=== PATIENT | male | born 1945 | race Caucasian/White ===

== ENCOUNTER 2020-03-17 09:50 | Day surgery (SDC) | payer OTHER, MEDICARE ==
--- OUTSIDE RECORDS SUMMARY | 2020-03-17 09:53 | XMS REPORT | Clinical Summary ---
:1945 Author Organization [facility] Address [address] [place] [address] Care Team Providers Name Role Phone Matthew Skinner Unavailable Allergies Active Allergy Reactions Severity Noted Date Comments Oxycodone Nausea And Vomiting 09/02/2018 Medications Medication Sig Dispensed Refills Start Date End Date Status aspirin 81 MG EC Take 81 mg 0 Ac tive tablet by mouth daily. multivitamin per Take 1 0 Act fatuma tablet tablet by mouth daily. pantoprazole Take 40 mg 0 Active (PROTONIX) 40 MG by mouth tablet daily. acetaminophen Take 500 mg 0 Acti ve (TYLENOL) 500 MG by mouth as tablet needed for Pain. fluticasone Inhale 1 0 Active propion-salmeterol puff by (ADVAIR) 250-50 mouth via mcg/dose diskus inhaler 2 inhaler (two) times daily. atorvastatin Take 1 30 tablet 1 06/17/2018 d (LIPITOR) 40 MG tablet (40 0 tablet mg total) by mouth nightly. amLODIPine Take 1 90 tablet 0 09/29/2018 Disconti nued (NORVASC) 10 MG tablet (10 9 (St op Taking at tablet mg total) by Dischar ge) mouth daily. clopidogrel Take 1 90 tablet 0 09/29/2018 (PLAVIX) 75 mg tablet (75 0 tablet mg total) by mouth daily. metoprolol Take 1 90 tablet 0 09/29/2018 (TOPROL-XL) 25 MG tablet (25 0 24 hr tablet mg total) by mouth daily. mINOCYCLine Take 1 14 capsule 0 04/10/2019 d (MINOCIN,DYNACIN) capsule (100 9 100 MG capsule mg total) by mouth every 12 (twelve) hours for 7 days. Active Problems Problem Noted Date AAA (abdominal aortic aneurysm) 04/09/2019 Carotid stenosis 09/24/2018 Carotid stenosis, asymptomatic, bilateral 09/24/2018 CAD (coronary artery disease) 06/09/2018 S/P carotid endarterectomy 05/14/2018 Hypovolemic shock 05/14/2018 Acute blood loss anemia 05/14/2018 Respiratory insufficiency 05/14/2018 Carotid artery stenosis 05/13/2018 Encounters Date Type Specialty Care Team Description 04/09/2019 Surgery Jesica EVAR EXCLUSION SUSANNA Bolton MD - IP PROC ONLY* * 04/09/2019 - Hospital Encounter Cardiology Jesica Acute blo od loss 04/10/2019 MD Che anemia 04/09/2019 Orders Only General Internal Medicine 04/08/2019 Orders Only Lab Jesica Abdominal aorti c MD Che aneurysm withou t rupture (HCC) (Primary Dx) 04/08/2019 Orders Only Cardiology Che Mooney MD after 03/17/2019 Family History Medical History Relation Name Comments Cancer Father Relation Name Status Comments Father Social History Tobacco Use Types Packs/Day Years Used Date Former Smoker Cigarettes 1 50 Quit: 05/02/20 18 Smokeless Tobacco: Former User Chew, Snuff Alcohol Use Drinks/Week oz/Week Comments Yes 2 Cans of beer 2.0 occasional Alcohol Habits Answer Date Recorded How often do you have a drink containing alcohol? 2-4 times a month 05/08/2018 How many drinks containing alcohol do you have on a Not aske d typical day when you are drinking? How often do you have six or more drinks on one Not asked occasion? Sex Assigned at Date Recorded Not on file Last Filed Vital Signs Vital Sign Reading Time Taken Comments Blood Pressure 139/63 04/10/2019 7:31 AM [facility] Pulse 63 04/10/2019 7:31 AM [facility] Temperature 36.7 C (98.1 F) 04/10/2019 7:31 AM [facility] Respiratory Rate 18 04/10/2019 7:31 AM [facility] Oxygen Saturation 96% 04/10/2019 7:31 AM [facility] Inhaled Oxygen Concentration - - Weight 85.7 kg (189 lb) 04/10/2019 8:03 AM [facility] Height 189.2 cm (6' 2.5") 04/09/2019 5:30 AM [facility] Body Mass Index 23.94 04/09/2019 5:30 AM [facility] Plan of Treatment Health Maintenance Due Date Last Done Comments COLON CANCER SCREENING COLONOSCOPY 1945 MEDICARE ANNUAL WELLNESS (YEAR 2 or FIRST YEAR if no 03/04/2012 IPPE) INFLUENZA VACCINE (#1) 2020 PNEUMOCOCCAL 65+ YRS Completed 11/06/2017 Implants Implanted Type Area Clean Up Helper Banquet Device Shelf Model / Identifier Expiration Serial / Date Lot Floseal [facility] Full Strlprep 5ml [id number] - Sn/A Cement/[place] KING:BIOSCI 08/01/2019 [id number] / Implanted: Qty: 1 on 05/13/2018 at [facility] r/Adhesive N/A / [id number] Stent Excluder C3 [id number] [id number] - [id number] IMPLANTS N/A: WL GORE & 02/11/2022 [id number] / Implanted: Qty: 1 on 04/09/2019 by Che Diego MD at [facility] Aorta ASSC:MED PRDT [id number] / Grft Excluder 14.5x14mm [id number] - [id number] IMPLANTS Left: W L GORE & 03/30/2021 [id number] / Implanted: Qty: 1 on 04/09/2019 by Che Diego MD at [facility] Iliac ASSC:MED PRDT [id number] / Patch Pericard Bovine 8x14cm [id number] - Sn/A Tissue Left: [employer] 10/10/2022 [id number] / Implanted: Qty: 1 on 05/13/2018 by Madison Lopez MD at [facility] Graft/Substi Neck TECH:SURG INNOV N/A / tute [id number] Patch Periph Vascu-Grd 0.8x8cm [id number] - [id number] Tissue [employer] 02/18/2023 [id number] / Implanted: Qty: 1 on 09/24/2018 by Madison Lopez MD at [facility] Graft/Substi TECH:SURG INNOV / tute [id number] Procedures Procedure Name Priority Date/Time Associated Comments Diagnosis VASCULAR DIAGRAM 04/20/2019 5:30 -SCAN PM [facility] REPORT OF PROCEDURE - 04/14/2019 11:05 ENDOSCOPY SCAN AM [facility] CARDIAC CATH REPORT - 04/14/2019 11:05 SCAN AM [facility] VASCULAR DIAGRAM 04/14/2019 11:05 -SCAN AM [facility] RHYTHM STRIP - SCAN 04/14/2019 11:05 AM [facility] TRANSFUSION SERVICE 04/10/2019 5:52 REPORT - SCAN PM [facility] (CELLAVISION MANUAL Routine 04/10/2019 3:47 Resu lts for this DIFF) AM [facility] procedure are i n the results section. CBC W/PLT COUNT & Routine 04/10/2019 3:47 Result s for this AUTO DIFFERENTIAL AM [facility] procedure are in the results section. CBC W/PLT COUNT & Routine 04/10/2019 3:47 Result s for this AUTO DIFFERENTIAL AM [facility] procedure are in the results section. BASIC METABOLIC PANEL Routine 04/10/2019 3:47 Re sults for this (7) AM [facility] procedure are i n the results section. TRANSFUSION SERVICE 04/09/2019 6:05 REPORT - SCAN PM [facility] ECG 12-LEAD Routine 04/09/2019 12:45 Results for this PM [facility] procedure are i n the results section. ECG 12-LEAD Routine 04/09/2019 12:45 PM [facility] Procedure Note - Interface, External Ris In - 04/09/2019 11:48 AM [facility] Ventricular Rate 60 BPM Atrial Rate 60 BPM P-R Interval 168 ms QRS Duration 100 ms Q-T Interval 428 ms QTC Calculation(Bazett) 428 ms P [place] 69 degrees R [place] -59 degrees T [place] 33 degrees Sinus rhythm with marked sin us arrhythmia Left anterior fascicular blo ck Abnormal ECG When compared with ECG of 09:29, Premature atrial complexes a re no longer Present PREPARE LEUKO-REDUCED Routine 04/09/2019 10:45 AM Results for this RBC [facility] procedure are i n the results section. POCT-ACT Routine 04/09/2019 9:44 AM Results for this [facility] procedure are i n the results section. POCT-ACT Routine 04/09/2019 9:07 AM Results for this [facility] procedure are i n the results section. EVAR EXCLUSION MCR - 04/09/2019 6:48 AM Abdominal a ortic IP PROC ONLY [facility] aneurysm (AAA) without rupture (HCC) Case Notes (1)case POP6 (CELLAVISION MANUAL STAT 04/09/2019 6:09 AM R esults for this DIFF) [facility] procedure are i n the results section. CBC W/PLT COUNT & AUTO STAT 04/09/2019 6:09 AM Results for this DIFFERENTIAL [facility] procedure are i n the results section. BASIC METABOLIC PANEL STAT 04/09/2019 6:09 AM Results for this (7) [facility] procedure are i n the results section. CBC W/PLT COUNT & AUTO STAT 04/09/2019 6:09 AM Results for this DIFFERENTIAL [facility] procedure are i n the results section. TYPE AND SCREEN, Routine 04/08/2019 10:50 AM Abdominal aortic Results for this AUTOMATED [facility] aneurysm without procedure a re in rupture (HCC) the results section. PT/APTT Routine 04/08/2019 9:55 AM Abdominal aortic Resu lts for this [facility] aneurysm without procedure a re in rupture (HCC) the results section. (CELLAVISION MANUAL Routine 04/08/2019 9:54 AM Abdominal aort ic Results for this DIFF) [facility] aneurysm without procedure a re in rupture (HCC) the results section. CBC W/PLT COUNT & AUTO Routine 04/08/2019 9:54 AM Abdominal a ortic Results for this DIFFERENTIAL [facility] aneurysm without procedure a re in rupture (HCC) the results section. LIPID PANEL Routine 04/08/2019 9:54 AM Abdominal aortic Resu lts for this [facility] aneurysm without procedure a re in rupture (HCC) the results section. COMPREHENSIVE Routine 04/08/2019 9:54 AM Abdominal aortic Res ults for this METABOLIC PANEL [facility] aneurysm without procedur e are in rupture (HCC) the results section. CBC W/PLT COUNT & AUTO Routine 04/08/2019 9:54 AM Abdominal a ortic Results for this DIFFERENTIAL [facility] aneurysm without procedure a re in rupture (HCC) the results section. after 03/17/2019 Results VASCULAR DIAGRAM -SCAN (04/20/2019 5:30 PM [facility])Only the most recent of2 results within the time period is included. Narrative Performed At This result has an attachment that is no t available. EKG-SCANNED (04/14/2019 11:05 AM [facility]) Narrative Performed At This result has an attachment that is no t available. CARDIAC CATH REPORT - SCAN (04/14/2019 11:05 AM [facility]) Narrative Performed At This result has an attachment that is no t available. RHYTHM STRIP - SCAN (04/14/2019 11:05 AM [facility]) Narrative Performed At This result has an attachment that is no t available. TRANSFUSION SERVICE REPORT - SCAN (04/10/2019 5:52 PM [facility])Only the most recent of2 resultswithin the time period is included. Narrative Performed At This result has an attachment that is no t available. Manual Differential (04/10/2019 3:47 AM [facility])Only the most recent of3 results within the time period is included. Pathologist Sig nature % Neutros 76 % [facility] % Lymphs 6 % [facility] % Monos 14 % [facility] % Eos 4 % [facility] # Neutros 13.07 (H) 1.78 - 5.38 [facility] # Lymphs 1.03 (L) 1.32 - 3.57 [facility] # Monos 2.41 (H) 0.30 - 0.82 [facility] # Eos 0.69 (H) 0.04 - 0.54 [facility] Total Counted 100 [facility] RBC Morphology Normal [facility] WBC Morphology Normal [facility] Platelet Morphology Normal [facility] Artifact Present [facility] Platelet Conc Decreased [facility] Specimen Blood Narrative Performed At Received comment: [facility] User comments: Slide comments: Performing Organization Address City/State/Zipcode Phone Number [facility] [address] [place] [address] CENTER CBC with platelet count + automated diff (04/10/2019 3:47 AM F[facility]ER)Only the most recent of3 resultswithin the time period is included. Pathologist Sig nature WBC 17.2 (H) 3.5 - 10.5 K/L [facility] RBC 3.16 (L) 4.63 - 6.08 M/L [facility] Hemoglobin 10.2 (L) 13.7 - 17.5 GM/DL [facility] Hematocrit 32.7 (L) 40.1 - 51.0 % [facility] MCV 103.5 (H) 79.0 - 92.2 fL [facility] MCH 32.3 (H) 25.7 - 32.2 pg [facility] MCHC 31.2 (L) 32.3 - 36.5 GM/DL [facility] RDW 15.4 (H) 11.6 - 14.4 % [facility] Platelets 56 (L) 150 - 450 K/CU MM [facility] MPV 10.0 9.4 - 12.4 fL [facility] nRBC 0 0 - 0 /100 WBC [facility] Specimen Blood Performing Organization Address City/State/Zipcode Phone Number [facility] [address] [place] [address] [place] Basic Metabolic Panel (04/10/2019 3:47 AM [facility]ER)Only the most recent of2 results within the time period is included. Sodium 136 136 - 145 meq/L [facility] Potassium 4.7 3.5 - 5.1 meq/L [facility] Chloride 106 98 - 107 meq/L [facility] CO2 22 22 - 29 meq/L [facility] BUN 15 7 - 21 mg/dL [facility] Creatinine 1.11 0.57 - 1.25 [facility] mg/dL [facility] Glucose 95 70 - 105 mg/dL [facility] Calcium 8.6 8.4 - 10.2 [facility] mg/dL [facility] EGFR 65Comment: ESTIMATED mL/min/1.73 sq [facility] GFR IS NOT m [facility] ACCURATE CENTER CREATININE CLEARANCE IN PREDICTING GLOMERULAR FILTRATION RATE. ESTIMATED GFR IS NOT APPLICABLE FOR DIALYSIS PATIENTS. Specimen Blood Performing Organization Address City/[facility] Cent[facility]ode Phone Number [facility] [address] [place] [address] CENTER ECG 12 lead (04/09/2019 12:45 PM [facility]) Specimen Narrative Performed At Ventricular Rate 60 BPM GE MUSE Atrial Rate 60 BPM P-R Interval 168 ms QRS Duration 100 ms Q-T Interval 428 ms QTC Calculation(Bazett) 428 ms P [place] 69 degrees R [place] -59 degrees T [place] 33 degrees Sinus rhythm with marked sinus arrhythmi a Left anterior fascicular block Nonspecific ST and T wave abnormality Abnormal ECG When compared with ECG of 24-SEP-2018 09 :29, Premature atrial complexes are no longer Present Confirmed by MD Guillen Roberto ([id number]) on 04/09 2:36:08 PM Procedure Note Interface, External Ris In - 04/09/2019 2:36 PM [facility] Ventricular Rate 60 BPM Atrial Rate 60 BPM P-R Interval 168 ms QRS Duration 100 ms Q-T Interval 428 ms QTC Calculation(Bazett) 428 ms P [place] 69 degrees R [place] -59 degrees T [place] 33 degrees Sinus rhythm with marked sinus arrhythmi a Left anterior fascicular block Nonspecific ST and T wave abnormality Abnormal ECG When compared with ECG of 24-SEP-2018 09 :29, Premature atrial complexes are no longer Present Confirmed by MD Guillen Roberto ([id number]) on 04/09/2019 2:36:08 PM Performing Organization Address City/[facility]/Zipcode Phone Number [employer] MUSE Prepare Leuko-Red RBC (04/09/2019 10:45 AM F[facility]ER) Pathologist Sig nature CROSSMATCH COMPATIBLE SAFETRACE TX Unit ABO A Pos SAFETRACE TX UNIT NUMBER [id number] SAFETRACE TX Status RETURNED FROM ISSUE SAFETRACE TX Blood Bank Product RED BLOOD CELLS SAFETRACE TX PRODUCT CODE [id number] SAFETRACE TX CROSSMATCH COMPATIBLE SAFETRACE TX Unit ABO A Pos SAFETRACE TX UNIT NUMBER [id number] SAFETRACE TX Status RETURNED FROM ISSUE SAFETRACE TX Blood Bank Product RED BLOOD CELLS SAFETRACE TX PRODUCT CODE [id number] SAFETRACE TX Specimen Other Performing Organization Address City/[facility] Phone Number SAFETRACE TX POC ACTIVATED CLOTTING TIME (04/09/2019 9:44 AM F[facility]ING [facility]ER)Only the most recent of2 resultswithin the time period is included. Activated Clotting 208Comment: sec [facility] Reference Range: [facility] 74-137 seconds, CENTER Baseline/TESTED AT [address] [address] Specimen Blood Performing Organization Address [facility] Phone Number [address] [address] CENTER Type and screen, automated (For the [facility] Only) (04/08/2019 10:50 AM [facility]) Pathologist Sig nature ABO/RH AUTOMATED A POSITIVE [facility] Ab Scrn NEGATIVE [facility] Specimen Blood Performing Organization Address [facility] Phone Number [address] [address] PT/aPTT (04/08/2019 9:55 AM [facility]) Pathologist Sig nature Protime 13.2 11.9 - 14.2 seconds [facility] INR 1.0 <=5.9 [facility] PTT 35.7 22.5 - 36.0 seconds [facility] Specimen Blood Narrative Performed At Effective 10/29/2018: PT Reference Range [facility] Change New: 11.9-14.2 Previous: 11.7-14.7 RECOMMENDED COUMADIN/WARFARIN INR THERAPY RANGES STANDARD DOSE: 2.0-3.0 Includes: PROPHYLAXIS for venous thrombosis, systemic embolization; TREATMENT for venous thrombosis and/or pulmonary embolus. HIGH RISK: Target INR is 2.5-3.5 for patients wiht mechanical heart valves. Performing Organization Address [facility] Cent[facility]ode Phone Number [address] [address] [place] Lipid panel (04/08/2019 9:54 AM F[facility]) Pathologist Sig nature Triglycerides 140 mg/dL [facility] Cholesterol 166 mg/dL [facility] [place] HDL 43 mg/dL [facility] LDL Calculated 95 mg/dL [facility] [place] Specimen Blood Narrative Performed At Triglyceride Reference Range: [facility] Low Risk <150 Borderline 150-199 High Risk 200-499 Very High Risk >=500 Cholesterol Reference Range: Low Risk <200 Borderline 200-239 High Risk >240 HDL Cholesterol Reference Range: Low Risk >=60 High Risk <40 LDL Cholesterol Reference Range: Optimal <100 Near Optimal 100-129 Borderline 130-159 High 160-189 Very High >=190 Performing Organization Address City/[facility]/Zipcode Phone Number [address] [address] [place] Comprehensive metabolic panel (04/08/2019 9:54 AM F[facility]ING [facility]ER) Protein, Total 7.8 6.0 - 8.3 [facility] gm/dL [facility] Albumin 4.5 3.5 - 5.0 [facility] g/dL [facility] Alkaline 85 40 - 150 U/L [facility] Phosphatase [facility] Total Bilirubin 0.4 0.2 - 1.2 [facility] mg/dL [facility] Sodium 141 136 - 145 [facility] meq/L [facility] Potassium 4.9 3.5 - 5.1 [facility] meq/L [facility] Chloride 107 98 - 107 [facility] meq/L [facility] CO2 29 22 - 29 meq/L [facility] BUN 12 7 - 21 mg/dL [facility] Creatinine 1.12 0.57 - 1.25 [facility] mg/dL [facility] Glucose 104 70 - 105 [facility] mg/dL [facility] Calcium 9.6 8.4 - 10.2 [facility] mg/dL [facility] AST 24 5 - 34 U/L [facility] ALT 15 6 - 55 U/L [facility] EGFR 64Comment: mL/min/1.73 [facility] ESTIMATED GFR IS sq [facility] NOT [facility] CREATININE CLEARANCE IN PREDICTING GLOMERULAR FILTRATION RATE. ESTIMATED GFR IS NOT APPLICABLE FOR DIALYSIS PATIENTS. Specimen Blood Performing Organization Address City/State/Zipcode Phone Number [facility] [address] [place] [address] CENTER after 03/17/2019 Insurance Payer Benefit Plan / Subscriber ID Effective Dates Phone Addre ss Type Group MEDICARE MEDICARE A B [id number] 2011-Presen Medicare t MCR AARP/[place] [id number] 2017-Present Medigap SUPPLEMENT/[employer] (Home) [address] [place] [phone] Advance Directives For more information, please contact: [phone] Type Date Recorded Patient Acid Dipper Explanati on Power of Carpet Layer Helper 06/09/2018 12:00 AM Code Status Date Activated Date Inactivated Comments Full Code 04/09/2019 5:41 AM 04/10/2019 3:25 PM This code status was determined by: Patient Full Code 09/24/2018 1:57 PM 09/28/2018 5:01 PM This code status was determined by: Patient Full Code 09/24/2018 1:55 PM 09/24/2018 1:57 PM This code status was determined by: Patient Full Code 09/24/2018 7:46 AM 09/24/2018 1:55 PM This code status was determined by: Patient Full Code 06/09/2018 9:27 AM 09/24/2018 6:59 AM This code status was determined by: Patient
--- OUTSIDE RECORDS SUMMARY | 2020-03-17 10:01 | XMS REPORT | Continuity of Care Document ---
:1945 Author Organization [facility] t Address [address] [place] [address] Care Team Providers Name Role Phone MARGARET DIONI Primary Care Physician Unavailable SYSTEM, PROVIDER NOT IN Attending Clinician Unavailable Joss ZAMORA Attending Clinician Unavailable Ray Murphy RN Attending Clinician Unavailable Lisseth GONZALEZ Attending Clinician Dexter AQUINO, S Attending Clinician Unavailable LISSETH Attending Clinician Unavailable Pawel CALIX Attending Clinician VALENTE PRUITT Attending Clinician Unavailable Valente Pruitt MD Attending Clinician Shmuel AQUINO, G Attending Clinician Unavailable Adrien Escobar PharmD Attending Clinician Bayron Warner Attending Clinician Grace BENDING PRESS OPERATOR Attending Clinician Jayashree LAU, S Attending Clinician Unavailable EDILBERTO Attending Clinician Unavailable Edilberto GONZALEZ Attending Clinician Tayo AQUINO Attending Clinician Unavailable LINO Attending Clinician Unavailable Lino GONZALEZ Attending Clinician Phan AQUINO, R Attending Clinician Unavailable Aguilar Stern Attending Clinician Geeta AQUINO, T Attending Clinician Jorge A AQUINO, M Attending Clinician Unavailable Jasen NARVAEZ Attending Clinician Unavailable Emma PAVON, Jasen Attending Clinician Vargas PAVON, Joss Attending Clinician Romelia Burt MD Attending Clinician Ramona CALIX, A. Attending Clinician ALEXSANDRA NOGUEIRA Attending Clinician Unavailable Alexsandra Mccann Attending Clinician Benja AQUINO Attending Clinician Unavailable JOSE PENG Attending Clinician Unavailable Jose Peng MD Attending Clinician Maame AQUINO Attending Clinician Celsa Vallejo RN Attending Clinician Unavailable Jesica PAVON Attending Clinician JESICA Attending Clinician Unavailable GLORIA WANG Attending Clinician Unavailable MARGARET Attending Clinician Unavailable JESICA Admitting Clinician Unavailable GLORIA WANG Admitting Clinician Unavailable MARGARET Admitting Clinician Unavailable Payers Payer Name Policy Type Policy Number Effective Date Expiration Source Date MEDICARE PART A AND B [id number] 2011 00:00:00 AARP-SECONDARY ONLY [id number] 2019 00:00:00 MEDICAREMEDICARE A [id number] [address] baig [id number] 2011 00:00:00 [facility] MCR [id number] SUPPLEMENT/INDIVIDUAL 00:00:00 [id number] 2017-[facility] ap Problems Condition Condition Condition Status Onset Resolution Last Treating Co mments Source Name Details Category Date Date Treatment Clinician Date 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 00:00: n (clinical) (clinical) 00 Encounter Encounter Disease Active 2019- for for 7-27 Anderso antineopla antineopla 00:00: n stic stic 00 chemothera chemothera py py 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 00:00: n leukemia leukemia 00 not having not having achieved achieved remission remission 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 00:00: n 00 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 00 Immunosupp Immunosupp Disease Active M D ression ression 12-10 Anderso 00:00: n 00 Hypertensi Hypertensi Disease Active M D on on 12-10 Anderso 00:00: n 00 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 12-10 Haroldo o coronary coronary 00:00: n artery artery 00 bypass bypass graft graft without without angina angina pectoris pectoris Peripheral Peripheral Disease Active M D vascular vascular 12-10 Haroldo o disease disease 00:00: n 00 Increased Increased Disease Active MD uric acid uric acid 12-10 [facility] level level 00:00: n 00 Other Other Disease Active MD specified specified 12-10 [facility] counseling counseling 00:00: n 00 AAA AAA Disease Active 2018-[address] [facility] (abdominal (abdominal 1-07 [facility] - aortic aortic 00:00: Medical aneurysm) aneurysm) 00 Cent er Carotid Carotid Disease Active [facility] stenosis stenosis 4-[facility] [place] Carotid Carotid Disease Active [facility] stenosis, stenosis, 4-24 [facility] - asymptomat asymptomat 00:00: Me dical ic, ic, 00 Center bilateral bilateral CAD CAD Disease Active [facility] (coronary (coronary 1-07 [facility] - artery artery 00:00: Medical disease) disease) 00 Center S/P S/P Disease Active 2017-[address] [facility] carotid carotid 2-12 [facility] - endarterec endarterec 00:00: Me dical claudette claudette 00 Center Hypovolemi Hypovolemi Disease Active 2017-[address] c shock c shock 2-12 [facility] 00:[facility]: Medical [facility] [place] Acute Acute Disease Active 2017-[address] [facility] blood loss blood loss 2-12 [facility] - anemia anemia 00:00: Medical 00 Center Respirator Respirator Disease Active 2018-[address] y y 2-12 [facility] - insufficie insufficie 00:00: Me dical ncy ncy 00 Center Carotid Carotid Disease Active 2017-[address] [facility] artery artery 2-11 [facility] - stenosis stenosis 00:00: Medica l 00 Center Allergies, Adverse Reactions, Alerts Allergy Allergy Status Severity Reaction(s) Onset Inactive Treating Comm ents Source Name Type Date Date Clinician Oxycodon Propensi Active Nausea And 2018- [facility]omiting [facility]02 [facility] adverse 00:[facility]: Medical reaction 00 Center s Family History Family Member Diagnosis Comments Start Date Stop Date Source Natural father Cancer [facility] Natural father Lung cancer MD Zarco on Natural father Prostate cancer MD Roslyn soares Social History Social Habit Start Date Stop Date Quantity Comments Source History [facility] - Alcohol Std Drinks Medica [facility] History [facility] - Alcohol Binge Medical [address] ter Sex Assigned At MD Zarco on Exposure to Not sure MD Dao SARS-CoV-2 (event) Cigarettes smoked 2020-01-11 2020-01-11 MD Xavier rsmaikel current (pack per 00:00:00 00:00:00 day) - Reported Cigarette 2020-01-11 2020-01-11 MD Dao pack-years 00:00:00 00:00:00 Tobacco use and 2020-01-11 2020-01-11 Never used MD Zarco on exposure 00:00:00 00:00:00 Alcohol intake 2020-01-11 2020-01-11 Current drinker of MD Dao 00:00:00 00:00:00 alcohol (finding) Tobacco Comment 2019-12-10 2019-12-10 quit just prior to Betty Dao 00:00:00 00:00:00 left and rt. carodid surgery and open heart/ 2 bypass History SDOH 2018-05-08 2018-05-[address] [facility] - Alcohol Frequency 00:00:00 00:00:00 [facility] Alcohol Comment 2018-05-08 2018-05-[address] [facility] - 00:00:00 00:00:00 [facility] History of tobacco 1963-10-01 2018-05-02 Current smoker MD Dao use 00:00:00 00:00:00 Smoking Status Start Date Stop Date Source Former smoker 2020-01-11 00:00:00 2020-01-11 00:00:00 MD [place] anneliese Medications Ordered Filled Start Stop Current Ordering Indication Dosage Frequency Signature Comments Components Source Medication Medication Date Date Medication? Clinician (SIG) Name Name valACYclovi 2019-06 Yes Myelodyspla 500mg Take 1 MD denny (VALTREX) 0-06 [facility] tablet Haroldo o 500 mg 00:00: syndrome (500 mg) n tablet 00 (clinical) by mouth daily. amLODIPine 2019-06 Yes daily. (NORVASC) 0 Anderso 10 mg 16:02: n tablet 26 aspirin 81 2019-06 Yes daily. MD mg EC 0- Anderso tablet 16:02: n 26 metoprolol 2019-06 Yes 12.5mg 12.5 mg MD succinate 0-01 daily. Anderso (TOPROL XL) 16:02: n 25 mg 24 hr 26 tablet multivitami 2019-06 Yes 1{tbl} Take 1 MD n 0- tablet by Andersdejan (THERAGRAN) 16:02: mouth as n tablet 26 needed. pantoprazol 2019-06 Yes daily. MD bernal 0 Anderso (PROTONIX) 16:02: n 40 mg EC 26 tablet INV-(2019-06 2020- No Myelodyspla 100mg Take 1 MD 025) 003-11 [facility] 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 Take on days 1-7 in combinatio n with Cedazudrid ine. No food 2 hours before and 2 hours after dose. INV-(2019-06- No Myelodyspla 100mg Take 1 MD 025) 003-11 [facility] tablet Anderso cedazuridin 00:00: 04:59 syndrome (100 mg) n e 100 mg 00 :00 (clinical) by mouth tablet daily for 7 days. Take on days 1-7 in combinatio n with azaCITIDin e. No food 2 hours before and 2 hours after dose. erythromyci Yes 1{appli Administer MD apple (ROMYCIN) 9-22 cation} 1 Pietro so ophthalmic 00:00: applicatio n ointment 00 n to the right eye twice daily. acyclovir 2020-0 Yes 1{tbl} Take 1 MD (ZOVIRAX) 9-22 tablet by Pietro so 800 mg 00:00: mouth 5 n tablet 00 (five) times a day. INV-(0 2020- No Myelodyspla 100mg Take 1 MD 025) 02-03 stic 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 [facility] Cedazudrid ine. No food 2 hours before and 2 hours after dose. 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 Take 1 MD 025) 02-03 stic tablet Anderso cedazuridin 00:00: 04:59 syndrome (100 mg) n e 100 mg 00 :00 (clinical) by mouth tablet daily for 7 days. Take on days 1-7 in combinatio n with azaCITIDin e. No food 2 hours before and 2 hours after dose. acetaminoph Yes 500mg Take 500 M D en 8-31 mg by Anderso (TYLENOL) 12:57: mouth n 500 mg 27 every 6 tablet (six) hours as needed. senna-docus 0 Yes Constipatio 1{tbl} Take 1 MD ate (Senna 8-14 n, not tablet by An derso Plus) 8.6 00:00: otherwise mouth 2 n mg-50 mg 00 specified (two) tablet times a day as needed for constipati on. ondansetron Yes Myelodyspla 8mg Dissolve 1 MD (ZOFRAN-ODT 01-03 stic tablet (8 And erso ) 8 mg 00:00: syndrome mg) on the n disintegrat 00 (clinical) tongue ing tablet every 8 (eight) hours as needed for nausea (prior to chemothera py). 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 Take 1 MD 025) 01-03 [employer] tablet Anderso azaCITIDine 00:00: 00:00 syndrome (100 mg) n 100 mg 00 :00 (clinical) by mouth tablet as directed. Take once on Day -3 (01/05/20) and then starting on Day 2 (01/08/20) take in combinatio n with Cedazuridi ne daily until Day 7. No food 2 hours before and 2 hours after dose. INV-(2020-0 2019-0 2020- No Myelodyspla 100mg Take 1 MD 025) 01-03 stic tablet Anderso cedazuridin 00:00: 00:00 syndrome (100 mg) n e 100 mg 00 :00 (clinical) by mouth tablet as directed. Start taking on Day 2 (01/08/20) in combinatio n with oral azaCITIDin e daily until Day 7 and take one additional dose on Day 22 (01/28/20). No food 2 hours before and 2 hours after dose. allopurinol Yes Chronic 100mg Take 1 MD (Zyloprim) 7-13 myelomonocy tablet Anderso 100 mg 00:00: tic (100 mg) n tablet 00 leukemia by mouth daily. tadalafiL Yes TAKE 1 MD (CIALIS) 10 5-11 TABLET BY And erso mg tablet 00:00: MOUTH n 00 EVERY 72 HOURS NEEDED aspirin 81 2018-06 Yes 81mg QD Take [address] MG EC 1-08 by mouth [facility] - tablet 13:25: daily. Medical 28 Center multivitami 2018-06 Yes 1{tbl} QD Take [address] n per 1-08 tablet by [facility] - tablet 13:25: mouth Medical 28 daily. Center pantoprazol 2018-06 Yes 40mg QD Take [address] [facility] e 1-08 by mouth [facility] - (PROTONIX) 13:25: daily. Medic al 40 MG 28 Center tablet acetaminoph 2018-06 Yes 500mg Take [address] en 1-08 mg by [facility] - (TYLENOL) 13:25: mouth as Medi ilya 500 MG 28 needed for Center tablet Pain. fluticasone 2018-06 Yes 1{puff} Q.5D Inhale [address] propion-beatriz 1-08 puff by [facility] - meterol 13:25: mouth via Medic al (ADVAIR) 28 inhaler 2 Center 250-50 (two) mcg/dose times diskus daily. inhaler mINOCYCLine 2018-06 2019- No 100mg Take [address] (MINOCIN,DY - 11-15 capsule Luke s - NACIN) 100 00:00: 23:59 (100 mg Med ical MG capsule 00 :00 total) by Cent er mouth every 12 (twelve) hours for 7 days. clopidogrel 2019- No 75mg QD Take [address] [facility] (PLAVIX) 75 09-29 tablet (75 L ukes - mg tablet 00:00: 23:59 mg total) Me dical 00 :00 by mouth Center daily. metoprolol 2019- No 25mg QD Take [address] [facility] (TOPROL-XL) 09-29 tablet (25 L ukes - 25 MG 24 hr 00:00: 23:59 mg total) Medical tablet 00 :00 by mouth Center daily. amLODIPine No 10mg QD Take [address] [facility] (NORVASC) 09-29 tablet (10 Doris es - 10 MG 00:00: 00:00 mg total) Medica l tablet 00 :00 by mouth Center daily. atorvastati 2019- No 40mg QD Take [address] [facility] [facility] n (LIPITOR) 06-17 tablet (40 L ukes - 40 MG 00:00: 23:59 mg total) Medica l tablet 00 :00 by mouth Center nightly. rosuvastati Yes daily. n (CRESTOR) 06-10 Anderso 10 mg 00:00: n tablet 00 clopidogrel 2019- No daily. (PLAVIX) 75 06-10 Anderso mg tablet 00:00: 00:00 n 00 :00 Vital Signs Vital Name Observation Time Observation Value Comments Source WEIGHT 2020-03-03 09:09:24 84.2 kg WEIGHT 2020-03-03 09:09:24 84.2 kg WEIGHT 2020-02-04 10:35:22 86.4 kg WEIGHT 2020-02-04 10:35:22 86.4 kg WEIGHT 2020-01-11 11:06:00 87.2 kg WEIGHT 2020-01-11 11:06:00 87.2 kg WEIGHT 2020-01-11 09:07:00 87.2 kg WEIGHT 2020-01-11 09:07:00 87.2 kg WEIGHT 2019-12-24 13:38:43 86.6 kg WEIGHT 2019-12-24 13:38:43 86.6 kg Systolic blood 2020-03-03 18:26:00 129 mm[Hg] MD Alvares jeanine pressure Diastolic blood 2020-03-03 18:26:00 60 mm[Hg] MD Mcgowan nigelson pressure Heart rate 2020-03-03 18:26:00 86 /min MD Pietro coy Body temperature 2020-03-03 14:09:24 36.5 Idania Candice pickard Respiratory rate 2020-03-03 14:09:24 16 /min Candice pickard Body weight 2020-03-03 14:09:24 84.2 kg MD Pietro coy BMI 2020-03-03 14:09:24 24.84 kg/m2 Pietro coy Oxygen saturation in 2020-03-03 14:09:24 96 /min MD Dao Arterial blood by Pulse oximetry Body height 2019-12-10 15:08:03 184.1 cm MD Pietro coy Body weight 2019-04-10 08:03:00 85.73 kg [facility] BMI 2019-04-10 08:03:00 23.94 kg/m2 [facility] Systolic blood 2019-04-10 07:31:00 139 mm[Hg] [facility] Diastolic blood 2019-04-10 07:31:00 63 mm[Hg] [facility] Heart rate 2019-04-10 07:31:00 63 /min [facility] Body temperature 2019-04-10 07:31:00 36.72 Idania [facility] Respiratory rate 2019-04-10 07:31:00 18 /min [facility] Oxygen saturation in 2019-04-10 07:31:00 96 /min [facility] Arterial blood by Medical Ce nter Pulse oximetry Body height 2019-04-09 05:30:00 189.2 cm [facility] Procedures Procedure Date / Time Performing Clinician Source Performed HP CYTOGENETICS BLOOD 2020-03-03 18:23:00 Amarilys Montanez MD COLLECTION HP CG CHROMOSOME ANALYSIS 2020-03-03 18:23:00 Leonela Montanez MD FINAL REPORT HP FC SCATTER FINAL REPORT 2020-03-03 18:23:00 Agustina Montanez MD HEMATOPATHOLOGY BONE MARROW 2020-03-03 18:23:00 MD Feliberto Blackwell INTERPRETATION June HEMATOPATHOLOGY BONE MARROW 2020-03-03 18:23:00 MD Feliberto Blackwell DIFFERENTIAL June [facility] DIAGNOSTIC BONE MARROW 2020-03-03 15:30:00 Leonela Montanez MD ASPIRATIONS COMPREHENSIVE METABOLIC 2020-03-03 12:18:00 Amarilys Montanez MD PANEL COMPLETE BLOOD COUNT W/ 2020-03-03 12:18:00 Amarilys Montanez MD DIFFERENTIAL GAMMA GLUTAMYL TRANSFERASE 2020-03-03 12:18:00 Agustina Montanez MD LACTATE DEHYDROGENASE 2020-03-03 12:18:00 Amarilys Montanez MD MAGNESIUM LEVEL 2020-03-03 12:18:00 Amarilys Montanez MD Pietro son PHOSPHORUS LEVEL 2020-03-03 12:18:00 Amarilys Montanez MD Duc [facility]son URIC ACID 2020-03-03 12:18:00 Amarilys Montanez MD Pietro son URINALYSIS WITH MICROSCOPIC 2020-03-03 12:18:00 Tomas Montanez MD IF INDICATED TYPE AND SCREEN 2020-03-03 12:18:00 Amarilys Montanez MD Pietro son PERIPHERAL SMEAR FOR BONE 2020-03-03 12:18:00 Leonela Montanez MD MARROW GLUCOSE LEVEL 2020-03-03 12:18:00 Amarilys Montanez MD Pietro son BLOOD UREA NITROGEN 2020-03-03 12:18:00 Amarilys Montanez MD nderson ELECTROLYTE PANEL 2020-03-03 12:18:00 Amarilys Montanez MD And erson SERUM CREATININE 2020-03-03 12:18:00 Amarilys Montanez MD Duc [facility]son .GLOMERULAR FILTRATION RATE 2020-03-03 12:18:00 Tomas Montanez MD CALCIUM LEVEL TOTAL 2020-03-03 12:18:00 Amarilys Montanez MDrson ALBUMIN LEVEL 2020-03-03 12:18:00 Amarilys Montanez MD Pietro son ALKALINE PHOSPHATASE 2020-03-03 12:18:00 Amarilys Montanez MD ALANINE AMINOTRANSFERASE 2020-03-03 12:18:00 Amarilys Montanez MD ASPARTATE AMINOTRANSFERASE 2020-03-03 12:18:00 Agustina Montanez MD TOTAL PROTEIN 2020-03-03 12:18:00 Amarilys Montanez MD Pietro son FRACTIONATED BILIRUBIN 2020-03-03 12:18:00 Amarilys Montanez ABORH 2020-03-03 12:18:00 Amarilys Montanez MD Pietro son Results CBC 2020-03-03 12:18:00 Amarilys Montanez MD Pietro [facility] ANTIBODY SCREEN 2020-03-03 12:18:00 Amarilys Montanez MD Pietro [facility] MANUAL DIFFERENTIAL 2020-03-03 12:18:00 Amarilys Montanez MD nderson URINALYSIS MICROSCOPIC 2020-03-03 12:18:00 Amarilys Montanez TMP INTERPRETATION ANTIBODY 2020-03-03 12:18:00 Tomas Montanez MD SCREEN NEGATIVE CLOT EXPIRATION DATE 2020-03-03 12:18:00 Amarilys Montanez MD TYPE AND SCREEN 2020-02-04 15:16:00 Amarilys Montanez MD Pietro [facility] COMPLETE BLOOD COUNT W/ 2020-02-04 15:16:00 Amarilys Montanez MD DIFFERENTIAL TOTAL PROTEIN 2020-02-04 15:16:00 Amarilys Montanez MD Pietro [facility] ALBUMIN LEVEL 2020-02-04 15:16:00 Amarilys Montanez MD Pietro [facility] CALCIUM LEVEL TOTAL 2020-02-04 15:16:00 Amarilys Montanez MD nderson PHOSPHORUS LEVEL 2020-02-04 15:16:00 Amarilys Montanez MD [facility] GLUCOSE, RANDOM 2020-02-04 15:16:00 Amarilys Montanez MD Pietro [facility] BLOOD UREA NITROGEN 2020-02-04 15:16:00 Amarilys Montanez MD nderson SERUM CREATININE 2020-02-04 15:16:00 Amarilys Montanez MD [facility] URIC ACID 2020-02-04 15:16:00 Amarilys Montanez MD Pietrobanner FRACTIONATED BILIRUBIN 2020-02-04 15:16:00 Amarilys Montanez ALKALINE PHOSPHATASE 2020-02-04 15:16:00 Amarilys Montanez MD LACTATE DEHYDROGENASE 2020-02-04 15:16:00 Amarilys Montanez MD ALANINE AMINOTRANSFERASE 2020-02-04 15:16:00 Amarilys Montanez MD ELECTROLYTE PANEL 2020-02-04 15:16:00 Amarilys Montanez MD And erson MAGNESIUM LEVEL 2020-02-04 15:16:00 Amarilys Montanez MD Pietro son ASPARTATE AMINOTRANSFERASE 2020-02-04 15:16:00 Agustina Montanez MD GAMMA GLUTAMYL TRANSFERASE 2020-02-04 15:16:00 Agustina Montanez MD URINALYSIS WITH MICROSCOPIC 2020-02-04 15:16:00 Tomas Montanez MD IF INDICATED ABORH 2020-02-04 15:16:00 Amarilys Montanez MD Pietro [facility] ANTIBODY SCREEN 2020-02-04 15:16:00 Amarilys Montanez MD Pietro [facility] Results CBC 2020-02-04 15:16:00 Amarilys Montanez MD Pietrobanner MANUAL DIFFERENTIAL 2020-02-04 15:16:00 Amarilys Montanez MD nderson SERUM CREATININE 2020-02-04 15:16:00 Amarilys Montanez MD [facility] .GLOMERULAR FILTRATION RATE 2020-02-04 15:16:00 Tomas Montanez MD URINALYSIS MICROSCOPIC 2020-02-04 15:16:00 Amarilys Montanez CLOT EXPIRATION DATE 2020-02-04 15:16:00 Amarilys Montanez MD TMP INTERPRETATION ANTIBODY 2020-02-04 15:16:00 Tomas Montanez MD SCREEN NEGATIVE COMPLETE BLOOD COUNT W/ 2020-02-01 11:50:00 Amarilys Montanez MD DIFFERENTIAL TOTAL PROTEIN 2020-02-01 11:50:00 Amarilys Montanez MD Pietro [facility] ALBUMIN LEVEL 2020-02-01 11:50:00 Amarilys Montanez MD Pietro [facility] CALCIUM LEVEL TOTAL 2020-02-01 11:50:00 Amarilys Montanez MD nderson PHOSPHORUS LEVEL 2020-02-01 11:50:00 Amarilys Montanez MD [facility]son GLUCOSE, RANDOM 2020-02-01 11:50:00 Amarilys Montanez MD Pietro son BLOOD UREA NITROGEN 2020-02-01 11:50:00 Amarilys Montanez MD nderson SERUM CREATININE 2020-02-01 11:50:00 Amarilys Montanez MD [facility] URIC ACID 2020-02-01 11:50:00 Amarilys Montanez MD Pietrobanner FRACTIONATED BILIRUBIN 2020-02-01 11:50:00 Amarilys Montanez ALKALINE PHOSPHATASE 2020-02-01 11:50:00 Amarilys Montanez MD LACTATE DEHYDROGENASE 2020-02-01 11:50:00 Amarilys Montanez MD ALANINE AMINOTRANSFERASE 2020-02-01 11:50:00 Amarilys Montanez MD ELECTROLYTE PANEL 2020-02-01 11:50:00 Amarilys Montanez MD And erson MAGNESIUM LEVEL 2020-02-01 11:50:00 Amarilys Montanez MD Pietro son ABORH 2020-02-01 11:50:00 Amarilys Montanez MD [facility]anner ANTIBODY SCREEN 2020-02-01 11:50:00 Amarilys Montanez MD Pietro [facility] Results CBC 2020-02-01 11:50:00 Amarilys Montanez MD Piet[facility]anner MANUAL DIFFERENTIAL 2020-02-01 11:50:00 Amarilys Montanez MD nderson SERUM CREATININE 2020-02-01 11:50:00 Amarilys Montanez MD [facility] .GLOMERULAR FILTRATION RATE 2020-02-01 11:50:00 Tomas Montanez MD TMP INTERPRETATION ANTIBODY 2020-02-01 11:50:00 Tomas Montanez MD SCREEN NEGATIVE CLOT EXPIRATION DATE 2020-02-01 11:50:00 Amarilys Montanez MD TYPE AND SCREEN 2020-01-27 12:33:00 Amarilys Montanez MD Pietrobanner COMPLETE BLOOD COUNT W/ 2020-01-27 12:33:00 Amarilys Montanez MD DIFFERENTIAL TOTAL PROTEIN 2020-01-27 12:33:00 Amarilys Montanez MD Pietro son ALBUMIN LEVEL 2020-01-27 12:33:00 Amarilys Montanez MD Pietro son CALCIUM LEVEL TOTAL 2020-01-27 12:33:00 Amarilys Montanez MD nderson PHOSPHORUS LEVEL 2020-01-27 12:33:00 Amarilys Montanez MD [facility]son GLUCOSE, RANDOM 2020-01-27 12:33:00 Amarilys Montanez MD Pietro son BLOOD UREA NITROGEN 2020-01-27 12:33:00 Amarilys Montanez MD nderson SERUM CREATININE 2020-01-27 12:33:00 Amarilys Montanez MD [facility] URIC ACID 2020-01-27 12:33:00 Amarilys Montanez MD Pietro son FRACTIONATED BILIRUBIN 2020-01-27 12:33:00 Amarilys Montanez ALKALINE PHOSPHATASE 2020-01-27 12:33:00 Amarilys Montanez MD LACTATE DEHYDROGENASE 2020-01-27 12:33:00 Amarilys Montanez MD ALANINE AMINOTRANSFERASE 2020-01-27 12:33:00 Amarilys Montanez MD ELECTROLYTE PANEL 2020-01-27 12:33:00 Amarilys Montanez MD And erson MAGNESIUM LEVEL 2020-01-27 12:33:00 Amarilys Montanez MD Pietro son ABORH 2020-01-27 12:33:00 Amarilys Montanez MD Pietro son ANTIBODY SCREEN 2020-01-27 12:33:00 Amarilys Montanez MD Pietro son Results CBC 2020-01-27 12:33:00 Amarilys Montanez MD Pietro son MANUAL DIFFERENTIAL 2020-01-27 12:33:00 Amarilys Montanez MD nderson SERUM CREATININE 2020-01-27 12:33:00 Amarilys Montanez MD [facility] .GLOMERULAR FILTRATION RATE 2020-01-27 12:33:00 Tomas Montanez MD CLOT EXPIRATION DATE 2020-01-27 12:33:00 Amarilys Montanez MD TMP INTERPRETATION ANTIBODY 2020-01-27 12:33:00 Tomas Montanez MD SCREEN NEGATIVE TOTAL PROTEIN 2020-01-25 12:01:00 Amarilys Montanez MD Pietro son ALBUMIN LEVEL 2020-01-25 12:01:00 Amarilys Montanez MD Pietro son CALCIUM LEVEL TOTAL 2020-01-25 12:01:00 Amarilys Montanez MD nderson PHOSPHORUS LEVEL 2020-01-25 12:01:00 Amarilys Montanez MD Duc [facility]son GLUCOSE, RANDOM 2020-01-25 12:01:00 Amarilys Montanez MD Pietro [facility] BLOOD UREA NITROGEN 2020-01-25 12:01:00 Amarilys Montanez MD nderson SERUM CREATININE 2020-01-25 12:01:00 Amarilys Montanez MD Duc [facility]son URIC ACID 2020-01-25 12:01:00 Amarilys Montanez MD Pietrobanner FRACTIONATED BILIRUBIN 2020-01-25 12:01:00 Amarilys Montanez ALKALINE PHOSPHATASE 2020-01-25 12:01:00 Amarilys Montanez MD LACTATE DEHYDROGENASE 2020-01-25 12:01:00 Amarilsy Montanez MD ALANINE AMINOTRANSFERASE 2020-01-25 12:01:00 Amarilys Montanez MD ELECTROLYTE PANEL 2020-01-25 12:01:00 Amarilys Montanez MD And erson MAGNESIUM LEVEL 2020-01-25 12:01:00 Amarilys Montanez MD Piet[facility]anner ASPARTATE AMINOTRANSFERASE 2020-01-25 12:01:00 Agustina Montanez MD TYPE AND SCREEN 2020-01-25 12:01:00 Amarilys Montanez MD [facility]anner COMPLETE BLOOD COUNT W/ 2020-01-25 12:01:00 Amarilys Montanez MD DIFFERENTIAL SERUM CREATININE 2020-01-25 12:01:00 Amarilys Montanez MD Duc rson .GLOMERULAR FILTRATION RATE 2020-01-25 12:01:00 Tomas Montanez MD Results CBC 2020-01-25 12:01:00 Amarilys Montanez MD Piet[facility]anner MANUAL DIFFERENTIAL 2020-01-25 12:01:00 Amarilys Montanez MD nderson ABORH 2020-01-25 12:01:00 Amarilys Montanez MD [facility] ANTIBODY SCREEN 2020-01-25 12:01:00 Amarilys Montanez MD [facility] CLOT EXPIRATION DATE 2020-01-25 12:01: Amarilys Montanez MD TMP INTERPRETATION ANTIBODY 2020-01-25 12:01: Tomas Montanez MD SCREEN NEGATIVE COMPLETE BLOOD COUNT W/ 2020-01-21 12:29:00 Mervat Mercer MD nderson DIFFERENTIAL TOTAL PROTEIN 2020-01-21 12:29: Mervat Mercer MD ALBUMIN LEVEL 2020-01-21 12:29: Mervat Mercer MD CALCIUM LEVEL TOTAL 2020-01-21 12:29: Mervat Mercer MD [facility] PHOSPHORUS LEVEL 2020-01-21 12:29: Mervat Mercer MD GLUCOSE, RANDOM 2020-01-21 12:29: Mervat Mercer MD BLOOD UREA NITROGEN 2020-01-21 12:29: Mervat Mercer MD Pietrovirgil coy SERUM CREATININE 2020-01-21 12:29: Mervat Mercer MD URIC ACID 2020-01-21 12:29: Mervat Mercer MD FRACTIONATED BILIRUBIN 2020-01-21 12:29: Mervat Mercer MD derson ALKALINE PHOSPHATASE 2020-01-21 12:29: Mervat Mercer MD Duc [facility] LACTATE DEHYDROGENASE 2020-01-21 12:29: Mervat Mercer MD And erson ALANINE AMINOTRANSFERASE 2020-01-21 12:29: Mervat Mercer MD ELECTROLYTE PANEL 2020-01-21 12:29: Mervat Mercer MD And[place] n MAGNESIUM LEVEL 2020-01-21 12:29: Mervat Mercer MD ABORH 2020-01-21 12:29: Mervat Mercer MD ANTIBODY SCREEN 2020-01-21 12:29: Mervat Mercer MD Results CBC 2020-01-21 12:29: Mervat Mercer MD MANUAL DIFFERENTIAL 2020-01-21 12:29:00 Mervat Mercer MD Pietro coy SERUM CREATININE 2020-01-21 12:29: Mervat Mercer MD .GLOMERULAR FILTRATION RATE 2020-01-21 12:29: Mervat Mercer MD TMP INTERPRETATION ANTIBODY 2020-01-21 12:29:00 Mervat Mercer MD SCREEN NEGATIVE CLOT EXPIRATION DATE 2020-01-21 12:29:00 Mervat Mercer MD Duc [facility] TOTAL PROTEIN 2020-01-18 11:49:00 Amarilys Montanez MD Pietro son ALBUMIN LEVEL 2020-01-18 11:49:00 Amarilys Montanez MD [facility] son CALCIUM LEVEL TOTAL 2020-01-18 11:49:00 Amarilys Montanez MD nderson PHOSPHORUS LEVEL 2020-01-18 11:49:00 Amarilys Montanez MD Duc rson GLUCOSE, RANDOM 2020-01-18 11:49:00 Amarilys Montanez MD Piet[facility] son BLOOD UREA NITROGEN 2020-01-18 11:49:00 Amarilys Montanez MD nderson SERUM CREATININE 2020-01-18 11:49:00 Amarilys Montanez MD [facility] URIC ACID 2020-01-18 11:49:00 Amarilys Montanez MD [facility] FRACTIONATED BILIRUBIN 2020-01-18 11:49:00 Amarilys Montanez ALKALINE PHOSPHATASE 2020-01-18 11:49:00 Amarilys Montanez MD LACTATE DEHYDROGENASE 2020-01-18 11:49:00 Amarilys Montanez MD ALANINE AMINOTRANSFERASE 2020-01-18 11:49:00 Amarilys Montanez MD ELECTROLYTE PANEL 2020-01-18 11:49:00 Amarilys Montanez MD And erson MAGNESIUM LEVEL 2020-01-18 11:49:00 Amarilys Montanez MD [facility] ASPARTATE AMINOTRANSFERASE 2020-01-18 11:49:00 Agustina Montanez MD COMPLETE BLOOD COUNT W/ 2020-01-18 11:49:00 Amarilys Montanez MD DIFFERENTIAL SERUM CREATININE 2020-01-18 11:49:00 Amarilys Montanez MD [place] [facility] .GLOMERULAR FILTRATION RATE 2020-01-18 11:49:00 Tomas Montanez MD Results CBC 2020-01-18 11:49:00 Amarilys Montanez MD [facility] MANUAL DIFFERENTIAL 2020-01-18 11:49:00 Amarilys Montanez MD nderson ABORH 2020-01-18 11:49:00 Amarilys Montanez MD [facility] ANTIBODY SCREEN 2020-01-18 11:49:00 Amarilys Montanez MD [facility] TMP INTERPRETATION ANTIBODY 2020-01-18 11:49:00 Tomas Montanez MD SCREEN NEGATIVE CLOT EXPIRATION DATE 2020-01-18 11:49:00 Amarilys Montanez MD TYPE AND SCREEN 2020-01-14 12:41:00 Amarilys Montanez MD [facility] COMPLETE BLOOD COUNT W/ 2020-01-14 12:41:00 Amarilys Montanez MD DIFFERENTIAL TOTAL PROTEIN 2020-01-14 12:41:00 Amarilys Montanez MD [facility] ALBUMIN LEVEL 2020-01-14 12:41:00 Amarilys Montanez MD [facility] CALCIUM LEVEL TOTAL 2020-01-14 12:41:00 Amarilys Montanez MD nderson PHOSPHORUS LEVEL 2020-01-14 12:41:00 Amarilys Montanez MD Duc [facility] GLUCOSE, RANDOM 2020-01-14 12:41:00 Amarilys Montanez MD [facility] BLOOD UREA NITROGEN 2020-01-14 12:41:00 Amarilys Montanez MD nderson SERUM CREATININE 2020-01-14 12:41:00 Amarilys Montanez MD [place] [facility] URIC ACID 2020-01-14 12:41:00 Amarilys Montanez MD [facility] FRACTIONATED BILIRUBIN 2020-01-14 12:41:00 Amarilys Montanez ALKALINE PHOSPHATASE 2020-01-14 12:41:00 Amarilys Montanez MD LACTATE DEHYDROGENASE 2020-01-14 12:41:00 Amarilys Montanez MD ALANINE AMINOTRANSFERASE 2020-01-14 12:41:00 Amarilys Montanez MD ELECTROLYTE PANEL 2020-01-14 12:41:00 Amarilys Montanez MD And erson MAGNESIUM LEVEL 2020-01-14 12:41:00 Amarilys Montanez MD [facility] ABORH 2020-01-14 12:41:00 Amarilys Montanez MD [facility] ANTIBODY SCREEN 2020-01-14 12:41:00 Amarilys Montanez MD Pietro son Results CBC 2020-01-14 12:41:00 Amarilys Montanez MD [facility] son MANUAL DIFFERENTIAL 2020-01-14 12:41:00 Amarilys Montanez MD nderson SERUM CREATININE 2020-01-14 12:41:00 Amarilys Montanez MD [place] [facility] .GLOMERULAR FILTRATION RATE 2020-01-14 12:41:00 Tomas Montanez MD CLOT EXPIRATION DATE 2020-01-14 12:41:00 Amarilys Montanez MD TMP INTERPRETATION ANTIBODY 2020-01-14 12:41:00 Tomas Montanez MD SCREEN NEGATIVE TYPE AND SCREEN 2020-01-11 13:31:00 Amarilys Montanez MD Piet[facility] son COMPLETE BLOOD COUNT W/ 2020-01-11 13:31:00 Amarilys Montanez MD DIFFERENTIAL TOTAL PROTEIN 2020-01-11 13:31:00 Amarilys Montanez MD Pietro son ALBUMIN LEVEL 2020-01-11 13:31:00 Amarilys Montanez MD Piet[facility] son CALCIUM LEVEL TOTAL 2020-01-11 13:31:00 Amarilys Montanez MD nderson PHOSPHORUS LEVEL 2020-01-11 13:31:00 Amarilys Montaenz MD [facility] GLUCOSE, RANDOM 2020-01-11 13:31:00 Amarilys Montanez MD Piet[facility] son BLOOD UREA NITROGEN 2020-01-11 13:31:00 Amarilys Montanez MD nderson SERUM CREATININE 2020-01-11 13:31:00 Amarilys Montanez MD [place] [facility] URIC ACID 2020-01-11 13:31:00 Amarilys Montanez MD Piet[facility] son FRACTIONATED BILIRUBIN 2020-01-11 13:31:00 Amarilys Montanez ALKALINE PHOSPHATASE 2020-01-11 13:31:00 Amarilys Montanez MD LACTATE DEHYDROGENASE 2020-01-11 13:31:00 Amarilys Montanez MD ALANINE AMINOTRANSFERASE 2020-01-11 13:31:00 Amarilys Montanez MD ELECTROLYTE PANEL 2020-01-11 13:31:00 Amarilys Montanez MD And erson MAGNESIUM LEVEL 2020-01-11 13:31:00 Amarilys Montanez MD Pietro son ABORH 2020-01-11 13:31:00 Amarilys Montanez MD [facility] son ANTIBODY SCREEN 2020-01-11 13:31:00 Amarilys Montanez MD Piet[facility] son Results CBC 2020-01-11 13:31:00 Amarilys Montanez MD [facility] son MANUAL DIFFERENTIAL 2020-01-11 13:31:00 Amarilys Montanez MD nderson SERUM CREATININE 2020-01-11 13:31:00 Amarilys Montanez MD [place] [facility] .GLOMERULAR FILTRATION RATE 2020-01-11 13:31:00 Tomas Montanez MD CLOT EXPIRATION DATE 2020-01-11 13:31:00 Amarilys Montanez MD TMP INTERPRETATION ANTIBODY 2020-01-11 13:31:00 Tomas Montanez MD SCREEN NEGATIVE COMPLETE BLOOD COUNT W/ 2020-01-07 12:44:00 MD Feliberto Blackwell DIFFERENTIAL June GAMMA GLUTAMYL TRANSFERASE 2020-01-07 12:44:00 MD Feliberto Blackwell June COMPLETE BLOOD COUNT W/ 2020-01-07 12:44:00 Amarilys Montanez MD DIFFERENTIAL TOTAL PROTEIN 2020-01-07 12:44:00 Amarilys Montanez MD Pietro son ALBUMIN LEVEL 2020-01-07 12:44:00 Amarilys Montanez MD Piet[facility] son CALCIUM LEVEL TOTAL 2020-01-07 12:44:00 Amarilys Montanez MD nderson PHOSPHORUS LEVEL 2020-01-07 12:44:00 Amarilys Montanez MD Duc [facility] GLUCOSE, RANDOM 2020-01-07 12:44:00 Amarilys Montanez MD [facility] son BLOOD UREA NITROGEN 2020-01-07 12:44:00 Amarilys Montanez MD nderson SERUM CREATININE 2020-01-07 12:44:00 Amarilys Montanez MD [place] [facility] URIC ACID 2020-01-07 12:44:00 Amarilys Montanez MD Pietro son FRACTIONATED BILIRUBIN 2020-01-07 12:44:00 Amarilys Montanez ALKALINE PHOSPHATASE 2020-01-07 12:44:00 Amarilys Montanez MD LACTATE DEHYDROGENASE 2020-01-07 12:44:00 Amarilys Montanez MD ALANINE AMINOTRANSFERASE 2020-01-07 12:44:00 Amarilys Montanez MD ELECTROLYTE PANEL 2020-01-07 12:44:00 Amarilys Montanez MD And erson MAGNESIUM LEVEL 2020-01-07 12:44:00 Amarilys Montanez MD Piet[facility] son GLUCOSE LEVEL 2020-01-07 12:44:00 MD Feliberto Blackwell June BLOOD UREA NITROGEN 2020-01-07 12:44:00 Valente Pruitt MD [place] [facility] June ELECTROLYTE PANEL 2020-01-07 12:44:00 Valente Pruitt MD Harold[place] on June CALCIUM LEVEL TOTAL 2020-01-07 12:44:00 Valente Pruitt MD Duc [facility] June ALBUMIN LEVEL 2020-01-07 12:44:00 MD Feliberto Blackwell June ALKALINE PHOSPHATASE 2020-01-07 12:44:00 Valente Pruitt MD And erson June ALANINE AMINOTRANSFERASE 2020-01-07 12:44:00 MD Feliberto Blackwell June ASPARTATE AMINOTRANSFERASE 2020-01-07 12:44:00 MD Feliberto Blackwell June TOTAL PROTEIN 2020-01-07 12:44:00 MD Feliberto Blackwell June FRACTIONATED BILIRUBIN 2020-01-07 12:44:00 MD Candice Blackwell nderson June ABORH 2020-01-07 12:44:00 Amarilys Montanez MD Piet[facility] son ANTIBODY SCREEN 2020-01-07 12:44:00 Amarilys Montanez MD Piet[facility] son Results CBC 2020-01-07 12:44:00 Amarilys Montanez MD [facility] son MANUAL DIFFERENTIAL 2020-01-07 12:44:00 Amarilys Montanez MD nderson SERUM CREATININE 2020-01-07 12:44:00 Amarilys Montanez MD [place] [facility] .GLOMERULAR FILTRATION RATE 2020-01-07 12:44:00 Tomas Montanez MD CLOT EXPIRATION DATE 2020-01-07 12:44:00 Amarilys Montanez MD TMP INTERPRETATION ANTIBODY 2020-01-07 12:44:00 Tomas Montanez MD SCREEN NEGATIVE GENERAL LABORATORY ADD ON 2020-01-04 23:28:00 Leonela Montanez MD TEST TOTAL PROTEIN 2020-01-04 18:13:00 Amarilys Montanez MD [facility] ALBUMIN LEVEL 2020-01-04 18:13:00 Amarilys Montanez MD [facility] CALCIUM LEVEL TOTAL 2020-01-04 18:13:00 Amarilys Montanez MD nderson PHOSPHORUS LEVEL 2020-01-04 18:13:00 Amarilys Montanez MD [place] [facility] GLUCOSE, RANDOM 2020-01-04 18:13:00 Amarilys Montanez MD [facility] BLOOD UREA NITROGEN 2020-01-04 18:13:00 Amarilys Montanez MD nderson SERUM CREATININE 2020-01-04 18:13:00 Amarilys Montanez MD [place] [facility] URIC ACID 2020-01-04 18:13:00 Amarilys Montanez MD [facility] FRACTIONATED BILIRUBIN 2020-01-04 18:13:00 Amarilys Montanez ALKALINE PHOSPHATASE 2020-01-04 18:13:00 Amarilys Montanez MD LACTATE DEHYDROGENASE 2020-01-04 18:13:00 Amarilys Montanez MD ALANINE AMINOTRANSFERASE 2020-01-04 18:13:00 Amarilys Montanez MD ELECTROLYTE PANEL 2020-01-04 18:13:00 Amarilys Montanez MD And erson MAGNESIUM LEVEL 2020-01-04 18:13:00 Amarilys Montanez MD [facility] ASPARTATE AMINOTRANSFERASE 2020-01-04 18:13:00 Agustina Montanez MD TYPE AND SCREEN 2020-01-04 18:13:00 Amarilys Montanez MD [facility] COMPLETE BLOOD COUNT W/ 2020-01-04 18:13:00 Amarilys Montanez MD DIFFERENTIAL URINALYSIS WITH MICROSCOPIC 2020-01-04 18:13:00 Tomas Montanez MD IF INDICATED SERUM CREATININE 2020-01-04 18:13:00 Amarilys Montanez MD [place] [facility] .GLOMERULAR FILTRATION RATE 2020-01-04 18:13:00 Tomas Montanez MD Results CBC 2020-01-04 18:13:00 Amarilys Montanez MD Piet[facility] son MANUAL DIFFERENTIAL 2020-01-04 18:13:00 Amarilys Montanez MD nderson ABORH 2020-01-04 18:13:00 Amarilys Montanez MD [facility] ANTIBODY SCREEN 2020-01-04 18:13:00 Amarilys Montanez MD [facility] URINALYSIS MICROSCOPIC 2020-01-04 18:13:00 Amarilys Montanez CLOT EXPIRATION DATE 2020-01-04 18:13:00 Amarilys Montanez MD TMP INTERPRETATION ANTIBODY 2020-01-04 18:13:00 Tomas Montanez MD SCREEN NEGATIVE GAMMA GLUTAMYL TRANSFERASE 2020-01-04 18:13:00 Agustina Montanez MD ECHOCARDIOGRAM 2D COMPLETE 2019-12-29 12:50:31 Agustina Montanez MD URINALYSIS WITH MICROSCOPIC 2019-12-24 21:36:00 Tomas Montanez MD IF INDICATED URINALYSIS MICROSCOPIC 2019-12-24 21:36:00 Amrailys Montanez TOTAL PROTEIN 2019-12-24 17:43:00 Amarilys Montanez MD [facility] ALBUMIN LEVEL 2019-12-24 17:43:00 Amarilys Montanez MD [facility] CALCIUM LEVEL TOTAL 2019-12-24 17:43:00 Amarilys Montanez MD nderson PHOSPHORUS LEVEL 2019-12-24 17:43:00 Amarilys Montanez MD [place] [facility] GLUCOSE, RANDOM 2019-12-24 17:43:00 Amarilys Montanez MD [facility] BLOOD UREA NITROGEN 2019-12-24 17:43:00 Amarilys Montanez MD nderson SERUM CREATININE 2019-12-24 17:43:00 Amarilys Montanez MD [place] URIC ACID 2019-12-24 17:43:00 Amarilys Montanez MD [facility] FRACTIONATED BILIRUBIN 2019-12-24 17:43:00 Amarilys Montanez ALKALINE PHOSPHATASE 2019-12-24 17:43:00 Amarilys Montanez MD LACTATE DEHYDROGENASE 2019-12-24 17:43:00 Amarilys Montanez MD ALANINE AMINOTRANSFERASE 2019-12-24 17:43:00 Amarilys Montanez MD ELECTROLYTE PANEL 2019-12-24 17:43:00 Amarilys Montanez MD And erson MAGNESIUM LEVEL 2019-12-24 17:43:00 Amarilys Montanez MD [facility] ASPARTATE AMINOTRANSFERASE 2019-12-24 17:43:00 Agustina Montanez MD TYPE AND SCREEN 2019-12-24 17:43:00 Amarilys Montanez MD [facility] COMPLETE BLOOD COUNT W/ 2019-12-24 17:43:00 Amarilys Montanez MD DIFFERENTIAL SERUM CREATININE 2019-12-24 17:43:00 Amarilys Montanez MD [facility] .GLOMERULAR FILTRATION RATE 2019-12-24 17:43:00 Tomas Montanez MD Results CBC 2019-12-24 17:43:00 Amarilys Montanez MD [facility] MANUAL DIFFERENTIAL 2019-12-24 17:43:00 Amarilys Montanez MD nderson ABORH 2019-12-24 17:43:00 Amarilys Montanez MD [facility] ANTIBODY SCREEN 2019-12-24 17:43:00 Amarilys Montanez MD [facility] CLOT EXPIRATION DATE 2019-12-24 17:43:00 Amarilys Montanez MD TMP INTERPRETATION ANTIBODY 2019-12-24 17:43:00 Tomas Montanez MD SCREEN NEGATIVE HEMATOPATHOLOGY BONE MARROW 2019-12-16 02:49:00 MD Feliberto Blackwell DIFFERENTIAL June HP FC FLOW CYTOMETRY BLOOD 2019-12-14 20:22:00 Agustina Montanez MD COLLECTION HP MOLECULAR BLOOD 2019-12-14 20:22:00 Amarilys Montanez MD COLLECTION HP CYTOGENETICS BLOOD 2019-12-14 20:22:00 Amarilys Montanez MD COLLECTION HP CG CHROMOSOME ANALYSIS 2019-12-14 20:22:00 Leonela Montanez MD FINAL REPORT HP FLT3 ANALYSIS REPORT 2019-12-14 20:22:00 Agustina Montanez MD HP MD LEUKEMIA MUTATION 2019-12-14 20:22:00 Amarilys Montanez MD PANEL V1 HP FC MDS FINAL REPORT 2019-12-14 20:22:00 Amarilys Montanez HEMATOPATHOLOGY BONE MARROW 2019-12-14 20:22:00 MD Feliberto Blackwell INTERPRETATION June VA DIAGNOSTIC BONE MARROW 2019-12-14 19:00:00 Leonela Montanez MD BIOPSIES & ASPIRATIONS POTASSIUM VENOUS 2019-12-14 17:04:00 Edgar Nogueira MD [facility] [place] TYPE AND SCREEN 2019-12-14 14:46:00 Amarilys Montanez MD Pietro son COMPLETE BLOOD COUNT W/ 2019-12-14 14:46:00 Amarilys Montanez MD DIFFERENTIAL TOTAL PROTEIN 2019-12-14 14:46:00 Amarilys Montanez MD Pietro son ALBUMIN LEVEL 2019-12-14 14:46:00 Amarilys Montanez MD [facility] son CALCIUM LEVEL TOTAL 2019-12-14 14:46:00 Amarilys Montanez MD nderson PHOSPHORUS LEVEL 2019-12-14 14:46:00 Amarilys Montanez MD [place] [facility] GLUCOSE, RANDOM 2019-12-14 14:46:00 Amarilys Montanez MD [facility] son BLOOD UREA NITROGEN 2019-12-14 14:46:00 Amarilys Montanez MD nderson SERUM CREATININE 2019-12-14 14:46:00 Amarilys Montanez MD [place] [facility] URIC ACID 2019-12-14 14:46:00 Amarilys Montanez MD [facility] son FRACTIONATED BILIRUBIN 2019-12-14 14:46:00 Amarilys Montanez ALKALINE PHOSPHATASE 2019-12-14 14:46:00 Amarilys Montanez MD LACTATE DEHYDROGENASE 2019-12-14 14:46:00 Amarilys Montanez MD ALANINE AMINOTRANSFERASE 2019-12-14 14:46:00 Amarilys Montanez MD ELECTROLYTE PANEL 2019-12-14 14:46:00 Amarilys Montanez MD And erson MAGNESIUM LEVEL 2019-12-14 14:46:00 Aamrilys Montanez MD [facility] son PERIPHERAL SMEAR FOR BONE 2019-12-14 14:46:00 Leonela Montanez MD MARROW ABORH 2019-12-14 14:46:00 Amarilys Montanez MD [facility] son ANTIBODY SCREEN 2019-12-14 14:46:00 Amarilys Montanez MD Pietro son Results CBC 2019-12-14 14:46:00 Amarilys Montanez MD [facility] son MANUAL DIFFERENTIAL 2019-12-14 14:46:00 Amarilys Montanez MD nderson SERUM CREATININE 2019-12-14 14:46:00 Amarilys Montanez MD [place] [facility] .GLOMERULAR FILTRATION RATE 2019-12-14 14:46:00 Tomas Montanez MD CLOT EXPIRATION DATE 2019-12-14 14:46:00 Amarilys Montanez MD TMP INTERPRETATION ANTIBODY 2019-12-14 14:46:00 Tomas Montanez MD SCREEN NEGATIVE TOTAL PROTEIN 2019-12-10 16:26:00 Amarilys Montanez MD [facility] son ALBUMIN LEVEL 2019-12-10 16:26:00 Amarilys Montanez MD [facility] son CALCIUM LEVEL TOTAL 2019-12-10 16:26:00 Amarilys Montanez MD nderson PHOSPHORUS LEVEL 2019-12-10 16:26:00 Amarilys Montanez MD Duc [facility] GLUCOSE, RANDOM 2019-12-10 16:26:00 Amarilys Montanez MD [facility] son BLOOD UREA NITROGEN 2019-12-10 16:26:00 Amarilys Montanez MD nderson SERUM CREATININE 2019-12-10 16:26:00 Amarilys Montanez MD [place] [facility] URIC ACID 2019-12-10 16:26:00 Amarilys Montanez MD [facility] son FRACTIONATED BILIRUBIN 2019-12-10 16:26:00 Amarilys Montanez ALKALINE PHOSPHATASE 2019-12-10 16:26:00 Amarilys Montanez MD LACTATE DEHYDROGENASE 2019-12-10 16:26:00 Amarilys Montanez MD ALANINE AMINOTRANSFERASE 2019-12-10 16:26:00 Amarilys Montanez MD ELECTROLYTE PANEL 2019-12-10 16:26:00 Amarilys Montanez MD And erson MAGNESIUM LEVEL 2019-12-10 16:26:00 Amarilys Montanez MD [facility] son ASPARTATE AMINOTRANSFERASE 2019-12-10 16:26:00 Agustina Montanez MD THYROID STIMULATING HORMONE 2019-12-10 16:26:00 Tomas Montanez MD FIBRINOGEN ACTIVITY 2019-12-10 16:26:00 Amarilys Montanez MD nderson VITAMIN B12 LEVEL 2019-12-10 16:26:00 Amarilys Montanez MD And erson RETICULOCYTE COUNT 2019-12-10 16:26:00 Amarilys Montanez MD derson AUTOMATED FOLATE LEVEL 2019-12-10 16:26:00 Amarilys Montanez MD Piet[facility] son FERRITIN LVL 2019-12-10 16:26:00 Amarilys Montanez MD [facility] D DIMER 2019-12-10 16:26:00 Amarilys Montanez MD [facility] ERYTHROPOIETIN LEVEL 2019-12-10 16:26:00 Amarilys Montanez MD NT PRO BNP 2019-12-10 16:26:00 Amarilys Montanez MD [facility] TYPE AND SCREEN 2019-12-10 16:26:00 Amarilys Montanez MD [facility] HEPATITIS B CORE ANTIBODY 2019-12-10 16:26:00 Leonela Montanez MD HEPATITIS C VIRUS ANTIBODY 2019-12-10 16:26:00 Agustina Montanez MD HC HIV 1/2 AG AND AB 4TH 2019-12-10 16:26:00 Amarilys Montanez MD GEN RAPID PLASMA REAGIN (RPR) 2019-12-10 16:26:00 Leonela Montanez MD COMPLETE BLOOD COUNT W/ 2019-12-10 16:26:00 Amarilys Montanez MD DIFFERENTIAL PROTHROMBIN TIME 2019-12-10 16:26:00 Amarilys Montanez MD [facility] PARTIAL THROMBOPLASTIN TIME 2019-12-10 16:26:00 Tomas Montanez MD RESEARCH PROTOCOL 2019-12-10 16:26:00 Amarilys Montanez MD And paytonon [id number] SERUM CREATININE 2019-12-10 16:26:00 Amarilys Montanez MD [facility] .GLOMERULAR FILTRATION RATE 2019-12-10 16:26:00 Tomas Montanez MD ABORH 2019-12-10 16:26:00 Amarilys Montanez MD Pietro son ANTIBODY SCREEN 2019-12-10 16:26:00 Amarilys Montanez MD Piet[facility] son Results CBC 2019-12-10 16:26:00 Amarilys Montanez MD [facility] son MANUAL DIFFERENTIAL 2019-12-10 16:26:00 Amarilys Montanez MD nderson CLOT EXPIRATION DATE 2019-12-10 16:26:00 Amarilys Montanez MD TMP INTERPRETATION ANTIBODY 2019-12-10 16:26:00 Tomas Montanez MD SCREEN NEGATIVE TMP HIV 1/2 AG&AB PATH 2019-12-10 16:26:00 Amarilys Montanez INTERP TMP HTLV INTERP 2019-12-10 16:26:00 Amarilys Montanez MD Pietro son TMP HBCAB INTERP 2019-12-10 16:26:00 Amarilys Montanez MD Duc [place] TMP HBSAG INTERP 2019-12-10 16:26:00 Amarilys Montanez MD [place] [facility] TMP HCVAB INTERP 2019-12-10 16:26:00 Amarilys Montanez MD [place] [facility] TMP RPR PATH INTERP 2019-12-10 16:26:00 Amarilys Montanez MD nderson CONFIRM ABORH TYPE 2019-12-10 16:22:00 Amarilys Montanez MDson COVID19 AUTOMATED PCR 2019-12-08 12:04:00 Rochelle Vallejo MD [place] PATHOLOGY OUTSIDE 2019-11-06 00:00:00 [facility] INTERPRETATION HEMATOPATHOLOGY BONE MARROW 2019-11-06 00:00:00 Jeffrey Burt MD DIFFERENTIAL VASCULAR DIAGRAM -SCAN 2019-04-20 17:30:08 Provider, Default [facility] REPORT OF PROCEDURE - 2019-04-14 11:05:36 Provider, Default [facility] CARDIAC CATH REPORT - SCAN 2019-04-14 11:05:33 Provider, [facility] VASCULAR DIAGRAM -SCAN 2019-04-14 11:05:31 Provider, [facility] RHYTHM STRIP - SCAN 2019-04-14 11:05:26 Provider, [facility] TRANSFUSION SERVICE REPORT 2019-04-10 17:52:05 Provider, [facility] - - SCAN [facility] BASIC METABOLIC PANEL (7) 2019-04-10 03:47:00 Che Mooney [facility] CBC W/PLT COUNT & AUTO 2019-04-10 03:47:00 Che Mooney [facility] (CELLAVISION MANUAL DIFF) 2019-04-10 03:47:00 Jesica reanldofllona [facility] TRANSFUSION SERVICE REPORT 2019-04-09 18:05:53 Provider, [facility] ECG 12-LEAD 2019-04-09 12:45:32 Unknown, [facility] PREPARE LEUKO-REDUCED RBC 2019-04-09 10:45:00 Che Mooney [facility] POCT-ACT 2019-04-09 09:44:00 Che Mooney [facility] POCT-ACT 2019-04-09 09:07:00 Wedni renaldofllona [facility] EVAR EXCLUSION MCR - IP 2019-04-09 06:48:00 Che Mooney [facility] PROC ONLY [facility] BASIC METABOLIC PANEL (7) 2019-04-09 06:09:00 Che Mooney [facility] CBC W/PLT COUNT & AUTO 2019-04-09 06:09:00 Che Mooney [facility] (CELLAVISION MANUAL DIFF) 2019-04-09 06:09:00 Che Mooney [facility] TYPE AND SCREEN, AUTOMATED 2019-04-08 10:50:00 Che Mooney [facility] PT/APTT 2019-04-08 09:55:00 Che Mooney [facility] COMPREHENSIVE METABOLIC 2019-04-08 09:54:00 Che Mooney [facility] LIPID PANEL 2019-04-08 09:54:00 Che Mooney [facility] CBC W/PLT COUNT & AUTO 2019-04-08 09:54:00 Che Mooney [facility] (CELLAVISION MANUAL DIFF) 2019-04-08 09:54:00 Che Mooney [facility] Plan of Care Planned Activity Planned Date Details Comments Source Future Scheduled 2020-02-[address] [facility] - Test 00:00:00 (#1) [code = [facility] INFLUENZA VACCINE (#1)] Future Scheduled 2012-03-[address] [facility] - Test 00:00:00 WELLNESS (YEAR 2 or [facility] FIRST YEAR if no IPPE) [code = MEDICARE ANNUAL WELLNESS (YEAR 2 or FIRST YEAR if no IPPE)] Future Scheduled [address] [facility] - Test 00:00:00 malignant neoplasm Medical C enter of colon (procedure) [code = 191869528] Encounters Start End Encounter Admission Attending Care Care Encounter Source Date/Time Date/Time Type Type Clinicians Facility Department ID 2020-02-15 Outpatient SYSTEM, CARLOS GONZALEZ [id number] 11:42:17 PROVIDER Haroldo apple 2020-01-04 Outpatient CARLOS GONZALEZ [id number] 15:51:33 Chavez apple 2019-12-22 Outpatient MELBA ZAMORA, CARLOS GONZALEZ [id number] 11:07:13 RAFAEL apple 2019-11-26 Outpatient SYSTEM, CARLOS GONZALEZ [id number] 12:31:31 FABRIZIO apple 2020-03-03 2020-03-03 Outpatient MELBA MONTANEZ MDA MDA [id number] 10:30:00 23:59:00 AMARILYS apple 2020-03-03 2020-03-03 Outpatient MELBA MAY MDA, MDA [id number] 07:25:25 11:54:16 Haroldo PRUITT JUNE n 2020-03-03 2020-03-03 Outpatient LISSETH, MDA MDA [id number] 07:11:53 10:29:00 AMARILYS apple 2020-03-03 2020-03-03 Outpatient MAY MDA MDA [id number] MD 07:33:17 07:33:17 Haroldo PRUITT JUNE n 2020-02-15 2020-02-15 Outpatient MAY MDA MDA [id number] 00:00:00 00:00:00 Haroldo PRUITT JUNE n 2020-02-15 2020-02-15 Outpatient EL MAY MDA MDA [id number] MD 00:00:00 00:00:00 Haroldo PRUITT JUNE n 2020-02-11 2020-02-11 Outpatient MAY MDA MDA [id number] MD 00:00:00 00:00:00 Haroldo PRUITT JUNE n 2020-02-11 2020-02-11 [facility] [id number] 00:00:00 00:00:00 Haroldo PRUITT JUNE n 2020-02-04 2020-02-04 Outpatient MAY MDA MDA [id number] 07:30:00 23:59:00 Haroldo PRUITT JUNE n 2020-02-04 2020-02-04 [facility] MDA [id number] 13:01:22 13:01:22 Haroldo PRUITT JUNE n 2020-02-04 2020-02-04 [facility] MDA [id number] 09:47:29 11:23:48 Haroldo PRUITT JUNE n 2020-02-04 2020-02-04 Outpatient EL MAY MDA MDA [id number] 00:00:00 00:00:00 Haroldo PRUITT JUNE n 2020-02-01 2020-02-01 Outpatient LISSETH, MDA MDA [id number] 06:44:58 23:59:00 AMARILYS [place] n 2020-02-01 2020-02-01 Outpatient LISSETH, MDA MDA [id number] 06:44:46 06:44:46 AMARILYS [place] [facility] 2020-02-01 2020-02-01 Outpatient EL MAY MDA MDA [id number] MD 00:00:00 00:00:00 Haroldo PRUITT JUNE n 2020-02-01 2020-02-01 Outpatient EL MAY MDA MDA [id number] MD 00:00:00 00:00:00 Haroldo PRUITT JUNE n 2020-01-29 2020-01-29 Outpatient EL MAY MDA MDA [id number] MD 00:00:00 00:00:00 Haroldo PRUITT JUNE n 2020-01-28 2020-01-28 Outpatient EL MAY MDA MDA [id number] MD 00:00:00 00:00:00 Haroldo PRUITT JUNE n 2020-01-28 2020-01-28 Outpatient EL MAY MDA MDA [id number] MD 00:00:00 00:00:00 Haroldo PRUITT JUNE n 2020-01-28 2020-01-28 Outpatient EL MAY MDA MDA [id number] MD 00:00:00 00:00:00 Haroldo PRUITT JUNE n 2020-01-27 2020-01-27 Outpatient EL SALVATORA, MDA MDA [id number] MD 07:21:52 23:59:00 AMARILYS [place] [facility] [place] 2020-01-27 2020-01-27 Outpatient EL SALVATORA, MDA MDA [id number] 07:38:46 07:38:46 AMARILYS [place] [facility] 2020-01-27 2020-01-27 Outpatient EL MAY MDA MDA [id number] MD 07:21:31 07:21:31 Haroldo PRUITT JUNE n 2020-01-26 2020-01-26 Outpatient EL MAY MDA MDA [id number] MD 06:51:19 23:59:00 Haroldo PRUITT JUNE n 2020-01-25 2020-01-25 Outpatient EL SALVATORA, MDA MDA 1070 [id number] MD 06:39:14 23:59:00 AMARILYS [place] so n 2020-01-25 2020-01-25 Outpatient EL SALVATORA, MDA MDA [id number] 06:39:01 06:39:01 AMARILYS [place] so n 2020-01-25 2020-01-25 Outpatient EL MAY MDA MDA [id number] 00:00:00 00:00:00 Haroldo PRUITT JUNE n 2020-01-25 2020-01-25 Outpatient EL AMY MDA MDA [id number] MD 00:00:00 00:00:00 Haroldo PRUITT JUNE n 2020-01-21 2020-01-21 Outpatient EDILBERTO, MDA MDA [id number] MD 07:24:30 23:59:00 MERVAT wylie n 2020-01-21 2020-01-21 Outpatient EL EDILBERTO, MDA MDA [id number] MD 07:43:33 07:43:33 MERVAT wylie n 2020-01-21 2020-01-21 Outpatient EL MAY MDA MDA [id number] MD 07:24:47 07:24:47 Haroldo PRUITT JUNE n 2020-01-21 2020-01-21 Outpatient EL MAY MDA MDA [id number] 00:00:00 00:00:00 Haroldo PRUITT JUNE n 2020-01-21 2020-01-21 Outpatient EL MAY MDA MDA [id number] 00:00:00 00:00:00 Haroldo PRUITT JUNE n 2020-01-18 2020-01-18 [facility] 1070 [id number] 06:44:06 23:59:00 AMARILYS [place] so n 2020-01-18 2020-01-18 [facility] 1070 [id number] 06:43:55 06:43:55 AMARILYS [place] so n 2020-01-18 2020-01-18 Outpatient EL MAY MDA MDA [id number] 00:00:00 00:00:00 Haroldo PRUITT JUNE n 2020-01-18 2020-01-18 Outpatient EL MAY MDA MDA [id number] 00:00:00 00:00:00 Haroldo PRUITT JUNE n 2020-01-14 2020-01-14 Outpatient EL MAY MDA MDA [id number] 07:12:49 23:59:00 Haroldo PRUITT JUNE n 2020-01-14 2020-01-14 Outpatient EL MAY MDA MDA [id number] 08:48:08 08:48:08 Haroldo PRUITT 2020-01-14 2020-01-14 Outpatient EL MAY MDA MDA [id number] 07:42:35 07:42:35 Haroldo PRUITT JUNE n 2020-01-14 2020-01-14 Outpatient EL MAY MDA MDA [id number] 07:12:35 07:12:35 Haroldo PRUITT JUNE n 2020-01-13 2020-01-13 Outpatient EL MAY MDA MDA [id number] 07:05:08 23:59:00 Haroldo PRUITT 2020-01-13 2020-01-13 Outpatient EL MAY MDA MDA [id number] 07:32:19 07:32:19 Haroldo PRUITT n 2020-01-11 2020-01-11 Outpatient [facility], MDA MDA [id number] 10:02:52 13:20:01 GREG apple 2020-01-11 2020-01-11 Outpatient [facility], MDA MDA [id number] 08:57:34 09:48:53 AMARILYS apple 2020-01-11 2020-01-11 Outpatient [facility], MDA MDA 1069 [id number] 08:31:21 08:49:52 AMARILYS [place] so zechariah 2020-01-11 2020-01-11 [facility] [id number] 00:00:00 00:00:00 Haroldo PRUITT JUNE n 2020-01-11 2020-01-11 Outpatient EL MAY MDA MDA [id number] 00:00:00 00:00:00 Haroldo PRUITT JUNE n 2020-01-08 2020-01-08 Outpatient EL MAY MDA MDA [id number] 07:16:35 07:16:35 Haroldo PRUITT JUNE n 2020-01-07 2020-01-07 [facility] MDA [id number] 07:27:22 23:59:00 AMARILYS apple 2020-01-07 2020-01-07 [facility] [id number] 08:53:53 08:53:53 Haroldo PRUITT JUNE n 2020-01-07 2020-01-07 Outpatient [facility], MDA MDA [id number] 08:05:30 08:05:30 AMARILYS [place] so n 2020-01-07 2020-01-07 [facility] [id number] 07:26:26 07:26:26 Haroldo PRUITT JUNE n 2020-01-07 2020-01-07 [facility] MDA [id number] 07:15:00 07:26:00 Haroldo PRUITT JUNE n 2020-01-07 2020-01-07 [facility] [id number] 06:52:32 07:14:00 Haroldo PRUITT JUNE n 2020-01-05 2020-01-05 Outpatient [facility] MDA MDA [id number] 07:37:32 23:59:00 Haroldo PRUITT JUNE n 2020-01-05 2020-01-05 Outpatient [facility] MDA MDA [id number] 07:37:48 07:37:48 Haroldo PRUITT JUNE n 2020-01-05 2020-01-05 [facility] [id number] 07:01:56 07:36:00 Haroldo PRUITT JUNE n 2020-01-04 2020-01-04 Outpatient [facility], MDA MDA 1068 [id number] 12:55:40 23:59:00 AMARILYS [place] so n 2020-01-04 2020-01-04 [facility] MDA [id number] 13:20:42 13:20:42 Haroldo PRUITT JUNE n 2019-12-29 2019-12-29 Outpatient [facility], MDA MDA 1068 [id number] 06:48:03 23:59:00 AMARILYS [place] so n 2019-12-29 2019-12-29 [facility] [id number] 07:43:41 07:43:41 Haroldo PRUITT JUNE n 2019-12-29 2019-12-29 Outpatient EL SALVATORA, MDA MDA 1068 [id number] 00:00:00 00:00:00 AMARILYS Alvareser so n 2019-12-29 2019-12-29 Outpatient EL MAY MDA MDA [id number] 00:00:00 00:00:00 Haroldo PRUITT JUNE n 2019-12-24 2019-12-24 Outpatient EL SALVATORA, MDA MDA 1068 [id number] 16:25:48 23:59:00 AMARILYS Alvareser so n 2019-12-24 2019-12-24 Outpatient EL MAY MDA MDA [id number] 12:50:38 16:58:36 Haroldo PRUITT JUNE n 2019-12-24 2019-12-24 Outpatient EL SALVATORA, MDA MDA 1065 [id number] 12:27:52 16:24:00 AMARILYS Alvareser so n 2019-12-23 2019-12-23 Outpatient [facility] MDA MDA [id number] 07:26:00 23:59:00 Haroldo ANAND 2019-12-14 2019-12-14 Outpatient EL SALVATORA, MDA MDA [id number] 14:00:00 23:59:00 AMARILYS [place] so n 2019-12-14 2019-12-14 Outpatient EL JERO, MDA MDA [id number] MD 11:46:16 13:59:00 EDGAR hinojosao zechariah 2019-12-14 2019-12-14 Outpatient EL MAY MDA MDA [id number] 11:51:42 11:51:42 Haroldo PRUITT JUNE n 2019-12-14 2019-12-14 Outpatient EL DANISH, MDA MDA [id number] 10:03:00 11:45:00 Carolina apple 2019-12-14 2019-12-14 Outpatient EL SALVATORA, MDA MDA [id number] 09:25:53 10:02:00 AMARILYS Alvareser so n 2019-12-14 2019-12-14 Outpatient EL SALVATORA, MDA MDA 1065 [id number] 09:26:08 09:26:08 AMARILYS Alvareser so n 2019-12-10 2019-12-10 Outpatient EL SALVATORA, MDA MDA [id number] 11:12:14 23:59:00 AMARILYS apple 2019-12-10 2019-12-10 Outpatient MELBA MAY MDA MDA [id number] 09:31:49 15:36:51 Haroldo PRUITT 2019-12-10 2019-12-10 Outpatient MELBA MAY MDA MDA [id number] 09:31:21 09:31:21 Haroldo PRUITT 2019-12-10 2019-12-10 Outpatient MELBA GONZALEZ MDA [id number] 09:11:05 09:11:05 Haroldo apple 2019-12-10 2019-12-10 Outpatient MELBA MONTANEZ MDA MDA [id number] 00:00:00 00:00:00 AMARILYS apple 2019-12-08 2019-12-08 Outpatient MELBA MAY MDA MDA [id number] 06:55:55 06:55:55 Haroldo PRUITT 2019-12-08 2019-12-08 Outpatient MELBA MAY MDA MDA [id number] 00:00:00 00:00:00 Haroldo PRUITT n 2017-04-24 2017-04-24 [id number] . 18:23:00 18:23:00 [facility] Results Test Description Test Time Test Comments Results Result Comments Source Hematopathology Bone Marrow Differential 2020-03-04 15:44:00 Test Item Value Reference Range Interpretation Comme nts Method (test code = 9909) Smear Adequacy (test code = 9910) Satisfactory for evaluation Total cells counted (test code = 500 9867) BM Blast % (test code = 9868) 3.0 % 0-5 BM Progranulocyte % (test code = 2.0 % 2-8 9869) BM Myelocyte % (test code = 9870) 10.0 % 5-20 BM Metamyelocyte % (test code = 9871) 10.6 % 13-32 L BM Granulocyte % (test code = 9872) 35.0 % 7-30 H BM Eosinophil % (test code = 9873) 8.0 % 0-4 H BM Basophil % (test code = 9874) 0.4 % 0-1 BM Lymphocyte % (test code = 9875) 8.4 % 3-17 BM Plasma Cell % (test code = 9876) 1.6 % 0-2 BM Monocyte % (test code = 9877) 6.0 % 0-5 H BM Pronormoblast % (test code = 9879) 1.0 % 1-8 BM Normoblast % (test code = 9880) 14.0 % 7-32 BM M:E Ratio (test code = 9888) 5.0 3.0-4.0 H GUILLAUME (test code = GUILLAUME) DISCLAIMER Preliminary BM Diff may have been completed by a emergency medicine medical director and is subject to change. Any pathologist updates will be included on interpretation and appear in the final result. Please use caution in evaluating your patient based on preliminary results. Lab Interpretation (test code = Abnormal 31422-5) [place] [id number] 15:43:00 Test Item Value Reference Range Interpretation Comments Diagnosis (test code = 34) g8wzjXFsFZQesVZ5HCJ hLLCyr3fba2IioXPnhZ IaEDxznQRsuhFxfx30w PO3bV91IU7dSEMqNmT7 EZUvlfF4Fdq2GERpKFA qiNNjA072g3mar8xfda GafZC7jAmkDBIqFKbpH VxyaTFcbGluMVxwbGFp blxmczIwIEJvbmUgbWF nzs38JLVdh2E6UUQyi5 BngEzqLOOdY4Zwy0TeG IScx3ZzhOqsS8couTPn RFB1kY5xZTWjf6DfjeE 0ZSBzbWVhcnMsIGFuZC V3m2FwfDTxgeJtUJKep UywqklvbEWmNI6ggHAl OJ3znuq+OW4erjy+XH5 cflx+ZQ5teuKGGTFQGW MZYE7KYYYLBd5KXYYbP UhWWD2MY85EB3oVMRAc RPEZH3USCIOhNERjTRJ RZZWHPlRTSuTUC0ZLMb FURSBTTUVBUlMgKHNlZ GWlu28jAK78UU6jkEFk fQ== Comment (test code = 9835) u7dqvQMlGQBwyIN9YAZ tPEKho4giw8UahPCxmV FsJTaouQLvfzAjmx59l CJ3jJ96BZ5wRXLvStY6 FSBwnnX5Isk7UOJuTIS xbNQvR998o1lxt9uvha KrzVD1VXQmVZQ5TLsfy yBmdiJ1FBonzGCvLhA5 C41rtAFxEYzqmFNneln hqpSdMSYgS1JoYJJsRW BlciBjbGluaWNhbCBub 3RlcywgdGhlIHBhdGll zpKlsMSnKYZ9WpH1ldQ iENmlMSbxwQvmC19UQV wgYmVpbmcgdHJlYXRlZ MV2wASmIPA6ULZoeMyw kX9mOLPyJZDxTGNidfO yaWRpbmUuXHBhclxwYX VhkOyjXOEfCLgggV1mC YTiH6MwSCPeCHMxkpCc kFS2bR1dRZwmuKvaQV9 qvDdlJLI2MYU9tUD5OM Hvf6HxoBQnqYYpxsDxk 42tKL2gLIRfZw4gLVHw gGVdXPKgAJO8TWu4VQM ku30mMEQzcj4= Microscopic Description g4zvmNOkVUFfcVM6SOJ (test code = 9865) zIXGcd5clu5YqhOZrxK MwTQbbcYYnnrBhlv72a PY6jJ32EO8dXFLtKgD9 XZQbreA6Kgk6RGJwKOJ kkHRpR603d4mey4shye RefUY6NDZtEXFmE8AcY H3cRRFooLBaKNI5DSEs ZDIyOVxncmVlbjIyOVx kbXLgSuB1C32elGMeIC xsaTFccmkxXGxpbjFcc EjrdG3qYghhfwStOBBn QXoliVUlkOA3MjTLNGN ZZEsVArCVQCSWX30RAB x+E09CECQmqJSuOKRmE HIlEKwtoVVbdIG7ZYs+ XHBhciBSQkNzOiBcflx +HP4bdjt+XZ6izyk+XH 5cflx+JK3eXQXjtt0yp MMbEaeodm2mqS1nzKUt qYwwTVUvZW6mJFbti7h 0aCBtaWxkIGFuaXNvcG 6je3qpe4F0dH7dsZNcK HBhciBXQkNzOiBcflx+ EA5oepi+CN2jzmh+XH5 cflx+MGDgWGO1AOAwLX ejaWcbQHDaj6t5yKZsw P7xn7G2mD2zrECuDO2z HTIojdE9yHA9yO8tLOC sXSN1keFbeyBxk4Anoa 2rNKZnewIWqCB2VTbtn HM6IFx+QN1vwev+XH5c flx+ED0cVSmgn05gd0P 1mA9gOP9dQA4seTTnIF 7wdIZcQBKkE7JuNQIkJ 2JwYXQyIEJPTkUgTUFS Ys2FTNFFN6MjlRFlTUI aVUZsIAtdxNCphJA4TF x+TTOmwqYJtHWfrSL6D lx+MU6vtyq+WD7gnuw+ FZ9gthk+DO0hlrf+XH5 cflx+RP5ppxt+XH5cfl x+KJ5vLZAyzIWfaEBhP HBhciBDZWxsdWxhcml0 eTpcflx+JQ5sixe+XH5 cflx+TR0supe+XH5cfl x+IB0xowx+PR0yufJ1R TVwCO2pwna+LX2dxyHl flxwYXIgTWVnYWthcnl nA5u6QNG4VYo+XH5cfl x+JJ3pwkp+RH8aXWRjf XWxsAM2KBE5h8KxQNR0 zDLrVCghFLTgBG5veBq 7hyH5CUlyjzl+XH5cfl x+PA5sgzf+NE8pncq+X H5cflx+DZ8rfhx+XH5c flx+OE7bccVZe7UefCZ toqLyHhxwCC4ygVLaIW 2dfJTcVUMqR8QnQBUwI 2JwYXQyIEJPTkUgTUFS Sh3XGVMNYNHJTa5NN9E LOFGILaDDH8uzDRNdHy OtT8WvTPDnI0IbJEXvP W8uuNXfLMW3FCxslIb2 IFx+XA2ubyr+EK4wbze +OU0hoqg+LU2rbpy+XH 5cflx+ZH3xfjb+XH5cf lEjxoOSNZIcbKC9EM9g mHZuSEfjCB12pK4cdZS lczpcflx+ZD6bvno+XH 5cflx+AF1kzkh+XH5cf lx+IFNlcXVlbnRpYWwg lNV6tJEwyBjmebhqBHm pfNami5EjBs3nrOJcIH YmhBEzbu8twAUxotplf lx+NA2ltnj+HB6gnxp+ XZ1bgpm+PH1ukks+XH4 hN5NruJPmmYotyXFwZI J6jzW9oD5lLkGdhWFnu GFzdGljLlxwYXIgTWVn WQnrrnciS4a4VBX3VE2 cflx+RO4tbkp+XH5cfl x+RRYhH0RuBJCrZJ5jt OMfGVv9kIGxj6H0yOFh Olx+ED9afpg+OZ7ofuq +BL9meyv+QL1cpyh+XH 3nYl36ZFrfU6XkIIHrP C6cxWTvANTiOBTaVJZj ZJqbsoakZF9uypk+XH5 cflx+VW6wnxg+XH5cfl x+MU9mlkMNc4HepR6cx cUyk5TyMjkxTTKgQdyb b2WlDsBhnss+IP8avcs +YN9haen+RE0gqvi+XH 5cflx+SZ4yvvc+XH5cf lx+ZD9lklo+PV1rKw05 LIzqR2AuMQWaFZ2vxKS yfQ== Gross Description (test n3hegLUgEJOgk1omUMZ code = [id number]) jPdVsABXNh0veo252uX VwSRqoUhUbQgL9jEYqA BFjxZTvp0X0TZhpjOWn PoHEsdbhsTx2g7tvP8e vsx7zZM0oUtMiWFKfFQ QwXGZwcnEyIFRpbWVzI J6nbbTIt75qenc0x3fc TXhhwX1kZNVkTGPvpGT jt0T6GKpvmCFzIYKJf3 EpnMUeRK6nham2i4npT Wluu8goz6JrYkKzIEEi ZXQwXGZwcnEyIEFyaWF mKG8eqcHudoi1p2ekXQ PfEg5cJKEamvbdD2cvg cTnzKPrVcUlfJFnL356 oyaorwm5w9jiEJQtUq5 nhHpgC3fmbrTsdILqJc BycTIgVHJveSBNaWNyb fGyxST0xOmaYeUjXADr d29arjkuN3urxtAbdDV kEpHxtLDlF2svVo3yJ3 58XUOfQIbfj6dgp7CsN mNoYXJzZXQwXGZwcnEy NMGuG64kTRWJO903VIW kWEOmKKTdn9wtr8umA3 hhcnNldDBcZnBycTIgQ GXnIQr0iA6Ma2mzh4hb atDwkQA9VVQwLUTiU6C kSQ7zCKTvoGQvK9otTT DmBRnvqxQkdrG6ESLah DXxLIxsthFbZaExN0Kf II2bSBbkcGGwZkL9GZY fZNL4IJxgEMNuVJbzBm v9LPH8A7pdZBC2I1asq eGjjaPeLVSnhMC5Ptzu exMpClqrI2IyZX29AFl wbDZaWvt6WXSnHIg8CK omAHPuSCUuFqf9IXj2X 5opFMMkBUScY4TvJN4a HQVmTpv8CPDaDFfmwcX bBRZ6FLesMOQkCIB9BP TqbPWvGdq8MYEzYYT6L 5luvpUfkwW6O0ebrOSn EGMzT2drKYGyTZomL4U rEP7qZMfnNnk1XVW4GH rzwzWoMDu9EUtuYTTaE Ti5FOVtdEGhBgB0YSYa RGE0BDkaslCfgxZ2YTn xfPUcMHpmE8kxALLeYM jrK1RbGB3dHWpjZvo7Q TIwNztccmVkMjIzXGdy ZWVuMjIzXGJsdWUyMjM 7XHJlZDIzOVxncmVlbj YbQYawjUJiZwV2D1veS YQnNHTmA7KjJP2gQVDo Wei1XDR8JNfjpxRjTQb bijUscdUpFek2LCS7LH u0Auuzm0G5gNXlcFBrh HtcczEgaGVhZGluZyAx K113ARTdTYmrFIZfirn tVzv1j6ckSmPgQICvbO 5vKGR6oAjctsKkqGMoT IgnAdQ4E210QAO8PDwz YIRbwimnXWx7y2veXaB xOSYrdC7bSYI4hW4QHv biVFXvimeiSHt4LVhqK HXpyawfLjO6EAerIZPe sLb5GGatAVYlylG6Sii tYXJndDcyMFxtYXJnYj lzRJslTLUoPUS4QpNmI KBac1Xfvsw9KlYjJrYu ABKNRqbdyKRwCXM1CUN 0ZjFcZXBpYzkxMDFcYW 0xeNwiqOv5vWmkHFPmo hQ7qIUdMJurd9oqNCU6 j3hchmdeFTFeOUyyPz8 udHRibHtcZjAgQXJpYW y7wS75UCBbyE5lyYXkD Pi4HNNsceNowNlqcL0e ZnMyMCBCLiBJbGlhYyB DcmVzdCwgTGVmdCBQb3 N5XEMvp7PiVOCmt4Hnz BDbCCLvrRTbk9gpzvU2 YITtAsH6MVWpuLKiFDC dXEUctnMCpHHdqN6azp BpcyBlbnRpcmVseSBzd XInbNQ3FWKtbO0xPTOa bV3koa3wbNDlBSQxu8B vH1ZqoHNwtFRqoMKkG5 JccHJvdGVjdDAgXHBsY WluXGZzMjBccGFyfVxw UFS6Mm7= Disclaimer (test code = u1qqdPKlDIRcjVTyGeF 9844) gGXDgYCSlg5rdYMNefG FuZzEwMzNcZnRuYmpcd AShZWFcPxRhp3gif004 iUEdr0hkDFLqOrK9cJR iVRBprLKoD013AHSmAL xpp8imr4NlNYAukYBkc 1P3IHVHobwfrSi6vLkc X71jd6L6UaueV8fvIPU jAWGnG7DiTG9uBYBgEp y7AMI4FMN8ORQiPOSxX 2UiUC7sKPXnxCObOSp9 e5jgeHvlBWAcTML3j4v mAGylvmZiDU6qft2stQ o6n3ioypVxNCWjPQKhk YWWYSZiG8UinRhgIm3d iNl9uNquUanxDNC7Gsf 8FX5nwk00llf6sFqwDS NjgtozCyR8GUveOHEdp kqgEYn3DEteLMEmdYR7 DWOwjBCwQ4GiYOZtBX4 nlsv7QLU8CNigNQZnHs S9QJNjnERqRQStxDonZ Uzky594OFT2PsQhIT9w A7Twb4Q8cK8iiRHsVGC qyBBiNsEmZBQmfg3yjJ QpJVcij5UlVZR8yyM7f MIwqYWiJWLiFD46Whyu o1OwPafeYHP2SVXnrqH qs2Oee7fwIkBxzfEcG5 keI7UjLPOuDGYkHNZoD mEkjmLlt3Kfn1SgbOOe rFw8s0wuIIKjJPRtkTs sh2fqMHD5PCGfA9N3oQ Myy2mvXVafVWXbwLZ3w qY3TKJskCZzT8QztH9l OIEoWX8wqee4c8huUTV 3SMdeTMCnJoG0rsN3UX BcaGVhZGVyeTcyMFxmb 179RMI6PyBdQEMvc7Sy U0TfmAhvE45voIudZ48 eQOYerRvcxK9ibZhhqY 5cZjBcZnMyNFxxbFxwb YZxazmyWVdaxuP4PQxa kbalSUXpMAanT3neQaA bCPAdmMxeYZqgc9IeRE KfJOGhJrluzpG1YHKKl 53lKQZdq8LoTPTamR3q sIOyMSqnnsJadBQ2GEe hdmUgYmVlbiBkZXZlbG 2vPQAzDR9vAYApggVju s5ykmKpSOFzWNDjY2Az cmlzdGljcyBkZXRlcm1 eitCpXWF8DEGPGI0LZB ScWAUsp94oCKCgsPqtp X4zaZUvxdKkSQBrc8Ud tO2baADVXWPsO4fnQD7 xODtwl7AfqASwlMAojI T1XCPvs5AaVaYwoeWpo YIrmELhD0ChbGfkX7uo ANBjFWSwgoKzeSUvl8Q jFJJhxRQ0wUXkOE6LSd CFy39wZOZvERLVsnEwM ZCfsGeukQN0wzK3jS1h LiBJZiBhcHBsaWNhYmx cDWEvj231sb3epgT3TP JySPSikxens6KgNKWhX SUgqL12NEOfHLUmai3a dyzahHXwfyGcK0Sdchs 4eY3aDMQfVWwrZVNzCE ZzMjJcbGFuZzEwMzNca GljaFxmMVxkYmNoXGYx CBhmC8phRgWvFbGrDsp wYXJ9 MD DaoCytogenetics Specimen Collection -Bone [id number] 19:53:30 Test Item Value Reference Range Interpretation Comments Vinleydi Ruiz (test [id number] code = 91684) Cytogenetics Yes (Received) (test code = 8304) GUILLAUME (test code = GUILLAUME) Please schedule in the morning. Thank youPremedication type:->NoneAspiration laterality:->UnilateralP rocedure type:->AspirateProcedure type:->Clot MD King Interpretation Antibody Screen [id number] 16:54:16 Test Item Value Reference Range Interpretation Comments TMP Auto Neg At the present ABSC Interp time, patient (test code = plasma shows no ____TERE VASQUEZ 7535) evidence of RBC MARCI Denny alloantibodies. Joe ALICIA bre by: TERE ALICIA,Dictated Date/Time: 11:54 AM CDT Transcribed Ian e/Time: 03.03.2020 11:5 4 AM CDTElectronical ly Signed By: TERE PEPPER, on 03.03.2020 1 1:54 AM MD AndersonBone marrow [id number] 15:30:00Bhavik Armas NP 03/03/2020 1:32 PM Procedure: Bone marrow aspiration Date/Time: 03/03/2020 1:15 PMProvider Information:Performed by: Bhavik Armas NPAuthorized by: LISA Griffith Stummel Selector present: yesAssistant: Daiana DarlingMediilya applied research director used?: applied research director not needed Patient Diagnosis:Pre-procedure diagnosis: CMMLPost- procedure diagnosis: unchanged Indication:Indication: evaluation of disease status Anesthesia:Anesthesia: local infiltrationPatient anesthetized by: advanced practice providerLocal anesthetic: lidocaine 1% without epinephrineAnesthetic total (ml): 10 Sedation:Patient sedated?: patient not sedated Aspirate Site(s):Laterality: leftSite location: posterior iliac junaid tInstrument(s) used: Sathish needleInstruments placed by: advanced practice provider Dressing:Dressing: compression bandage Post-Procedure Patient Assessment:Patient tolerance: wellEstimated blood loss: minimalComplications/Observations: no complications Discharge/Disposition:Discharge instructions: verbalPatient discharged to: discharge to homeDisposition mode: ambulatory Sample Disposition:Testing performed: flow cytometry, cytogenetics and pathologyResearch samples(s): yesProtocol #: [id number] [place] Aspirate volume obtained (mL) - left: 19Visual assessment for specimen adequacy - left: particles Comments:The patient was positively identified by Name, MRN, and . Laboratory values were reviewed and platelet count was 36 K and adequate for the procedure. tolerated the procedure well. Applied pressure to the site until homeostasis achieved. Patient was instructed to keep the bandage on and dry for 24 hours after the procedure and verbalized clear understanding. No complications were observed immediately after the procedure.MD [id number] 14:24:02 Test Item Value Reference Range Interpretation Comments ABORh. (test code = 882-1) A POS MD DaoClkamala Expiration [id number] 14:23:59 Test Item Value Reference Range Interpretation Comments T & S Expiration (test code = 03/06/2020 5318) MD DaoAntibody [id number] 14:23:38 Test Item Value Reference Range Interpretation Comments ABSC. (test code = 890-4) Negative ABSC MD AndersonFractionated [id number] 13:10:10 Test Item Value Reference Range Interpretation Comments Bili Total (test 0.4 mg/dL <=1.2 Indocyanine Green code = 5096) (ICG) may cause falsely elevate d bilirubin resul ts. Total and direc t bilirubin must not be measured from s amples containing indo cyanine green. False el evation of total biliru bin can be seen in kenn ents with IgG concentrations above 28 g/L. Bili Direct <0.2 <=0.3 mg/dL Indocyanine Gre en (test code = (ICG) may cause 5094) falsely elevate d bilirubin resul ts. Total and direc t bilirubin must not be measured from s amples containing indo cyanine green. Bili Indirect See Note 0-0.9 Unable to calc ulate (test code = Indirect Biliru bin 5095) result due to s ome parameters are outside reportable rang e GUILLAUME (test code = Components: GUILLAUME) Albumin, Alkaline Phosphatase, ALT, AST, Total Bilirubin, Calcium, Chloride, CO2 (bicarbonate), Serum Creatinine, Glucose, Potassium, Total Protein, Sodium, Urea nitrogen (BUN). MD DaoUric [id number] 13:10:09 Test Item Value Reference Range Interpretation Comments Uric Acid (test code = 7955) 6.9 mg/dL 3.4-7 MD DaoTotal [id number] 13:10:08 Test Item Value Reference Range Interpretation Comments Total Protein (test 7.1 g/dL 6.4-8.3 code = 7649) GUILLAUME (test code = GUILLAUME) Components: Albumin, Alkaline Phosphatase, ALT, AST, Total Bilirubin, Calcium, Chloride, CO2 (bicarbonate), Serum Creatinine, Glucose, Potassium, Total Protein, Sodium, Urea nitrogen (BUN). MD DaoPhosphorus [id number] 13:10:07 Test Item Value Reference Range Interpretation Comments Phosphorus (test code = 6817) 3.8 mg/dL 2.5-4.5 MD [id number] 13:10:05 Test Item Value Reference Range Interpretation Comments GGT (test code = 5647) 13 U/L 8-61 MD DaoGlomerular Filtration [id number] 13:10:04 Test Item Value Reference Range Interpretation Comments eGFR-AA (test 76 >=60 mL/min/1.73 Normal eGF R: >= 60 code = 8062) sq. m mL/min/1.73 m2N ote: The eGFR is ilya culated using the CKD-E PI equation. The e GFR declines with a ge. eGFR <60 mL/min /1.73 m2 is considere d as "decreased". Th is equation should only be used for pat ients 18 and older. According to th e [employer]'s dney Disease Outcome Quality Initiat fatuma (KDOQI) classif ication and 2012 Kidney Disease Improvi ng Global Outcomes (KDIGO) Clinica l Practice Guidel ine, the stage of CK D should be categ orized based on estima bre GFR. Stage Desc ription GFR mL/mi n/1.73 m21 Normal or h igh GFR >=902 Mildly decreased GFR 60-893a M ildly to moderately decreased GFR 45-593b Moderat marybeth to severely decrea sed GFR 30-444 Ena rely decreased GFR 15-295 Kidney f ailure <15 eGFR-OWEN 66 >=60 mL/min/1.73 Normal eGFR : >= 60 (test code = sq. m mL/min/1.73 m2N ote: 8063) The eGFR is ilya culated using the CKD-E PI equation. The e GFR declines with a ge. eGFR <60 mL/min /1.73 m2 is considere d as "decreased". Th is equation should only be used for pat ients 18 and older. According to th e [employer]'s dn Disease Outcome Quality Initiat fatuma (KDOQI) classif ication and 2012 Kidney Disease Improvi ng Global Outcomes (KDIGO) Clinica l Practice Guidel ine, the stage of CK D should be categ orized based on estima bre GFR. Stage Desc ription GFR mL/mi n/1.73 m21 Normal or h igh GFR >=902 Mildly decreased GFR 60-893a M ildly to moderately decreased GFR 45-593b Moderat marybeth to severely decrea sed GFR 30-444 Ena rely decreased GFR 15-295 Kidney f ailure <15 GUILLAUME (test Components: code = GUILLAUME) Albumin, Alkaline Phosphatase, ALT, AST, Total Bilirubin, Calcium, Chloride, CO2 (bicarbonate), Serum Creatinine, Glucose, Potassium, Total Protein, Sodium, Urea nitrogen (BUN). MD DaoCalcium [id number] 13:10:03 Test Item Value Reference Range Interpretation Comments Calcium Lvl (test code 9.6 mg/dL 8.4-10.2 = 5258) GUILLAUME (test code = GUILLAUME) Components: Albumin, Alkaline Phosphatase, ALT, AST, Total Bilirubin, Calcium, Chloride, CO2 (bicarbonate), Serum Creatinine, Glucose, Potassium, Total Protein, Sodium, Urea nitrogen (BUN). MD DaoMagnesium [id number] 13:10:02 Test Item Value Reference Range Interpretation Comments Magnesium (test code = 6359) 2.3 mg/dL 1.6-2.6 MD [id number] 13:10:01 Test Item Value Reference Range Interpretation Comments ALT (test code = 11 U/L <=41 4705) GUILLAUME (test code = GUILLAUME) Components: Albumin, Alkaline Phosphatase, ALT, AST, Total Bilirubin, Calcium, Chloride, CO2 (bicarbonate), Serum Creatinine, Glucose, Potassium, Total Protein, Sodium, Urea nitrogen (BUN). MD [id number] 13:10:00 Test Item Value Reference Range Interpretation Comments LDH (test code = 172 U/L 135-225 Results gre ater than 1651 6111) U/L may not be reliable due to matrix effec t with extended diluti on as it exceeds the man ufacturer s recommended l imit. Caution should be exercised when interpreti ng such values and done in conjunction wit h clinical context. MD [id number] 13:09:58 Test Item Value Reference Range Interpretation Comments BUN (test code = 15 mg/dL 6-23 5055) GUILLAUME (test code = GUILLAUME) Components: Albumin, Alkaline Phosphatase, ALT, AST, Total Bilirubin, Calcium, Chloride, CO2 (bicarbonate), Serum Creatinine, Glucose, Potassium, Total Protein, Sodium, Urea nitrogen (BUN). MD DaoAlkaline [id number] 13:09:57 Test Item Value Reference Range Interpretation Comments Alk Phos (test code = 64 U/L 40-129 4768) GUILLAUME (test code = GUILLAUME) Components: Albumin, Alkaline Phosphatase, ALT, AST, Total Bilirubin, Calcium, Chloride, CO2 (bicarbonate), Serum Creatinine, Glucose, Potassium, Total Protein, Sodium, Urea nitrogen (BUN). MD DaoGlucose [id number] 13:09:56 Test Item Value Reference Range Interpretation Comments Glucose Level 98 mg/dL 70-99 Reference rang e is (test code = valid for fasti ng 5699) specimens only. Guidelines established by the [place] [employer] guidelines (Standards of Medical Care in Diabetes 2016. Diabetes Care 2 016; 39: S13-22) are that a fasting gluco se of greater than or equal to 126 mg /dL or a random glu cose greater than or equal to 200 mg /dL with symptoms, that are confirmed b y repeat testing on a different day, meet the criteria fo r diabetes mellit us. GUILLAUME (test code = Components: GUILLAUME) Albumin, Alkaline Phosphatase, ALT, AST, Total Bilirubin, Calcium, Chloride, CO2 (bicarbonate), Serum Creatinine, Glucose, Potassium, Total Protein, Sodium, Urea nitrogen (BUN). MD DaoAlbumin Byfwn1166-20-67 13:09:55 Test Item Value Reference Range Interpretation Comments Albumin Lvl (test code 4.4 3.5- 5.2 gm/dL = 4763) GUILLAUME (test code = GUILLAUME) Components: Albumin, Alkaline Phosphatase, ALT, AST, Total Bilirubin, Calcium, Chloride, CO2 (bicarbonate), Serum Creatinine, Glucose, Potassium, Total Protein, Sodium, Urea nitrogen (BUN). MD DaoAspartate Wvqephotxgoiunwf4416-03-14 13:09:54 Test Item Value Reference Range Interpretation Comments AST (test code = 20 U/L <=40 4731) GUILLAUME (test code = GUILLAUME) Components: Albumin, Alkaline Phosphatase, ALT, AST, Total Bilirubin, Calcium, Chloride, CO2 (bicarbonate), Serum Creatinine, Glucose, Potassium, Total Protein, Sodium, Urea nitrogen (BUN). MD DaoElectrolyte Byiet0266-58-63 13:09:53 Test Item Value Reference Range Interpretation Comments Sodium Lvl (test code = 135 136- 145 mEq/L L 7355) Potassium Lvl (test code = 3.9 3.5- 5.1 mEq/L 6854) Chloride (test code = 102 98- 107 mEq/L 5279) CO2 (test code = 5227) 23 22- 29 mEq/L Anion Gap (test code = 10 4- 14 mEq/L 9329) GUILLAUME (test code = GUILLAUME) Components: Albumin, Alkaline Phosphatase, ALT, AST, Total Bilirubin, Calcium, Chloride, CO2 (bicarbonate), Serum Creatinine, Glucose, Potassium, Total Protein, Sodium, Urea nitrogen (BUN). Lab Interpretation (test Abnormal code = 95767-5) MD Dao.Serum Qplblwwtjl1094-87-45 13:09:52 Test Item Value Reference Range Interpretation Comments Creatinine (test code = 1.11 mg/dL 0.67-1.17 5399) GUILLAUME (test code = GUILLAUME) Components: Albumin, Alkaline Phosphatase, ALT, AST, Total Bilirubin, Calcium, Chloride, CO2 (bicarbonate), Serum Creatinine, Glucose, Potassium, Total Protein, Sodium, Urea nitrogen (BUN). MD DaoUrinalysis with Oawwaswocxp4692-24-25 12:47:50 Test Item Value Reference Range Interpretation Comments UA WBC (test code = <1 0- 2 /HPF 7904) UA RBC (test code = 2 0- 2 /HPF 7891) UA Mucous (test NOT SEEN TRACE /HPF code = 7887) UA Bacteria (test NOT SEEN NOT SEEN /HPF code = 7870) UA Squam Epi (test NOT SEEN OCC /HPF code = 7896) GUILLAUME (test code = Some reporting parameters GUILLAUME) within the Urinalysis test have changed due to the implementation of new instrumentation in the [facility] [place] [facility], allowing greater sensitivity of measurement. Urinalysis results reported by the [facility] using existing instrumentation, as well as Urinalysis testing performed manually or by backup methodology at the [facility] [place] [facility] will remain relatively unchanged. New reporting parameters and units will now be reported for all campuses. MD DaoUrinalysis w/Microscopic if Mvrlywjbe8633-32-80 12:44:09 Test Item Value Reference Range Interpretation Comments UA Color (test code = 7877) Yellow Yellow UA Appear (test code = 7868) Clear Clear UA Glucose (test code = 7881) NEG NEG mg/dL UA Bili (test code = 7871) NEG NEG UA Ketones (test code = 7884) NEG NEG mg/dL UA Spec Grav (test code = 7894) 1.009 1.002-1.035 UA Blood (test code = 7872) Small NEG A UA pH (test code = 7909) 6.0 4.5-8.0 UA Protein (test code = 7890) NEG NEG mg/dL UA Urobilinogen (test code = 7903) NEG NEG UA Nitrite (test code = 7888) NEG NEG UA Leuk Est (test code = 7886) NEG NEG Lab Interpretation (test code = Abnormal 22852-2) MD DaoYvpagpqaGcxhywynreuk0578-15-82 12:43:19 Test Item Value Reference Range Interpretation Comments Neutrophil % (test code = 65.7 % 42-66 77237-4) Lymphocyte % (test code = 15.3 % 24-44 L 737-7) Monocyte % (test code = 13.2 % 2-7 H 744-3) Eosinophil % (test code = 5.1 % 1-4 H 713-8) Basophil % (test code = 0.2 % 0-1 707-0) IGRE % (test code = 0.5 % 0-0.4 H IGRE % c ount 79836-8) includes Metamyelocytes, Myelocytes, and Promyelocytes. Neutrophil Abs (test code 4.12 K/uL 1.7-7.3 = 753-4) Lymphocyte Abs (test code 0.96 K/uL 1-4.8 L = 732-8) Monocyte Abs (test code = 0.83 K/uL 0.08-0.7 H 743-5) Eosinophil Abs (test code 0.32 K/uL 0.04-0.4 = 712-0) Basophil Abs (test code = 0.01 K/uL 0-0.1 705-4) IG Abs (test code = 0.03 K/uL 0-0.04 51877-3) Lab Interpretation (test Abnormal code = 71791-3) MD Dao.FFP2453-85-10 12:43:14 Test Item Value Reference Range Interpretation Comments WBC (test code = 6.3 K/uL 4-11 6690-2) RBC (test code = 789-8) 3.14 4.50- 6.00 M/uL L Hgb (test code = 718-7) 10.5 14.0- 18.0 gm/dL L Hct (test code = 32.9 % 40-54 L 4544-3) MPV (test code = 787-2) 9.9 fL 4-10.4 H MCH (test code = 785-6) 33.4 pg 27-31 H MCHC (test code = 31.9 31.0- 36.0 gm/dL 786-4) RDW-SD (test code = 60.6 fL 35.1-46.3 H 60042-0) RDW-CV (test code = 15.6 % 12-15.5 H 788-0) Platelet count (test 36 K/uL 140-440 L code = 777-3) INRBC (test code = 0.0 % <=0.0 The INRBC (instrument 5974) NRBC) value ref lects the enumeration of nucleated red b lood cells contained in a 200uL sampleof whole blood analyzed by the instrument. Thi s value maydiffer from the NRBC value reported in a m anual differential,wh ich is based on a 100 cell differential. Lab Interpretation Abnormal (test code = 13846-3) MD DaoPeripheral Smear for Bone Aryizy1301-03-50 12:43:13 Test Item Value Reference Range Interpretation Comments Peripheral Smear (test code = 4273) PSMEAR MD DaoGlucose, Exrlob3224-38-34 16:12:20 Test Item Value Reference Range Interpretation Comments Glucose Random 104 mg/dL 70-199 Effective 2 12/16, (test code = the glucose 9360) reference inter vals have been updat ed based on [place] Diabetes Associ ation guidelines (Standards of Medical Care in Diabetes 2016. Diabetes Care 2 016; 39: S13-S22).Fa sting blood glucose:Normal: 70 99 mg/dLImpaire d fasting glucose (increased risk for diabetes or pre-diabetes): 100 125 mg/dLDiabet es mellitus: >/=1 26 mg/dL Random bl ood glucose:Normal: 70 199 mg/dLNote: Random glucose >100 mg/dL is associ ated with increased risk for diabetes GUILLAUME (test code = Please schedule GUILLAUME) every Saturday/ starting 6Schedule in Fast Track MD DaoGeneral [facility] Add-On Zxmj3556-83-11 00:17:18 Test Item Value Reference Range Interpretation Comments Ordered (test code = 6568) Test Added Test Needed (test code = 7604) GGT MD DaoPathology Outside Uzjgqtveakiwer8871-13-48 15:40:00 Test Item Value Reference Range Interpretation Comments Materials Received (test y5qdqIZdKTJllPVeMeYd code = 9973) WLMsIIWsz6uwDFQgkHRg ZzEwMzNcZnRuYmpcdWMx KSIpMkUpy1wnl373zFCx l3ibJDDfWsT3lZMkTZEp eNScU558IZWzGKdzs1il p6KbCGShrAIdi8F2AWYS xrvojKh7cIrpH68xq7O6 UsrdB5cbIDXbKYMaB6Cb SC3qGNTtHmt4TWS7LLK4 VHDrVJVyE7UxDO2jBNJl wQLbPMh8x1pblOntIDSq GMY9b7ucBDsnuyPwHR7h ub9syRd8n2dasrChAKIv UCRijHHGVHPnL0OiuTvu Xv3fpBd4kGxiVanjWTV8 Izt9BT9nqk12nrt2gDic JWGjrcswSwE5PQcdTXGj ligjUGo3SUelHDJriYxq MFxtYXJncjcyMFxtYXJn mAN2UWGdbACdO7HdXWNp QPdyRWYevpy0WuKnTr5s tDUasJzdOYapt2hqk6sv gIYeYdz3BRDyIqHsTyls KUzki4Kxk1lrGFGmur5s SKK0kIKijKrlk7K8dHCi YBUdnUNhsmPqBMVjao54 nRRwrLWzgDIprt1mrlMw eDPccHLiHLI0rUOqmmPq GIXbdVIcTQWsBB8icUVf ZDWquY2xdvlkYYZtPzIo ailnUSUtlQrdrbXvIt0x hPwgSZT0FVtfD5elsB6p EeZ8FTohW0vzkG2dAIs0 URxmlBC5JXSgoU6kZB0h eogrz2cwYrAbQV0gifzc g9zzXbHuHI6txaf3v2he JUK3PTzaXFOcViY3rpR6 NDBcaGVhZGVyeTcyMFxm x365DQJ0HiGyVYRkg3Ud G1OxtHacZ09xxWicZ11q IYIoqInokS3heEhyoP2l AxAiEiNzGMt8nm16GXc6 ddyjxCpzAPi5xuRkEWMq MOQ8NZZxbOUqVORnZ8a8 piCwOSFaBGD1RQSmgLLv TREjD5u9wnQsUTA8AMg7 cnBhZGRmdDNcdHJwYWRk YjBcdHJwYWRkZmIzXHRy bULnjMWisQEeyT3fnCjt JJSkdYUsaQ5nPZE3HOUi cmgzMjBcdHJoZHJcbHRy hc92JDThybOjcXBbdKfo nIRsGCF1SILwZSZuXNGk GLP1KSApQuVrgaJoJWby bGJyZHJiXGJyZHJzXGJy FSM9UPSkLlNjvgYeGRvu bGJyZHJsXGJyZHJzXGJy POZ4BOJoZbHxmwUbIMhj bGJyZHJyXGJyZHJzXGJy ZZT0NPBfOtRbynRyANus bHBhZHQxMFxjbHBhZGZ0 K0alcZFxEWRwCVmzcOBg XXXjL0tapMRnIFxuJJNb cGFkZmwzXGNscGFkYjBc D9tnBJIsEcZxF2QpqDe1 MDAwXGNsdmVydGFsdFxj qXMuVDE1ZFEzOVOiHKDb AFY7IGBvAnCdkfTjOGml bGJyZHJiXGJyZHJzXGJy XGN5HVDnGoVqoaEiVNqd bGJyZHJsXGJyZHJzXGJy TEZ8IKQyBaBlxsKyIVwz bGJyZHJyXGJyZHJzXGJy XVT7QIAoIsOeogYxOKbs bHBhZHQxMFxjbHBhZGZ0 H4dhgQRjMVAaACfvmMIb EGFrE0yqbNBwVDzhYDQk cGFkZmwzXGNscGFkYjBc R1cbKWEmJcFhP1ZmeJa0 NjAwXGNsdmVydGFsdFxj vIEnUOA0WXXdWSAmHZNj WKJ5BGUpYsOmnxUfQTsg bGJyZHJiXGJyZHJzXGJy ZSC2QATmWpYrqkYoCUkv bGJyZHJsXGJyZHJzXGJy HWB9BNQsPqErisVzYVyo bGJyZHJyXGJyZHJzXGJy MMD0JUHnMeKuhyGwVAbb bHBhZHQxMFxjbHBhZGZ0 U0hxjGNdIWStYWhxxGIz TIOpS7sksKPkAByyDFXe cGFkZmwzXGNscGFkYjBc Y2vpMRQzEcIyM7CnrQa6 LuCjGWCezaPvkR99Wzoj g9RhXWBoYEP4THksUVph bFxwbGFpblxmMVxmczIw CDfcuanhQPRmYDunC1bb ApZnRRLcmPngOImdb5Ef XGYxXGNmMlxmczIwXGIg MEXlDMTvsB6sHzbcT7Um gX5uYNlsFdywE8jeKSTx o3GmeL3vRDlrePVqrufi MVxmczIwXGxhbmcxMDMz UVmrT1zkPlUpOFBfcLkx FIngu7ZjJRLhCDZwNiwi fhDnLRc6meDaCNZvoBhi fCPkYUytzzRrnWeee5Yt nlDkfVeyFRLcFOn5ivRs hbmhcBs9dZQnxCmeIGHu cDlahA7aOlZvFnWvNNku bGFpblxmMVxmczIwXGxh isiwYZTnUVwzD5fmAhDd CYQebTmmSGzub4TdLITj QYSwVagxueOvFMAqU65m bGVjdGVkXHBsYWluXGYx XGZzMjBcbGFuZzEwMzNc aGljaFxmMVxkYmNoXGYx HGmfZ1etRgLwU4HtJMIs CeTdxVMnL5jlL2KlrLgo YXJkXGludGJsXHNzcGFy XMT0yWSllwSvjXIcgMBt HGWqYBapALZ1rDVmzkva oYAadatoKOiuovC9LXZt YWluXGYxXGZzMjBcbGFu ZzEwMzNcaGljaFxmMVxk MjExPCIeXCncB2moQnQh V3PfOHJyToEzDcRIRLSv aXZlZFxwbGFpblxmMVxm czIwXGxhbmcxMDMzXGhp Q0uhYlZtXEQpkJgrJNaf r2OlJPFbGWFcVymtawOz WHl8jaOyIBVhvUllbU96 Yrgilq03LKIpa7ihDEHc L3YupRKmDRNcrVJnCGej MDhcdHJwYWRkZmwzXHRy cGFkZHIxMDhcdHJwYWRk ZnIzXHRycGFkZHQwXHRy oOSbPHL5B6d4beLmMHLf DVa8vhHbFZBrHxSqsQVp ZYX2QRd1MrnxtrA9eKSo Q6p3FfvyjcIrZQpxzUJk cq59FERireUmvXOqyInm uHAdCLB9HKSyWINsGGAu KKY8RVQtErTysuLfMYsh bGJyZHJiXGJyZHJzXGJy PUP7QNJfQmEwtuUuSCcg bGJyZHJsXGJyZHJzXGJy JVG3MWGcCmUbamGgFWjz bGJyZHJyXGJyZHJzXGJy CTY9QTCcTuLgaxClKAhs bHBhZHQxMFxjbHBhZGZ0 N1yoxYPyTSZcKHyfbZKh UNShN3ppoEJtTHjlGIWg cGFkZmwzXGNscGFkYjBc M3agAOIfTzRoI7PvnSb5 MDAwXGNsdmVydGFsdFxj mLYgBSS6SMXoVYOqHDSc CJL5JFLeToAjetUjPCyr bGJyZHJiXGJyZHJzXGJy ARR1RSJgWiDqffLiSZsx bGJyZHJsXGJyZHJzXGJy CWG1RFLdSpWyebOzPUvj bGJyZHJyXGJyZHJzXGJy ABF0EWAhFxUbyaEtHChy bHBhZHQxMFxjbHBhZGZ0 Q9yhlVAvRYJxTElpmRDa BTUuU2efwKHnFWqfOGJv cGFkZmwzXGNscGFkYjBc J7nzPRSbHyObG9GffAm2 NjAwXGNsdmVydGFsdFxj mCSgAIF6QQBqBAZzWZQh TLO7KIIdDoYcnmWiMYyt bGJyZHJiXGJyZHJzXGJy FFW5IYJpYeUaclOiCAgu bGJyZHJsXGJyZHJzXGJy KZD6NKFrDbIqejNqVEzf bGJyZHJyXGJyZHJzXGJy CGW0JUOxBgZjjoVbDSoo bHBhZHQxMFxjbHBhZGZ0 Y3iksZRrLELeWUhseTHz OQTdM7zfgISkRSlwFDQi cGFkZmwzXGNscGFkYjBc D4pkYAYkLfVkN3HmoKp9 CcZpSVUfuwNcsC40Mphb b3ByVYNeDKP3PMmyWFdb bFxwbGFpblxmMFxmczI0 XHBsYWluXGYxXGZzMjBc bGFuZzEwMzNcaGljaFxm PArzWhCgWLCbRHszQ0vd NjLaV5PzSGIxEfMmEE7x QCSvGH8eESO4RXYvXbEt S6FfAWFAQJ2YB6EdCWZB S6BafFlstA0zKuNdPaRq ZGqjOB8qDPKrC7zxoGPt ZJWjQGFmK6hkAbEgaD6w aFxmMVxjZjJcZnMyMFxs dHJjaFxjZWxsXHBhcmRc kB09Uzbpw6CuAQAwUAU1 MFxzMFxxbFxwbGFpblxm POluajZ7PGIqOGweKZTw XGZzMjBcbGFuZzEwMzNc aGljaFxmMVxkYmNoXGYx OGyhU6lxRpZsK3SzICWt ArTnSu77JoKtXaIhyNrm uT3bJjRdWfSbQLwqJG2m XZUaH4wboYZmPDTrBHMp V7ivLaHejV6qzUxpBEdd ZjJcZnMyMFxsdHJjaFxj LFoeFIVlwjHdtQ47Jaxi w9VmWTFvPON6OVypIDbb bFxwbGFpblxmMFxmczI0 XHBsYWluXGYxXGZzMjBc bGFuZzEwMzNcaGljaFxm TVkxReXjPUFkGJumW4cw OyKuD1JaQSBxHbKvYl7n KZ7oOWIeZLMuXVqnFTLd XGZzMjBcbGFuZzEwMzNc aGljaFxmMVxkYmNoXGYx TAojF9dsNeUzX0QfSMJx ZkGlnVEyU6lwK2VghWsv voTmxXkgr4wfbYJaVTrf h5CcqlNopPayIBWuLISj XHBsYWluXGYwXGZzMjRc nXxojA4bGuRdAyWaSVlx JO8bYPCxB0orsBKnEOOj INQaZ6kwNgOteA8pnNzh MVxmczIwXHBhcn0= Diagnosis (test code = j8umpUJsYPEluEN0LHWv 34) BLPin0dlq5HsuKKcoYBk JKsimBMpfuOgmh77bRY5 tH29VB0gOSPqGgU5RHFw zaC9Uny0MJDdDSAptGYo N589i9iwv6bjexFruSG6 nSibBXTiURP0NgTnSMW6 YIN4HTx8eAQaQnPolPzj PArvVPV6RaUnKGm6oMWx BsYvwUy4SYVqWMN6GLj2 LKx6aVC1CUNtxRt1NmPm FKP7WvdpNXn2iVu3FPOe qHk2XaCbCAS8SNDgYTMj dJoqzP6wLoByGVqcYMAl Ut5gIQPtOVVpj3jfBZTc w0SvmXjzC1qrnSEsWJE9 jZ4xCGKyt0TjbtX0VEGr zRRpyiYrGL3rSDQiuDJk IGltcHJpbnQgKEFEMjAt ZqViNCCjWJF2GgXsEnEj RDp0JZZffdrfGLBzwFm7 MeXbbLphPzOrIWYPDv2J OGFuJOgQED9QQ68BM0lH TYNwYAHJJ0BRNITgQsVu WVSwPPZlJPYASVHMW4gf YXJccGFyZFxmMFxwYXJc cGFyfQ== Comment (test code = w9jmkCQfHLNabWV4WAIu 9835) DWFro3mvo2RcwVXzoIOv QBmydMSymuOjug62jJX8 iE79GQ4sOQYiCsL2OIBq iyW9Vqw2KKSpDCTlaZHy D525s8kyy3fxcsQzqNI9 fVxwYXJkXHBsYWluXGZz MjAgRnJvbSBvdXRzaWRl HRHkAN6pCZQdZD9tfN7c icJbQSO4zPTryQA3fRFv tRSxDDVwlBUia3ubyVAr nTOpb76eM5l7x6Nnit9q cGFyXGYwXHBhciBQZXJp pXhywhQfVIPho77jLPWo VZSgROTfz6ivIFuddSlb Z8d7b4FvlhR6aVNfTAro T2CwGVVjJYXirkMkeXte S5d6MKQfTF7iIL7fxa1o wLDwxy1yKAKgfobqKRLi Xk2jLHVsUYFor6rcU52z DGRfeH8bj2zcJT9zEMCw o0Qvv1BwfKhmcdDas9qo lvAkKTl4yFHtK5HoqHVt DNSxUWaaRTmfoLEddg79 IHdpdGggdHJpbGluZWFn XLOoFE6upM4wb7kly9ov BcBFNNmbn6UboV0lcDjk yzPjdqVmlRRem4NvoGX2 eLWiEWCkIQZ4ECUrQHLg oHCdiR6lCVMfZZTze5Nq dz9rYF3dsK6pp0CjoQ7e JRBmm5eqWP96CJWnbHLn oKIeyOdqgPwrZ6x2IOLy RhjwI5LsEU5hEP43xT3K MYOaDDsuI9wykPtszITt uQ1monCss9DoOY7vY5Kr KNY3u4U1gODiIVNoWBXz x00hUAHzLSFgpBBixUyd xRcpq9zsAtD3AMDcBOYh jZhnHTQZAGjzD4cbyHnd jQErC6NjzpGfc9R4jMCy BGT8mDbanAAqudIrmZWy HO7pfF3eaaQtJWCtwFvq R6M1JULxuKjzmHscrDYu RLWgxLF9JXBdMT5zEDVm jJXacr4eAMYuHAxkjv7u MKRblaQkzXInalDqfM88 rrLhpqZltKokpIRxH5Ex cFWvzp3pPZOpmA1dfEUb r41oCMRitNunwZsiteIw dDRwldBzpQ74umRuzcQa aVpsqMDyL5MfpIKuCGPn H0GeeR8oOwrmez2rhMCe IFxwYXJccGFyIEJvbmUg dSRrwr31EBUtCARfgvWm rV49HX34VWabhNLlG4Oq eDOxGOPlFPVraJI6kWTe bXnbeB3xbgLlo3NxGOwz uJwweTEpS3Giv3AlbnXz vKN1iVAkcFpwbm3zORT6 dYfzd5ivALSwmPnkXZZl VVZjOLtxrNp1UQt5NCHa X2TpWHJxSW8rWNEfAQpb hiaxC2r6WWUoFSCxFTMn MHK8NNIvPOQlalNpg66x OHSjusRvhRnmz3wkPmF5 TZIuERLbAYU9vdJekkKy VI22ZBUoOoP6o1QlxHIy DBlexh4nxDDsWUVquaHU WKJza9E2r2dfDTIjQMQu t0fuE3enkoXiq0V5VpGi d716YV05eI4zADceN4u9 l0okwmL9zRRpo7U7IKuu j2kuj1EdMIPovp6crDDe ZT1emEXrc9BdsW41fDRa ZgFBGNMRVFTaz9xiXIVb lhJtIz2pgt5xzCa1cZSy AI0gGZSuUQQUJM84BDB9 tVylF5XGGAygSMCTMG4V T8AkBJIcyZxtv2YmMzSk HgEua1arM8NlOMRra1C7 XPmzk4wrs4CyDR3aM5A2 pNGrRTOkn8WiiNEzOl5v URcMCdGlJkMkW1VpULJC TFIsIGFuZCBNUEwuIFxw YXJ9 Disclaimer (test code = n3layVAgJOBgfEThQwSz 9844) YDHzJYNox3ylLHNiiRPr ZzEwMzNcZnRuYmpcdWMx ZIUcXfLmd0leu068bGJv w8meZBDwAzJ6lKYlFGGj yNVrQ598ETBpPZbve9hv g5DcADGahSKha0A9RDIV anmfhDk7oLgtG15gc8K6 RaykV9loFQLrOGHmI9Bn OR7rSBIoZha4JJV2VBD6 HFHoDFZcW8NnBS7wUCXj vBWaKUk5b6cvzOjrZULb OAM3z3fnPHtozzIrCI4c xi8xbKm5b3iltcMjCXKo PWLqmJIRGGLlB5TkeLzl Og4hzRu8tFalEjywMXX1 Jpf5HN6yyf58swj6lJax LZGgcwegYlM1ISzqUHLn tenvQVf3JOixSAAtiDY9 HRJiuWOvA4FrIGRvHM6g kir0BGX9DJvzJMJwRtO0 NDBcaGVhZGVyeTcyMFxm z053OEX6OtUkCM3mO7Qo f4Z6rJ5tyLWlICPggWRx VvYjKWArxj4ffLUvLAgz g2ZcDWJ5ghW5kPRwtKVr FFWvMJ85Qidpo5LrBubq WLY9SVObbjFsi7Krr4tc QvDrxjFrY8bqQ3ZlKXEj CXGnLYCiCnZsqxZal1Ib c4BgtJQtwQp4o4pjIQPm ALLuuOduq0bkPPZ5SVRa A3U2pQWdr3ytIYqbBZYy bUI0meQ0TVSbvFCaC6Fi sO6wMYPlAT1lslj0s8kw GWS4PYvtHLYvKaJ3azV7 NDBcaGVhZGVyeTcyMFxm o110HJS1FpEfKDNtu5Xf L3OvfJszW40fkIadI03x RWZeeKxohL9jkDbiwE3s ZjBcZnMyNFxxbFxwbGFp duyoZZfbbuR0ATlhioqe TXOjUCqwZ9xmPoRxRWWj vNozRFjza2ZeYVKvHXUr LpdwfiB4FLBIt63dTVWw n5QaVQEjaU1utJDnFKtf beUhbHG0ARhlqkByTjKw kbPyPMWruZ7qKSLkGJ7a ZEVjxrWbkl8jvaJePODs FLQiZ6MhsgzbfWqrxcDz IWRyie8onrDhCEM9XNWF LT7NWWXdXHPyp94aREKk fAdacT2cwDTefdYbEMZx q9HbsD5efGXGIGNoA1yk EA1xQHqjk1OydZXdkRJr cRA8OWZvs0GtThBczsRx yUYpbYEoN9IahGvnV4zw UCDjKOGnjpMsmJSwu5Fw GFPryXA6vBEzMV2BAtET s33cFSDwWTDMkvGfUFJh oYtbaNN6lxV8vJ2gHxXR ZiBhcHBsaWNhYmxlLCBj h080cx5mjwZ6XLNoKXQj rnvyf6PdBLHwDMTniD37 XPUuVYMtyc6wbcxqpSMr ftJuD3Tfykl6qX5dXYFb YWluXGYxXGZzMjJcbGFu ZzEwMzNcaGljaFxmMVxk DpSfQYRzODwnF4vhHsQz ZnMyMlxwYXJ9 MD DaoFlow Cytometry Specimen Collection -Bone [id number] 18:41:43 Test Item Value Reference Range Interpretation Comments Flow Cytometry Yes (Received) (test code = 8319) Beaker Ap Link (test [id number] code = 74104) GUILLAUME (test code = GUILLAUME) Premedication type:->NoneAspiration laterality:->UnilateralB iopsy laterality:->UnilateralP rocedure type:->ClotProcedure type:->BiopsyProcedure type:->AspirateSelect the Bone Marrow Stains:->IronSelect the Bone Marrow Stains:->Reticulin/Trich brenton MD DaoMolecular Diagnostics Specimen Collection -Bone [id number] 15:07:54 Test Item Value Reference Range Interpretation Comments Molecular Diagnostics Yes (Received) (test code = 8400) Pathology (Qualitative) (test code = 8412) GUILLAUME (test code = GUILLAUME) Premedication type:->NoneAspiration laterality:->Unilateral Biopsy laterality:->Unilateral Procedure type:->ClotProcedure type:->BiopsyProcedure type:->AspirateSelect the Bone Marrow Stains:->IronSelect the Bone Marrow Stains:->Reticulin/Tric hrome MD DaoBone marrow aspiration w/ [id number] 19:00:00LISA Carpenter 12/15/2019 8:01 AM Procedure: Bone marrow aspiration/biopsy Date/Time: 020 3:18 PM Provider Information:Performed by: CORIE Carpenteruthorized by: LISA Griffith Stummel Selector present: yesAssistant: Aga Krishnan applied research director used?: applied research director not neededPatient Diagnosis:Pre-procedure diagnosis: CMMLPost-procedure diagnosis: unchanged Indication:Indication: evaluation of disease status Anesthesia:Anesthesia: local infiltrationPatient anesthetized by: advanced practice providerLocal anesthetic: lidocaine 1% without epinephrineAnesthetic total (ml): 10Sedation:Patient sedated?: patient not sedated Aspirate Site(s):Laterality: rightSite location: posterior iliac crestInstrument(s) used: Sathish needleInstruments placed by: advanced practice providerBiopsy Site(s):Laterality: rightSite location: posterior iliac crestInstrument(s) used: Efrain needleInstruments placed by: advanced practice provider Dressing:Dressing: compression bandage Post-Procedure Patient Assessment:Patient tolerance: wellEstimated blood loss: minimalComplications/Observations: no complications Discharge/Disposition:Discharge instructions: verbal and patient verbalized understandingPatient discharged to: discharge to home Sample Disposition:Testing performed: flow cytometry, molecular, cytogenetics and pathologyStains performed: iron, reticulum and trichomeResearch samples(s): yesProtocol #: KORNBLAUAspirate volume obtained (mL) - right: 20Visual assessment for specimen adequacy - right: particlesVisual assessment for specimen adequacy - right: 1.6Specimen integrity - right: fragmented Comments:Patient tolerated procedure well. Kayla Greene APRN supervised the procedure.MD DaoB[facility] Centerassium Venous 2019-12-14 17:09:30 Test Item Value Reference Range Interpretation Comments V K (test code = 84154-4) 5.1 3.4- 4.5 mEq/L H Lab Interpretation (test code = Abnormal 76360-7) MD King HIV 1/2 Ag&Ab Path [id number] 14:20:41 Test Item Value Reference Range Interpretation Comments HIV 1/2 Ag&Ab Negative for Interp (test HIV-1 antigen and code = 9394) HIV-1/HIV-2 ____MELLY antibodies. No Jono NEWBERRY d by: laboratory Ayesha JARVIS evidence of HIV Date/Time: 0 12.11.2019 infection. If 9:20 AM CDT acute HIV Transcribed Ian e/Time: infection is 12.11.2019 9:20 AM suspected, CDTElectronical ly Signed consider testing By: maikel TELLES for HIV-1 RNA. 12.11.2019 9: 20 AM C MD King RPR Path [id number] 14:20:40 Test Item Value Reference Interpretation Comments Range TMP RPR Path The Rapid Interpretation Plasma Reagin (test code = (RPR) assay is [place] RLY 608155) negative. If a Isabelle NEWBERRY ed by: syphilis BARB infection is NEWBERRY,Dictated suspected, Date/Time: 12.01 please perform 9:20 AM CDT a Treponemal Transcribed Ian e/Time: specific 12.11.2019 9:20 AM screening CDTElectronical ly assay. Signed By: TAVO NEWBERRY, on 12.01 9:20 AM Bayron King HCV Ab Path [id number] 14:20:39 Test Item Value Reference Range Interpretation Comments HCV Ab Path There is NO Interp (test serologic code = 8923) evidence of ____KIMBERLY Hepatitis C CONI,Dictated by: virus antibody. BARB BRADSHAW IN,Dictated Date/Time: 12.01 9:20 AM CDT Transcribed Ian e/Time: 12.11.2019 9:20 AM CDTElectronical ly Signed By: BARB GRESHAM, on 12.11.2019 9:20 AM Bayron King HBcAb Path [id number] 14:20:38 Test Item Value Reference Range Interpretation Comments HBcAb Path There is NO Interp (test serologic code = 8924) evidence of ____YAJAIRABERLY Hepatitis B CONI,Dictated by: virus core BARB NEWBERRY, Dictated antibody. Date/Time: 12.01 9:20 AM CDT Transcribed Ian e/Time: 12.11.2019 9:20 AM CDTElectronical ly Signed By: BARB GRESHAM, on 12.11.2019 9:20 AM Bayron King HBsAg Path [id number] 14:20:37 Test Item Value Reference Range Interpretation Comments HBsAg Path There is NO Interp (test serologic code = 8922) evidence of ____KIMBERLY detectable CONI,Dictated by: Hepatitis B virus BARB MORGAN,Dictated surface antigen. Date/Time: 12.11.2019 9:20 AM CDT Transcribed Ian e/Time: 12.11.2019 9:20 AM CDTElectronical ly Signed By: BARB GRESHAM, on 12.11.2019 9:20 AM Bayron King HTLV Path [id number] 14:20:36 Test Item Value Reference Range Interpretation Comments TMP HTLV I/II Patient plasma Interp (test shows no code = 7549) evidence of ____KIMBERLY HTLV-I/II CONI,Dictated by: antibodies. BARB NEWBERRY, Dictated Please retest in Date/Time: 12.11.2019 6 months if an 9:20 AM CDT exposure is Transcribed Ian e/Time: 12.11.2019 9:20 AM CDTElectronical ly Signed By: BARB GRESHAM, on 12.11.2019 9:20 AM Bayron Contrerasd Plasma Reagin (RPR) [Syphilis SCREENING]2019-12-11 04:57:30 Test Item Value Reference Range Interpretation Comments RPR Screening (test code = Non Reactive Non Reactive 496067) MD Aponte C Virus [id number] 04:17:10 Test Item Value Reference Range Interpretation Comments HCVAb. (test code Non Reactive Non Reactive Performed at: = 5762) [facility] [id number] [place] [address] MD Aponte B Surface [id number] 04:16:51 Test Item Value Reference Range Interpretation Comments HBsAg. (test code Non Reactive Non Reactive Performed at: = 5747) [facility] [address] [address] MD Aponte B Total Ig Core Ab (SCREENING) (anti-HBc total Ig; HBcAb total Ig)2019-12-11 04:16:48 Test Item Value Reference Range Interpretation Comments HBcAb. (test code Non Reactive Non Reactive Performed at: = 5742) [facility] [id number] [place], [place] [address] MD DaoHTLV I/II [id number] 04:16:23 Test Item Value Reference Range Interpretation Comments HTLV I/II Ab. Non Reactive Non Reactive Performed at:M Lex (test code = 5842) [facility] [address] [address] MD DaoHIV-1/2 Antigen and Antibodies, Fourth [id number] 00:13:43 Test Item Value Reference Range Interpretation Comments HIV 1/2 Ag & Ab, Non Reactive Non Reactive Performed a t: 4th Gen (test code [facility] = 9280) [address] [address] MD DaoResearch Protocol [id number] 21:05:02 Test Item Value Reference Range Interpretation Comments Research Prot (test code = 7189) [id number] MD DaoVitamin B12 [id number] 19:22:54 Test Item Value Reference Range Interpretation Comments Vitamin B12 Lvl (test code = 8017) 442 pg/mL 211-946 MD DaoTfztalllCrmybent1734-59-35 19:05:24 Test Item Value Reference Range Interpretation Comments Ferritin Lvl (test code = 5608) 219 ng/mL 30-400 MD DaoConfirm [id number] 18:37:44 Test Item Value Reference Range Interpretation Comments ABORh Confirm. (test code = 882-1) A POS MD [id number] 18:01:40 Test Item Value Reference Range Interpretation Comments Erythropo Lvl (test code = 5523) 20.2 2.6- 18.5 mIU/mL H Lab Interpretation (test code = Abnormal 73046-6) MD DaoNT-Pro BNP (In-House)2019-12-10 17:45:30 Test Item Value Reference Range Interpretation Comments NT ProBNP (test code = 9385) 394 pg/mL <=125 H Lab Interpretation (test code = Abnormal 95164-1) MD DaoPartial Thromboplastin [id number] 17:23:50 Test Item Value Reference Range Interpretation Comments PTT (test code = 6773) 31.8 24.2- 36.0 second(s) MD DaoProthrombin [id number] 17:23:49 Test Item Value Reference Range Interpretation Comments PT (test code = 6746) 13.5 12.0- 14.3 second(s) INR (test code = 5973) 1.06 0.90-1.10 MD DaoFtlpvunfQqwkuqsnwq2881-59-88 17:23:24 Test Item Value Reference Range Interpretation Comments Fibrinogen (test code = 5610) 290 mg/dL 214-503 MD Rodríguez [id number] 17:23:23 Test Item Value Reference Range Interpretation Comments D-Dimer (test code = 1.20 0.10- 0.50 H The cut off value for 5419) mcg/ml FEU exclusion of ve nous thromboembolism is <0.50 mcg/mL FEUs (fi brinogen equivalent unit s). Lab Interpretation Abnormal (test code = 57373-4) MD [id number] 17:20:49 Test Item Value Reference Range Interpretation Comments TSH (test code = 7578) 1.27 0.27- 4.20 mcunit/mL MD DaoFolate [id number] 17:19:59 Test Item Value Reference Range Interpretation Comments Folate Lvl (test 12.3 ng/mL 4.8-24.2 Hemolyzed s pecimens with code = 5625) Hemolysis Index >30.0 (30 mg/dL or vi sible hemolysis) may cause interference an d give falsely high re sults. MD DaoRetic [id number] 16:43:11 Test Item Value Reference Range Interpretation Comments Retic Cnt Auto (test code = 21387-5) 2.4 % 0.5-1.5 H RETHE (test code = 6973) 37.7 pg 23.2-37.5 H IRF (test code = 57421-8) 25.2 % 2.3-18 H Lab Interpretation (test code = Abnormal 57156-9) MD DaoCOVID-19 (SARS-CoV-2) PCR-Asymptomatic [id number] 18:10:47 Test Item Value Reference Range Interpretation Comments COVID19 (SARS Not Detected Not Detected This test is a CoV-2) Result qualitative (test code = reverse-transcr iptase 25870-0) polymerase artem n reaction (RT-PC R) developed for t [employer] syst em and intended for th e detection of SA RS CoV-2 RNA in human nasopharyngeal specimens from patients who meet COVID- 19 clinical and/or epidemiological criteria. This assay has been approv ed by the FDA for use only under Emergency Use Authorization ( EUA) in laboratories th at have been CLIA-certi fied to perform moderate-comple xity and high-complexity tests. The performance characteristics of this assay were veri fied by the Microbiolog y Laboratory at [facility]. Results must be interpreted wit hin the context of all relevant clinical and la boratory findings and sh ould not form the sole b asis for a diagnosis or treatment decision.[employer] Et[employer] Developer al controls are in cluded to assess for p ossible amplification inhibitors. If inhibition is d etected, testing is repe ated and if inhibition i s confirmed the s pecimen is resulted as "Invalid". "Inconclusive" results are due to part ial amplification o f SARS-CoV-2 targ ets. When this occur s, results are con firmed by repeat testi ng before issuing an "Inconclusive" result. When an "Invali d" or "Inconclusive" results occur, it is recommended to wait a minimum of 3 da ys before submitti ng a new specimen for te sting if clinically dave cated. 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 Source (test code = 89459) COVID19 SARS New Patient Indication (test code = 93088) [facility] + automated [id number] 10:19:00 Test Item Value Reference Range Interpretation Comments WBC (test code = 6690-2) 17.2 3.5- 10.5 K/L H RBC (test code = 789-8) 3.16 4.63- 6.08 M/L L MCHC (test code = 786-4) 31.2 32.3- 36.5 GM/DL L Hematocrit (test code = 4544-3) 32.7 % 40.1-51 L MCV (test code = 787-2) 103.5 fL 79-92.2 H MCH (test code = 785-6) 32.3 pg 25.7-32.2 H RDW (test code = 788-0) 15.4 % 11.6-14.4 H Platelets (test code = 777-3) 56 150- 450 K/CU MM L MPV (test code = 10055-2) 10.0 fL 9.4-12.4 nRBC (test code = 413) 0 0- 0 /100 WBC Lab Interpretation (test code = Abnormal 26342-5) [facility] [id number] 10:19:00 Test Item Value Reference Range Interpretation Comments % Neutros (test code = 76 % 2816) % Lymphs (test code = 6 % 2817) % Monos (test code = 14 % 2818) % Eos (test code = 2819) 4 % # Neutros (test code = 13.07 K/ul 1.78-5.38 H 2830) # Lymphs (test code = 1.03 K/ul 1.32-3.57 L 2831) # Monos (test code = 2.41 K/uL 0.3-0.82 H 2832) # Eos (test code = 2834) 0.69 K/uL 0.04-0.54 H Total Counted (test code 100 = 1351) RBC Morphology (test code Normal = 762) WBC Morphology (test code Normal = 487) Platelet Morphology (test Normal code = 486) Artifact (test code = Present 3432) Platelet Conc (test code Decreased = 3438) GUILLAUME (test code = GUILLAUME) Received comment: User comments: Slide comments: Lab Interpretation (test Abnormal code = 89540-5) [facility] & AUTO [id number] 10:19:00 Test Item Value Reference Range Interpretation Comments WHITE BLOOD CELL COUNT (BEAKER) 17.2 K/ L 3.5-10.5 H (test code = 775) RED BLOOD CELL COUNT (BEAKER) 3.16 M/ L 4.63-6.08 L (test code = 761) HEMOGLOBIN (BEAKER) (test code = 10.2 GM/DL 13.7-17.5 L 410) HEMATOCRIT (BEAKER) (test code = 32.7 % 40.1-51.0 L 411) MEAN CORPUSCULAR VOLUME (BEAKER) 103.5 fL 79.0-92.2 H (test code = 753) MEAN CORPUSCULAR HEMOGLOBIN 32.3 pg 25.7-32.2 H (BEAKER) (test code = 751) MEAN CORPUSCULAR HEMOGLOBIN CONC 31.2 GM/DL 32.3-36.5 L (BEAKER) (test code = 752) RED CELL DISTRIBUTION WIDTH 15.4 % 11.6-14.4 H (BEAKER) (test code = 412) PLATELET COUNT (BEAKER) (test code 56 K/CU MM 150-450 L = 756) MEAN PLATELET VOLUME (BEAKER) 10.0 fL 9.4-12.4 (test code = 754) NUCLEATED RED BLOOD CELLS (BEAKER) 0 /100 WBC 0-0 (test code = 413) (CELLAVISION MANUAL DIFF)2019-04-10 10:19:00 Test Item Value Reference Range Interpretation Comments NEUTROPHILS - REL 76 % (CELLAVISION)(BEAKER) (test code = 2816) LYMPHOCYTES - REL 6 % (CELLAVISION)(BEAKER) (test code = 2817) MONOCYTES - REL 14 % (CELLAVISION)(BEAKER) (test code = 2818) EOSINOPHILS - REL 4 % (CELLAVISION)(BEAKER) (test code = 2819) NEUTROPHILS - ABS 13.07 K/ul 1.78-5.38 H (CELLAVISION)(BEAKER) (test code = 2830) LYMPHOCYTES - ABS 1.03 K/ul 1.32-3.57 L (CELLAVISION)(BEAKER) (test code = 2831) MONOCYTES - ABS 2.41 K/uL 0.30-0.82 H (CELLAVISION)(BEAKER) (test code = 2832) EOSINOPHILS - ABS 0.69 K/uL 0.04-0.54 H (CELLAVISION)(BEAKER) (test code = 2834) TOTAL COUNTED (BEAKER) (test code 100 = 1351) RBC MORPHOLOGY (BEAKER) (test code Normal = 762) WBC MORPHOLOGY (BEAKER) (test code Normal = 487) PLT MORPHOLOGY (BEAKER) (test code Normal = 486) ARTIFACT (CELLAVISION)(BEAKER) Present (test code = 3432) PLATELET CONCENTRATION Decreased (CELLAVISION)(BEAKER) (test code = 3438) Received comment: User comments: Slide comments:Basic Metabolic [id number] 05:19:00 Test Item Value Reference Range Interpretation Comments Sodium (test code = 136 meq/L 503-491 1453-2) Potassium (test code 4.7 meq/L 3.5-5.1 = 2823-3) Chloride (test code = 106 meq/L 98-107 2075-0) CO2 (test code = 22 meq/L 22-29 2028-9) BUN (test code = 15 mg/dL 7-21 3094-0) Creatinine (test code 1.11 mg/dL 0.57-1.25 = 2160-0) Glucose (test code = 95 mg/dL 70-105 2345-7) Calcium (test code = 8.6 mg/dL 8.4-10.2 94096-5) EGFR (test code = 65 mL/min/1.73 [place] [address]-0) ACCURATE CREATININE ROBERTA MELLISA IN PREDICTING GLOMERULAR FILT RATION RATE. ESTIMATED GFR IS NOT APPLICAB LE FOR DIALYSIS PATIEN TS. [facility] Hospital[facility]I [facility]OLIC [id number] 05:19:00 Test Item Value Reference Range Interpretation Comments SODIUM (BEAKER) 136 meq/L 136-145 (test code = 381) POTASSIUM (BEAKER) 4.7 meq/L 3.5-5.1 (test code = 379) CHLORIDE (BEAKER) 106 meq/L 98-107 (test code = 382) CO2 (BEAKER) (test 22 meq/L 22-29 code = 355) BLOOD UREA NITROGEN 15 mg/dL 7-21 (BEAKER) (test code = 354) CREATININE (BEAKER) 1.11 mg/dL 0.57-1.25 (test code = 358) GLUCOSE RANDOM 95 mg/dL 70-105 (BEAKER) (test code = 652) CALCIUM (BEAKER) 8.6 mg/dL 8.4-10.2 (test code = 697) EGFR (BEAKER) (test 65 mL/min/1.73 ESTIMA BRE GFR IS code = 1092) sq m NOT ACCURATE CREATININE CLEARANCE IN PREDICTING GLOMERULAR FILTRATION RATE . ESTIMATED GFR I S NOT APPLICABLE FOR DIALYSIS PATIEN TS. ECG 12 [id number] 14:36:11Interface, External Ris In - 04/09/2019 2:36 PM CSTVentricular Rate 60 BPMAtrial Rate 60 BPMP-R Interval 168 msQRS Duration 100 msQ-T Interval 428 msQTC Calculation(Bazett) 428 msP Woodward 69 degreesR Woodward -59 degreesT [place] 33 degreesSinus rhythm with marked sinus arrhythmiaLeft anterior fascicular blockNonspecific ST and T wave abnormalityAbnormal ECGWhen compared with ECG of 24-SEP-2018 09:29,Premature atrial complexes are no longer PresentConfirmed by MD Guillen Roberto ([id number]) on 04/09/2019 2:36:08 [facility] [id number] 10:45:00 Test Item Value Reference Range Interpretation Comments CROSSMATCH (test code = COMPATIBLE 2264) Unit ABO (test code = A Pos 3624924) UNIT NUMBER (test code = [id number] 934-0) Status (test code = RETURNED FROM ISSUE [id number]) Blood Bank Product (test RED BLOOD CELLS code = 2263) PRODUCT CODE (test code = F9314X73 933-2) [facility] ACTIVATED CLOTTING [id number] 09:50:00 Test Item Value Reference Range Interpretation Comments Activated Clotting Time 208 sec Refe rence Range: 74-137 (test code = 441) seconds, B aseline/TESTED AT [place] [address] [address] [place] [address] [facility] HospitalPOCT-[id number] 09:50:00 Test Item Value Reference Range Interpretation Comments ACTIVATED CLOTTING TIME 208 sec Refe rence Range: (BEAKER) (test code = 74-137 seconds, 441) Baseline/TESTED AT [address] [address] [id number] 09:13:00 Test Item Value Reference Range Interpretation Comments ACTIVATED CLOTTING TIME 246 sec Refe rence Range: (BEAKER) (test code = 74-137 seconds, 441) Baseline/TESTED AT [place] [id number] 0 CBC W/PLT COUNT & AUTO [id number] 07:02:00 Test Item Value Reference Range Interpretation Comments WHITE BLOOD CELL COUNT (BEAKER) 12.9 K/ L 3.5-10.5 H (test code = 775) RED BLOOD CELL COUNT (BEAKER) 3.37 M/ L 4.63-6.08 L (test code = 761) HEMOGLOBIN (BEAKER) (test code = 11.0 GM/DL 13.7-17.5 L 410) HEMATOCRIT (BEAKER) (test code = 35.0 % 40.1-51.0 L 411) MEAN CORPUSCULAR VOLUME (BEAKER) 103.9 fL 79.0-92.2 H (test code = 753) MEAN CORPUSCULAR HEMOGLOBIN 32.6 pg 25.7-32.2 H (BEAKER) (test code = 751) MEAN CORPUSCULAR HEMOGLOBIN CONC 31.4 GM/DL 32.3-36.5 L (BEAKER) (test code = 752) RED CELL DISTRIBUTION WIDTH 15.4 % 11.6-14.4 H (BEAKER) (test code = 412) PLATELET COUNT (BEAKER) (test code 59 K/CU MM 150-450 L = 756) MEAN PLATELET VOLUME (BEAKER) 10.1 fL 9.4-12.4 (test code = 754) NUCLEATED RED BLOOD CELLS (BEAKER) 0 /100 WBC 0-0 (test code = 413) (CELLAVISION MANUAL DIFF)2019-04-09 07:02:00 Test Item Value Reference Range Interpretation Comments NEUTROPHILS - REL 64 % (CELLAVISION)(BEAKER) (test code = 2816) LYMPHOCYTES - REL 9 % (CELLAVISION)(BEAKER) (test code = 2817) MONOCYTES - REL 23 % (CELLAVISION)(BEAKER) (test code = 2818) EOSINOPHILS - REL 4 % (CELLAVISION)(BEAKER) (test code = 2819) NEUTROPHILS - ABS 8.26 K/ul 1.78-5.38 H (CELLAVISION)(BEAKER) (test code = 2830) LYMPHOCYTES - ABS 1.16 K/ul 1.32-3.57 L (CELLAVISION)(BEAKER) (test code = 2831) MONOCYTES - ABS 2.97 K/uL 0.30-0.82 H (CELLAVISION)(BEAKER) (test code = 2832) EOSINOPHILS - ABS 0.52 K/uL 0.04-0.54 (CELLAVISION)(BEAKER) (test code = 2834) TOTAL COUNTED (BEAKER) (test code = 100 1351) RBC MORPHOLOGY (BEAKER) (test code Normal = 762) PLT MORPHOLOGY (BEAKER) (test code Normal = 486) SMUDGE CELLS (BEAKER) (test code = Present 1371) PLATELET CONCENTRATION Decreased (CELLAVISION)(BEAKER) (test code = 3438) Received comment: User comments: Slide comments:BASIC METABOLIC [id number] 06:34:00 Test Item Value Reference Range Interpretation Comments SODIUM (BEAKER) 138 meq/L 136-145 (test code = 381) POTASSIUM (BEAKER) 4.5 meq/L 3.5-5.1 (test code = 379) CHLORIDE (BEAKER) 106 meq/L 98-107 (test code = 382) CO2 (BEAKER) (test 27 meq/L 22-29 code = 355) BLOOD UREA NITROGEN 12 mg/dL 7-21 (BEAKER) (test code = 354) CREATININE (BEAKER) 1.13 mg/dL 0.57-1.25 (test code = 358) GLUCOSE RANDOM 99 mg/dL 70-105 (BEAKER) (test code = 652) CALCIUM (BEAKER) 9.0 mg/dL 8.4-10.2 (test code = 697) EGFR (BEAKER) (test 64 mL/min/1.73 ESTIMA BRE GFR IS code = 1092) sq m NOT ACCURATE CREATININE CLEARANCE IN PREDICTING GLOMERULAR FILTRATION RATE . ESTIMATED GFR I S NOT APPLICABLE FOR DIALYSIS PATIEN TS. Type and screen, automated (For the [facility] Lab Only)2019-04-08 12:31:00 Test Item Value Reference Range Interpretation Comments ABO/RH AUTOMATED (BEAKER) (test A POSITIVE code = 2260) Ab Scrn (test code = 890-4) NEGATIVE [facility] W/PLT COUNT & AUTO [id number] 11:06:00 Test Item Value Reference Range Interpretation Comments WHITE BLOOD CELL COUNT (BEAKER) 14.1 K/ L 3.5-10.5 H (test code = 775) RED BLOOD CELL COUNT (BEAKER) 3.53 M/ L 4.63-6.08 L (test code = 761) HEMOGLOBIN (BEAKER) (test code = 11.6 GM/DL 13.7-17.5 L 410) HEMATOCRIT (BEAKER) (test code = 36.7 % 40.1-51.0 L 411) MEAN CORPUSCULAR VOLUME (BEAKER) 104.0 fL 79.0-92.2 H (test code = 753) MEAN CORPUSCULAR HEMOGLOBIN 32.9 pg 25.7-32.2 H (BEAKER) (test code = 751) MEAN CORPUSCULAR HEMOGLOBIN CONC 31.6 GM/DL 32.3-36.5 L (BEAKER) (test code = 752) RED CELL DISTRIBUTION WIDTH 15.3 % 11.6-14.4 H (BEAKER) (test code = 412) PLATELET COUNT (BEAKER) (test code 52 K/CU MM 150-450 L = 756) MEAN PLATELET VOLUME (BEAKER) 9.2 fL 9.4-12.4 L (test code = 754) NUCLEATED RED BLOOD CELLS (BEAKER) 0 /100 WBC 0-0 (test code = 413) (CELLAVISION MANUAL DIFF)2019-04-08 11:06:00 Test Item Value Reference Range Interpretation Comments NEUTROPHILS - REL 70 % (CELLAVISION)(BEAKER) (test code = 2816) LYMPHOCYTES - REL 9 % (CELLAVISION)(BEAKER) (test code = 2817) MONOCYTES - REL 14 % (CELLAVISION)(BEAKER) (test code = 2818) EOSINOPHILS - REL 5 % (CELLAVISION)(BEAKER) (test code = 2819) MYELOCYTES - REL 1 % 0-0 H (CELLAVISION)(BEAKER) (test code = 2822) NEUTROPHILS - ABS 9.87 K/ul 1.78-5.38 H (CELLAVISION)(BEAKER) (test code = 2830) LYMPHOCYTES - ABS 1.27 K/ul 1.32-3.57 L (CELLAVISION)(BEAKER) (test code = 2831) MONOCYTES - ABS 1.97 K/uL 0.30-0.82 H (CELLAVISION)(BEAKER) (test code = 2832) EOSINOPHILS - ABS 0.71 K/uL 0.04-0.54 H (CELLAVISION)(BEAKER) (test code = 2834) MYELOCYTES-ABS 0.14 K/uL 0.00-0.00 H (CELLAVISION)(BEAKER) (test code = 2837) TOTAL COUNTED (BEAKER) (test code = 100 1351) RBC MORPHOLOGY (BEAKER) (test code Normal = 762) WBC MORPHOLOGY (BEAKER) (test code Normal = 487) PLT MORPHOLOGY (BEAKER) (test code Normal = 486) ARTIFACT (CELLAVISION)(BEAKER) Present (test code = 3432) PLATELET CONCENTRATION Decreased (CELLAVISION)(BEAKER) (test code = 3438) Received comment: User comments: Slide comments:Comprehensive metabolic panel 2019-04-08 10:22:00 Test Item Value Reference Range Interpretation Comments Protein, Total (test 7.8 6.0- 8.3 gm/dL code = 2885-2) Albumin (test code = 4.5 g/dL 3.5-5 06177-0) Alkaline Phosphatase 85 U/L 40-150 (test code = 6768-6) Total Bilirubin (test 0.4 mg/dL 0.2-1.2 code = 1975-2) Sodium (test code = 141 meq/L 149-609 5302-2) Potassium (test code = 4.9 meq/L 3.5-5.1 2823-3) Chloride (test code = 107 meq/L 98-107 2075-0) CO2 (test code = 29 meq/L 22-29 8-9) BUN (test code = 12 mg/dL 7-21 3094-0) Creatinine (test code 1.12 mg/dL 0.57-1.25 = 2160-0) Glucose (test code = 104 mg/dL 70-105 2345-7) Calcium (test code = 9.6 mg/dL 8.4-10.2 67193-1) AST (test code = 24 U/L 5-34 1920-8) ALT (test code = 15 U/L 6-55 1742-6) EGFR (test code = 64 mL/min/1.73 [place] [address]-2) ACCURATE CREATININE ROBERTA MELLISA IN PREDICTING GLOMERULAR FILTRATION RATE . ESTIMATED GFR I S NOT APPLICABLE FOR DIALYSIS JONY ZAPATA [facility] [id number] 10:22:00 Test Item Value Reference Range Interpretation Comments Triglycerides (test 140 mg/dL code = 2571-8) Cholesterol (test code 166 mg/dL = 2093-3) HDL (test code = 43 mg/dL 2085-9) LDL Calculated (test 95 mg/dL code = 36387-7) GUILLAUME (test code = GUILLAUME) Triglyceride Reference Range: Low Risk <150 Borderline 150-199 High Risk 200-499 Very High Risk >=500 Cholesterol Reference Range: Low Risk <200 Borderline 200-239 High Risk >240 HDL Cholesterol Reference Range: Low Risk >=60 High Risk <40 LDL Cholesterol Reference Range: Optimal <100 Near Optimal 100-129 Borderline 130-159 High 160-189 Very High >=190 [facility] HospitalLIPID [id number] 10:22:00 Test Item Value Reference Range Interpretation Comments TRIGLYCERIDES (BEAKER) (test code = 140 mg/dL 540) CHOLESTEROL (BEAKER) (test code = 166 mg/dL 631) HDL CHOLESTEROL (BEAKER) (test code 43 mg/dL = 976) LDL CHOLESTEROL CALCULATED (BEAKER) 95 mg/dL (test code = 633) Triglyceride Reference Range: Low Risk <150 Borderline 150-199 High Risk 200-499 Very High Risk >=500Cholesterol Reference Range: Low Risk <200 Borderline 200-239 High Risk >240HDL Cholesterol Reference Range: Low Risk >=60 High Risk <40LDL Cholesterol Reference Range: Optimal <100 Near Optimal 100-129 Borderline 130-159 High 160-189 Very High >=190COMPREHENSIVE METABOLIC [id number] 10:22:00 Test Item Value Reference Range Interpretation Comments TOTAL PROTEIN 7.8 gm/dL 6.0-8.3 (BEAKER) (test code = 770) ALBUMIN (BEAKER) 4.5 g/dL 3.5-5.0 (test code = 1145) ALKALINE PHOSPHATASE 85 U/L 40-150 (BEAKER) (test code = 346) BILIRUBIN TOTAL 0.4 mg/dL 0.2-1.2 (BEAKER) (test code = 377) SODIUM (BEAKER) (test 141 meq/L 136-145 code = 381) POTASSIUM (BEAKER) 4.9 meq/L 3.5-5.1 (test code = 379) CHLORIDE (BEAKER) 107 meq/L 98-107 (test code = 382) CO2 (BEAKER) (test 29 meq/L 22-29 code = 355) BLOOD UREA NITROGEN 12 mg/dL 7-21 (BEAKER) (test code = 354) CREATININE (BEAKER) 1.12 mg/dL 0.57-1.25 (test code = 358) GLUCOSE RANDOM 104 mg/dL 70-105 (BEAKER) (test code = 652) CALCIUM (BEAKER) 9.6 mg/dL 8.4-10.2 (test code = 697) AST (SGOT) (BEAKER) 24 U/L 5-34 (test code = 353) ALT (SGPT) (BEAKER) 15 U/L 6-55 (test code = 347) EGFR (BEAKER) (test 64 mL/min/1.73 ESTIMA RBE GFR IS code = 1092) sq m NOT ACCURATE CREATININE CLEARANCE IN PREDICTING GLOMERULAR FILTRATION RATE . ESTIMATED GFR I S NOT APPLICABLE FOR DIALYSIS PATIEN TS. PT/[id number] 10:11:00 Test Item Value Reference Range Interpretation Comments Protime (test code = 13.2 11.9- 14.2 5902-2) seconds INR (test code = 1.0 <=5.9 6301-6) PTT (test code = 35.7 22.5- 36.0 24305-6) seconds GUILLAUME (test code = GUILLAUME) Effective 10/29/2018: PT Reference Range ChangeNew: 11.9-14.2 Previous: 11.7-14.7 RECOMMENDED COUMADIN/WARFARIN INR THERAPY RANGESSTANDARD DOSE: 2.0-3.0 Includes: PROPHYLAXIS for venous thrombosis, systemic embolization; TREATMENT for venous thrombosis and/or pulmonary embolus.HIGH RISK: Target INR is 2.5-3.5 for patients wiht mechanical heart valves. Lab Interpretation Normal (test code = 36633-1) [facility] HospitalPT/[id number] 10:11:00 Test Item Value Reference Range Interpretation Comments PROTIME (BEAKER) (test code = 13.2 seconds 11.9-14.2 759) INR (BEAKER) (test code = 370) 1.0 <=5.9 PARTIAL THROMBOPLASTIN TIME 35.7 seconds 22.5-36.0 (BEAKER) (test code = 760) Effective 10/29/2018: PT Reference Range ChangeNew: 11.9-14.2 Previous: 11.7- 14.7RECOMMENDED COUMADIN/WARFARIN INR THERAPY RANGESSTANDARD DOSE: 2.0-3.0 Includes: PROPHYLAXIS for venous thrombosis, systemic embolization; TREATMENT for venous thrombosis and/or pulmonary embolus.HIGH RISK: Target INR is2.5-3.5 for patients wiht mechanical heart valves.TISSUE [id number] 16:04:00Surgical Pathology Report Case: [id number] Authorizing Provider: Madison Wang MD Collected: 09/24/2018 1109 Ordering Location: [facility] Received: 09/24/2018 1335 PERIOPERATIVE SERVICES Pathologist: Alfonso Wong MD Specimen: Pl aque, RIGHT CAROTID PLAQUE ARTERY, RIGHT CAROTID, ENDARTERECTOMY:CALCIFIC ATHEROSCLEROTIC PLAQUE Signing Pathologist Direct Phone Line: [phone] signed by Alfonso Wong MD on 09/29/2018 at 4:04 [id number]; [id number] stenosis right side Right carotid plaque Specimen is received in a formalin-filled container labeled withthe patient's information and labeled "right carotid plaque" and consists of a tubular shaped segment of calcified tissue measuring 3.5 cm in length and 0.8 cm in diameter. Medical Aides Teacher sections are submitted in A1 for decalcification. CG/ew PerformedCBC W/PLT COUNT & AUTO DIFFERENTIAL 2018-09-28 11:01:00 Test Item Value Reference Range Interpretation Comments WHITE BLOOD CELL COUNT (BEAKER) 10.5 K/ L 3.5-10.5 (test code = 775) RED BLOOD CELL COUNT (BEAKER) 2.90 M/ L 4.63-6.08 L (test code = 761) HEMOGLOBIN (BEAKER) (test code = 9.3 GM/DL 13.7-17.5 L 410) HEMATOCRIT (BEAKER) (test code = 29.5 % 40.1-51.0 L 411) MEAN CORPUSCULAR VOLUME (BEAKER) 101.7 fL 79.0-92.2 H (test code = 753) MEAN CORPUSCULAR HEMOGLOBIN 32.1 pg 25.7-32.2 (BEAKER) (test code = 751) MEAN CORPUSCULAR HEMOGLOBIN CONC 31.5 GM/DL 32.3-36.5 L (BEAKER) (test code = 752) RED CELL DISTRIBUTION WIDTH 16.2 % 11.6-14.4 H (BEAKER) (test code = 412) PLATELET COUNT (BEAKER) (test code 76 K/CU MM 150-450 L = 756) MEAN PLATELET VOLUME (BEAKER) 9.5 fL 9.4-12.4 (test code = 754) NUCLEATED RED BLOOD CELLS (BEAKER) 0 /100 WBC 0-0 (test code = 413) (CELLAVISION MANUAL DIFF)2018-09-28 11:01:00 Test Item Value Reference Range Interpretation Comments NEUTROPHILS - REL 78 % (CELLAVISION)(BEAKER) (test code = 2816) LYMPHOCYTES - REL 5 % (CELLAVISION)(BEAKER) (test code = 2817) MONOCYTES - REL 12 % (CELLAVISION)(BEAKER) (test code = 2818) EOSINOPHILS - REL 3 % (CELLAVISION)(BEAKER) (test code = 2819) BANDS - REL (CELLAVISION)(BEAKER) 2 % 0-10 (test code = 2826) NEUTROPHILS - ABS 8.19 K/ul 1.78-5.38 H (CELLAVISION)(BEAKER) (test code = 2830) LYMPHOCYTES - ABS 0.53 K/ul 1.32-3.57 L (CELLAVISION)(BEAKER) (test code = 2831) MONOCYTES - ABS 1.26 K/uL 0.30-0.82 H (CELLAVISION)(BEAKER) (test code = 2832) EOSINOPHILS - ABS 0.32 K/uL 0.04-0.54 (CELLAVISION)(BEAKER) (test code = 2834) BANDS - ABS (CELLAVISION)(BEAKER) 0.21 K/uL 0.00-0.80 (test code = 2840) TOTAL COUNTED (BEAKER) (test code = 100 1351) PLT MORPHOLOGY (BEAKER) (test code Normal = 486) SMUDGE CELLS (BEAKER) (test code = Present 1371) POLYCHROMATOPHILLIC RBCS(BEAKER) 1+ few (test code = 478) ANISOCYTOSIS (BEAKER) (test code = 1+ few 961) MICROCYTES (BEAKER) (test code = 1+ few 965) ARTIFACT (CELLAVISION)(BEAKER) Present (test code = 3432) PLATELET CONCENTRATION Decreased (CELLAVISION)(BEAKER) (test code = 3438) Received comment: User comments: Slide comments:RAD, CHEST, 1 VIEW, NON DEPT 2018-09-28 09:56:00Reason for exam:->coughShould this be performed at the bedside?->YesFINAL REPORT Technique: Frontal images of the chest COMPARISON: 06/16/2018 FINDINGS: Trace left pleural effusion with adjacent airspace disease appears decreased. Lungs otherwise are grossly clear. Cardiac silhouette is prominent. Postsurgical changes in the mediastinum noted. Signed: Jerry Chahaleport Verified Date/Time: 09/28/2018 09:56:53 Reading Location: [address] Ortho Consult Reading Room [id number] 06:09:00 Test Item Value Reference Range Interpretation Comments MAGNESIUM (BEAKER) (test code = 1.7 mg/dL 1.6-2.6 627) BASIC METABOLIC [id number] 06:09:00 Test Item Value Reference Range Interpretation Comments SODIUM (BEAKER) 137 meq/L 136-145 (test code = 381) POTASSIUM (BEAKER) 4.1 meq/L 3.5-5.1 (test code = 379) CHLORIDE (BEAKER) 103 meq/L 98-107 (test code = 382) CO2 (BEAKER) (test 26 meq/L 22-29 code = 355) BLOOD UREA NITROGEN 11 mg/dL 7-21 (BEAKER) (test code = 354) CREATININE (BEAKER) 0.84 mg/dL 0.57-1.25 (test code = 358) GLUCOSE RANDOM 97 mg/dL 70-105 (BEAKER) (test code = 652) CALCIUM (BEAKER) 8.9 mg/dL 8.4-10.2 (test code = 697) EGFR (BEAKER) (test 90 mL/min/1.73 ESTIMA BRE GFR IS code = 1092) sq m NOT ACCURATE CREATININE CLEARANCE IN PREDICTING GLOMERULAR FILTRATION RATE . ESTIMATED GFR I S NOT APPLICABLE FOR DIALYSIS PATIEN TS. MR, BRAIN, WITHOUT [id number] 17:40:00FINAL REPORT MRI brain Comparison: CT dated September 25, 2018 Reason for exam: C erebral ischemiadysarthria post R CEA Discussion: Sagittal and coronal T1, axial FLAIR, T2, gradientecho T2 star, diffusion sequences and ADC map images of the brain are provided. There are no intracranial hematomas, mass effect, hydrocephalus, shift, or extra-axial collections. There is a concordant generalized brain parenchymal volume loss. Minimal white matter chronic microvascular ischemic change. There are no areas of abnormal diffusion restriction. Flow-voids are seen in the basilar and internal carotid arteries as well as in the large posterior dural sinuses. The pineal, sella, and cranioce rvical junction regions are within normal limits. The visualized orbital contents, skullbase and surrounding soft tissues are unremarkable. There is mild mucosal thickening the right maxillary sinus. Remaining visualized paranasal sinuses and the mastoid air cells are clear. Impressions:No acute intracranial process. Signed: Israel Thomaseport Verified Date/Time: 09/27/2018 17:40:08 Reading Location: [address] Neuro Reading Room BASI METABOLIC [id number] 05:35:00 Test Item Value Reference Range Interpretation Comments SODIUM (BEAKER) 138 meq/L 136-145 (test code = 381) POTASSIUM (BEAKER) 4.1 meq/L 3.5-5.1 (test code = 379) CHLORIDE (BEAKER) 104 meq/L 98-107 (test code = 382) CO2 (BEAKER) (test 27 meq/L 22-29 code = 355) BLOOD UREA NITROGEN 8 mg/dL 7-21 (BEAKER) (test code = 354) CREATININE (BEAKER) 0.92 mg/dL 0.57-1.25 (test code = 358) GLUCOSE RANDOM 108 mg/dL 70-105 H (BEAKER) (test code = 652) CALCIUM (BEAKER) 9.0 mg/dL 8.4-10.2 (test code = 697) EGFR (BEAKER) (test 81 mL/min/1.73 ESTIMA BRE GFR IS code = 1092) sq m NOT ACCURATE CREATININE CLEARANCE IN PREDICTING GLOMERULAR FILTRATION RATE . ESTIMATED GFR I S NOT APPLICABLE FOR DIALYSIS PATIEN TS. CBC (HEMOGRAM ONLY)2018-09-27 05:09:00 Test Item Value Reference Range Interpretation Comments WHITE BLOOD CELL COUNT (BEAKER) 10.7 K/ L 3.5-10.5 H (test code = 775) RED BLOOD CELL COUNT (BEAKER) 2.84 M/ L 4.63-6.08 L (test code = 761) HEMOGLOBIN (BEAKER) (test code = 9.0 GM/DL 13.7-17.5 L 410) HEMATOCRIT (BEAKER) (test code = 28.9 % 40.1-51.0 L 411) MEAN CORPUSCULAR VOLUME (BEAKER) 101.8 fL 79.0-92.2 H (test code = 753) MEAN CORPUSCULAR HEMOGLOBIN 31.7 pg 25.7-32.2 (BEAKER) (test code = 751) MEAN CORPUSCULAR HEMOGLOBIN CONC 31.1 GM/DL 32.3-36.5 L (BEAKER) (test code = 752) RED CELL DISTRIBUTION WIDTH 15.9 % 11.6-14.4 H (BEAKER) (test code = 412) PLATELET COUNT (BEAKER) (test code 68 K/CU MM 150-450 L = 756) MEAN PLATELET VOLUME (BEAKER) 9.5 fL 9.4-12.4 (test code = 754) NUCLEATED RED BLOOD CELLS (BEAKER) 0 /100 WBC 0-0 (test code = 413) [id number] 06:27:00 Test Item Value Reference Range Interpretation Comments MAGNESIUM (BEAKER) (test code = 1.9 mg/dL 1.6-2.6 627) BASIC METABOLIC [id number] 06:27:00 Test Item Value Reference Range Interpretation Comments SODIUM (BEAKER) 139 meq/L 136-145 (test code = 381) POTASSIUM (BEAKER) 4.4 meq/L 3.5-5.1 (test code = 379) CHLORIDE (BEAKER) 103 meq/L 98-107 (test code = 382) CO2 (BEAKER) (test 30 meq/L 22-29 H code = 355) BLOOD UREA NITROGEN 7 mg/dL 7-21 (BEAKER) (test code = 354) CREATININE (BEAKER) 0.84 mg/dL 0.57-1.25 (test code = 358) GLUCOSE RANDOM 109 mg/dL 70-105 H (BEAKER) (test code = 652) CALCIUM (BEAKER) 9.4 mg/dL 8.4-10.2 (test code = 697) EGFR (BEAKER) (test 90 mL/min/1.73 ESTIMA BRE GFR IS code = 1092) sq m NOT ACCURATE CREATININE CLEARANCE IN PREDICTING GLOMERULAR FILTRATION RATE . ESTIMATED GFR I S NOT APPLICABLE FOR DIALYSIS PATIEN TS. CBC (HEMOGRAM ONLY)2018-09-26 06:05:00 Test Item Value Reference Range Interpretation Comments WHITE BLOOD CELL COUNT (BEAKER) 13.3 K/ L 3.5-10.5 H (test code = 775) RED BLOOD CELL COUNT (BEAKER) 3.02 M/ L 4.63-6.08 L (test code = 761) HEMOGLOBIN (BEAKER) (test code = 9.8 GM/DL 13.7-17.5 L 410) HEMATOCRIT (BEAKER) (test code = 30.8 % 40.1-51.0 L 411) MEAN CORPUSCULAR VOLUME (BEAKER) 102.0 fL 79.0-92.2 H (test code = 753) MEAN CORPUSCULAR HEMOGLOBIN 32.5 pg 25.7-32.2 H (BEAKER) (test code = 751) MEAN CORPUSCULAR HEMOGLOBIN CONC 31.8 GM/DL 32.3-36.5 L (BEAKER) (test code = 752) RED CELL DISTRIBUTION WIDTH 16.1 % 11.6-14.4 H (BEAKER) (test code = 412) PLATELET COUNT (BEAKER) (test code 79 K/CU MM 150-450 L = 756) MEAN PLATELET VOLUME (BEAKER) 9.4 fL 9.4-12.4 (test code = 754) NUCLEATED RED BLOOD CELLS (BEAKER) 0 /100 WBC 0-0 (test code = 413) CT, BRAIN, WITHOUT [id number] 14:11:00FINAL REPORT CT, BRAIN, WITHOUT CONTRAST INDICATION: Focal neuro deficit, new, fixed or worsening, >6 hours TECHNIQUE: Noncontrast axial imaging was obtained from the vertex to the skull base. Axial images were reconstructed using a bone algorithm. DOSE REDUCTION: Dose modulation, iterative reconstruction, and/or weight-based adjustment of the mA/kV was utilized to reduce the radiation dose to as low as reasonably achievable. COMPARISON: None. FINDINGS: Cerebral parenchyma:Diffuse parenchymal volume loss. Appearance of the white matter suggests chronic microvascular disease.Midline structures: Normally positioned.Cerebellum and brainstem: Commensurate volume loss.Ventricles: Normal volume.Extra-axial spaces: Unremarkable. Calvarium and skull base: Intact.Paranasal sinuses and mastoid air cells: Visible chambers are clear.Orbital contents: Included portions unremarkable. Additional findings: None. IMPRESSION: Chronic involutional changes without acute intracranial abn ormality. If there is persistent clinical concern for intracranial pathology, MR examination is recommended for further characterization. Signed: JR Schafer Robert MDReport Verified Date/Time: 09/25/2018 14:11:51 Reading Location: [facility] Radiology Reading Room [id number] 04:50:00 Test Item Value Reference Range Interpretation Comments MAGNESIUM (BEAKER) (test code = 1.7 mg/dL 1.6-2.6 627) BASIC METABOLIC [id number] 04:50:00 Test Item Value Reference Range Interpretation Comments SODIUM (BEAKER) 137 meq/L 136-145 (test code = 381) POTASSIUM (BEAKER) 3.6 meq/L 3.5-5.1 (test code = 379) CHLORIDE (BEAKER) 106 meq/L 98-107 (test code = 382) CO2 (BEAKER) (test 24 meq/L 22-29 code = 355) BLOOD UREA NITROGEN 9 mg/dL 7-21 (BEAKER) (test code = 354) CREATININE (BEAKER) 0.83 mg/dL 0.57-1.25 (test code = 358) GLUCOSE RANDOM 111 mg/dL 70-105 H (BEAKER) (test code = 652) CALCIUM (BEAKER) 8.4 mg/dL 8.4-10.2 (test code = 697) EGFR (BEAKER) (test 91 mL/min/1.73 ESTIMA BRE GFR IS code = 1092) sq m NOT ACCURATE CREATININE CLEARANCE IN PREDICTING GLOMERULAR FILTRATION RATE . ESTIMATED GFR I S NOT APPLICABLE FOR DIALYSIS PATIEN TS. CBC (HEMOGRAM ONLY)2018-09-25 04:32:00 Test Item Value Reference Range Interpretation Comments WHITE BLOOD CELL COUNT (BEAKER) 10.2 K/ L 3.5-10.5 (test code = 775) RED BLOOD CELL COUNT (BEAKER) 2.75 M/ L 4.63-6.08 L (test code = 761) HEMOGLOBIN (BEAKER) (test code = 8.8 GM/DL 13.7-17.5 L 410) HEMATOCRIT (BEAKER) (test code = 28.1 % 40.1-51.0 L 411) MEAN CORPUSCULAR VOLUME (BEAKER) 102.2 fL 79.0-92.2 H (test code = 753) MEAN CORPUSCULAR HEMOGLOBIN 32.0 pg 25.7-32.2 (BEAKER) (test code = 751) MEAN CORPUSCULAR HEMOGLOBIN CONC 31.3 GM/DL 32.3-36.5 L (BEAKER) (test code = 752) RED CELL DISTRIBUTION WIDTH 16.3 % 11.6-14.4 H (BEAKER) (test code = 412) PLATELET COUNT (BEAKER) (test code 81 K/CU MM 150-450 L = 756) MEAN PLATELET VOLUME (BEAKER) 9.7 fL 9.4-12.4 (test code = 754) NUCLEATED RED BLOOD CELLS (BEAKER) 0 /100 WBC 0-0 (test code = 413) CBC (HEMOGRAM ONLY)2018-09-24 18:17:00 Test Item Value Reference Range Interpretation Comments WHITE BLOOD CELL COUNT (BEAKER) 15.4 K/ L 3.5-10.5 H (test code = 775) RED BLOOD CELL COUNT (BEAKER) 2.73 M/ L 4.63-6.08 L (test code = 761) HEMOGLOBIN (BEAKER) (test code = 8.7 GM/DL 13.7-17.5 L 410) HEMATOCRIT (BEAKER) (test code = 27.7 % 40.1-51.0 L 411) MEAN CORPUSCULAR VOLUME (BEAKER) 101.5 fL 79.0-92.2 H (test code = 753) MEAN CORPUSCULAR HEMOGLOBIN 31.9 pg 25.7-32.2 (BEAKER) (test code = 751) MEAN CORPUSCULAR HEMOGLOBIN CONC 31.4 GM/DL 32.3-36.5 L (BEAKER) (test code = 752) RED CELL DISTRIBUTION WIDTH 16.9 % 11.6-14.4 H (BEAKER) (test code = 412) PLATELET COUNT (BEAKER) (test code 89 K/CU MM 150-450 L = 756) MEAN PLATELET VOLUME (BEAKER) 9.3 fL 9.4-12.4 L (test code = 754) NUCLEATED RED BLOOD CELLS (BEAKER) 0 /100 WBC 0-0 (test code = 413) GLUCOSE-STAT [id number] 14:26:00 Test Item Value Reference Range Interpretation Comments GLUCOSE RANDOM (BEAKER) (test code 118 mg/dL 70-110 H = 652) HGB/HCT (H&H) - STAT [id number] 14:26:00 Test Item Value Reference Range Interpretation Comments HEMOGLOBIN (BEAKER) (test code = 9.7 g/dL 13.0-16.8 L 410) HEMATOCRIT (BEAKER) (test code = 29.0 % 40.0-50.0 L 411) CBC W/PLT COUNT & AUTO [id number] 11:47:00 Test Item Value Reference Range Interpretation Comments WHITE BLOOD CELL COUNT (BEAKER) 11.4 K/ L 3.5-10.5 H (test code = 775) RED BLOOD CELL COUNT (BEAKER) 3.50 M/ L 4.63-6.08 L (test code = 761) HEMOGLOBIN (BEAKER) (test code = 11.2 GM/DL 13.7-17.5 L 410) HEMATOCRIT (BEAKER) (test code = 35.7 % 40.1-51.0 L 411) MEAN CORPUSCULAR VOLUME (BEAKER) 102.0 fL 79.0-92.2 H (test code = 753) MEAN CORPUSCULAR HEMOGLOBIN 32.0 pg 25.7-32.2 (BEAKER) (test code = 751) MEAN CORPUSCULAR HEMOGLOBIN CONC 31.4 GM/DL 32.3-36.5 L (BEAKER) (test code = 752) RED CELL DISTRIBUTION WIDTH 16.6 % 11.6-14.4 H (BEAKER) (test code = 412) PLATELET COUNT (BEAKER) (test code 57 K/CU MM 150-450 L = 756) MEAN PLATELET VOLUME (BEAKER) 9.6 fL 9.4-12.4 (test code = 754) NUCLEATED RED BLOOD CELLS (BEAKER) 0 /100 WBC 0-0 (test code = 413) (CELLAVISION MANUAL DIFF)2018-09-24 11:47:00 Test Item Value Reference Range Interpretation Comments NEUTROPHILS - REL 65 % (CELLAVISION)(BEAKER) (test code = 2816) LYMPHOCYTES - REL 8 % (CELLAVISION)(BEAKER) (test code = 2817) MONOCYTES - REL 17 % (CELLAVISION)(BEAKER) (test code = 2818) EOSINOPHILS - REL 2 % (CELLAVISION)(BEAKER) (test code = 2819) BASOPHILS - REL 1 % (CELLAVISION)(BEAKER) (test code = 2820) BANDS - REL (CELLAVISION)(BEAKER) 7 % 0-10 (test code = 2826) NEUTROPHILS - ABS 7.41 K/ul 1.78-5.38 H (CELLAVISION)(BEAKER) (test code = 2830) LYMPHOCYTES - ABS 0.91 K/ul 1.32-3.57 L (CELLAVISION)(BEAKER) (test code = 2831) MONOCYTES - ABS 1.94 K/uL 0.30-0.82 H (CELLAVISION)(BEAKER) (test code = 2832) EOSINOPHILS - ABS 0.23 K/uL 0.04-0.54 (CELLAVISION)(BEAKER) (test code = 2834) BASOPHILS - ABS 0.11 K/uL 0.01-0.08 H (CELLAVISION)(BEAKER) (test code = 2835) BANDS - ABS (CELLAVISION)(BEAKER) 0.80 K/uL 0.00-0.80 (test code = 2840) TOTAL COUNTED (BEAKER) (test code = 100 1351) RBC MORPHOLOGY (BEAKER) (test code Normal = 762) WBC MORPHOLOGY (BEAKER) (test code Normal = 487) PLT MORPHOLOGY (BEAKER) (test code Normal = 486) ARTIFACT (CELLAVISION)(BEAKER) Present (test code = 3432) PLATELET CONCENTRATION Decreased (CELLAVISION)(BEAKER) (test code = 3438) Received comment: User comments: Slide comments:BLOOD GAS, [id number] 10:40:00 Test Item Value Reference Range Interpretation Comments PH ARTERIAL (BEAKER) (test code = 7.36 7.35-7.45 383) PCO2 ARTERIAL (BEAKER) (test code 43 mmHg 35-45 = 384) PO2 ARTERIAL (BEAKER) (test code 310 mmHg 80-90 H = 385) O2 SATURATION ARTERIAL (BEAKER) 99.7 % 96.0-97.0 H (test code = 386) HCO3 ARTERIAL (BEAKER) (test code 25 mmol/L 21-29 = 388) BASE EXCESS ARTERIAL (BEAKER) -1.6 mmol/L -2.0-3.0 (test code = 387) PATIENT TEMPERATURE (BEAKER) 33.8 C (test code = 1818) FIO2 (BEAKER) (test code = 1819) 100.0 % GLUCOSE-STAT [id number] 10:40:00 Test Item Value Reference Range Interpretation Comments GLUCOSE RANDOM (BEAKER) (test code 113 mg/dL 70-110 H = 652) HGB/HCT (H&H) - STAT [id number] 10:40:00 Test Item Value Reference Range Interpretation Comments HEMOGLOBIN (BEAKER) (test code = 10.5 g/dL 13.0-16.8 L 410) HEMATOCRIT (BEAKER) (test code = 31.0 % 40.0-50.0 L 411) SODIUM NA-STAT [id number] 10:39:00 Test Item Value Reference Range Interpretation Comments SODIUM (BEAKER) (test code = 381) 135 meq/L 135-148 POTASSIUM-STAT [id number] 10:39:00 Test Item Value Reference Range Interpretation Comments POTASSIUM (BEAKER) (test code = 3.8 meq/L 3.6-5.5 379) HEMOGLOBIN [id number] 10:36:00 Test Item Value Reference Range Interpretation Comments HEMOGLOBIN A1C (BEAKER) (test code = 5.3 % 4.3-6.1 368) [id number] 09:00:00 Test Item Value Reference Range Interpretation Comments MAGNESIUM (BEAKER) (test code = 2.1 mg/dL 1.6-2.6 627) COMPREHENSIVE METABOLIC [id number] 09:00:00 Test Item Value Reference Range Interpretation Comments TOTAL PROTEIN 7.6 gm/dL 6.0-8.3 (BEAKER) (test code = 770) ALBUMIN (BEAKER) 4.4 g/dL 3.5-5.0 (test code = 1145) ALKALINE PHOSPHATASE 106 U/L 40-150 (BEAKER) (test code = 346) BILIRUBIN TOTAL 0.7 mg/dL 0.2-1.2 (BEAKER) (test code = 377) SODIUM (BEAKER) (test 137 meq/L 136-145 code = 381) POTASSIUM (BEAKER) 3.9 meq/L 3.5-5.1 (test code = 379) CHLORIDE (BEAKER) 104 meq/L 98-107 (test code = 382) CO2 (BEAKER) (test 27 meq/L 22-29 code = 355) BLOOD UREA NITROGEN 14 mg/dL 7-21 (BEAKER) (test code = 354) CREATININE (BEAKER) 1.05 mg/dL 0.57-1.25 (test code = 358) GLUCOSE RANDOM 105 mg/dL 70-105 (BEAKER) (test code = 652) CALCIUM (BEAKER) 9.4 mg/dL 8.4-10.2 (test code = 697) AST (SGOT) (BEAKER) 18 U/L 5-34 (test code = 353) ALT (SGPT) (BEAKER) 10 U/L 6-55 (test code = 347) EGFR (BEAKER) (test 69 mL/min/1.73 ESTIMA BRE GFR IS code = 1092) sq m NOT ACCURATE CREATININE CLEARANCE IN PREDICTING GLOMERULAR FILTRATION RATE . ESTIMATED GFR I S NOT APPLICABLE FOR DIALYSIS PATIEN TS. LIPID [id number] 09:00:00 Test Item Value Reference Range Interpretation Comments TRIGLYCERIDES (BEAKER) (test code = 114 mg/dL 540) CHOLESTEROL (BEAKER) (test code = 122 mg/dL 631) HDL CHOLESTEROL (BEAKER) (test code 35 mg/dL = 976) LDL CHOLESTEROL CALCULATED (BEAKER) 64 mg/dL (test code = 633) Triglyceride Reference Range: Low Risk <150 Borderline 150-199 High Risk 200-499 Very High Risk >=500Cholesterol Reference Range: Low Risk <200 Borderline 200-239 High Risk >240HDL Cholesterol Reference Range: Low Risk >=60 High Risk <40LDL Cholesterol Reference Range: Optimal <100 Near Optimal 100-129 Borderline 130-159 High 160-189 Very High >=[id number] 08:56:00 Test Item Value Reference Range Interpretation Comments PARTIAL THROMBOPLASTIN TIME 36.8 seconds 22.5-36.0 H (BEAKER) (test code = 760) PROTHROMBIN [id number] 08:55:00 Test Item Value Reference Range Interpretation Comments PROTIME (BEAKER) (test code = 13.8 seconds 11.7-14.7 759) INR (BEAKER) (test code = 370) 1.1 <=5.9 RECOMMENDED COUMADIN/WARFARIN INR THERAPY RANGESSTANDARD DOSE: 2.0 - 3.0 Includes: PROPHYLAXIS forvenous thrombosis, systemic embolization; TREATMENT for venous thrombosis and/or pulmonary embolus.HIGH RISK: Target INR is 2.5-3.5 for patients with mechanical heart valves.[id number] 05:31:00 Test Item Value Reference Range Interpretation Comments PHOSPHORUS (BEAKER) (test code = 4.0 mg/dL 2.3-4.7 604) [id number] 05:31:00 Test Item Value Reference Range Interpretation Comments MAGNESIUM (BEAKER) (test code = 2.0 mg/dL 1.6-2.6 627) BASIC METABOLIC [id number] 05:31:00 Test Item Value Reference Range Interpretation Comments SODIUM (BEAKER) 136 meq/L 136-145 (test code = 381) POTASSIUM (BEAKER) 4.0 meq/L 3.5-5.1 (test code = 379) CHLORIDE (BEAKER) 103 meq/L 98-107 (test code = 382) CO2 (BEAKER) (test 24 meq/L 22-29 code = 355) BLOOD UREA NITROGEN 9 mg/dL 7-21 (BEAKER) (test code = 354) CREATININE (BEAKER) 0.82 mg/dL 0.57-1.25 (test code = 358) GLUCOSE RANDOM 111 mg/dL 70-105 H (BEAKER) (test code = 652) CALCIUM (BEAKER) 9.1 mg/dL 8.4-10.2 (test code = 697) EGFR (BEAKER) (test 92 mL/min/1.73 ESTIMA BRE GFR IS code = 1092) sq m NOT ACCURATE CREATININE CLEARANCE IN PREDICTING GLOMERULAR FILTRATION RATE . ESTIMATED GFR I S NOT APPLICABLE FOR DIALYSIS PATIEN TS. CBC W/PLT COUNT & AUTO [id number] 05:11:00 Test Item Value Reference Range Interpretation Comments WHITE BLOOD CELL COUNT (BEAKER) 8.7 K/ L 3.5-10.5 (test code = 775) RED BLOOD CELL COUNT (BEAKER) 3.04 M/ L 4.63-6.08 L (test code = 761) HEMOGLOBIN (BEAKER) (test code = 9.7 GM/DL 13.7-17.5 L 410) HEMATOCRIT (BEAKER) (test code = 29.9 % 40.1-51.0 L 411) MEAN CORPUSCULAR VOLUME (BEAKER) 98.4 fL 79.0-92.2 H (test code = 753) MEAN CORPUSCULAR HEMOGLOBIN 31.9 pg 25.7-32.2 (BEAKER) (test code = 751) MEAN CORPUSCULAR HEMOGLOBIN CONC 32.4 GM/DL 32.3-36.5 (BEAKER) (test code = 752) RED CELL DISTRIBUTION WIDTH 16.0 % 11.6-14.4 H (BEAKER) (test code = 412) PLATELET COUNT (BEAKER) (test 108 K/CU MM 150-450 L code = 756) MEAN PLATELET VOLUME (BEAKER) 9.4 fL 9.4-12.4 (test code = 754) NUCLEATED RED BLOOD CELLS 0 /100 WBC 0-0 (BEAKER) (test code = 413) NEUTROPHILS RELATIVE PERCENT 64 % (BEAKER) (test code = 429) LYMPHOCYTES RELATIVE PERCENT 7 % (BEAKER) (test code = 430) MONOCYTES RELATIVE PERCENT 16 % (BEAKER) (test code = 431) EOSINOPHILS RELATIVE PERCENT 11 % (BEAKER) (test code = 432) BASOPHILS RELATIVE PERCENT 0 % (BEAKER) (test code = 437) NEUTROPHILS ABSOLUTE COUNT 5.51 K/ L 1.78-5.38 H (BEAKER) (test code = 670) LYMPHOCYTES ABSOLUTE COUNT 0.63 K/ L 1.32-3.57 L (BEAKER) (test code = 414) MONOCYTES ABSOLUTE COUNT (BEAKER) 1.36 K/ L 0.30-0.82 H (test code = 415) EOSINOPHILS ABSOLUTE COUNT 0.96 K/ L 0.04-0.54 H (BEAKER) (test code = 416) BASOPHILS ABSOLUTE COUNT (BEAKER) 0.03 K/ L 0.01-0.08 (test code = 417) IMMATURE GRANULOCYTES-RELATIVE 2 % 0-1 H PERCENT (BEAKER) (test code = 2801) RAD, CHEST, 1 VIEW, NON [id number] 08:23:00Reason for exam:->pl effusionShould this be performed at the bedside?->YesFINAL REPORT AP view of the chest dated 06/16/2018 COMPARISON: 06/15/2018 CLINICAL INFORMATION: pl effusion Comment: Heart is in the upper limits of normal in size. Their is prior sternotomy. Pulmonary vasculature is unremarkable. Lungs are clear. There is blunting of both costophrenic sulci suggestive of pleural diaphragmatic changes or trace bilateral pleural effusion. Signed: Lyle Zepeda Verified Date/Time: 06/16/2018 08:23:01 Reading Location: [facility] Radiology Reading Room CBC (HEMOGRAM ONLY)2018-06-16 05:37:00 Test Item Value Reference Range Interpretation Comments WHITE BLOOD CELL COUNT (BEAKER) 8.9 K/ L 3.5-10.5 (test code = 775) RED BLOOD CELL COUNT (BEAKER) 3.02 M/ L 4.63-6.08 L (test code = 761) HEMOGLOBIN (BEAKER) (test code = 9.6 GM/DL 13.7-17.5 L 410) HEMATOCRIT (BEAKER) (test code = 29.3 % 40.1-51.0 L 411) MEAN CORPUSCULAR VOLUME (BEAKER) 97.0 fL 79.0-92.2 H (test code = 753) MEAN CORPUSCULAR HEMOGLOBIN 31.8 pg 25.7-32.2 (BEAKER) (test code = 751) MEAN CORPUSCULAR HEMOGLOBIN CONC 32.8 GM/DL 32.3-36.5 (BEAKER) (test code = 752) RED CELL DISTRIBUTION WIDTH 16.6 % 11.6-14.4 H (BEAKER) (test code = 412) PLATELET COUNT (BEAKER) (test 102 K/CU MM 150-450 L code = 756) MEAN PLATELET VOLUME (BEAKER) 9.2 fL 9.4-12.4 L (test code = 754) NUCLEATED RED BLOOD CELLS 0 /100 WBC 0-0 (BEAKER) (test code = 413) RAD, CHEST, 1 VIEW, NON [id number] 12:25:00Reason for exam:->pl effusionShould this be performed at the bedside?->YesFINAL REPORT Comparison: 06/13/2018 TECHNIQUE: Single view of the chest FINDINGS: Interval removal of chest tubes. There is a small left apical pneumothorax which is new/increasedfrom before. There is a questionable tiny right apical pneumothorax. No other significant change. Scattered subsegmental atelectasis in the lungs again noted. Cardiac silhouette is enlarged. Postsurgical changes in the mediastinum noted. A stent projects over the right paratracheal region. Signed: Jerry Chahal MDReport Verified Date/Time: 06/15/2018 12:25:59 Reading Location: [address] Transitional Reading Room [id number] 06:08:00 Test Item Value Reference Range Interpretation Comments MAGNESIUM (BEAKER) (test code = 2.0 mg/dL 1.6-2.6 627) CBC (HEMOGRAM ONLY)2018-06-15 05:31:00 Test Item Value Reference Range Interpretation Comments WHITE BLOOD CELL COUNT (BEAKER) 10.1 K/ L 3.5-10.5 (test code = 775) RED BLOOD CELL COUNT (BEAKER) 3.30 M/ L 4.63-6.08 L (test code = 761) HEMOGLOBIN (BEAKER) (test code = 10.5 GM/DL 13.7-17.5 L 410) HEMATOCRIT (BEAKER) (test code = 32.8 % 40.1-51.0 L 411) MEAN CORPUSCULAR VOLUME (BEAKER) 99.4 fL 79.0-92.2 H (test code = 753) MEAN CORPUSCULAR HEMOGLOBIN 31.8 pg 25.7-32.2 (BEAKER) (test code = 751) MEAN CORPUSCULAR HEMOGLOBIN CONC 32.0 GM/DL 32.3-36.5 L (BEAKER) (test code = 752) RED CELL DISTRIBUTION WIDTH 17.5 % 11.6-14.4 H (BEAKER) (test code = 412) PLATELET COUNT (BEAKER) (test 116 K/CU MM 150-450 L code = 756) MEAN PLATELET VOLUME (BEAKER) 9.8 fL 9.4-12.4 (test code = 754) NUCLEATED RED BLOOD CELLS 0 /100 WBC 0-0 (BEAKER) (test code = 413) CBC W/PLT COUNT & AUTO [id number] 11:45:00 Test Item Value Reference Range Interpretation Comments WHITE BLOOD CELL COUNT (BEAKER) 9.1 K/ L 3.5-10.5 (test code = 775) RED BLOOD CELL COUNT (BEAKER) 3.23 M/ L 4.63-6.08 L (test code = 761) HEMOGLOBIN (BEAKER) (test code = 10.2 GM/DL 13.7-17.5 L 410) HEMATOCRIT (BEAKER) (test code = 31.6 % 40.1-51.0 L 411) MEAN CORPUSCULAR VOLUME (BEAKER) 97.8 fL 79.0-92.2 H (test code = 753) MEAN CORPUSCULAR HEMOGLOBIN 31.6 pg 25.7-32.2 (BEAKER) (test code = 751) MEAN CORPUSCULAR HEMOGLOBIN CONC 32.3 GM/DL 32.3-36.5 (BEAKER) (test code = 752) RED CELL DISTRIBUTION WIDTH 17.2 % 11.6-14.4 H (BEAKER) (test code = 412) PLATELET COUNT (BEAKER) (test code 94 K/CU MM 150-450 L = 756) MEAN PLATELET VOLUME (BEAKER) 9.9 fL 9.4-12.4 (test code = 754) NUCLEATED RED BLOOD CELLS (BEAKER) 0 /100 WBC 0-0 (test code = 413) (CELLAVISION MANUAL DIFF)2018-06-14 11:45:00 Test Item Value Reference Range Interpretation Comments NEUTROPHILS - REL 66 % (CELLAVISION)(BEAKER) (test code = 2816) LYMPHOCYTES - REL 5 % (CELLAVISION)(BEAKER) (test code = 2817) MONOCYTES - REL 17 % (CELLAVISION)(BEAKER) (test code = 2818) EOSINOPHILS - REL 9 % (CELLAVISION)(BEAKER) (test code = 2819) BANDS - REL (CELLAVISION)(BEAKER) 2 % 0-10 (test code = 2826) NEUTROPHILS - ABS 6.01 K/ul 1.78-5.38 H (CELLAVISION)(BEAKER) (test code = 2830) LYMPHOCYTES - ABS 0.46 K/ul 1.32-3.57 L (CELLAVISION)(BEAKER) (test code = 2831) MONOCYTES - ABS 1.55 K/uL 0.30-0.82 H (CELLAVISION)(BEAKER) (test code = 2832) EOSINOPHILS - ABS 0.82 K/uL 0.04-0.54 H (CELLAVISION)(BEAKER) (test code = 2834) BANDS - ABS (CELLAVISION)(BEAKER) 0.18 K/uL 0.00-0.80 (test code = 2840) TOTAL COUNTED (BEAKER) (test code 100 = 1351) WBC MORPHOLOGY (BEAKER) (test Normal code = 487) PLT MORPHOLOGY (BEAKER) (test Normal code = 486) POLYCHROMATOPHILLIC RBCS(BEAKER) 2+ moderate (test code = 478) HYPOCHROMIA (BEAKER) (test code = 1+ few 963) ANISOCYTOSIS (BEAKER) (test code 2+ moderate = 961) MICROCYTES (BEAKER) (test code = 2+ moderate 965) MACROCYTES (BEAKER) (test code = 3+ many 964) POIKILOCYTES (BEAKER) (test code 1+ few = 966) TARGET CELLS (BEAKER) (test code 1+ few = 480) OVALOCYTES (BEAKER) (test code = 1+ few 477) ACANTHOCYTES (BEAKER) (test code 1+ few = 471) ARTIFACT (CELLAVISION)(BEAKER) Present (test code = 3432) PLATELET CONCENTRATION Decreased (CELLAVISION)(BEAKER) (test code = 3438) Received comment: User comments: Slide comments:[id number] 06:12:00 Test Item Value Reference Range Interpretation Comments MAGNESIUM (BEAKER) (test code = 1.9 mg/dL 1.6-2.6 627) BASIC METABOLIC [id number] 06:12:00 Test Item Value Reference Range Interpretation Comments SODIUM (BEAKER) 135 meq/L 136-145 L (test code = 381) POTASSIUM (BEAKER) 4.6 meq/L 3.5-5.1 (test code = 379) CHLORIDE (BEAKER) 102 meq/L 98-107 (test code = 382) CO2 (BEAKER) (test 26 meq/L 22-29 code = 355) BLOOD UREA NITROGEN 11 mg/dL 7-21 (BEAKER) (test code = 354) CREATININE (BEAKER) 0.88 mg/dL 0.57-1.25 (test code = 358) GLUCOSE RANDOM 113 mg/dL 70-105 H (BEAKER) (test code = 652) CALCIUM (BEAKER) 9.0 mg/dL 8.4-10.2 (test code = 697) EGFR (BEAKER) (test 85 mL/min/1.73 ESTIMA BRE GFR IS code = 1092) sq m NOT ACCURATE CREATININE CLEARANCE IN PREDICTING GLOMERULAR FILTRATION RATE . ESTIMATED GFR I S NOT APPLICABLE FOR DIALYSIS PATIEN TS. Specimen slightly ictericCBC W/PLT COUNT & AUTO [id number] 12:36:00 Test Item Value Reference Range Interpretation Comments WHITE BLOOD CELL COUNT (BEAKER) 7.7 K/ L 3.5-10.5 (test code = 775) RED BLOOD CELL COUNT (BEAKER) 2.06 M/ L 4.63-6.08 L (test code = 761) HEMOGLOBIN (BEAKER) (test code = 6.9 GM/DL 13.7-17.5 L 410) HEMATOCRIT (BEAKER) (test code = 21.9 % 40.1-51.0 L 411) MEAN CORPUSCULAR VOLUME (BEAKER) 106.3 fL 79.0-92.2 H (test code = 753) MEAN CORPUSCULAR HEMOGLOBIN 33.5 pg 25.7-32.2 H (BEAKER) (test code = 751) MEAN CORPUSCULAR HEMOGLOBIN CONC 31.5 GM/DL 32.3-36.5 L (BEAKER) (test code = 752) RED CELL DISTRIBUTION WIDTH 15.5 % 11.6-14.4 H (BEAKER) (test code = 412) PLATELET COUNT (BEAKER) (test code 80 K/CU MM 150-450 L = 756) MEAN PLATELET VOLUME (BEAKER) 10.2 fL 9.4-12.4 (test code = 754) NUCLEATED RED BLOOD CELLS (BEAKER) 0 /100 WBC 0-0 (test code = 413) (CELLAVISION MANUAL DIFF)2018-06-13 12:36:00 Test Item Value Reference Range Interpretation Comments NEUTROPHILS - REL 64 % (CELLAVISION)(BEAKER) (test code = 2816) LYMPHOCYTES - REL 13 % (CELLAVISION)(BEAKER) (test code = 2817) MONOCYTES - REL 15 % (CELLAVISION)(BEAKER) (test code = 2818) EOSINOPHILS - REL 6 % (CELLAVISION)(BEAKER) (test code = 2819) BANDS - REL (CELLAVISION)(BEAKER) 2 % 0-10 (test code = 2826) NEUTROPHILS - ABS 4.93 K/ul 1.78-5.38 (CELLAVISION)(BEAKER) (test code = 2830) LYMPHOCYTES - ABS 1.00 K/ul 1.32-3.57 L (CELLAVISION)(BEAKER) (test code = 2831) MONOCYTES - ABS 1.16 K/uL 0.30-0.82 H (CELLAVISION)(BEAKER) (test code = 2832) EOSINOPHILS - ABS 0.46 K/uL 0.04-0.54 (CELLAVISION)(BEAKER) (test code = 2834) BANDS - ABS (CELLAVISION)(BEAKER) 0.15 K/uL 0.00-0.80 (test code = 2840) TOTAL COUNTED (BEAKER) (test code = 100 1351) WBC MORPHOLOGY (BEAKER) (test code Normal = 487) PLT MORPHOLOGY (BEAKER) (test code Normal = 486) POLYCHROMATOPHILLIC RBCS(BEAKER) 1+ few (test code = 478) ANISOCYTOSIS (BEAKER) (test code = 1+ few 961) MICROCYTES (BEAKER) (test code = 1+ few 965) ARTIFACT (CELLAVISION)(BEAKER) Present (test code = 3432) PLATELET CONCENTRATION Decreased (CELLAVISION)(BEAKER) (test code = 3438) Received comment: User comments: Slide comments:[id number] 06:33:00 Test Item Value Reference Range Interpretation Comments MAGNESIUM (BEAKER) (test code = 1.8 mg/dL 1.6-2.6 627) BASIC METABOLIC [id number] 06:33:00 Test Item Value Reference Range Interpretation Comments SODIUM (BEAKER) 135 meq/L 136-145 L (test code = 381) POTASSIUM (BEAKER) 4.1 meq/L 3.5-5.1 (test code = 379) CHLORIDE (BEAKER) 103 meq/L 98-107 (test code = 382) CO2 (BEAKER) (test 24 meq/L 22-29 code = 355) BLOOD UREA NITROGEN 12 mg/dL 7-21 (BEAKER) (test code = 354) CREATININE (BEAKER) 0.83 mg/dL 0.57-1.25 (test code = 358) GLUCOSE RANDOM 114 mg/dL 70-105 H (BEAKER) (test code = 652) CALCIUM (BEAKER) 8.5 mg/dL 8.4-10.2 (test code = 697) EGFR (BEAKER) (test 91 mL/min/1.73 ESTIMA BRE GFR IS code = 1092) sq m NOT ACCURATE CREATININE CLEARANCE IN PREDICTING GLOMERULAR FILTRATION RATE . ESTIMATED GFR I S NOT APPLICABLE FOR DIALYSIS PATIEN TS. RAD, CHEST, 1 VIEW, NON [id number] 04:27:00Reason for exam:->post-opShould this be performed at the bedside?->YesFINAL REPORT RAD, CHEST, 1 VIEW, NON DEPT INDICATION: post-op COMPARISON: Prior day's exam FINDINGS: Portable frontal view of the chest. IMPRESSION: Support Lines: Bilateral chest tubes and sternotomy wires are unchanged. Lungs and pleura: Left retrocardiac bibasilar interstitial opacities are unchanged without mary edema or airspace consolidation Heart and mediastinum: Stable contours. Additional findings: None. Signed: Macy Vincent MDReport Verified Date/Time: 06/13/2018 04:27:13 Reading Location: [facility] C013V Neuro Reading Room CBC W/PLT COUNT & AUTO [id number] 14:42:00 Test Item Value Reference Range Interpretation Comments WHITE BLOOD CELL COUNT (BEAKER) 9.7 K/ L 3.5-10.5 (test code = 775) RED BLOOD CELL COUNT (BEAKER) 2.23 M/ L 4.63-6.08 L (test code = 761) HEMOGLOBIN (BEAKER) (test code = 7.3 GM/DL 13.7-17.5 L 410) HEMATOCRIT (BEAKER) (test code = 22.9 % 40.1-51.0 L 411) MEAN CORPUSCULAR VOLUME (BEAKER) 102.7 fL 79.0-92.2 H (test code = 753) MEAN CORPUSCULAR HEMOGLOBIN 32.7 pg 25.7-32.2 H (BEAKER) (test code = 751) MEAN CORPUSCULAR HEMOGLOBIN CONC 31.9 GM/DL 32.3-36.5 L (BEAKER) (test code = 752) RED CELL DISTRIBUTION WIDTH 15.3 % 11.6-14.4 H (BEAKER) (test code = 412) PLATELET COUNT (BEAKER) (test code 74 K/CU MM 150-450 L = 756) MEAN PLATELET VOLUME (BEAKER) 10.0 fL 9.4-12.4 (test code = 754) NUCLEATED RED BLOOD CELLS (BEAKER) 0 /100 WBC 0-0 (test code = 413) (CELLAVISION MANUAL DIFF)2018-06-12 14:42:00 Test Item Value Reference Range Interpretation Comments NEUTROPHILS - REL 55 % (CELLAVISION)(BEAKER) (test code = 2816) LYMPHOCYTES - REL 8 % (CELLAVISION)(BEAKER) (test code = 2817) MONOCYTES - REL 17 % (CELLAVISION)(BEAKER) (test code = 2818) EOSINOPHILS - REL 8 % (CELLAVISION)(BEAKER) (test code = 2819) BASOPHILS - REL 1 % (CELLAVISION)(BEAKER) (test code = 2820) BANDS - REL (CELLAVISION)(BEAKER) 11 % 0-10 H (test code = 2826) NEUTROPHILS - ABS 5.34 K/ul 1.78-5.38 (CELLAVISION)(BEAKER) (test code = 2830) LYMPHOCYTES - ABS 0.78 K/ul 1.32-3.57 L (CELLAVISION)(BEAKER) (test code = 2831) MONOCYTES - ABS 1.65 K/uL 0.30-0.82 H (CELLAVISION)(BEAKER) (test code = 2832) EOSINOPHILS - ABS 0.78 K/uL 0.04-0.54 H (CELLAVISION)(BEAKER) (test code = 2834) BASOPHILS - ABS 0.10 K/uL 0.01-0.08 H (CELLAVISION)(BEAKER) (test code = 2835) BANDS - ABS (CELLAVISION)(BEAKER) 1.07 K/uL 0.00-0.80 H (test code = 2840) TOTAL COUNTED (BEAKER) (test code = 100 1351) WBC MORPHOLOGY (BEAKER) (test code Normal = 487) PLT MORPHOLOGY (BEAKER) (test code Normal = 486) POLYCHROMATOPHILLIC RBCS(BEAKER) 1+ few (test code = 478) ANISOCYTOSIS (BEAKER) (test code = 1+ few 961) ARTIFACT (CELLAVISION)(BEAKER) Present (test code = 3432) PLATELET CONCENTRATION Decreased (CELLAVISION)(BEAKER) (test code = 3438) Received comment: User comments: Slide comments:RAD, CHEST, 1 VIEW, NON DEPT 2018-06-12 11:47:00Reason for exam:->post-opShould this be performed at the bedside?->YesFINAL REPORT TECHNIQUE: Frontal chest radiograph dated 06/12/2018. CLINICAL HISTORY: Post op COMPARISON STUDY: Chest radiograph dated 06/11/2018 IMPRESSION:Bilateral chest tubes and mediastinal drains are in place. There is a small amount of bibasilar atelectasis. No pleural effusion or pneumothorax. Cardiomediastinal silhouette is normal in size. No pulmonary edema. Stable widening of the right acromial clavicular joint compared to the left. Midline sternotomy wires are intact and well aligned. Degenerative changes are seen in the spine. Signed: Madna Crews MDReport Verified Date/Time: 06/12/2018 11:47:39 Reading Location: [facility] Radiology Reading Room BASIC METABOLIC [id number] 06:19:00 Test Item Value Reference Range Interpretation Comments SODIUM (BEAKER) 134 meq/L 136-145 L (test code = 381) POTASSIUM (BEAKER) 4.3 meq/L 3.5-5.1 (test code = 379) CHLORIDE (BEAKER) 102 meq/L 98-107 (test code = 382) CO2 (BEAKER) (test 25 meq/L 22-29 code = 355) BLOOD UREA NITROGEN 12 mg/dL 7-21 (BEAKER) (test code = 354) CREATININE (BEAKER) 0.83 mg/dL 0.57-1.25 (test code = 358) GLUCOSE RANDOM 111 mg/dL 70-105 H (BEAKER) (test code = 652) CALCIUM (BEAKER) 8.8 mg/dL 8.4-10.2 (test code = 697) EGFR (BEAKER) (test 91 mL/min/1.73 ESTIMA BRE GFR IS code = 1092) sq m NOT ACCURATE CREATININE CLEARANCE IN PREDICTING GLOMERULAR FILTRATION RATE . ESTIMATED GFR I S NOT APPLICABLE FOR DIALYSIS PATIEN TS. RAD, CHEST, 1 VIEW, NON [id number] 09:05:00Reason for exam:->pl effusionShould this be performed at the bedside?->YesFINAL REPORT CLINICAL HISTORY: pl effusion TECHNIQUE: 1 view of the chest. COM PARISON: 06/10/2018 IMPRESSION: The right central line has been removed. Three chest tubes remain. There is no evidence of pneumothorax. There is bibasilar atelectasis. There is a trace right effusion. The cardiomediastinal silhouette is magnified by technique with sternotomy wires. Signed: Agatha Galvin MDReport Verified Date/Time: 06/11/2018 09:05:55 Reading Location: [facility] Radiology Reading Room [id number] 05:42:00 Test Item Value Reference Range Interpretation Comments MAGNESIUM (BEAKER) (test code = 1.9 mg/dL 1.6-2.6 627) BASIC METABOLIC [id number] 05:42:00 Test Item Value Reference Range Interpretation Comments SODIUM (BEAKER) 138 meq/L 136-145 (test code = 381) POTASSIUM (BEAKER) 4.7 meq/L 3.5-5.1 (test code = 379) CHLORIDE (BEAKER) 106 meq/L 98-107 (test code = 382) CO2 (BEAKER) (test 25 meq/L 22-29 code = 355) BLOOD UREA NITROGEN 12 mg/dL 7-21 (BEAKER) (test code = 354) CREATININE (BEAKER) 0.91 mg/dL 0.57-1.25 (test code = 358) GLUCOSE RANDOM 123 mg/dL 70-105 H (BEAKER) (test code = 652) CALCIUM (BEAKER) 9.0 mg/dL 8.4-10.2 (test code = 697) EGFR (BEAKER) (test 82 mL/min/1.73 ESTIMA BRE GFR IS code = 1092) sq m NOT ACCURATE CREATININE CLEARANCE IN PREDICTING GLOMERULAR FILTRATION RATE . ESTIMATED GFR I S NOT APPLICABLE FOR DIALYSIS PATIEN TS. CBC (HEMOGRAM ONLY)2018-06-11 05:19:00 Test Item Value Reference Range Interpretation Comments WHITE BLOOD CELL COUNT (BEAKER) 10.8 K/ L 3.5-10.5 H (test code = 775) RED BLOOD CELL COUNT (BEAKER) 2.33 M/ L 4.63-6.08 L (test code = 761) HEMOGLOBIN (BEAKER) (test code = 7.7 GM/DL 13.7-17.5 L 410) HEMATOCRIT (BEAKER) (test code = 24.0 % 40.1-51.0 L 411) MEAN CORPUSCULAR VOLUME (BEAKER) 103.0 fL 79.0-92.2 H (test code = 753) MEAN CORPUSCULAR HEMOGLOBIN 33.0 pg 25.7-32.2 H (BEAKER) (test code = 751) MEAN CORPUSCULAR HEMOGLOBIN CONC 32.1 GM/DL 32.3-36.5 L (BEAKER) (test code = 752) RED CELL DISTRIBUTION WIDTH 16.4 % 11.6-14.4 H (BEAKER) (test code = 412) PLATELET COUNT (BEAKER) (test code 77 K/CU MM 150-450 L = 756) MEAN PLATELET VOLUME (BEAKER) 9.9 fL 9.4-12.4 (test code = 754) NUCLEATED RED BLOOD CELLS (AKER) 0 /100 WBC 0-0 (test code = 413) POCT-GLUCOSE [id number] 19:48:00 Test Item Value Reference Range Interpretation Comments POC-GLUCOSE METER 157 mg/dL 70-110 H TESTED AT [place] [address] ([facility]) (test code = [address] [place] [address]) [id number] POCT-GLUCOSE [id number] 19:48:00 Test Item Value Reference Range Interpretation Comments POC-GLUCOSE METER 128 mg/dL 70-110 H TESTED AT [place] [address] ([facility]) (test code = [place] [place] [address]) [id number] HEMOGLOBIN AND [id number] 13:43:00 Test Item Value Reference Range Interpretation Comments HEMOGLOBIN (BEAKER) (test code = 7.8 GM/DL 13.7-17.5 L 410) HEMATOCRIT (BEAKER) (test code = 23.1 % 40.1-51.0 L 411) LACTIC ACID, ARTERIAL, WHOLE [id number] 09:11:00 Test Item Value Reference Range Interpretation Comments LACTATE BLOOD ARTERIAL (2) 1.4 mmol/L 0.5-2.2 ([facility]) (test code = 2874) OXYGEN SATURATION, [id number] 08:31:00 Test Item Value Reference Range Interpretation Comments O2 SATURATION (MEASURED) (AKER) 70.9 % (test code = 1455) RAD, CHEST, 1 VIEW, NON [id number] 05:56:00while patient is intubated or has chest tubes.Reason for exam:->Status post CV SurgeryShould thisbe performed at the bedside?->YesFINAL REPORT RAD, CHEST, 1 VIEW, NON DEPT INDICATION: Status post CV Surgery COMPARISON: Prior day's exam FINDINGS: Portable frontal view of the chest. IMPRESSION: Support Lines: Interval extubation. Otherwise unchanged support apparatus. Lungs and pleura: Unchanged airspace and pleural opacities. No pneumothorax.Heart and mediastinum: Stable contours. Stable surgical changes.Additional findings: None. Signed: Jeanie Coronaepyvette Verified Date/Time: 06/10/2018 05:56:50 Reading Location: [address] Transitional Reading Room [id number] 04:23:00 Test Item Value Reference Range Interpretation Comments PHOSPHORUS (BEAKER) (test code = 3.6 mg/dL 2.3-4.7 604) [id number] 04:23:00 Test Item Value Reference Range Interpretation Comments MAGNESIUM (BEAKER) (test code = 2.3 mg/dL 1.6-2.6 627) BASIC METABOLIC [id number] 04:23:00 Test Item Value Reference Range Interpretation Comments SODIUM (BEAKER) 140 meq/L 136-145 (test code = 381) POTASSIUM (BEAKER) 4.4 meq/L 3.5-5.1 (test code = 379) CHLORIDE (BEAKER) 111 meq/L 98-107 H (test code = 382) CO2 (BEAKER) (test 21 meq/L 22-29 L code = 355) BLOOD UREA NITROGEN 16 mg/dL 7-21 (BEAKER) (test code = 354) CREATININE (BEAKER) 0.93 mg/dL 0.57-1.25 (test code = 358) GLUCOSE RANDOM 135 mg/dL 70-105 H (BEAKER) (test code = 652) CALCIUM (BEAKER) 8.0 mg/dL 8.4-10.2 L (test code = 697) EGFR (BEAKER) (test 80 mL/min/1.73 ESTIMA BRE GFR IS code = 1092) sq m NOT ACCURATE CREATININE CLEARANCE IN PREDICTING GLOMERULAR FILTRATION RATE . ESTIMATED GFR I S NOT APPLICABLE FOR DIALYSIS PATIEN TS. LACTIC ACID, ARTERIAL, WHOLE [id number] 04:15:00 Test Item Value Reference Range Interpretation Comments LACTATE BLOOD ARTERIAL (2) 2.3 mmol/L 0.5-2.2 H (BEAKER) (test code = 2874) CBC (HEMOGRAM ONLY)2018-06-10 04:02:00 Test Item Value Reference Range Interpretation Comments WHITE BLOOD CELL COUNT (BEAKER) 12.0 K/ L 3.5-10.5 H (test code = 775) RED BLOOD CELL COUNT (BEAKER) 2.19 M/ L 4.63-6.08 L (test code = 761) HEMOGLOBIN (BEAKER) (test code = 7.2 GM/DL 13.7-17.5 L 410) HEMATOCRIT (BEAKER) (test code = 22.5 % 40.1-51.0 L 411) MEAN CORPUSCULAR VOLUME (BEAKER) 102.7 fL 79.0-92.2 H (test code = 753) MEAN CORPUSCULAR HEMOGLOBIN 32.9 pg 25.7-32.2 H (BEAKER) (test code = 751) MEAN CORPUSCULAR HEMOGLOBIN CONC 32.0 GM/DL 32.3-36.5 L (BEAKER) (test code = 752) RED CELL DISTRIBUTION WIDTH 17.0 % 11.6-14.4 H (BEAKER) (test code = 412) PLATELET COUNT (BEAKER) (test code 96 K/CU MM 150-450 L = 756) MEAN PLATELET VOLUME (BEAKER) 9.3 fL 9.4-12.4 L (test code = 754) NUCLEATED RED BLOOD CELLS (BEAKER) 0 /100 WBC 0-0 (test code = 413) BLOOD GAS, [id number] 22:21:00 Test Item Value Reference Range Interpretation Comments PH ARTERIAL (BEAKER) (test code = 7.41 7.35-7.45 383) PCO2 ARTERIAL (BEAKER) (test code 37 mmHg 35-45 = 384) PO2 ARTERIAL (BEAKER) (test code 131 mmHg 80-90 H = 385) O2 SATURATION ARTERIAL (BEAKER) 98.7 % 96.0-97.0 H (test code = 386) HCO3 ARTERIAL (BEAKER) (test code 23 mmol/L 21-29 = 388) BASE EXCESS ARTERIAL (BEAKER) -1.7 mmol/L -2.0-3.0 (test code = 387) PATIENT TEMPERATURE (BEAKER) 36.9 C (test code = 1818) FIO2 (BEAKER) (test code = 1819) 36.0 % LACTIC ACID, ARTERIAL, WHOLE [id number] 21:36:00 Test Item Value Reference Range Interpretation Comments LACTATE BLOOD ARTERIAL (2) 1.6 mmol/L 0.5-2.2 (BEAKER) (test code = 2874) [id number] 21:36:00 Test Item Value Reference Range Interpretation Comments MAGNESIUM (BEAKER) (test code = 2.3 mg/dL 1.6-2.6 627) BLOOD GAS, [id number] 21:15:00 Test Item Value Reference Range Interpretation Comments PH ARTERIAL (BEAKER) (test code = 7.43 7.35-7.45 383) PCO2 ARTERIAL (BEAKER) (test code 35 mmHg 35-45 = 384) PO2 ARTERIAL (BEAKER) (test code 115 mmHg 80-90 H = 385) O2 SATURATION ARTERIAL (BEAKER) 98.3 % 96.0-97.0 H (test code = 386) HCO3 ARTERIAL (BEAKER) (test code 22 mmol/L -29 = 388) BASE EXCESS ARTERIAL (BEAKER) -1.7 mmol/L -2.0-3.0 (test code = 387) PATIENT TEMPERATURE (BEAKER) 36.9 C (test code = 1818) FIO2 (BEAKER) (test code = 1819) 60.0 % GLUCOSE-STAT [id number] 21:15:00 Test Item Value Reference Range Interpretation Comments GLUCOSE RANDOM (BEAKER) (test code 149 mg/dL 70-110 H = 652) HGB/HCT (H&H) - STAT [id number] 21:15:00 Test Item Value Reference Range Interpretation Comments HEMOGLOBIN (BEAKER) (test code = 9.0 g/dL 13.0-16.8 L 410) HEMATOCRIT (BEAKER) (test code = 26.0 % 40.0-50.0 L 411) THROMBOELASTOGRAPH (TEG)2018-06-09 18:51:00 Test Item Value Reference Range Interpretation Comments TEG ACTIVATED CLOTTING TIME 4.7 minutes 4.0-7.0 (BEAKER) (test code = 1407) TEG FIBRINOGEN ACTIVITY (BEAKER) 72.0 degrees 61.0-73.0 (test code = 1408) TEG PLT. AGGREGATION (BEAKER) 56.3 MM 55.0-65.0 (test code = 1409) TEG FIBRINOLYSIS (BEAKER) (test 0.0 % 0.0-5.0 code = 1410) TGH ACTIVATED CLOTTING TIME 4.6 minutes 4.0-7.0 (BEAKER) (test code = 1411) TGH FIBRINOGEN ACTIVITY (BEAKER) 72.6 degrees 61.0-73.0 (test code = 1412) TGH PLT. AGGREGATION (BEAKER) 53.0 MM 55.0-65.0 L (test code = 1413) TGH FIBRINOLYSIS (BEAKER) (test 0.0 % 0.0-5.0 code = 1414) CALCIUM, [id number] 18:48:00 Test Item Value Reference Range Interpretation Comments CALCIUM IONIZED (BEAKER) (test 1.16 mmol/L 1.12-1.27 code = 698) PH, BLOOD (BEAKER) (test code = 7.38 1810) BLOOD GAS, [id number] 18:48:00 Test Item Value Reference Range Interpretation Comments PH ARTERIAL (BEAKER) (test code = 7.38 7.35-7.45 383) PCO2 ARTERIAL (BEAKER) (test code 39 mmHg 35-45 = 384) PO2 ARTERIAL (BEAKER) (test code 372 mmHg 80-90 H = 385) O2 SATURATION ARTERIAL (BEAKER) 99.8 % 96.0-97.0 H (test code = 386) HCO3 ARTERIAL (BEAKER) (test code 23 mmol/L 21-29 = 388) BASE EXCESS ARTERIAL (BEAKER) -2.4 mmol/L -2.0-3.0 L (test code = 387) PATIENT TEMPERATURE (BEAKER) 36.4 C (test code = 1818) FIO2 (BEAKER) (test code = 1819) 100.0 % GLUCOSE-STAT [id number] 18:48:00 Test Item Value Reference Range Interpretation Comments GLUCOSE RANDOM (BEAKER) (test code 146 mg/dL 70-110 H = 652) HGB/HCT (H&H) - STAT [id number] 18:48:00 Test Item Value Reference Range Interpretation Comments HEMOGLOBIN (BEAKER) (test code = 9.2 g/dL 13.0-16.8 L 410) HEMATOCRIT (BEAKER) (test code = 27.0 % 40.0-50.0 L 411) SODIUM NA-STAT [id number] 18:47:00 Test Item Value Reference Range Interpretation Comments SODIUM (BEAKER) (test code = 381) 137 meq/L 135-148 POTASSIUM-STAT [id number] 18:47:00 Test Item Value Reference Range Interpretation Comments POTASSIUM (BEAKER) (test code = 4.1 meq/L 3.6-5.5 379) RAD, CHEST, 1 VIEW, NON [id number] 18:00:00Reason for exam:->sp cardiac surgery intubatedShould this be performed at the bedside?->YesFINAL REPORT Chest, 1 view. History: Status post cardiac surgery. Comparison:05/20/2018. Impression: Endotracheal tube tip identified terminating approximately 5.5 cm above thecarina. There are postsurgical changes from interval median sternotomy. Bilateral chest tubes and suspected mediastinal drain identified in place. Right IJ central venous catheter identified in stable position. The trachea is midline. There are mildly increased linear opacities noted within the right lower lung zone suggestive of atelectasis. There is no evidence for large focal consolidation, pneumothorax, or significant pleural effusion. The cardiomediastinal silhouette is stable in appearance. Stable vascular stent identified superimposed over the right sternoclavicular region. No acute osseous abnormalities identified. Signed: Alvaro Rose MDReport Verified Date/Time: 06/09/2018 18:00:13 Reading Location: [facility] B1 C013W Consult Reading Room [id number] 17:50:00 Test Item Value Reference Range Interpretation Comments POTASSIUM (BEAKER) (test code = 4.2 meq/L 3.5-5.1 379) [id number] 17:50:00 Test Item Value Reference Range Interpretation Comments MAGNESIUM (BEAKER) (test code = 2.1 mg/dL 1.6-2.6 627) [id number] 17:50:00 Test Item Value Reference Range Interpretation Comments GLUCOSE RANDOM (BEAKER) (test code 127 mg/dL 70-105 H = 652) BASIC METABOLIC [id number] 17:50:00 Test Item Value Reference Range Interpretation Comments SODIUM (BEAKER) 140 meq/L 136-145 (test code = 381) POTASSIUM (BEAKER) 4.2 meq/L 3.5-5.1 (test code = 379) CHLORIDE (BEAKER) 112 meq/L 98-107 H (test code = 382) CO2 (BEAKER) (test 22 meq/L 22-29 code = 355) BLOOD UREA NITROGEN 16 mg/dL 7-21 (BEAKER) (test code = 354) CREATININE (BEAKER) 0.83 mg/dL 0.57-1.25 (test code = 358) GLUCOSE RANDOM 127 mg/dL 70-105 H (BEAKER) (test code = 652) CALCIUM (BEAKER) 9.1 mg/dL 8.4-10.2 (test code = 697) EGFR (BEAKER) (test 91 mL/min/1.73 ESTIMA BRE GFR IS code = 1092) sq m NOT ACCURATE CREATININE CLEARANCE IN PREDICTING GLOMERULAR FILTRATION RATE . ESTIMATED GFR I S NOT APPLICABLE FOR DIALYSIS PATIEN TS. LACTIC ACID, ARTERIAL, WHOLE [id number] 17:47:00 Test Item Value Reference Range Interpretation Comments LACTATE BLOOD 1.3 mmol/L 0.5-2.2 Specimen sligh tly ARTERIAL (2) (BEAKER) hemoly zed (test code = 2874) [id number] 17:43:00 Test Item Value Reference Range Interpretation Comments PARTIAL THROMBOPLASTIN TIME 29.2 seconds 22.5-36.0 (BEAKER) (test code = 760) [id number] 17:43:00 Test Item Value Reference Range Interpretation Comments FIBRINOGEN LEVEL (BEAKER) (test 264 mg/dl 225-434 code = 658) PROTHROMBIN [id number] 17:42:00 Test Item Value Reference Range Interpretation Comments PROTIME (BEAKER) (test code = 15.4 seconds 11.7-14.7 H 759) INR (BEAKER) (test code = 370) 1.2 <=5.9 RECOMMENDED COUMADIN/WARFARIN INR THERAPY RANGESSTANDARD DOSE: 2.0 - 3.0 Includes: PROPHYLAXIS forvenous thrombosis, systemic embolization; TREATMENT for venous thrombosis and/or pulmonary embolus.HIGH RISK: Target INR is 2.5-3.5 for patients with mechanical heart valves.CBC (HEMOGRAM ONLY)2018-06-09 17:31:00 Test Item Value Reference Range Interpretation Comments WHITE BLOOD CELL COUNT (BEAKER) 16.1 K/ L 3.5-10.5 H (test code = 775) RED BLOOD CELL COUNT (BEAKER) 2.74 M/ L 4.63-6.08 L (test code = 761) HEMOGLOBIN (BEAKER) (test code = 9.2 GM/DL 13.7-17.5 L 410) HEMATOCRIT (BEAKER) (test code = 27.5 % 40.1-51.0 L 411) MEAN CORPUSCULAR VOLUME (BEAKER) 100.4 fL 79.0-92.2 H (test code = 753) MEAN CORPUSCULAR HEMOGLOBIN 33.6 pg 25.7-32.2 H (BEAKER) (test code = 751) MEAN CORPUSCULAR HEMOGLOBIN CONC 33.5 GM/DL 32.3-36.5 (BEAKER) (test code = 752) RED CELL DISTRIBUTION WIDTH 15.6 % 11.6-14.4 H (BEAKER) (test code = 412) PLATELET COUNT (BEAKER) (test 142 K/CU MM 150-450 L code = 756) MEAN PLATELET VOLUME (BEAKER) 9.6 fL 9.4-12.4 (test code = 754) NUCLEATED RED BLOOD CELLS 0 /100 WBC 0-0 (BEAKER) (test code = 413) OXYGEN SATURATION, [id number] 17:28:00 Test Item Value Reference Range Interpretation Comments O2 SATURATION (MEASURED) (BEAKER) 80.0 % (test code = 1455) CALCIUM, [id number] 17:27:00 Test Item Value Reference Range Interpretation Comments CALCIUM IONIZED (BEAKER) (test 1.21 mmol/L 1.12-1.27 code = 698) PH, BLOOD (BEAKER) (test code = 7.37 1810) BLOOD GAS, [id number] 17:27:00 Test Item Value Reference Range Interpretation Comments PH ARTERIAL (BEAKER) (test code = 7.37 7.35-7.45 383) PCO2 ARTERIAL (BEAKER) (test code 44 mmHg 35-45 = 384) PO2 ARTERIAL (BEAKER) (test code 224 mmHg 80-90 H = 385) O2 SATURATION ARTERIAL (BEAKER) 99.5 % 96.0-97.0 H (test code = 386) HCO3 ARTERIAL (BEAKER) (test code 25 mmol/L 21-29 = 388) BASE EXCESS ARTERIAL (BEAKER) -0.8 mmol/L -2.0-3.0 (test code = 387) PATIENT TEMPERATURE (BEAKER) 36.1 C (test code = 1818) FIO2 (BEAKER) (test code = 1819) 60.0 % GLUCOSE-STAT [id number] 17:27:00 Test Item Value Reference Range Interpretation Comments GLUCOSE RANDOM (BEAKER) (test code 126 mg/dL 70-110 H = 652) HGB/HCT (H&H) - STAT [id number] 17:27:00 Test Item Value Reference Range Interpretation Comments HEMOGLOBIN (BEAKER) (test code = 9.9 g/dL 13.0-16.8 L 410) HEMATOCRIT (BEAKER) (test code = 29.0 % 40.0-50.0 L 411) SODIUM NA-STAT [id number] 17:26:00 Test Item Value Reference Range Interpretation Comments SODIUM (BEAKER) (test code = 381) 138 meq/L 135-148 POTASSIUM-STAT [id number] 17:26:00 Test Item Value Reference Range Interpretation Comments POTASSIUM (BEAKER) (test code = 4.1 meq/L 3.6-5.5 379) [id number] 16:10:00 Test Item Value Reference Range Interpretation Comments ACTIVATED CLOTTING TIME [address] [facility] 67[address] (BEAKER) (test code = [place] [address]) [id number] 16:10:00 Test Item Value Reference Range Interpretation Comments ACTIVATED CLOTTING TIME 720 sec TEST ED AT [place] [address] [facility] (test code = [place] [address]) [id number] 16:10:00 Test Item Value Reference Range Interpretation Comments ACTIVATED CLOTTING TIME 824 sec TEST ED AT [place] [address] ([facility]) (test code = [place] [address]) [id number] 16:10:00 Test Item Value Reference Range Interpretation Comments ACTIVATED CLOTTING TIME 918 sec TEST ED AT [place] [address] ([facility]) (test code = [place] [address]) [id number] SODIUM NA-STAT [id number] 15:34:00 Test Item Value Reference Range Interpretation Comments SODIUM (BEAKER) (test code = 381) 137 meq/L 135-148 POTASSIUM-STAT [id number] 15:34:00 Test Item Value Reference Range Interpretation Comments POTASSIUM (BEAKER) (test code = 4.4 meq/L 3.6-5.5 379) CALCIUM, [id number] 15:34:00 Test Item Value Reference Range Interpretation Comments CALCIUM IONIZED (BEAKER) (test 1.32 mmol/L 1.12-1.27 H code = 698) PH, BLOOD (BEAKER) (test code = 7.36 1810) BLOOD GAS, [id number] 15:34:00 Test Item Value Reference Range Interpretation Comments PH ARTERIAL (BEAKER) (test code = 7.36 7.35-7.45 383) PCO2 ARTERIAL (BEAKER) (test code 45 mmHg 35-45 = 384) PO2 ARTERIAL (BEAKER) (test code 391 mmHg 80-90 H = 385) O2 SATURATION ARTERIAL (BEAKER) 99.8 % 96.0-97.0 H (test code = 386) HCO3 ARTERIAL (BEAKER) (test code 25 mmol/L 21-29 = 388) BASE EXCESS ARTERIAL (BEAKER) -0.8 mmol/L -2.0-3.0 (test code = 387) PATIENT TEMPERATURE (BEAKER) 35.8 C (test code = 1818) FIO2 (BEAKER) (test code = 1819) 100.0 % GLUCOSE-STAT [id number] 15:34:00 Test Item Value Reference Range Interpretation Comments GLUCOSE RANDOM (BEAKER) (test code 118 mg/dL 70-110 H = 652) HGB/HCT (H&H) - STAT [id number] 15:34:00 Test Item Value Reference Range Interpretation Comments HEMOGLOBIN (BEAKER) (test code = 9.5 g/dL 13.0-16.8 L 410) HEMATOCRIT (BEAKER) (test code = 28.0 % 40.0-50.0 L 411) [id number] 14:28:00 Test Item Value Reference Range Interpretation Comments PARTIAL THROMBOPLASTIN TIME 28.3 seconds 22.5-36.0 (BEAKER) (test code = 760) [id number] 14:28:00 Test Item Value Reference Range Interpretation Comments FIBRINOGEN LEVEL (BEAKER) (test 187 mg/dl 225-434 L code = 658) PROTHROMBIN [id number] 14:27:00 Test Item Value Reference Range Interpretation Comments PROTIME (BEAKER) (test code = 17.5 seconds 11.7-14.7 H 759) INR (BEAKER) (test code = 370) 1.4 <=5.9 RECOMMENDED COUMADIN/WARFARIN INR THERAPY RANGESSTANDARD DOSE: 2.0 - 3.0 Includes: PROPHYLAXIS forvenous thrombosis, systemic embolization; TREATMENT for venous thrombosis and/or pulmonary embolus.HIGH RISK: Target INR is 2.5-3.5 for patients with mechanical heart valves.PLATELET [id number] 14:17:00 Test Item Value Reference Range Interpretation Comments PLATELET COUNT (BEAKER) (test 127 K/CU MM 150-450 L code = 756) BLOOD GAS, [id number] 14:13:00 Test Item Value Reference Range Interpretation Comments PH ARTERIAL (BEAKER) (test code = 7.34 7.35-7.45 L 383) PCO2 ARTERIAL (BEAKER) (test code 48 mmHg 35-45 H = 384) PO2 ARTERIAL (BEAKER) (test code 154 mmHg 80-90 H = 385) O2 SATURATION ARTERIAL (BEAKER) 98.9 % 96.0-97.0 H (test code = 386) HCO3 ARTERIAL (BEAKER) (test code 26 mmol/L 21-29 = 388) BASE EXCESS ARTERIAL (BEAKER) -0.7 mmol/L -2.0-3.0 (test code = 387) PATIENT TEMPERATURE (BEAKER) 35.8 C (test code = 1818) FIO2 (BEAKER) (test code = 1819) 100.0 % SODIUM NA-STAT [id number] 14:13:00 Test Item Value Reference Range Interpretation Comments SODIUM (BEAKER) (test code = 381) 132 meq/L 135-148 L GLUCOSE-STAT [id number] 14:13:00 Test Item Value Reference Range Interpretation Comments GLUCOSE RANDOM (BEAKER) (test code 170 mg/dL 70-110 H = 652) HGB/HCT (H&H) - STAT [id number] 14:13:00 Test Item Value Reference Range Interpretation Comments HEMOGLOBIN (BEAKER) (test code = 8.5 g/dL 13.0-16.8 L 410) HEMATOCRIT (BEAKER) (test code = 25.0 % 40.0-50.0 L 411) CALCIUM, [id number] 14:12:00 Test Item Value Reference Range Interpretation Comments CALCIUM IONIZED (BEAKER) (test 1.17 mmol/L 1.12-1.27 code = 698) PH, BLOOD (BEAKER) (test code = 7.32 1810) POTASSIUM-STAT [id number] 14:11:00 Test Item Value Reference Range Interpretation Comments POTASSIUM (BEAKER) (test code = 5.1 meq/L 3.6-5.5 379) POTASSIUM-STAT [id number] 13:31:00 Test Item Value Reference Range Interpretation Comments POTASSIUM (BEAKER) (test code = 6.8 meq/L 3.6-5.5 HH 379) BLOOD GAS, [id number] 13:29:00 Test Item Value Reference Range Interpretation Comments PH ARTERIAL (BEAKER) (test code = 7.38 7.35-7.45 383) PCO2 ARTERIAL (BEAKER) (test code 45 mmHg 35-45 = 384) PO2 ARTERIAL (BEAKER) (test code = 211 mmHg 80-90 H 385) O2 SATURATION ARTERIAL (BEAKER) 99.4 % 96.0-97.0 H (test code = 386) HCO3 ARTERIAL (BEAKER) (test code 27 mmol/L 21-29 = 388) BASE EXCESS ARTERIAL (BEAKER) 0.8 mmol/L -2.0-3.0 (test code = 387) PATIENT TEMPERATURE (BEAKER) (test 35.5 C code = 1818) FIO2 (BEAKER) (test code = 1819) 80.0 % SODIUM NA-STAT [id number] 13:29:00 Test Item Value Reference Range Interpretation Comments SODIUM (BEAKER) (test code = 381) 130 meq/L 135-148 L GLUCOSE-STAT [id number] 13:29:00 Test Item Value Reference Range Interpretation Comments GLUCOSE RANDOM (BEAKER) (test code 213 mg/dL 70-110 H = 652) HGB/HCT (H&H) - STAT [id number] 13:29:00 Test Item Value Reference Range Interpretation Comments HEMOGLOBIN (BEAKER) (test code = 7.8 g/dL 13.0-16.8 L 410) HEMATOCRIT (BEAKER) (test code = 23.0 % 40.0-50.0 L 411) BLOOD GAS, [id number] 13:07:00 Test Item Value Reference Range Interpretation Comments PH VENOUS (BEAKER) (test code = 7.48 7.32-7.42 H 701) PCO2 VENOUS (BEAKER) (test code = 35 mmHg 41-51 L 755) PO2 VENOUS (BEAKER) (test code = 27 mmHg 25-40 702) O2 SATURATION VENOUS (BEAKER) 83.3 % 40.0-70.0 H (test code = 703) HCO3 VENOUS (BEAKER) (test code = 28 mmol/L 21-29 705) BASE EXCESS VENOUS (BEAKER) (test 2.1 mmol/L -2.0-3.0 code = 704) PATIENT TEMPERATURE (BEAKER) (test 28.3 C code = 1818) FIO2 (BEAKER) (test code = 1819) 80.0 % BLOOD GAS, [id number] 13:06:00 Test Item Value Reference Range Interpretation Comments PH ARTERIAL (BEAKER) (test code = 7.53 7.35-7.45 H 383) PCO2 ARTERIAL (BEAKER) (test code 29 mmHg 35-45 L = 384) PO2 ARTERIAL (BEAKER) (test code = 386 mmHg 80-90 H 385) O2 SATURATION ARTERIAL (BEAKER) 99.8 % 96.0-97.0 H (test code = 386) HCO3 ARTERIAL (BEAKER) (test code 26 mmol/L 21-29 = 388) BASE EXCESS ARTERIAL (BEAKER) 1.0 mmol/L -2.0-3.0 (test code = 387) PATIENT TEMPERATURE (BEAKER) (test 28.3 C code = 1818) FIO2 (BEAKER) (test code = 1819) 80.0 % SODIUM NA-STAT [id number] 13:06:00 Test Item Value Reference Range Interpretation Comments SODIUM (BEAKER) (test code = 381) 131 meq/L 135-148 L GLUCOSE-STAT [id number] 13:06:00 Test Item Value Reference Range Interpretation Comments GLUCOSE RANDOM (BEAKER) (test code 121 mg/dL 70-110 H = 652) HGB/HCT (H&H) - STAT [id number] 13:06:00 Test Item Value Reference Range Interpretation Comments HEMOGLOBIN (BEAKER) (test code = 7.9 g/dL 13.0-16.8 L 410) HEMATOCRIT (BEAKER) (test code = 23.0 % 40.0-50.0 L 411) POTASSIUM-STAT [id number] 13:05:00 Test Item Value Reference Range Interpretation Comments POTASSIUM (BEAKER) (test code = 4.2 meq/L 3.6-5.5 379) BLOOD GAS, [id number] 11:02:00 Test Item Value Reference Range Interpretation Comments PH ARTERIAL (BEAKER) (test code = 7.45 7.35-7.45 383) PCO2 ARTERIAL (BEAKER) (test code 34 mmHg 35-45 L = 384) PO2 ARTERIAL (BEAKER) (test code 496 mmHg 80-90 H = 385) O2 SATURATION ARTERIAL (BEAKER) 99.9 % 96.0-97.0 H (test code = 386) HCO3 ARTERIAL (BEAKER) (test code 24 mmol/L 21-29 = 388) BASE EXCESS ARTERIAL (BEAKER) -0.3 mmol/L -2.0-3.0 (test code = 387) PATIENT TEMPERATURE (BEAKER) 35.3 C (test code = 1818) FIO2 (BEAKER) (test code = 1819) 90.0 % HGB/HCT (H&H) - STAT [id number] 11:02:00 Test Item Value Reference Range Interpretation Comments HEMOGLOBIN (BEAKER) (test code = 10.7 g/dL 13.0-16.8 L 410) HEMATOCRIT (BEAKER) (test code = 31.0 % 40.0-50.0 L 411) GLUCOSE-STAT [id number] 11:01:00 Test Item Value Reference Range Interpretation Comments GLUCOSE RANDOM (BEAKER) (test code 104 mg/dL 70-110 = 652) SODIUM NA-STAT [id number] 11:01:00 Test Item Value Reference Range Interpretation Comments SODIUM (BEAKER) (test code = 381) 137 meq/L 135-148 POTASSIUM-STAT [id number] 11:01:00 Test Item Value Reference Range Interpretation Comments POTASSIUM (BEAKER) (test code = 3.6 meq/L 3.6-5.5 379) POCT-GLUCOSE [id number] 08:43:00 Test Item Value Reference Range Interpretation Comments POC-GLUCOSE METER 99 mg/dL 70-[address] [facility] 67 (BEAKER) (test code = GRAYRONALD Denny [facility] [address] 1538) HEMOGLOBIN [id number] 13:25:00 Test Item Value Reference Range Interpretation Comments HEMOGLOBIN A1C (BEAKER) (test code = 5.5 % 4.3-6.1 368) [id number] 12:54:00 Test Item Value Reference Range Interpretation Comments MAGNESIUM (BEAKER) (test code = 2.0 mg/dL 1.6-2.6 627) COMPREHENSIVE METABOLIC [id number] 12:54:00 Test Item Value Reference Range Interpretation Comments TOTAL PROTEIN 7.3 gm/dL 6.0-8.3 (BEAKER) (test code = 770) ALBUMIN (BEAKER) 4.3 g/dL 3.5-5.0 (test code = 1145) ALKALINE PHOSPHATASE 85 U/L 40-150 (BEAKER) (test code = 346) BILIRUBIN TOTAL 0.6 mg/dL 0.2-1.2 (BEAKER) (test code = 377) SODIUM (BEAKER) (test 137 meq/L 136-145 code = 381) POTASSIUM (BEAKER) 4.3 meq/L 3.5-5.1 (test code = 379) CHLORIDE (BEAKER) 105 meq/L 98-107 (test code = 382) CO2 (BEAKER) (test 25 meq/L 22-29 code = 355) BLOOD UREA NITROGEN 15 mg/dL 7-21 (BEAKER) (test code = 354) CREATININE (BEAKER) 1.10 mg/dL 0.57-1.25 (test code = 358) GLUCOSE RANDOM 113 mg/dL 70-105 H (BEAKER) (test code = 652) CALCIUM (BEAKER) 9.2 mg/dL 8.4-10.2 (test code = 697) AST (SGOT) (BEAKER) 17 U/L 5-34 (test code = 353) ALT (SGPT) (BEAKER) 17 U/L 6-55 (test code = 347) EGFR (BEAKER) (test 66 mL/min/1.73 ESTIMA BRE GFR IS code = 1092) sq m NOT ACCURATE CREATININE CLEARANCE IN PREDICTING GLOMERULAR FILTRATION RATE . ESTIMATED GFR I S NOT APPLICABLE FOR DIALYSIS PATIEN TS. LIPID [id number] 12:54:00 Test Item Value Reference Range Interpretation Comments TRIGLYCERIDES (BEAKER) (test code = 138 mg/dL 540) CHOLESTEROL (BEAKER) (test code = 167 mg/dL 631) HDL CHOLESTEROL (BEAKER) (test code 36 mg/dL = 976) LDL CHOLESTEROL CALCULATED (BEAKER) 103 mg/dL (test code = 633) Triglyceride Reference Range: Low Risk <150 Borderline 150-199 High Risk 200-499 Very High Risk >=500Cholesterol Reference Range: Low Risk <200 Borderline 200-239 High Risk >240HDL Cholesterol Reference Range: Low Risk >=60 High Risk <40LDL Cholesterol Reference Range: Optimal <100 Near Optimal 100-129 Borderline 130-159 High 160-189 Very High >=[id number] 12:48:00 Test Item Value Reference Range Interpretation Comments PARTIAL THROMBOPLASTIN TIME 34.6 seconds 22.5-36.0 (BEAKER) (test code = 760) PROTHROMBIN [id number] 12:47:00 Test Item Value Reference Range Interpretation Comments PROTIME (BEAKER) (test code = 13.5 seconds 11.7-14.7 759) INR (BEAKER) (test code = 370) 1.0 <=5.9 RECOMMENDED COUMADIN/WARFARIN INR THERAPY RANGESSTANDARD DOSE: 2.0 - 3.0 Includes: PROPHYLAXIS forvenous thrombosis, systemic embolization; TREATMENT for venous thrombosis and/or pulmonary embolus.HIGH RISK: Target INR is 2.5-3.5 for patients with mechanical heart valves.CBC W/PLT COUNT & AUTO DIFFERENTIAL 2018-05-29 12:39:00 Test Item Value Reference Range Interpretation Comments WHITE BLOOD CELL COUNT (BEAKER) 7.1 K/ L 3.5-10.5 (test code = 775) RED BLOOD CELL COUNT (BEAKER) 3.15 M/ L 4.63-6.08 L (test code = 761) HEMOGLOBIN (BEAKER) (test code = 10.6 GM/DL 13.7-17.5 L 410) HEMATOCRIT (BEAKER) (test code = 32.7 % 40.1-51.0 L 411) MEAN CORPUSCULAR VOLUME (BEAKER) 103.8 fL 79.0-92.2 H (test code = 753) MEAN CORPUSCULAR HEMOGLOBIN 33.7 pg 25.7-32.2 H (BEAKER) (test code = 751) MEAN CORPUSCULAR HEMOGLOBIN CONC 32.4 GM/DL 32.3-36.5 (BEAKER) (test code = 752) RED CELL DISTRIBUTION WIDTH 14.8 % 11.6-14.4 H (BEAKER) (test code = 412) PLATELET COUNT (BEAKER) (test code 58 K/CU MM 150-450 L = 756) MEAN PLATELET VOLUME (BEAKER) 9.3 fL 9.4-12.4 L (test code = 754) NUCLEATED RED BLOOD CELLS (BEAKER) 0 /100 WBC 0-0 (test code = 413) NEUTROPHILS RELATIVE PERCENT 67 % (BEAKER) (test code = 429) LYMPHOCYTES RELATIVE PERCENT 12 % (BEAKER) (test code = 430) MONOCYTES RELATIVE PERCENT 14 % (BEAKER) (test code = 431) EOSINOPHILS RELATIVE PERCENT 5 % (BEAKER) (test code = 432) BASOPHILS RELATIVE PERCENT 0 % (BEAKER) (test code = 437) NEUTROPHILS ABSOLUTE COUNT 4.77 K/ L 1.78-5.38 (BEAKER) (test code = 670) LYMPHOCYTES ABSOLUTE COUNT 0.85 K/ L 1.32-3.57 L (BEAKER) (test code = 414) MONOCYTES ABSOLUTE COUNT (BEAKER) 0.97 K/ L 0.30-0.82 H (test code = 415) EOSINOPHILS ABSOLUTE COUNT 0.37 K/ L 0.04-0.54 (BEAKER) (test code = 416) BASOPHILS ABSOLUTE COUNT (BEAKER) 0.03 K/ L 0.01-0.08 (test code = 417) IMMATURE GRANULOCYTES-RELATIVE 1 % 0-1 PERCENT (BEAKER) (test code = 2801) CBC W/PLT COUNT & AUTO [id number] 07:06:00 Test Item Value Reference Range Interpretation Comments WHITE BLOOD CELL COUNT (BEAKER) 8.0 K/ L 3.5-10.5 (test code = 775) RED BLOOD CELL COUNT (BEAKER) 2.65 M/ L 4.63-6.08 L (test code = 761) HEMOGLOBIN (BEAKER) (test code = 9.0 GM/DL 13.7-17.5 L 410) HEMATOCRIT (BEAKER) (test code = 28.0 % 40.1-51.0 L 411) MEAN CORPUSCULAR VOLUME (BEAKER) 105.7 fL 79.0-92.2 H (test code = 753) MEAN CORPUSCULAR HEMOGLOBIN 34.0 pg 25.7-32.2 H (BEAKER) (test code = 751) MEAN CORPUSCULAR HEMOGLOBIN CONC 32.1 GM/DL 32.3-36.5 L (BEAKER) (test code = 752) RED CELL DISTRIBUTION WIDTH 15.1 % 11.6-14.4 H (BEAKER) (test code = 412) PLATELET COUNT (BEAKER) (test code 83 K/CU MM 150-450 L = 756) MEAN PLATELET VOLUME (BEAKER) 10.0 fL 9.4-12.4 (test code = 754) NUCLEATED RED BLOOD CELLS (BEAKER) 0 /100 WBC 0-0 (test code = 413) (CELLAVISION MANUAL DIFF)[id number] 07:06:00 Test Item Value Reference Range Interpretation Comments NEUTROPHILS - REL 62 % (CELLAVISION)(BEAKER) (test code = 2816) LYMPHOCYTES - REL 14 % (CELLAVISION)(BEAKER) (test code = 2817) MONOCYTES - REL 15 % (CELLAVISION)(BEAKER) (test code = 2818) EOSINOPHILS - REL 2 % (CELLAVISION)(BEAKER) (test code = 2819) BASOPHILS - REL 1 % (CELLAVISION)(BEAKER) (test code = 2820) BANDS - REL (CELLAVISION)(BEAKER) 3 % 0-10 (test code = 2826) ATYPICAL LYMPHOCYTES - REL 3 % 0-0 H (CELLAVISION)(BEAKER) (test code = 2829) NEUTROPHILS - ABS 4.96 K/ul 1.78-5.38 (CELLAVISION)(BEAKER) (test code = 2830) LYMPHOCYTES - ABS 1.12 K/ul 1.32-3.57 L (CELLAVISION)(BEAKER) (test code = 2831) MONOCYTES - ABS 1.20 K/uL 0.30-0.82 H (CELLAVISION)(BEAKER) (test code = 2832) EOSINOPHILS - ABS 0.16 K/uL 0.04-0.54 (CELLAVISION)(BEAKER) (test code = 2834) BASOPHILS - ABS 0.08 K/uL 0.01-0.08 (CELLAVISION)(BEAKER) (test code = 2835) BANDS - ABS (CELLAVISION)(BEAKER) 0.24 K/uL 0.00-0.80 (test code = 2840) ATYPICAL LYMPHOCYTES - ABS 0.24 K/uL 0.00-0.00 H (CELLAVISION)(BEAKER) (test code = 8468) TOTAL COUNTED (BEAKER) (test code = 100 1351) WBC MORPHOLOGY (BEAKER) (test code Normal = 487) PLT MORPHOLOGY (BEAKER) (test code Normal = 486) POLYCHROMATOPHILLIC RBCS(BEAKER) 1+ few (test code = 478) ARTIFACT (CELLAVISION)(BEAKER) Present (test code = 3432) PLATELET CONCENTRATION Decreased (CELLAVISION)(BEAKER) (test code = 3438) Received comment: User comments: Slide comments:[id number] 06:09:00 Test Item Value Reference Range Interpretation Comments MAGNESIUM (BEAKER) (test code = 2.2 mg/dL 1.6-2.6 627) BASIC METABOLIC [id number] 06:09:00 Test Item Value Reference Range Interpretation Comments SODIUM (BEAKER) 141 meq/L 136-145 (test code = 381) POTASSIUM (BEAKER) 4.0 meq/L 3.5-5.1 (test code = 379) CHLORIDE (BEAKER) 110 meq/L 98-107 H (test code = 382) CO2 (BEAKER) (test 26 meq/L 22-29 code = 355) BLOOD UREA NITROGEN 13 mg/dL 7-21 (BEAKER) (test code = 354) CREATININE (BEAKER) 0.98 mg/dL 0.57-1.25 (test code = 358) GLUCOSE RANDOM 96 mg/dL 70-105 (BEAKER) (test code = 652) CALCIUM (BEAKER) 9.0 mg/dL 8.4-10.2 (test code = 697) EGFR (BEAKER) (test 75 mL/min/1.73 ESTIMA BRE GFR IS code = 1092) sq m NOT ACCURATE CREATININE CLEARANCE IN PREDICTING GLOMERULAR FILTRATION RATE . ESTIMATED GFR I S NOT APPLICABLE FOR DIALYSIS PATIEN TS. POCT-GLUCOSE [id number] 10:41:00 Test Item Value Reference Range Interpretation Comments POC-GLUCOSE METER 135 mg/dL 70-[address] [facility] 67[address] (BEAKER) (test code = [place] 1538) [id number] RAD, CHEST, 1 VIEW, NON [id number] 05:01:00Reason for exam:->excessive coughingFINAL REPORT RAD, CHEST, 1 VIEW, NON DEPT INDICATION: excessive coughing COMPARISON: Prior day's exam FINDINGS: Portable frontal view of the chest. IMPRESSION: Support Lines: Stable. Lungs and pleura: The lungs are clear. No pleural effusion. No pneumothorax.Heart and mediastinum: Stable contours. Additional findings: None. Signed: Jeanie Corona Verified Date/Time: 05/14/2018 05:01:57 Reading Location: [address] Transitional Reading Room CALCIUM, [id number] 04:16:00 Test Item Value Reference Range Interpretation Comments CALCIUM IONIZED (BEAKER) (test 1.11 mmol/L 1.12-1.27 L code = 698) PH, BLOOD (BEAKER) (test code = 7.40 1810) [id number] 04:16:00 Test Item Value Reference Range Interpretation Comments MAGNESIUM (BEAKER) (test code = 2.2 mg/dL 1.6-2.6 627) BASIC METABOLIC [id number] 04:16:00 Test Item Value Reference Range Interpretation Comments SODIUM (BEAKER) 139 meq/L 136-145 (test code = 381) POTASSIUM (BEAKER) 3.8 meq/L 3.5-5.1 (test code = 379) CHLORIDE (BEAKER) 112 meq/L 98-107 H (test code = 382) CO2 (BEAKER) (test 18 meq/L 22-29 L code = 355) BLOOD UREA NITROGEN 12 mg/dL 7-21 (BEAKER) (test code = 354) CREATININE (BEAKER) 0.83 mg/dL 0.57-1.25 (test code = 358) GLUCOSE RANDOM 115 mg/dL 70-105 H (BEAKER) (test code = 652) CALCIUM (BEAKER) 8.3 mg/dL 8.4-10.2 L (test code = 697) EGFR (BEAKER) (test 91 mL/min/1.73 ESTIMA BRE GFR IS code = 1092) sq m NOT ACCURATE CREATININE CLEARANCE IN PREDICTING GLOMERULAR FILTRATION RATE . ESTIMATED GFR I S NOT APPLICABLE FOR DIALYSIS PATIEN TS. BLOOD GAS, [id number] 04:15:00 Test Item Value Reference Range Interpretation Comments PH ARTERIAL (BEAKER) (test code = 7.41 7.35-7.45 383) PCO2 ARTERIAL (BEAKER) (test code 35 mmHg 35-45 = 384) PO2 ARTERIAL (BEAKER) (test code 89 mmHg 80-90 = 385) O2 SATURATION ARTERIAL (BEAKER) 97.1 % 96.0-97.0 H (test code = 386) HCO3 ARTERIAL (BEAKER) (test code 21 mmol/L 21-29 = 388) BASE EXCESS ARTERIAL (BEAKER) -3.0 mmol/L -2.0-3.0 L (test code = 387) PATIENT TEMPERATURE (BEAKER) 36.6 C (test code = 1818) FIO2 (BEAKER) (test code = 1819) 21.0 % CBC W/PLT COUNT & AUTO [id number] 03:49:00 Test Item Value Reference Range Interpretation Comments WHITE BLOOD CELL COUNT (BEAKER) 10.8 K/ L 3.5-10.5 H (test code = 775) RED BLOOD CELL COUNT (BEAKER) 2.66 M/ L 4.63-6.08 L (test code = 761) HEMOGLOBIN (BEAKER) (test code = 9.3 GM/DL 13.7-17.5 L 410) HEMATOCRIT (BEAKER) (test code = 27.4 % 40.1-51.0 L 411) MEAN CORPUSCULAR VOLUME (BEAKER) 103.0 fL 79.0-92.2 H (test code = 753) MEAN CORPUSCULAR HEMOGLOBIN 35.0 pg 25.7-32.2 H (BEAKER) (test code = 751) MEAN CORPUSCULAR HEMOGLOBIN CONC 33.9 GM/DL 32.3-36.5 (BEAKER) (test code = 752) RED CELL DISTRIBUTION WIDTH 14.8 % 11.6-14.4 H (BEAKER) (test code = 412) PLATELET COUNT (BEAKER) (test code 94 K/CU MM 150-450 L = 756) MEAN PLATELET VOLUME (BEAKER) 8.9 fL 9.4-12.4 L (test code = 754) NUCLEATED RED BLOOD CELLS (BEAKER) 0 /100 WBC 0-0 (test code = 413) NEUTROPHILS RELATIVE PERCENT 77 % (BEAKER) (test code = 429) LYMPHOCYTES RELATIVE PERCENT 7 % (BEAKER) (test code = 430) MONOCYTES RELATIVE PERCENT 15 % (BEAKER) (test code = 431) EOSINOPHILS RELATIVE PERCENT 0 % (BEAKER) (test code = 432) BASOPHILS RELATIVE PERCENT 0 % (BEAKER) (test code = 437) NEUTROPHILS ABSOLUTE COUNT 8.31 K/ L 1.78-5.38 H (BEAKER) (test code = 670) LYMPHOCYTES ABSOLUTE COUNT 0.78 K/ L 1.32-3.57 L (BEAKER) (test code = 414) MONOCYTES ABSOLUTE COUNT (BEAKER) 1.60 K/ L 0.30-0.82 H (test code = 415) EOSINOPHILS ABSOLUTE COUNT 0.03 K/ L 0.04-0.54 L (BEAKER) (test code = 416) BASOPHILS ABSOLUTE COUNT (BEAKER) 0.01 K/ L 0.01-0.08 (test code = 417) IMMATURE GRANULOCYTES-RELATIVE 1 % 0-1 PERCENT (BEAKER) (test code = 2801) SODIUM NA-STAT [id number] 23:50:00 Test Item Value Reference Range Interpretation Comments SODIUM (BEAKER) (test code = 381) 140 meq/L 135-148 POTASSIUM-STAT [id number] 23:50:00 Test Item Value Reference Range Interpretation Comments POTASSIUM (BEAKER) (test code = 3.8 meq/L 3.6-5.5 379) BLOOD GAS, [id number] 23:50:00 Test Item Value Reference Range Interpretation Comments PH ARTERIAL (BEAKER) (test code = 7.40 7.35-7.45 383) PCO2 ARTERIAL (BEAKER) (test code 35 mmHg 35-45 = 384) PO2 ARTERIAL (BEAKER) (test code 101 mmHg 80-90 H = 385) O2 SATURATION ARTERIAL (BEAKER) 97.7 % 96.0-97.0 H (test code = 386) HCO3 ARTERIAL (BEAKER) (test code 21 mmol/L 21-29 = 388) BASE EXCESS ARTERIAL (BEAKER) -3.1 mmol/L -2.0-3.0 L (test code = 387) PATIENT TEMPERATURE (BEAKER) 37.0 C (test code = 1818) FIO2 (BEAKER) (test code = 1819) 21.0 % GLUCOSE-STAT [id number] 23:50:00 Test Item Value Reference Range Interpretation Comments GLUCOSE RANDOM (BEAKER) (test code 120 mg/dL 70-110 H = 652) HGB/HCT (H&H) - STAT [id number] 23:50:00 Test Item Value Reference Range Interpretation Comments HEMOGLOBIN (BEAKER) (test code = 10.2 g/dL 13.0-16.8 L 410) HEMATOCRIT (BEAKER) (test code = 30.0 % 40.0-50.0 L 411) RAD, CHEST, 1 VIEW, NON [id number] 22:51:00Reason for exam:->central line placementFINAL REPORT Chest, 1 view. History: Central line placement. Comparison: None available. Impression: Right IJ central venous catheter with tip overlying the SVC. Prominent pulmonary vascular markings consistent with pulmonary vascular congestion and interstitial pulmonary edema. Cardiomediastinal silhouette is at the upper limits of normal. No pleural effusion or pneumothorax. No lobar consolidation. The soft tissues and osseous structures are intact. Signed: Jeanie Corona MDReport Verified Date/Time: 05/13/2018 22:51:08 Reading Location: [address] Transitional Reading Room [id number] 19:40:00 Test Item Value Reference Range Interpretation Comments PHOSPHORUS (BEAKER) (test code = 3.0 mg/dL 2.3-4.7 604) [id number] 19:40:00 Test Item Value Reference Range Interpretation Comments MAGNESIUM (BEAKER) (test code = 1.6 mg/dL 1.6-2.6 627) BASIC METABOLIC [id number] 19:40:00 Test Item Value Reference Range Interpretation Comments SODIUM (BEAKER) 139 meq/L 136-145 (test code = 381) POTASSIUM (BEAKER) 3.8 meq/L 3.5-5.1 (test code = 379) CHLORIDE (BEAKER) 112 meq/L 98-107 H (test code = 382) CO2 (BEAKER) (test 21 meq/L 22-29 L code = 355) BLOOD UREA NITROGEN 14 mg/dL 7-21 (BEAKER) (test code = 354) CREATININE (BEAKER) 0.83 mg/dL 0.57-1.25 (test code = 358) GLUCOSE RANDOM 134 mg/dL 70-105 H (BEAKER) (test code = 652) CALCIUM (BEAKER) 8.0 mg/dL 8.4-10.2 L (test code = 697) EGFR (BEAKER) (test 91 mL/min/1.73 ESTIMA BRE GFR IS code = 1092) sq m NOT ACCURATE CREATININE CLEARANCE IN PREDICTING GLOMERULAR FILTRATION RATE . ESTIMATED GFR I S NOT APPLICABLE FOR DIALYSIS PATIEN TS. HEPATIC FUNCTION [id number] 19:40:00 Test Item Value Reference Range Interpretation Comments TOTAL PROTEIN (BEAKER) (test code = 5.7 gm/dL 6.0-8.3 L 770) ALBUMIN (BEAKER) (test code = 1145) 3.6 g/dL 3.5-5.0 BILIRUBIN TOTAL (BEAKER) (test code 1.0 mg/dL 0.2-1.2 = 377) BILIRUBIN DIRECT (BEAKER) (test 0.4 mg/dL 0.1-0.5 code = 706) ALKALINE PHOSPHATASE (BEAKER) (test 57 U/L 40-150 code = 346) AST (SGOT) (BEAKER) (test code = 13 U/L 5-34 353) ALT (SGPT) (BEAKER) (test code = 12 U/L 6-55 347) LACTIC ACID, ARTERIAL, WHOLE [id number] 19:36:00 Test Item Value Reference Range Interpretation Comments LACTATE BLOOD ARTERIAL (2) 1.2 mmol/L 0.5-2.2 (BEAKER) (test code = 2874) PROTHROMBIN [id number] 19:25:00 Test Item Value Reference Range Interpretation Comments PROTIME (BEAKER) (test code = 15.1 seconds 11.7-14.7 H 759) INR (BEAKER) (test code = 370) 1.2 <=5.9 RECOMMENDED COUMADIN/WARFARIN INR THERAPY RANGESSTANDARD DOSE: 2.0 - 3.0 Includes: PROPHYLAXIS forvenous thrombosis, systemic embolization; TREATMENT for venous thrombosis and/or pulmonary embolus.HIGH RISK: Target INR is 2.5-3.5 for patients with mechanical heart valves.[id number] 19:25:00 Test Item Value Reference Range Interpretation Comments PROTIME (BEAKER) (test code = 15.1 seconds 11.7-14.7 H 759) INR (BEAKER) (test code = 370) 1.2 <=5.9 PARTIAL THROMBOPLASTIN TIME 33.8 seconds 22.5-36.0 (BEAKER) (test code = 760) RECOMMENDED COUMADIN/WARFARIN INR THERAPY RANGESSTANDARD DOSE: 2.0 - 3.0 Includes: PROPHYLAXIS forvenous thrombosis, systemic embolization; TREATMENT for venous thrombosis and/or pulmonary embolus.HIGH RISK: Target INR is 2.5-3.5 for patients with mechanical heart valves.CBC W/PLT COUNT & AUTO DIFFERENTIAL 2018-05-13 19:15:00 Test Item Value Reference Range Interpretation Comments WHITE BLOOD CELL COUNT (BEAKER) 17.6 K/ L 3.5-10.5 H (test code = 775) RED BLOOD CELL COUNT (BEAKER) 2.69 M/ L 4.63-6.08 L (test code = 761) HEMOGLOBIN (BEAKER) (test code = 9.1 GM/DL 13.7-17.5 L 410) HEMATOCRIT (BEAKER) (test code = 27.9 % 40.1-51.0 L 411) MEAN CORPUSCULAR VOLUME (BEAKER) 103.7 fL 79.0-92.2 H (test code = 753) MEAN CORPUSCULAR HEMOGLOBIN 33.8 pg 25.7-32.2 H (BEAKER) (test code = 751) MEAN CORPUSCULAR HEMOGLOBIN CONC 32.6 GM/DL 32.3-36.5 (BEAKER) (test code = 752) RED CELL DISTRIBUTION WIDTH 15.1 % 11.6-14.4 H (BEAKER) (test code = 412) PLATELET COUNT (BEAKER) (test 112 K/CU MM 150-450 L code = 756) MEAN PLATELET VOLUME (BEAKER) 9.4 fL 9.4-12.4 (test code = 754) NUCLEATED RED BLOOD CELLS 0 /100 WBC 0-0 (BEAKER) (test code = 413) NEUTROPHILS RELATIVE PERCENT 89 % (BEAKER) (test code = 429) LYMPHOCYTES RELATIVE PERCENT 3 % (BEAKER) (test code = 430) MONOCYTES RELATIVE PERCENT 5 % (BEAKER) (test code = 431) EOSINOPHILS RELATIVE PERCENT 1 % (BEAKER) (test code = 432) BASOPHILS RELATIVE PERCENT 0 % (BEAKER) (test code = 437) NEUTROPHILS ABSOLUTE COUNT 15.73 K/ L 1.78-5.38 H (BEAKER) (test code = 670) LYMPHOCYTES ABSOLUTE COUNT 0.60 K/ L 1.32-3.57 L (BEAKER) (test code = 414) MONOCYTES ABSOLUTE COUNT (BEAKER) 0.96 K/ L 0.30-0.82 H (test code = 415) EOSINOPHILS ABSOLUTE COUNT 0.14 K/ L 0.04-0.54 (BEAKER) (test code = 416) BASOPHILS ABSOLUTE COUNT (BEAKER) 0.03 K/ L 0.01-0.08 (test code = 417) IMMATURE GRANULOCYTES-RELATIVE 1 % 0-1 PERCENT (BEAKER) (test code = 2801) BLOOD GAS, [id number] 19:12:00 Test Item Value Reference Range Interpretation Comments PH ARTERIAL (BEAKER) (test code = 7.40 7.35-7.45 383) PCO2 ARTERIAL (BEAKER) (test code 34 mmHg 35-45 L = 384) PO2 ARTERIAL (BEAKER) (test code 96 mmHg 80-90 H = 385) O2 SATURATION ARTERIAL (BEAKER) 97.3 % 96.0-97.0 H (test code = 386) HCO3 ARTERIAL (BEAKER) (test code 20 mmol/L 21-29 L = 388) BASE EXCESS ARTERIAL (BEAKER) -3.8 mmol/L -2.0-3.0 L (test code = 387) PATIENT TEMPERATURE (BEAKER) 37.3 C (test code = 1818) FIO2 (BEAKER) (test code = 1819) 33.0 % CALCIUM, [id number] 19:12:00 Test Item Value Reference Range Interpretation Comments CALCIUM IONIZED (BEAKER) (test 1.04 mmol/L 1.12-1.27 L code = 698) PH, BLOOD (BEAKER) (test code = 7.40 1810) GLUCOSE-STAT [id number] 19:12:00 Test Item Value Reference Range Interpretation Comments GLUCOSE RANDOM (BEAKER) (test code 135 mg/dL 70-110 H = 652) HGB/HCT (H&H) - STAT [id number] 19:12:00 Test Item Value Reference Range Interpretation Comments HEMOGLOBIN (BEAKER) (test code = 10.7 g/dL 13.0-16.8 L 410) HEMATOCRIT (BEAKER) (test code = 31.0 % 40.0-50.0 L 411) SODIUM NA-STAT [id number] 19:11:00 Test Item Value Reference Range Interpretation Comments SODIUM (BEAKER) (test code = 381) 137 meq/L 135-148 POTASSIUM-STAT [id number] 19:11:00 Test Item Value Reference Range Interpretation Comments POTASSIUM (BEAKER) (test code = 3.7 meq/L 3.6-5.5 379) [id number] 18:24:00 Test Item Value Reference Range Interpretation Comments ACTIVATED CLOTTING TIME 246 sec TEST ED AT [place] [address] [facility] (test code = [place] [address]) [id number] 18:24:00 Test Item Value Reference Range Interpretation Comments ACTIVATED CLOTTING TIME 175 sec TEST ED AT [place] [address] ([facility]) (test code = [place] [address]) [id number] BASIC METABOLIC [id number] 16:10:00 Test Item Value Reference Range Interpretation Comments SODIUM (BEAKER) 141 meq/L 136-145 (test code = 381) POTASSIUM (BEAKER) 4.1 meq/L 3.5-5.1 (test code = 379) CHLORIDE (BEAKER) 106 meq/L 98-107 (test code = 382) CO2 (BEAKER) (test 26 meq/L 22-29 code = 355) BLOOD UREA NITROGEN 13 mg/dL 7-21 (BEAKER) (test code = 354) CREATININE (BEAKER) 1.03 mg/dL 0.57-1.25 (test code = 358) GLUCOSE RANDOM 90 mg/dL 70-105 (BEAKER) (test code = 652) CALCIUM (BEAKER) 9.9 mg/dL 8.4-10.2 (test code = 697) EGFR (BEAKER) (test 71 mL/min/1.73 ESTIMA BRE GFR IS code = 1092) sq m NOT ACCURATE CREATININE CLEARANCE IN PREDICTING GLOMERULAR FILTRATION RATE . ESTIMATED GFR I S NOT APPLICABLE FOR DIALYSIS PATIEN TS. [id number] 16:04:00 Test Item Value Reference Range Interpretation Comments PARTIAL THROMBOPLASTIN TIME 34.2 seconds 22.5-36.0 (BEAKER) (test code = 760) PROTHROMBIN [id number] 16:03:00 Test Item Value Reference Range Interpretation Comments PROTIME (BEAKER) (test code = 13.2 seconds 11.7-14.7 759) INR (BEAKER) (test code = 370) 1.0 <=5.9 RECOMMENDED COUMADIN/WARFARIN INR THERAPY RANGESSTANDARD DOSE: 2.0 - 3.0 Includes: PROPHYLAXIS forvenous thrombosis, systemic embolization; TREATMENT for venous thrombosis and/or pulmonary embolus.HIGH RISK: Target INR is 2.5-3.5 for patients with mechanical heart valves.CBC W/PLT COUNT & AUTO DIFFERENTIAL 2018-05-08 15:54:00 Test Item Value Reference Range Interpretation Comments WHITE BLOOD CELL COUNT (BEAKER) 6.4 K/ L 3.5-10.5 (test code = 775) RED BLOOD CELL COUNT (BEAKER) 3.69 M/ L 4.63-6.08 L (test code = 761) HEMOGLOBIN (BEAKER) (test code = 12.3 GM/DL 13.7-17.5 L 410) HEMATOCRIT (BEAKER) (test code = 38.3 % 40.1-51.0 L 411) MEAN CORPUSCULAR VOLUME (BEAKER) 103.8 fL 79.0-92.2 H (test code = 753) MEAN CORPUSCULAR HEMOGLOBIN 33.3 pg 25.7-32.2 H (BEAKER) (test code = 751) MEAN CORPUSCULAR HEMOGLOBIN CONC 32.1 GM/DL 32.3-36.5 L (BEAKER) (test code = 752) RED CELL DISTRIBUTION WIDTH 14.8 % 11.6-14.4 H (BEAKER) (test code = 412) PLATELET COUNT (BEAKER) (test code 56 K/CU MM 150-450 L = 756) MEAN PLATELET VOLUME (BEAKER) 9.1 fL 9.4-12.4 L (test code = 754) NUCLEATED RED BLOOD CELLS (BEAKER) 0 /100 WBC 0-0 (test code = 413) NEUTROPHILS RELATIVE PERCENT 64 % (BEAKER) (test code = 429) LYMPHOCYTES RELATIVE PERCENT 14 % (BEAKER) (test code = 430) MONOCYTES RELATIVE PERCENT 15 % (BEAKER) (test code = 431) EOSINOPHILS RELATIVE PERCENT 5 % (BEAKER) (test code = 432) BASOPHILS RELATIVE PERCENT 0 % (BEAKER) (test code = 437) NEUTROPHILS ABSOLUTE COUNT 4.09 K/ L 1.78-5.38 (BEAKER) (test code = 670) LYMPHOCYTES ABSOLUTE COUNT 0.91 K/ L 1.32-3.57 L (BEAKER) (test code = 414) MONOCYTES ABSOLUTE COUNT (BEAKER) 0.96 K/ L 0.30-0.82 H (test code = 415) EOSINOPHILS ABSOLUTE COUNT 0.32 K/ L 0.04-0.54 (BEAKER) (test code = 416) BASOPHILS ABSOLUTE COUNT (BEAKER) 0.02 K/ L 0.01-0.08 (test code = 417) IMMATURE GRANULOCYTES-RELATIVE 1 % 0-1 PERCENT (BEAKER) (test code = 2801) XR Chest 1 View [id number] 07:45:24Patient: ALIA WHALEY Jr Date/Time05/02/2018 07:40 CSTReason for ExamChest painReportHISTORY: Chest painLocation code: W51PFAL: CHEST X- RAY, ONE VIEWCOMPARISON: NoneCOMMENT: Frontal view of the chest is provided. Lungs are hyperinflated suggesting some COPD. No focal infiltrate, consolidation, mass lesion, or effusion is seen. Cardiac silhouette is within normal limits. No acute bony abnormalities.IMPRESSION: COPD. No acute infiltrate. Final Dictated by: Dionne Horn LDictated DT/TM: 05/02/2018 7:44 amSigned by: Dionne Horn LSigned (Electronic Signature): 05/02/2018 7:45 amLipid [id number] 19:23:00 Test Item Value Reference Range Interpretation Comments Cholesterol (test 148 mg/dL 0-200 N code = CHOL) Triglycerides (test 123 mg/dL 9-200 N code = TRIG) HDL (test code = 41 mg/dL 40-60 N HDL) Chol/HDL (test code 3.6 Ratio 0.0-5.0 N = CHOLPHDL) LDL, Calculated 82 mg/dL 0-130 N (NOTE)RISK O F HEART (test code = LDLC) DISEASEPu blished by [place] Heart AssociationAnal yte Optim al Boderline Increased RiskC HOL <200 200-239 >240TRI G <150 150-199 >200HDL Male: >60 <40HDL Female: >60 <50 LDL < 100 130-15 9 >160 LDL NEAR OPTIMAL IS 100- 129 VLDL (test code = 25 mg/dL 5-40 N VLDL) LDL/HDL (test code = 2 LDLPHDL)
[2020-03-17] MEDS ORDERED: NA CHLORIDE 0.9% 250 ML ONE (10:17)
[2020-03-17 13:11] LABS: MPV 8.1 fL (7.6-11.3)
[2020-03-17 14:05] LABS: Platelet Estimate DECR
[2020-03-17 15:20] VITALS: BMI 24.0
[2020-03-17 15:49] VITALS: BP 145/58; TEMP 97.2; O2SAT 100
== END 2020-03-17 13:06 | disposition home or self-care (01) ==
LOC: DS 09:50
PROVIDERS: ATTEND Internal Medicine Medical Oncology
DX: D69.6 Thrombocytopenia, unspecified (principal)
CPT/HCPCS: 36415; 86900; 85049; 86901; 36430; P9035; J7050; 96365

== ENCOUNTER 2020-03-29 07:18 | Day surgery (SDC) | payer OTHER, MEDICARE ==
[2020-03-28 07:49] LABS: Absolute Lymphocytes (CBC) 0.5 K/uL (0.7-4.9); Basophils % 0.3 % (0-1.3); Hematocrit 26.4 % (39.6-49.0); Lymphocytes % 47.3 % (15.3-44.8); MPV 8.3 fL (7.6-11.3); RBC Red Blood Cell Count 2.63 M/uL (4.33-5.43)
[2020-03-28 08:08] LABS: Bilirubin Total 0.4 mg/dL (0.2-1.0); Protein, Total 7.2 g/dL (6.4-8.2)
[2020-03-28 09:17] LABS: Blood Morphology Comment NOTED (NOT SEEN); Platelet Estimate DECR; White Blood Cell Scan OK (OK)
--- OUTSIDE RECORDS SUMMARY | 2020-03-29 07:20 | XMS REPORT | Clinical Summary ---
:1945 Author Organization [facility] Address [address] [place] [address] Care Team Providers Name Role Phone Matthew [...] Orders Only Cardiology Che Mooney MD after 03/29/2019 Family History Medical History Relation Name Comments [...] Comments Blood Pressure 139/63 04/10/2019 7:31 AM TRAINING AND DEVELOPMENT OFFICER Pulse 63 04/10/2019 7:31 AM TRAINING AND DEVELOPMENT OFFICER Temperature 36.7 C (98.1 F) 04/10/2019 7:31 AM TRAINING AND DEVELOPMENT OFFICER Respiratory Rate 18 04/10/2019 7:31 AM TRAINING AND DEVELOPMENT OFFICER Oxygen Saturation 96% 04/10/2019 7:31 AM TRAINING AND DEVELOPMENT OFFICER Inhaled Oxygen Concentration - - Weight 85.7 kg (189 lb) 04/10/2019 8:03 AM TRAINING AND DEVELOPMENT OFFICER Height 189.2 cm (6' 2.5") 04/09/2019 5:30 AM TRAINING AND DEVELOPMENT OFFICER Body Mass Index 23.94 04/09/2019 5:30 AM TRAINING AND DEVELOPMENT OFFICER Plan of Treatment Health Maintenance Due Date Last Done Comments COLON CANCER SCREENING COLONOSCOPY 1945 MEDICARE ANNUAL WELLNESS (YEAR 2 or FIRST YEAR if no 03/04/2012 IPPE) INFLUENZA VACCINE (#1) 2020 PNEUMOCOCCAL 65+ YRS Completed 11/06/2017 Implants Implanted Type Area Carpenter Railcar Device Shelf Model / Identifier Expiration Serial / Date Lot Floseal [facility] Full Strlprep 5ml [id number] - Sn/A Cement/[place] KING:BIOSCI 08/01/2019 [id number] / Implanted: Qty: 1 on 05/13/2018 at [facility] r/Adhesive N/A / [id number] Stent Excluder C3 23x14.5mmx16 [id number] - [id number] IMPLANTS N/A: WL GORE & 02/11/2022 [id number] / Implanted: Qty: 1 on 04/09/2019 by Che Diego MD at [facility] Aorta ASSC:MED PRDT [id number] / Grft Excluder 14.5x14mm [id number] - [id number] IMPLANTS Left: W L GORE & 03/30/2021 [id number] / Implanted: Qty: 1 on 04/09/2019 by Che Diego MD at [facility] Iliac ASSC:MED PRDT [id number] / Patch Pericard Bovine 8x14cm [id number] - Sn/A Tissue Left: [employer] 10/10/2022 [id number] / Implanted: Qty: 1 on 05/13/2018 by Madison Lopez MD at [facility] Graft/Substi Neck TECH:SURG INNOV N/A / tute [id number] Patch Periph Vascu-Grd 0.8x8cm [id number] - [id number] Tissue [employer] 02/18/2023 [id number] / Implanted: Qty: 1 on 09/24/2018 by Madison Lopez MD at [facility] Graft/Substi TECH:SURG INNOV / tute [id number] Procedures Procedure Name Priority Date/Time Associated Comments Diagnosis VASCULAR DIAGRAM 04/20/2019 5:30 -SCAN PM TRAINING AND DEVELOPMENT OFFICER REPORT OF PROCEDURE - 04/14/2019 11:05 ENDOSCOPY SCAN AM TRAINING AND DEVELOPMENT OFFICER CARDIAC CATH REPORT - 04/14/2019 11:05 SCAN AM TRAINING AND DEVELOPMENT OFFICER VASCULAR DIAGRAM 04/14/2019 11:05 -SCAN AM TRAINING AND DEVELOPMENT OFFICER RHYTHM STRIP - SCAN 04/14/2019 11:05 AM TRAINING AND DEVELOPMENT OFFICER TRANSFUSION SERVICE 04/10/2019 5:52 REPORT - SCAN PM TRAINING AND DEVELOPMENT OFFICER (CELLAVISION MANUAL Routine 04/10/2019 3:47 Resu lts for this DIFF) AM TRAINING AND DEVELOPMENT OFFICER procedure are i n the results section. CBC W/PLT COUNT & Routine 04/10/2019 3:47 Result s for this AUTO DIFFERENTIAL AM TRAINING AND DEVELOPMENT OFFICER procedure are in the results section. CBC W/PLT COUNT & Routine 04/10/2019 3:47 Result s for this AUTO DIFFERENTIAL AM TRAINING AND DEVELOPMENT OFFICER procedure are in the results section. BASIC METABOLIC PANEL Routine 04/10/2019 3:47 Re sults for this (7) AM TRAINING AND DEVELOPMENT OFFICER procedure are i n the results section. TRANSFUSION SERVICE 04/09/2019 6:05 REPORT - SCAN PM TRAINING AND DEVELOPMENT OFFICER ECG 12-LEAD Routine 04/09/2019 12:45 Results for this PM TRAINING AND DEVELOPMENT OFFICER procedure are i n the results section. ECG 12-LEAD Routine 04/09/2019 12:45 PM TRAINING AND DEVELOPMENT OFFICER Procedure Note - Interface, External Ris In - 04/09/2019 11:48 AM TRAINING AND DEVELOPMENT OFFICER Ventricular Rate 60 BPM Atrial Rate 60 BPM P-R Interval 168 ms QRS Duration 100 ms Q-T Interval 428 ms QTC Calculation(Bazett) 428 ms P [place] 69 degrees R [place] -59 degrees T [place] 33 degrees Sinus rhythm with marked sin us arrhythmia Left anterior fascicular blo ck Abnormal ECG When compared with ECG of 09:29, Premature atrial complexes a re no longer Present PREPARE LEUKO-REDUCED Routine 04/09/2019 10:45 AM Results for this RBC TRAINING AND DEVELOPMENT OFFICER procedure are i n the results section. POCT-ACT Routine 04/09/2019 9:44 AM Results for this TRAINING AND DEVELOPMENT OFFICER procedure are i n the results section. POCT-ACT Routine 04/09/2019 9:07 AM Results for this TRAINING AND DEVELOPMENT OFFICER procedure are i n the results section. 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 CBC W/PLT COUNT & AUTO STAT 04/09/2019 6:09 AM Results for this DIFFERENTIAL TRAINING AND DEVELOPMENT OFFICER procedure are i n the results section. BASIC METABOLIC PANEL STAT 04/09/2019 6:09 AM Results for this (7) TRAINING AND DEVELOPMENT OFFICER procedure are i n the results section. CBC W/PLT COUNT & AUTO STAT 04/09/2019 6:09 AM Results for this DIFFERENTIAL TRAINING AND DEVELOPMENT OFFICER procedure are i n the results section. TYPE AND SCREEN, Routine 04/08/2019 10:50 AM Abdominal aortic Results for this AUTOMATED TRAINING AND DEVELOPMENT OFFICER aneurysm without procedure a re in rupture (HCC) the results section. PT/APTT Routine 04/08/2019 9:55 AM Abdominal aortic Resu lts for this TRAINING AND DEVELOPMENT OFFICER aneurysm without procedure a re in rupture (HCC) the results section. (CELLAVISION MANUAL Routine 04/08/2019 9:54 AM Abdominal aort ic Results for this DIFF) TRAINING AND DEVELOPMENT OFFICER aneurysm without procedure a re in rupture (HCC) the results section. CBC W/PLT COUNT & AUTO Routine 04/08/2019 9:54 AM Abdominal a ortic Results for this DIFFERENTIAL TRAINING AND DEVELOPMENT OFFICER aneurysm without procedure a re in rupture (HCC) the results section. LIPID PANEL Routine 04/08/2019 9:54 AM Abdominal aortic Resu lts for this TRAINING AND DEVELOPMENT OFFICER aneurysm without procedure a re in rupture (HCC) the results section. COMPREHENSIVE Routine 04/08/2019 9:54 AM Abdominal aortic Res ults for this METABOLIC PANEL TRAINING AND DEVELOPMENT OFFICER aneurysm without procedur e are in rupture (HCC) the results section. CBC W/PLT COUNT & AUTO Routine 04/08/2019 9:54 AM Abdominal a ortic Results for this DIFFERENTIAL TRAINING AND DEVELOPMENT OFFICER aneurysm without procedure a re in rupture (HCC) the results section. after 03/29/2019 Results VASCULAR DIAGRAM -SCAN (04/20/2019 5:30 PM TRAINING AND DEVELOPMENT OFFICER)Only the most recent of2 results within the time period is included. Narrative Performed At This result has an attachment that is no t available. EKG-SCANNED (04/14/2019 11:05 AM TRAINING AND DEVELOPMENT OFFICER) Narrative Performed At This result has an attachment that is no t available. CARDIAC CATH REPORT - SCAN (04/14/2019 11:05 AM TRAINING AND DEVELOPMENT OFFICER) Narrative Performed At This result has an attachment that is no t available. RHYTHM STRIP - SCAN (04/14/2019 11:05 AM TRAINING AND DEVELOPMENT OFFICER) Narrative Performed At This result has an attachment that is no t available. TRANSFUSION SERVICE REPORT - SCAN (04/10/2019 5:52 PM TRAINING AND DEVELOPMENT OFFICER)Only the most recent of2 resultswithin the time period is included. Narrative Performed At This result has an attachment that is no t available. Manual Differential (04/10/2019 3:47 AM TRAINING AND DEVELOPMENT OFFICER)Only the most recent of3 results within the time period is included. Pathologist Sig nature % Neutros 76 % [facility] % Lymphs 6 % [facility] % Monos 14 % [facility] % Eos 4 % [facility] # Neutros 13.07 (H) 1.78 - 5.38 [facility] # Lymphs 1.03 (L) 1.32 - 3.57 [facility] # Monos 2.41 (H) 0.30 - 0.82 [facility] # Eos 0.69 (H) 0.04 - 0.54 [facility] Total Counted 100 [facility] RBC Morphology Normal [facility] WBC Morphology Normal [facility] Platelet Morphology Normal [facility] Artifact Present [facility] Platelet Conc Decreased [facility] Specimen Blood Narrative Performed At Received comment: [facility] User comments: Slide comments: Performing Organization Address City/State/Zipcode Phone Number [facility] [address] [place] [address] CENTER CBC with platelet count + automated diff (04/10/2019 3:47 AM TRAINING AND DEVELOPMENT OFFICER)Only the most recent of3 resultswithin the time period is included. Pathologist Sig nature WBC 17.2 (H) 3.5 - 10.5 K/L [facility] RBC 3.16 (L) 4.63 - 6.08 M/L [facility] Hemoglobin 10.2 (L) 13.7 - 17.5 GM/DL [facility] Hematocrit 32.7 (L) 40.1 - 51.0 % [facility] MCV 103.5 (H) 79.0 - 92.2 fL [facility] MCH 32.3 (H) 25.7 - 32.2 pg [facility] MCHC 31.2 (L) 32.3 - 36.5 GM/DL [facility] RDW 15.4 (H) 11.6 - 14.4 % [facility] Platelets 56 (L) 150 - 450 K/CU MM [facility] MPV 10.0 9.4 - 12.4 fL [facility] nRBC 0 0 - 0 /100 WBC [facility] Specimen Blood Performing Organization Address City/State/Zipcode Phone Number [facility] [address] [place] [address] [place] Basic Metabolic Panel (04/10/2019 3:47 AM TRAINING AND DEVELOPMENT OFFICER)Only the most recent of2 results within the time period is included. Sodium 136 136 - 145 meq/L [facility] Potassium 4.7 3.5 - 5.1 meq/L [facility] Chloride 106 98 - 107 meq/L [facility] CO2 22 22 - 29 meq/L [facility] BUN 15 7 - 21 mg/dL [facility] Creatinine 1.11 0.57 - 1.25 [facility] mg/dL [facility] Glucose 95 70 - 105 mg/dL [facility] Calcium 8.6 8.4 - 10.2 [facility] mg/dL [facility] EGFR 65Comment: ESTIMATED mL/min/1.73 sq [facility] GFR IS NOT m [facility] ACCURATE CENTER CREATININE CLEARANCE IN PREDICTING GLOMERULAR FILTRATION RATE. ESTIMATED GFR IS NOT APPLICABLE FOR DIALYSIS PATIENTS. Specimen Blood Performing Organization Address City/[facility] Cent[facility] Phone Number [facility] [address] [place] [address] CENTER ECG 12 lead (04/09/2019 12:45 PM TRAINING AND DEVELOPMENT OFFICER) Specimen Narrative Performed At Ventricular Rate 60 BPM GE MUSE Atrial Rate 60 BPM P-R Interval 168 ms QRS Duration 100 ms Q-T Interval 428 ms QTC Calculation(Bazett) 428 ms P [place] 69 degrees R [place] -59 degrees T [place] 33 degrees Sinus rhythm with marked sinus arrhythmi a Left anterior fascicular block Nonspecific ST and T wave abnormality Abnormal ECG When compared with ECG of 24-SEP-2018 09 :29, Premature atrial complexes are no longer Present Confirmed by MD Guillen Roberto ([id number]) on 04/09 2:36:08 PM Procedure Note Interface, External Ris In - 04/09/2019 2:36 PM TRAINING AND DEVELOPMENT OFFICER Ventricular Rate 60 BPM Atrial Rate 60 BPM P-R Interval 168 ms QRS Duration 100 ms Q-T Interval 428 ms QTC Calculation(Bazett) 428 ms P [place] 69 degrees R [place] -59 degrees T [place] 33 degrees Sinus rhythm with marked sinus arrhythmi a Left anterior fascicular block Nonspecific ST and T wave abnormality Abnormal ECG When compared with ECG of 24-SEP-2018 09 :29, Premature atrial complexes are no longer Present Confirmed by MD Guillen Roberto ([id number]) on 04/09/2019 2:36:08 PM Performing Organization Address City/[facility]/Zipcode Phone Number [employer] MUSE Prepare Leuko-Red RBC (04/09/2019 10:45 AM TRAINING AND DEVELOPMENT OFFICER) Pathologist Sig nature CROSSMATCH COMPATIBLE SAFETRACE TX Unit ABO A Pos SAFETRACE TX UNIT NUMBER [id number] SAFETRACE TX Status RETURNED FROM ISSUE SAFETRACE TX Blood Bank Product RED BLOOD CELLS SAFETRACE TX PRODUCT CODE [id number] SAFETRACE TX CROSSMATCH COMPATIBLE SAFETRACE TX Unit ABO A Pos SAFETRACE TX UNIT NUMBER [id number] SAFETRACE TX Status RETURNED FROM ISSUE SAFETRACE TX Blood Bank Product RED BLOOD CELLS SAFETRACE TX PRODUCT CODE [id number] SAFETRACE TX Specimen Other Performing Organization Address City/[facility] Phone Number SAFETRACE TX POC ACTIVATED CLOTTING TIME (04/09/2019 9:44 AM TRAINING AND DEVELOPMENT OFFICER)Only the most recent of2 resultswithin the time period is included. Activated Clotting 208Comment: sec [facility] Reference Range: [facility] 74-137 seconds, CENTER Baseline/TESTED AT [address] [address] Specimen Blood Performing Organization Address [facility] Phone Number [address] [address] CENTER Type and screen, automated (For the [facility] Lab Only) (04/08/2019 10:50 AM TRAINING AND DEVELOPMENT OFFICER) Pathologist Sig nature ABO/RH AUTOMATED A POSITIVE [facility] Ab Scrn NEGATIVE [facility] Specimen Blood Performing Organization Address [facility] Phone Number [address] [address] PT/aPTT (04/08/2019 9:55 AM TRAINING AND DEVELOPMENT OFFICER) Pathologist Sig nature Protime 13.2 11.9 - 14.2 seconds [facility] INR 1.0 <=5.9 [facility] PTT 35.7 22.5 - 36.0 seconds [facility] Specimen Blood Narrative Performed At Effective 10/29/2018: PT Reference Range [facility] Change New: 11.9-14.2 Previous: 11.7-14.7 RECOMMENDED COUMADIN/WARFARIN INR THERAPY RANGES STANDARD DOSE: 2.0-3.0 Includes: PROPHYLAXIS for venous thrombosis, systemic embolization; TREATMENT for venous thrombosis and/or pulmonary embolus. HIGH RISK: Target INR is 2.5-3.5 for patients wiht mechanical heart valves. Performing Organization Address [facility] Cent[facility] Phone Number [address] [address] [place] Lipid panel (04/08/2019 9:54 AM TRAINING AND DEVELOPMENT OFFICER) Pathologist Sig nature Triglycerides 140 mg/dL [facility] Cholesterol 166 mg/dL [facility] ICAL [place] HDL 43 mg/dL [facility] LDL Calculated 95 mg/dL [facility] [place] Specimen Blood Narrative Performed At Triglyceride Reference Range: [facility] Low Risk <150 Borderline 150-199 High Risk 200-499 Very High Risk >=500 Cholesterol Reference Range: Low Risk <200 Borderline 200-239 High Risk >240 HDL Cholesterol Reference Range: Low Risk >=60 High Risk <40 LDL Cholesterol Reference Range: Optimal <100 Near Optimal 100-129 Borderline 130-159 High 160-189 Very High >=190 Performing Organization Address City/[facility]/Zipcode Phone Number [address] [address] [place] Comprehensive metabolic panel (04/08/2019 9:54 AM TRAINING AND DEVELOPMENT OFFICER) Protein, Total 7.8 6.0 - 8.3 [facility] gm/dL [facility] Albumin 4.5 3.5 - 5.0 [facility] g/dL [facility] Alkaline 85 40 - 150 U/L [facility] Phosphatase [facility] Total Bilirubin 0.4 0.2 - 1.2 [facility] mg/dL [facility] Sodium 141 136 - 145 [facility] meq/L [facility] Potassium 4.9 3.5 - 5.1 [facility] meq/L [facility] Chloride 107 98 - 107 [facility] meq/L [facility] CO2 29 22 - 29 meq/L [facility] BUN 12 7 - 21 mg/dL [facility] Creatinine 1.12 0.57 - 1.25 [facility] mg/dL [facility] Glucose 104 70 - 105 [facility] mg/dL [facility] Calcium 9.6 8.4 - 10.2 [facility] mg/dL [facility] AST 24 5 - 34 U/L [facility] ALT 15 6 - 55 U/L [facility] EGFR 64Comment: mL/min/1.73 [facility] ESTIMATED GFR IS sq [facility] NOT ACCURATE MEDICAL CENTER CREATININE CLEARANCE IN PREDICTING GLOMERULAR FILTRATION RATE. ESTIMATED GFR IS NOT APPLICABLE FOR DIALYSIS PATIENTS. 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
--- OUTSIDE RECORDS SUMMARY | 2020-03-29 07:29 | XMS REPORT | Continuity of Care Document ---
:1945 Author Organization [facility] t Address [address] [place] [address] Care Team Providers Name Role Phone MARGARET DIONI Primary Care Physician Unavailable SYSTEM, PROVIDER NOT IN Attending Clinician Unavailable Joss ZAMORA Attending Clinician Unavailable Lisseth GONZALEZ Attending Clinician Ray Murphy RN Attending Clinician Unavailable Dexter AQUINO, S Attending Clinician Unavailable LISSETH Attending Clinician Unavailable Pawel CALIX Attending Clinician VALENTE PRUITT Attending Clinician Unavailable Valente Pruitt MD Attending Clinician Shmuel AQUINO G Attending Clinician Unavailable Adrien Escobar PharmD Attending Clinician Bayron Warner Attending Clinician Grace CASING GRADER Attending Clinician Jayashree LAU, S Attending Clinician [...] Source Date MEDICARE PART A AND B [id number] 2011 00:00:00 AARP-SECONDARY ONLY [id number] 2019 00:00:00 MEDICAREMEDICARE A [id number] [address] baig [id number] 2011 00:00:00 [facility] MCR [id number] [address] SUPPLEMENT/INDIVIDUAL 00:00:00 [id number] ap Problems Condition Condition Condition [...] stenosis 4-24 [facility] 00 [facility] Carotid Carotid Disease Active [facility], [...] shock 2-12 [facility] 00 [facility] Acute Acute Disease Active 2017-[address] [facility] [...] Date Stop Date Quantity Comments Source History [facility] Std Drinks [facility] History [facility] - Alcohol Binge Medical [...] [facility] Alcohol Comment 2018-05-08 2018-05-[address] [facility] N[facility] kes - 00:00:00 00:00:00 [facility] History of tobacco 1963-10-01 2018-05-02 Current smoker MD Dao use 00:00:00 00:00:00 Smoking Status Start Date Stop Date Source Former smoker 2020-01-11 00:00:00 2020-01-11 00:00:00 MD [facility] anneliese Medications Ordered Filled Start Stop Current Ordering Indication Dosage Frequency Signature Comments Components Source Medication Medication Date Date Medication? Clinician (SIG) Name Name allopurinol 2019-06 Yes Myelodyspla 300mg Take 1 MD (ZYLOPRIM) 0-23 [facility] tablet Anderso 300 mg 00:00: syndrome (300 mg) n tablet 00 (clinical) by mouth daily. valACYclovi 2019-06 Yes Myelodyspla 500mg Take 1 MD lona (VALTREX) 0-06 [facility] tablet Haroldo o 500 mg 00:00: syndrome [...] 2019-06 Yes 1{tbl} Take 1 MD n 0-01 tablet by Anderso (THERAGRAN) 16:02: mouth as n tablet 26 needed. pantoprazol 2019-06 Yes daily. MD bernal 0- Anderso (PROTONIX) 16:02: n 40 mg EC 26 tablet INV-(2019-06 2020- No Myelodyspla 100mg Take 1 MD 025) 003-11 [facility] 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 Take on days 1-7 in combinatio n with Cedazudrid ine. No food 2 hours before and 2 hours after dose. INV-(2019-06- No Myelodyspla 100mg Take 1 MD 025) 003-11 [facility] tablet Anderso cedazuridin 00:00: 04:59 syndrome (100 mg) n e 100 mg 00 :00 (clinical) by mouth tablet daily for 7 days. Take on days 1-7 in combinatio n with azaCITIDin e. No food 2 hours before and 2 hours after dose. erythromyci 2020-0 Yes 1{appli Administer MD n (ROMYCIN) 9-22 cation} 1 Pietro so ophthalmic 00:00: applicatio n ointment 00 n to the right eye twice daily. acyclovir 2019- Yes 1{tbl} Take 1 MD (ZOVIRAX) 9-22 tablet by Pietro so 800 mg 00:00: mouth 5 n tablet 00 (five) times a day. 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 Take 1 MD 025) 02-03 [facility] 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 Take on days 1-7 in combinatio n with Cedazudrid ine. No food 2 hours before and 2 hours after dose. INV-(2019- No Myelodyspla 100mg Take 1 MD 025) [...] 6 tablet (six) hours as needed. senna-docus Yes Constipatio 1{tbl} Take 1 MD ate [...] 1 MD 025) 01-03 [facility] tablet Anderso azaCITIDine 00:00: 00:00 syndrome (100 mg) n 100 mg 00 :00 (clinical) by mouth tablet as directed. Take once on Day -3 (01/05/20) and then starting on Day 2 (01/08/20) take in combinatio n with Cedazuridi ne daily until Day 7. No food 2 hours before and 2 hours after dose. INV-(2020-0 2020-0 2020- No Myelodyspla 100mg Take 1 MD 025) 01-03 [facility] tablet Anderso cedazuridin 00:00: 00:00 syndrome (100 mg) n e 100 mg 00 :00 (clinical) by mouth tablet as directed. Start taking on Day 2 (01/08/20) in combinatio n with oral azaCITIDin e daily until Day 7 and take one additional dose on Day 22 (01/28/20). No food 2 hours before and 2 hours after dose. 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 tadalafiL 2019-0 Yes TAKE 1 MD (CIALIS) 10 5-11 [...] (two) mcg/dose times diskus daily. inhaler mINOCYCLine 2018-06- No 100mg Take [address] (MINOCIN,DY 06-10 capsule Luke [facility] - NACIN) 100 00:00: [...] 00 :00 by mouth Center nightly. rosuvastati 2018- Yes daily. MD apple (CRESTOR) 06-10 Anderso 10 mg 00:00: n [...] kg Systolic blood 2020-03-03 18:26:00 129 mm[Hg] pressure Diastolic blood 2020-03-03 18:26:00 60 mm[Hg] MD Roslyn manningson pressure Heart rate 2020-03-03 18:26:00 86 /min MD Pietro coy Body temperature 2020-03-03 14:09:24 36.5 Idania MD Candice mamicaelaon Respiratory rate 2020-03-03 14:09:24 16 /min MD Candice hernándezon Body weight 2020-03-03 14:09:24 84.2 kg MD [place] anneliese BMI 2020-03-03 14:09:24 24.84 kg/m2 MD Pietro coy Oxygen saturation in 2020-03-03 14:09:24 96 /min MD Dao Arterial blood by Pulse oximetry Body height 2019-12-10 15:08:03 184.1 cm MD [place] anneliese Body weight 2019-04-10 08:03:00 85.73 kg [facility] BMI 2019-04-10 08:03:00 23.94 kg/m2 [facility] Systolic blood 2019-04-10 07:31:00 139 mm[Hg] [facility] Diastolic blood 2019-04-10 07:31:00 63 mm[Hg] [facility] Heart rate 2019-04-10 07:31:00 63 /min [facility] Body temperature 2019-04-10 07:31:00 36.72 Idania [facility] Respiratory rate 2019-04-10 07:31:00 18 /min [facility] Oxygen saturation in 2019-04-10 07:31:00 96 /min [facility] Arterial blood by Medical Ce nter Pulse oximetry Body height 2019-04-09 05:30:00 189.2 cm [facility] Procedures Procedure Date / Time Performing Clinician Source Performed HP CYTOGENETICS BLOOD 2020-03-03 18:23:00 Amarilys Montanez MD COLLECTION HP CG CHROMOSOME ANALYSIS 2020-03-03 18:23:00 Leonela Montanez MD FINAL REPORT HP FC SCATTER FINAL REPORT 2020-03-03 18:23:00 Agustina Montanez MD HEMATOPATHOLOGY BONE MARROW 2020-03-03 18:23:00 MD Feliberto Blackwell INTERPRETATION June HEMATOPATHOLOGY BONE MARROW 2020-03-03 18:23:00 MD Feliberto Blackwell DIFFERENTIAL June MA DIAGNOSTIC BONE MARROW 2020-03-03 15:30:00 Leonela Montanez [...] CALCIUM LEVEL TOTAL 2020-03-03 12:18:00 Amarilys Montanez MD nderson ALBUMIN LEVEL 2020-03-03 12:18:00 Amarilys Montanez MD [facility] ALKALINE PHOSPHATASE 2020-03-03 12:18:00 Amarilys Montanez MD ALANINE AMINOTRANSFERASE 2020-03-03 12:18:00 Amarilys Montanez MD ASPARTATE AMINOTRANSFERASE 2020-03-03 12:18:00 Agustina Montanez MD TOTAL PROTEIN 2020-03-03 12:18:00 Amarilys Montanez MD [facility] FRACTIONATED BILIRUBIN 2020-03-03 12:18:00 Amarilys Montanez ABORH 2020-03-03 12:18:00 Amarilys Montanez MD [facility] Results CBC 2020-03-03 12:18:00 Amarilys Montanez MD [facility] ANTIBODY SCREEN 2020-03-03 12:18:00 Amarilys Montanez MD [facility] MANUAL DIFFERENTIAL 2020-03-03 12:18:00 Amarilys Montanez MD nderson URINALYSIS MICROSCOPIC 2020-03-03 12:18:00 Amarilys Montanez TMP INTERPRETATION ANTIBODY 2020-03-03 12:18:00 Tomas Montanez MD SCREEN NEGATIVE CLOT EXPIRATION DATE 2020-03-03 12:18:00 Amarilys Montanez MD TYPE AND SCREEN 2020-02-04 15:16:00 Amarilys Montanez MD [facility] COMPLETE BLOOD COUNT W/ 2020-02-04 15:16:00 Amarilys Montanez MD DIFFERENTIAL TOTAL PROTEIN 2020-02-04 15:16:00 Amarilys Montanez MD [facility] ALBUMIN LEVEL 2020-02-04 15:16:00 Amarilys Montanez MD [facility] CALCIUM LEVEL TOTAL 2020-02-04 15:16:00 Amarilys Montanez MD nderson PHOSPHORUS LEVEL 2020-02-04 15:16:00 Amarilys Montanez MD [facility] GLUCOSE, RANDOM 2020-02-04 15:16:00 Amarilys Montanez MD [facility] BLOOD UREA NITROGEN 2020-02-04 15:16:00 Amarilys Montanez MD nderson SERUM CREATININE 2020-02-04 15:16:00 Amarilys Montanez MD [facility] URIC ACID 2020-02-04 15:16:00 Amarilys Montanez MD Pietro son FRACTIONATED BILIRUBIN 2020-02-04 15:16:00 Amarilys Montanez ALKALINE PHOSPHATASE 2020-02-04 15:16:00 Amarilys Montanez MD LACTATE DEHYDROGENASE 2020-02-04 15:16:00 Amarilys Montanez MD ALANINE AMINOTRANSFERASE 2020-02-04 15:16:00 Amarilys Montanez MD ELECTROLYTE PANEL 2020-02-04 15:16:00 Amarilys Montanez MD And erson MAGNESIUM LEVEL 2020-02-04 15:16:00 Amarilys Montanez MD [facility] ASPARTATE AMINOTRANSFERASE 2020-02-04 15:16:00 Agustina Montanez MD GAMMA GLUTAMYL TRANSFERASE 2020-02-04 15:16:00 Agustina Montanez MD URINALYSIS WITH MICROSCOPIC 2020-02-04 15:16:00 Tomas Montanez MD IF INDICATED ABORH 2020-02-04 15:16:00 Amarilys Montanez MD [facility] ANTIBODY SCREEN 2020-02-04 15:16:00 Amarilys Montanez MD [facility] Results CBC 2020-02-04 15:16:00 Amarilys Montanez MD [facility] MANUAL DIFFERENTIAL 2020-02-04 15:16:00 Amarilys Montanez MD [...] PROTEIN 2020-02-01 11:50:00 Amarilys Montanez MD [facility] ALBUMIN LEVEL 2020-02-01 11:50:00 Amarilys Montanez MD [facility] CALCIUM LEVEL TOTAL 2020-02-01 11:50:00 Amarilys Montanez MD nderson PHOSPHORUS LEVEL 2020-02-01 11:50:00 Amarilys Montanez MD [facility] GLUCOSE, RANDOM 2020-02-01 11:50:00 Amarilys Montanez MD [facility] BLOOD UREA NITROGEN 2020-02-01 11:50:00 Amarilys Montanez MD nderson SERUM CREATININE 2020-02-01 11:50:00 Amarilys Montanez MD [facility] URIC ACID 2020-02-01 11:50:00 Amarilys Montanez MD [facility] FRACTIONATED BILIRUBIN 2020-02-01 11:50:00 Amarilys Montanez ALKALINE PHOSPHATASE 2020-02-01 11:50:00 Amarilys Montanez MD LACTATE DEHYDROGENASE 2020-02-01 11:50:00 Amarilys Montanez MD ALANINE AMINOTRANSFERASE 2020-02-01 11:50:00 Amarilys Montanez MD ELECTROLYTE PANEL 2020-02-01 11:50:00 Amarilys Montanez MD And erson MAGNESIUM LEVEL 2020-02-01 11:50:00 Amarilys Montanez MD [facility] ABORH 2020-02-01 11:50:00 Amarilys Montanez MD [facility] ANTIBODY SCREEN 2020-02-01 11:50:00 Amarilys Montanez MD [facility] Results CBC 2020-02-01 11:50:00 Amarilys Montanez MD [facility] MANUAL DIFFERENTIAL 2020-02-01 11:50:00 Amarilys Montanez MD nderson SERUM CREATININE 2020-02-01 11:50:00 Amarilys Montanez MD [facility] .GLOMERULAR FILTRATION RATE 2020-02-01 11:50:00 Tomas Montanez MD TMP INTERPRETATION ANTIBODY 2020-02-01 11:50:00 Tomas Montanez MD SCREEN NEGATIVE CLOT EXPIRATION DATE 2020-02-01 11:50:00 Amarilys Montanez MD TYPE AND SCREEN 2020-01-27 12:33:00 Amarilys Montanez MD [facility] COMPLETE BLOOD COUNT W/ 2020-01-27 12:33:00 Amarilys Motnanez MD DIFFERENTIAL TOTAL PROTEIN 2020-01-27 12:33:00 Amarilys Montanez MD [facility] ALBUMIN LEVEL 2020-01-27 12:33:00 Amarilys Montanez MD [facility] CALCIUM LEVEL TOTAL 2020-01-27 12:33:00 Amarilys Montanez MD nderson PHOSPHORUS LEVEL 2020-01-27 12:33:00 Amarilys Montanez MD [facility] GLUCOSE, RANDOM 2020-01-27 12:33:00 Amarilys Montanez MD [facility] BLOOD UREA NITROGEN 2020-01-27 12:33:00 Amarilys Montanez MD nderson SERUM CREATININE 2020-01-27 12:33:00 Amarilys Montanez MD [facility] URIC ACID 2020-01-27 12:33:00 Amarilys Montanez MD [facility] FRACTIONATED BILIRUBIN 2020-01-27 12:33:00 Amarilys Montanez ALKALINE PHOSPHATASE 2020-01-27 12:33:00 Amarilys Montanez MD LACTATE DEHYDROGENASE 2020-01-27 12:33:00 Amarilys Montanez MD ALANINE AMINOTRANSFERASE 2020-01-27 12:33:00 Amarilys Montanez MD ELECTROLYTE PANEL 2020-01-27 12:33:00 Amarilys Montanez MD And erson MAGNESIUM LEVEL 2020-01-27 12:33:00 Amarilys Montanez MD [facility] ABORH 2020-01-27 12:33:00 Amarilys Montanez MD [facility] ANTIBODY SCREEN 2020-01-27 12:33:00 Amarilys Montanez MD [facility] Results CBC 2020-01-27 12:33:00 Amarilys Montanez MD [facility] MANUAL DIFFERENTIAL 2020-01-27 12:33:00 Amarilys Montanez MD nderson SERUM CREATININE 2020-01-27 12:33:00 Amarilys Montanez MD [facility] .GLOMERULAR FILTRATION RATE 2020-01-27 12:33:00 Tomas Montanez MD CLOT EXPIRATION DATE 2020-01-27 12:33:00 Amarilys Montanez MD TMP INTERPRETATION ANTIBODY 2020-01-27 12:33:00 Tomas Montanez MD SCREEN NEGATIVE TOTAL PROTEIN 2020-01-25 12:01:00 Amarilys Montanez MD [facility] ALBUMIN LEVEL 2020-01-25 12:01:00 Amarilys Montanez MD [facility] CALCIUM LEVEL TOTAL 2020-01-25 12:01:00 Amarilys Montanez MD nderson PHOSPHORUS LEVEL 2020-01-25 12:01:00 Amarilys Montanez MD [facility] GLUCOSE, RANDOM 2020-01-25 12:01:00 Amarilys Montanez MD [facility] BLOOD UREA NITROGEN 2020-01-25 12:01:00 Amarilys Montanez MD nderson SERUM CREATININE 2020-01-25 12:01:00 Amarilys Montanez MD [facility] URIC ACID 2020-01-25 12:01:00 Amarilys Montanez MD [facility] FRACTIONATED BILIRUBIN 2020-01-25 12:01:00 Amarilys Montanez ALKALINE PHOSPHATASE 2020-01-25 12:01:00 Amarilys Montanez MD LACTATE DEHYDROGENASE 2020-01-25 12:01:00 Amarilys Montanez MD ALANINE AMINOTRANSFERASE 2020-01-25 12:01:00 Amarilys Montanez MD ELECTROLYTE PANEL 2020-01-25 12:01:00 Amarilys Montanez MD And erson MAGNESIUM LEVEL 2020-01-25 12:01:00 Amarilys Montanez MD [facility] ASPARTATE AMINOTRANSFERASE 2020-01-25 12:01:00 Agustina Montanez MD TYPE AND SCREEN 2020-01-25 12:01:00 Amarilys Montanez MD [facility] COMPLETE BLOOD COUNT W/ 2020-01-25 12:01:00 Amarilys Montanez MD DIFFERENTIAL SERUM CREATININE 2020-01-25 12:01:00 Amarilys Montanez MD [facility] .GLOMERULAR FILTRATION RATE 2020-01-25 12:01:00 Tomas Montanez MD Results CBC 2020-01-25 12:01:00 Amarilys Montanez MD [facility] MANUAL DIFFERENTIAL 2020-01-25 12:01:00 Amarilys Montanez MD nderson ABORH 2020-01-25 12:01:00 Amarilys Montanez MD [facility] ANTIBODY SCREEN 2020-01-25 12:01:00 Amarilys Montanez MD [facility] son CLOT EXPIRATION DATE 2020-01-25 12:01:00 Amarilys Montanez MD TMP INTERPRETATION ANTIBODY 2020-01-25 12:01:00 Tomas Montanez MD SCREEN NEGATIVE COMPLETE BLOOD COUNT W/ 2020-01-21 12:29:00 Mervat Casanova MD nderson DIFFERENTIAL TOTAL PROTEIN 2020-01-21 12:29: Mervat Casanova MD ALBUMIN LEVEL 2020-01-21 12:29: Mervat Casanova MD CALCIUM LEVEL TOTAL 2020-01-21 12:29: Mervat Casanova MD Pietro son PHOSPHORUS LEVEL 2020-01-21 12:29:00 Mervat Casanova MD GLUCOSE, RANDOM 2020-01-21 12:29: Mervat Casanova MD BLOOD UREA NITROGEN 2020-01-21 12:29: Mervat Casanova MD Pietro son SERUM CREATININE 2020-01-21 12:29: Mervat Casanova MD URIC ACID 2020-01-21 12:29:00 Mervat Casanova MD FRACTIONATED BILIRUBIN 2020-01-21 12:29: Mervat Casanova MD derson ALKALINE PHOSPHATASE 2020-01-21 12:29: Mervat Casanova MD [facility] LACTATE DEHYDROGENASE 2020-01-21 12:29: Mervat Casanova MD And erson ALANINE AMINOTRANSFERASE 2020-01-21 12:29:00 Mervat Casanova MD ELECTROLYTE PANEL 2020-01-21 12:29:00 Mervat Casanova MD Andpaytono n MAGNESIUM LEVEL 2020-01-21 12:29: Mervat Casanova MD ABORH 2020-01-21 12:29:00 Mervat Casanova MD ANTIBODY SCREEN 2020-01-21 12:29:00 Mervat Casanova MD Results CBC 2020-01-21 12:29:00 Mervat Casanova MD MANUAL DIFFERENTIAL 2020-01-21 12:29: Mervat Casanova MD Pietro son SERUM CREATININE 2020-01-21 12:29:00 Mervat Casanova MD .GLOMERULAR FILTRATION RATE 2020-01-21 12:29:00 Mervat Casanova MD TMP INTERPRETATION ANTIBODY 2020-01-21 12:29:00 Mervat Casanova MD SCREEN NEGATIVE CLOT EXPIRATION DATE 2020-01-21 12:29:00 Mervat Casanova MD [facility] TOTAL PROTEIN 2020-01-18 11:49:00 Amarilys Montanez MD [facility]ro son ALBUMIN LEVEL 2020-01-18 11:49:00 Amarilys Montanez MD [facility] son CALCIUM LEVEL TOTAL 2020-01-18 11:49:00 Amarilys Montanez MD nderson PHOSPHORUS LEVEL 2020-01-18 11:49:00 Amarilys Montanez MD [facility] GLUCOSE, RANDOM 2020-01-18 11:49:00 Amarilys Montanez MD [facility] BLOOD UREA NITROGEN 2020-01-18 11:49:00 Amarilys Montanez MD nderson SERUM CREATININE 2020-01-18 11:49:00 Amarilys Montanez MD [facility] URIC ACID 2020-01-18 11:49:00 Amarilys Montanez MD [facility] FRACTIONATED BILIRUBIN 2020-01-18 11:49:00 Amarilys Montanez ALKALINE PHOSPHATASE 2020-01-18 11:49:00 Amarilys Montanez MD LACTATE DEHYDROGENASE 2020-01-18 11:49:00 Amarilys Montanez MD ALANINE AMINOTRANSFERASE 2020-01-18 11:49:00 Amarilys Montanez MD ELECTROLYTE PANEL 2020-01-18 11:49:00 Amarilys Montanez MD And erson MAGNESIUM LEVEL 2020-01-18 11:49:00 Amarilys Montanez MD [facility] ASPARTATE AMINOTRANSFERASE 2020-01-18 11:49:00 Agustina Montanez MD COMPLETE BLOOD COUNT W/ 2020-01-18 11:49:00 Amarilys Montanez MD DIFFERENTIAL SERUM CREATININE 2020-01-18 11:49:00 Amarilys Montanez MD [facility] .GLOMERULAR FILTRATION RATE 2020-01-18 11:49:00 Tomas Montanez MD Results CBC 2020-01-18 11:49:00 Amarilys Montanez MD [facility] MANUAL DIFFERENTIAL 2020-01-18 11:49:00 Amarilys Montanez MD nderson ABORH 2020-01-18 11:49:00 Amarilys Montanez MD [facility] ANTIBODY SCREEN 2020-01-18 11:49:00 Amarilys Montanez MD [facility] TMP INTERPRETATION ANTIBODY 2020-01-18 11:49:00 Tomas Montanez MD SCREEN NEGATIVE CLOT EXPIRATION DATE 2020-01-18 11:49:00 Amarilys Montanez MD TYPE AND SCREEN 2020-01-14 12:41:00 Amarilys Montanez MD [facility] COMPLETE BLOOD COUNT W/ 2020-01-14 12:41:00 Amarilys Montanez MD DIFFERENTIAL TOTAL PROTEIN 2020-01-14 12:41:00 Amarilys Montanez MD [facility] ALBUMIN LEVEL 2020-01-14 12:41:00 Amarilys Montanez MD [facility] CALCIUM LEVEL TOTAL 2020-01-14 12:41:00 Amarilys Montanez MD nderson PHOSPHORUS LEVEL 2020-01-14 12:41:00 Amarilys Montanez MD [facility] GLUCOSE, RANDOM 2020-01-14 12:41:00 Amairlys Montanez MD [facility] BLOOD UREA NITROGEN 2020-01-14 12:41:00 Amarilys Montanez MD nderson SERUM CREATININE 2020-01-14 12:41:00 Amarilys Montanez MD [facility] URIC ACID 2020-01-14 12:41:00 Amarilys Montanez MD [facility] FRACTIONATED BILIRUBIN 2020-01-14 12:41:00 Amarilys Montanez ALKALINE PHOSPHATASE 2020-01-14 12:41:00 Amarilys Montanez MD LACTATE DEHYDROGENASE 2020-01-14 12:41:00 Amarilys Montanez MD ALANINE AMINOTRANSFERASE 2020-01-14 12:41:00 Amarilys Montanez MD ELECTROLYTE PANEL 2020-01-14 12:41:00 Amarilys Montanez MD And erson MAGNESIUM LEVEL 2020-01-14 12:41:00 Amarilys Montanez MD [facility] son ABORH 2020-01-14 12:41:00 Amarilys Montanez MD [facility] ANTIBODY SCREEN 2020-01-14 12:41:00 Amarilys Montanez MD [...] MD nderson PHOSPHORUS LEVEL 2020-01-11 13:31:00 Amarilys Montanez MD [facility] GLUCOSE, RANDOM 2020-01-11 13:31:00 [...] BLOOD COUNT W/ 2020-01-07 12:44:00 MD Feliberto Balckwell DIFFERENTIAL June GAMMA GLUTAMYL TRANSFERASE 2020-01-07 12:44:00 MD Feliberto Blackwell June COMPLETE BLOOD COUNT W/ 2020-01-07 12:44:00 Amarilys Montanez MD DIFFERENTIAL TOTAL PROTEIN 2020-01-07 12:44:00 Amarilys Montanez MD [facility] ALBUMIN LEVEL 2020-01-07 12:44:00 Amarilys Montanez MD [facility] CALCIUM LEVEL TOTAL 2020-01-07 12:44:00 Amarilys Montanez MD nderson PHOSPHORUS LEVEL 2020-01-07 12:44:00 Amarilys Montanez MD [facility] GLUCOSE, RANDOM 2020-01-07 12:44:00 Amarilys Montanez MD [facility] BLOOD UREA NITROGEN 2020-01-07 12:44:00 Amarilys Montanez [...] TOTAL PROTEIN 2020-01-04 18:13:00 Amarilys Montanez MD [facility] ALBUMIN LEVEL 2020-01-04 18:13:00 Amarilys Montanez MD [facility] CALCIUM LEVEL TOTAL 2020-01-04 18:13:00 Amarilys Montanez MD nderson PHOSPHORUS LEVEL 2020-01-04 18:13:00 Amarilys Montanez MD [facility] GLUCOSE, RANDOM 2020-01-04 18:13:00 Amarilys Montanez MD [facility] BLOOD UREA NITROGEN 2020-01-04 18:13:00 Amarilys Montanez MD nderson SERUM CREATININE 2020-01-04 18:13:00 Amarilys Montanez MD [facility] URIC ACID 2020-01-04 18:13:00 Amarilys Montanez MD [facility] FRACTIONATED BILIRUBIN 2020-01-04 18:13:00 Amarilys Montanez ALKALINE PHOSPHATASE 2020-01-04 18:13:00 Amarilys Montanez MD LACTATE DEHYDROGENASE 2020-01-04 18:13:00 Amarilys Montanez MD ALANINE AMINOTRANSFERASE 2020-01-04 18:13:00 Amarilys Montanez MD ELECTROLYTE PANEL 2020-01-04 18:13:00 Amarilys Montanez MD And erson MAGNESIUM LEVEL 2020-01-04 18:13:00 Amarilys Montanez MD [facility] ASPARTATE AMINOTRANSFERASE 2020-01-04 18:13:00 Agustina Montanez MD TYPE AND SCREEN 2020-01-04 18:13:00 Amarilys Montanez MD [facility] COMPLETE BLOOD COUNT W/ 2020-01-04 18:13:00 Amarilys Montanez MD DIFFERENTIAL URINALYSIS WITH MICROSCOPIC 2020-01-04 18:13:00 Tomas Montanez MD IF INDICATED SERUM CREATININE 2020-01-04 18:13:00 Amarilys Montanez MD [facility] .GLOMERULAR FILTRATION RATE 2020-01-04 18:13:00 Tomas Montanez MD Results CBC 2020-01-04 18:13:00 Amarilys Montanez MD [facility] MANUAL DIFFERENTIAL 2020-01-04 18:13:00 Amarilys Montanez MD nderson ABORH 2020-01-04 18:13:00 Amarilys Montanez MD [facility] ANTIBODY SCREEN 2020-01-04 18:13:00 Amarilys Montanez MD [facility] URINALYSIS MICROSCOPIC 2020-01-04 18:13:00 Amarilys Montanez CLOT EXPIRATION DATE 2020-01-04 18:13:00 Amarilys Montanez MD TMP INTERPRETATION ANTIBODY 2020-01-04 18:13:00 Tomas Montanez MD SCREEN NEGATIVE GAMMA GLUTAMYL TRANSFERASE 2020-01-04 18:13:00 Agustina Montanez MD ECHOCARDIOGRAM 2D COMPLETE 2019-12-29 12:50:31 Agustina Montanez MD URINALYSIS WITH MICROSCOPIC 2019-12-24 21:36:00 Tomas Montanez MD IF INDICATED URINALYSIS MICROSCOPIC 2019-12-24 21:36:00 Amarilys Montanez TOTAL PROTEIN 2019-12-24 17:43:00 Amarilys Montanez MD [facility] ALBUMIN LEVEL 2019-12-24 17:43:00 Amarilys Montanez MD [facility] CALCIUM LEVEL TOTAL 2019-12-24 17:43:00 Amarilys Montanez MD nderson PHOSPHORUS LEVEL 2019-12-24 17:43:00 Amarilys Montanez MD [facility] GLUCOSE, RANDOM 2019-12-24 17:43:00 Amarilys Montanez MD [facility] BLOOD UREA NITROGEN 2019-12-24 17:43:00 Amarilys Montanez MD nderson SERUM CREATININE 2019-12-24 17:43:00 Amarilys Montanez MD [facility] URIC ACID 2019-12-24 17:43:00 Amarilys Montanez MD [facility] FRACTIONATED BILIRUBIN 2019-12-24 17:43:00 Amarilys Montanez ALKALINE PHOSPHATASE 2019-12-24 17:43:00 Amarilys Montanez MD LACTATE DEHYDROGENASE 2019-12-24 17:43:00 Amarilys Montanez MD ALANINE AMINOTRANSFERASE 2019-12-24 17:43:00 Amarilys Montanez MD ELECTROLYTE PANEL 2019-12-24 17:43:00 Amarilys Montanez MD And erson MAGNESIUM LEVEL 2019-12-24 17:43:00 Amarilys Montanez MD [facility] ASPARTATE AMINOTRANSFERASE 2019-12-24 17:43:00 Agustina Montanez MD TYPE AND SCREEN 2019-12-24 17:43:00 Amarilys Montanez MD [facility] COMPLETE BLOOD COUNT W/ 2019-12-24 17:43:00 Amarilys Montanez MD DIFFERENTIAL SERUM CREATININE 2019-12-24 17:43:00 Amarilys Montanez MD Duc rson .GLOMERULAR FILTRATION RATE 2019-12-24 17:43:00 Tomas Montanez MD Results CBC 2019-12-24 17:43:00 Amarilys Montanez MD [facility] MANUAL DIFFERENTIAL 2019-12-24 17:43:00 Amarilys Montanez MD A nderson ABORH 2019-12-24 17:43:00 Amarilys Montanez MD [facility] ANTIBODY SCREEN 2019-12-24 17:43:00 Amarilys Montanez MD [facility] CLOT EXPIRATION DATE 2019-12-24 17:43:00 Amarilys Montanez MD TMP INTERPRETATION ANTIBODY 2019-12-24 17:43:00 Tomas Montanez MD SCREEN NEGATIVE HEMATOPATHOLOGY BONE MARROW 2019-12-16 02:49:00 MD Feliberto Blackwell DIFFERENTIAL June HP FC FLOW CYTOMETRY BLOOD 2019-12-14 20:22:00 Agustina Montanez MD COLLECTION HP MOLECULAR BLOOD 2019-12-14 20:22:00 Amarilys Montanez MD An derson COLLECTION HP CYTOGENETICS BLOOD 2019-12-14 20:22:00 Amarilys Montanez MD COLLECTION HP CG CHROMOSOME ANALYSIS 2019-12-14 20:22:00 Leonela Montanez MD FINAL REPORT HP FLT3 ANALYSIS REPORT 2019-12-14 20:22:00 Agustina Montanez MD HP LEUKEMIA MUTATION 2019-12-14 20:22:00 Amarilys Montanez MD PANEL V1 HP FC MDS FINAL REPORT 2019-12-14 20:22:00 Amarilys Montanez HEMATOPATHOLOGY BONE MARROW 2019-12-14 20:22:00 MD Feliberto Blackwell INTERPRETATION June MA DIAGNOSTIC BONE MARROW 2019-12-14 19:00:00 Leonela Montanez MD BIOPSIES & ASPIRATIONS POTASSIUM VENOUS 2019-12-14 17:04:00 Edgar Nogueira MD [facility] [place] TYPE AND SCREEN 2019-12-14 14:46:00 Amarilys Montanez MD Piet[facility] son COMPLETE BLOOD COUNT W/ 2019-12-14 14:46:00 Amarilys Montanez MD DIFFERENTIAL TOTAL PROTEIN 2019-12-14 14:46:00 Amarilsy Montanez MD [facility] son ALBUMIN LEVEL 2019-12-14 [...] MD And erson MAGNESIUM LEVEL 2019-12-14 14:46:00 Amarilys Montanez MD [facility] PERIPHERAL SMEAR FOR BONE 2019-12-14 14:46:00 Leonela Montanez MD MARROW ABORH 2019-12-14 14:46:00 Amrailys Montanez MD [facility] ANTIBODY SCREEN 2019-12-14 14:46:00 Amarilys Montanez MD [...] PROTEIN 2019-12-10 16:26:00 Amarilys Montanez MD [facility] ALBUMIN LEVEL 2019-12-10 16:26:00 Amarilys Montanez MD [facility] CALCIUM LEVEL TOTAL 2019-12-10 16:26:00 Amarilys Montanez MD nderson PHOSPHORUS LEVEL 2019-12-10 16:26:00 Amarilys Montanez MD Duc rson GLUCOSE, RANDOM 2019-12-10 16:26:00 Amarilys Montanez MD [facility] BLOOD UREA NITROGEN 2019-12-10 16:26:00 Amarilys Montanez MD nderson SERUM CREATININE 2019-12-10 16:26:00 Amarilys Montanez MD Duc rson URIC ACID 2019-12-10 16:26:00 Amarilys Montanez MD [facility] FRACTIONATED BILIRUBIN 2019-12-10 16:26:00 Amarilys Montanez ALKALINE PHOSPHATASE 2019-12-10 16:26:00 Amarilys Montanez MD LACTATE DEHYDROGENASE 2019-12-10 16:26:00 Amarilys Montanez MD ALANINE AMINOTRANSFERASE 2019-12-10 16:26:00 Amarilys Montanez MD ELECTROLYTE PANEL 2019-12-10 16:26:00 Amarilys Montanez MD And erson MAGNESIUM LEVEL 2019-12-10 16:26:00 Amarilys Montanez MD [facility] ASPARTATE AMINOTRANSFERASE 2019-12-10 16:26:00 Agustina Montanez MD THYROID STIMULATING HORMONE 2019-12-10 16:26:00 Tomas Montanez MD FIBRINOGEN ACTIVITY 2019-12-10 16:26:00 Amarilys Montanez MD nderson VITAMIN B12 LEVEL 2019-12-10 16:26:00 Amarilys Montanez MD And erson RETICULOCYTE COUNT 2019-12-10 16:26:00 Amarilys Montanez MD derson AUTOMATED FOLATE LEVEL 2019-12-10 16:26:00 Amarilys Montanez MD [facility] FERRITIN LVL 2019-12-10 16:26:00 Amarilys Montanez MD [facility] D DIMER 2019-12-10 16:26:00 Amarilys Montanez MD [facility] ERYTHROPOIETIN LEVEL 2019-12-10 16:26:00 Amarilys Montanez MD NT PRO BNP 2019-12-10 16:26:00 Amarilys Montanez MD [facility] TYPE AND SCREEN 2019-12-10 16:26:00 Amarilys Montanez MD [facility] HEPATITIS B CORE ANTIBODY 2019-12-10 16:26:00 Leonela [...] PROTOCOL 2019-12-10 16:26:00 Amarilys Montanez MD And erson [id number] SERUM CREATININE 2019-12-10 16:26:00 Amarilys Montanez MD [...] CONFIRM ABORH TYPE 2019-12-10 16:22:00 Amarilys Montanez MD HC COVID19 AUTOMATED PCR 2019-12-08 12:04:00 Rochelle Vallejo MD Celsa PATHOLOGY OUTSIDE 2019-11-06 00:00:00 Jeffrey Burt MD Anderso n INTERPRETATION HEMATOPATHOLOGY BONE MARROW 2019-11-06 00:00:00 Jeffrey Burt MD DIFFERENTIAL VASCULAR DIAGRAM -SCAN 2019-04-20 17:30:08 Provider, [facility] REPORT OF PROCEDURE - 2019-04-14 11:05:36 Provider, [facility] ENDOSCOPY SCAN Scanning [facility] CARDIAC CATH REPORT - SCAN 2019-04-14 11:05:33 Provider, [facility] VASCULAR DIAGRAM -SCAN 2019-04-14 11:05:31 Provider, [facility] RHYTHM STRIP - SCAN 2019-04-14 11:05:26 Provider, [facility] TRANSFUSION SERVICE REPORT 2019-04-10 17:52:05 Provider, [facility] - - SCAN Scanning [facility] BASIC METABOLIC PANEL (7) 2019-04-10 03:47:00 Che Mooney [facility] CBC W/PLT COUNT & AUTO 2019-04-10 03:47:00 Che Mooney [facility] (CELLAVISION MANUAL DIFF) 2019-04-10 03:47:00 Patrick Mooneydclona [facility] TRANSFUSION SERVICE REPORT 2019-04-09 18:05:53 Provider, [facility] - - SCAN [facility] ECG 12-LEAD 2019-04-09 12:45:32 Unknown, [facility] PREPARE LEUKO-REDUCED RBC 2019-04-09 10:45:00 Che Mooney [facility] POCT-ACT 2019-04-09 09:44:00 Che Mooney [facility] POCT-ACT 2019-04-09 09:07:00 Che Mooney [facility] EVAR EXCLUSION MCR - IP 2019-04-09 06:48:00 Che Mooney [facility] - PROC ONLY [facility] BASIC METABOLIC PANEL (7) 2019-04-09 06:09:00 Che Mooney [facility] CBC W/PLT COUNT & AUTO 2019-04-09 06:09:00 Che Mooney [facility] (CELLAVISION MANUAL DIFF) 2019-04-09 06:09:00 Che Mooney [facility] TYPE AND SCREEN, AUTOMATED 2019-04-08 10:50:00 Che Mooney [facility] PT/APTT 2019-04-08 09:55:00 Che Mooney [facility] COMPREHENSIVE METABOLIC 2019-04-08 09:54:00 Che Mooney [facility] LIPID PANEL 2019-04-08 09:54:00 Che Mooney [facility] CBC W/PLT COUNT & AUTO 2019-04-08 09:54:00 Che Mooney [facility] (CELLAVISION MANUAL DIFF) 2019-04-08 09:54:00 Jesica leola [facility] Plan of Care Planned Activity Planned Date Details Comments Source Future Scheduled 2020-02-[address] [facility] - Test 00:00:00 (#1) [code = [facility] INFLUENZA VACCINE (#1)] Future Scheduled 2012-03-[address] [facility] - Test 00:00:00 WELLNESS (YEAR [facility] or [facility] FIRST YEAR if no IPPE) [code = MEDICARE ANNUAL WELLNESS (YEAR 2 or FIRST YEAR if no IPPE)] Future Scheduled [address] [facility] - Test 00:00:00 malignant neoplasm Medical C enter of colon (procedure) [code = 804549609] Encounters Start End Encounter Admission Attending Care Care Encounter Source Date/Time Date/Time Type Type Clinicians Facility Department ID 2020-02-15 Outpatient SYSTEMCARLOS MDA [id number] 11:42:17 PROVIDER [facility] apple 2020-01-04 Outpatient CARLOS GONZALEZ [id number] 15:51:33 Chavez apple 2019-12-22 Outpatient MELBA ZAMORA MDA MDA [id number] 11:07:13 RAFAEL apple 2019-11-26 Outpatient SYSTEMCARLOS MDA [id number] 12:31:31 PROVIDER Haroldo o zechariah 2020-03-03 2020-03-03 Outpatient MELBA MONTANEZ MDA MDA [id number] 10:30:00 23:59:00 AMARILYS apple 2020-03-03 2020-03-03 Outpatient EL MAY MDA MDA [id number] 07:25:25 11:54:16 Haroldo PRUITT JUNE n 2020-03-03 2020-03-03 Outpatient MELBA MONTANEZ, MDA MDA [id number] 07:11:53 10:29:00 AMARILYS apple 2020-03-03 2020-03-03 Outpatient EL MAY MDA MDA [id number] 07:33:17 07:33:17 Haroldo PRUITT JUNE n 2020-02-15 2020-02-15 Outpatient EL MAY MDA MDA [id number] 00:00:00 00:00:00 Haroldo PRUITT JUNE n 2020-02-15 2020-02-15 Outpatient EL MAY MDA MDA [id number] 00:00:00 00:00:00 Haroldo PRUITT JUNE n 2020-02-11 2020-02-11 Outpatient EL MAY MDA MDA [id number] 00:00:00 00:00:00 Haroldo PRUITT JUNE n 2020-02-11 2020-02-11 Outpatient EL MAY MDA MDA [id number] 00:00:00 00:00:00 Haroldo PRUITT JUNE n 2020-02-04 2020-02-04 Outpatient EL MAY MDA MDA [id number] 07:30:00 23:59:00 Haroldo PRUITT JUNE n 2020-02-04 2020-02-04 Outpatient EL MAY MDA MDA [id number] 13:01:22 13:01:22 Haroldo PRUITT JUNE n 2020-02-04 2020-02-04 Outpatient EL MAY MDA MDA [id number] 09:47:29 11:23:48 Haroldo PRUITT JUNE n 2020-02-04 2020-02-04 Outpatient EL MAY MDA MDA [id number] 00:00:00 00:00:00 Haroldo PRUITT JUNE n 2020-02-01 2020-02-01 Outpatient NORAHA, MDA MDA [id number] 06:44:58 23:59:00 AMARILYS [place] so n 2020-02-01 2020-02-01 Outpatient EL SALVATORA, MDA MDA [id number] 06:44:46 06:44:46 AMARILYS [place] so n 2020-02-01 2020-02-01 Outpatient EL MAY MDA MDA [id number] 00:00:00 00:00:00 Haroldo PRUITT JUNE n 2020-02-01 2020-02-01 Outpatient EL MAY MDA MDA [id number] 00:00:00 00:00:00 Haroldo PRUITT JUNE n 2020-01-29 2020-01-29 Outpatient EL MAY MDA MDA [id number] 00:00:00 00:00:00 Haroldo PRUITT JUNE n 2020-01-28 2020-01-28 Outpatient EL MAY MDA MDA [id number] 00:00:00 00:00:00 Haroldo PRUITT JUNE n 2020-01-28 2020-01-28 Outpatient EL MAY MDA MDA [id number] 00:00:00 00:00:00 Haroldo PRUITT JUNE n 2020-01-28 2020-01-28 Outpatient EL MAY MDA MDA [id number] 00:00:00 00:00:00 Haroldo PRUITT JUNE n 2020-01-27 2020-01-27 Outpatient EL SALVATORA, MDA MDA [id number] 07:21:52 23:59:00 AMARILYS [place] so n 2020-01-27 2020-01-27 Outpatient EL SALVATORA, MDA MDA [id number] 07:38:46 07:38:46 AMARILYS [place] so n 2020-01-27 2020-01-27 Outpatient EL MAY MDA MDA [id number] 07:21:31 07:21:31 Haroldo PRUITT JUNE n 2020-01-26 2020-01-26 Outpatient EL MAY MDA MDA [id number] 06:51:19 23:59:00 Haroldo PRUITT JUNE n 2020-01-25 2020-01-25 Outpatient EL SALVATORA, MDA MDA [id number] 06:39:14 23:59:00 AMARILYS [place] so n 2020-01-25 2020-01-25 Outpatient EL SALVATORA, MDA MDA [id number] MD 06:39:01 06:39:01 AMARILYS [place] so n 2020-01-25 2020-01-25 Outpatient EL MAY MDA MDA [id number] MD 00:00:00 00:00:00 Haroldo PRUITT JUNE n 2020-01-25 2020-01-25 Outpatient EL MAY MDA MDA [id number] MD 00:00:00 00:00:00 Haroldo PRUITT JUNE n 2020-01-21 2020-01-21 Outpatient EDILBERTO, MDA MDA [id number] MD 07:24:30 23:59:00 MERVAT wylie n 2020-01-21 2020-01-21 Outpatient MELBA CASANOVA, MDA MDA [id number] MD 07:43:33 07:43:33 MERVAT apple 2020-01-21 2020-01-21 Outpatient EL MAY MDA MDA [id number] MD 07:24:47 07:24:47 Haroldo PRUITT JUNE n 2020-01-21 2020-01-21 Outpatient EL MAY MDA MDA [id number] 00:00:00 00:00:00 Haroldo PRUITT JUNE n 2020-01-21 2020-01-21 Outpatient EL MAY MDA MDA [id number] 00:00:00 00:00:00 Haroldo PRUITT JUNE n 2020-01-18 2020-01-18 Outpatient EL SALVATORA, MDA MDA [id number] 06:44:06 23:59:00 AMARILYS [place] so n 2020-01-18 2020-01-18 Outpatient EL SALVATORA, MDA MDA [id number] MD 06:43:55 06:43:55 AMARILYS [place] so n 2020-01-18 2020-01-18 Outpatient EL MAY MDA MDA [id number] MD 00:00:00 00:00:00 Haroldo PRUITT JUNE n 2020-01-18 2020-01-18 Outpatient EL MAY MDA MDA [id number] 00:00:00 00:00:00 Haroldo PRUITT JUNE n 2020-01-14 2020-01-14 [facility] [id number] 07:12:49 23:59:00 Haroldo PRUITT JUNE n 2020-01-14 2020-01-14 [facility] MDA MDA [id number] 08:48:08 08:48:08 Haroldo PRUITT JUNE n 2020-01-14 2020-01-14 [facility] [id number] 07:42:35 07:42:35 Haroldo PRUITT JUNE n 2020-01-14 2020-01-14 [facility] MDA [id number] 07:12:35 07:12:35 Haroldo PRUITT JUNE n 2020-01-13 2020-01-13 Outpatient [facility] MDA MDA [id number] 07:05:08 23:59:00 Haroldo PRUITT JUNE n 2020-01-13 2020-01-13 Outpatient [facility] MDA MDA [id number] 07:32:19 07:32:19 Haroldo PRUITT JUNE n 2020-01-11 2020-01-11 Outpatient [facility], MDA MDA [id number] 10:02:52 13:20:01 GREG apple 2020-01-11 2020-01-11 Outpatient [facility], MDA MDA [id number] 08:57:34 09:48:53 AMARILYS apple 2020-01-11 2020-01-11 Outpatient [facility], MDA MDA [id number] 08:31:21 08:49:52 AMARILYS apple 2020-01-11 2020-01-11 Outpatient [facility] MDA MDA [id number] 00:00:00 00:00:00 Haroldo PRUITT JUNE n 2020-01-11 2020-01-11 [facility] [id number] 00:00:00 00:00:00 Haroldo PRUITT JUNE n 2020-01-08 2020-01-08 Outpatient [facility] MDA MDA [id number] 07:16:35 07:16:35 Haroldo PRUITTID n 2020-01-07 2020-01-07 Outpatient [facility], MDA MDA [id number] 07:27:22 23:59:00 AMARILYS [place] so n 2020-01-07 2020-01-07 Outpatient [facility] MDA MDA [id number] 08:53:53 08:53:53 Haroldo PRUITT JUNE n 2020-01-07 2020-01-07 Outpatient [facility], MDA MDA [id number] 08:05:30 08:05:30 AMARILYS [place] so n 2020-01-07 2020-01-07 Outpatient [facility] MDA MDA [id number] 07:26:26 07:26:26 Haroldo PRUITT JUNE n 2020-01-07 2020-01-07 Outpatient [facility] MDA MDA [id number] 07:15:00 07:26:00 Haroldo PRUITT JUNE n 2020-01-07 2020-01-07 Outpatient [facility] MDA MDA [id number] 06:52:32 07:14:00 Haroldo PRUITT JUNE n 2020-01-05 2020-01-05 Outpatient [facility] MDA MDA [id number] 07:37:32 23:59:00 Haroldo PRUITT JUNE n 2020-01-05 2020-01-05 Outpatient [facility] MDA MDA [id number] 07:37:48 07:37:48 Haroldo PRUITT JUNE n 2020-01-05 2020-01-05 Outpatient [facility] MDA MDA [id number] 07:01:56 07:36:00 Haroldo PRUITT JUNE n 2020-01-04 2020-01-04 Outpatient [facility], MDA MDA [id number] 12:55:40 23:59:00 AMARILYS [place] so n 2020-01-04 2020-01-04 Outpatient [facility] MDA MDA [id number] 13:20:42 13:20:42 Haroldo PRUITT JUNE n 2019-12-29 2019-12-29 Outpatient [facility], MDA MDA [id number] 06:48:03 23:59:00 AMARILYS [place] so n 2019-12-29 2019-12-29 Outpatient EL MAY MDA MDA [id number] 07:43:41 07:43:41 Haroldo PRUITT JUNE n 2019-12-29 2019-12-29 Outpatient EL SALVATORA, MDA MDA [id number] 00:00:00 00:00:00 AMARILYS Alvareser so n 2019-12-29 2019-12-29 Outpatient EL MAY MDA MDA [id number] 00:00:00 00:00:00 Haroldo PRUITT JUNE n 2019-12-24 2019-12-24 Outpatient EL SALVATORA, MDA MDA [id number] 16:25:48 23:59:00 AMARILYS Alvareser so n 2019-12-24 2019-12-24 Outpatient EL MAY MDA MDA [id number] 12:50:38 16:58:36 Haroldo PRUITT JUNE n 2019-12-24 2019-12-24 Outpatient EL SALVATORA, MDA MDA [id number] 12:27:52 16:24:00 AMARILYS Alvareser so n 2019-12-23 2019-12-23 Outpatient [facility] MDA MDA [id number] 07:26:00 23:59:00 Haroldo ANAND 2019-12-14 2019-12-14 Outpatient EL SALVATORA, MDA MDA [id number] 14:00:00 23:59:00 AMARILYS Alvareser so n 2019-12-14 2019-12-14 Outpatient EL JERO, MDA MDA [id number] 11:46:16 13:59:00 EDGAR apple 2019-12-14 2019-12-14 Outpatient EL MAY MDA MDA [id number] 11:51:42 11:51:42 Haroldo PRUITT JUNE n 2019-12-14 2019-12-14 Outpatient EL DANISH, MDA MDA [id number] 10:03:00 11:45:00 Carolina apple 2019-12-14 2019-12-14 Outpatient EL SALVATORA, MDA MDA [id number] 09:25:53 10:02:00 AMARILYS [place] so n 2019-12-14 2019-12-14 Outpatient MELBA MONTANEZ MDA MDA [id number] 09:26:08 09:26:08 AMARILYS apple 2019-12-10 2019-12-10 Outpatient MELBA MONTANEZ MDA MDA [id number] 11:12:14 23:59:00 AMARILYS apple 2019-12-10 2019-12-10 Outpatient MELBA MAY MDA MDA [id number] 09:31:49 15:36:51 Haroldo PRUITT JUNE n 2019-12-10 2019-12-10 Outpatient MELBA MAY MDA MDA [id number] 09:31:21 09:31:21 Haroldo PRUITT 2019-12-10 2019-12-10 Outpatient CARLOS MDA [id number] 09:11:05 09:11:05 Haroldo apple 2019-12-10 2019-12-10 Outpatient MELBA MONTANEZ MDA MDA [id number] 00:00:00 00:00:00 AMARILYS apple 2019-12-08 2019-12-08 Outpatient MELBA MAY MDA MDA [id number] 06:55:55 06:55:55 Haroldo PRUITT 2019-12-08 2019-12-08 Outpatient MELBA MAY MDA MDA [id number] 00:00:00 00:00:00 Haroldo PRUITT JUNE n 2017-04-24 2017-04-24 [facility] [id number] . 18:23:00 18:23:00 [facility] Results Test Description Test Time Test Comments [...] Diff may have been completed by a medical insurance biller and is subject to change. Any pathologist updates will be included on interpretation and appear in the final result. Please use caution in evaluating your patient based on preliminary results. Lab Interpretation (test code = Abnormal 52049-8) [facility] [id number] 15:43:00 Test Item Value Reference Range Interpretation Comments Diagnosis (test code = 34) j9xrrBXbNHFucHB9AUV iAETek3ubr3HaqDTgrQ WmYFgjiUZqznPjym08e MB6yP82UM4gGJXhAaU1 KNLiauO6Iyn3DSRiKSL cbVLoG007i2oup8mdvb SwkTD2qTbpOMFgRSunE VxyaTFcbGluMVxwbGFp blxmczIwIEJvbmUgbWF ydq11LXMoh2A0EWCmj0 FahDsgPLXfI0Xrr0SaZ RYtm9XfuThcB2rzuAUo OLT1qB5hTNGsk6VsdvA 0ZSBzbWVhcnMsIGFuZC M4y3PpwALinvSlHVGxo UyqddqoxCFfFU8ghQLw UU4zbne+AL8ldbm+XH5 cflx+PZ5njmRZUNZWOZ HSMS8HLDTWPw1GPGHgF HnLZD8EU96VG7oWDTMz HLSUD7IROIMcKXKoQCF AINOQNyHLDxKOX6NTKk FURSBTTUVBUlMgKHNlZ EHhg48xSU02QX1aaLJu fQ== Comment (test code = 9835) c7ffnIByHHEafFQ7BMW oXIOwc7frz1BoxJGtoW NaWPyccKTjpuOzey86u BV1cU90EG8jCOIcPjV7 GVVjngH4Zei5DFAnRCT jqFBaS258u6ton5cftj XbjSC7XCTtBAZ5OCtgg qBjroH7VAntlZFeMdH4 N02nrYKeMSaueNWpfxj hoyOjQDBbO1CyFMJnWW BlciBjbGluaWNhbCBub 3RlcywgdGhlIHBhdGll ixNjfKIrGCJ5JjA7qiW zZBqxOCkysHlyC90WLH wgYmVpbmcgdHJlYXRlZ MO9sCEtNHZ0QVIqsYsr bT1nROPlGFMqFCYayvN yaWRpbmUuXHBhclxwYX XsqKmmHGFmBXforF5aG HSbM8HaZXRcRNVofbVi lEZ7qL2iMRklmJshPG4 kdYzmDHW1WLJ2mFJ9JR Dlf8YuaBOcdCUbjfPvc 72pDA7uWWGuLt9lOYGd vLLmOBFrLOV7WWo7SOM ih73sTCObgu5= Microscopic Description u1kxoOSsMPCapRG8GCM (test code = 9865) hYRIgw7cdc7HcoSDkhW AuUEeybLPtrcEmgw93v RN1sC69YQ6hEQIhRvA9 NPDsbqS6Grn2YNBzTOP oaZHiC355g9xvj5pidk MrgJX9HEWqYKUhO6TsC P0pGAHthFJmHBE9VUBm ZDIyOVxncmVlbjIyOVx hpWXdZnO4S88ljIIaBG xsaTFccmkxXGxpbjFcc HebiP8zYusyihOtUKYi PNmsfGAujSP2QnREXRT SLEvOCiZYVISEX86BRK x+Y91GNYPjuULtVSTsU JDcFJfnaFDhdWP2KKt+ XHBhciBSQkNzOiBcflx +JH2vuzv+IU1ojwc+XH 5cflx+HG9sIIBuyi3lb PBlMfjwrc9laU3xdRHb sMltXXLsQQ1sZScdf0h 0aCBtaWxkIGFuaXNvcG 9tn9zgv7W2yK4gsEAgH HBhciBXQkNzOiBcflx+ FG0ufac+YY7txnl+XH5 cflx+NNKdFSF2HSNhAT fgdUezKJEnv7j5oPFgl I2lv0K2fP8wxIUwNW1y XTGescI1qYY4mZ3iIDI yHDU5ceGjyuOwt8Aajq 1jKBUxpxZCpOB1BAfjc HM6IFx+TR3mdoi+XH5c flx+XU4gETeau15ca4Z 0hM0kCL1yFJ7wiKUwPQ 1xnVSnZISpR0IwHVEsG 2JwYXQyIEJPTkUgTUFS Cp4IGQHUR6EzbNJjJKT jCDWkBTqkrRErbAW8YT x+NPXclnLYtUFrgLT3Y lx+IA1sfxl+XP2bifl+ GJ3qdvd+TQ5aakx+XH5 cflx+XU3xchr+XH5cfl x+OB4cTMNmvHIimWWuD HBhciBDZWxsdWxhcml0 eTpcflx+BT3ryqb+XH5 cflx+CQ5ocby+XH5cfl x+JB7knwi+FO7tcrQ0G AMiGH0dcza+IO9tsiIm flxwYXIgTWVnYWthcnl aY8h9EBO0GYe+XH5cfl x+SM1spuo+MP8uKHRnp WAzlWR9OHI4x8VcZMO0 mEDhQPliWLWqQR6fqDm 1ndO1JVvtnyv+XH5cfl x+GR9jiss+JI6mdof+X H5cflx+ZM9cgjt+XH5c flx+CR2qxzUXy6UukUM fhcDgUfynUU3lpHRvAU 9kgSVfEZIuA5XzECNaZ 2JwYXQyIEJPTkUgTUFS Yi0QNSDPXBENHv8XD0B XEVDXDyDBU7ncADLlLk OaX4UsKOHwH7WuYZReY Y6itIPuPSM3PWczkNm0 IFx+XC2dpzn+WF3uink +ZT6xrjr+WO9frmv+XH 5cflx+CG7dlql+XH5cf hViuhQJYCUcaAQ7EH6x xMHaRZcgXZ88wB3otEZ lczpcflx+OL4jsns+XH 5cflx+YR9qqzu+XH5cf lx+IFNlcXVlbnRpYWwg pLP7yOJaoYedybxaHYn flUxkk8NoRk7poEPnQZ YvqCIilv6ddBZivpuoh lx+TN9bdby+KE7fqhs+ AL9ntsk+FA2wqaq+XH4 uM6CyqIPdiJeesFBfOC U1inW4hS6zBrCzyIHvo GFzdGljLlxwYXIgTWVn IQmymqmxR8h9ICV9DU6 cflx+JG1gdxp+XH5cfl x+AJNqK1QnIKMjFF6fk SVaGQt6bBZaj1E6dMLa Olx+ZR3brdk+ED2wvoj +JH2jcid+HN5lupd+XH 5jJw11ZPghW4NoECQyO P9isNMcDACzHGPfXBNv CTvynljrHP9gzkw+XH5 cflx+PE9kkqu+XH5cfl x+EJ3vqdVVa7ZweD6ac eRnt1WcPtfjIOWxDxdd b1OsZoYjher+OO6ahkf +VG8djqv+ZQ1aktl+XH 5cflx+GT2pafu+XH5cf lx+UM9mibi+FY1iJx98 IEfjA9CbWZXyXA6szBS yfQ== Gross Description (test f3hfbNCtUZWlg8zlXIS code = [id number]) tFgZsCMLIi8jmg217gZ VmHYhvQpIvVcR5uYRmQ ACuuSSct8T2LLcwlUAo BvEHbuctuWf1b4cbL7d uqs2eYV4gMkGaDVBwED QwXGZwcnEyIFRpbWVzI B9swzRHr56dqdm6r0dc USkgmC6dLJLjXLByaTY re5V6RWunoYNfRYPJg5 XidSXnJZ4pgle8t7ujO Ijdm2hds6VtPlUoUXSv ZXQwXGZwcnEyIEFyaWF cIB2dgrXlwrh5b1mtTZ WbRb1oHHCjfhgxN7tez jKkbFBpRqNliCMnO058 dknjzgo5r0qqSJRsPm5 fvNxoB9umrdUqiLOgFz BycTIgVHJveSBNaWNyb gXajJH1lHjpJaQhXYSb n82hqlbbC1uzzpTpgPF hJsMzrKIzW3xoHj6dJ5 47QGSlVPvda8aki8XoM mNoYXJzZXQwXGZwcnEy JOTnQ92vGJKDK898OIU nSBZoLMHhc5mze4rwA3 hhcnNldDBcZnBycTIgQ FXvKAx2eA6Tc2icl9hs jtDajDI3WWHyGMPlW7D xZE9gPDAajEHiS4ujHI TcQUdlcdIitrL3RPWxr SEbBIpnmyAsKjTnX0Dj CB8hHYoowBAhUzT8WIF oVIV8JUulQWHdMYgsMk h6YRF2K9tbLFS2N4ffs yEadlMoDHAxeVO5Piex piAoEyvpW3LwDF02NXx ioQMgYuh1NJPaQIw1BY lgLSLkJQJjWkc2XMc0D 5eoKBDcWMBkN4DdPV6c TICoMld4SKUeRXhsmrX uKTC4SWkxTAJoUZB2XH MoiLBuLvq0OOUxWWH9T 2vxpgIicaK0Q1zyiNVi BBLeU0klOOFuTVlfH5N kPY7aDDwoFdf4XHC5YS hbugFwTLq8RCozLWMeR Ib1QVNmaQDyCbX1XGKj PPJ0TKgznaRumkX0RXw osMSdYOekN3eaUOAyGA enE8IcMR3dUMkgRyp3U TIwNztccmVkMjIzXGdy ZWVuMjIzXGJsdWUyMjM 7XHJlZDIzOVxncmVlbj IdAUbmiFUvJxT5N1mgP ZPpFEDjX3LqQX8nPBNu Wyq7MAE9YThhkxOkIEy eybXiucFtMlo5NXM2JT i2Ysrfg4U2rDGtqSDcf HtcczEgaGVhZGluZyAx M580MUIfLRlcYPKfoco uUlg6e2mgBiWqXCSxxI 5pPNE5qQmehzAreQHlK UwmEdB0M639ULW7NKnr LYGeacedWAf9e3heHoL yGIQjyX7oDEZ8fP5FDu rySSHyjhqaNBg7SQtqK ECmcibxEiB0HFcvDMRq bFj7LKdgGDXdnlO5Lxt tYXJndDcyMFxtYXJnYj djBUskCCEkAZP4KvPzT WYxv1Osydr8PcAaAsMp MKXATdutuLGvWYI6MAR 0ZjFcZXBpYzkxMDFcYW 5rkMlciEz5fGncSUQtb qH4cPTbYUswi8fyFQV6 m1ydmiflCMHkHMeoPa1 udHRibHtcZjAgQXJpYW e9dI35GSPscS5csWLcF Lr4VZVsgjWsfBwasL6x ZnMyMCBCLiBJbGlhYyB DcmVzdCwgTGVmdCBQb3 K9WEGsl1RwUNMyo4Uwi XRgELLcsHPht6xotcB7 GJNaSdW6OFDdwNJpOXJ fHTHmlcYAzNXbiK1dan BpcyBlbnRpcmVseSBzd QZdmPY2QBTzgQ6lYUJg dC5uce2cbSTcTIKcd2K dE9FwoXNhsURsaWNfK7 JccHJvdGVjdDAgXHBsY WluXGZzMjBccGFyfVxw XPX6Oj1= Disclaimer (test code = o3afzTNkDTJqvPRaXiB 9844) uTHVaDEPcr5bbQFSasV FuZzEwMzNcZnRuYmpcd CToQGPmWiHis2vbk515 qOAde2oaNZIcDeT6dGX kVGWswXWmN064AQUdHW qpk9pfz1IoYZSyqBWgy 4S4FRKTigbkoFo1hWfv P77do2X6RjfeV4hpVSS wMXLaH1XlSS8aGTIrCk v1GVW3DCG4GHVuXAWiX 7OuCT9zZIRudXXmZFt0 w6cxxEdhFFXdNVC9h7u oPDnejfTjIV4idx0cnZ k3v6mwloJcCXRiVLHvo ZGKPZQjI9QypVemTh2k wKt0dExaEpmsSGM7Gnr 8PQ6qic85dtb9eOyzWB GqmdzoNvI2HXgxDCKgj sgaAHv0LWfgIQEoyFL7 EOMasUPcW2JxQUNyEK6 aajf4AZO6YPsrOQDbIk H0JRLmzJSyGTGnuTndU Ruga887CNJ6BoLuQE2t O4Zlj4U2mC7vnEGpCAB iaKJhYcMrJBKirx3lwJ UqWDhtb4DqXZS3ftN6n DYuaTDlZQZkBB43Ervy t5JuNtabXHW4OBYbcoR hc8Jat5grQgOurbWjM4 icW3PeTCKwCTXqBUOuH yKrywOje6Vok2LebALv lIi5g4dwAAXkOUSlzVj rc1nxPTI9ZCFxU3X6nD Gde5iaEBcvIHVpmSP8z rQ3SPPrvQLrH6DjnC7k RDRlTA2ftoy0i1ppDDI 9YOjpHZEqJqU2plY3WL BcaGVhZGVyeTcyMFxmb 992SVV9YjSbVBMej2Di E8XruWxdY66wcFqhR66 jWOScjGosiK8ztJrpzZ 5cZjBcZnMyNFxxbFxwb IQjyixiOCjmcvW7RMvs hinxRUFjGQwvI0uqGyV iOMWgyMuzDDxlr1ZgVD BlTPDkJtbsytZ1FSEOv 12lLPEnu1VlNQZfsZ7q pBYtTRhxdqZhyAY2TSy hdmUgYmVlbiBkZXZlbG 9bNLEcWR8hBFRjzmPss r9usgUtDWRfNXGfG4Du cmlzdGljcyBkZXRlcm1 boqPtPCT3YRXEGQ4LCW CtWNQhi31aJWGcfFqva W3ilJHhkqBtREZeu2Op dX5fhMSQTKVtD5trUU6 yFJgor2MonCFgoANspS U2LFAjd1BlJvIsgjOwf UOqpKUzB9DcgLibA7uw XTSfJSOtgdJpqPXmp3A pODBubGD3sWPwYK5NKn WIq62jLYViWXAKicKgV CRrgWfkfQS6bcV4mY0k LiBJZiBhcHBsaWNhYmx mCIBnp027sn4dbbT9KZ FoSTLtvszsg6ZkFDQaR YHpoW75QPQqKSFyeu7q hezovYJwkrByQ7Qalfz 3uT7eMODcHFfgMRGoHK ZzMjJcbGFuZzEwMzNca GljaFxmMVxkYmNoXGYx VQosN6gvVlHrShEwTee wYXJ9 MD [facility] Specimen Collection -Bone [id number] 19:53:30 Test Item Value Reference Range Interpretation Comments Ken Ap Link (test [id number] code = 17031) Cytogenetics Yes (Received) (test code = 8304) GUILLAUME (test code = GUILLAUME) Please schedule in the morning. Thank youPremedication type:->NoneAspiration laterality:->UnilateralP rocedure type:->AspirateProcedure type:->Clot MD [facility] Interpretation Antibody Screen Zkgftrbc5514-02-49 16:54:16 Test Item Value Reference Range Interpretation Comments TMP Auto Neg At the present ABSC Interp time, patient (test code = plasma shows no ____TERE VASQUEZ 7535) evidence of RBC MARCI Denny alloantibodies. Joe ALICIA by: Ayesha HERNANDEZ Date/Time: 11:54 AM CDT Transcribed Ian e/Time: 03.03.2020 11:5 4 AM CDTElectronical ly Signed By: TERE PEPPER, on 03.03.2020 1 1:54 AM MD [place] marrow pgkfsjtbxs3872-07-37 15:30:00Bhavik Armas NP 03/03/2020 1:32 PM Procedure: Bone marrow aspiration Date/Time: 03/03/2020 1:15 PMProvider Information:Performed by: Bhavik Armas NPAuthorized by: LISA Griffith [employer] Dispatcher present: yesAssistant: Daiana DarlingMedical riveting machine operator tape control used?: riveting machine operator tape control not needed Patient Diagnosis:Pre-procedure diagnosis: CMMLPost- procedure diagnosis: unchanged Indication:Indication: evaluation of disease status Anesthesia:Anesthesia: local infiltrationPatient anesthetized by: advanced practice providerLocal anesthetic: lidocaine 1% without epinephrineAnesthetic total (ml): 10 Sedation:Patient sedated?: patient not sedated Aspirate Site(s):Laterality: leftSite location: posterior iliac junaid tInstrument(s) used: BraveNewTalent needleInstruments placed by: advanced practice provider Dressing:Dressing: compression bandage Post-Procedure Patient Assessment:Patient tolerance: wellEstimated blood loss: minimalComplications/Observations: no complications Discharge/Disposition:Discharge instructions: verbalPatient discharged to: discharge to homeDisposition mode: ambulatory Sample Disposition:Testing performed: flow cytometry, cytogenetics and pathologyResearch samples(s): yesProtocol #: [id number] [facility] Aspirate volume obtained (mL) - left: 19Visual [...] complications were observed immediately after the procedure.MD DaoThckugcvIGGVl7240-89-58 14:24:02 Test Item Value Reference Range Interpretation Comments ABORh. (test code = 882-1) A POS MD DaoClkamala Expiration [id number] 14:23:59 Test Item Value Reference Range Interpretation Comments T & S Expiration (test code = 03/06/2020 5318) MD DaoAntibody Quomrn8595-70-32 14:23:38 Test Item Value Reference Range Interpretation Comments ABSC. (test code = 890-4) Negative ABSC MD DaoFractionated Yzvsuouga8770-80-95 13:10:10 Test Item Value Reference Range Interpretation [...] Protein, Sodium, Urea nitrogen (BUN). MD DaoUric Oiau3435-17-30 13:10:09 Test Item Value Reference Range Interpretation Comments Uric Acid (test code = 7955) 6.9 mg/dL 3.4-7 MD DaoTotal Rvdugbz2169-80-39 13:10:08 Test Item Value Reference Range Interpretation Comments Total Protein (test 7.1 g/dL 6.4-8.3 code = 7649) GUILLAUME (test code = GUILLAUME) Components: Albumin, Alkaline Phosphatase, ALT, AST, Total Bilirubin, Calcium, Chloride, CO2 (bicarbonate), Serum Creatinine, Glucose, Potassium, Total Protein, Sodium, Urea nitrogen (BUN). MD DaoPhosphorus Agkwr3391-03-45 13:10:07 Test Item Value Reference Range Interpretation Comments Phosphorus (test code = 6817) 3.8 mg/dL 2.5-4.5 MD DaoOnrdmqaiATJ0032-17-24 13:10:05 Test Item Value Reference Range Interpretation Comments GGT (test code = 5647) 13 U/L 8-61 MD DaoGlomerular Filtration Bnrt2046-42-67 13:10:04 Test Item Value Reference Range Interpretation [...] Protein, Sodium, Urea nitrogen (BUN). MD DaoCalcium Mokob6710-88-26 13:10:03 Test Item Value Reference Range Interpretation Comments Calcium Lvl (test code 9.6 mg/dL 8.4-10.2 = 5258) GUILLAUME (test code = GUILLAUME) Components: Albumin, Alkaline Phosphatase, ALT, AST, Total Bilirubin, Calcium, Chloride, CO2 (bicarbonate), Serum Creatinine, Glucose, Potassium, Total Protein, Sodium, Urea nitrogen (BUN). MD DaoMagnesium Ayddx1300-79-52 13:10:02 Test Item Value Reference Range Interpretation Comments Magnesium (test code = 6359) 2.3 mg/dL 1.6-2.6 MD DaoSvwuvwemJAH3217-93-91 13:10:01 Test Item Value Reference Range Interpretation Comments ALT (test code = 11 U/L <=41 4705) GUILLAUME (test code = GUILLAUME) Components: Albumin, Alkaline Phosphatase, ALT, AST, Total Bilirubin, Calcium, Chloride, CO2 (bicarbonate), Serum Creatinine, Glucose, Potassium, Total Protein, Sodium, Urea nitrogen (BUN). MD DaoFulsdrwtSVJ0862-81-84 13:10:00 Test Item Value Reference Range Interpretation Comments LDH (test code = 172 U/L 135-225 Results gre ater than 1651 6111) U/L may not be reliable due to matrix effec t with extended diluti on as it exceeds the man ufacturer s recommended l imit. Caution should be exercised when interpreti ng such values and done in conjunction wit h clinical context. MD DaoIcqxthkuWTZ7229-41-43 13:09:58 Test Item Value Reference Range Interpretation Comments BUN (test code = 15 mg/dL 6-23 5055) GUILLAUME (test code = GUILLAUME) Components: Albumin, Alkaline Phosphatase, ALT, AST, Total Bilirubin, Calcium, Chloride, CO2 (bicarbonate), Serum Creatinine, Glucose, Potassium, Total Protein, Sodium, Urea nitrogen (BUN). MD DaoAlkaline Dxivkuhxmdt6469-23-49 13:09:57 Test Item Value Reference Range Interpretation Comments Alk Phos (test code = 64 U/L 40-129 4768) GUILLAUME (test code = GUILLAUME) Components: Albumin, Alkaline Phosphatase, ALT, AST, Total Bilirubin, Calcium, Chloride, CO2 (bicarbonate), Serum Creatinine, Glucose, Potassium, Total Protein, Sodium, Urea nitrogen (BUN). MD DaoGlucose [id number] 13:09:56 Test Item Value Reference Range Interpretation Comments Glucose Level 98 mg/dL 70-99 Reference rang e is (test code = valid for fasti ng 5699) specimens only. Guidelines established by the [place] [employer] guidelines (Standards of Medical [...] day, meet the criteria fo r diabetes mellashanti us. GUILLAUME (test code = Components: GUILLAUME) Albumin, Alkaline Phosphatase, ALT, AST, Total Bilirubin, Calcium, Chloride, CO2 (bicarbonate), Serum Creatinine, Glucose, Potassium, Total Protein, Sodium, Urea nitrogen (BUN). MD DaoAlbumin [id number] 13:09:55 Test Item Value Reference Range Interpretation Comments Albumin Lvl (test code 4.4 3.5- 5.2 gm/dL = 4763) GUILLAUME (test code = GUILLAUME) Components: Albumin, Alkaline Phosphatase, ALT, AST, Total Bilirubin, Calcium, Chloride, CO2 (bicarbonate), Serum Creatinine, Glucose, Potassium, Total Protein, Sodium, Urea nitrogen (BUN). MD DaoAspartate Aneuuorxdttlysng8197-36-29 13:09:54 Test Item Value Reference Range Interpretation Comments AST (test code = 20 U/L <=40 4731) GUILLAUME (test code = GUILLAUME) Components: Albumin, Alkaline Phosphatase, ALT, AST, Total Bilirubin, Calcium, Chloride, CO2 (bicarbonate), Serum Creatinine, Glucose, Potassium, Total Protein, Sodium, Urea nitrogen (BUN). MD DaoElectrolyte [id number] 13:09:53 Test Item Value Reference Range Interpretation Comments Sodium Lvl (test code = 135 136- 145 mEq/L L 7355) Potassium Lvl (test code = 3.9 3.5- 5.1 mEq/L 6854) Chloride (test code = 102 98- 107 mEq/L 5279) CO2 (test code = 5227) 23 22- 29 mEq/L Anion Gap (test code = 10 4- 14 mEq/L 9325) GUILLAUME (test code = GUILLAUME) Components: Albumin, Alkaline Phosphatase, ALT, AST, Total Bilirubin, Calcium, Chloride, CO2 (bicarbonate), Serum Creatinine, Glucose, Potassium, Total Protein, Sodium, Urea nitrogen (BUN). Lab Interpretation (test Abnormal code = 16030-8) MD Dao.Serum Rdbbguoaqt7695-68-36 13:09:52 Test Item Value Reference Range Interpretation Comments Creatinine (test code = 1.11 mg/dL 0.67-1.17 5399) GUILLAUME (test code = GUILLAUME) Components: Albumin, Alkaline Phosphatase, ALT, AST, Total Bilirubin, Calcium, Chloride, CO2 (bicarbonate), Serum Creatinine, Glucose, Potassium, Total Protein, Sodium, Urea nitrogen (BUN). MD DaoUrinalysis with Dztuzxfgqrv4100-79-83 12:47:50 Test Item Value Reference Range Interpretation [...] implementation of new instrumentation in the [facility], allowing greater sensitivity of measurement. Urinalysis results reported by the [facility] using existing instrumentation, as well as Urinalysis testing performed manually or by backup methodology at the [facility] will remain relatively unchanged. New reporting parameters and units will now be reported for all campuses. MD DaoUrinalysis w/Microscopic if [id number] 12:44:09 Test Item Value Reference Range Interpretation [...] NEG Lab Interpretation (test code = Abnormal 34099-2) MD DaoXsdyzmldYbcoagwopufq3641-74-02 12:43:19 Test Item Value Reference Range Interpretation Comments Neutrophil % (test code = 65.7 % 42-66 15559-4) Lymphocyte % (test code = 15.3 % 24-44 L 737-7) Monocyte % (test code = 13.2 % 2-7 H 744-3) Eosinophil % (test code = 5.1 % 1-4 H 713-8) Basophil % (test code = 0.2 % 0-1 707-0) IGRE % (test code = 0.5 % 0-0.4 H IGRE % c ount 78119-0) includes Metamyelocytes, Myelocytes, and Promyelocytes. Neutrophil Abs (test code 4.12 K/uL 1.7-7.3 = 753-4) Lymphocyte Abs (test code 0.96 K/uL 1-4.8 L = 732-8) Monocyte Abs (test code = 0.83 K/uL 0.08-0.7 H 743-5) Eosinophil Abs (test code 0.32 K/uL 0.04-0.4 = 712-0) Basophil Abs (test code = 0.01 K/uL 0-0.1 705-4) IG Abs (test code = 0.03 K/uL 0-0.04 58592-5) Lab Interpretation (test Abnormal code = 50660-9) MD Dao.SFN0977-78-74 12:43:14 Test Item Value Reference Range Interpretation [...] (test code = 60.6 fL 35.1-46.3 H 00913-0) RDW-CV (test code = 15.6 % 12-15.5 [...] differential. Lab Interpretation Abnormal (test code = 91052-9) MD DaoPeripheral Smear for Bone Iwcvcz3205-43-83 12:43:13 Test Item Value Reference Range Interpretation Comments Peripheral Smear (test code = 4273) PSMEAR MD DaoGlucose, Jdfpee5758-04-31 16:12:20 Test Item Value Reference Range Interpretation Comments Glucose Random 104 mg/dL 70-199 Effective 12/02 12/16, (test code = the glucose 9360) [...] = Please schedule GUILLAUME) every Saturday/ starting /6Schedule in Fast Track MD DaoGeneral Laboratory Add-On [id number] 00:17:18 Test Item Value Reference Range Interpretation Comments Ordered (test code = 6568) Test Added Test Needed (test code = 7604) GGT MD DaoPathology Outside Hkfmlorrkiragg0498-13-05 15:40:00 Test Item Value Reference Range Interpretation Comments Materials Received (test d4yedEGyZNImlCDxWkIi code = 9973) DCLeZWCgn3raASBioTDm ZzEwMzNcZnRuYmpcdWMx CPBdNzLgp7hlz175jNVp b6kpJVTpYwU6iHVqROKg sRChY077DYMuLKejn8wc e5UcBVJtxRSqq0V0QIIT cgbrfIk4zPkeP55zv7I9 XfelO4exJQAqGJKrW2Fe FJ1fLVBqSlz2MWR8ROP4 RQVbMFLgD7FwGN9vUKCq xQNgRGc7g0hpmUniSNUy VIW8u4lnVHjhljKhUF6v yk8rgHv6u4dbhaPcSEFr DACkjVCOGBIzV7MwrVyv Ll6feTb2xDnxCusfWSV0 Vil6NF1dgi55rjb2yKsz VDSahyjyArE5JFkcBLAf jftjKOw0TUtjURJrxAog MFxtYXJncjcyMFxtYXJn rRX4JBMcsQSkS0BqKJMm BGqgHJOqgba5MiGeDm7y xBOlcOrnFGsfb7ojw1al xIJeWps8TZIjZmAeGdsv DRnvr1Kxv0rxCLZinq4s TSI5tOMdiMjrr2F1iTOo EGYnfLWtvaEjPPSnuo00 pGDskTDscWPbeq5saiVj cUPzpYSfDRM3bPBvxjPg XQHypIPeYBSqQX0odUBc OYIklG2ttwfrAHCaUkNb pzzrNOBlnKgpccIiLw9k nYzjMPV7SCtcX3tuqP8b MyS4QGgkJ0tboE4zYZz8 HCcysOA6GLKfnC5gIA6f cdizb7eaRgMuLH6fueup h7btVqBaPU1xjgo2t3sf YKS6HMhjLIHzLdQ2srL7 NDBcaGVhZGVyeTcyMFxm q874KLT9ZvPfBUUui2Ay D2DzrSvwY64fjXbaT18q NFWjwVkynY4qcTtxbS5y KaAjYiFsPDi9uu47TSr1 mjuteGvzERn7ndByTPTi HPA1CPLfrFZzMWEsH4y4 rbTvCRTxAOS7EZFdhEYj FXEjH9w7nwYlVWR9BCx2 cnBhZGRmdDNcdHJwYWRk YjBcdHJwYWRkZmIzXHRy lTWohDNlcEUgxN7rpIdg NIAzyWJoeD6yXRN2PRAy cmgzMjBcdHJoZHJcbHRy zj86OMAwcnGphYAoaCao rNGhPGH6TBQbFIMrNPIn RRZ2MYJnJmLcmyMuGPqd bGJyZHJiXGJyZHJzXGJy TCW4JSZwAtLcxkNrSMan bGJyZHJsXGJyZHJzXGJy QYW2RNWdHjMfgwKlTQff bGJyZHJyXGJyZHJzXGJy RXF0EQTbOkPumkVnZOqn bHBhZHQxMFxjbHBhZGZ0 Q4biwYQgVRMoJYnarLBd QAMvF8qwpHGpZHvvCZLi cGFkZmwzXGNscGFkYjBc K4joRAPvYjMqO4VlhLe2 MDAwXGNsdmVydGFsdFxj vIHpTZX2GNFyBIBlGJYn XIC0JESuCqViiuNcFByh bGJyZHJiXGJyZHJzXGJy GGT2PTCyGaPvtqBlYXwv bGJyZHJsXGJyZHJzXGJy JEW9XNNuEvRqmeJaAQlg bGJyZHJyXGJyZHJzXGJy EFW4DFWhPlDswnDvSFjx bHBhZHQxMFxjbHBhZGZ0 Z3xqzXZnMBAmXIdexOLh LJAeK9ditXMoAEycPRUl cGFkZmwzXGNscGFkYjBc A8iqZQWhVsWnL0VkiQm3 NjAwXGNsdmVydGFsdFxj eGWiNVM2LZNhFCLkSQAa NAR2OJHzOeInidTgYZmr bGJyZHJiXGJyZHJzXGJy NBE9JQTbWnXpprNcWOoh bGJyZHJsXGJyZHJzXGJy DIJ3IYIqQiZkcrVlJMnc bGJyZHJyXGJyZHJzXGJy MTM3UWEhBsIddsIsDGix bHBhZHQxMFxjbHBhZGZ0 U9jzoCPbAPLiCYwshCYk WCKrJ9lrwLKtWJnnSALg cGFkZmwzXGNscGFkYjBc X7ljMUQwWmXdS1EjwFx5 YsUkPEPdouOuxL09Ypws d6RmCDSuVPD7PHuyTTid bFxwbGFpblxmMVxmczIw AMcywmccVFCvZAvaK3rz FqVtJHBriSusWXlus7Un XGYxXGNmMlxmczIwXGIg PHDbVLLfdE9lAokmI9Kr dP1rZTvuSyhiA0vvZUHm x4UjpA9lWBomjMCvjink MVxmczIwXGxhbmcxMDMz TJdzV5ptCdXcSGPxwZdq HUpsb4FuODSaSDErSjus znIfQUz0sgRzTAJvcHor oWAoTHzvjiKtcKiqx2Cv haAujKpnRIAuUUt8yiQn xxrqnAq3sKVfiTsnGOZc fZsbuF5zYvTwChQsIAwy bGFpblxmMVxmczIwXGxh ctsuHZZbLRsnF1quAwUc RQBmoWeuECnhv1IdNLBb DRGiSvoxtiRvMJGxA46b bGVjdGVkXHBsYWluXGYx XGZzMjBcbGFuZzEwMzNc aGljaFxmMVxkYmNoXGYx NMtrF3viJuUqW2NhQAZi RlMvgPAuB8qsT3DekYlt YXJkXGludGJsXHNzcGFy OUA6jVIownSzhTPvzOAp DWEnOSadEQI2pRFleego aEXurlsfRWiwpsD9IJWa YWluXGYxXGZzMjBcbGFu ZzEwMzNcaGljaFxmMVxk QjDiMTKsRGkiY5dvCxCo E8RgVQDqHvDkRqSKRVFn aXZlZFxwbGFpblxmMVxm czIwXGxhbmcxMDMzXGhp X9pbRaQxJGRmwQarEVhs i0WeOQGqRKQhAtgnwzOd DKp4fiZtAIUqnSereP06 Nbudzx16LXIkr0qtDLGx C2HcgQIbIJRomKLwQSjg MDhcdHJwYWRkZmwzXHRy cGFkZHIxMDhcdHJwYWRk ZnIzXHRycGFkZHQwXHRy uHCgBEQ1F0d3duBmKDNh UEb2atOfMBVlQoMbcCNg RRS2ALb4HqyycnG1jRRm T9o2TidhllEsSOphuAVb xu48DUJtxbGfqMZpkKph kPJcEXK5RIXaLEGiIAIi KVG7UJDsFjFaymEfLGfu bGJyZHJiXGJyZHJzXGJy TEV0DKAwXuXsvhDiUBvw bGJyZHJsXGJyZHJzXGJy BIU0PENqEuUgryZzNBbf bGJyZHJyXGJyZHJzXGJy ILB1CMSuWoHsbgWfXYqy bHBhZHQxMFxjbHBhZGZ0 K8ilfRFgWDMtPTlpjWPu KHJfV1lgsWUzKWizSDXm cGFkZmwzXGNscGFkYjBc I8jmMFVpZdPgX1KvfQn6 MDAwXGNsdmVydGFsdFxj tPJhDBU9PHRjIAUgMYYr BHR0FGEuYzCsfdPdRGke bGJyZHJiXGJyZHJzXGJy NAH2DJBiSoGhyvPgUMfz bGJyZHJsXGJyZHJzXGJy SRT9ZNYiMfYchyFdYGmv bGJyZHJyXGJyZHJzXGJy ANA5UZHwQjCzaoSyFJry bHBhZHQxMFxjbHBhZGZ0 E8pqlDImSTXnUAqwbRRz OCGqZ7zhtWGhXQrdSYNy cGFkZmwzXGNscGFkYjBc S4jlTANvDaCnQ5ZxeBg2 NjAwXGNsdmVydGFsdFxj hGLlLIC5UYMxTCQxLWXg QXX6OYFaIlGnkuAxACor bGJyZHJiXGJyZHJzXGJy KJU0EODeIvZsatEyBCkw bGJyZHJsXGJyZHJzXGJy XEJ6SZAiXxYvyuIjCJxj bGJyZHJyXGJyZHJzXGJy KSG1TMHnPeEwrbGnCXqn bHBhZHQxMFxjbHBhZGZ0 U8svhHFqBCMmHJcnhGBn LQFmV9qyiVKbLTmsUMVx cGFkZmwzXGNscGFkYjBc W9jvDPLfUdCyD1VjxSu4 MmUgGIIhbqRmdY84Cofy q0WgAELjGOB6MXdyOVev bFxwbGFpblxmMFxmczI0 XHBsYWluXGYxXGZzMjBc bGFuZzEwMzNcaGljaFxm DBeyBaAnCVUlJRepZ7fp VpMzA0EdBKWjJfPxOI8w QCBjNO0wYMM2BOExTbKy Z5KuWFYAYI2EO1AhEVWJ N4IvlAcbjC8sGlOnYmRk HQdvIY2xCOHzU5lzeXTp JQYiHOPdM8llYsRkwU7t aFxmMVxjZjJcZnMyMFxs dHJjaFxjZWxsXHBhcmRc bS31Oymyd0AsVNJuWLH7 MFxzMFxxbFxwbGFpblxm VBnysqN6LPGyKHclMOJk XGZzMjBcbGFuZzEwMzNc aGljaFxmMVxkYmNoXGYx MFcaG3uqHkUaS2GwBARh XdGpIa48KzUeHdYxeLsn xB1aDtUmZcNyBEskIV0h EOGiF4slxBJrKBPhSVHc X4hlZoKuxJ6egZuwGLqf ZjJcZnMyMFxsdHJjaFxj GYiqTFKtyzHoaY11Ebaa v3JvTZPmSGN9YEreYRuu bFxwbGFpblxmMFxmczI0 XHBsYWluXGYxXGZzMjBc bGFuZzEwMzNcaGljaFxm PVwrApEyYCJyJNapL6ml LtNuR2PcHNBvEsZwKq3h DF8oZIKgTSVyWKkjYWNe XGZzMjBcbGFuZzEwMzNc aGljaFxmMVxkYmNoXGYx WFmzQ9rpJdWkN2OeQTYl VgFerEXvL8pnT6ToqOfv ilXoyDciq5sihFKeNUel l1EefdIelVcaRPMoZEHs XHBsYWluXGYwXGZzMjRc fXhcgT9zLkZrYxDvBBmt LB4bEGMeR4tukIHuATUb SNKkV5vuHhWbzB3pjNco MVxmczIwXHBhcn0= Diagnosis (test code = l6npwZEeEFFwyHW3KQOc 34) FNOzj0nzs0KguARwaGZt ABhclNHiejLubz16tYY2 qP96YU6lELSrAvG6QLZj gkJ5Cfk9SUFdACSlaYKt C467i7rey3isbyFnnAG3 yBjcTFThXMT7NcHjXKJ7 RAW3SAo3vKNiLmAkhXzn XVubGRA9MtNdOKp6cGQf LmZpqUn2EWUmMCL9QLv9 LWf3oGP1XEPnmWo9ZdVl GCH9BtuqLQm7oBu8PVAp sUk0QgJpVBL6UAHrPICe uNfdyY4xZpKmSLdxFVRt Hv0vWATnPANyu6uzQNHa n9WlbHezY6pgxMQeRGU3 jY1rGMDhz0LwhxX6EKEm lFPsdhNhWV8bXDQynBUw IGltcHJpbnQgKEFEMjAt EbRcTJXfMQH1GdUrOcSy NZt1FCEmnazmMDTasAc0 OhMjbDxpZnDmYTQJAz7S ASBwMNnOPQ4QJ19MZ4rJ DQXnJUYLV7UGJBSvLyGf MUXvDYTmRBXOLXVXF8hx YXJccGFyZFxmMFxwYXJc cGFyfQ== Comment (test code = x8dcgEYsZLXamOL5ZZXa 9835) IMBku3cns6KgmZQxaIWc WGgabFFtcrDobb78qOY1 tT95JQ0pBISfRaA5PKFj uhD5Utq6FPXoKTGhkUTn V406t2cpd0teumFogEF5 fVxwYXJkXHBsYWluXGZz MjAgRnJvbSBvdXRzaWRl RHQxAK9cIUNeYR5diT2m qkRjMWA3tWKteDJ1jQTu dHUpGAKfcSKpu2ezhKUb vAIwo69iE9b4l8Tzjy9h cGFyXGYwXHBhciBQZXJp zMcultZtOIWyq35xDMRn ZWQoFUTkr2pfTDydkEhw Q6i3g9PwhjG0gJLoMGfc S8NaVDFaJHJprtTzdKxp L9z2KSVpLO1tAW7gmj8p zLPmxh1vMOSmwljsYHKd Jp9lNLGpZVQbp4vxO03t UHQtjX0uz9kwQS1pGYBz w7Crz1BorBluqxVpw8tk kkXbAPr3kSNpT2SbbYMf MXWvIAvxWAkcoJWquu13 IHdpdGggdHJpbGluZWFn UPRsFK9wcF3ix8bqg6mf DiZDVHhjz9DpmK4qtExy cqXttlUghVMvg3ZylQM3 pRRuXONwUTC8IVFlKYIj cPXycS9kAUJhQKGyx9Ue yt6tWQ7paT2yb1AxlB7a ZZOyl6gbPC97UUGwaBFa gNMzsDmmeZlxC3v1OOVo CvjmP1OpVD2dBS04oV5O XOFtVHvhK8enhYdubVFf iE1zltPex8JiWB7xH1Tw OTK3o6Z6yVQjRUWfZBCl x29eSTUoQVChzUZjnPmp cTmjz4heJlL6OEPsUQPs uTczFMIWODdcG9cfpSyr jORfL0YlmyMmd9C2fZTk EYL0wJxszGEybhWriLWx LW4lgQ9xrjXwAOVubQrw C7G5KFBbwTalwNzvzPPp VRKvfVQ8LONkCK7kSZSa jUFtil4tCJXnXXsqpd2p DAHgmtPavXPousRpkO31 alZovyDmbVwpmCPeJ0Sp fFTcir6dHYVliD3hwNVb z70dTEGscWktkFdcqpDs yKNywfUwuE28nnMhrdSb qCdypIDuH2GajZTvIULm T5IaiJ7vAehdsk3ipUIn IFxwYXJccGFyIEJvbmUg cAZcpf70CRFgGBIeekZg hL04ET29DObipQZxY6Jy bWFaRISfZMWhbYH1bCOw oXbwuM4ezbLxd5RcKFfi lUvzuHTfV3Tsu5VduxDv sVC1vMCljYewrr4zXRO6 yZvpc7olLFHfaUzyDDRy SHCqVQbqnSr5RZk4TMUl T2SrQAHsOQ3mXNTnLKee qndwD0i6JRGfQIPwXNZx HTC3BHGcNHTfrzEgp76p OBHejvNdyNgdi8enVpS7 VNJsGNJhAJU5bePhweTj YC97IOVnIaW5e8YioVBi TDbuig4tdFBoKDBpirEK XFXgo0I0p6fsDOTgVOKk s0fqD8woxvUsm4S9AkXd e523CL35nI0mQBlmM5k3 v4kacqB7vHXla7Y0KYll u2gtc9DiHORbrs0ysQKk MS9fuSEbl3QrrG41kDCm MhENRGTWCOAwh1orNZYl faDdDf9olz4neNx9oJLf FM9qSBKvPKGILE40VNO1 pResU2YLDFzmGHVWQV2Q B2WyFWAskFnrf9HvBrPt KjEdo3mkE0ArLOFww0Q4 MOcws4ghp9ViFK6nE5C1 lMRrBTVcs2GriYLeJz6c LNiAFiSjAcBgD7OkWIID TFIsIGFuZCBNUEwuIFxw YXJ9 Disclaimer (test code = k6buiEKaVRSboGYvKvZy 9844) SWBmRRCfs8llJATkgLRe ZzEwMzNcZnRuYmpcdWMx KBXrJeLib5uus588xYTh w6arUWJeVzE0zVLsVDYe pJRkH454HCYlSMyxk3ib e3ZjSPZgjMWlt0K4LAJT dpuxmTi6dJezT00dh5L9 LgrxK7fiPUZaDPPrC6Ka DY4bNXBvHja1PSP2LUW6 AHZgWOErO4DvFY6eRGEj nYAyCNf6k8uvsAmiFRMn ZMM9n1uaSBjozsYyHL3j xf0jeDw7w9xzoaPhHTVc VEMijVHVSJNsS4ZvkOau Ni4dbVi8cLpvWeopUHG8 Uve5YR3fft20boz1nXhq LWBrodamGbY3WTidPNIr ebzkPRl0MKhpYULkvRB4 XIVxgKIgL6QkZDCvFP2x wna7XCD2LYbjUEWbRsY7 NDBcaGVhZGVyeTcyMFxm p245UAG4TuSoHT3hU3Vv s5J6cP6tpGVfOUJdzOGh JzJtWCSkwi3uuCOoDEcd t4UvRZT2gbK2yLRjyBIt UMMqUO57Cvpxi7QuWpxk YWC7HQUgyaOyi3Lgy5ei YqAvlhIkR0iyH7IpRXFr RTOrYYFkGjTjluJlt3Od g5UqrBWkxPx0d2ayRXUq KCXunYgsn6miMYS1MNUo U0T6oUDrj9yhNVupEVSk dAO0pbW2GXYdrNLiE6Vo pB4uDCCfZO3vrdb9c6gf DGQ8KDlhLAYhZcY9igE3 NDBcaGVhZGVyeTcyMFxm e776XNF0RtGiMVBqe3Rh G3FjuUzrD33oeUpwD43v IQJkbKwwnB6jwFlmgE9y ZjBcZnMyNFxxbFxwbGFp sfplLCigbtF6SCvjryjr MXYlAKzjH5aiLaRyBSSg gSvzHUnhh9MvYMReXCBh PpierqA2JBCWj62hZOUl g7XrHTGjyH5wbKYgGFrg bsEbyJR5PYehrmYjXiYg zxVoBEKcgT8sQGDhQP5c UTHuxwChvh2xtdWhHWRv WHNpX7DyrcrwqOghwaLa BMMxts1lgnQdYDI5NDHZ LG1FHKHpRGIcd29oPJJz gJvxpN7zgZYzxnYuLDGp o7BdpT9ctWCXJPGbP9xu FN3hRPhbz7LyoCEozPIh aTF2TDEgc7WgUnDaneUl hKKmfHIgJ6TncGglS3uk IXBjMTMlhcBzkFUiz0Og FVRloGP0iYRjOV5KEaES x58hYXSeQSZIngJmBDDr mFgmmZN1toB8bS7yQtEZ ZiBhcHBsaWNhYmxlLCBj y166wz2mtlT8KQSoLBAt rdudg3GeFPSgBBDmoZ96 IEBeDFYzbn6cakgohHGz ijXsV7Cvmtq8eI8eXORo YWluXGYxXGZzMjJcbGFu ZzEwMzNcaGljaFxmMVxk XcKiRKAzRLyqL1jsMhGd ZnMyMlxwYXJ9 [facility] Spec[facility] Collection -Bone [id number] 18:41:43 Test Item Value Reference Range Interpretation Comments Flow Cytometry Yes (Received) (test code = 8319) Beaker Ap Link (test [id number] code = 90434) GUILLAUME (test code = GUILLAUME) Premedication type:->NoneAspiration laterality:->UnilateralB iopsy laterality:->UnilateralP rocedure type:->ClotProcedure type:->BiopsyProcedure type:->AspirateSelect the Bone Marrow Stains:->IronSelect the Bone Marrow Stains:->Reticulin/Trich brenton MD DaoCtlecular Diagnostics Specimen Collection -Bone [id number] 15:07:54 Test Item Value Reference Range Interpretation Comments Molecular Diagnostics Yes (Received) (test code = 8400) Pathology (Qualitative) (test code = 8412) GUILLAUME (test code = GUILLAUME) Premedication type:->NoneAspiration laterality:->Unilateral Biopsy laterality:->Unilateral Procedure type:->ClotProcedure type:->BiopsyProcedure type:->AspirateSelect the Bone Marrow Stains:->IronSelect the Bone Marrow Stains:->Reticulin/Tric hrome MD DaoBone marrow aspiration w/ [id number] 19:00:00LISA Carpenter 12/15/2019 8:01 AM Procedure: Bone marrow aspiration/biopsy Date/Time: 020 3:18 PM Provider Information:Performed by: CORIE Carpenteruthorized by: LISA Griffith [employer] Dispatcher present: yesAssistant: Aga Krishnan riveting machine operator tape control used?: riveting machine operator tape control not neededPatient Diagnosis:Pre-procedure diagnosis: CMMLPost-procedure diagnosis: unchanged [...] well. Kayla Greene APRN supervised the procedure.MD Andradeassium Venous 2019-12-14 17:09:30 Test Item Value Reference Range Interpretation Comments V K (test code = 20403-4) 5.1 3.4- 4.5 mEq/L H Lab Interpretation (test code = Abnormal 25354-1) MD King HIV 1/2 Ag&Ab Path [id number] 14:20:41 Test Item Value Reference Range Interpretation Comments HIV 1/2 Ag&Ab Negative for Interp (test HIV-1 antigen and code = 9394) HIV-1/HIV-2 ____BARB antibodies. No Monisha NEWBERRYate d by: laboratory Ayesha JARVIS evidence of HIV Date/Time: 0 12.11.2019 infection. If 9:20 AM CDT acute HIV Transcribed Ian e/Time: infection is 12.11.2019 9:20 AM suspected, CDTElectronical ly Signed consider testing By: maikel TELLES for HIV-1 RNA. 12.11.2019 9: 20 AM C MD King RPR Path [id number] 14:20:40 Test Item Value Reference Interpretation Comments Range TMP RPR Path The Rapid Interpretation Plasma Reagin (test code = (RPR) assay is [place] RLY 201946) negative. If a Monisha NEWBERRYat ed by: syphilis BARB infection is CONIDictated suspected, Date/Time: 12.01 please perform 9:20 AM CDT a Treponemal Transcribed Ian e/Time: specific 12.11.2019 9:20 AM screening CDTElectronical ly assay. Signed By: TAVO NEWBERRY on 12.01 9:20 AM Bayron King HCV Ab Path [id number] 14:20:39 Test Item Value Reference Range Interpretation Comments HCV Ab Path There is NO Interp (test serologic code = 8923) evidence of ____KIMBERLY Hepatitis C CONI,Dictated by: virus antibody. BARB LIEBERMAN,Dictated Date/Time: 12.01 9:20 AM CDT Transcribed Ian e/Time: 12.11.2019 9:20 AM CDTElectronical ly Signed By: BARB GRESHAM, on 12.11.2019 9:20 AM Bayron King HBcAb Path [id number] 14:20:38 Test Item Value Reference Range Interpretation Comments HBcAb Path There is NO Interp (test serologic code = 8924) evidence of ____KIMBERLY Hepatitis B CONI,Dictated by: virus core BARB NEWBERRY Dictated antibody. Date/Time: 12.01 9:20 AM CDT Transcribed Ian e/Time: 12.11.2019 9:20 AM CDTElectronical ly Signed By: BARB GRESHAM, on 12.11.2019 9:20 AM Bayron King HBsAg Path [id number] 14:20:37 Test Item Value Reference Range Interpretation Comments HBsAg Path There is NO Interp (test serologic code = 8922) evidence of ____BARB detectable CONI,Dictated by: Hepatitis B virus BARB MORGAN,Ayesha surface antigen. Date/Time: 12.11.2019 9:20 AM CDT Transcribed Ian e/Time: 12.11.2019 9:20 AM CDTElectronical ly Signed By: BARB GRESHAM, on 12.11.2019 9:20 AM C MD NorrisP HTLV Path [id number] 14:20:36 Test Item Value Reference Range Interpretation Comments TMP HTLV I/II Patient plasma Interp (test shows no code = 7549) evidence of ____BARB HTLV-I/II CONI,Dictated by: antibodies. BARB NEWBERRY, Dictated Please retest in Date/Time: 12.11.2019 6 months if an 9:20 AM CDT exposure is Transcribed Ian e/Time: suspected. 12.11.2019 9:20 AM CDTElectronical ly Signed By: BARB GRESHAM, on 12.11.2019 9:20 AM Bayron Humphrey Plasma Reagin (RPR) [Syphilis SCREENING]2019-12-11 04:57:30 Test Item Value Reference Range Interpretation Comments RPR Screening (test code = Non Reactive Non Reactive 282040) MD Aponte C Virus [id number] 04:17:10 Test Item Value Reference Range Interpretation Comments HCVAb. (test code Non Reactive Non Reactive Performed at: = 5762) [facility] [address] [address] MD Aponte B Surface [id number] 04:16:51 Test Item Value Reference Range Interpretation Comments HBsAg. (test code Non Reactive Non Reactive Performed at: = 5747) [facility] [address] [address] MD AndersonHepatitis B Total Ig Core Ab (SCREENING) (anti-HBc total Ig; HBcAb total Ig)2019-12-11 04:16:48 Test Item Value Reference Range Interpretation Comments HBcAb. (test code Non Reactive Non Reactive Performed at: = 5742) [facility] [address] [address] MD DaoHTLV I/II [id number] 04:16:23 Test Item Value Reference Range Interpretation Comments HTLV I/II Ab. Non Reactive Non Reactive Performed at:Betty Burnett (test code = 5842) [facility] [place] [address] MD DaoHIV-1/2 Antigen and Antibodies, Fourth Eyltlmgwtj3933-13-24 00:13:43 Test Item Value Reference Range Interpretation Comments HIV 1/2 Ag & Ab, Non Reactive Non Reactive Performed a t: 4th Gen (test code [facility] = 9280) [address] [address] MD DaoResearch Protocol [id number] 21:05:02 Test Item Value Reference Range Interpretation Comments Research Prot (test code = 7189) 193149 MD DaoVitamin B12 [id number] 19:22:54 Test Item Value Reference Range Interpretation Comments Vitamin B12 Lvl (test code = 8017) 442 pg/mL 211-946 MD [id number] 19:05:24 Test Item Value Reference Range Interpretation Comments Ferritin Lvl (test code = 5608) 219 ng/mL 30-400 MD DaoConfirm [id number] 18:37:44 Test Item Value Reference Range Interpretation Comments ABORh Confirm. (test code = 882-1) A POS MD [id number] 18:01:40 Test Item Value Reference Range Interpretation Comments Erythropo Lvl (test code = 5523) 20.2 2.6- 18.5 mIU/mL H Lab Interpretation (test code = Abnormal 80456-3) MD DaoNT-Pro BNP (In-House)2019-12-10 17:45:30 Test Item Value Reference Range Interpretation Comments NT ProBNP (test code = 9385) 394 pg/mL <=125 H Lab Interpretation (test code = Abnormal 16847-5) MD DaoPartial Thromboplastin [id number] 17:23:50 Test Item Value Reference Range Interpretation Comments PTT (test code = 6773) 31.8 24.2- 36.0 second(s) MD DaoProthrombin [id number] 17:23:49 Test Item Value Reference Range Interpretation Comments PT (test code = 6746) 13.5 12.0- 14.3 second(s) INR (test code = 5973) 1.06 0.90-1.10 MD DaoZzvntdcnYqehdehccy1505-72-42 17:23:24 Test Item Value Reference Range Interpretation Comments Fibrinogen (test code = 5610) 290 mg/dL 214-503 MD DaoD [id number] 17:23:23 Test Item Value Reference Range Interpretation Comments D-Dimer (test code = 1.20 0.10- 0.50 H The cut off value for 5419) mcg/ml FEU exclusion of ve nous thromboembolism is <0.50 mcg/mL FEUs (fi brinogen equivalent unit s). Lab Interpretation Abnormal (test code = 76202-9) MD [id number] 17:20:49 Test Item Value Reference Range Interpretation Comments TSH (test code = 7578) 1.27 0.27- 4.20 mcunit/mL MD DaoFolate [id number] 17:19:59 Test Item Value Reference Range Interpretation Comments Folate Lvl (test 12.3 ng/mL 4.8-24.2 Hemolyzed s pecimens with code = 5625) Hemolysis Index >30.0 (30 mg/dL or vi sible hemolysis) may cause interference an d give falsely high re sults. MD DaoRetic [id number] 16:43:11 Test Item Value Reference Range Interpretation Comments Retic Cnt Auto (test code = 09484-5) 2.4 % 0.5-1.5 H RETHE (test code = 6973) 37.7 pg 23.2-37.5 H IRF (test code = 02218-3) 25.2 % 2.3-18 H Lab Interpretation (test code = Abnormal 89991-1) MD DaoCOVID-19 (SARS-CoV-2) PCR-Asymptomatic [id number] 18:10:47 Test Item Value Reference Range Interpretation Comments COVID19 (SARS Not Detected Not Detected This test is a CoV-2) Result qualitative (test code = reverse-transcr iptase 90940-5) polymerase artem n reaction (RT-PC R) developed for t he Lasha STEVO 6800 syst em and intended [...] fied by the Microbiolog y Laboratory at [facility]. Results must be interpreted wit hin the context of all relevant clinical and la boratory findings and sh ould not form the sole b asis for a diagnosis or treatment decision.[employer] al controls are in cluded to assess [...] sting if clinically dave cated. COVID19 SARS CASING GRADER Swab Source (test code = 19324) COVID19 SARS New Patient Indication (test code = 40556) [facility] with [facility] count + automated [id number] 10:19:00 Test Item Value Reference Range Interpretation [...] K/CU MM L MPV (test code = 95435-0) 10.0 fL 9.4-12.4 nRBC (test code = 413) 0 0- 0 /100 WBC Lab Interpretation (test code = Abnormal 80500-8) [facility] Xtxwstjrqhyy9917-28-24 10:19:00 Test Item Value Reference Range Interpretation [...] comments: Lab Interpretation (test Abnormal code = 31559-0) [facility]T [facility] & AUTO [id number] 10:19:00 Test Item Value Reference Range Interpretation [...] Received comment: User comments: Slide comments:Basic Metabolic [id number] 05:19:00 Test Item Value Reference Range Interpretation Comments Sodium (test code = 136 meq/L 331-363 1509-2) Potassium (test code 4.7 meq/L 3.5-5.1 = 2823-3) Chloride (test code = 106 meq/L 98-107 2075-0) CO2 (test code = 22 meq/L 22-29 8-9) BUN (test code = 15 mg/dL 7-21 3094-0) Creatinine (test code 1.11 mg/dL 0.57-1.25 = 2160-0) Glucose (test code = 95 mg/dL 70-105 2345-7) Calcium (test code = 8.6 mg/dL 8.4-10.2 37384-4) EGFR (test code = 65 mL/min/1.73 [place] [address]-8) ACCURATE CREATININE ROBERTA MELLISA IN PREDICTING GLOMERULAR FILT RATION RATE. ESTIMATED GFR IS NOT APPLICAB LE FOR DIALYSIS JONY TS. [facility] [id number] 05:19:00 Test Item Value Reference Range Interpretation [...] APPLICABLE FOR DIALYSIS PATIEN TS. ECG 12 [id number] 14:36:11Interface, External Ris In - 04/09/2019 2:36 PM CSTVentricular Rate 60 BPMAtrial Rate 60 BPMP-R Interval 168 msQRS Duration 100 msQ-T Interval 428 msQTC Calculation(Bazett) 428 msP [place] 69 degreesR [place] -59 degreesT [place] 33 degreesSinus rhythm with marked sinus arrhythmiaLeft anterior fascicular blockNonspecific ST and T wave abnormalityAbnormal ECGWhen compared with ECG of 24-SEP-2018 09:29,Premature atrial complexes are no longer PresentConfirmed by MD Guillen Roberto ([id number]) on 04/09/2019 2:36:08 [facility] [id number] 10:45:00 Test Item Value Reference Range Interpretation Comments CROSSMATCH (test code = COMPATIBLE 2264) Unit ABO (test code = A Pos 2640909) UNIT NUMBER (test code = [id number] 934-0) Status (test code = RETURNED FROM ISSUE 5787054) Blood Bank Product (test RED BLOOD CELLS code = 2263) PRODUCT CODE (test code = E0193L77 933-2) [facility] ACTIVATED CLOTTING [id number] 09:50:00 Test Item Value Reference Range Interpretation Comments Activated Clotting Time 208 sec Refe rence Range: 74-137 (test code = 441) seconds, B aseline/TESTED AT [place] [address] [address] [facility] 7[address] 0 [facility]PO[facility]-[id number] 09:50:00 Test Item Value Reference Range Interpretation Comments ACTIVATED CLOTTING TIME 208 sec Refe rence Range: (BEAKER) (test code = 74-137 seconds, 441) Baseline/TESTED AT [address] [address] [id number] 09:13:00 Test Item Value Reference Range Interpretation Comments ACTIVATED CLOTTING TIME 246 sec Refe rence Range: (BEAKER) (test code = 74-137 seconds, 441) Baseline/TESTED AT [address] [address] 0 CBC W/PLT COUNT & AUTO [id number] 07:02:00 Test Item Value Reference Range Interpretation [...] Received comment: User comments: Slide comments:BASIC METABOLIC [id number] 06:34:00 Test Item Value Reference Range Interpretation [...] TS. Type and screen, automated (For the [facility] Lab Only)2019-04-08 12:31:00 Test Item Value Reference Range Interpretation Comments ABO/RH AUTOMATED (BEAKER) (test A POSITIVE code = 2260) Ab Scrn (test code = 890-4) NEGATIVE [facility] W/PLT COUNT & AUTO [id number] 11:06:00 Test Item Value Reference Range Interpretation [...] Albumin (test code = 4.5 g/dL 3.5-5 61028-1) Alkaline Phosphatase 85 U/L 40-150 (test code = 6768-6) Total Bilirubin (test 0.4 mg/dL 0.2-1.2 code = 1975-2) Sodium (test code = 141 meq/L 720-673 9563-2) Potassium (test code = 4.9 meq/L 3.5-5.1 2823-3) Chloride (test code = 107 meq/L 98-107 2075-0) CO2 (test code = 29 meq/L 22-29 8-9) BUN (test code = 12 mg/dL 7-21 3094-0) Creatinine (test code 1.12 mg/dL 0.57-1.25 = 2160-0) Glucose (test code = 104 mg/dL 70-105 2345-7) Calcium (test code = 9.6 mg/dL 8.4-10.2 99494-9) AST (test code = 24 U/L 5-34 1920-8) ALT (test code = 15 U/L 6-55 1742-6) EGFR (test code = 64 mL/min/1.73 [place] [address]-0) ACCURATE CREATININE ROBERTA MELLISA IN PREDICTING GLOMERULAR FILTRATION RATE . ESTIMATED GFR I S NOT APPLICABLE FOR DIALYSIS PATIEN TS. [facility] HospitalLipid [id number] 10:22:00 Test Item Value Reference Range Interpretation Comments Triglycerides (test 140 mg/dL code = 2571-8) Cholesterol (test code 166 mg/dL = 2093-3) HDL (test code = 43 mg/dL 2085-9) LDL Calculated (test 95 mg/dL code = 55446-3) GUILLAUME (test code = GUILLAUME) Triglyceride Reference Range: Low Risk <150 Borderline 150-199 High Risk 200-499 Very High Risk >=500 Cholesterol Reference Range: Low Risk <200 Borderline 200-239 High Risk >240 HDL Cholesterol Reference Range: Low Risk >=60 High Risk <40 LDL Cholesterol Reference Range: Optimal <100 Near Optimal 100-129 Borderline 130-159 High 160-189 Very High >=190 [facility] HospitalLIPID [id number] 10:22:00 Test Item Value Reference Range Interpretation [...] 130-159 High 160-189 Very High >=190COMPREHENSIVE METABOLIC [id number] 10:22:00 Test Item Value Reference Range Interpretation [...] 347) EGFR (BEAKER) (test 64 mL/min/1.73 ESTIMA BRE GFR IS code = 1092) sq m NOT ACCURATE CREATININE CLEARANCE IN PREDICTING GLOMERULAR FILTRATION RATE . ESTIMATED GFR I S NOT APPLICABLE FOR DIALYSIS PATIEN TS. PT/[id number] 10:11:00 Test Item Value Reference Range Interpretation Comments Protime (test code = 13.2 11.9- 14.2 5902-2) seconds INR (test code = 1.0 <=5.9 6301-6) PTT (test code = 35.7 22.5- 36.0 12101-8) seconds GUILLAUME (test code = GUILLAUME) Effective 10/29/2018: PT Reference Range ChangeNew: 11.9-14.2 Previous: 11.7-14.7 RECOMMENDED COUMADIN/WARFARIN INR THERAPY RANGESSTANDARD DOSE: 2.0-3.0 Includes: PROPHYLAXIS for venous thrombosis, systemic embolization; TREATMENT for venous thrombosis and/or pulmonary embolus.HIGH RISK: Target INR is 2.5-3.5 for patients wiht mechanical heart valves. Lab Interpretation Normal (test code = 89084-8) [facility] HospitalPT/[id number] 10:11:00 Test Item Value Reference Range Interpretation [...] is2.5-3.5 for patients wiht mechanical heart valves.TISSUE [id number] 16:04:00Surgical Pathology Report Case: [id number] Authorizing Provider: Madison Wang MD Collected: 09/24/2018 1109 Ordering Location: [facility] Received: 09/24/2018 1335 PERIOPERATIVE SERVICES Pathologist: Alfonso Wong MD Specimen: Pl aque, RIGHT CAROTID PLAQUE ARTERY, RIGHT CAROTID, ENDARTERECTOMY:CALCIFIC ATHEROSCLEROTIC PLAQUE Signing Pathologist Direct Phone Line: [phone] signed by Alfonso Wong MD on 09/29/2018 at 4:04 [id number]; [id number] stenosis right side Right carotid plaque Specimen is received in a formalin-filled container labeled withthe patient's information and labeled "right carotid plaque" and consists of a tubular shaped segment of calcified tissue measuring 3.5 cm in length and 0.8 cm in diameter. Manager Skilled sections are submitted in A1 for decalcification. [...] changes in the mediastinum noted. Signed: Jerry Chahal MDReport Verified Date/Time: 09/28/2018 09:56:53 Reading Location: [address] Ortho Consult Reading Room [id number] 06:09:00 Test Item Value Reference Range Interpretation Comments MAGNESIUM (BEAKER) (test code = 1.7 mg/dL 1.6-2.6 627) BASIC METABOLIC [id number] 06:09:00 Test Item Value Reference Range Interpretation [...] FOR DIALYSIS PATIEN TS. MR, BRAIN, WITHOUT [id number] 17:40:00FINAL REPORT MRI brain Comparison: CT dated [...] clear. Impressions:No acute intracranial process. Signed: Israel Thomasort Verified Date/Time: 09/27/2018 17:40:08 Reading Location: [address] Neuro Reading Room [facility] METABOLIC [id number] 05:35:00 Test Item Value Reference Range Interpretation [...] /100 WBC 0-0 (test code = 413) [id number] 06:27:00 Test Item Value Reference Range Interpretation Comments MAGNESIUM (BEAKER) (test code = 1.9 mg/dL 1.6-2.6 627) BASIC METABOLIC [id number] 06:27:00 Test Item Value Reference Range Interpretation [...] (test code = 413) CT, BRAIN, WITHOUT [id number] 14:11:00FINAL REPORT CT, BRAIN, WITHOUT CONTRAST INDICATION: [...] Date/Time: 09/25/2018 14:11:51 Reading Location: [facility] Radiology Reading Room [id number] 04:50:00 Test Item Value Reference Range Interpretation Comments MAGNESIUM (BEAKER) (test code = 1.7 mg/dL 1.6-2.6 627) BASIC METABOLIC [id number] 04:50:00 Test Item Value Reference Range Interpretation [...] WBC 0-0 (test code = 413) GLUCOSE-STAT [id number] 14:26:00 Test Item Value Reference Range Interpretation Comments GLUCOSE RANDOM (BEAKER) (test code 118 mg/dL 70-110 H = 652) HGB/HCT (H&H) - STAT [id number] 14:26:00 Test Item Value Reference Range Interpretation Comments HEMOGLOBIN (BEAKER) (test code = 9.7 g/dL 13.0-16.8 L 410) HEMATOCRIT (BEAKER) (test code = 29.0 % 40.0-50.0 L 411) CBC W/PLT COUNT & AUTO [id number] 11:47:00 Test Item Value Reference Range Interpretation [...] Received comment: User comments: Slide comments:BLOOD GAS, [id number] 10:40:00 Test Item Value Reference Range Interpretation [...] (test code = 1819) 100.0 % GLUCOSE-STAT [id number] 10:40:00 Test Item Value Reference Range Interpretation Comments GLUCOSE RANDOM (BEAKER) (test code 113 mg/dL 70-110 H = 652) HGB/HCT (H&H) - STAT [id number] 10:40:00 Test Item Value Reference Range Interpretation Comments HEMOGLOBIN (BEAKER) (test code = 10.5 g/dL 13.0-16.8 L 410) HEMATOCRIT (BEAKER) (test code = 31.0 % 40.0-50.0 L 411) SODIUM NA-STAT [id number] 10:39:00 Test Item Value Reference Range Interpretation Comments SODIUM (BEAKER) (test code = 381) 135 meq/L 135-148 POTASSIUM-STAT [id number] 10:39:00 Test Item Value Reference Range Interpretation Comments POTASSIUM (BEAKER) (test code = 3.8 meq/L 3.6-5.5 379) HEMOGLOBIN [id number] 10:36:00 Test Item Value Reference Range Interpretation Comments HEMOGLOBIN A1C (BEAKER) (test code = 5.3 % 4.3-6.1 368) [id number] 09:00:00 Test Item Value Reference Range Interpretation Comments MAGNESIUM (BEAKER) (test code = 2.1 mg/dL 1.6-2.6 627) COMPREHENSIVE METABOLIC [id number] 09:00:00 Test Item Value Reference Range Interpretation [...] NOT APPLICABLE FOR DIALYSIS PATIEN TS. LIPID [id number] 09:00:00 Test Item Value Reference Range Interpretation [...] 100-129 Borderline 130-159 High 160-189 Very High >=[id number] 08:56:00 Test Item Value Reference Range Interpretation Comments PARTIAL THROMBOPLASTIN TIME 36.8 seconds 22.5-36.0 H (BEAKER) (test code = 760) PROTHROMBIN TIME/[id number] 08:55:00 Test Item Value Reference Range Interpretation Comments PROTIME (BEAKER) (test code = 13.8 seconds 11.7-14.7 759) INR (BEAKER) (test code = 370) 1.1 <=5.9 RECOMMENDED COUMADIN/WARFARIN INR THERAPY RANGESSTANDARD DOSE: 2.0 - 3.0 Includes: PROPHYLAXIS forvenous thrombosis, systemic embolization; TREATMENT for venous thrombosis and/or pulmonary embolus.HIGH RISK: Target INR is 2.5-3.5 for patients with mechanical heart valves.[id number] 05:31:00 Test Item Value Reference Range Interpretation Comments PHOSPHORUS (BEAKER) (test code = 4.0 mg/dL 2.3-4.7 604) [id number] 05:31:00 Test Item Value Reference Range Interpretation Comments MAGNESIUM (BEAKER) (test code = 2.0 mg/dL 1.6-2.6 627) BASIC METABOLIC [id number] 05:31:00 Test Item Value Reference Range Interpretation [...] PATIEN TS. CBC W/PLT COUNT & AUTO [id number] 05:11:00 Test Item Value Reference Range Interpretation [...] = 2801) RAD, CHEST, 1 VIEW, NON [id number] 08:23:00Reason for exam:->pl effusionShould this be performed [...] trace bilateral pleural effusion. Signed: Lyle Zepeda [facility] Verified Date/Time: 06/16/2018 08:23:01 Reading Location: [facility] Radiology Reading Room CBC (HEMOGRAM ONLY)2018-06-16 05:37:00 [...] = 413) RAD, CHEST, 1 VIEW, NON [id number] 12:25:00Reason for exam:->pl effusionShould this be performed [...] MDReport Verified Date/Time: 06/15/2018 12:25:59 Reading Location: [address] Transitional Reading Room [id number] 06:08:00 Test Item Value Reference Range Interpretation [...] = 413) CBC W/PLT COUNT & AUTO [id number] 11:45:00 Test Item Value Reference Range Interpretation [...] = 3438) Received comment: User comments: Slide comments:[id number] 06:12:00 Test Item Value Reference Range Interpretation Comments MAGNESIUM (BEAKER) (test code = 1.9 mg/dL 1.6-2.6 627) BASIC METABOLIC [id number] 06:12:00 Test Item Value Reference Range Interpretation [...] Specimen slightly ictericCBC W/PLT COUNT & AUTO [id number] 12:36:00 Test Item Value Reference Range Interpretation [...] = 3438) Received comment: User comments: Slide comments:[id number] 06:33:00 Test Item Value Reference Range Interpretation Comments MAGNESIUM (BEAKER) (test code = 1.8 mg/dL 1.6-2.6 627) BASIC METABOLIC [id number] 06:33:00 Test Item Value Reference Range Interpretation [...] PATIEN TS. RAD, CHEST, 1 VIEW, NON [id number] 04:27:00Reason for exam:->post-opShould this be performed at [...] MDReport Verified Date/Time: 06/13/2018 04:27:13 Reading Location: [address] Neuro Reading Room CBC W/PLT COUNT & AUTO [id number] 14:42:00 Test Item Value Reference Range Interpretation [...] changes are seen in the spine. Signed: Madan Crews MDReport Verified Date/Time: 06/12/2018 11:47:39 Reading Location: [facility] Radiology Reading Room BASIC METABOLIC [id number] 06:19:00 Test Item Value Reference Range Interpretation [...] PATIEN TS. RAD, CHEST, 1 VIEW, NON [id number] 09:05:00Reason for exam:->pl effusionShould this be performed at the bedside?->YesFINAL REPORT CLINICAL HISTORY: pl effusion TECHNIQUE: 1 view of the chest. [facility]: 06/10/2018 IMPRESSION: The right central line has been removed. Three chest tubes remain. There is no evidence of pneumothorax. There is bibasilar atelectasis. There is a trace right effusion. The cardiomediastinal silhouette is magnified by technique with sternotomy wires. Signed: Agatha Galvin MDReport Verified Date/Time: 06/11/2018 09:05:55 Reading Location: [facility] Radiology Reading Room [id number] 05:42:00 Test Item Value Reference Range Interpretation Comments MAGNESIUM (BEAKER) (test code = 1.9 mg/dL 1.6-2.6 627) BASIC METABOLIC [id number] 05:42:00 Test Item Value Reference Range Interpretation [...] WBC 0-0 (test code = 413) POCT-GLUCOSE [id number] 19:48:00 Test Item Value Reference Range Interpretation Comments POC-GLUCOSE METER 157 mg/dL 70-110 H TESTED AT [place] [address] ([facility]) (test code = [facility] 1538) [address] POCT-GLUCOSE [id number] 19:48:00 Test Item Value Reference Range Interpretation Comments POC-GLUCOSE METER 128 mg/dL 70-110 H TESTED AT [place] [address] ([facility]) (test code = [facility] 1538) [address] HEMOGLOBIN AND [id number] 13:43:00 Test Item Value Reference Range Interpretation Comments HEMOGLOBIN (BEAKER) (test code = 7.8 GM/DL 13.7-17.5 L 410) HEMATOCRIT (BEAKER) (test code = 23.1 % 40.1-51.0 L 411) LACTIC ACID, ARTERIAL, WHOLE [id number] 09:11:00 Test Item Value Reference Range Interpretation Comments LACTATE BLOOD ARTERIAL (2) 1.4 mmol/L 0.5-2.2 (BEAKER) (test code = 2874) OXYGEN SATURATION, [id number] 08:31:00 Test Item Value Reference Range Interpretation Comments O2 SATURATION (MEASURED) (BEAKER) 70.9 % (test code = 1455) RAD, CHEST, 1 VIEW, NON [id number] 05:56:00while patient is intubated or has chest [...] Stable surgical changes.Additional findings: None. Signed: Jeanie Corona Verified Date/Time: 06/10/2018 05:56:50 Reading Location: [address] Transitional Reading Room [id number] 04:23:00 Test Item Value Reference Range Interpretation Comments PHOSPHORUS (BEAKER) (test code = 3.6 mg/dL 2.3-4.7 604) [id number] 04:23:00 Test Item Value Reference Range Interpretation Comments MAGNESIUM (BEAKER) (test code = 2.3 mg/dL 1.6-2.6 627) BASIC METABOLIC [id number] 04:23:00 Test Item Value Reference Range Interpretation [...] DIALYSIS PATIEN TS. LACTIC ACID, ARTERIAL, WHOLE [id number] 04:15:00 Test Item Value Reference Range Interpretation [...] 0-0 (test code = 413) BLOOD GAS, [id number] 22:21:00 Test Item Value Reference Range Interpretation [...] 1819) 36.0 % LACTIC ACID, ARTERIAL, WHOLE [id number] 21:36:00 Test Item Value Reference Range Interpretation Comments LACTATE BLOOD ARTERIAL (2) 1.6 mmol/L 0.5-2.2 (BEAKER) (test code = 2874) [id number] 21:36:00 Test Item Value Reference Range Interpretation Comments MAGNESIUM (BEAKER) (test code = 2.3 mg/dL 1.6-2.6 627) BLOOD GAS, [id number] 21:15:00 Test Item Value Reference Range Interpretation Comments PH ARTERIAL (BEAKER) (test code = 7.43 7.35-7.45 383) PCO2 ARTERIAL (BEAKER) (test code 35 mmHg 35-45 = 384) PO2 ARTERIAL (BEAKER) (test code 115 mmHg 80-90 H = 385) O2 SATURATION ARTERIAL (BEAKER) 98.3 % 96.0-97.0 H (test code = 386) HCO3 ARTERIAL (BEAKER) (test code 22 mmol/L 21-29 = 388) BASE EXCESS ARTERIAL (BEAKER) -1.7 mmol/L -2.0-3.0 (test code = 387) PATIENT TEMPERATURE (BEAKER) 36.9 C (test code = 1818) FIO2 (BEAKER) (test code = 1819) 60.0 % GLUCOSE-STAT [id number] 21:15:00 Test Item Value Reference Range Interpretation Comments GLUCOSE RANDOM (BEAKER) (test code 149 mg/dL 70-110 H = 652) HGB/HCT (H&H) - STAT [id number] 21:15:00 Test Item Value Reference Range Interpretation [...] 0.0 % 0.0-5.0 code = 1414) CALCIUM, [id number] 18:48:00 Test Item Value Reference Range Interpretation Comments CALCIUM IONIZED (BEAKER) (test 1.16 mmol/L 1.12-1.27 code = 698) PH, BLOOD (BEAKER) (test code = 7.38 1810) BLOOD GAS, [id number] 18:48:00 Test Item Value Reference Range Interpretation [...] (test code = 1819) 100.0 % GLUCOSE-STAT [id number] 18:48:00 Test Item Value Reference Range Interpretation Comments GLUCOSE RANDOM (BEAKER) (test code 146 mg/dL 70-110 H = 652) HGB/HCT (H&H) - STAT [id number] 18:48:00 Test Item Value Reference Range Interpretation Comments HEMOGLOBIN (BEAKER) (test code = 9.2 g/dL 13.0-16.8 L 410) HEMATOCRIT (BEAKER) (test code = 27.0 % 40.0-50.0 L 411) SODIUM NA-STAT [id number] 18:47:00 Test Item Value Reference Range Interpretation Comments SODIUM (BEAKER) (test code = 381) 137 meq/L 135-148 POTASSIUM-STAT [id number] 18:47:00 Test Item Value Reference Range Interpretation Comments POTASSIUM (BEAKER) (test code = 4.1 meq/L 3.6-5.5 379) RAD, CHEST, 1 VIEW, NON [id number] 18:00:00Reason for exam:->sp cardiac surgery intubatedShould this [...] MDReport Verified Date/Time: 06/09/2018 18:00:13 Reading Location: [address] Consult Reading Room [id number] 17:50:00 Test Item Value Reference Range Interpretation Comments POTASSIUM (BEAKER) (test code = 4.2 meq/L 3.5-5.1 379) [id number] 17:50:00 Test Item Value Reference Range Interpretation Comments MAGNESIUM (BEAKER) (test code = 2.1 mg/dL 1.6-2.6 627) [id number] 17:50:00 Test Item Value Reference Range Interpretation Comments GLUCOSE RANDOM (BEAKER) (test code 127 mg/dL 70-105 H = 652) BASIC METABOLIC [id number] 17:50:00 Test Item Value Reference Range Interpretation [...] DIALYSIS PATIEN TS. LACTIC ACID, ARTERIAL, WHOLE [id number] 17:47:00 Test Item Value Reference Range Interpretation Comments LACTATE BLOOD 1.3 mmol/L 0.5-2.2 Specimen sligh tly ARTERIAL (2) (BEAKER) hemoly zed (test code = 2874) [id number] 17:43:00 Test Item Value Reference Range Interpretation Comments PARTIAL THROMBOPLASTIN TIME 29.2 seconds 22.5-36.0 (BEAKER) (test code = 760) [id number] 17:43:00 Test Item Value Reference Range Interpretation Comments FIBRINOGEN LEVEL (BEAKER) (test 264 mg/dl 225-434 code = 658) PROTHROMBIN [id number] 17:42:00 Test Item Value Reference Range Interpretation [...] (BEAKER) (test code = 413) OXYGEN SATURATION, [id number] 17:28:00 Test Item Value Reference Range Interpretation Comments O2 SATURATION (MEASURED) (BEAKER) 80.0 % (test code = 1455) CALCIUM, [id number] 17:27:00 Test Item Value Reference Range Interpretation Comments CALCIUM IONIZED (BEAKER) (test 1.21 mmol/L 1.12-1.27 code = 698) PH, BLOOD (BEAKER) (test code = 7.37 1810) BLOOD GAS, [id number] 17:27:00 Test Item Value Reference Range Interpretation [...] (test code = 1819) 60.0 % GLUCOSE-STAT [id number] 17:27:00 Test Item Value Reference Range Interpretation Comments GLUCOSE RANDOM (BEAKER) (test code 126 mg/dL 70-110 H = 652) HGB/HCT (H&H) - STAT [id number] 17:27:00 Test Item Value Reference Range Interpretation Comments HEMOGLOBIN (BEAKER) (test code = 9.9 g/dL 13.0-16.8 L 410) HEMATOCRIT (BEAKER) (test code = 29.0 % 40.0-50.0 L 411) SODIUM NA-STAT [id number] 17:26:00 Test Item Value Reference Range Interpretation Comments SODIUM (BEAKER) (test code = 381) 138 meq/L 135-148 POTASSIUM-STAT [id number] 17:26:00 Test Item Value Reference Range Interpretation Comments POTASSIUM (BEAKER) (test code = 4.1 meq/L 3.6-5.5 379) [id number] 16:10:00 Test Item Value Reference Range Interpretation Comments ACTIVATED CLOTTING TIME 109 sec TEST ED AT [place] [address] ([facility]) (test code = [address] [place] [address]) [address] [id number] 16:10:00 Test Item Value Reference Range Interpretation Comments ACTIVATED CLOTTING TIME 720 sec TEST ED AT [place] [address] ([facility]) (test code = [place] [place] [address]) [address] [id number] 16:10:00 Test Item Value Reference Range Interpretation Comments ACTIVATED CLOTTING TIME 824 sec TEST ED AT [place] [address] ([facility]) (test code = [place] [address]) [address] [id number] 16:10:00 Test Item Value Reference Range Interpretation Comments ACTIVATED CLOTTING TIME 918 sec TEST ED AT [place] [address] ([facility]) (test code = [place] [place] [address]) [address] SODIUM NA-STAT [id number] 15:34:00 Test Item Value Reference Range Interpretation Comments SODIUM (BEAKER) (test code = 381) 137 meq/L 135-148 POTASSIUM-STAT [id number] 15:34:00 Test Item Value Reference Range Interpretation Comments POTASSIUM (BEAKER) (test code = 4.4 meq/L 3.6-5.5 379) CALCIUM, [id number] 15:34:00 Test Item Value Reference Range Interpretation Comments CALCIUM IONIZED (BEAKER) (test 1.32 mmol/L 1.12-1.27 H code = 698) PH, BLOOD (BEAKER) (test code = 7.36 1810) BLOOD GAS, [id number] 15:34:00 Test Item Value Reference Range Interpretation [...] (test code = 1819) 100.0 % GLUCOSE-STAT [id number] 15:34:00 Test Item Value Reference Range Interpretation Comments GLUCOSE RANDOM (BEAKER) (test code 118 mg/dL 70-110 H = 652) HGB/HCT (H&H) - STAT [id number] 15:34:00 Test Item Value Reference Range Interpretation Comments HEMOGLOBIN (BEAKER) (test code = 9.5 g/dL 13.0-16.8 L 410) HEMATOCRIT (BEAKER) (test code = 28.0 % 40.0-50.0 L 411) [id number] 14:28:00 Test Item Value Reference Range Interpretation Comments PARTIAL THROMBOPLASTIN TIME 28.3 seconds 22.5-36.0 (BEAKER) (test code = 760) [id number] 14:28:00 Test Item Value Reference Range Interpretation Comments FIBRINOGEN LEVEL (BEAKER) (test 187 mg/dl 225-434 L code = 658) PROTHROMBIN [id number] 14:27:00 Test Item Value Reference Range Interpretation Comments PROTIME (BEAKER) (test code = 17.5 seconds 11.7-14.7 H 759) INR (BEAKER) (test code = 370) 1.4 <=5.9 RECOMMENDED COUMADIN/WARFARIN INR THERAPY RANGESSTANDARD DOSE: 2.0 - 3.0 Includes: PROPHYLAXIS forvenous thrombosis, systemic embolization; TREATMENT for venous thrombosis and/or pulmonary embolus.HIGH RISK: Target INR is 2.5-3.5 for patients with mechanical heart valves.PLATELET [id number] 14:17:00 Test Item Value Reference Range Interpretation Comments PLATELET COUNT (BEAKER) (test 127 K/CU MM 150-450 L code = 756) BLOOD GAS, [id number] 14:13:00 Test Item Value Reference Range Interpretation [...] code = 1819) 100.0 % SODIUM NA-STAT [id number] 14:13:00 Test Item Value Reference Range Interpretation Comments SODIUM (BEAKER) (test code = 381) 132 meq/L 135-148 L GLUCOSE-STAT [id number] 14:13:00 Test Item Value Reference Range Interpretation Comments GLUCOSE RANDOM (BEAKER) (test code 170 mg/dL 70-110 H = 652) HGB/HCT (H&H) - STAT [id number] 14:13:00 Test Item Value Reference Range Interpretation Comments HEMOGLOBIN (BEAKER) (test code = 8.5 g/dL 13.0-16.8 L 410) HEMATOCRIT (BEAKER) (test code = 25.0 % 40.0-50.0 L 411) CALCIUM, [id number] 14:12:00 Test Item Value Reference Range Interpretation Comments CALCIUM IONIZED (BEAKER) (test 1.17 mmol/L 1.12-1.27 code = 698) PH, BLOOD (BEAKER) (test code = 7.32 1810) POTASSIUM-STAT [id number] 14:11:00 Test Item Value Reference Range Interpretation Comments POTASSIUM (BEAKER) (test code = 5.1 meq/L 3.6-5.5 379) POTASSIUM-STAT [id number] 13:31:00 Test Item Value Reference Range Interpretation Comments POTASSIUM (BEAKER) (test code = 6.8 meq/L 3.6-5.5 HH 379) BLOOD GAS, [id number] 13:29:00 Test Item Value Reference Range Interpretation [...] code = 1819) 80.0 % SODIUM NA-STAT [id number] 13:29:00 Test Item Value Reference Range Interpretation Comments SODIUM (BEAKER) (test code = 381) 130 meq/L 135-148 L GLUCOSE-STAT [id number] 13:29:00 Test Item Value Reference Range Interpretation Comments GLUCOSE RANDOM (BEAKER) (test code 213 mg/dL 70-110 H = 652) HGB/HCT (H&H) - STAT [id number] 13:29:00 Test Item Value Reference Range Interpretation Comments HEMOGLOBIN (BEAKER) (test code = 7.8 g/dL 13.0-16.8 L 410) HEMATOCRIT (BEAKER) (test code = 23.0 % 40.0-50.0 L 411) BLOOD GAS, [id number] 13:07:00 Test Item Value Reference Range Interpretation [...] code = 1819) 80.0 % BLOOD GAS, [id number] 13:06:00 Test Item Value Reference Range Interpretation [...] code = 1819) 80.0 % SODIUM NA-STAT [id number] 13:06:00 Test Item Value Reference Range Interpretation Comments SODIUM (BEAKER) (test code = 381) 131 meq/L 135-148 L GLUCOSE-STAT [id number] 13:06:00 Test Item Value Reference Range Interpretation Comments GLUCOSE RANDOM (BEAKER) (test code 121 mg/dL 70-110 H = 652) HGB/HCT (H&H) - STAT [id number] 13:06:00 Test Item Value Reference Range Interpretation Comments HEMOGLOBIN (BEAKER) (test code = 7.9 g/dL 13.0-16.8 L 410) HEMATOCRIT (BEAKER) (test code = 23.0 % 40.0-50.0 L 411) POTASSIUM-STAT [id number] 13:05:00 Test Item Value Reference Range Interpretation Comments POTASSIUM (BEAKER) (test code = 4.2 meq/L 3.6-5.5 379) BLOOD GAS, [id number] 11:02:00 Test Item Value Reference Range Interpretation [...] 1819) 90.0 % HGB/HCT (H&H) - STAT [id number] 11:02:00 Test Item Value Reference Range Interpretation Comments HEMOGLOBIN (BEAKER) (test code = 10.7 g/dL 13.0-16.8 L 410) HEMATOCRIT (BEAKER) (test code = 31.0 % 40.0-50.0 L 411) GLUCOSE-STAT [id number] 11:01:00 Test Item Value Reference Range Interpretation Comments GLUCOSE RANDOM (BEAKER) (test code 104 mg/dL 70-110 = 652) SODIUM NA-STAT [id number] 11:01:00 Test Item Value Reference Range Interpretation Comments SODIUM (BEAKER) (test code = 381) 137 meq/L 135-148 POTASSIUM-STAT [id number] 11:01:00 Test Item Value Reference Range Interpretation Comments POTASSIUM (BEAKER) (test code = 3.6 meq/L 3.6-5.5 379) POCT-GLUCOSE [id number] 08:43:00 Test Item Value Reference Range Interpretation Comments POC-GLUCOSE METER 99 mg/dL 70-110 TESTED AT [facility] [address] (BEAKER) (test code = [place] [address] 1538) HEMOGLOBIN [id number] 13:25:00 Test Item Value Reference Range Interpretation Comments HEMOGLOBIN A1C (BEAKER) (test code = 5.5 % 4.3-6.1 368) [id number] 12:54:00 Test Item Value Reference Range Interpretation Comments MAGNESIUM (BEAKER) (test code = 2.0 mg/dL 1.6-2.6 627) COMPREHENSIVE METABOLIC [id number] 12:54:00 Test Item Value Reference Range Interpretation [...] NOT APPLICABLE FOR DIALYSIS PATIEN TS. LIPID [id number] 12:54:00 Test Item Value Reference Range Interpretation [...] 100-129 Borderline 130-159 High 160-189 Very High >=[id number] 12:48:00 Test Item Value Reference Range Interpretation Comments PARTIAL THROMBOPLASTIN TIME 34.6 seconds 22.5-36.0 (BEAKER) (test code = 760) PROTHROMBIN [id number] 12:47:00 Test Item Value Reference Range Interpretation [...] = 2801) CBC W/PLT COUNT & AUTO [id number] 07:06:00 Test Item Value Reference Range Interpretation [...] K/uL 0.00-0.00 H (CELLAVISION)(BEAKER) (test code = 0018) TOTAL COUNTED (BEAKER) (test code = 100 1351) WBC MORPHOLOGY (BEAKER) (test code Normal = 487) PLT MORPHOLOGY (BEAKER) (test code Normal = 486) POLYCHROMATOPHILLIC RBCS(BEAKER) 1+ few (test code = 478) ARTIFACT (CELLAVISION)(BEAKER) Present (test code = 5342) PLATELET CONCENTRATION Decreased (CELLAVISION)(BEAKER) (test code = 3228) Received comment: User comments: Slide comments:[id number] 06:09:00 Test Item Value Reference Range Interpretation Comments MAGNESIUM (BEAKER) (test code = 2.2 mg/dL 1.6-2.6 627) BASIC METABOLIC [id number] 06:09:00 Test Item Value Reference Range Interpretation [...] NOT APPLICABLE FOR DIALYSIS PATIEN TS. POCT-GLUCOSE [id number] 10:41:00 Test Item Value Reference Range Interpretation Comments POC-GLUCOSE METER 135 mg/dL 70-110 H TESTED AT [facility] [address] (BEAKER) (test code = [place] [address]) [address] RAD, CHEST, 1 VIEW, NON [id number] 05:01:00Reason for exam:->excessive coughingFINAL REPORT RAD, CHEST, 1 VIEW, NON DEPT INDICATION: excessive coughing COMPARISON: Prior day's exam FINDINGS: Portable frontal view of the chest. IMPRESSION: Support Lines: Stable. Lungs and pleura: The lungs are clear. No pleural effusion. No pneumothorax.Heart and mediastinum: Stable contours. Additional findings: None. Signed: Jeanie Corona Verified Date/Time: 05/14/2018 05:01:57 Reading Location: [address] Transitional Reading Room CALCIUM, [id number] 04:16:00 Test Item Value Reference Range Interpretation Comments CALCIUM IONIZED (BEAKER) (test 1.11 mmol/L 1.12-1.27 L code = 698) PH, BLOOD (BEAKER) (test code = 7.40 1810) [id number] 04:16:00 Test Item Value Reference Range Interpretation Comments MAGNESIUM (BEAKER) (test code = 2.2 mg/dL 1.6-2.6 627) BASIC METABOLIC [id number] 04:16:00 Test Item Value Reference Range Interpretation [...] APPLICABLE FOR DIALYSIS PATIEN TS. BLOOD GAS, [id number] 04:15:00 Test Item Value Reference Range Interpretation [...] 21.0 % CBC W/PLT COUNT & AUTO [id number] 03:49:00 Test Item Value Reference Range Interpretation [...] (BEAKER) (test code = 2801) SODIUM NA-STAT [id number] 23:50:00 Test Item Value Reference Range Interpretation Comments SODIUM (BEAKER) (test code = 381) 140 meq/L 135-148 POTASSIUM-STAT [id number] 23:50:00 Test Item Value Reference Range Interpretation Comments POTASSIUM (BEAKER) (test code = 3.8 meq/L 3.6-5.5 379) BLOOD GAS, [id number] 23:50:00 Test Item Value Reference Range Interpretation [...] (test code = 1819) 21.0 % GLUCOSE-STAT [id number] 23:50:00 Test Item Value Reference Range Interpretation Comments GLUCOSE RANDOM (BEAKER) (test code 120 mg/dL 70-110 H = 652) HGB/HCT (H&H) - STAT [id number] 23:50:00 Test Item Value Reference Range Interpretation Comments HEMOGLOBIN (BEAKER) (test code = 10.2 g/dL 13.0-16.8 L 410) HEMATOCRIT (BEAKER) (test code = 30.0 % 40.0-50.0 L 411) RAD, CHEST, 1 VIEW, NON [id number] 22:51:00Reason for exam:->central line placementFINAL REPORT Chest, [...] and osseous structures are intact. Signed: Jeanie Coronaeport Verified Date/Time: 05/13/2018 22:51:08 Reading Location: [address] Transitional Reading Room [id number] 19:40:00 Test Item Value Reference Range Interpretation Comments PHOSPHORUS (BEAKER) (test code = 3.0 mg/dL 2.3-4.7 604) [id number] 19:40:00 Test Item Value Reference Range Interpretation Comments MAGNESIUM (BEAKER) (test code = 1.6 mg/dL 1.6-2.6 627) BASIC METABOLIC [id number] 19:40:00 Test Item Value Reference Range Interpretation [...] APPLICABLE FOR DIALYSIS PATIEN TS. HEPATIC FUNCTION [id number] 19:40:00 Test Item Value Reference Range Interpretation [...] U/L 6-55 347) LACTIC ACID, ARTERIAL, WHOLE [id number] 19:36:00 Test Item Value Reference Range Interpretation Comments LACTATE BLOOD ARTERIAL (2) 1.2 mmol/L 0.5-2.2 (BEAKER) (test code = 2874) PROTHROMBIN [id number] 19:25:00 Test Item Value Reference Range Interpretation Comments PROTIME (BEAKER) (test code = 15.1 seconds 11.7-14.7 H 759) INR (BEAKER) (test code = 370) 1.2 <=5.9 RECOMMENDED COUMADIN/WARFARIN INR THERAPY RANGESSTANDARD DOSE: 2.0 - 3.0 Includes: PROPHYLAXIS forvenous thrombosis, systemic embolization; TREATMENT for venous thrombosis and/or pulmonary embolus.HIGH RISK: Target INR is 2.5-3.5 for patients with mechanical heart valves.[id number] 19:25:00 Test Item Value Reference Range Interpretation [...] (BEAKER) (test code = 2801) BLOOD GAS, [id number] 19:12:00 Test Item Value Reference Range Interpretation [...] (test code = 1819) 33.0 % CALCIUM, [id number] 19:12:00 Test Item Value Reference Range Interpretation Comments CALCIUM IONIZED (BEAKER) (test 1.04 mmol/L 1.12-1.27 L code = 698) PH, BLOOD (BEAKER) (test code = 7.40 1810) GLUCOSE-STAT [id number] 19:12:00 Test Item Value Reference Range Interpretation Comments GLUCOSE RANDOM (BEAKER) (test code 135 mg/dL 70-110 H = 652) HGB/HCT (H&H) - STAT [id number] 19:12:00 Test Item Value Reference Range Interpretation Comments HEMOGLOBIN (BEAKER) (test code = 10.7 g/dL 13.0-16.8 L 410) HEMATOCRIT (BEAKER) (test code = 31.0 % 40.0-50.0 L 411) SODIUM NA-STAT [id number] 19:11:00 Test Item Value Reference Range Interpretation Comments SODIUM (BEAKER) (test code = 381) 137 meq/L 135-148 POTASSIUM-STAT [id number] 19:11:00 Test Item Value Reference Range Interpretation Comments POTASSIUM (BEAKER) (test code = 3.7 meq/L 3.6-5.5 379) [id number] 18:24:00 Test Item Value Reference Range Interpretation Comments ACTIVATED CLOTTING TIME 246 sec TEST ED AT [place] [address] (BEAKER) (test code = [facility] [place] [address]) [address] [id number] 18:24:00 Test Item Value Reference Range Interpretation Comments ACTIVATED CLOTTING TIME 175 sec TEST ED AT [place] [address] (BEAKER) (test code = [facility] [place] [address]) [address] BASIC METABOLIC [id number] 16:10:00 Test Item Value Reference Range Interpretation [...] S NOT APPLICABLE FOR DIALYSIS PATIEN TS. [id number] 16:04:00 Test Item Value Reference Range Interpretation Comments PARTIAL THROMBOPLASTIN TIME 34.2 seconds 22.5-36.0 (BEAKER) (test code = 760) PROTHROMBIN [id number] 16:03:00 Test Item Value Reference Range Interpretation [...] code = 2801) XR Chest 1 View [id number] 07:45:24Patient: ALIA WHALEY Jr Date/Time05/02/2018 07:40 CSTReason for ExamChest painReportHISTORY: Chest painLocation code: B40HUBF: CHEST X- RAY, ONE VIEWCOMPARISON: NoneCOMMENT: Frontal view of the chest is provided. Lungs are hyperinflated suggesting some COPD. No focal infiltrate, consolidation, mass lesion, or effusion is seen. Cardiac silhouette is within normal limits. No acute bony abnormalities.IMPRESSION: COPD. No acute infiltrate. Final Dictated by: Dionne Horn LDictated DT/TM: 05/02/2018 7:44 amSigned by: Dionne Horn LSigned (Electronic Signature): 05/02/2018 7:45 amLipid [id number] 19:23:00 Test Item Value Reference Range Interpretation Comments Cholesterol (test 148 mg/dL 0-200 N code = CHOL) Triglycerides (test 123 mg/dL 9-200 N code = TRIG) HDL (test code = 41 mg/dL 40-60 N HDL) Chol/HDL (test code 3.6 Ratio 0.0-5.0 N = CHOLPHDL) LDL, Calculated 82 mg/dL 0-130 N (NOTE)RISK O F HEART (test code = LDLC) DISEASEPu blished by [place] Heart AssociationAnal yte Optim al Boderline Increased RiskC HOL <200 200-239 >240TRI G <150 150-199 >200HDL Male: >60 <40HDL Female: >60 <50 LDL < 100 130-15 9 >160 LDL NEAR OPTIMAL IS 100- 129 VLDL (test code = 25 mg/dL 5-40 N VLDL) LDL/HDL (test code = 2 LDLPHDL)
[2020-03-29] MEDS ORDERED: NA CHLORIDE 0.9% 250 ML ONE (08:55)
[2020-03-29 09:04] VITALS: BMI 3401.6
[2020-03-29 11:48] VITALS: BP 101/62; TEMP 97.3; O2SAT 95
[2020-03-29 12:05] LABS: Platelet Estimate DECR
== END 2020-03-29 10:47 | disposition home or self-care (01) ==
LOC: DS 07:18
PROVIDERS: ATTEND Internal Medicine Medical Oncology
DX: D69.6 Thrombocytopenia, unspecified (principal); D46.9 Myelodysplastic syndrome, unspecified; C93.10 Chronic myelomonocytic leukemia not having achieved remission
CPT/HCPCS: 85025; 36415 ×2; 86900; 86850; 85049; 86901; 80053; 36430; P9035; J7050

== ENCOUNTER 2020-04-15 07:20 | Emergency (ER) | payer OTHER, MEDICARE ==
--- OUTSIDE RECORDS SUMMARY | 2020-04-15 07:23 | XMS REPORT | Clinical Summary ---
:1945 Author Organization [facility] Address [address] [place] [address] Care Team Providers Name Role Phone Matthew Skinner Unavailable Allergies Active Allergy Reactions Severity Noted Date Comments Oxycodone Nausea And Vomiting 09/02/2018 Medications Medication Sig Dispensed Refills Start Date End Date Status aspirin 81 MG EC Take 81 mg by 0 Active tablet mouth daily. multivitamin per Take 1 tablet 0 Active tablet by mouth daily. pantoprazole Take 40 mg by 0 Act fatuma (PROTONIX) 40 MG mouth daily. tablet acetaminophen Take 500 mg by 0 A ctive (TYLENOL) 500 MG mouth as needed tablet for Pain. fluticasone Inhale 1 puff 0 Acti ve propion-salmeterol by mouth via (ADVAIR) 250-50 inhaler 2 (two) mcg/dose diskus times daily. inhaler atorvastatin Take 1 tablet 30 tablet 1 06/17/2018 06/17/2019 E xpired (LIPITOR) 40 MG (40 mg total) tablet by mouth nightly. clopidogrel (PLAVIX) Take 1 tablet 90 tablet 0 09/29/201809/02 75 mg tablet (75 mg total) by mouth daily. metoprolol Take 1 tablet 90 tablet 0 09/29/2018 09/29/2019 Exp ired (TOPROL-XL) 25 MG 24 (25 mg total) hr tablet by mouth daily. mINOCYCLine Take 1 capsule 14 capsule 0 04/10/2019 04/17/2019 (MINOCIN,DYNACIN) 100 (100 mg total) MG capsule by mouth every 12 (twelve) hours for 7 days. Active Problems Problem Noted Date AAA (abdominal aortic aneurysm) 04/09/2019 Carotid stenosis 09/24/2018 Carotid stenosis, asymptomatic, bilateral 09/24/2018 CAD (coronary artery disease) 06/09/2018 S/P carotid endarterectomy 05/14/2018 Hypovolemic shock 05/14/2018 Acute blood loss anemia 05/14/2018 Respiratory insufficiency 05/14/2018 Carotid artery stenosis 05/13/2018 Family History Medical History Relation Name Comments [...] Not on file Last Filed Vital Signs Not on file Plan of Treatment Health Maintenance Due Date Last Done Comments COLON CANCER SCREENING COLONOSCOPY 1945 MEDICARE ANNUAL WELLNESS (YEAR 2 or FIRST YEAR if no 03/04/2012 IPPE) INFLUENZA VACCINE (#1) 2020 PNEUMOCOCCAL 65+ YRS Completed 11/06/2017 Implants Implanted Type Area Social Services Technician Device Shelf Model / Identifier Expiration Serial / Date Lot Thuy Padillain Full Strlprep 5ml [id number] - Sn/A Cement/[place] KING:BIOSCI 08/01/2019 [id number] / Implanted: Qty: 1 on 05/13/2018 at [facility] r/Adhesive N/A / [id number] Stent Excluder C3 23x14.5mmx16 [id number] - [id number] IMPLANTS N/A: BILL QUINONES & 02/11/2022 [id number] / Implanted: Qty: 1 on 04/09/2019 by Che Diego MD at [facility] Aorta ASSC:MED PRDT [id number] / Grft Excluder 14.5x14mm [id number] - [id number] IMPLANTS Left: Jaime QUINONES & 03/30/2021 [id number] / Implanted: Qty: 1 on 04/09/2019 by Che Diego MD at [facility] Iliac ASSC:MED PRDT [id number] / Patch Pericard Bovine 8x14cm [id number] - Sn/A Tissue Left: [employer] 10/10/2022 [id number] / Implanted: Qty: 1 on 05/13/2018 by Madison Lopez MD at [facility] Graft/Substi Neck TECH:SURG INNOV N/A / tute [id number] Patch Periph Vascu-Grd 0.8x8cm [id number] - [id number] Tissue [employer] 02/18/2023 [id number] / Implanted: Qty: 1 on 09/24/2018 by Madison Lopez MD at [facility] Graft/Substi TECH:SURG INNOV / tute [id number] Procedures Procedure Name Priority Date/Time Associated Diagnosis Comme nts VASCULAR DIAGRAM -SCAN 04/20/2019 5:30 PM POLLUTION CONTROL TECHNICIAN after 04/15/2019 Results VASCULAR DIAGRAM -SCAN (04/20/2019 5:30 PM POLLUTION CONTROL TECHNICIAN) Narrative Performed At This result has an attachment that is no t available. after 04/15/2019 Insurance Payer Benefit Plan / Subscriber ID Effective Dates Phone Addre ss Type Group MEDICARE MEDICARE A B [id number] 2011-Presen Medicare t MCR AARP/[place] [id number] 2017-Present Medigap SUPPLEMENT/[facility] [address] ([address] [place] [address] Advance Directives For more information, please contact: [phone] Type Date Recorded Patient Business Reporter Explanati on Power of Block Sorter 06/09/2018 12:00 AM Code Status Date Activated [...]
--- OUTSIDE RECORDS SUMMARY | 2020-04-15 07:31 | XMS REPORT | Continuity of Care Document ---
:1945 Author Organization [facility] t Address [address] [place] [address] Care Team Providers Name Role Phone MARGARET DIONI Primary Care Physician Unavailable SYSTEM, PROVIDER NOT IN Attending Clinician Unavailable Joss ZAMORA Attending Clinician Unavailable VALENTE PRUITT Attending Clinician Unavailable Valente Pruitt MD Attending Clinician EDILBERTO Attending Clinician Unavailable Edilberto GONZALEZ Attending Clinician Ray Murphy RN Attending Clinician Unavailable Marcelo AQUINO Attending Clinician Unavailable Alexandria AQUINO, Les Attending Clinician Unavailable LISSETH Attending Clinician Unavailable Lisseth GONZALEZ Attending Clinician Dexter AQUINO, S Attending Clinician Unavailable Pawel CALIX Attending Clinician Shmuel AQUINO, G Attending Clinician Unavailable Adrien Escobar PharmD Attending Clinician Bayron Warenr Attending Clinician Grace ELECTRICAL MACHINE BUILDER Attending Clinician Jayashree LAU, S Attending Clinician Unavailable Tayo AQUINO Attending Clinician Unavailable LINO Attending Clinician Unavailable Lino GONZALEZ Attending Clinician Phan AQUINO, R Attending Clinician Unavailable Aguilar Stern Attending Clinician Geeta RN, T Attending Clinician Jules RN, M Attending Clinician Unavailable EMMA, Jasen Attending Clinician Unavailable Emma PAVON, Jasen Attending Clinician Vargas PAVON, Joss Attending Clinician Romelia Burt MD Attending Clinician Ramona CALIX, A. Attending Clinician ALEXSANDRA NOGUEIRA Attending Clinician Unavailable Alexsandra Mccann Attending Clinician Benja AQUINO Attending Clinician Unavailable JOSE PENG Attending Clinician Unavailable Jose ePng MD Attending Clinician Maame AQUINO Attending Clinician Genevieve AQUINO, Celsa Attending Clinician Unavailable DARLENE Attending Clinician Unavailable GLORIA WANG Attending Clinician Unavailable MARGARET Attending Clinician Unavailable DARLENE Admitting Clinician Unavailable GLORIA WANG Admitting Clinician Unavailable MARGARET Admitting Clinician Unavailable Payers Payer Name Policy Type Policy Number Effective Date Expiration Date [facility] PART A [id number] 2011 AND B 00:00:00 [employer]-SECON[employer] [id number] 2019 ONLY 00:00:00 Problems Condition Condition Condition Status Onset Resolution Last Treating Co mments Source Name Details Category Date Date Treatment Clinician Date 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:00: 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 00:00: n (clinical) (clinical) 00 Encounter Encounter Disease Active for for 7-27 Anderso antineopla antineopla 00:00: n stic stic 00 chemothera chemothera py py 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 00 not having not having achieved achieved remission remission 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 00:00: n 00 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 00 Immunosupp Immunosupp Disease Active 0 M D ression ression 12-10 Anderso 00:00: n 00 Hypertensi Hypertensi Disease Active 0 M D on on 12-10 Anderso 00:00: n 00 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 12-10 Harold[facility] o coronary coronary 00:00: n artery artery 00 bypass bypass graft graft without without angina angina pectoris pectoris Peripheral Peripheral Disease Active 0 M D vascular vascular 12-10 Harold[facility] o disease disease 00:00: n 00 Increased Increased Disease Active MD uric acid uric acid 12-10 [facility] level level 00:00: n 00 Other Other Disease Active MD specified specified 12-10 [facility] counseling counseling 00:00: n 00 AAA AAA Disease Active 2018-[address] [facility] (abdominal (abdominal -07 [facility] - aortic aortic 00:00: Medical aneurysm) aneurysm) 00 Cent er Carotid Carotid Disease Active [facility] stenosis [facility] Carotid Carotid Disease Active [facility] stenosis, [...] shock 2-12 [facility] Acute Acute Disease Active 2017-[address] [facility] blood loss blood loss 2-12 [facility] - anemia anemia 00:00: Medical 00 Center Respirator Respirator Disease Active 2017-[address] y y 2-12 [facility] - insufficie insufficie 00:00: Me dical ncy ncy 00 Center Carotid Carotid Disease Active 2017-[address] [facility] [address] artery artery 2-11 [facility] stenosis stenosis 00:[facility]: Medica l 00 Center Allergies, Adverse Reactions, Alerts Allergy Allergy Status Severity Reaction(s) Onset Inactive Treating Comm ents Source Name Type Date Date Clinician Oxycodon Propensi Active Nausea And [facility] ty to Vomiting [...] Date Stop Date Quantity Comments Source History SDOH [facility] Std Drinks [facility] Center History SDSC [facility] - Alcohol Binge Medical S[facility] ter Sex Assigned At M MD Zarco on Exposure to Not sure MD Dao SARS-CoV-2 (event) Cigarettes smoked 2020-01-11 2020-01-11 MD Duc valdez current (pack per 00:00:00 00:00:00 day) - Reported Cigarette 2020-01-11 2020-01-11 MD Dao pack-years 00:00:00 00:00:00 Tobacco use and 2020-01-11 2020-01-11 Never used MD Zarco on exposure 00:00:00 00:00:00 Alcohol intake 2020-01-11 2020-01-11 Current drinker of MD Dao 00:00:00 00:00:00 alcohol (finding) Tobacco Comment 2019-12-10 2019-12-10 quit just prior to Betty aDo 00:00:00 00:00:00 left [address] rt. carodid surgery and open heart/ 2 bypass History SDOH 2018-05-08 2018-05-[address] [facility] - Alcohol Frequency 00:00:00 00:00:00 Medical Center Alcohol Comment 2018-05-08 2018-05-[address] [facility] [address] [facility] - 00:00:00 00:00:00 Medical Center History of tobacco 1963-10-01 2018-05-02 Current smoker MD Dao use 00:00:00 00:00:00 Smoking Status Start Date Stop Date Source Former smoker 2020-01-11 00:00:00 2020-01-11 00:00:00 MD [place] son Medications Ordered Filled Start Stop Current Ordering Indication Dosage Frequency Signature Comments Components Source Medication Medication Date Date Medication? Clinician (SIG) Name Name amLODIPine 2019-06 Yes daily. (NORVASC) 12 Anderso 10 mg 19:11: n tablet 46 aspirin 81 2019-06 Yes daily. MD mg EC 12 Anderso tablet 19:11: n 46 metoprolol 2019-06 Yes 12.5mg 12.5 mg MD succinate 12 daily. Anderso (TOPROL XL) 19:11: n 25 mg 24 hr 46 tablet multivitami 2019-06 Yes 1{tbl} Take 1 MD n -12 tablet by Anderso (THERAGRAN) 19:11: mouth as n tablet 46 needed. pantoprazol 2019-06 Yes daily. MD e 12 Anderso (PROTONIX) 19:11: n 40 mg EC 46 tablet acetaminoph 2019-06 Yes 500mg Take 500 M D en 0-29 mg by Anderso (TYLENOL) 16:24: mouth n 500 mg 50 every 6 tablet (six) hours as needed. cefPODoxime 2019-06- Yes Immunosuppr 200mg Take 1 MD (VANTIN) 06-30 ession tablet Haroldo o 200 mg 00:00: 05:59 (200 mg) n tablet 00 :00 by mouth twice daily for 90 days. voriconazol 2019-06 Yes Immunosuppr 200mg Take 1 MD e (VFEND) 06-30 ession tablet Pietro so 200 mg 00:00: 05:59 (200 mg) n tablet 00 :00 by mouth twice daily for 90 days. allopurinol 2019-06 Yes Myelodyspla 300mg Take 1 MD (ZYLOPRIM) 0-23 stic tablet Anderso 300 mg 00:00: syndrome (300 mg) n tablet 00 (clinical) by mouth daily. olopatadine 2019-06 Yes INSTILL 1 M D (PATANOL) 0-13 DROP INTO Pietro so 0.1% 00:00: EACH EYE n ophthalmic 00 TWICE solution DAILY NEEDED FOR ITCHING valACYclovi 2019-06 Yes Myelodyspla 500mg Take 1 MD r (VALTREX) 0-06 stic tablet Haroldo o 500 mg 00:00: syndrome (500 mg) n tablet 00 (clinical) by mouth daily. INV-(2020-0 2019-06 2020- No Myelodyspla 100mg Take 1 MD 025) 0- 10-09 stic 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 Take on days 1-7 in combinatio n with Cedazudrid ine. No food 2 hours before and 2 hours after dose. INV-(2019- 2020- No Myelodyspla 100mg Take 1 MD 025) 003-11 stic tablet Anderso cedazuridin 00:00: 04:59 syndrome (100 mg) n e 100 mg 00 :00 (clinical) by mouth tablet daily for 7 days. Take on days 1-7 in combinatio n with azaCITIDin e. No food 2 hours before and 2 hours after dose. erythromyci 2019- Yes 1{appli Administer MD n (ROMYCIN) 9-22 cation} 1 Pietro so ophthalmic 00:00: applicatio n ointment 00 n to the right eye twice daily. acyclovir Yes 1{tbl} Take 1 MD (ZOVIRAX) 9-22 tablet by Pietro so 800 mg 00:00: mouth 5 n tablet 00 (five) times a day. 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 Take 1 MD 025) 02-03 [facility] 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 Take on days 1-7 in combinatio n with Cedazudrid ine. No food 2 hours before and 2 hours after dose. 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 Take 1 MD 025) 02-03 [facility] tablet Anderso cedazuridin 00:00: 04:59 syndrome (100 mg) n e 100 mg 00 :00 (clinical) by mouth tablet daily for 7 days. Take on days 1-7 in combinatio n with azaCITIDin e. No food 2 hours before and 2 hours after dose. senna-docus 2019- Yes Constipatio 1{tbl} Take 1 MD ate (Senna 8-14 n, not tablet by An derso Plus) 8.6 00:00: otherwise mouth 2 n mg-50 mg 00 specified (two) tablet times a day as needed for constipati on. ondansetron 2019-0 Yes Myelodyspla 8mg Dissolve 1 MD (ZOFRAN-ODT 01-03 stic tablet (8 And erso ) 8 mg 00:00: syndrome mg) on the n disintegrat 00 (clinical) tongue ing tablet every 8 (eight) hours as needed for nausea (prior to chemothera py). INV-(0 2020-0 2020- No Myelodyspla 100mg Take 1 [...] hours before and 2 hours after dose. INV-(0 2020- No Myelodyspla 100mg Take 1 [...] before and 2 hours after dose. allopurinol 2019- Yes Chronic 100mg Take 1 MD (Zyloprim) 7-13 myelomonocy tablet Anderso 100 mg 00:00: tic (100 mg) n tablet 00 leukemia by mouth daily. tadalafiL Yes TAKE 1 MD (CIALIS) 10 5-11 TABLET BY And erso mg tablet 00:00: MOUTH n 00 EVERY 72 HOURS NEEDED aspirin 81 2018-06 Yes 81mg QD Take [address] MG EC 06-10 [facility] 13:[facility] multivitami 2018-06 Yes 1{tbl} QD Take [address] [facility] per 06-10 tablet by [facility] 13:25: mouth [...] QD Take [address] [facility] (PLAVIX) 75 09-29-28 tablet (75 L ukes - mg tablet 00:00: 23:59 mg total) Me dical 00 :00 by mouth Center daily. metoprolol 2019- No 25mg QD Take [address] [facility] (TOPROL-XL) 09-29-28 tablet (25 L ukes - 25 MG 24 hr 00:00: 23:59 mg total) Medical tablet 00 :00 by mouth Center daily. atorvastati 2019- No 40mg QD Take [address] [facility] n (LIPITOR) 06-1715 tablet (40 L ukes - 40 MG 00:00: 23:59 mg total) Medica l tablet 00 :00 by mouth Center nightly. rosuvastati 2018- Yes daily. MD apple (CRESTOR) 06-10 Anderso 10 mg 00:00: n tablet 00 clopidogrel 2019- No daily. (PLAVIX) 75 06-10 Anderso mg tablet 00:00: 00:00 n 00 :00 Vital Signs Vital Name Observation Time Observation Value Comments Source WEIGHT 2020-04-14 13:06:12 85.7 kg WEIGHT 2020-04-14 13:06:12 85.7 kg WEIGHT 2020-03-03 09:09:24 84.2 kg WEIGHT 2020-03-03 09:09:24 84.2 kg WEIGHT 2020-02-04 10:35:22 86.4 kg WEIGHT 2020-02-04 10:35:22 86.4 kg WEIGHT 2020-01-11 11:06:00 87.2 kg WEIGHT 2020-01-11 11:06:00 87.2 kg WEIGHT 2020-01-11 09:07:00 87.2 kg WEIGHT 2020-01-11 09:07:00 87.2 kg WEIGHT 2019-12-24 13:38:43 86.6 kg WEIGHT 2019-12-24 13:38:43 86.6 kg Systolic blood pressure 2020-04-14 19:06:12 148 mm[Hg] MD Dao Diastolic blood pressure 2020-04-14 19:06:12 62 mm[Hg] MD Dao Heart rate 2020-04-14 19:06:12 79 /min MD Pietro coy Body temperature 2020-04-14 19:06:12 36.5 Idania MD Candice pickard Respiratory rate 2020-04-14 19:06:12 18 /min MD Candice pickard Body weight 2020-04-14 19:06:12 85.7 kg MD Pietro coy BMI 2020-04-14 19:06:12 25.29 kg/m2 MD Pietro coy Oxygen saturation in 2020-04-14 19:06:12 100 /min MD Dao Arterial blood by Pulse oximetry Body height 2019-12-10 15:08:03 184.1 cm MD Pietro coy Procedures Procedure Date / Time Performing Clinician Source Performed PREPARE RBC 2020-04-14 19:34:00 Amarilys Montanez MD TOTAL PROTEIN 2020-04-14 18:13:00 Mervat Mercer MD ALBUMIN LEVEL 2020-04-14 18:13:00 Mervat Mercer MD CALCIUM LEVEL TOTAL 2020-04-14 18:13:00 Mervat Mercer MD PHOSPHORUS LEVEL 2020-04-14 18:13:00 Mervat Mercer MD GLUCOSE, RANDOM 2020-04-14 18:13:00 Mervat Mercer MD BLOOD UREA NITROGEN 2020-04-14 18:13:00 Mervat Mercer MD SERUM CREATININE 2020-04-14 18:13:00 Mervat Mercer MD URIC ACID 2020-04-14 18:13:00 Mervat Mercer MD FRACTIONATED BILIRUBIN 2020-04-14 18:13:00 Mervat Mercer MDson ALKALINE PHOSPHATASE 2020-04-14 18:13:00 Mervat Mercer MD rson LACTATE DEHYDROGENASE 2020-04-14 18:13:00 Mervat Mercer MD And erson ALANINE AMINOTRANSFERASE 2020-04-14 18:13:00 Mervat Mercer MD ELECTROLYTE PANEL 2020-04-14 18:13:00 Mervat Mercer MD n MAGNESIUM LEVEL 2020-04-14 18:13:00 Mervat Mercer MD ASPARTATE AMINOTRANSFERASE 2020-04-14 18:13:00 Mervat Mercer COMPLETE BLOOD COUNT W/ 2020-04-14 18:13:00 Mervat Mercer MD nderson DIFFERENTIAL GAMMA GLUTAMYL TRANSFERASE 2020-04-14 18:13:00 Mervat Mercer URINALYSIS WITH MICROSCOPIC 2020-04-14 18:13:00 Mervat Mercer MD IF INDICATED SERUM CREATININE 2020-04-14 18:13:00 Mervat Mercer MD .GLOMERULAR FILTRATION RATE 2020-04-14 18:13:00 Mervat Mercer MD ABORH 2020-04-14 18:13:00 Mervat Mercer MD Results CBC 2020-04-14 18:13:00 Mervat Mercer MD MANUAL DIFFERENTIAL 2020-04-14 18:13:00 Mervat Mercer MD Pietro son ANTIBODY SCREEN 2020-04-14 18:13:00 Mervat Mercer MD URINALYSIS MICROSCOPIC 2020-04-14 18:13:00 Mervat Mercer MD TMP INTERPRETATION ANTIBODY 2020-04-14 18:13:00 Mervat Mercer MD SCREEN NEGATIVE CLOT EXPIRATION DATE 2020-04-14 18:13:00 Mervat Mercer MD Duc rson TMP CROSSMATCH 2020-04-14 18:13:00 Mervat Mercer MD INTERPRETATION TYPE AND SCREEN 2020-03-31 12:24:00 Amarilys Montanez MD Pietro son COMPLETE BLOOD COUNT W/ 2020-03-31 12:24:00 Amarilys Montanez MD DIFFERENTIAL TOTAL PROTEIN 2020-03-31 12:24:00 Amarilys Montanez MD [facility] son ALBUMIN LEVEL 2020-03-31 12:24:00 Amarilys Montanez MD [facility] son CALCIUM LEVEL TOTAL 2020-03-31 12:24:00 Amarilys Montanez MD nderson PHOSPHORUS LEVEL 2020-03-31 12:24:00 Amarilys Montanez MD Duc [facility]son GLUCOSE, RANDOM 2020-03-31 12:24:00 Amarilys Montanez MD [facility] son BLOOD UREA NITROGEN 2020-03-31 12:24:00 Amarilys Montanez MD nderson SERUM CREATININE 2020-03-31 12:24:00 Amarilys Montanez MD Duc [facility]son URIC ACID 2020-03-31 12:24:00 Amarilys Montanez MD Pietro son FRACTIONATED BILIRUBIN 2020-03-31 12:24:00 Amarilys Montanez ALKALINE PHOSPHATASE 2020-03-31 12:24:00 Amarilys Montanez MD LACTATE DEHYDROGENASE 2020-03-31 12:24:00 Amarilys Montanez MD ALANINE AMINOTRANSFERASE 2020-03-31 12:24:00 Amarilys Montanez MD ELECTROLYTE PANEL 2020-03-31 12:24:00 Amarilys Montanez MD And erson MAGNESIUM LEVEL 2020-03-31 12:24:00 Amarilys Montanez MD [facility] ASPARTATE AMINOTRANSFERASE 2020-03-31 12:24:00 Agustina Montanez MD URINALYSIS MICROSCOPIC 2020-03-31 12:24:00 Amarilys Montanez GAMMA GLUTAMYL TRANSFERASE 2020-03-31 12:24:00 Agustina Montanez MD ABORH 2020-03-31 12:24:00 Amarilys Montanez MD Pietro anneliese ANTIBODY SCREEN 2020-03-31 12:24:00 Amarilys Montanez MD Piet[facility] son Results CBC 2020-03-31 12:24:00 Amarilys Montanez MD Pietro anneliese MANUAL DIFFERENTIAL 2020-03-31 12:24:00 Amarilys Montanez MD nderson SERUM CREATININE 2020-03-31 12:24:00 Amarilys Montanez MD Duc rson .GLOMERULAR FILTRATION RATE 2020-03-31 12:24:00 Tomas Montanez MD URINALYSIS WITH MICROSCOPIC 2020-03-31 12:24:00 Tomas Montanez MD IF INDICATED TMP INTERPRETATION ANTIBODY 2020-03-31 12:24:00 Tomas Montanez MD SCREEN NEGATIVE CLOT EXPIRATION DATE 2020-03-31 12:24:00 Amarilys Montanez MD HP CYTOGENETICS BLOOD 2020-03-03 18:23:00 Amarilys Montanez MD COLLECTION HP CG CHROMOSOME ANALYSIS 2020-03-03 18:23:00 Leonela Montanez MD FINAL REPORT HP FC SCATTER FINAL REPORT 2020-03-03 18:23:00 Agustina Montanez MD HEMATOPATHOLOGY BONE MARROW 2020-03-03 18:23:00 MD Feliberto Blackwell INTERPRETATION June HEMATOPATHOLOGY BONE MARROW 2020-03-03 18:23:00 MD Feliberto Blackwell DIFFERENTIAL June IN DIAGNOSTIC BONE MARROW 2020-03-03 15:30:00 Leonela Montanez [...] URIC ACID 2020-03-03 12:18:00 Amarilys Montanez MD Pietrovirgil coy URINALYSIS WITH MICROSCOPIC 2020-03-03 12:18:00 Tomas Montanez MD IF INDICATED TYPE AND SCREEN 2020-03-03 12:18:00 Amarilys Montanez MD Pietrovirgil coy PERIPHERAL SMEAR FOR BONE 2020-03-03 12:18:00 Leonela [...] LEVEL 2020-03-03 12:18:00 Amarilys Montanez MD Pietro [facility] ALKALINE PHOSPHATASE 2020-03-03 12:18:00 Amarilys Montanez MD ALANINE AMINOTRANSFERASE 2020-03-03 12:18:00 Amarilys Montanez MD ASPARTATE AMINOTRANSFERASE 2020-03-03 12:18:00 Agustina Montanez MD TOTAL PROTEIN 2020-03-03 12:18:00 Amarilys Montanez MD Piet[facility] FRACTIONATED BILIRUBIN 2020-03-03 12:18:00 Amarilys Montanez ABORH 2020-03-03 12:18:00 Amarilys Montanez MD [facility] Results CBC 2020-03-03 12:18:00 Amarilys Montanez MD [facility] ANTIBODY SCREEN 2020-03-03 12:18:00 Amarilys Montanez MD [facility] MANUAL DIFFERENTIAL 2020-03-03 12:18:00 Amarilys Montanez MD nderson URINALYSIS MICROSCOPIC 2020-03-03 12:18:00 Amarilys Montanez TMP INTERPRETATION ANTIBODY 2020-03-03 12:18:00 Tomas Montanez MD SCREEN NEGATIVE CLOT EXPIRATION DATE 2020-03-03 12:18:00 Amarilys Montanez MD TYPE AND SCREEN 2020-02-04 15:16:00 Amarilys Montanez MD [facility] COMPLETE BLOOD COUNT W/ 2020-02-04 15:16:00 Amarilys Montanez MD DIFFERENTIAL TOTAL PROTEIN 2020-02-04 15:16:00 Amarilys Montanez MD [facility] ALBUMIN LEVEL 2020-02-04 15:16:00 Amarilys Montanez MD Pietro anneliese CALCIUM LEVEL TOTAL 2020-02-04 15:16:00 Amarilys Montanez MD nderson PHOSPHORUS LEVEL 2020-02-04 15:16:00 Amarilys Montanez MD Duc rson GLUCOSE, RANDOM 2020-02-04 15:16:00 Amarilys Montanez MD Pietro son BLOOD UREA NITROGEN 2020-02-04 15:16:00 Amarilys Montanez MD nderson SERUM CREATININE 2020-02-04 15:16:00 Amarilys Montanez MD Duc rson URIC ACID 2020-02-04 15:16:00 Amarilys Montanez MD [facility] FRACTIONATED BILIRUBIN 2020-02-04 15:16:00 Amarilys Montanez ALKALINE PHOSPHATASE 2020-02-04 15:16:00 Amarilys Montanez MD LACTATE DEHYDROGENASE 2020-02-04 15:16:00 Amarilys Montanez MD ALANINE AMINOTRANSFERASE 2020-02-04 15:16:00 Amarilys Montanez MD ELECTROLYTE PANEL 2020-02-04 15:16:00 Amarilys Montanez MD And erson MAGNESIUM LEVEL 2020-02-04 15:16:00 Am[facility]ilys [facility]z [facility] ASPARTATE AMINOTRANSFERASE 2020-02-04 15:16:00 Agustina Montanez MD GAMMA GLUTAMYL TRANSFERASE 2020-02-04 15:16:00 Agustina Montanez MD URINALYSIS WITH MICROSCOPIC 2020-02-04 15:16:00 Tomas Montanez MD IF INDICATED ABORH 2020-02-04 15:16:00 Amarilys Montanez MD [facility] ANTIBODY SCREEN 2020-02-04 15:16:00 Amarilys Montanez MD [facility] Results CBC 2020-02-04 15:16:00 Amarilys Montanez MD [facility] MANUAL DIFFERENTIAL 2020-02-04 15:16:00 Amarilys Montanez MD [...] PROTEIN 2020-02-01 11:50:00 Amarilys Montanez MD [facility] ALBUMIN LEVEL 2020-02-01 11:50:00 Amarilys Montanez MD [facility] CALCIUM LEVEL TOTAL 2020-02-01 11:50:00 Amarilys Montanez MD nderson PHOSPHORUS LEVEL 2020-02-01 11:50:00 Amarilys Montanez MD Duc rson GLUCOSE, RANDOM 2020-02-01 11:50:00 Amarilys Montanez MD [facility] BLOOD UREA NITROGEN 2020-02-01 11:50:00 Amarilys Montanez MD nderson SERUM CREATININE 2020-02-01 11:50:00 Amarilys Montanez MD Duc rson URIC ACID 2020-02-01 11:50:00 Amarilys Montanez MD [facility] FRACTIONATED BILIRUBIN 2020-02-01 11:50:00 Amarilys Montanez ALKALINE PHOSPHATASE 2020-02-01 11:50:00 Amarilys Montanez MD LACTATE DEHYDROGENASE 2020-02-01 11:50:00 Amarilys Montanez MD ALANINE AMINOTRANSFERASE 2020-02-01 11:50:00 Amarilys Montanez MD ELECTROLYTE PANEL 2020-02-01 11:50:00 Amarilys Montanez MD And erson MAGNESIUM LEVEL 2020-02-01 11:50:00 Amarilys Montanez MD Pietro son ABORH 2020-02-01 11:50:00 Amarilys Montanez MD [facility] ANTIBODY SCREEN 2020-02-01 11:50:00 Amarilys Montanez MD [facility] Results CBC 2020-02-01 11:50:00 Amarilys Montanez MD [facility] MANUAL DIFFERENTIAL 2020-02-01 11:50:00 Amarilys Montanez MD nderson SERUM CREATININE 2020-02-01 11:50:00 Amarilys Montanez MD [facility]son .GLOMERULAR FILTRATION RATE 2020-02-01 11:50:00 Tomas Montanez MD TMP INTERPRETATION ANTIBODY 2020-02-01 11:50:00 Tomas Montanez MD SCREEN NEGATIVE CLOT EXPIRATION DATE 2020-02-01 11:50:00 Amarilys Montanez MD TYPE AND SCREEN 2020-01-27 12:33:00 Amarilys Montanez MD [facility] COMPLETE BLOOD COUNT W/ 2020-01-27 12:33:00 Amarilys Montanez MD DIFFERENTIAL TOTAL PROTEIN 2020-01-27 12:33:00 Amarilys Montanez MD [facility] ALBUMIN LEVEL 2020-01-27 12:33:00 Amarilys Montanez MD [facility] CALCIUM LEVEL TOTAL 2020-01-27 12:33:00 Amarilys Montanez MD nderson PHOSPHORUS LEVEL 2020-01-27 12:33:00 Amarilys Montanez MD Duc rson GLUCOSE, RANDOM 2020-01-27 12:33:00 Amarilys Montanez MD [facility] BLOOD UREA NITROGEN 2020-01-27 12:33:00 Amarilys Montanez MD nderson SERUM CREATININE 2020-01-27 12:33:00 Amarilys Montanez MD Duc rson URIC ACID 2020-01-27 12:33:00 Amarilys Montanez MD [facility] FRACTIONATED BILIRUBIN 2020-01-27 12:33:00 Amarilys Montanez ALKALINE PHOSPHATASE 2020-01-27 12:33:00 Amarilys Montanez MD LACTATE DEHYDROGENASE 2020-01-27 12:33:00 Amarilys Montanez MD ALANINE AMINOTRANSFERASE 2020-01-27 12:33:00 Amarilys Montanez MD ELECTROLYTE PANEL 2020-01-27 12:33:00 Amarilys Montanez MD And erson MAGNESIUM LEVEL 2020-01-27 12:33:00 Amarilys Montanez MD [facility] ABORH 2020-01-27 12:33:00 Amarilys Montanez MD [facility] ANTIBODY SCREEN 2020-01-27 12:33:00 Amarilys Montanez MD [...] RANDOM 2020-01-25 12:01:00 Amarilys Montanez MD Pietro son BLOOD UREA NITROGEN 2020-01-25 12:01:00 Amarilys Montanez MD nderson SERUM CREATININE 2020-01-25 12:01:00 Amarilys Montanez MD Duc rson URIC ACID 2020-01-25 12:01:00 Amarilys Montanez MD Piet[facility] son FRACTIONATED BILIRUBIN 2020-01-25 12:01:00 Amarilys Montanez ALKALINE PHOSPHATASE 2020-01-25 12:01:00 Amarilys Montanez MD LACTATE DEHYDROGENASE 2020-01-25 12:01:00 Amarilys Montanez MD ALANINE AMINOTRANSFERASE 2020-01-25 12:01:00 Amarilys Montanez MD ELECTROLYTE PANEL 2020-01-25 12:01:00 Amarilys Montanez MD And erson MAGNESIUM LEVEL 2020-01-25 12:01:00 Amarilys Montanez MD Pietro son ASPARTATE AMINOTRANSFERASE 2020-01-25 12:01:00 Agustina Montanez MD TYPE AND SCREEN 2020-01-25 12:01: Amarilys Montanez MD Pietro anneliese COMPLETE BLOOD COUNT W/ 2020-01-25 12:01: Amarilys Montanez MD DIFFERENTIAL SERUM CREATININE 2020-01-25 12:01:00 Amarilys Montanez MD Duc rson .GLOMERULAR FILTRATION RATE 2020-01-25 12:01:00 Tomas Montanez MD Results CBC 2020-01-25 12:01:00 Amarilys Montanez MD Pietro anneliese MANUAL DIFFERENTIAL 2020-01-25 12:01:00 Amarilys Montanez MD nderson ABORH 2020-01-25 12:01:00 Amarilys Montanez MD Pietro anneliese ANTIBODY SCREEN 2020-01-25 12:01:00 Amarilys Montanez MD Pietrovirgil coy CLOT EXPIRATION DATE 2020-01-25 12:01:00 Amarilys Montanez MD TMP INTERPRETATION ANTIBODY 2020-01-25 12:01:00 Tomas Montanez MD SCREEN NEGATIVE COMPLETE BLOOD COUNT W/ 2020-01-21 12:29:00 Mervat Mercer MD nderson DIFFERENTIAL TOTAL PROTEIN 2020-01-21 12:29: Mervat Mercer MD ALBUMIN LEVEL 2020-01-21 12:29:00 Mervat Mercer MD CALCIUM LEVEL TOTAL 2020-01-21 12:29: [facility]cer [facility] PHOSPHORUS LEVEL 2020-01-21 12::00 Mervat Mercer MD GLUCOSE, RANDOM 2020-01-21 12:: Mervat Mercer MD BLOOD UREA NITROGEN 2020-01-21 12:29:00 [facility]ervat Mercer MD [facility] SERUM CREATININE 2020-01-21 12:29:00 Mervat Mercer MD URIC ACID 2020-01-21 12:: Mervat Mercer MD FRACTIONATED BILIRUBIN 2020-01-21 12:: Mervat Mercer MD derson ALKALINE PHOSPHATASE 2020-01-21 12:: Mervat Mercer MD Duc rson LACTATE DEHYDROGENASE 2020-01-21 12:29: Mervat Mercer MD And erson ALANINE AMINOTRANSFERASE 2020-01-21 12:29:00 Mervat Mercer MD ELECTROLYTE PANEL 2020-01-21 12:29:00 Mervat Mercer MD Anderso n MAGNESIUM LEVEL 2020-01-21 12:29:00 Mervat Mercer MD ABORH 2020-01-21 12:29:00 Mervat Mercer MD ANTIBODY SCREEN 2020-01-21 12:29:00 Mervat Mercer MD Results CBC 2020-01-21 12:29:00 Mervat Mercer MD MANUAL DIFFERENTIAL 2020-01-21 12:29:00 Mervat Mercer MD Pietro son SERUM CREATININE 2020-01-21 12:29:00 Mervat Mercer MD .GLOMERULAR FILTRATION RATE 2020-01-21 12:29:00 Mervat Mercer MD TMP INTERPRETATION ANTIBODY 2020-01-21 [...] Montanez MD nderson SERUM CREATININE 2020-01-18 11:49:00 Amarliys Montanez MD Duc rson URIC ACID 2020-01-18 11:49:00 Amarilys Montanez MD Pietro son FRACTIONATED BILIRUBIN 2020-01-18 11:49:00 Amarilys Montanez ALKALINE PHOSPHATASE 2020-01-18 11:49:00 Amarilys Montanez MD LACTATE DEHYDROGENASE 2020-01-18 11:49:00 Amarilys Montanez MD ALANINE AMINOTRANSFERASE 2020-01-18 11:49:00 Amarilys Montanez MD ELECTROLYTE PANEL 2020-01-18 11:49:00 Amarilys Montanez MD And erson MAGNESIUM LEVEL 2020-01-18 11:49:00 Amarilys Montanez MD Pietro son ASPARTATE AMINOTRANSFERASE 2020-01-18 11:49:00 Agustina Montanez MD COMPLETE BLOOD COUNT W/ 2020-01-18 11:49:00 Amarilys Montanez MD DIFFERENTIAL SERUM CREATININE 2020-01-18 11:49:00 Amarilys Montanez MD Duc rson .GLOMERULAR FILTRATION RATE 2020-01-18 11:49:00 Tomas Montanez MD Results CBC 2020-01-18 11:49:00 Amarilys Montanez MD [facility] MANUAL DIFFERENTIAL 2020-01-18 11:49:00 Amarilys Montanez MD nderson ABORH 2020-01-18 11:49:00 Amarilys Montanez MD [facility] ANTIBODY SCREEN 2020-01-18 11:49:00 Am[facility]ilys [facility] TMP INTERPRETATION ANTIBODY 2020-01-18 11:49:00 Tomas Montanez MD SCREEN NEGATIVE CLOT EXPIRATION DATE 2020-01-18 11:49:00 Amarilys Montanez MD TYPE AND SCREEN 2020-01-14 12:41:00 Amarilys Montanez MD [facility] COMPLETE BLOOD COUNT W/ 2020-01-14 12:41:00 Amarilys Montanez MD DIFFERENTIAL TOTAL PROTEIN 2020-01-14 12:41:00 Amarilys Montanez MD [facility] ALBUMIN LEVEL 2020-01-14 12:41:00 Amarilys Montanez MD [facility] CALCIUM LEVEL TOTAL 2020-01-14 12:41:00 Amarilys Montanez MD nderson PHOSPHORUS LEVEL 2020-01-14 12:41:00 Amarilys Montanez MD Duc rson GLUCOSE, RANDOM 2020-01-14 12:41:00 Amarilys Montanez MD [facility] BLOOD UREA NITROGEN 2020-01-14 12:41:00 Amarilys Montanez MD nderson SERUM CREATININE 2020-01-14 12:41:00 Amarilys Montanez MD Duc rson URIC ACID 2020-01-14 12:41:00 Amarilys Montanez MD Pietro son FRACTIONATED BILIRUBIN 2020-01-14 12:41:00 Amarilys Montanez ALKALINE PHOSPHATASE 2020-01-14 12:41:00 Amarilys Montanez MD LACTATE DEHYDROGENASE 2020-01-14 12:41:00 Amarilys Montanez MD ALANINE AMINOTRANSFERASE 2020-01-14 12:41:00 Amarilys Montanez MD ELECTROLYTE PANEL 2020-01-14 12:41:00 Amarilys Montanez MD And erson MAGNESIUM LEVEL 2020-01-14 12:41:00 Am[facility]ilys [facility] ABORH 2020-01-14 12:41:00 Amarilys Montanez MD [facility] ANTIBODY SCREEN 2020-01-14 12:41:00 Amarilys Montanez MD [facility] Results CBC 2020-01-14 12:41:00 Amarilys Montanez MD [facility] MANUAL DIFFERENTIAL 2020-01-14 12:41:00 Amarilys Montanez MD nderson SERUM CREATININE 2020-01-14 12:41:00 Amarilys Montanez MD Duc rson .GLOMERULAR FILTRATION RATE 2020-01-14 12:41:00 Tomas Montanez MD CLOT EXPIRATION DATE 2020-01-14 12:41:00 Amarilys Montanez MD TMP INTERPRETATION ANTIBODY 2020-01-14 12:41:00 Tomas Montanez MD SCREEN NEGATIVE TYPE AND SCREEN 2020-01-11 13:31:00 Amarilys [facility]z [facility] COMPLETE BLOOD COUNT W/ 2020-01-11 13:31:00 Amarilys Montanez MD DIFFERENTIAL TOTAL PROTEIN 2020-01-11 13:31:00 Amarilys Montanez MD [facility] ALBUMIN LEVEL 2020-01-11 13:31:00 Amarilys Montanez MD [facility] CALCIUM LEVEL TOTAL 2020-01-11 13:31:00 Amarilys Montanez MD nderson PHOSPHORUS LEVEL 2020-01-11 13:31:00 Amarilys Montanez MD Duc rson GLUCOSE, RANDOM 2020-01-11 13:31:00 Amarilys Montanez MD [facility] BLOOD UREA NITROGEN 2020-01-11 13:31:00 Amarilys Montanez [...] son ABORH 2020-01-11 13:31:00 Amarilys Montanez MD [facility] ANTIBODY SCREEN 2020-01-11 13:31:00 Amarilys Montanez MD Pietro son Results CBC 2020-01-11 13:31:00 Amarilys Montanez MD [facility] MANUAL DIFFERENTIAL 2020-01-11 13:31:00 Amarilys Montanez MD [...] PROTEIN 2020-01-07 12:44:00 Amarilys Montanez MD [facility] ALBUMIN LEVEL 2020-01-07 12:44:00 Amarilys Montanez MD Pietro son CALCIUM LEVEL TOTAL 2020-01-07 12:44:00 Amarilys Montanez MD nderson PHOSPHORUS LEVEL 2020-01-07 12:44:00 Amarilys Montanez MD Duc rson GLUCOSE, RANDOM 2020-01-07 12:44:00 Amarilys Montanez MD [facility] BLOOD UREA NITROGEN 2020-01-07 12:44:00 Amarilys Montanez MD nderson SERUM CREATININE 2020-01-07 12:44:00 Amarilys Montanez MD Duc rson URIC ACID 2020-01-07 12:44:00 Amarilys Montanez MD [facility] FRACTIONATED BILIRUBIN 2020-01-07 12:44:00 Amarilys Montanez ALKALINE PHOSPHATASE 2020-01-07 12:44:00 Amarilys Montanez MD LACTATE DEHYDROGENASE 2020-01-07 12:44:00 Amarilys Montanez MD ALANINE AMINOTRANSFERASE 2020-01-07 12:44:00 Amarilys Montanez MD ELECTROLYTE PANEL 2020-01-07 12:44:00 Amarilys Montanez MD And erson MAGNESIUM LEVEL 2020-01-07 12:44:00 Amarilys Montanez MD [facility] GLUCOSE LEVEL 2020-01-07 12:44:00 MD Feliberto Blackwell [...] TOTAL PROTEIN 2020-01-04 18:13:00 Amarilys Montanez MD Pietro son ALBUMIN LEVEL 2020-01-04 18:13:00 Amarilys Montanez MD Pietro son CALCIUM LEVEL TOTAL 2020-01-04 18:13:00 Amarilys Montanez MD nderson PHOSPHORUS LEVEL 2020-01-04 18:13:00 Amarilys Montanez MD Duc rson GLUCOSE, RANDOM 2020-01-04 18:13:00 Amarilys Montanez MD Pietro son BLOOD UREA NITROGEN 2020-01-04 18:13:00 Amarilys Montanez MD nderson SERUM CREATININE 2020-01-04 18:13:00 Amarilys Montanez MD Duc rson URIC ACID 2020-01-04 18:13:00 Amarilys Montanez MD Pietro son FRACTIONATED BILIRUBIN 2020-01-04 18:13:00 Amarilys Montanez ALKALINE PHOSPHATASE 2020-01-04 18:13:00 Amarilys Montanez MD LACTATE DEHYDROGENASE 2020-01-04 18:13:00 Amarilys Montanez MD ALANINE AMINOTRANSFERASE 2020-01-04 18:13:00 Amarilys Montanez MD ELECTROLYTE PANEL 2020-01-04 18:13:00 Amarilys Montanez MD And erson MAGNESIUM LEVEL 2020-01-04 18:13:00 Amarilys Montanez MD Pietro son ASPARTATE AMINOTRANSFERASE 2020-01-04 18:13:00 Agustina Montanez MD TYPE AND SCREEN 2020-01-04 18:13:00 Amarilys Montanez MD Pietro son COMPLETE BLOOD COUNT W/ 2020-01-04 18:13:00 Amarilys Montanez MD DIFFERENTIAL URINALYSIS WITH MICROSCOPIC 2020-01-04 18:13:00 Tomas Montanez MD IF INDICATED SERUM CREATININE 2020-01-04 18:13:00 Amarilys Montanez MD Duc rson .GLOMERULAR FILTRATION RATE 2020-01-04 18:13:00 Tomas Montanez MD Results CBC 2020-01-04 18:13:00 Amarilys Montanez MD Pietro son MANUAL DIFFERENTIAL 2020-01-04 18:13:00 Amarilys Montanez MD A nderson ABORH 2020-01-04 18:13:00 Amarilys Montanez MD Pietro son ANTIBODY SCREEN 2020-01-04 18:13:00 Amarilys Montanez MD Pietro son URINALYSIS MICROSCOPIC 2020-01-04 18:13:00 Amarilys Montanez CLOT EXPIRATION DATE 2020-01-04 18:13:00 Amarilys Montanez MD TMP INTERPRETATION ANTIBODY 2020-01-04 18:13:00 Tomas Montanez MD SCREEN NEGATIVE GAMMA GLUTAMYL TRANSFERASE 2020-01-04 18:13:00 Agustina Montanez MD ECHOCARDIOGRAM 2D COMPLETE 2019-12-29 12:50:31 Agustina Montanez MD URINALYSIS WITH MICROSCOPIC 2019-12-24 21:36:00 Tomas Montanez MD IF INDICATED URINALYSIS MICROSCOPIC 2019-12-24 21:36:00 Amarilys Montanez TOTAL PROTEIN 2019-12-24 17:43:00 Amarilys Montanze MD Pietro son ALBUMIN LEVEL 2019-12-24 17:43:00 Amarilys Montanez MD Pietro son CALCIUM LEVEL TOTAL 2019-12-24 17:43:00 Amarilys Montanez MD nderson PHOSPHORUS LEVEL 2019-12-24 17:43:00 Amarilys Montanez MD Duc rson GLUCOSE, RANDOM 2019-12-24 17:43:00 Amarilys Montanez MD Pietro son BLOOD UREA NITROGEN 2019-12-24 17:43:00 Amarilys Montanez MD nderson SERUM CREATININE 2019-12-24 17:43:00 Amarilys Montanez MD Duc rson URIC ACID 2019-12-24 17:43:00 Amarilys Montanez MD Pietro son FRACTIONATED BILIRUBIN 2019-12-24 17:43:00 Amarilys Montanez ALKALINE PHOSPHATASE 2019-12-24 17:43:00 Amarilys Montanez MD LACTATE DEHYDROGENASE 2019-12-24 17:43:00 Amarilys Montanez MD ALANINE AMINOTRANSFERASE 2019-12-24 17:43:00 Amarilys Montanez MD ELECTROLYTE PANEL 2019-12-24 17:43:00 Amarilys Montanez MD And erson MAGNESIUM LEVEL 2019-12-24 17:43:00 Amarilys Montanez MD Pietro son ASPARTATE AMINOTRANSFERASE 2019-12-24 17:43:00 Agustina Montanez MD TYPE AND SCREEN 2019-12-24 17:43:00 Amarilys Montanez MD Pietro son COMPLETE BLOOD COUNT W/ 2019-12-24 17:43:00 Amarilys Montanez MD DIFFERENTIAL SERUM CREATININE 2019-12-24 17:43:00 Amarilys Montanez MD Duc rson .GLOMERULAR FILTRATION RATE 2019-12-24 17:43:00 Tomas Montanez MD Results CBC 2019-12-24 17:43:00 Amarilys Montanez MD Pietro son MANUAL DIFFERENTIAL 2019-12-24 17:43:00 Amarilys Montanez MD nderson ABORH 2019-12-24 17:43:00 Amarilys Montanez MD Pietro son ANTIBODY SCREEN 2019-12-24 17:43:00 Amarilys Montanez MD Pietro son CLOT EXPIRATION DATE 2019-12-24 17:43:00 Amarilys Montanez MD TMP INTERPRETATION ANTIBODY 2019-12-24 17:43:00 Tomas Montanez MD SCREEN NEGATIVE HEMATOPATHOLOGY BONE MARROW 2019-12-16 02:49:00 MD Feliberto Blackwell DIFFERENTIAL June HP FC FLOW CYTOMETRY BLOOD 2019-12-14 20:22:00 Agustina Montanez MD COLLECTION HP MOLECULAR BLOOD 2019-12-14 20:22:00 Amarilys Montanez MD derson COLLECTION HP CYTOGENETICS BLOOD 2019-12-14 20:22:00 Amarilys Montanez MD COLLECTION HP CG CHROMOSOME ANALYSIS 2019-12-14 20:22:00 Leonela Montanez MD FINAL REPORT HP FLT3 ANALYSIS REPORT 2019-12-14 20:22:00 Agustina Montanez MD HP LEUKEMIA MUTATION 2019-12-14 20:22:00 Amarilys Montanez MD PANEL V1 HP FC MDS FINAL REPORT 2019-12-14 20:22:00 Amarilys Montanez HEMATOPATHOLOGY BONE MARROW 2019-12-14 20:22:00 MD Feliberto Blackwell INTERPRETATION June IN DIAGNOSTIC BONE MARROW 2019-12-14 19:00:00 Leonela Montanez [...] URIC ACID 2019-12-14 14:46:00 Amarilys [facility] FRACTIONATED BILIRUBIN 2019-12-14 14:46:00 Amarilys Montanez ALKALINE PHOSPHATASE 2019-12-14 14:46:00 Amarilys Montanez MD LACTATE DEHYDROGENASE 2019-12-14 14:46:00 Amarilys Montanez MD ALANINE AMINOTRANSFERASE 2019-12-14 14:46:00 Amarilys Montanez MD ELECTROLYTE PANEL 2019-12-14 14:46:00 Amarilys Montanez MD And erson MAGNESIUM LEVEL 2019-12-14 14:46:00 Amarilys [facility]z MD [facility] PERIPHERAL SMEAR FOR BONE 2019-12-14 14:46:00 Leonela Montanez MD MARROW ABORH 2019-12-14 14:46:00 Amarilys Montanez MD [facility] ANTIBODY SCREEN 2019-12-14 14:46:00 Amarilys Montanez MD [facility] Results CBC 2019-12-14 14:46:00 Amarilys Montanez MD [facility] MANUAL DIFFERENTIAL 2019-12-14 14:46:00 Amarilys Montanez MD nderson SERUM CREATININE 2019-12-14 14:46:00 Amarilsy Montanez MD Duc rson .GLOMERULAR FILTRATION RATE 2019-12-14 14:46:00 Tomas Montanez MD CLOT EXPIRATION DATE 2019-12-14 14:46:00 Amarilys Montanez MD TMP INTERPRETATION ANTIBODY 2019-12-14 14:46:00 Tomas Montanez MD SCREEN NEGATIVE TOTAL PROTEIN 2019-12-10 16:26:00 Amarilys Montanez MD [facility] ALBUMIN LEVEL 2019-12-10 16:26:00 Amarilys Montanez MD [facility] CALCIUM LEVEL TOTAL 2019-12-10 16:26:00 Amarilys [...] FERRITIN LVL 2019-12-10 16:26:00 Amarilys Montanez MD Pietro son D DIMER 2019-12-10 16:26:00 Amarilys Montanez MD Pietro son ERYTHROPOIETIN LEVEL 2019-12-10 16:26:00 Amarilys Montanez MD NT PRO BNP 2019-12-10 16:26:00 Amarilys Montanez MD [facility] TYPE AND SCREEN 2019-12-10 16:26:00 Amarilys Montanez MD [facility] HEPATITIS B CORE ANTIBODY 2019-12-10 16:26:00 Leonela [...] 2019-12-10 16:26:00 Amarilys Montanez MD And erson [id number] SERUM CREATININE 2019-12-10 16:26:00 Amarilys Montanez MD [...] RPR PATH INTERP 2019-12-10 16:26:00 Amarilys Montanez MDrson CONFIRM ABORH TYPE 2019-12-10 16:22:00 Amarilys Montanez MD derson HC COVID19 AUTOMATED PCR 2019-12-08 12:04:00 Rochelle Vallejo MD [facility] PATHOLOGY OUTSIDE 2019-11-06 00:00:00 Jeffrey Burt MD INTERPRETATION HEMATOPATHOLOGY BONE MARROW 2019-11-06 00:00:00 Jeffrey Burt MD DIFFERENTIAL VASCULAR DIAGRAM -SCAN 2019-04-20 17:30:08 Provider, Yari [facility] - Scanning [facility] Plan of Care Planned Activity Planned Date Details Comments Source Future Scheduled 2020-02-[address] [facility] - Test 00:00:00 (#1) [code = [facility] INFLUENZA VACCINE (#1)] Future Scheduled 2012-03-[address] [facility] Test 00:00:00 WELLNESS (YEAR [facility] or [facility] Center FIRST YEAR if no IPPE) [code = MEDICARE ANNUAL WELLNESS (YEAR 2 or FIRST YEAR if no IPPE)] Future Scheduled [address] [facility] 00:00:00 malignant neoplasm Medical C enter of colon (procedure) [code = 089991920] Encounters Start End Encounter Admission Attending Care Care Encounter Source Date/Time Date/Time Type Type Clinicians Facility Department ID 2020-02-15 Outpatient SYSTEM, CARLOS GONZALEZ [id number] 11:42:17 FABRIZIO apple 2020-01-04 Outpatient CARLOS GONZALEZ [id number] 15:51:33 Chavez apple 2019-12-22 Outpatient MELBA ZAMORA MDA MDA [id number] 11:07:13 RAFAEL apple 2019-11-26 Outpatient SYSTEM, CARLOS GONZALEZ [id number] 12:31:31 PROVIDER Haroldo apple 2020-04-14 2020-04-14 Outpatient EL VALENTE GONZALEZ MDA [id number] 11:50:34 13:50:14 Haroldo PRUITT 2020-04-14 2020-04-14 Outpatient MELBA BOLAÑOSESECARLOS MDA [id number] 11:49:38 11:49:38 MERVAT apple 2020-03-31 2020-03-31 Outpatient MELBA MONTANEZ MDA MDA [id number] 07:14:23 23:59:00 AMARILYS whalen n 2020-03-31 2020-03-31 Outpatient EL MAY MDA MDA [id number] 07:36:38 07:36:38 Haroldo PRUITT JUNE n 2020-03-03 2020-03-03 Outpatient MELBA MONTANEZ, MDA MDA [id number] 10:30:00 23:59:00 AMARILYS [place] so zechariah 2020-03-03 2020-03-03 Outpatient EL MAY MDA MDA [id number] 07:25:25 11:54:16 Haroldo PRUITT JUNE n 2020-03-03 2020-03-03 Outpatient MELBA MONTANEZ, MDA MDA [id number] 07:11:53 10:29:00 AMARILYS aplpe 2020-03-03 2020-03-03 Outpatient EL MAY MDA MDA [id number] 07:33:17 07:33:17 Haroldo PRUITT JUNE n 2020-02-15 2020-02-15 Outpatient EL MAY MDA MDA [id number] 00:00:00 00:00:00 Haroldo PRUITT JUNE n 2020-02-15 2020-02-15 Outpatient EL MAY MDA MDA [id number] 00:00:00 00:00:00 Haroldo PRUITT JUNE n 2020-02-11 2020-02-11 Outpatient EL MAY MDA MDA [id number] 00:00:00 00:00:00 Haroldo PRUITT JUNE n 2020-02-11 2020-02-11 Outpatient EL MAY MDA MDA [id number] 00:00:00 00:00:00 Haroldo PRUITT JUNE n 2020-02-04 2020-02-04 Outpatient EL MAY MDA MDA [id number] 07:30:00 23:59:00 Haroldo PRUITT JUNE n 2020-02-04 2020-02-04 Outpatient EL MAY MDA MDA [id number] 13:01:22 13:01:22 Haroldo PRUITT JUNE n 2020-02-04 2020-02-04 Outpatient EL MAY MDA MDA [id number] MD 09:47:29 11:23:48 Haroldo PRUITT JUNE n 2020-02-04 2020-02-04 Outpatient EL MAY MDA MDA [id number] 00:00:00 00:00:00 Haroldo PRUITT JUNE n 2020-02-01 2020-02-01 Outpatient EL SALVATORA, MDA MDA [id number] MD 06:44:58 23:59:00 AMARILYS [place] so n 2020-02-01 2020-02-01 Outpatient EL SALVATORA, MDA MDA [id number] MD 06:44:46 06:44:46 AMARILYS [place] so n 2020-02-01 2020-02-01 Outpatient EL MAY MDA MDA [id number] 00:00:00 00:00:00 Haroldo PRUITT 2020-02-01 2020-02-01 Outpatient EL MAY MDA MDA [id number] 00:00:00 00:00:00 Haroldo PRUITT 2020-01-29 2020-01-29 Outpatient EL MAY MDA MDA [id number] 00:00:00 00:00:00 Haroldo PRUITT JUNE n 2020-01-28 2020-01-28 Outpatient EL MAY MDA MDA [id number] 00:00:00 00:00:00 Haroldo PRUITT JUNE n 2020-01-28 2020-01-28 Outpatient EL MAY MDA MDA [id number] 00:00:00 00:00:00 Haroldo PRUITT JUNE n 2020-01-28 2020-01-28 Outpatient EL MAY MDA MDA [id number] 00:00:00 00:00:00 Haroldo PRUITT JUNE n 2020-01-27 2020-01-27 Outpatient EL SALVATORA, MDA MDA [id number] MD 07:21:52 23:59:00 AMARILYS [place] so n 2020-01-27 2020-01-27 Outpatient EL SALVATORA, MDA MDA [id number] 07:38:46 07:38:46 AMARILYS [place] so n 2020-01-27 2020-01-27 Outpatient EL MAY MDA MDA [id number] 07:21:31 07:21:31 Haroldo PRUITT JUNE n 2020-01-26 2020-01-26 Outpatient EL MAY MDA MDA [id number] 06:51:19 23:59:00 Haroldo PRUITT JUNE n 2020-01-25 2020-01-25 [facility] MDA [id number] 06:39:14 23:59:00 AMARILYS [place] so n 2020-01-25 2020-01-25 Outpatient [facility], MDA MDA [id number] 06:39:01 06:39:01 AMARILYS [place] so n 2020-01-25 2020-01-25 Outpatient EL MAY MDA MDA [id number] 00:00:00 00:00:00 Haroldo PRUITT JUNE n 2020-01-25 2020-01-25 [facility] [id number] 00:00:00 00:00:00 Haroldo PRUITT JUNE n 2020-01-21 2020-01-21 [facility] [id number] MD 07:24:30 23:59:00 MERVAT wylie n 2020-01-21 2020-01-21 [facility] MDA [id number] MD 07:43:33 07:43:33 MERVAT apple 2020-01-21 2020-01-21 [facility] [id number] MD 07:24:47 07:24:47 Haroldo PRUITT JUNE n 2020-01-21 2020-01-21 [facility] [id number] 00:00:00 00:00:00 Haroldo PRUITT JUNE n 2020-01-21 2020-01-21 Outpatient EL MAY MDA MDA [id number] 00:00:00 00:00:00 Haroldo PRUITT JUNE n 2020-01-18 2020-01-18 Outpatient [facility], MDA MDA [id number] 06:44:06 23:59:00 AMARILYS [place] so n 2020-01-18 2020-01-18 Outpatient [facility], MDA MDA [id number] 06:43:55 06:43:55 AMARILYS [place] so n 2020-01-18 2020-01-18 Outpatient EL MAY MDA MDA [id number] 00:00:00 00:00:00 Haroldo PRUITT JUNE n 2020-01-18 2020-01-18 Outpatient EL MAY MDA MDA [id number] 00:00:00 00:00:00 Haroldo PRUITT JUNE n 2020-01-14 2020-01-14 Outpatient EL MAY MDA MDA [id number] 07:12:49 23:59:00 Haroldo PRUITT JUNE n 2020-01-14 2020-01-14 Outpatient EL MAY MDA MDA [id number] 08:48:08 08:48:08 Haroldo PRUITT JUNE n 2020-01-14 2020-01-14 Outpatient EL MAY MDA MDA [id number] 07:42:35 07:42:35 Haroldo PRUITT JUNE n 2020-01-14 2020-01-14 Outpatient EL MAY MDA MDA [id number] 07:12:35 07:12:35 Haroldo PRUITT JUNE n 2020-01-13 2020-01-13 Outpatient EL MAY MDA MDA [id number] 07:05:08 23:59:00 Haroldo PRUITT JUNE n 2020-01-13 2020-01-13 [facility] MDA [id number] 07:32:19 07:32:19 Haroldo PRUITT JUNE n 2020-01-11 2020-01-11 Outpatient [facility], MDA MDA [id number] 10:02:52 13:20:01 GREG wylie n 2020-01-11 2020-01-11 Outpatient [facility], MDA MDA [id number] 08:57:34 09:48:53 AMARILYS apple 2020-01-11 2020-01-11 [facility] [id number] 08:31:21 08:49:52 AMARILYS apple 2020-01-11 2020-01-11 Outpatient EL MAY MDA MDA [id number] 00:00:00 00:00:00 Haroldo PRUITT JUNE n 2020-01-11 2020-01-11 Out[place] [facility] [place] MDA [id number] 00:00:00 00:00:00 Haroldo PRUITT JUNE n 2020-01-08 2020-01-08 Out[place] [facility] [place] MDA MDA [id number] 07:16:35 07:16:35 Haroldo PRUITT JUNE n 2020-01-07 2020-01-07 Outpatient [facility], MDA MDA [id number] 07:27:22 23:59:00 AMARILYS [place] so zechariah 2020-01-07 2020-01-07 [place] [facility] [place] MDA [id number] 08:53:53 08:53:53 Haroldo PRUITT JUNE n 2020-01-07 2020-01-07 Outpatient [facility], MDA MDA [id number] 08:05:30 08:05:30 AMARILYS [place] so n 2020-01-07 2020-01-07 Outpatient [facility] [place] MDA MDA [id number] 07:26:26 07:26:26 Haroldo RPUITT JUNE n 2020-01-07 2020-01-07 Outpatient [facility] [place] MDA MDA [id number] 07:15:00 07:26:00 Haroldo PRUITT JUNE n 2020-01-07 2020-01-07 Outpatient [facility] [place] MDA MDA [id number] 06:52:32 07:14:00 Haroldo PRUITT JUNE n 2020-01-05 2020-01-05 Outpatient [facility] [place] MDA MDA [id number] 07:37:32 23:59:00 Haroldo PRUITT JUNE n 2020-01-05 2020-01-05 [facility] [id number] 07:37:48 07:37:48 Haroldo PRUITT JUNE n 2020-01-05 2020-01-05 [facility] [id number] 07:01:56 07:36:00 Haroldo PRUITT JUNE n 2020-01-04 2020-01-04 Outpatient [facility], MDA MDA [id number] 12:55:40 23:59:00 AMARILYS [place] so zechariah 2020-01-04 2020-01-04 Outpatient EL MAY MDA MDA [id number] 13:20:42 13:20:42 Haroldo PRUITT JUNE n 2019-12-29 2019-12-29 Outpatient EL [facility], MDA MDA [id number] 06:48:03 23:59:00 AMARILYS Alvareser so n 2019-12-29 2019-12-29 Outpatient EL MAY MDA MDA [id number] 07:43:41 07:43:41 Haroldo PRUITT JUNE n 2019-12-29 2019-12-29 Outpatient EL [facility], MDA MDA [id number] 00:00:00 00:00:00 AMARILYS [place] so n 2019-12-29 2019-12-29 Outpatient EL MAY MDA MDA [id number] 00:00:00 00:00:00 Haroldo PRUITT JUNE n 2019-12-24 2019-12-24 Outpatient EL [facility], MDA MDA [id number] 16:25:48 23:59:00 AMARILYS Alvareser so n 2019-12-24 2019-12-24 Outpatient EL MAY MDA MDA [id number] 12:50:38 16:58:36 Haroldo PRUITT JUNE n 2019-12-24 2019-12-24 Outpatient EL [facility], MDA MDA [id number] 12:27:52 16:24:00 AMARILYS Alvareser so n 2019-12-23 2019-12-23 Outpatient [facility] MDA MDA [id number] 07:26:00 23:59:00 Haroldo ANAND SERINA n 2019-12-14 2019-12-14 Outpatient EL [facility], MDA MDA [id number] 14:00:00 23:59:00 AMARILYS [place] so n 2019-12-14 2019-12-14 Outpatient [facility], MDA MDA [id number] MD 11:46:16 13:59:00 EDGAR mayen n 2019-12-14 2019-12-14 Outpatient EL MAY MDA MDA [id number] 11:51:42 11:51:42 Haroldo PRUITT JUNE n 2019-12-14 2019-12-14 Outpatient MELBA PENG, MDA MDA [id number] 10:03:00 11:45:00 [place] apple 2019-12-14 2019-12-14 Outpatient MELBA MONTANEZ, MDA MDA [id number] 09:25:53 10:02:00 AMARILYS apple 2019-12-14 2019-12-14 Outpatient MELBA MONTANEZ MDA MDA [id number] 09:26:08 09:26:08 AMARILYS apple 2019-12-10 2019-12-10 Outpatient MELBA MONTANEZ, MDA MDA [id number] 11:12:14 23:59:00 AMARILYS apple 2019-12-10 2019-12-10 Outpatient MAY MDA MDA [id number] MD 09:31:49 15:36:51 Haroldo PRUITT 2019-12-10 2019-12-10 Outpatient MAY MDA MDA [id number] 09:31:21 09:31:21 Haroldo PRUITT 2019-12-10 2019-12-10 Outpatient MDA MDA [id number] 09:11:05 09:11:05 Haroldo apple 2019-12-10 2019-12-10 Outpatient MELBA MONTANEZ, MDA MDA [id number] 00:00:00 00:00:00 AMARILYS apple 2019-12-08 2019-12-08 Outpatient VALENTE MDA MDA [id number] 06:55:55 06:55:55 Haroldo PRUITT 2019-12-08 2019-12-08 Outpatient MAY MDA MDA [id number] 00:00:00 00:00:00 Haroldo PRUITT 2017-04-24 2017-04-24 [id number] . 18:23:00 18:23:00 [facility] Results Test Description Test Time Test Comments Results Result Comments Source TMP Interpretation Antibody Screen Negative 2020-04-15 02:02 :55 Test Item Value Reference Range Interpretation Comme nts TMP Auto At the present MADINA Neg ABSC time, patient NAVDEEP PEPPER MD - [id number] by: MADINA PEPPER MD - [place] no [id number] d Date/Time: 04.14.2020 20:02 PM [employer] (test evidence of RBC Transcribed Date/Time: 04.14.2020 20:02 PM code = alloantibodies. CSTElectroni galileo Signed By: MD Frank SNELL [id number] on [id number]) 04.14.2020 20:0 2 PM MD DaoTMP Interpretation [id number] 02:02:54 Test Item Value Reference Range Interpretation Comments TMP XM Interp RBC units (test code = crossmatched for 7566) transfusion appear NAHUM PEPPER MD acceptable. - [id number] by: MD Frank SNELL [id number] Date/Time: 04.03 20:02 PM [employer] Transcribed Ian e/Time: 04.14.2020 20:0 2 PM CSTElectronical ly Signed By: MD Frank PELAYO [id number] on 04.14.2020 20:0 2 PM MD DaoEvleyhbrAuyyxehpisqi1302-04-99 22:34:31 Test Item Value Reference Range Interpretation Comments Total Cells (test code 114 = 7642) Neutrophil % (test code 47.0 % 42-66 The Neutrophil count = 6491) includes Bands. Lymphocyte % (test code 32.0 % 24-44 = 6194) Monocyte % (test code = 17.0 % 2-7 H 6422) Eosinophil % (test code 3.0 % 1-4 = 5520) Metamyelocyte % (test 1.0 % <=0.0 H The Me tamyelocyte code = 6399) count includes Myelocytes. NRBC (test code = 6472) 1.0 <=0.0 H Neutrophil Abs (test 0.85 K/uL 1.7-7.3 L code = 6492) Lymphocyte Abs (test 0.58 K/uL 1-4.8 L code = 6195) Monocyte Abs (test code 0.31 K/uL 0.08-0.7 = 6423) Eosinophil Abs (test 0.05 K/uL 0.04-0.4 code = 5521) RBC Morph (test code = Present Normal A 6942) PLT Morph (test code = Normal Normal 17039-6) Anisocytosis (test code Present Not Present A = 4811) Poik (test code = 6840) Present Not Present A Tear Drop (test code = Present Not Present A 7602) Macrocyte (test code = Present Not Present A 6358) Lab Interpretation Abnormal (test code = 67704-6) MD Dao.COJ7723-85-04 22:34:28 Test Item Value Reference Range Interpretation Comments WBC (test code = 1.8 K/uL 4-11 L 6690-2) RBC (test code = 789-8) 2.10 4.50- 6.00 M/uL L Hgb (test code = 718-7) 7.2 14.0- 18.0 gm/dL L Hct (test code = 21.8 % 40-54 L 4544-3) MPV (test code = 787-2) 11.2 fL 4-10.4 H MCH (test code = 785-6) 34.3 pg 27-31 H MCHC (test code = 33.0 31.0- 36.0 gm/dL 786-4) RDW-SD (test code = 64.6 fL 35.1-46.3 H 40406-8) RDW-CV (test code = 17.8 % 12-15.5 H 788-0) Platelet count (test 27 K/uL 140-440 L code = 777-3) INRBC [...] differential. Lab Interpretation Abnormal (test code = 51249-5) MD DaoPrepare RBC:atc main, 1 Myjev4293-80-41 20:57:15 Test Item Value Reference Range Interpretation Comments PRBC Product 1 Red Blood Cells Ready (test code Available - Order = 82980-0) Form 03 when re caitlyn for product iss ue. GUILLAUME (test code = Does the Patient GUILLAUME) have a Current Signed Informed Consent for Blood Component Transfusion?->Yes MD DaoOorsuvgaSZRSs5369-78-51 20:35:01 Test Item Value Reference Range Interpretation Comments ABORh. (test code = 882-1) A POS MD DaoClot Expiration Npzr3323-29-04 20:34:30 Test Item Value Reference Range Interpretation Comments T & S Expiration (test code = 04/17/2020 5318) MD DaoAntibody Qdbtlq4845-86-78 20:32:05 Test Item Value Reference Range Interpretation Comments ABSC. (test code = 890-4) Negative ABSC MD DaoUrinalysis with Txutasdoplk2920-05-04 19:57:33 Test Item Value Reference Range Interpretation Comments UA WBC (test code = 1 0- 2 /HPF 7904) UA RBC (test code = 1 0- 2 /HPF 7891) UA Mucous (test NOT SEEN TRACE /HPF code = 7887) UA Bacteria (test NOT SEEN NOT SEEN /HPF code = 7870) UA Squam Epi (test NOT SEEN OCC /HPF code = 7896) GUILLAUME (test code = Some reporting parameters GUILLAUME) within the Urinalysis test have changed due to the implementation of new instrumentation in the [facility], allowing greater sensitivity of measurement. Urinalysis results reported by the [facility] using existing instrumentation, as well as Urinalysis testing performed manually or by backup methodology at the [facility] will remain relatively unchanged. New reporting parameters and units will now be reported for all campuses. MD DaoUrinalysis w/Microscopic if Lbiltcexm9804-78-19 19:55:14 Test Item Value Reference Range Interpretation Comments UA Color (test code = 7877) Yellow Yellow UA Appear (test code = 7868) Clear Clear UA Glucose (test code = 7881) NEG NEG mg/dL UA Bili (test code = 7871) NEG NEG UA Ketones (test code = 7884) NEG NEG mg/dL UA Spec Grav (test code = 7894) 1.012 1.002-1.035 UA Blood (test code = 7872) Small NEG A UA pH (test code = 7909) 6.0 4.5-8.0 UA Protein (test code = 7890) NEG NEG mg/dL UA Urobilinogen (test code = 7903) NEG NEG UA Nitrite (test code = 7888) NEG NEG UA Leuk Est (test code = 7886) NEG NEG Lab Interpretation (test code = Abnormal 43614-3) MD DaoFractionated Xkobimidc7305-54-08 19:02:32 Test Item Value Reference Range Interpretation Comments Bili Total (test 0.3 mg/dL <=1.2 Indocyanine Green (ICG) code = 5096) may cause false ly elevated biliru bin results. Total and direct bilirubin must not be measured from s amples containing indo cyanine green. False el evation of total bilirubin can be seen in patient s with IgG concentrations above 28 g/L. Bili Direct (test <0.2 <=0.3 mg/dL Indocyanin e Green (ICG) code = 5094) may cause false ly elevated biliru bin results. Total and direct bilirubin must not be measured from s amples containing indo cyanine green. Bili Indirect (test See Note 0-0.9 Unable t o calculate code = 5095) Indirect Biliru bin result due to some par ameters are outside rep ortable range MD DaoGlomerular Filtration Hufv6999-32-52 19:02:30 Test Item Value Reference Range Interpretation Comments eGFR-AA (test 74 >=60 mL/min/1.73 sq. Normal eGFR: >= 60 code = 8062) m mL/min/1.73 m2N ote: The eGFR is calcula bre using the CKD-EPI equ ation. The eGFR declines w ith age. eGFR <60 mL/min /1.73 m2 is considered as " decreased". This equation s hould only be used for pat ients 18 and older. Acco rding to the National Ki dney Foundation's Ki dney Disease Outcome Quality Initiative (KDO QI) classification and 2012 Kidney Disease Improving Global Outcomes (KDIGO) Clinical Practi ce Guideline, the stage of CKD should be c ategorized based on estima bre GFR. Stage Descripti on GFR mL/min/1.73 m21 Normal or high GFR >=902 Mildly de creased GFR 60-893a Mildly to moder ately decreased GFR 45-593b Moderately to s everely decreased GFR 30-444 Severely decrea sed GFR 15-295 Kidney failure <15 eGFR-OWEN (test 64 >=60 mL/min/1.73 sq. Cony l eGFR: >= 60 code = 8063) m mL/min/1.73 m2N ote: The eGFR is calcula bre using the CKD-EPI equ ation. The eGFR declines w ith age. eGFR <60 mL/min /1.73 m2 is considered as " decreased". This equation s hould only be used for pat ients 18 and older. Acco rding to the National dney Foundation's dney Disease Outcome Quality Initiative (KDO QI) classification and 2012 Kidney Disease Improving Global Outcomes (KDIGO) Clinical Practi ce Guideline, the stage of CKD should be c ategorized based on estima bre GFR. Stage Descripti on GFR mL/min/1.73 m21 Normal or high GFR >=902 Mildly de creased GFR 60-893a Mildly to moder ately decreased GFR 45-593b Moderately to s everely decreased GFR 30-444 Severely decrea sed GFR 15-295 Kidney failure <15 MD DaoWsvzyjbdCSU3855-55-46 19:02:29 Test Item Value Reference Range Interpretation Comments LDH (test code = 171 U/L 135-225 Results gre ater than 1651 6111) U/L may not be reliable due to matrix effec t with extended diluti on as it exceeds the man ufacturer s recommended l imit. Caution should be exercised when interpreti ng such values and done in conjunction wit h clinical context. MD DaoAlkaline Rklhwztskzg5355-81-02 19:02:28 Test Item Value Reference Range Interpretation Comments Alk Phos (test code = 4768) 86 U/L 40-129 MD DaoAlbumin Alzzx1886-23-12 19:02:27 Test Item Value Reference Range Interpretation Comments Albumin Lvl (test code = 4763) 4.1 3.5- 5.2 gm/dL MD DaoAspartate Wdmqfxvecjvlstli4120-79-80 19:02:25 Test Item Value Reference Range Interpretation Comments AST (test code = 4731) 19 U/L <=40 MD DaoGlucose, Rivcmq3413-84-31 19:02:24 Test Item Value Reference Range Interpretation Comments Glucose Random (test 121 mg/dL 70-199 Effecti ve 12/28/15, the code = 9360) glucose referen ce intervals have been updated based o n [place] [employer] chuck delines (Standards of M edical Care in Diabete s 2016. Diabetes Care 2 016; 39: S13-S22).Fastin g blood glucose:Normal: 70 99 mg/dLImpaire d fasting glucose (increa sed risk for diabetes or pre-diabetes): 100 125 mg/dLDiabet es mellitus: >/=1 26 mg/dL Random blood glucose:Normal: 70 199 mg/dLNote: Random glucose >100 mg /dL is associated with increased risk for diabetes MD DaoElectrolyte Omesu1449-13-34 19:02:23 Test Item Value Reference Range Interpretation Comments Sodium Lvl (test code = 7355) 137 136- 145 mEq/L Potassium Lvl (test code = 6854) 4.4 3.5- 5.1 mEq/L Chloride (test code = 5279) 104 98- 107 mEq/L CO2 (test code = 5227) 24 22- 29 mEq/L Anion Gap (test code = 9325) 9 4- 14 mEq/L MD DaoUric Olbu8293-29-42 19:02:22 Test Item Value Reference Range Interpretation Comments Uric Acid (test code = 7955) 4.8 mg/dL 3.4-7 MD Dao.Serum Fftlynyfpm8854-85-86 19:02:21 Test Item Value Reference Range Interpretation Comments Creatinine (test code = 5399) 1.13 mg/dL 0.67-1.17 MD DaoTotal Uxqtfvm8974-92-62 19:02:20 Test Item Value Reference Range Interpretation Comments Total Protein (test code = 7649) 6.6 g/dL 6.4-8.3 MD DaoPhosphorus Zmmau1512-12-76 19:02:19 Test Item Value Reference Range Interpretation Comments Phosphorus (test code = 6817) 3.4 mg/dL 2.5-4.5 MD DaoSckotxsbNAX1847-02-61 19:02:18 Test Item Value Reference Range Interpretation Comments GGT (test code = 5647) 22 U/L 8-61 MD DaoCalcium Wlrlz6521-46-93 19:02:16 Test Item Value Reference Range Interpretation Comments Calcium Lvl (test code = 5258) 8.9 mg/dL 8.4-10.2 [place] Ajndaihwzcdwnpsq5047-07-98 19:02:15 Test Item Value Reference Range Interpretation Comments ALT (test code = 4705) 9 U/L <=41 [facility] Gtojl0926[facility]16[facility]72 19:02:14 Test Item Value Reference Range Interpretation Comments Magnesium (test code = 6359) 1.9 mg/dL 1.6-2.6 [facility]vWMM0497-37-66 19:02:13 Test Item Value Reference Range Interpretation Comments BUN (test code = 5055) 13 mg/dL 6-23 [facility] Syqvyzsgkgkk1922-57-57 15:44:00 Test Item Value Reference Range Interpretation Comments Method (test code = Smear 9909) Adequacy (test code = Satisfactory for 9910) evaluation Total cells counted 500 (test code = 9867) BM Blast % (test code = 3.0 % 0-5 9868) BM Progranulocyte % 2.0 % 2-8 (test code = 9869) BM Myelocyte % (test 10.0 % 5-20 code = 9870) BM Metamyelocyte % 10.6 % 13-32 L (test code = 9871) BM Granulocyte % (test 35.0 % 7-30 H code = 9872) BM Eosinophil % (test 8.0 % 0-4 H code = 9873) BM Basophil % (test 0.4 % 0-1 code = 9874) BM Lymphocyte % (test 8.4 % 3-17 code = 9875) BM Plasma Cell % (test 1.6 % 0-2 code = 9876) BM Monocyte % (test 6.0 % 0-5 H code = 9877) BM Pronormoblast % 1.0 % 1-8 (test code = 9879) BM Normoblast % (test 14.0 % 7-32 code = 9880) BM M:E Ratio (test code 5.0 3.0-4.0 H = 9888) GUILLAUME (test code = GUILLAUME) DISCLAIMER Preliminary BM Diff may have been completed by a medical concierge and is subject to change. Any pathologist updates will be included on interpretation and appear in the final result. Please use caution in evaluating your patient based on preliminary results. Lab Interpretation Abnormal (test code = 79727-0) MD DaoHematopathology Bone Marrow Mzfbhhnfhhldzc7615-13-55 15:43:00 Test Item Value Reference Range Interpretation Comments Diagnosis (test code = 34) u2dmzMIyCOMxcDP8PGT hYUEtm6vvg9HulILvvU YuZGwniEJtxgElno14s FQ6vH55MM1hSAHtMmA5 OWUoibF1Iii7UXMhRXG qbTNrO296t0jkn5tzuw DsyOM9hAzaOGRnMZpaD VxyaTFcbGluMVxwbGFp blxmczIwIEJvbmUgbWF wfj39TLAvj2J0KQQls4 SthVyjHIJuD6Wcv6JcV HTdx9ZjcIngX5walBVo AQL2cE0wNMMaf2ZagwR 0ZSBzbWVhcnMsIGFuZC B3c3UiyGWdopSsJJQuc EhokxorvYGbBO4yrMSu CB6iuxv+TK4dtbf+XH5 cflx+QS9ntnKCFRGJQZ XBCE0VLICNRv0GOMNpR PcKHI6DS03LH7zJVXEm MLFRZ9BJQJRdKYElZIE KVJNFGoCTItCVM6GXFu FURSBTTUVBUlMgKHNlZ FHyx46dTL42AQ8wyTVx fQ== Comment (test code = 9835) v5swsRKwYBYyiFC0SDT dZJJnq4eli2AudOUkyC VsAYqmmURabfSxlr26e NH9iC75ID1pEFVcJdE1 CBBkpsM3Tsi9EFClGYQ wiAEtX753m0fyq0bznr VfrYF0YBHeZID3ZQpvn jAnvjQ7QOnysFOvGmS2 Z80unRQhVYnbfNZnjdu qyeFaDVBxP4AlYVLhIW BlciBjbGluaWNhbCBub 3RlcywgdGhlIHBhdGll vxKngDIoAWQ9SgV5iyR eCTlkOGcczQeaR66QJE wgYmVpbmcgdHJlYXRlZ HG6hDZgOVI8UEGqpIcm iR5hLZLnRTZvVKMdjpQ yaWRpbmUuXHBhclxwYX UzhFkrZEKyMQiagX0pZ FOlU5OlIUNdNJLgucWh kYA1jU5dWHmdiLxxXT1 gcVppYHG9LKK1sRZ1ZE Uij7DqnGHnwPEnblDzu 49jZA7zIWErCp1wNPTz dFXjJHOfFQJ2XQs7TXY wt44qNYTrgk6= Microscopic Description r5chiLIhCGLipDQ3APT (test code = 9865) sAVFod7eru3ZkqTDeiG WvTHiedJGydmGcng36i VI0cU31VL9rYOCzLiQ6 VPRpiyX0Feq6EIZkMVN pySOmR138d4uhz7thbq UubCL5HTZaLIVqG7AiQ F2wTIJgrQUlYYS8DYBq ZDIyOVxncmVlbjIyOVx yaPYxJpS1D99hsGZoRK xsaTFccmkxXGxpbjFcc GtjkQ7mDxibfhZfCYOt UQbwvNFyiJQ7IbMLTUG TCCxCRxAZYWXOV90TUS x+A53MCVEmsQXpFBStE GXzUBxxfYMmyWN6XMr+ XHBhciBSQkNzOiBcflx +KR4itmv+IY7wizf+XH 5cflx+LB0fSMMiyk4mm KFwCixlid7luH7pfRHn uDhmLOEfQF2tSGpso3o 0aCBtaWxkIGFuaXNvcG 0my7rjl8B4hN9ztDHhL HBhciBXQkNzOiBcflx+ OR5mumu+UE1esii+XH5 cflx+MGGhBHV0PEPhFO gxjDphPZBer8r3mXWqa N3bl0B4vR0eqDHhDL5o PYKotjR5iDZ0iE9vLZK oKVL5mzVwnkVdk8Ikoc 8jAGBfzaAShRN2QCpod HM6IFx+DJ8btsy+XH5c flx+CZ7kJPheu76cf3B 5vJ6mVR0yLD7alKKbOB 4neBHdNGOfY2CgCOBrE 2JwYXQyIEJPTkUgTUFS Zh4WRDOFJ1SunJOyHHM qUGLvIQydhUYuuZI2CI x+TFYmvpKNuOItjGZ7D lx+GX5adhq+JX5vicr+ VP7tihf+YP5ntck+XH5 cflx+CO2lfvk+XH5cfl x+NW3fYZZglJGspODyM HBhciBDZWxsdWxhcml0 eTpcflx+WJ4qexo+XH5 cflx+YZ4fuey+XH5cfl x+EO4qxbe+WI7gryM0A OKsVT2syoa+AW7pqgYp flxwYXIgTWVnYWthcnl eP5s9RNM4XLs+XH5cfl x+QG0haru+RP6kDDRrb YRvqRE4SGH2m9OaJOM4 sBErRXjzYXUlEP9exEi 1ocU4SGwewfy+XH5cfl x+JS3izrq+DT5clbq+X H5cflx+KW3oolu+XH5c flx+EV8mtoUCp3IuwOO zsjKfBvwhZI4odKQtZD 0jxXWmZKIxZ1LaIRIhA 2JwYXQyIEJPTkUgTUFS Fb3KRYXLICAOAz4BN1F JKEYKTgGTY6cpPWBoVa XrM0OyBXDgU6FqCZGrQ D4uvNFrKLP0PHopzNi9 IFx+LN6bbkb+LN3jajf +JF9uhua+BU2krww+XH 5cflx+FU3sqyt+XH5cf cDdnbJKACGreVZ4HU7c bVIzDIeaOL19zQ5ilCY lczpcflx+JP5qivl+XH 5cflx+KR6bnmw+XH5cf lx+IFNlcXVlbnRpYWwg uSI3gHHxqGvzdjyzVIt gwOkbm1WoJx5vhWDtJI ZnkKHdgb3ctGIwastap lx+VR0jteu+IF8czyg+ MG9qbzt+OO5pzyr+XH4 qY1NrvXDstJohuFVoCO L3pbT0eC6xDvNusFIin GFzdGljLlxwYXIgTWVn MYjmfzatK7c8MDV0YK5 cflx+PK0qlxm+XH5cfl x+CBTeF8LiGSIrKI0ln QDhRZd2oUDaf6C5xVMj Olx+JM6sgnq+YQ0oxke +BC1lpzd+MK7tobk+XH 5tKz60QDvyG6FdWMRnR U9fvFXpPWItEAUbVCOv FAkleuoxRS1mxyg+XH5 cflx+UL4bzwj+XH5cfl x+KE6umfJKm7ZmlZ9iy cEmj2KwUxefCWTuPjwf o4BiQmWtafg+ME5fcov +FG1uvos+ZI0wjyb+XH 5cflx+OC8xqgf+XH5cf lx+NL7lnhl+QP9aHf90 YRvpC3DvVRVvMS7iqOH yfQ== Gross Description (test x1laiEEhPSSkw7eyUAL code = [id number]) pAuSvCXPVl6idm404gA CyDUglOzXrIxZ3yWKiN TEvxJZhk0W1JAfrqCFm EuNCpozufQs2i9bvN0o cor5hVD7qGkUaHGFqPB QwXGZwcnEyIFRpbWVzI Q5pgsRPm59lrhd9g8xa WSgpeJ0rCZQcQBZtkMN ll6G9ZRrtlXMuBZJAt1 XokXMmMY1vqvj9v9jjP Nofd2qoo0KtEnFzIOXh ZXQwXGZwcnEyIEFyaWF rTN5jcoSyzmj8i6nfVK FkPu7hXZUyglucX3wta dNlaVRrXaQpuCXoE048 iuubzxj0t3byVYKkGt7 egPhoV4kqzyUxhOCpBs BycTIgVHJveSBNaWNyb pUvcUI5fUlxKhLzEBGq s19wrbwfT5nzguDtgJX sYcRooSUiK3pyBw9hE8 27EQEeSWkzo7ofq4VpL mNoYXJzZXQwXGZwcnEy BMPfJ46tATSRC549QPM vPXLdQXSgy6byu7jgF9 hhcnNldDBcZnBycTIgQ FIeMYr7iI8Sh9mqw7yz trByfIS5OYHpJJEvH3N xBM2wVBMhzWHtJ4prRE TvAMvexxZamtT9WTSqo QQqIXdzrdClVlXuA8Ar UJ5mPKbrvWZwUoA2CUQ yBBA6PSkoFLWnZTfhSm e3RAU6S8klTZN8L4wtr wEpohOtKRXpaLL5Thwz inVpTxpbU0NnDN85UNy bqBHmCxn0OIIsOTh4GQ olFRIkJWCoRoi1IWt4W 0lwTJWiQUPzH3FeCE8x RCLkMcn7JJRuYDilvtM rQYZ6FEnwBRWcMPW0QM JsfPYpZim9HEUlTYW7S 3jupoJypgP9C9yibMRq EZToC9udOMKfQPgfV6K bCH0uGWcjKek7TJK9MC jolbBiAEn9CBoiVRVnN Lc3EPCvbQXiCnY1WJDh RJM3JBdnrnBcbfD1LGf zjVCcWLhkX1naMGMxZO dsO1YxGP7fPJgoWht8U TIwNztccmVkMjIzXGdy ZWVuMjIzXGJsdWUyMjM 7XHJlZDIzOVxncmVlbj WxZFjhcLXoJmA3O8keR ECwUUKuL5PbTN9rWDUt Iuj4ZZG6KFywsqSzWMh eolCpydMdIfn8RKE6OA j5Ofgwo4T8tWRtmSGxr HtcczEgaGVhZGluZyAx Q688AQVwHQfmZKNhstp kSmg8g8plBaGuICMeaF 0vMMA7yIjmriRvuTJsD XtcHfH7O937OSY5KToa OCHpsrpiBBc6v2zaHtT sAWVszG6tLSY2hS7YSk ukTTWbrvhzWIj7FShqE OPokllxNmH7GHoqKZSy zDz3YBhcLSMkxoZ5Qpp tYXJndDcyMFxtYXJnYj psLNfzPFJsRFG6EfOaP SAol1Sjjqy8XxJyLxAe MKJTLudvoNLxVRU7MDA 0ZjFcZXBpYzkxMDFcYW 8dhEjflHu6qKbmCUAfu jU4sRDtYMfmv1jbUQI6 h5rxgdvaVTPrPCdsZh9 udHRibHtcZjAgQXJpYW b5vL75ORNrqK6xgAWvO Vk3QGAbtgHzqYhenD8s ZnMyMCBCLiBJbGlhYyB DcmVzdCwgTGVmdCBQb3 W1BMSfk7PqZHGft7Fdn KVpIBSljMIay3ssdhB2 LLVuNkF8GPHmbFCiUZA pQCOehxYQgYNciO2kqd BpcyBlbnRpcmVseSBzd VDzdHD0PJRmzD2yOGAr yF7wdj7ljGRbMADio6V aX0EnbUUgfPImsTCiB1 JccHJvdGVjdDAgXHBsY WluXGZzMjBccGFyfVxw KJP1Ke8= Disclaimer (test code = l3baqCLeIJSmbEIlGcZ 9844) tDGSuKSSrp3tuKYHdiX FuZzEwMzNcZnRuYmpcd WYeQHIfNtMeo5xvc818 zHIwk3xoKZWhYpH2pTW aFRXqyZKyG190UXPmQN pph3lgb0SlAIQtwRVtn 0X0SMCRpdvzfCr6gApo V96ch7J8VghgO1ykRAL vSFEeC1PgIQ5sMNXcKs q3OWU1YKV6JFYvLTQhT 8ZwDY6aEQNdjZZmVTf8 i4flqDssSNGpHZQ0c4h bSXammhMqVO8vaq4uiE v8h9idfzKlDNIpNZAwd BNKMYNzA0OqqLcdRb0x rMd6uSoyGkcpRNW1Evh 4ZL2sxd72dtj1xVrqIX WwgmnwLwQ2DHelMFCmu nafWRq8VOruUXEjjDX7 TNXpbCYfY1CbAUZwOZ2 fiel4PPM9DRurWYYmGh H7NLUdcTVaOTSflRivD Mybq805KYS1RfGrAN9i P5Bvp6H2xV0qlFQvIQB wiOFgFnLzTJUpot8flF JrAJkuq4QiPTP3wsP4u WRspWMlLQQnFG96Yxev y2LzLwmkLTF6ONBkjmY di6Ylx0fbNhTkypTbM0 egI7RqPEAtDCKeIMStA gWfcwQmw6Ojb7HhaCHs uRr2p4owYXQyRWFrkEl bk2ggMTJ6XKDkD8L6rK Pon4tgBWlvQJGuwHY7s bL0QODxcBXfQ0XtqR4s YVToNJ8qqfa1k3koXSD 5KWkaPWFhDpV7pwV0II BcaGVhZGVyeTcyMFxmb 346TUZ0RmPaGIKli9Yg K5CjdXozB80tfAdqF88 mVHVafHrbcP2jxQzjdE 5cZjBcZnMyNFxxbFxwb LCylgrdLQocnlN6ZVne hynfSDIzXUwaV7yvIbY oLDEnbOjxMLvpb0TuVA EtKKTwTaqsqcO7QDQVj 88lLCThp4KlTCDkgC0p nJZhKZpedxUrzJW5FPt hdmUgYmVlbiBkZXZlbG 7xMWQcRW8hYZXoxpFzn i7yqnIfGRBjOQMoG0Ux cmlzdGljcyBkZXRlcm1 dsaPjAKF7PATKGX7QAM PvHBMvo88sOPXjyWzum H0ejQUjyaJpKHGyw9Hs jG3kzUTDKYLgQ1goJN1 yWNwuh0NacJOxlQJkeV N6HKRaa3AoNiKcinWlt DOmuJEdM6JkkYtlX1cu XTLkWGLtkvWimATnv8V kLMFjxCV2vOBfJK6NAs DMz82aIAYiBPHFtnRkH ICgmNsitPB5ljN0kZ4b LiBJZiBhcHBsaWNhYmx jKAWox166at1mjrO7ZE GtCLYbgfccx4McLRPjP ZRuuI83KFSvNRUsjg2q faribPGbtiIyB5Xzrak 3wG4fEUQyRAblDARxAM ZzMjJcbGFuZzEwMzNca GljaFxmMVxkYmNoXGYx JHlrD1oiZhKgDjTpGgc wYXJ9 MD DaoCytogenetics Specimen Collection -Bone Gizkbb4499-76-80 19:53:30 Test Item Value Reference Range Interpretation Comments Ken Ruiz (test [id number] code = 71894) Cytogenetics Yes (Received) (test code = 8304) GUILLAUME (test code = GUILLAUME) Please schedule in the morning. Thank youPremedication type:->NoneAspiration laterality:->UnilateralP rocedure type:->AspirateProcedure type:->Clot MD DaoBondolores marrow [id number] 15:30:00Bhavik Armas NP 03/03/2020 1:32 PM Procedure: Bone marrow aspiration Date/Time: 03/03/2020 1:15 PMProvider Information:Performed by: Bhavik Armas NPAuthorized by: LISA Griffith Administrative Personal Assistant present: yesAssistant: Daiana DarlingMediilya superintendent institution used?: superintendent institution not needed Patient Diagnosis:Pre-procedure diagnosis: CMMLPost- procedure diagnosis: unchanged Indication:Indication: evaluation of disease status Anesthesia:Anesthesia: local infiltrationPatient anesthetized by: advanced practice providerLocal anesthetic: lidocaine 1% without epinephrineAnesthetic total (ml): 10 Sedation:Patient sedated?: patient not sedated Aspirate Site(s):Laterality: leftSite location: posterior iliac junaid tInstrument(s) used: [place] needleInstruments placed by: advanced practice provider Dressing:Dressing: compression bandage Post-Procedure Patient Assessment:Patient tolerance: wellEstimated blood loss: minimalComplications/Observations: no complications Discharge/Disposition:Discharge instructions: verbalPatient discharged to: discharge to homeDisposition mode: ambulatory Sample Disposition:Testing performed: flow cytometry, cytogenetics and pathologyResearch samples(s): yesProtocol #: [id number] [facility] Aspir[facility] volume obtained (mL) - [...] complications were observed immediately after the procedure.MD DaoGlucose [id number] 13:09:56 Test Item Value Reference Range Interpretation Comments Glucose Level 98 mg/dL 70-99 Reference rang e is (test code = valid for fasti ng 5699) specimens only. Guidelines established by the [place] [employer] guidelines (Standards of Medical [...] Total Protein, Sodium, Urea nitrogen (BUN). MD DaoPeripheral Smear for Bone [id number] 12:43:13 Test Item Value Reference Range Interpretation Comments Peripheral Smear (test code = 4273) PSMEAR MD [facility]aoGeneral [facility] Add-On [id number] 00:17:18 Test Item Value Reference Range Interpretation Comments Ordered (test code = 6568) Test Added Test Needed (test code = 7604) GGT MD DaoPathology Outside [id number] 15:40:00 Test Item Value Reference Range Interpretation Comments Materials Received (test v6vjhZWyHTFzkJUfZfFl code = 9973) GQKwJTIdv1rbHFBtfELl ZzEwMzNcZnRuYmpcdWMx TZLaPjAbf8ock631iWWh o7nyVWBfBdM3qRBmUMBt cXKpA941BWHfZPuci5md a3CjIIAeuSQae8Q7WPHP fvcmmXj3gAiuR51gg8Z4 YuhqQ4iwAPPfPSHnA7Nn HO4vVKBsPuq3EHG3CRK8 BUTrFOOrH9UeOY3oWLJv gHLeRWf4w4zinMryIMFc KVL3s6dxSOfwsoPtXH8t nw2tiCt3w5uxuwGgNWKk JLPbfPJDFZQdA2LudKkn Sa6roGv0vRuvBostRXS9 Aqf7WB8eqd64fed4qJtd JYRjyfipAlN6SAcvHMBl xzhzRYg2PMdaNGSgdCga MFxtYXJncjcyMFxtYXJn gYQ2SXZfyFYkG5BbDVJv IFntHHPovvk4GsAvFa3e jLDeaRshIKobo0bjc5az mOBzJit1SFXhEgVtOluq TNstd6Fwz7tbJGThvm4k FRR9uAReaRuyf9W4sPUz AJWxrUQjuaMrGYPqgr89 vGTzuCFljRPgod5amjYu yIUqzDCnWUU7sYHgdfSp LARtgQXnFWOgLQ2hpDKd MNSkhJ8odlmyBEHcAcAo tcuiKXHvwOritpPuAl1u fNfgXTM3BYjgG2hfmG2r VlB7ERhzB8wxnR9bYSw5 RNuaxPY7KCAeiE1vHQ2w yicct7yeVlPsEH2hgcch u8ssFlSsIL9nqlc3f0br BFT2HLynVGLuPzK4icF8 NDBcaGVhZGVyeTcyMFxm v773YDA5TeHaNPIrz2Vn Z4KqrFtxR08qhDhkY97y CABinDednI9mdVnooF6w LaNpAzJiXRv9da22PNc1 oumczKwtKBt5soUlFIJj VIV5UCJfdULpSUCdO2o6 cuAjEQRgWFQ5XIPdqPBj TATwQ2s1weAdLBU2RGy0 cnBhZGRmdDNcdHJwYWRk YjBcdHJwYWRkZmIzXHRy wHOwaGLhdVYkoG3muGzo VHBujTSblS0jMKC3EGKt cmgzMjBcdHJoZHJcbHRy gb68QGJbhrQogHMwuKqr jYUiVRQ3PYBfLQEmQVLo RTU6DJZkGhEzpwChHBgz bGJyZHJiXGJyZHJzXGJy JIX9ZQXeNjMbnmOkHDhm bGJyZHJsXGJyZHJzXGJy XCG0WAInQtLugbYsBYsa bGJyZHJyXGJyZHJzXGJy IIR4UPPvCcVxojRrBMzn bHBhZHQxMFxjbHBhZGZ0 K8uutKIfWHWbIZxgbTEr EXWhK2fkwMDgSLfeWDFo cGFkZmwzXGNscGFkYjBc C2xtXOFlIxCdL4SzoSh5 MDAwXGNsdmVydGFsdFxj sDNdJLJ1KSYqOMAaVCZe TIU6SNBrKwSfzhGgWJhc bGJyZHJiXGJyZHJzXGJy GDV8POVuHtLxmpVuXOfl bGJyZHJsXGJyZHJzXGJy DPX9HRPuXdRfivHrLAhe bGJyZHJyXGJyZHJzXGJy VMQ2TPHaKqEilwGpEBpi bHBhZHQxMFxjbHBhZGZ0 C3svkMXtXTQrPBayxJRf IGQyI4axmEQiODueLROu cGFkZmwzXGNscGFkYjBc P2ftANQeGoIzX5ElvOd5 NjAwXGNsdmVydGFsdFxj sULqIMT5QCJzLEZeYCIe NRP6ZIEgCkSoyiNoUHdo bGJyZHJiXGJyZHJzXGJy SIB8MZSrBhYmcvHaDZwv bGJyZHJsXGJyZHJzXGJy OZP4GWQbQlTbjcIkZDvf bGJyZHJyXGJyZHJzXGJy DVT7NIXnDcEmltEtQOex bHBhZHQxMFxjbHBhZGZ0 F4ddjQCjPIQiINqgsKIs WDQxW1jdlWUsKLvpQRIk cGFkZmwzXGNscGFkYjBc R8zmXPQiNeJqI3ItxYa7 YsTdNMKvnaDmpV08Fppd m3BnTYEtFYR0XMosHExe bFxwbGFpblxmMVxmczIw KQbnmkixLFSlVKurL2fa ZmJvCFOhwDjzXLjch7Ex XGYxXGNmMlxmczIwXGIg JIKhJBOllU0vSyncP5Kv rU4fTSbgWjmiQ3tvORQw a1FgjN3oFNxdcNOonsrw MVxmczIwXGxhbmcxMDMz NZddH8jpYiHmOCKrqBkl ADzvr1IpNOOpERHwOene qnHdNDk9ksIsOZKqrDnm bJJuEOszcdNotYkok4Mf biPtlGguXXNkLKp2qvEw mowcyKh8wBBbsSpsIXGg vKphrI3oBsKoSySvESiz bGFpblxmMVxmczIwXGxh umxfECEyMNfqK3rbEyMv VPAzjChjWTqps6CeLILt QCYgJfrbtsKmRZUuE10u bGVjdGVkXHBsYWluXGYx XGZzMjBcbGFuZzEwMzNc aGljaFxmMVxkYmNoXGYx LDtcD5hiWbLvT6ShAFFu AzYwnEYkJ3oxT5AgkSwg YXJkXGludGJsXHNzcGFy MDG3dENgebGafISczJJs MIXxWZreTNI8hKUvcvlx dCXzntdaTTaubvG3LQHw YWluXGYxXGZzMjBcbGFu ZzEwMzNcaGljaFxmMVxk ZxTnKXJeRDvqW0nlQyVp A8RdXOHtHiGpTaJYMUKe aXZlZFxwbGFpblxmMVxm czIwXGxhbmcxMDMzXGhp J8kzYvBqEYXlxIpoQTeq j5IxHDUoHXUmHlginmPb JWp7vjUoITDzzNwhjQ43 Tkqpyv34IYWvw7swPRTf A7MmoMGeSDCuqEFhRVnu MDhcdHJwYWRkZmwzXHRy cGFkZHIxMDhcdHJwYWRk ZnIzXHRycGFkZHQwXHRy aHCeMKI8R4q6dmGhFCFr XIe3liRpJTFdAcEnnSRu SRQ2JXc3ZoiwuaD2iAOq U4i8IcbtmyGsQRajzAKy bs92VWRogpKtlELocDyi bJDkMKZ2DMXrJCIhVMLe OXF6QNBeWzTqzuJyIFdg bGJyZHJiXGJyZHJzXGJy NKA5RGFfCcGmkyKrKPdx bGJyZHJsXGJyZHJzXGJy UQW3OJVeUoEpsyMxSSlx bGJyZHJyXGJyZHJzXGJy HDO6SDPxAjKjmbLrYGbr bHBhZHQxMFxjbHBhZGZ0 D6eopXTfXXXgJPuyqHHk TIFoE5ralEGdHOlsODPz cGFkZmwzXGNscGFkYjBc E7niHJVtYrRmB0VerLv5 MDAwXGNsdmVydGFsdFxj hYMfHUV4YGXgWJXxYWKl JGT2KOQrOaVaofKlOVrs bGJyZHJiXGJyZHJzXGJy MAZ3SEPpPfPdnqKkFSdi bGJyZHJsXGJyZHJzXGJy NBR5ILMhVeZjenInSTgb bGJyZHJyXGJyZHJzXGJy XKQ6PEScFaLyqsLxYKxz bHBhZHQxMFxjbHBhZGZ0 O4evkMMsSIVjFHjvgMUo LVZvT0iknKWqROskLELv cGFkZmwzXGNscGFkYjBc H3ykNNSvVlSgP9RbnHz0 NjAwXGNsdmVydGFsdFxj bLSzTJQ8KGXoQKKuRLDq DXO2KGVyAkFkofAiYRtd bGJyZHJiXGJyZHJzXGJy FQD9ORWaEqNoflPhOVwr bGJyZHJsXGJyZHJzXGJy WRX9PQEwFkPmzxHkGHzt bGJyZHJyXGJyZHJzXGJy HAW3KZRpYfIfqbQsDTbg bHBhZHQxMFxjbHBhZGZ0 V8scxBNnHCMyYOtgqPNb XYYvI5yplIQtVYepVLXi cGFkZmwzXGNscGFkYjBc Y1mrYSAvGcEqB9RcgNi1 MaSjTNSyrrLqeO64Rqmp i8IkLKKkXCS9ZIziTBbk bFxwbGFpblxmMFxmczI0 XHBsYWluXGYxXGZzMjBc bGFuZzEwMzNcaGljaFxm HQeeAiHdMPHjGYehJ0wg YoYaW5UgDPWzTaPdVK6a DEKyRC3aFDI9FLEiJeBp G4WiLYNYGK4ON7DtIIAJ Z6SdtNptvI4sZeAcJbGc BVorXQ8mQVScN5cxyOUi IPFgVXEnE1dvAnLpbK5o aFxmMVxjZjJcZnMyMFxs dHJjaFxjZWxsXHBhcmRc bK42Cqopp4PrMLZoMOX1 MFxzMFxxbFxwbGFpblxm WFseihQ8DNYiJPgcLFOn XGZzMjBcbGFuZzEwMzNc aGljaFxmMVxkYmNoXGYx QRqvB7dxWrIeS6AjLNPb EpSpXh87NvGyXlXcqZby oL7gPpPcFjJrMVbeMS0y ERSfD7hzoFYsRBSpJWLp L2cmBpGngN3rySmgCMir ZjJcZnMyMFxsdHJjaFxj UBsdFMSwcvRqtT84Fdzm l2SpOZPuISE6HMcnHRzn bFxwbGFpblxmMFxmczI0 XHBsYWluXGYxXGZzMjBc bGFuZzEwMzNcaGljaFxm AKbbNzVyTISnPKouA2kg FsHbW3DxRXXpOsUiUl5w CH8dYSWmMFMaUImyROAh XGZzMjBcbGFuZzEwMzNc aGljaFxmMVxkYmNoXGYx TPcyM6duSiJvO4TvEORl JhXqeLOrH3gxO4GguZjj bjAqnZehv5pqdRPnBJda b8ZkvsPpwYeoCYHsDGBa XHBsYWluXGYwXGZzMjRc jAzsbS8xZoRkZbNpHAzb OB2wFWKhU5mtdXZwBGHv NSQrG8vzBmLneL7shUha MVxmczIwXHBhcn0= Diagnosis (test code = y1cziHQfVKHdvCY0HHVu 34) QICgo6nav9XmsKQmgEGo HCisiLFoawJzef18xEB9 uY67PG3rXHDrUkK6BFXl phC5Ttl9XQTrGZWmyXMm V899t6lsw3ccenAqpWE4 wCtwCNTiUDJ2XxSjWYG8 JKT7RTl8lVZmAeJnhNdu SMzaWXS3UlLbRCz8tTGl MtHgoYu3OEKxJYX3VDn5 IQp1uCU5XPPcqKb3QtIh TLQ0YqtnDMo1iNi5VCMq vAe8HqWlCZM8PFHrBNIn rLvvkH3xQmYgTXucYUOr Iv8aZBQvRQGlx9psVLBb w5UywLxnM2kigSDtAAO1 zA3wPPGhj7AnrvX3IVPh oGTfxuWpWK7zZUZbcWCh IGltcHJpbnQgKEFEMjAt AmQtKAZrRFA4QoJrEiAo MOh1TLNatkcbIFVhxTi2 BjFxoTxmEqUxWBICVk5O HKWjCCfRIJ8MT75TX0dC JQHjWFUTG5ZFFMYlXiKd KHIaWAFbFECZWBKWQ1ow YXJccGFyZFxmMFxwYXJc cGFyfQ== Comment (test code = m5tddXIhUPKjuQU1QIPx 9835) OVSjt5uch5QewIYdgAFk GSgofFOdixEqhu91gVV7 mM83HH8fNROmGsK6WZYd yjE6Bgx7LPVqQUCvoVSq T074j0tiu0sjmnAisQS0 fVxwYXJkXHBsYWluXGZz MjAgRnJvbSBvdXRzaWRl ENNyAD6wHDUeBF9sbN6p rfExRPM0iYEtyFV8lPRu iAElLLFibIUlu0rkoHHq yJHmw99zY0t6t7Lfvp3g cGFyXGYwXHBhciBQZXJp hTyctxBwYSCjb30nXQDy JPLnDEEle3irJUamdWtx P1o2a8WqinM6qHHyIGas L7IjGJZwMLDxfxXckVso V3q6VPMnXN9hAR6bmy4e uMGefd5gSGVjypzzCATc Ok3aXPLyBNBaz9gxV69g FIXquG0vr0gzRI0uMQXk z7Wgh7ZisUuqpsTjr9nh laOgZYg2dRDqM9XwhWVi WEJrJItxKQnqtVUjsa48 IHdpdGggdHJpbGluZWFn WJYeKF5jcJ4ux2ylq6iq WlOKDWehb3QxmR6zqGzz odBvdbIkqCBmh8SihZF1 wODzWGKtGOC8MEAeTURq kTCiuU5xFFUgKMEra6Uk ev1oET2efV6vv0XwxR6s OWYwk1luEW84UGPykHKe dKKisNlpiQumJ9b4BLQx PudqJ0UsSY6nDG14fG6D LKFxGUsaD4qasZzixJYf hS5lsdYxq0GsWC6sJ9Br OYM1n8O5hSFxQBTbFAZl x84kLQOpWWFayQSksCku tPzhb1fyXfI0XSUfANHy rUxyMFREAHpkB3gdtCeg oBJeO4LxqtZaq6S0sGUa XBR4oQmmoGLaajQomRPq HN5paZ8cufVuDVOxiBdy K8O5CYHaoMbedNvkjCMn SXRzgNC5YPJtMP3cNHKx rLTpyn6cFETrCRnxml2q NYOzrcKiwYPcfjElwD13 roXsqdIpgNdknLXpT4Yw gTBlrb4yUGPvoF5pvYCm p79oSPSyxWmqfMlmocHm oRCkvsFbjR03tdFdyaCg oUaokNJeH4DqeLBxEZOr T9TzxK2cZmpjpt1zlPNq IFxwYXJccGFyIEJvbmUg wHPafz34VNSsXWMmsdEz cI78IE58HNycdBKzT3Yz xBWjSSPfSVTolCE6dURd fZcbgI8sugLgg6GxYFzu yTmhkFXdD4Cnr7XumwNs cJB4iYVuqMyetq7zFLT4 pUvyh2quGYGcsVndYCZm ZZSlGGtgzSp3FBc0UIVs B3ArJKPaFI8aFNHgMCbm skrkX0m1TOQmWQCdIGVi BLS1WKXuKGKiggAwd87u UYNgzkLtnZxht1iqMsT6 YXGhUSKjOVA2tsMiruNc FM74QNVgDqG4i7PucQQx PGbhip6zxWAlBSGzkzJY EQUpm6Q2c7nxMUJsDKHe g3gkB2hdslBoc5R1MsSv m892ZY35aF5hKQioN3r4 w4zoahH0aTNrt6I0GKxb z6deb3LhYBKwrc6auWMo ZT2kmDEwy7IffO56eGFw TmCVRUQHCEEpu0ulNFUp yzWxKv9qed0jaTb1sSIf BO3qRYSlMVSWMD39VBR2 dQiqI1QETOpyJZMUOM4J T3GcOWDxqEttm8BjIvJm DlObx9ewI1RlBUAfh0A1 JTvix9kvf5XyAY7bE5S6 sDCbPTGgy4OrwRLpPy9a TMjNDuPrKvWrA9KaCODC TFIsIGFuZCBNUEwuIFxw YXJ9 Disclaimer (test code = u0crkLQyFLJueSJxMdYk 9844) HKBqWNMlf2ymJOGfnFTc ZzEwMzNcZnRuYmpcdWMx BZGoOyDex2nvo222qESk x7pkEIWoNiK8dMXbAGAh zMRtC794MYFaSUoxw4lz l4BjHGFoqPHfg0H5KQTF yzwkcPe6fOquW80um8N5 ToczV0qwMYFiCJWmV7Yt OQ3oKPCvJgc7KBJ7UHV8 EKYoXBUvI5TfGW6gEVQk gEMwZCh7n8yhbBdsVEVv MGD7i1dqLDnjtyOlVC7c xk8tiQq5v6gzxlDiJXDi BUVzoTIOOQPnK7EodLnh Ki3jjJd0cBywYjqeJKG4 Tug7FV1bmc55ntw7zBie DELbjztnFlI9PLscUUZg ugvgZOi8XUynEXDwsQW8 VPYqpNYnT4ZlKRCkPA0r yey6THZ3HPupNNVbQvU5 NDBcaGVhZGVyeTcyMFxm z507PKR2ZmLyKL3mZ2Bx b7D7nT7skOIaWBYqcODi SpItSMZaas9yjWVzTDrf k2NoCJT8jjB6gVAxeTLt MCCrJA72Jhocn3CeBfdi OXR0QTZleaHpz1Smy1qi NcCkxkZzE2vvH0NiXYZw NVFyBAIdZgVqebGry4Fx z7GibNIptXx2z8kiWSRj RELccDmse1cfXRY9JPIi E4O0aTDhs3esIVpdJJFx aAZ8ubT9THMngGDrX7Ls qT1vWYEkXR3tvrb9g1aq RMI3EHlfMGKlHkE9ntG5 NDBcaGVhZGVyeTcyMFxm b114PHC2XgCeEFHcs4Ff Q8ZpmTbkQ82spErvR09t MZHhzPoxfX6vrYowyT2r ZjBcZnMyNFxxbFxwbGFp xdhhVCrmssN9TWucdrhh LOOzNMyiC1wvBfYwQTPj pKcrSCfoc9XqHJLyRSCr IlygtmX6JRSJx99kMQQg h2BqHDFvvW8jaQDaUNvh laJfqWF5VOjscuYlTxAo otXcJIUumN1bOVBqVD9f ANAmguWgah1ynvKwAUZo EYXhE3JuqwdovBdxgaLr FUUskj0abvErFJV9OTUM KL9EXAJmCHGxi25sUDOe zInazK6pfXYlchSzELSw x8IudC9guKSJKTHrC4ls XS4gJCmfq9RbzPHfiNIl gEE3LCSxu7GoAmVmbiBv aBYkhDZlB6ZqbIehV2dk GLGkLWVshcAkhLLtm1Nt YETqmQA7zJJuPY4DWzSV x91eOATiIGVHztBvZOVt eHvnfVO2gpG2uO4nRqJX ZiBhcHBsaWNhYmxlLCBj c941sh2uhbN4FGRvVZGx yxdnw1QiAIXiRNKvjV74 DKBqCOXsnr3yotpawHUv xdDnR3Sgsaa3oY8iZJOi YWluXGYxXGZzMjJcbGFu ZzEwMzNcaGljaFxmMVxk ApUdMRDqWUpyU0ifRaVf ZnMyMlxwYXJ9 MD DaoFlow Cytometry Specimen Collection -Bone [id number] 18:41:43 Test Item Value Reference Range Interpretation Comments Flow Cytometry Yes (Received) (test code = 8319) Ken Ruiz (test [id number] code = 26973) GUILLAUME (test code = GUILLAUME) Premedication type:->NoneAspiration laterality:->UnilateralB iopsy laterality:->UnilateralP rocedure type:->ClotProcedure type:->BiopsyProcedure type:->AspirateSelect the Bone Marrow Stains:->IronSelect the Bone Marrow Stains:->Reticulin/Trich brenton MD DaoMolecular Diagnostics Specimen Collection -Bone [id number] 15:07:54 Test Item Value Reference Range Interpretation Comments Molecular Diagnostics Yes (Received) (test code = 8400) Pathology (Qualitative) (test code = 8412) GUILLAUME (test code = GUILLAUME) Premedication type:->NoneAspiration laterality:->Unilateral Biopsy laterality:->Unilateral Procedure type:->ClotProcedure type:->BiopsyProcedure type:->AspirateSelect the Bone Marrow Stains:->IronSelect the Bone Marrow Stains:->Reticulin/Tric hrome MD DaoBondolores marrow aspiration w/ [id number] 19:00:00LISA Carpenter 12/15/2019 8:01 AM Procedure: Bone marrow aspiration/biopsy Date/Time: 020 3:18 PM Provider Information:Performed by: CORIE Carpenteruthorized by: LISA Griffith Administrative Personal Assistant present: yesAssistant: Aga Krishnan superintendent institution used?: superintendent institution not neededPatient Diagnosis:Pre-procedure diagnosis: CMMLPost-procedure diagnosis: unchanged [...] Interpretation Comments V K (test code = 22857-5) 5.1 3.4- 4.5 mEq/L H Lab Interpretation (test code = Abnormal 49802-1) MD King HIV 1/2 Ag&Ab Path [id number] 14:20:41 Test Item Value Reference Range Interpretation Comments HIV 1/2 Ag&Ab Negative for Interp (test HIV-1 antigen and code = 9394) HIV-1/HIV-2 ____MELLY antibodies. No Monisha NEWBERRYate d by: laboratory BARB NEWBERRY Dictated evidence of HIV Date/Time: 0 12.11.2019 infection. If 9:20 AM CDT acute HIV Transcribed Ian e/Time: infection is 12.11.2019 9:20 AM suspected, CDTElectronical ly Signed consider testing By: maikel TELLES for HIV-1 RNA. 12.11.2019 9: 20 AM Bayron King RPR Path [id number] 14:20:40 Test Item Value Reference Interpretation Comments Range TMP RPR Path The Rapid Interpretation Plasma Reagin (test code = (RPR) assay is [place] RLY 133674) negative. If Isabelle Crook ed by: syphilis BARB infection is Ayesha NEWBERRY suspected, Date/Time: 12.01 please perform 9:20 AM CDT a Treponemal Transcribed Ian e/Time: specific 12.11.2019 9:20 AM screening CDTElectronical ly assay. Signed By: maikel SMART 12.01 9:20 AM Bayron King HCV Ab Path [id number] 14:20:39 Test Item Value Reference Range Interpretation Comments HCV Ab Path There is NO Interp (test serologic code = 8923) evidence of ____BARB Hepatitis C CONI,Dictated by: virus antibody. BARB BRADSHAW IN,Dictated Date/Time: 12.01 9:20 AM CDT Transcribed Ian e/Time: 12.11.2019 9:20 AM CDTElectronical ly Signed By: BARB GRESHAM, on 12.11.2019 9:20 AM Bayron King HBcAb Path [id number] 14:20:38 Test Item Value Reference Range Interpretation Comments HBcAb Path There is NO Interp (test serologic code = 8924) evidence of ____BARB Hepatitis B CONI,Dictated by: virus core BARB NEWBERRY, Dictated antibody. Date/Time: 12.01 9:20 AM CDT Transcribed Ian e/Time: 12.11.2019 9:20 AM CDTElectronical ly Signed By: BARB GRESHAM, on 12.11.2019 9:20 AM Bayron King HBsAg Path [id number] 14:20:37 Test Item Value Reference Range Interpretation Comments HBsAg Path There is NO Interp (test serologic code = 8922) evidence of ____BARB detectable CONI,Dictated by: Hepatitis B virus BARB MORGAN,Dictated surface antigen. Date/Time: 12.11.2019 9:20 AM CDT Transcribed Ian e/Time: 12.11.2019 9:20 AM CDTElectronical ly Signed By: BARB GRESHAM, on 12.11.2019 9:20 AM aByron King HTLV Path [id number] 14:20:36 Test Item Value Reference Range Interpretation Comments TMP HTLV I/II Patient plasma Interp (test shows no code = 7549) evidence of ____BARB HTLV-I/II CONI,Dictated by: antibodies. BARB NEWBERRY, Dictated Please retest in Date/Time: 12.11.2019 6 months if an 9:20 AM CDT exposure is Transcribed Ian e/Time: suspected12.11.2019 9:20 AM CDTElectronical ly Signed By: BARB GRESHAM, on 12.11.2019 9:20 AM Bayron Hupmhrey Plasma Reagin (RPR) [Syphilis SCREENING]2019-12-11 04:57:30 Test Item Value Reference Range Interpretation Comments RPR Screening (test code = Non Reactive Non Reactive 370497) MD Aponte C Virus [id number] 04:17:10 Test Item Value Reference Range Interpretation Comments HCVAb. (test code Non Reactive Non Reactive Performed at: = 5762) [facility] [address] [address] MD Aponte B Surface [id number] 04:16:51 Test Item Value Reference Range Interpretation Comments HBsAg. (test code Non Reactive Non Reactive Performed at: = 5747) [facility] [address] [address] MD Fay Saldana Total Ig Core Ab (SCREENING) (anti-HBc total Ig; HBcAb total Ig)2019-12-11 04:16:48 Test Item Value Reference Range Interpretation Comments HBcAb. (test code Non Reactive Non Reactive Performed at: = 5742) [facility] [address] [address] MD DaoHTLV I/II [id number] 04:16:23 Test Item Value Reference Range Interpretation Comments HTLV I/II Ab. Non Reactive Non Reactive Performed at:M D (test code = 5842) [facility] [address] [address] MD DaoHIV-1/2 Antigen and Antibodies, Fourth [id number] 00:13:43 Test Item Value Reference Range Interpretation Comments HIV 1/2 Ag & Ab, Non Reactive Non Reactive Performed a t: 4th Gen (test code [facility] = 9280) [address] [address] MD DaoResearch Protocol [id number] 21:05:02 Test Item Value Reference Range Interpretation Comments Research Prot (test code = 7189) 063476 MD DaoVitamin B12 [id number] 19:22:54 Test Item Value Reference Range Interpretation Comments Vitamin B12 Lvl (test code = 8017) 442 pg/mL 211-946 MD DaoWcuyyteuKdupugqb7198-48-19 19:05:24 Test Item Value Reference Range Interpretation Comments Ferritin Lvl (test code = 5608) 219 ng/mL 30-400 MD DaoConfirm [id number] 18:37:44 Test Item Value Reference Range Interpretation Comments ABORh Confirm. (test code = 882-1) A POS MD [id number] 18:01:40 Test Item Value Reference Range Interpretation Comments Erythropo Lvl (test code = 5523) 20.2 2.6- 18.5 mIU/mL H Lab Interpretation (test code = Abnormal 28848-0) MD DaoNT-Pro BNP (In-House)2019-12-10 17:45:30 Test Item Value Reference Range Interpretation Comments NT ProBNP (test code = 9385) 394 pg/mL <=125 H Lab Interpretation (test code = Abnormal 82102-6) MD DaoPartial Thromboplastin [id number] 17:23:50 Test Item Value Reference Range Interpretation Comments PTT (test code = 6773) 31.8 24.2- 36.0 second(s) MD DaoProthrombin [id number] 17:23:49 Test Item Value Reference Range Interpretation Comments PT (test code = 6746) 13.5 12.0- 14.3 second(s) INR (test code = 5973) 1.06 0.90-1.10 MD DaoHutaldtgOmaidbkynw4737-58-55 17:23:24 Test Item Value Reference Range Interpretation Comments Fibrinogen (test code = 5610) 290 mg/dL 214-503 MD DaoD [id number] 17:23:23 Test Item Value Reference Range Interpretation Comments D-Dimer (test code = 1.20 0.10- 0.50 H The cut off value for 5419) mcg/ml FEU exclusion of ve nous thromboembolism is <0.50 mcg/mL FEUs (fi brinogen equivalent unit s). Lab Interpretation Abnormal (test code = 60667-0) MD [id number] 17:20:49 Test Item Value Reference Range Interpretation Comments TSH (test code = 7578) 1.27 0.27- 4.20 mcunit/mL MD DaoFolate [id number] 17:19:59 Test Item Value Reference Range Interpretation Comments Folate Lvl (test 12.3 ng/mL 4.8-24.2 Hemolyzed s pecimens with code = 5625) Hemolysis Index >30.0 (30 mg/dL or vi sible hemolysis) may cause interference an d give falsely high re sults. MD DaoRetic [id number] 16:43:11 Test Item Value Reference Range Interpretation Comments Retic Cnt Auto (test code = 15659-7) 2.4 % 0.5-1.5 H RETHE (test code = 6973) 37.7 pg 23.2-37.5 H IRF (test code = 43179-9) 25.2 % 2.3-18 H Lab Interpretation (test code = Abnormal 73396-0) MD DaoCOVID-19 (SARS-CoV-2) PCR-Asymptomatic [id number] 18:10:47 Test Item Value Reference Range Interpretation Comments COVID19 (SARS Not Detected Not Detected This test is a CoV-2) Result qualitative (test code = reverse-transcr iptase 52488-6) polymerase artem n reaction (RT-PC R) developed [...] fied by the Microbiolog y Laboratory at [facility]. Results must be interpreted wit hin the context of all relevant clinical and la boratory findings and sh ould not form the sole b asis for a diagnosis or treatment decision.Vacuum Technician al controls are in cluded to assess [...] sting if clinically dave cated. 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 [id number] 09:50:00 Test Item Value Reference Range Interpretation Comments ACTIVATED CLOTTING TIME 208 sec Refe rence Range: (BEAKER) (test code = 74-137 seconds, 441) Baseline/TESTED AT [place] [id number] [facility] [address] WBGC-[id number] 09:13:00 Test Item Value Reference Range Interpretation Comments ACTIVATED CLOTTING TIME 246 sec Refe rence Range: (BEAKER) (test code = 74-137 seconds, 441) Baseline/TESTED AT [address] [address] CBC W/PLT COUNT & AUTO [id number] 07:02:00 Test Item Value Reference Range Interpretation [...] Received comment: User comments: Slide comments:BASIC METABOLIC [id number] 06:34:00 Test Item Value Reference Range Interpretation [...] PATIEN TS. CBC W/PLT COUNT & AUTO [id number] 11:06:00 Test Item Value Reference Range Interpretation [...] = 3438) Received comment: User comments: Slide comments:LIPID [id number] 10:22:00 Test Item Value Reference Range Interpretation [...] 130-159 High 160-189 Very High >=190COMPREHENSIVE METABOLIC [id number] 10:22:00 Test Item Value Reference Range Interpretation [...] S NOT APPLICABLE FOR DIALYSIS PATIEN TS. PT/[id number] 10:11:00 Test Item Value Reference Range Interpretation [...] is2.5-3.5 for patients wiht mechanical heart valves.TISSUE [id number] 16:04:00Surgical Pathology Report Case: [id number] Authorizing Provider: Madison Wang MD Collected: 09/24/2018 1109 Ordering Location: [facility] Received: 09/24/2018 1335 PERIOPERATIVE SERVICES Pathologist: Alfonso Wong MD Specimen: Pl aque, RIGHT CAROTID PLAQUE ARTERY, RIGHT CAROTID, ENDARTERECTOMY:CALCIFIC ATHEROSCLEROTIC PLAQUE Signing Pathologist Direct Phone Line: [phone] signed by Alfonso Wong MD on 09/29/2018 at 4:04 [id number]; [id number] stenosis right side Right carotid plaque Specimen is received in a formalin-filled container labeled withthe patient's information and labeled "right carotid plaque" and consists of a tubular shaped segment of calcified tissue measuring 3.5 cm in length and 0.8 cm in diameter. Respiratory Physician sections are submitted in A1 for decalcification. [...] MDReport Verified Date/Time: 09/28/2018 09:56:53 Reading Location: [address] Ortho Consult Reading Room [id number] 06:09:00 Test Item Value Reference Range Interpretation Comments MAGNESIUM (BEAKER) (test code = 1.7 mg/dL 1.6-2.6 627) BASIC METABOLIC [id number] 06:09:00 Test Item Value Reference Range Interpretation [...] FOR DIALYSIS PATIEN TS. MR, BRAIN, WITHOUT [id number] 17:40:00FINAL REPORT MRI brain Comparison: CT dated [...] [place] Verified Date/Time: 09/27/2018 17:40:08 Reading Location: [address] Neuro Reading Room [facility] METABOLIC [id number] 05:35:00 Test Item Value Reference Range Interpretation [...] /100 WBC 0-0 (test code = 413) [id number] 06:27:00 Test Item Value Reference Range Interpretation Comments MAGNESIUM (BEAKER) (test code = 1.9 mg/dL 1.6-2.6 627) BASIC METABOLIC [id number] 06:27:00 Test Item Value Reference Range Interpretation [...] (test code = 413) CT, BRAIN, WITHOUT [id number] 14:11:00FINAL REPORT CT, BRAIN, WITHOUT CONTRAST INDICATION: [...] is recommended for further characterization. Signed: JR Gilmar, Breanna WHITINGeport Verified Date/Time: 09/25/2018 14:11:51 Reading Location: [facility] Radiology Reading Room [id number] 04:50:00 Test Item Value Reference Range Interpretation Comments MAGNESIUM (BEAKER) (test code = 1.7 mg/dL 1.6-2.6 627) BASIC METABOLIC [id number] 04:50:00 Test Item Value Reference Range Interpretation [...] WBC 0-0 (test code = 413) GLUCOSE-STAT [id number] 14:26:00 Test Item Value Reference Range Interpretation Comments GLUCOSE RANDOM (BEAKER) (test code 118 mg/dL 70-110 H = 652) HGB/HCT (H&H) - STAT [id number] 14:26:00 Test Item Value Reference Range Interpretation Comments HEMOGLOBIN (BEAKER) (test code = 9.7 g/dL 13.0-16.8 L 410) HEMATOCRIT (BEAKER) (test code = 29.0 % 40.0-50.0 L 411) CBC W/PLT COUNT & AUTO [id number] 11:47:00 Test Item Value Reference Range Interpretation [...] Received comment: User comments: Slide comments:BLOOD GAS, [id number] 10:40:00 Test Item Value Reference Range Interpretation [...] (test code = 1819) 100.0 % GLUCOSE-STAT [id number] 10:40:00 Test Item Value Reference Range Interpretation Comments GLUCOSE RANDOM (BEAKER) (test code 113 mg/dL 70-110 H = 652) HGB/HCT (H&H) - STAT [id number] 10:40:00 Test Item Value Reference Range Interpretation Comments HEMOGLOBIN (BEAKER) (test code = 10.5 g/dL 13.0-16.8 L 410) HEMATOCRIT (BEAKER) (test code = 31.0 % 40.0-50.0 L 411) SODIUM NA-STAT [id number] 10:39:00 Test Item Value Reference Range Interpretation Comments SODIUM (BEAKER) (test code = 381) 135 meq/L 135-148 POTASSIUM-STAT [id number] 10:39:00 Test Item Value Reference Range Interpretation Comments POTASSIUM (BEAKER) (test code = 3.8 meq/L 3.6-5.5 379) HEMOGLOBIN [id number] 10:36:00 Test Item Value Reference Range Interpretation Comments HEMOGLOBIN A1C (BEAKER) (test code = 5.3 % 4.3-6.1 368) [id number] 09:00:00 Test Item Value Reference Range Interpretation Comments MAGNESIUM (BEAKER) (test code = 2.1 mg/dL 1.6-2.6 627) COMPREHENSIVE METABOLIC [id number] 09:00:00 Test Item Value Reference Range Interpretation [...] NOT APPLICABLE FOR DIALYSIS PATIEN TS. LIPID [id number] 09:00:00 Test Item Value Reference Range Interpretation [...] 100-129 Borderline 130-159 High 160-189 Very High >=[id number] 08:56:00 Test Item Value Reference Range Interpretation Comments PARTIAL THROMBOPLASTIN TIME 36.8 seconds 22.5-36.0 H (BEAKER) (test code = 760) PROTHROMBIN [id number] 08:55:00 Test Item Value Reference Range Interpretation Comments PROTIME (BEAKER) (test code = 13.8 seconds 11.7-14.7 759) INR (BEAKER) (test code = 370) 1.1 <=5.9 RECOMMENDED COUMADIN/WARFARIN INR THERAPY RANGESSTANDARD DOSE: 2.0 - 3.0 Includes: PROPHYLAXIS forvenous thrombosis, systemic embolization; TREATMENT for venous thrombosis and/or pulmonary embolus.HIGH RISK: Target INR is 2.5-3.5 for patients with mechanical heart valves.[id number] 05:31:00 Test Item Value Reference Range Interpretation Comments PHOSPHORUS (BEAKER) (test code = 4.0 mg/dL 2.3-4.7 604) [id number] 05:31:00 Test Item Value Reference Range Interpretation Comments MAGNESIUM (BEAKER) (test code = 2.0 mg/dL 1.6-2.6 627) BASIC METABOLIC [id number] 05:31:00 Test Item Value Reference Range Interpretation [...] PATIEN TS. CBC W/PLT COUNT & AUTO [id number] 05:11:00 Test Item Value Reference Range Interpretation [...] = 2801) RAD, CHEST, 1 VIEW, NON [id number] 08:23:00Reason for exam:->pl effusionShould this be performed [...] Zepeda Verified Date/Time: 06/16/2018 08:23:01 Reading Location: [facility] Radiology Reading Room [facility] [address] (HEMOGRAM ONLY)2018-06-16 05:37:00 Test Item Value Reference [...] = 413) RAD, CHEST, 1 VIEW, NON [id number] 12:25:00Reason for exam:->pl effusionShould this be performed [...] MDReport Verified Date/Time: 06/15/2018 12:25:59 Reading Location: [address] Transitional Reading Room [id number] 06:08:00 Test Item Value Reference Range Interpretation [...] = 413) CBC W/PLT COUNT & AUTO [id number] 11:45:00 Test Item Value Reference Range Interpretation [...] PLATELET CONCENTRATION Decreased (CELLAVISION)(BEAKER) (test code = 3437) Received comment: User comments: Slide comments:[id number] 06:12:00 Test Item Value Reference Range Interpretation Comments MAGNESIUM (BEAKER) (test code = 1.9 mg/dL 1.6-2.6 627) BASIC METABOLIC [id number] 06:12:00 Test Item Value Reference Range Interpretation [...] Specimen slightly ictericCBC W/PLT COUNT & AUTO [id number] 12:36:00 Test Item Value Reference Range Interpretation [...] = 3438) Received comment: User comments: Slide comments:[id number] 06:33:00 Test Item Value Reference Range Interpretation Comments MAGNESIUM (BEAKER) (test code = 1.8 mg/dL 1.6-2.6 627) BASIC METABOLIC [id number] 06:33:00 Test Item Value Reference Range Interpretation [...] PATIEN TS. RAD, CHEST, 1 VIEW, NON [id number] 04:27:00Reason for exam:->post-opShould this be performed at [...] MDReport Verified Date/Time: 06/13/2018 04:27:13 Reading Location: [facility] C013V Neuro Reading Room CBC W/PLT COUNT & AUTO [id number] 14:42:00 Test Item Value Reference Range Interpretation [...] MDReport Verified Date/Time: 06/12/2018 11:47:39 Reading Location: [facility] Radiology Reading Room BASIC METABOLIC [id number] 06:19:00 Test Item Value Reference Range Interpretation [...] PATIEN TS. RAD, CHEST, 1 VIEW, NON [id number] 09:05:00Reason for exam:->pl effusionShould this be performed at the bedside?->YesFINAL REPORT CLINICAL HISTORY: pl effusion TECHNIQUE: 1 view of the chest. [facility]: 06/10/2018 IMPRESSION: The right central line has been removed. Three chest tubes remain. There is no evidence of pneumothorax. There is bibasilar atelectasis. There is a trace right effusion. The cardiomediastinal silhouette is magnified by technique with sternotomy wires. Signed: Agatha Galvin MDReport Verified Date/Time: 06/11/2018 09:05:55 Reading Location: [facility] Reading Room [id number] 05:42:00 Test Item Value Reference Range Interpretation Comments MAGNESIUM (BEAKER) (test code = 1.9 mg/dL 1.6-2.6 627) BASIC METABOLIC [id number] 05:42:00 Test Item Value Reference Range Interpretation [...] CORPUSCULAR HEMOGLOBIN CONC 32.1 GM/DL 32.3-36.5 L ([facility]) (test code = 752) RED CELL DISTRIBUTION WIDTH 16.4 % 11.6-14.4 H ([facility]) (test code = 412) PLATELET COUNT ([facility]) (test code 77 K/CU MM 150-450 L = 756) MEAN PLATELET VOLUME ([facility]) 9.9 fL 9.4-12.4 (test code = 754) NUCLEATED RED BLOOD CELLS ([facility]) 0 /100 WBC 0-0 (test code = 413) POCT-GLUCOSE [id number] 19:48:00 Test Item Value Reference Range Interpretation Comments POC-GLUCOSE METER 157 mg/dL 70-110 H TESTED AT [place] [address] ([facility]) (test code = [facility] 1538) [address] POCT-GLUCOSE [id number] 19:48:00 Test Item Value Reference Range Interpretation Comments POC-GLUCOSE METER 128 mg/dL 70-110 H TESTED AT [place] [address] ([facility]) (test code = [facility] 1538) [address] HEMOGLOBIN AND [id number] 13:43:00 Test Item Value Reference Range Interpretation Comments HEMOGLOBIN ([facility]) (test code = 7.8 GM/DL 13.7-17.5 L 410) HEMATOCRIT ([facility]) (test code = 23.1 % 40.1-51.0 L 411) LACTIC ACID, ARTERIAL, WHOLE [id number] 09:11:00 Test Item Value Reference Range Interpretation Comments LACTATE BLOOD ARTERIAL (2) 1.4 mmol/L 0.5-2.2 ([facility]) (test code = 2874) OXYGEN SATURATION, [id number] 08:31:00 Test Item Value Reference Range Interpretation Comments O2 SATURATION (MEASURED) ([facility]) 70.9 % (test code = 1455) RAD, CHEST, 1 VIEW, NON [id number] 05:56:00while patient is intubated or has chest [...] Stable surgical changes.Additional findings: None. Signed: Jeanie Croona MDReport Verified Date/Time: 06/10/2018 05:56:50 Reading Location: [address] Transitional Reading Room [id number] 04:23:00 Test Item Value Reference Range Interpretation Comments PHOSPHORUS (BEAKER) (test code = 3.6 mg/dL 2.3-4.7 604) [id number] 04:23:00 Test Item Value Reference Range Interpretation Comments MAGNESIUM (BEAKER) (test code = 2.3 mg/dL 1.6-2.6 627) BASIC METABOLIC [id number] 04:23:00 Test Item Value Reference Range Interpretation [...] DIALYSIS PATIEN TS. LACTIC ACID, ARTERIAL, WHOLE [id number] 04:15:00 Test Item Value Reference Range Interpretation [...] 0-0 (test code = 413) BLOOD GAS, [id number] 22:21:00 Test Item Value Reference Range Interpretation [...] 1819) 36.0 % LACTIC ACID, ARTERIAL, WHOLE [id number] 21:36:00 Test Item Value Reference Range Interpretation Comments LACTATE BLOOD ARTERIAL (2) 1.6 mmol/L 0.5-2.2 (BEAKER) (test code = 2874) [id number] 21:36:00 Test Item Value Reference Range Interpretation Comments MAGNESIUM (BEAKER) (test code = 2.3 mg/dL 1.6-2.6 627) BLOOD GAS, [id number] 21:15:00 Test Item Value Reference Range Interpretation [...] (test code = 1819) 60.0 % GLUCOSE-STAT [id number] 21:15:00 Test Item Value Reference Range Interpretation Comments GLUCOSE RANDOM (BEAKER) (test code 149 mg/dL 70-110 H = 652) HGB/HCT (H&H) - STAT [id number] 21:15:00 Test Item Value Reference Range Interpretation [...] 0.0 % 0.0-5.0 code = 1414) CALCIUM, [id number] 18:48:00 Test Item Value Reference Range Interpretation Comments CALCIUM IONIZED (BEAKER) (test 1.16 mmol/L 1.12-1.27 code = 698) PH, BLOOD (BEAKER) (test code = 7.38 1810) BLOOD GAS, [id number] 18:48:00 Test Item Value Reference Range Interpretation [...] (test code = 1819) 100.0 % GLUCOSE-STAT [id number] 18:48:00 Test Item Value Reference Range Interpretation Comments GLUCOSE RANDOM (BEAKER) (test code 146 mg/dL 70-110 H = 652) HGB/HCT (H&H) - STAT [id number] 18:48:00 Test Item Value Reference Range Interpretation Comments HEMOGLOBIN (BEAKER) (test code = 9.2 g/dL 13.0-16.8 L 410) HEMATOCRIT (BEAKER) (test code = 27.0 % 40.0-50.0 L 411) SODIUM NA-STAT [id number] 18:47:00 Test Item Value Reference Range Interpretation Comments SODIUM (BEAKER) (test code = 381) 137 meq/L 135-148 POTASSIUM-STAT [id number] 18:47:00 Test Item Value Reference Range Interpretation Comments POTASSIUM (BEAKER) (test code = 4.1 meq/L 3.6-5.5 379) RAD, CHEST, 1 VIEW, NON [id number] 18:00:00Reason for exam:->sp cardiac surgery intubatedShould this [...] MDReport Verified Date/Time: 06/09/2018 18:00:13 Reading Location: [facility] [id number] Consult Reading Room [id number] 17:50:00 Test Item Value Reference Range Interpretation Comments POTASSIUM (BEAKER) (test code = 4.2 meq/L 3.5-5.1 379) [id number] 17:50:00 Test Item Value Reference Range Interpretation Comments MAGNESIUM (BEAKER) (test code = 2.1 mg/dL 1.6-2.6 627) [id number] 17:50:00 Test Item Value Reference Range Interpretation Comments GLUCOSE RANDOM (BEAKER) (test code 127 mg/dL 70-105 H = 652) BASIC METABOLIC [id number] 17:50:00 Test Item Value Reference Range Interpretation [...] DIALYSIS PATIEN TS. LACTIC ACID, ARTERIAL, WHOLE [id number] 17:47:00 Test Item Value Reference Range Interpretation Comments LACTATE BLOOD 1.3 mmol/L 0.5-2.2 Specimen sligh tly ARTERIAL (2) (BEAKER) hemoly zed (test code = 2874) [id number] 17:43:00 Test Item Value Reference Range Interpretation Comments PARTIAL THROMBOPLASTIN TIME 29.2 seconds 22.5-36.0 (BEAKER) (test code = 760) [id number] 17:43:00 Test Item Value Reference Range Interpretation Comments FIBRINOGEN LEVEL (BEAKER) (test 264 mg/dl 225-434 code = 658) PROTHROMBIN [id number] 17:42:00 Test Item Value Reference Range Interpretation [...] (BEAKER) (test code = 413) OXYGEN SATURATION, [id number] 17:28:00 Test Item Value Reference Range Interpretation Comments O2 SATURATION (MEASURED) (BEAKER) 80.0 % (test code = 1455) CALCIUM, [id number] 17:27:00 Test Item Value Reference Range Interpretation Comments CALCIUM IONIZED (BEAKER) (test 1.21 mmol/L 1.12-1.27 code = 698) PH, BLOOD (BEAKER) (test code = 7.37 1810) BLOOD GAS, [id number] 17:27:00 Test Item Value Reference Range Interpretation [...] (test code = 1819) 60.0 % GLUCOSE-STAT [id number] 17:27:00 Test Item Value Reference Range Interpretation Comments GLUCOSE RANDOM (BEAKER) (test code 126 mg/dL 70-110 H = 652) HGB/HCT (H&H) - STAT [id number] 17:27:00 Test Item Value Reference Range Interpretation Comments HEMOGLOBIN (BEAKER) (test code = 9.9 g/dL 13.0-16.8 L 410) HEMATOCRIT (BEAKER) (test code = 29.0 % 40.0-50.0 L 411) SODIUM NA-STAT [id number] 17:26:00 Test Item Value Reference Range Interpretation Comments SODIUM (BEAKER) (test code = 381) 138 meq/L 135-148 POTASSIUM-STAT [id number] 17:26:00 Test Item Value Reference Range Interpretation Comments POTASSIUM (BEAKER) (test code = 4.1 meq/L 3.6-5.5 379) [id number] 16:10:00 Test Item Value Reference Range Interpretation Comments ACTIVATED CLOTTING TIME 109 sec TEST ED AT [place] [address] ([facility]) (test code = [facility] [place] [address]) [address] [id number] 16:10:00 Test Item Value Reference Range Interpretation Comments ACTIVATED CLOTTING TIME 720 sec TEST ED AT [place] [address] ([facility]) (test code = [facility]) [id number] 16:10:00 Test Item Value Reference Range Interpretation Comments ACTIVATED CLOTTING TIME 824 sec TEST ED AT [place] [address] ([facility]) (test code = [facility] [place] 441) [address] [id number] 16:10:00 Test Item Value Reference Range Interpretation Comments ACTIVATED CLOTTING TIME 918 sec TEST ED AT [facility] 6720 (BEAKER) (test code = [facility] [place] 441) [address] SODIUM NA-STAT [id number] 15:34:00 Test Item Value Reference Range Interpretation Comments SODIUM (BEAKER) (test code = 381) 137 meq/L 135-148 POTASSIUM-STAT [id number] 15:34:00 Test Item Value Reference Range Interpretation Comments POTASSIUM (BEAKER) (test code = 4.4 meq/L 3.6-5.5 379) CALCIUM, [id number] 15:34:00 Test Item Value Reference Range Interpretation Comments CALCIUM IONIZED (BEAKER) (test 1.32 mmol/L 1.12-1.27 H code = 698) PH, BLOOD (BEAKER) (test code = 7.36 1810) BLOOD GAS, [id number] 15:34:00 Test Item Value Reference Range Interpretation [...] (test code = 1819) 100.0 % GLUCOSE-STAT [id number] 15:34:00 Test Item Value Reference Range Interpretation Comments GLUCOSE RANDOM (BEAKER) (test code 118 mg/dL 70-110 H = 652) HGB/HCT (H&H) - STAT [id number] 15:34:00 Test Item Value Reference Range Interpretation Comments HEMOGLOBIN (BEAKER) (test code = 9.5 g/dL 13.0-16.8 L 410) HEMATOCRIT (BEAKER) (test code = 28.0 % 40.0-50.0 L 411) [id number] 14:28:00 Test Item Value Reference Range Interpretation Comments PARTIAL THROMBOPLASTIN TIME 28.3 seconds 22.5-36.0 (BEAKER) (test code = 760) [id number] 14:28:00 Test Item Value Reference Range Interpretation Comments FIBRINOGEN LEVEL (BEAKER) (test 187 mg/dl 225-434 L code = 658) PROTHROMBIN [id number] 14:27:00 Test Item Value Reference Range Interpretation Comments PROTIME (BEAKER) (test code = 17.5 seconds 11.7-14.7 H 759) INR (BEAKER) (test code = 370) 1.4 <=5.9 RECOMMENDED COUMADIN/WARFARIN INR THERAPY RANGESSTANDARD DOSE: 2.0 - 3.0 Includes: PROPHYLAXIS forvenous thrombosis, systemic embolization; TREATMENT for venous thrombosis and/or pulmonary embolus.HIGH RISK: Target INR is 2.5-3.5 for patients with mechanical heart valves.PLATELET [id number] 14:17:00 Test Item Value Reference Range Interpretation Comments PLATELET COUNT (BEAKER) (test 127 K/CU MM 150-450 L code = 756) BLOOD GAS, [id number] 14:13:00 Test Item Value Reference Range Interpretation [...] code = 1819) 100.0 % SODIUM NA-STAT [id number] 14:13:00 Test Item Value Reference Range Interpretation Comments SODIUM (BEAKER) (test code = 381) 132 meq/L 135-148 L GLUCOSE-STAT [id number] 14:13:00 Test Item Value Reference Range Interpretation Comments GLUCOSE RANDOM (BEAKER) (test code 170 mg/dL 70-110 H = 652) HGB/HCT (H&H) - STAT [id number] 14:13:00 Test Item Value Reference Range Interpretation Comments HEMOGLOBIN (BEAKER) (test code = 8.5 g/dL 13.0-16.8 L 410) HEMATOCRIT (BEAKER) (test code = 25.0 % 40.0-50.0 L 411) CALCIUM, [id number] 14:12:00 Test Item Value Reference Range Interpretation Comments CALCIUM IONIZED (BEAKER) (test 1.17 mmol/L 1.12-1.27 code = 698) PH, BLOOD (BEAKER) (test code = 7.32 1810) POTASSIUM-STAT [id number] 14:11:00 Test Item Value Reference Range Interpretation Comments POTASSIUM (BEAKER) (test code = 5.1 meq/L 3.6-5.5 379) POTASSIUM-STAT [id number] 13:31:00 Test Item Value Reference Range Interpretation Comments POTASSIUM (BEAKER) (test code = 6.8 meq/L 3.6-5.5 HH 379) BLOOD GAS, [id number] 13:29:00 Test Item Value Reference Range Interpretation [...] code = 1819) 80.0 % SODIUM NA-STAT [id number] 13:29:00 Test Item Value Reference Range Interpretation Comments SODIUM (BEAKER) (test code = 381) 130 meq/L 135-148 L GLUCOSE-STAT [id number] 13:29:00 Test Item Value Reference Range Interpretation Comments GLUCOSE RANDOM (BEAKER) (test code 213 mg/dL 70-110 H = 652) HGB/HCT (H&H) - STAT [id number] 13:29:00 Test Item Value Reference Range Interpretation Comments HEMOGLOBIN (BEAKER) (test code = 7.8 g/dL 13.0-16.8 L 410) HEMATOCRIT (BEAKER) (test code = 23.0 % 40.0-50.0 L 411) BLOOD GAS, [id number] 13:07:00 Test Item Value Reference Range Interpretation [...] code = 1819) 80.0 % BLOOD GAS, [id number] 13:06:00 Test Item Value Reference Range Interpretation [...] code = 1819) 80.0 % SODIUM NA-STAT [id number] 13:06:00 Test Item Value Reference Range Interpretation Comments SODIUM (BEAKER) (test code = 381) 131 meq/L 135-148 L GLUCOSE-STAT [id number] 13:06:00 Test Item Value Reference Range Interpretation Comments GLUCOSE RANDOM (BEAKER) (test code 121 mg/dL 70-110 H = 652) HGB/HCT (H&H) - STAT [id number] 13:06:00 Test Item Value Reference Range Interpretation Comments HEMOGLOBIN (BEAKER) (test code = 7.9 g/dL 13.0-16.8 L 410) HEMATOCRIT (BEAKER) (test code = 23.0 % 40.0-50.0 L 411) POTASSIUM-STAT [id number] 13:05:00 Test Item Value Reference Range Interpretation Comments POTASSIUM (BEAKER) (test code = 4.2 meq/L 3.6-5.5 379) BLOOD GAS, [id number] 11:02:00 Test Item Value Reference Range Interpretation [...] 1819) 90.0 % HGB/HCT (H&H) - STAT [id number] 11:02:00 Test Item Value Reference Range Interpretation Comments HEMOGLOBIN (BEAKER) (test code = 10.7 g/dL 13.0-16.8 L 410) HEMATOCRIT (BEAKER) (test code = 31.0 % 40.0-50.0 L 411) GLUCOSE-STAT [id number] 11:01:00 Test Item Value Reference Range Interpretation Comments GLUCOSE RANDOM (BEAKER) (test code 104 mg/dL 70-110 = 652) SODIUM NA-STAT [id number] 11:01:00 Test Item Value Reference Range Interpretation Comments SODIUM (BEAKER) (test code = 381) 137 meq/L 135-148 POTASSIUM-STAT [id number] 11:01:00 Test Item Value Reference Range Interpretation Comments POTASSIUM (BEAKER) (test code = 3.6 meq/L 3.6-5.5 379) POCT-GLUCOSE [id number] 08:43:00 Test Item Value Reference Range Interpretation Comments POC-GLUCOSE METER 99 mg/dL 70-110 TESTED AT [facility] 6720 (BEAKER) (test code = [place] [address] 1538) HEMOGLOBIN [id number] 13:25:00 Test Item Value Reference Range Interpretation Comments HEMOGLOBIN A1C (BEAKER) (test code = 5.5 % 4.3-6.1 368) [id number] 12:54:00 Test Item Value Reference Range Interpretation Comments MAGNESIUM (BEAKER) (test code = 2.0 mg/dL 1.6-2.6 627) COMPREHENSIVE METABOLIC [id number] 12:54:00 Test Item Value Reference Range Interpretation [...] NOT APPLICABLE FOR DIALYSIS PATIEN TS. LIPID [id number] 12:54:00 Test Item Value Reference Range Interpretation [...] 100-129 Borderline 130-159 High 160-189 Very High [id number] 12:48:00 Test Item Value Reference Range Interpretation Comments PARTIAL THROMBOPLASTIN TIME 34.6 seconds 22.5-36.0 (BEAKER) (test code = 760) PROTHROMBIN TIME/[id number] 12:47:00 Test Item Value Reference Range Interpretation [...] = 2801) CBC W/PLT COUNT & AUTO [id number] 07:06:00 Test Item Value Reference Range Interpretation [...] K/uL 0.00-0.00 H (CELLAVISION)(BEAKER) (test code = 2858) TOTAL COUNTED (BEAKER) (test code = 100 1351) WBC MORPHOLOGY (BEAKER) (test code Normal = 487) PLT MORPHOLOGY (BEAKER) (test code Normal = 486) POLYCHROMATOPHILLIC RBCS(BEAKER) 1+ few (test code = 478) ARTIFACT (CELLAVISION)(BEAKER) Present (test code = 3432) PLATELET CONCENTRATION Decreased (CELLAVISION)(BEAKER) (test code = 3438) Received comment: User comments: Slide comments:[id number] 06:09:00 Test Item Value Reference Range Interpretation Comments MAGNESIUM (BEAKER) (test code = 2.2 mg/dL 1.6-2.6 627) BASIC METABOLIC [id number] 06:09:00 Test Item Value Reference Range Interpretation [...] 697) EGFR (BEAKER) (test 75 mL/min/1.73 ESTIMA RBE GFR IS code = 1092) sq m NOT ACCURATE CREATININE CLEARANCE IN PREDICTING GLOMERULAR FILTRATION RATE . ESTIMATED GFR I S NOT APPLICABLE FOR DIALYSIS PATIEN TS. POCT-GLUCOSE [id number] 10:41:00 Test Item Value Reference Range Interpretation Comments POC-GLUCOSE METER 135 mg/dL 70-110 H TESTED AT [facility] 6720 ([facility]) (test code = [facility] [place] 1538) [address] RAD, CHEST, 1 VIEW, NON [id number] 05:01:00Reason for exam:->excessive coughingFINAL REPORT RAD, CHEST, 1 VIEW, NON DEPT INDICATION: excessive coughing COMPARISON: Prior day's exam FINDINGS: Portable frontal view of the chest. IMPRESSION: Support Lines: Stable. Lungs and pleura: The lungs are clear. No pleural effusion. No pneumothorax.Heart and mediastinum: Stable contours. Additional findings: None. Signed: Jeanie Corona Verified Date/Time: 05/14/2018 05:01:57 Reading Location: [address] Transitional Reading Room CALCIUM, [id number] 04:16:00 Test Item Value Reference Range Interpretation Comments CALCIUM IONIZED (BEAKER) (test 1.11 mmol/L 1.12-1.27 L code = 698) PH, BLOOD (BEAKER) (test code = 7.40 1810) [id number] 04:16:00 Test Item Value Reference Range Interpretation Comments MAGNESIUM (BEAKER) (test code = 2.2 mg/dL 1.6-2.6 627) BASIC METABOLIC [id number] 04:16:00 Test Item Value Reference Range Interpretation [...] APPLICABLE FOR DIALYSIS PATIEN TS. BLOOD GAS, [id number] 04:15:00 Test Item Value Reference Range Interpretation [...] 21.0 % CBC W/PLT COUNT & AUTO [id number] 03:49:00 Test Item Value Reference Range Interpretation [...] (BEAKER) (test code = 2801) SODIUM NA-STAT [id number] 23:50:00 Test Item Value Reference Range Interpretation Comments SODIUM (BEAKER) (test code = 381) 140 meq/L 135-148 POTASSIUM-STAT [id number] 23:50:00 Test Item Value Reference Range Interpretation Comments POTASSIUM (BEAKER) (test code = 3.8 meq/L 3.6-5.5 379) BLOOD GAS, [id number] 23:50:00 Test Item Value Reference Range Interpretation [...] (test code = 1819) 21.0 % GLUCOSE-STAT [id number] 23:50:00 Test Item Value Reference Range Interpretation Comments GLUCOSE RANDOM (BEAKER) (test code 120 mg/dL 70-110 H = 652) HGB/HCT (H&H) - STAT [id number] 23:50:00 Test Item Value Reference Range Interpretation Comments HEMOGLOBIN (BEAKER) (test code = 10.2 g/dL 13.0-16.8 L 410) HEMATOCRIT (BEAKER) (test code = 30.0 % 40.0-50.0 L 411) RAD, CHEST, 1 VIEW, NON [id number] 22:51:00Reason for exam:->central line placementFINAL REPORT Chest, [...] Coronaeport Verified Date/Time: 05/13/2018 22:51:08 Reading Location: [address] Transitional Reading Room [id number] 19:40:00 Test Item Value Reference Range Interpretation Comments PHOSPHORUS (BEAKER) (test code = 3.0 mg/dL 2.3-4.7 604) [id number] 19:40:00 Test Item Value Reference Range Interpretation Comments MAGNESIUM (BEAKER) (test code = 1.6 mg/dL 1.6-2.6 627) BASIC METABOLIC [id number] 19:40:00 Test Item Value Reference Range Interpretation [...] APPLICABLE FOR DIALYSIS PATIEN TS. HEPATIC FUNCTION [id number] 19:40:00 Test Item Value Reference Range Interpretation [...] U/L 6-55 347) LACTIC ACID, ARTERIAL, WHOLE [id number] 19:36:00 Test Item Value Reference Range Interpretation Comments LACTATE BLOOD ARTERIAL (2) 1.2 mmol/L 0.5-2.2 (BEAKER) (test code = 2874) PROTHROMBIN [id number] 19:25:00 Test Item Value Reference Range Interpretation Comments PROTIME (BEAKER) (test code = 15.1 seconds 11.7-14.7 H 759) INR (BEAKER) (test code = 370) 1.2 <=5.9 RECOMMENDED COUMADIN/WARFARIN INR THERAPY RANGESSTANDARD DOSE: 2.0 - 3.0 Includes: PROPHYLAXIS forvenous thrombosis, systemic embolization; TREATMENT for venous thrombosis and/or pulmonary embolus.HIGH RISK: Target INR is 2.5-3.5 for patients with mechanical heart valves.PT/[id number] 19:25:00 Test Item Value Reference Range Interpretation [...] (BEAKER) (test code = 2801) BLOOD GAS, [id number] 19:12:00 Test Item Value Reference Range Interpretation [...] (test code = 1819) 33.0 % CALCIUM, [id number] 19:12:00 Test Item Value Reference Range Interpretation Comments CALCIUM IONIZED (BEAKER) (test 1.04 mmol/L 1.12-1.27 L code = 698) PH, BLOOD (BEAKER) (test code = 7.40 1810) GLUCOSE-STAT [id number] 19:12:00 Test Item Value Reference Range Interpretation Comments GLUCOSE RANDOM (BEAKER) (test code 135 mg/dL 70-110 H = 652) HGB/HCT (H&H) - STAT [id number] 19:12:00 Test Item Value Reference Range Interpretation Comments HEMOGLOBIN (BEAKER) (test code = 10.7 g/dL 13.0-16.8 L 410) HEMATOCRIT (BEAKER) (test code = 31.0 % 40.0-50.0 L 411) SODIUM NA-STAT [id number] 19:11:00 Test Item Value Reference Range Interpretation Comments SODIUM (BEAKER) (test code = 381) 137 meq/L 135-148 POTASSIUM-STAT [id number] 19:11:00 Test Item Value Reference Range Interpretation Comments POTASSIUM (BEAKER) (test code = 3.7 meq/L 3.6-5.5 379) [id number] 18:24:00 Test Item Value Reference Range Interpretation Comments ACTIVATED CLOTTING TIME 246 sec TEST ED AT [facility] 67[address] (BEAKER) (test code = [facility] [place] [address]) [address] [id number] 18:24:00 Test Item Value Reference Range Interpretation Comments ACTIVATED CLOTTING TIME 175 sec TEST ED AT [facility] 6720 (BEAKER) (test code = [facility] [place] 441) [address] BASIC METABOLIC [id number] 16:10:00 Test Item Value Reference Range Interpretation [...] S NOT APPLICABLE FOR DIALYSIS PATIEN TS. [id number] 16:04:00 Test Item Value Reference Range Interpretation Comments PARTIAL THROMBOPLASTIN TIME 34.2 seconds 22.5-36.0 (BEAKER) (test code = 760) PROTHROMBIN TIME/[id number] 16:03:00 Test Item Value Reference Range Interpretation [...] code = 2801) XR Chest 1 View [id number] 07:45:24Patient: JUDD Jr, ALIA Date/Time05/02/2018 07:40 CSTReason for ExamChest painReportHISTORY: Chest painLocation code: E37FLNL: CHEST X- RAY, ONE VIEWCOMPARISON: NoneCOMMENT: Frontal view of the chest is provided. Lungs are hyperinflated suggesting some COPD. No focal infiltrate, consolidation, mass lesion, or effusion is seen. Cardiac silhouette is within normal limits. No acute bony abnormalities.IMPRESSION: COPD. No acute infiltrate. Final Dictated by: Dionne Horn LDictated DT/TM: 05/02/2018 7:44 amSigned by: Dionne Horn LSigned (Electronic Signature): 05/02/2018 7:45 amLipid [id number] 19:23:00 Test Item Value Reference Range Interpretation Comments Cholesterol (test 148 mg/dL 0-200 N code = CHOL) Triglycerides (test 123 mg/dL 9-200 N code = TRIG) HDL (test code = 41 mg/dL 40-60 N HDL) Chol/HDL (test code 3.6 Ratio 0.0-5.0 N = CHOLPHDL) LDL, Calculated 82 mg/dL 0-130 N (NOTE)RISK O F HEART (test code = LDLC) DISEASEPu blished by [place] Heart AssociationAnal yte Optim al Boderline Increased RiskC HOL <200 200-239 >240TRI G <150 150-199 >200HDL Male: >60 <40HDL Female: >60 <50 LDL < 100 130-15 9 >160 LDL NEAR OPTIMAL IS 100- 129 VLDL (test code = 25 mg/dL 5-40 N VLDL) LDL/HDL (test code = 2 LDLPHDL)
--- NOTE | 2020-04-15 10:13 | ER ---
Nurse's Notes [facility] Name: Jt Ma Jr Age: 75 yrs Sex: Male : 1945 Arrival Date: 04/15/2020 Time: 07:22 Bed External Waiting Private MD: Diagnosis: Presentation: 04/15 07:33 Chief complaint: Patient states: had labs drawn with MD Dao yesterday and was told iw he needed a blood transfusion. Triage Assessment: 07:45 General: Appears in no apparent distress. comfortable, Behavior is calm, cooperative, bp appropriate for age. Pain: Denies pain. EENT: No deficits noted. Neuro: Level of Consciousness is awake, alert, obeys commands, Oriented to Appropriate for age. Cardiovascular: Rhythm is sinus rhythm. Respiratory: No deficits noted. GI: No signs and/or symptoms were reported involving the gastrointestinal system. : No signs and/or symptoms were reported regarding the genitourinary system. Derm: Skin is pale, Skin temperature is cool. Musculoskeletal: No deficits noted. Historical: - Allergies: 07:44 No Known Allergies; iw Screenin:45 Abuse screen: Denies threats or abuse. Denies injuries from another. Nutritional bp screening: No deficits noted. Tuberculosis screening: No symptoms or risk factors identified. Fall Risk None identified. Assessment: 07:45 General: Appears in no apparent distress. comfortable, Behavior is calm, cooperative, bp appropriate for age, SEE TRIAGE NOTE. 07:45 Reassessment: pt was to be seen as SDS patient for blood transfusion per Dr. Zavala.iw Vital Signs: 07:38 BP 113 / 55; Pulse 70; Resp 16 S; Temp 98.5; Pulse Ox 98% on R/A; iw ED Course: 07:22 Patient arrived in ED. ag5 07:45 Patient has correct armband on for positive identification. Bed in low position. Call bp light in reach. Side rails up X2. 07:46 Dexter Carlos, KENIA is Primary Nurse. bp 07:50 Inserted saline lock: 18 gauge in right upper arm, using aseptic technique. Blood bp collected. 08:13 Erickson Dao MD is Attending Physician. meagan Administered Medications: No medications were administered Outcome: 08:00 Eloped from patient exam room. iw 10:14 Patient left the ED. iw Signatures: Erickson Dao MD MD cha Williams, Irene, RN RN Dexter Sal RN RN Farideh Patton ag5
[2020-04-15 10:20] VITALS: BP 113/55; TEMP 98.5; O2SAT 98
== END 2020-04-15 10:14 | disposition left against medical advice (07) ==
LOC: ER 07:20
DX: Z02.89 Encounter for other administrative examinations (principal); Z53.21 Procedure and treatment not carried out due to patient leaving prior to being seen by health care provider
CPT/HCPCS: 99284

== ENCOUNTER 2020-04-15 08:30 | Day surgery (SDC) | payer OTHER, MEDICARE ==
--- OUTSIDE RECORDS SUMMARY | 2020-04-15 08:01 | XMS REPORT | Clinical Summary ---
:1945 Author Organization [facility] Address [address] [place] [address] Care Team Providers Name Role Phone Matthew [...] YRS Completed 11/06/2017 Implants Implanted Type Area Esters And Emulsifiers Supervisor Device Shelf Model / Identifier Expiration Serial / Date Lot Thuy Padillaid Full Strlprep 5ml [id number] - Sn/A Cement/[place] KING:BIOSCI 08/01/2019 [id number] / Implanted: Qty: 1 on 05/13/2018 at [facility] r/Adhesive N/A / [id number] Stent Excluder C3 23x14.5mmx16 [id number] - [id number] IMPLANTS N/A: BILL QUINONES & 02/11/2022 [id number] / Implanted: Qty: 1 on 04/09/2019 by Che Diego MD at [facility] Aorta ASSC:MED PRDT [id number] / Grft Excluder 14.5x14mm [id number] - [id number] IMPLANTS Left: Jaime QUINONES & 03/30/2021 [id number] / Implanted: Qty: 1 on 04/09/2019 by Che Diego MD at [facility] Iliac ASSC:MED PRDT [id number] / Patch Pericard Bovine 8x14cm Pc-[id number] - Sn/A Tissue Left: [employer] 10/10/2022 [id number] / Implanted: Qty: 1 on 05/13/2018 by Madison Lopez MD at [facility] Graft/Substi Neck TECH:SURG INNOV N/A / tute [id number] Patch Periph Vascu-Grd 0.8x8cm Vg-0108n - [id number] Tissue [employer] 02/18/2023 [id number] / Implanted: Qty: 1 on 09/24/2018 by Madison Lpoez MD at [facility] Graft/Substi TECH:SURG INNOV / tute [id number] Procedures Procedure Name Priority Date/Time Associated Diagnosis Comme nts VASCULAR DIAGRAM -SCAN 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 after 04/15/2019 Insurance Payer Benefit Plan / Subscriber ID Effective Dates Phone Addre ss Type Group MEDICARE MEDICARE A B [id number] 2011-Presen Medicare t MCR A[employer] [id number] 2017-Present Med[employer]ap SUPPLEMENT/[facility] Guarantor Name Account Type Relation to Date of Phone Billing Patient Address Jt Ma Jr. 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
--- OUTSIDE RECORDS SUMMARY | 2020-04-15 08:10 | XMS REPORT | Continuity of Care Document ---
:1945 Author Organization [facility] t Address [address] [place] [address] Care Team Providers Name Role Phone MARGARET [...] Attending Clinician Unavailable Lisseth GONZALEZ Attending Clinician Dxeter AQUINO, S Attending Clinician Unavailable Pawel CALIX Attending Clinician Shmuel AQUINO, G Attending Clinician Unavailable Adrien Escobar PharmD Attending Clinician Bayron Warner Attending Clinician Grace ALLERGY NURSE Attending Clinician Jayashree LAU, S Attending Clinician [...] Policy Number Effective Date Expiration Date S [facility] PART A [id number] 2011 AND B 00:00:00 [employer]-SECONDARY [id number] 2019 ONLY 00:00:00 Problems Condition Condition Condition [...] [facility] History SDSD [facility] - [facility] Binge [facility] [...] Take 1 MD (VANTIN) 06-30 ession tablet Harodlo o 200 mg 00:00: 05:59 (200 mg) [...] 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 Take on days 1-7 in combinatio n with Cedazudrid ine. No food 2 hours before and 2 hours after dose. 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 Take 1 MD 025) 02-03 [facility] tablet Anderso cedazuridin 00:00: 04:59 syndrome [...] LEVEL 2020-03-31 12:24:00 Amarilys Montanez MD [facility] ASPARTATE AMINOTRANSFERASE 2020-03-31 12:24:00 Agustina [...] 2020-03-03 18:23:00 MD Feliberto Blackwell DIFFERENTIAL June ID DIAGNOSTIC BONE MARROW 2020-03-03 15:30:00 Leonela Montanez [...] LEVEL 2020-03-03 12:18:00 Amarilys Montanez MD [facility] ALKALINE PHOSPHATASE 2020-03-03 12:18:00 Amarilys Montanez MD ALANINE AMINOTRANSFERASE 2020-03-03 12:18:00 Amarilys Montanez MD ASPARTATE AMINOTRANSFERASE 2020-03-03 12:18:00 Agustina Montanez MD TOTAL PROTEIN 2020-03-03 12:18:00 Amarilys Montanez MD [facility] FRACTIONATED BILIRUBIN 2020-03-03 12:18:00 Amarilys Montanez ABORH 2020-03-03 12:18:00 Amarilys Montanez MD [facility] Results CBC 2020-03-03 12:18:00 Amarilys Montanez MD [facility] ANTIBODY SCREEN 2020-03-03 12:18:00 Amarilys Montanez MD [facility] MANUAL DIFFERENTIAL 2020-03-03 12:18:00 Amarilys Montanez MD nderson URINALYSIS MICROSCOPIC 2020-03-03 12:18:00 Amarilys Montanez TMP INTERPRETATION ANTIBODY 2020-03-03 12:18:00 Tomas Montanez MD SCREEN NEGATIVE CLOT EXPIRATION DATE 2020-03-03 12:18:00 Amarilys Montanez MD TYPE AND SCREEN 2020-02-04 15:16:00 Amarilys Montanez MD [facility] COMPLETE BLOOD COUNT W/ 2020-02-04 15:16:00 Amarilys Montanez MD DIFFERENTIAL TOTAL PROTEIN 2020-02-04 15:16:00 Amarilys Montanez MD [facility] ALBUMIN LEVEL 2020-02-04 15:16:00 Amarilys [...] ACID 2020-02-04 15:16:00 Amarilys Montanez MD [facility] FRACTIONATED BILIRUBIN 2020-02-04 15:16:00 Amarilys Montanez ALKALINE PHOSPHATASE 2020-02-04 15:16:00 Amarilys Montanez MD LACTATE DEHYDROGENASE 2020-02-04 15:16:00 Amarilys Montanez MD ALANINE AMINOTRANSFERASE 2020-02-04 15:16:00 Amarilys Montanez MD ELECTROLYTE PANEL 2020-02-04 15:16:00 Amarilys Montanez MD And erson MAGNESIUM LEVEL 2020-02-04 15:16:00 [facility] ASPARTATE AMINOTRANSFERASE 2020-02-04 15:16:00 Agustina Montanez MD GAMMA GLUTAMYL TRANSFERASE 2020-02-04 15:16:00 Agustina Montanez MD URINALYSIS WITH MICROSCOPIC 2020-02-04 15:16:00 Tomas Montanez MD IF INDICATED ABORH 2020-02-04 15:16:00 [facility]ys [facility] ANTIBODY SCREEN 2020-02-04 15:16:00 Am[facility]ilys [facility] Results CBC 2020-02-04 15:16:00 Am[facility]ilys [facility] MANUAL DIFFERENTIAL 2020-02-04 15:16:00 Amarilys [...] PROTEIN 2020-02-01 11:50:00 Amarilys Montanez MD [facility] ALBUMIN LEVEL 2020-02-01 11:50:00 Amarilys Montanez MD [facility] CALCIUM LEVEL TOTAL 2020-02-01 11:50:00 Amarilys Montanez MD nderson PHOSPHORUS LEVEL 2020-02-01 11:50:00 Amarilys Montanez MD Duc rson GLUCOSE, RANDOM 2020-02-01 11:50:00 Amarilys Montanez MD [facility] BLOOD UREA NITROGEN 2020-02-01 11:50:00 Amarilys Montanez MD nderson SERUM CREATININE 2020-02-01 11:50:00 Amarilys Montanez MD Duc rson URIC ACID 2020-02-01 11:50:00 Amarilys [facility] FRACTIONATED BILIRUBIN 2020-02-01 11:50:00 Amarilys Montanez ALKALINE PHOSPHATASE 2020-02-01 11:50:00 Amarilys Montanez MD LACTATE DEHYDROGENASE 2020-02-01 11:50:00 Amarilys Montanez MD ALANINE AMINOTRANSFERASE 2020-02-01 11:50:00 Amarilys Montanez MD ELECTROLYTE PANEL 2020-02-01 11:50:00 Amarilys Montanez MD And erson MAGNESIUM LEVEL 2020-02-01 11:50:00 Amarilys Montanez MD [facility] ABORH 2020-02-01 11:50:00 Am[facility]ilys [facility] ANTIBODY SCREEN 2020-02-01 11:50:00 Amarilys [facility]z [facility] Results CBC 2020-02-01 11:50:00 Amarilys [facility]z [facility] MANUAL DIFFERENTIAL 2020-02-01 11:50:00 Amarilys Montanez MD nderson SERUM CREATININE 2020-02-01 11:50:00 Amarilys Montanez MD [facility] .GLOMERULAR FILTRATION RATE 2020-02-01 11:50:00 Tomas Montanez MD TMP INTERPRETATION ANTIBODY 2020-02-01 11:50:00 Tomas Montanez MD SCREEN NEGATIVE CLOT EXPIRATION DATE 2020-02-01 11:50:00 Amarilys Montanez MD TYPE AND SCREEN 2020-01-27 12:33:00 Amarilys Montanez MD [facility] COMPLETE BLOOD COUNT W/ 2020-01-27 12:33:00 Amarilys Montanez MD DIFFERENTIAL TOTAL PROTEIN 2020-01-27 12:33:00 Amarilys Montanez MD [facility] ALBUMIN LEVEL 2020-01-27 12:33:00 Amarilys [facility] CALCIUM LEVEL TOTAL 2020-01-27 12:33:00 Amarilys Montanez MD nderson PHOSPHORUS LEVEL 2020-01-27 12:33:00 Amarilys Montanez MD Duc [facility] GLUCOSE, RANDOM 2020-01-27 12:33:00 Amarilys Montanez MD [facility] BLOOD UREA NITROGEN 2020-01-27 12:33:00 Amarilys Montanez MD nderson SERUM CREATININE 2020-01-27 12:33:00 Amarilys Montanez MD Duc [facility] URIC ACID 2020-01-27 12:33:00 Amarilys [facility] FRACTIONATED BILIRUBIN 2020-01-27 12:33:00 Amarilys Montanez ALKALINE PHOSPHATASE 2020-01-27 12:33:00 Amarilys Montanez MD LACTATE DEHYDROGENASE 2020-01-27 12:33:00 Amarilys Montanez MD ALANINE AMINOTRANSFERASE 2020-01-27 12:33:00 Amarilys Montanez MD ELECTROLYTE PANEL 2020-01-27 12:33:00 Amarilys Montanez MD And erson MAGNESIUM LEVEL 2020-01-27 12:33:00 Amarilys Montanez MD [facility] ABORH 2020-01-27 12:33:00 Amarilys [facility] ANTIBODY SCREEN 2020-01-27 12:33:00 Amarilys Montanez MD [facility] Results CBC 2020-01-27 12:33:00 Amarilys Montanez MD [facility] MANUAL DIFFERENTIAL 2020-01-27 12:33:00 Amarilys Montanez MD nderson SERUM CREATININE 2020-01-27 12:33:00 Amarilys Montanez MD [facility] .GLOMERULAR FILTRATION RATE 2020-01-27 12:33:00 Tomas Montanez MD CLOT EXPIRATION DATE 2020-01-27 12:33:00 Amairlys Montanez MD TMP INTERPRETATION ANTIBODY 2020-01-27 12:33:00 [...] LEVEL TOTAL 2020-01-21 12:29: Mervat Mercer [facility] PHOSPHORUS LEVEL 2020-01-21 12::00 Mervat Mercer MD GLUCOSE, RANDOM 2020-01-21 12:: Mervat Mercer MD BLOOD UREA NITROGEN 2020-01-21 12:29:00 Mervat [facility]cer [facility] SERUM CREATININE 2020-01-21 12:29:00 Mervat [...] URIC ACID 2020-01-18 11:49:00 Amarilys Montanez MD [facility] FRACTIONATED BILIRUBIN 2020-01-18 11:49:00 Amarilys Montanez [...] CBC 2020-01-18 11:49:00 Amarilys Montanez MD [facility] MANUAL DIFFERENTIAL 2020-01-18 11:49:00 Amarilys Montanez MD nderson ABORH 2020-01-18 11:49:00 Amarilys Montanez MD [facility] ANTIBODY SCREEN 2020-01-18 11:49:00 Amarilys [facility]z [facility] TMP INTERPRETATION ANTIBODY 2020-01-18 11:49:00 Tomas Montanez MD SCREEN NEGATIVE CLOT EXPIRATION DATE 2020-01-18 11:49:00 Amarilys Montanez MD TYPE AND SCREEN 2020-01-14 12:41:00 Amarilys Montanez MD [facility] COMPLETE BLOOD COUNT W/ 2020-01-14 12:41:00 Amarilys Montanez MD DIFFERENTIAL TOTAL PROTEIN 2020-01-14 12:41:00 Amarilys Montanez MD [facility] ALBUMIN LEVEL 2020-01-14 12:41:00 Amarilys Montanez MD [facility] CALCIUM LEVEL TOTAL 2020-01-14 12:41:00 Amarilys Montanez MD nderson PHOSPHORUS LEVEL 2020-01-14 12:41:00 Amarilys Montanez MD [facility] GLUCOSE, RANDOM 2020-01-14 12:41:00 Amarilys Montanez MD [facility] BLOOD UREA NITROGEN 2020-01-14 12:41:00 [...] MAGNESIUM LEVEL 2020-01-14 12:41:00 Amarilys [facility]z [facility] ABORH 2020-01-14 12:41:00 Amarilys [facility]anez [facility] ANTIBODY SCREEN 2020-01-14 12:41:00 Amarilys Montanez MD [facility] Results CBC 2020-01-14 12:41:00 Amarilys Montanez [facility] MANUAL DIFFERENTIAL 2020-01-14 12:41:00 Amarilys Montanez MD nderson SERUM CREATININE 2020-01-14 12:41:00 Amarilys Montanez MD [facility] .GLOMERULAR FILTRATION RATE 2020-01-14 12:41:00 Tomas Montanez MD CLOT EXPIRATION DATE 2020-01-14 12:41:00 Amarilys Montanez MD TMP INTERPRETATION ANTIBODY 2020-01-14 12:41:00 Tomas Montanez MD SCREEN NEGATIVE TYPE AND SCREEN 2020-01-11 13:31:00 Amarilys [facility] COMPLETE BLOOD COUNT W/ 2020-01-11 13:31:00 Amarilys Montanez MD DIFFERENTIAL TOTAL PROTEIN 2020-01-11 13:31:00 Amarilys [facility]z [facility] ALBUMIN LEVEL 2020-01-11 13:31:00 Amarilys [facility]anez MD [facility] CALCIUM LEVEL TOTAL 2020-01-11 13:31:00 Amarilys Montnaez MD nderson PHOSPHORUS LEVEL 2020-01-11 13:31:00 Amarilys Montanez MD [facility] GLUCOSE, RANDOM 2020-01-11 13:31:00 Amarilys [facility]z [facility] BLOOD UREA NITROGEN 2020-01-11 13:31:00 [...] son ABORH 2020-01-11 13:31:00 Amarilys [facility]z [facility] ANTIBODY SCREEN 2020-01-11 13:31:00 Amarilys Montanez MD [facility] Results CBC 2020-01-11 13:31:00 Amarilys [facility]anez MD [facility] MANUAL DIFFERENTIAL 2020-01-11 13:31:00 Amarilys [...] PROTEIN 2020-01-07 12:44:00 Amarilys Montanez MD [facility] ALBUMIN LEVEL 2020-01-07 12:44:00 Amarilys Montanez MD [facility] CALCIUM LEVEL TOTAL 2020-01-07 12:44:00 Amarilys Montanez MD nderson PHOSPHORUS LEVEL 2020-01-07 12:44:00 Amarilys Montanez MD [facility] GLUCOSE, RANDOM 2020-01-07 12:44:00 Amarilys Montanez MD [facility] BLOOD UREA NITROGEN 2020-01-07 12:44:00 Amarilys Montanez MD nderson SERUM CREATININE 2020-01-07 12:44:00 Amarilys Montanez MD [facility] URIC ACID 2020-01-07 12:44:00 Amarilys [facility]z [facility] FRACTIONATED BILIRUBIN 2020-01-07 12:44:00 Amarilys Montanez ALKALINE PHOSPHATASE 2020-01-07 12:44:00 Amarilys Montnaez MD LACTATE DEHYDROGENASE 2020-01-07 12:44:00 Amarilys Montanez MD ALANINE AMINOTRANSFERASE 2020-01-07 12:44:00 Amarilys Motnanez MD ELECTROLYTE PANEL 2020-01-07 12:44:00 Amarilys Montanez MD And erson MAGNESIUM LEVEL 2020-01-07 12:44:00 Amarilys Montanez MD [facility] GLUCOSE LEVEL 2020-01-07 12:44:00 MD [...] MD [facility] ANTIBODY SCREEN 2020-01-07 12:44:00 Amarilsy Montanez MD [facility] Results CBC 2020-01-07 [...] PROTEIN 2019-12-24 17:43:00 Amarilys Montanez MD [facility] ALBUMIN LEVEL 2019-12-24 17:43:00 [...] 2019-12-14 20:22:00 MD Feliberto Blackwell INTERPRETATION June ID DIAGNOSTIC BONE MARROW 2019-12-14 19:00:00 Leonela Montanez [...] URIC ACID 2019-12-14 14:46:00 Amarilys [facility] FRACTIONATED BILIRUBIN 2019-12-14 14:46:00 Amarilys Montanez ALKALINE PHOSPHATASE 2019-12-14 14:46:00 Amarilys Montanez MD LACTATE DEHYDROGENASE 2019-12-14 14:46:00 Amarilys Montanez MD ALANINE AMINOTRANSFERASE 2019-12-14 14:46:00 Amarilys Montanez MD ELECTROLYTE PANEL 2019-12-14 14:46:00 Amarilys Montanez MD And erson MAGNESIUM LEVEL 2019-12-14 14:46:00 Am[facility]ilys [facility] PERIPHERAL SMEAR FOR BONE 2019-12-14 14:46:00 Leonela Montanez MD MARROW ABORH 2019-12-14 14:46:00 Amarilys [facility]z [facility] ANTIBODY SCREEN 2019-12-14 14:46:00 Amarilys [facility]anez MD [facility] Results CBC 2019-12-14 14:46:00 Amarilys [facility]z [facility] MANUAL DIFFERENTIAL 2019-12-14 14:46:00 Amarilys Montanez MD nderson SERUM CREATININE 2019-12-14 14:46:00 Amarilys Montanez MD [facility] .GLOMERULAR FILTRATION RATE 2019-12-14 14:46:00 Tomas Montanez MD CLOT EXPIRATION DATE 2019-12-14 14:46:00 Amarilys Montanez MD TMP INTERPRETATION ANTIBODY 2019-12-14 14:46:00 Tomas Montanez MD SCREEN NEGATIVE TOTAL PROTEIN 2019-12-10 16:26:00 Amarilys Montanez MD [facility] ALBUMIN LEVEL 2019-12-10 16:26:00 Amarilys [facility]z [facility] CALCIUM LEVEL TOTAL 2019-12-10 16:26:00 [...] PRO BNP 2019-12-10 16:26:00 Amarilys [facility] TYPE AND SCREEN 2019-12-10 16:26:00 Amarilys Montanez MD [facility] HEPATITIS B CORE ANTIBODY 2019-12-10 [...] 2019-12-10 16:26:00 Amarilys Montanez MD And erson [id number] SERUM CREATININE 2019-12-10 16:26:00 Amarilys Montanez MD [...] Provider, Yari [facility] Plan of Care Planned Activity Planned Date Details Comments Source Future Scheduled 2020-02-[address] [facility] - Test 00:00:00 (#1) [code = [facility] INFLUENZA VACCINE (#1)] Future Scheduled 2012-03-[address] [facility] 00:[facility]:00 WELLNESS (YEAR [facility] or [facility] Center FIRST YEAR if no IPPE) [code = MEDICARE ANNUAL WELLNESS (YEAR 2 or FIRST YEAR if no IPPE)] Future Scheduled [address] [facility] 00:00:00 malignant neoplasm Medical C enter of colon (procedure) [code = 163779326] Encounters Start End Encounter Admission Attending Care Care Encounter Source Date/Time Date/Time Type Type Clinicians Facility Department ID 2020-02-15 Outpatient SYSTEM, CARLOS GONZALEZ [id number] 11:42:17 FABRIZIO apple 2020-01-04 Outpatient CARLOS GONZALEZ [id number] 15:51:33 Chavez apple 2019-12-22 Outpatient MELBA ZAMORA MDA MDA [id number] 11:07:13 RAFALE apple 2019-11-26 Outpatient SYSTEM, CARLOS GONZALEZ [id number] 12:31:31 PROVIDER Haroldo apple 2020-04-14 2020-04-14 Outpatient EL VALENTE GONZALEZ MDA [id number] 11:50:34 13:50:14 Haroldo PRUITT 2020-04-14 2020-04-14 Outpatient MELBA BOLAÑOSESECARLOS MDA [id number] 11:49:38 11:49:38 MERVAT apple 2020-03-31 2020-03-31 Outpatient MELBA MONTANEZ MDA MDA [id number] 07:14:23 23:59:00 AMARILYS whalen n 2020-03-31 2020-03-31 Outpatient EL MAY MDA MDA [id number] 07:36:38 07:36:38 Haroldo PRUITT JUNE n 2020-03-03 2020-03-03 Outpatient MELBA MONTANEZ, MDA MDA [id number] 10:30:00 23:59:00 AMARILYS [place] so zechariah 2020-03-03 2020-03-03 Outpatient EL MAY MDA MDA [id number] 07:25:25 11:54:16 Haroldo PRUITT JUNE n 2020-03-03 2020-03-03 Outpatient MELBA MONTANEZ, MDA MDA [id number] 07:11:53 10:29:00 AMARILYS apple 2020-03-03 2020-03-03 Outpatient EL MAY MDA MDA [id number] 07:33:17 07:33:17 Haroldo PRUITT JUNE n 2020-02-15 2020-02-15 Outpatient EL MAY MDA MDA [id number] 00:00:00 00:00:00 Haroldo PRUITT JUNE n 2020-02-15 2020-02-15 Outpatient EL MAY MDA MDA [id number] 00:00:00 00:00:00 Haroldo PURITT JUNE n 2020-02-11 2020-02-11 Outpatient EL MAY MDA MDA [id number] 00:00:00 00:00:00 Haroldo PRUITT JUNE n 2020-02-11 2020-02-11 Outpatient EL MAY MDA MDA [id number] 00:00:00 00:00:00 Haroldo PRUITT JUNE n 2020-02-04 2020-02-04 Outpatient EL MAY MDA MDA [id number] 07:30:00 23:59:00 Haroldo PRUITT JUNE n 2020-02-04 2020-02-04 Outpatient EL MAY MDA MDA [id number] 13:01:22 13:01:22 Haroldo PRUITT JUNE n 2020-02-04 2020-02-04 Outpatient EL MAY MDA MDA [id number] MD 09:47:29 11:23:48 Haroldo PRUITT JUNE n 2020-02-04 2020-02-04 Outpatient EL MAY MDA MDA [id number] 00:00:00 00:00:00 Haroldo PRUITT JUNE n 2020-02-01 2020-02-01 Outpatient EL SALVATORA, MDA MDA [id number] MD 06:44:58 23:59:00 AMARILYS [place] so n 2020-02-01 2020-02-01 Outpatient EL SALVATORA, MDA MDA [id number] MD 06:44:46 06:44:46 AMARILYS [place] so n 2020-02-01 2020-02-01 Outpatient EL MAY MDA MDA [id number] 00:00:00 00:00:00 Haroldo PRUITT 2020-02-01 2020-02-01 Outpatient EL MAY MDA MDA [id number] 00:00:00 00:00:00 Haroldo PRUITT 2020-01-29 2020-01-29 Outpatient EL MAY MDA MDA [id number] 00:00:00 00:00:00 Haroldo PRUITT JUNE n 2020-01-28 2020-01-28 Outpatient EL MAY MDA MDA [id number] 00:00:00 00:00:00 Haroldo PRUITT JUNE n 2020-01-28 2020-01-28 Outpatient EL MAY MDA MDA [id number] 00:00:00 00:00:00 Haroldo PRUITT JUNE n 2020-01-28 2020-01-28 Outpatient EL MAY MDA MDA [id number] 00:00:00 00:00:00 Haroldo PRUITT JUNE n 2020-01-27 2020-01-27 Outpatient EL SALVATORA, MDA MDA [id number] MD 07:21:52 23:59:00 AMARILYS [place] so n 2020-01-27 2020-01-27 Outpatient EL SALVATORA, MDA MDA [id number] 07:38:46 07:38:46 AMARILYS [place] so n 2020-01-27 2020-01-27 Outpatient EL MAY MDA MDA [id number] 07:21:31 07:21:31 Haroldo PRUITT JUNE n 2020-01-26 2020-01-26 Outpatient EL MAY MDA MDA [id number] 06:51:19 23:59:00 Haroldo PRUITT JUNE n 2020-01-25 2020-01-25 [facility] MDA [id number] 06:39:14 23:59:00 AMARILYS [place] so n 2020-01-25 2020-01-25 [facility] MDA [id number] 06:39:01 06:39:01 AMARILYS [place] so n 2020-01-25 2020-01-25 Outpatient EL MAY MDA MDA [id number] 00:00:00 00:00:00 Haroldo PRUITT JUNE n 2020-01-25 2020-01-25 [facility] [id number] 00:00:00 00:00:00 Haroldo PRUITT JUNE n 2020-01-21 2020-01-21 [facility] [id number] MD 07:24:30 23:59:00 MERVAT wylie n 2020-01-21 2020-01-21 [facility] MDA [id number] MD 07:43:33 07:43:33 MERVAT apple 2020-01-21 2020-01-21 [facility] [id number] MD 07:24:47 07:24:47 Haroldo PRUITT JUNE n 2020-01-21 2020-01-21 [facility] [id number] 00:00:00 00:00:00 Haroldo PRUITT JUNE n 2020-01-21 2020-01-21 Outpatient EL MAY MDA MDA [id number] 00:00:00 00:00:00 Haroldo PRUITT JUNE n 2020-01-18 2020-01-18 [facility] MDA [id number] 06:44:06 23:59:00 AMARILYS [place] so n 2020-01-18 2020-01-18 [facility] MDA [id number] 06:43:55 06:43:55 AMARILYS [place] so n 2020-01-18 2020-01-18 Outpatient EL MAY MDA MDA [id number] 00:00:00 00:00:00 Haroldo PRUITT JUNE n 2020-01-18 2020-01-18 Outpatient EL MAY MDA MDA [id number] 00:00:00 00:00:00 Haroldo PRUITT JUNE n 2020-01-14 2020-01-14 Outpatient EL MAY MDA MDA [id number] 07:12:49 23:59:00 Haroldo PRUITT JUNE n 2020-01-14 2020-01-14 Outpatient EL MAY MDA MDA [id number] 08:48:08 08:48:08 Haroldo PRUITT JUNE n 2020-01-14 2020-01-14 Outpatient EL MAY MDA MDA [id number] 07:42:35 07:42:35 Haroldo PRUITT JUNE n 2020-01-14 2020-01-14 Outpatient EL MAY MDA MDA [id number] 07:12:35 07:12:35 Haroldo PRUITT JUNE n 2020-01-13 2020-01-13 Outpatient EL MAY MDA MDA [id number] 07:05:08 23:59:00 Haroldo PRUITT JUNE n 2020-01-13 2020-01-13 [facility] [id number] 07:32:19 07:32:19 Haroldo PRUITT JUNE n 2020-01-11 2020-01-11 Outpatient [facility], MDA MDA [id number] 10:02:52 13:20:01 GREG wylie n 2020-01-11 2020-01-11 [facility] MDA [id number] 08:57:34 09:48:53 AMARILYS apple 2020-01-11 2020-01-11 [facility] [id number] 08:31:21 08:49:52 AMARILYS apple 2020-01-11 2020-01-11 Outpatient EL MAY MDA MDA [id number] 00:00:00 00:00:00 Haroldo PRUITT JUNE n 2020-01-11 2020-01-11 Outpatient [facility] MDA MDA [id number] 00:00:00 00:00:00 Haroldo PRUITT JUNE n 2020-01-08 2020-01-08 Outpatient [facility] MDA MDA [id number] 07:16:35 07:16:35 Hraoldo PRUITT JUNE n 2020-01-07 2020-01-07 Outpatient [facility], MDA MDA [id number] 07:27:22 23:59:00 AMARILYS [place] zechariah 2020-01-07 2020-01-07 Outpatient [facility] MDA MDA [id number] 08:53:53 08:53:53 Haroldo PRUITT JUNE n 2020-01-07 2020-01-07 Outpatient [facility], MDA MDA [id number] 08:05:30 08:05:30 AMARILYS [place] so n 2020-01-07 2020-01-07 Outpatient [facility] MDA MDA [id number] 07:26:26 07:26:26 Haroldo PRUITT JUNE n 2020-01-07 2020-01-07 Outpatient [facility] MDA MDA [id number] 07:15:00 07:26:00 Haroldo PRUITT JUNE n 2020-01-07 2020-01-07 Outpatient [facility] MDA MDA [id number] 06:52:32 07:14:00 Haroldo PRUITT JUNE n 2020-01-05 2020-01-05 Outpatient [facility] MDA MDA [id number] 07:37:32 23:59:00 Haroldo PRUITT JUNE n 2020-01-05 2020-01-05 [facility] [id number] 07:37:48 07:37:48 Haroldo PRUITT JUNE n 2020-01-05 2020-01-05 [facility] [id number] 07:01:56 07:36:00 Haroldo PRUITT JUNE n 2020-01-04 2020-01-04 Outpatient [facility], MDA MDA [id number] 12:55:40 23:59:00 AMARILYS [place] so zechariah 2020-01-04 2020-01-04 Outpatient EL MAY MDA MDA [id number] 13:20:42 13:20:42 Haroldo PRUITT JUNE n 2019-12-29 2019-12-29 Outpatient [facility], MDA MDA [id number] 06:48:03 23:59:00 AMARILYS Alvareser so n 2019-12-29 2019-12-29 Outpatient EL MAY MDA MDA [id number] 07:43:41 07:43:41 Haroldo PRUITT JUNE n 2019-12-29 2019-12-29 Outpatient [facility], MDA MDA [id number] 00:00:00 00:00:00 AMARILYS [place] so n 2019-12-29 2019-12-29 Outpatient EL MAY MDA MDA [id number] 00:00:00 00:00:00 Haroldo PRUITT JUNE n 2019-12-24 2019-12-24 Outpatient [facility], MDA MDA [id number] 16:25:48 23:59:00 AMARILYS Alvareser so n 2019-12-24 2019-12-24 Outpatient EL MAY MDA MDA [id number] 12:50:38 16:58:36 Haroldo PRUITT JUNE n 2019-12-24 2019-12-24 Outpatient [facility], MDA MDA [id number] 12:27:52 16:24:00 AMARILYS Alvareser so n 2019-12-23 2019-12-23 Outpatient [facility] MDA MDA [id number] 07:26:00 23:59:00 Haroldo ANAND SERINA n 2019-12-14 2019-12-14 Outpatient [facility], MDA MDA [id number] 14:00:00 23:59:00 AMARILYS [place] so n 2019-12-14 2019-12-14 Outpatient EL [facility], MDA MDA [id number] MD 11:46:16 13:59:00 EDGAR mayen n 2019-12-14 2019-12-14 Outpatient EL MAY MDA MDA [id number] 11:51:42 11:51:42 Haroldo PRUITT JUNE n 2019-12-14 2019-12-14 Outpatient MELBA PENG, MDA MDA [id number] 10:03:00 11:45:00 Carolina apple 2019-12-14 2019-12-14 Outpatient MELBA MONTANEZ, MDA MDA [id number] 09:25:53 10:02:00 AMARILYS apple 2019-12-14 2019-12-14 Outpatient MELBA MONTANEZ MDA MDA [id number] 09:26:08 09:26:08 AMARILYS apple 2019-12-10 2019-12-10 Outpatient MELBA MONTANEZ, MDA MDA [id number] 11:12:14 23:59:00 AMARILYS apple 2019-12-10 2019-12-10 Outpatient MAY MDA MDA [id number] MD 09:31:49 15:36:51 Haroldo PRUITT 2019-12-10 2019-12-10 Outpatient MAY MDA MDA [id number] 09:31:21 09:31:21 Haroldo PRUITT 2019-12-10 2019-12-10 Outpatient MDA MDA [id number] 09:11:05 09:11:05 Haroldo apple 2019-12-10 2019-12-10 Outpatient MELBA MONTANEZ, MDA MDA [id number] 00:00:00 00:00:00 AMARILYS apple 2019-12-08 2019-12-08 Outpatient VALENTE MDA MDA [id number] 06:55:55 06:55:55 Haroldo PRUITT 2019-12-08 2019-12-08 Outpatient MAY MDA MDA [id number] 00:00:00 00:00:00 Haroldo PRUITT 2017-04-24 2017-04-24 [facility] [id number] 292 . 18:23:00 18:23:00 [facility] Results Test Description Test Time Test Comments Results Result Comments Source TMP Interpretation Antibody Screen Negative 2020-04-15 02:02 :55 Test Item Value Reference Range Interpretation Comme nts TMP Auto At the present MADINA Neg ABSC time, patient NAVDEEP PEPPER MD - [id number] by: MADINA PEPPER MD - [place] [id number] d Date/Time: 04.14.2020 20:02 PM BARGAIN TABLE CLERK (test evidence of RBC Transcribed Date/Time: 04.14.2020 20:02 PM code = alloantibodies. CSTElectroni galileo Signed By: MD Frank SNELL [id number] on 7535) 04.14.2020 20:0 2 PM MD DaoTMP Interpretation Ehdpgjidho5888-70-36 02:02:54 Test Item Value Reference Range Interpretation Comments TMP XM Interp RBC units (test code = crossmatched for 7566) transfusion appear NAHUM PEPPER MD acceptable. - [id number] by: MD Frank SNELL [id number] Date/Time: 04.03 20:02 PM BARGAIN TABLE CLERK Transcribed Ian e/Time: 04.14.2020 20:0 2 PM CSTElectronical ly Signed By: MD Frank PELAYO [id number] on 04.14.2020 20:0 2 PM MD aDoQwxhtkmuImxlcrrfjadp0409-89-14 22:34:31 Test Item Value Reference Range Interpretation [...] PLT Morph (test code = Normal Normal 69383-6) Anisocytosis (test code Present Not Present A = 4811) Poik (test code = 6840) Present Not Present A Tear Drop (test code = Present Not Present A 7602) Macrocyte (test code = Present Not Present A 6358) Lab Interpretation Abnormal (test code = 81674-0) MD Dao.LTH2978-59-94 22:34:28 Test Item Value Reference Range Interpretation [...] (test code = 64.6 fL 35.1-46.3 H 77436-3) RDW-CV (test code = 17.8 % 12-15.5 [...] differential. Lab Interpretation Abnormal (test code = 95509-7) MD DaoPrepare RBC:atc main, 1 Npaqi3120-87-34 20:57:15 Test Item Value Reference Range Interpretation Comments PRBC Product 1 Red Blood Cells Ready (test code Available - Order = 69662-8) Form 03 when re caitlyn for product iss ue. GUILLAUME (test code = Does the Patient GUILLAUME) have a Current Signed Informed Consent for Blood Component Transfusion?->Yes MD DaoOyfkjgcjRTZLa6085-06-96 20:35:01 Test Item Value Reference Range Interpretation Comments ABORh. (test code = 882-1) A POS MD DaoClot Expiration Pvsu7401-68-33 20:34:30 Test Item Value Reference Range Interpretation Comments T & S Expiration (test code = 04/17/2020 5318) MD DaoAntibody Mtxcin2416-28-44 20:32:05 Test Item Value Reference Range Interpretation Comments ABSC. (test code = 890-4) Negative ABSC MD DaoUrinalysis with Hzepxyaimnw5192-28-84 19:57:33 Test Item Value Reference Range Interpretation [...] implementation of new instrumentation in the [facility] [place], allowing greater sensitivity of measurement. Urinalysis results reported by the [facility] using existing instrumentation, as well as Urinalysis testing performed manually or by backup methodology at the [facility] [place] will remain relatively unchanged. New reporting parameters and units will now be reported for all campuses. MD DaoUrinalysis w/Microscopic if Jkrvekqht1364-51-07 19:55:14 Test Item Value Reference Range Interpretation [...] NEG Lab Interpretation (test code = Abnormal 39435-3) MD DaoFractionated Bxkrggksv2461-21-79 19:02:32 Test Item Value Reference Range Interpretation [...] outside rep ortable range MD DaoGlomerular Filtration Edac0966-95-96 19:02:30 Test Item Value Reference Range Interpretation [...] sed GFR 15-295 Kidney failure <15 MD DaoSfivtkauOSD7560-17-97 19:02:29 Test Item Value Reference Range Interpretation [...] conjunction wit h clinical context. MD DaoAlkaline Qcuynhcoimq3902-69-94 19:02:28 Test Item Value Reference Range Interpretation Comments Alk Phos (test code = 4768) 86 U/L 40-129 MD DaoAlbumin Fhufs1854-43-32 19:02:27 Test Item Value Reference Range Interpretation Comments Albumin Lvl (test code = 4763) 4.1 3.5- 5.2 gm/dL MD DaoAspartate Guitxqlezyiyujxr2669-63-85 19:02:25 Test Item Value Reference Range Interpretation Comments AST (test code = 4731) 19 U/L <=40 MD DaoGlucose, Wyjfax0674-09-98 19:02:24 Test Item Value Reference Range Interpretation Comments Glucose Random (test 121 mg/dL 70-199 Effecti ve 12/28/15, the code = 9360) glucose referen ce intervals have been updated based o n [place] [employer] [place] (Standards of [...] with increased risk for diabetes MD DaoElectrolyte Lujxc6905-72-83 19:02:23 Test Item Value Reference Range Interpretation Comments Sodium Lvl (test code = 7355) 137 136- 145 mEq/L Potassium Lvl (test code = 6854) 4.4 3.5- 5.1 mEq/L Chloride (test code = 5279) 104 98- 107 mEq/L CO2 (test code = 5227) 24 22- 29 mEq/L Anion Gap (test code = 9325) 9 4- 14 mEq/L MD DaoUric Twth1772-64-52 19:02:22 Test Item Value Reference Range Interpretation Comments Uric Acid (test code = 7955) 4.8 mg/dL 3.4-7 MD Dao.Serum Rqyidxhsps4796-88-06 19:02:21 Test Item Value Reference Range Interpretation Comments Creatinine (test code = 5399) 1.13 mg/dL 0.67-1.17 MD DaoTotal Rioudko1653-44-71 19:02:20 Test Item Value Reference Range Interpretation Comments Total Protein (test code = 7649) 6.6 g/dL 6.4-8.3 MD DaoPhosphorus Bewkp3893-10-78 19:02:19 Test Item Value Reference Range Interpretation Comments Phosphorus (test code = 6817) 3.4 mg/dL 2.5-4.5 MD DaoTqncsqrsPGE1077-58-80 19:02:18 Test Item Value Reference Range Interpretation Comments GGT (test code = 5647) 22 U/L 8-61 MD DaoCalcium Zzkmh9888-41-31 19:02:16 Test Item Value Reference Range Interpretation Comments Calcium Lvl (test code = 5258) 8.9 mg/dL 8.4-10.2 WarrenAlanine Yqubkatyqwxrpmex5403-67-46 19:02:15 Test Item Value Reference Range Interpretation Comments ALT (test code = 4705) 9 U/L <=41 [facility] Jlhck5378-68-00 19:02:14 Test Item Value Reference Range Interpretation Comments Magnesium (test code = 6359) 1.9 mg/dL 1.6-2.6 [facility] CenterViwpusqsLNX9169-52-51 19:02:13 Test Item Value Reference Range Interpretation Comments BUN (test code = 5055) 13 mg/dL 6-23 [facility] CenterHematopathology Bone Marrow Cvyfhgaeenqa5442-90-48 15:44:00 Test Item Value Reference Range Interpretation [...] may have been completed by a medical data entry clerk and is subject to change. Any pathologist updates will be included on interpretation and appear in the final result. Please use caution in evaluating your patient based on preliminary results. Lab Interpretation Abnormal (test code = 27773-7) MD DaoHematopathology Bone Marrow Yritvawhcfgmbn7559-41-56 15:43:00 Test Item Value Reference Range Interpretation Comments Diagnosis (test code = 34) q0gxxXFkYWPbdRE4JQA oRKEur3iyg8LysILxlS SwIVzqkBYwzuVyag18o HF7vS80VV9zCGUjOwK8 HEKwcpH0Fmb5QDMqFPX bmBSbS545o6dky8vpaj CauJC2bPfnEJSoMMndO VxyaTFcbGluMVxwbGFp blxmczIwIEJvbmUgbWF rev87XXKaw1H3ONNlb7 VfuMujYTZhV6Xwp4EhB OYsi3SddErcU5ajqOCv JTC6vA5rDUXqh9IyhaE 0ZSBzbWVhcnMsIGFuZC X4d2MalQVftbIlKCTgs NnuouqssXVeFD6mqXRp SE1pwzf+HB4duza+XH5 cflx+SO0ecpWFITIAZD BYDG6OPXSWEp6PWJClP WtMWV9NM88GE3pDSJJm FRFRM8FTWFQxWHKkFII TJMZFElNYToVOK1TCGb FURSBTTUVBUlMgKHNlZ QWeo03gSP03TY3anEJn fQ== Comment (test code = 9835) j7wgfFInNUMttIR5WJZ vOMOup6aik7UfbKUbeS EnWVlxoKTbccCxbn05v BL0rV47KY6kECKnZsL3 DHEoozJ0Vdg5PSFuISW hnQKyU519z2dfv7cenc AnwPD7PLGuKKE0BXupd wHbmhN1EFbexKDaSkC2 W69wjEBrBUoudUDhybb nucLuVGDmV9XoHSHyHX BlciBjbGluaWNhbCBub 3RlcywgdGhlIHBhdGll xhSypKExIJN7EnC3ybL hNHvzAJdfcGoqP01DLI wgYmVpbmcgdHJlYXRlZ OJ2xRAnHPI0OVFfsBwf hG6fBRFgMYWkYOSjvvZ yaWRpbmUuXHBhclxwYX WxzAlfYQFiKNgrlA1oQ ZDuN5TdCYVrOEUqjaCs aXJ4qN4aICwszRylNP3 ooLqsRYN8KJD2wZC9II Iyu1TasKZldSGsroFyk 00gAK8nPRBdQu6uLZLu rNNzUVIlDQL3RDz5MPF ej96aRGNjyt9= Microscopic Description j8dbhSNeWZDleFV0BKV (test code = 9865) hDFGxm1jzh9HpmNSeiD TwOXeiiIVahgRjic21u ND1xE93JW5kHFZuMeI9 RDOgxlO8Kti0YULhQLF epIRpN106r8mrh5inwp KkjWD2NNFbOKJjO2TyE V0lPMKmrMDzHHT7CGIk ZDIyOVxncmVlbjIyOVx qiKDcGmB0Y36gmYSdKU xsaTFccmkxXGxpbjFcc SqgyZ5tDyjvciYtUHRd FGcfjZGasWK2HwJMHVK UAJjGHxTYXYZDV94IEZ x+Y55IIPZxuAItNNAfK GFkDDggvGOnaXJ8QNr+ XHBhciBSQkNzOiBcflx +WX2mvtu+LJ5shfd+XH 5cflx+ME6sYMHeji2mu LTeUltzrr4uzB3fhHHr kBtmDNChQO3iFZrzp9c 0aCBtaWxkIGFuaXNvcG 4pa1zad3P6iM7cqOMbI HBhciBXQkNzOiBcflx+ ZZ7ndnd+IR1yfid+XH5 cflx+ULVcPUC1FJNhRI mvwVkcGPJhf7f5kSVgi U8wr9P0fW5yrXNxSG4z SFMlxxD4wOC9gZ3aZVP nZWG4nfFpplNrp0Ejjd 6lKTWmegVLqIL4KBhcc HM6IFx+IG8vvjy+XH5c flx+IW6kFLgpr50bg2J 4eI0vXJ0jPP0qtLRmGX 3hzKHaVUSpD5TyBIEpF 2JwYXQyIEJPTkUgTUFS Vj4PHWGYT0VotKGnGFW vFXPjPJntwQVcjHE8ZD x+UVGtozSDuUHlxHQ8G lx+DP8bgvs+HN6rfvj+ CQ4hneh+NX8vxaq+XH5 cflx+JM5gnrz+XH5cfl x+ZF2lSZLoaDMvrCTtR HBhciBDZWxsdWxhcml0 eTpcflx+HX8lgdb+XH5 cflx+ZT0eptv+XH5cfl x+QX5enxv+GK9jlkW4N TWjXW6qibh+BW4fpaAu flxwYXIgTWVnYWthcnl dC1b1UBP2VEo+XH5cfl x+VA0amee+DB7pTJPij HJaxCR9VFC8x5BlAQK4 nBYsXVmgFPVyQJ8fvCt 0ufW4OQyuirr+XH5cfl x+AL3bnrf+LP5rxwp+X H5cflx+DS8wkcq+XH5c flx+LC4pcsWTe8PgwSQ vuuAfHzgrPM1luKJlVC 7bzXNyNGRwA1CdNXNkV 2JwYXQyIEJPTkUgTUFS Dd1JMEHIUQFAZb3UJ4M LWKKVTaAVB8ugLAJdTy QxI0IyVBBhX2ThCQBsZ V7viGSuTSL5LQqvgDm5 IFx+PJ5lfbs+WO7fuwk +HH0cdbt+PD3jdfg+XH 5cflx+VH5rdte+XH5cf wThbyPSMVXsvMX2FS9v aXYhVXeaMG97sK9kaEO lczpcflx+RB3fqwh+XH 5cflx+SI6vrrk+XH5cf lx+IFNlcXVlbnRpYWwg kCL1wPJzuNkbxcbwWVa sdJtcx2WbOx0ymDBiAU EjvPLmtb0mgORybmjyx lx+XS3karf+EQ3ksce+ IQ9uomt+XA5kxbg+XH4 rQ2MebEDkeBebdOWbDK A8qeD7eW3aAbGotMNqh GFzdGljLlxwYXIgTWVn AAojdxbvK8i8TXU5CW2 cflx+CN5gywz+XH5cfl x+WQPsL4PwUMRxRP1bw KHkLGt2jAMof7O4wQVf Olx+SG5azoz+RY8mkmz +JX4jfuf+CJ1hcfo+XH 6jPh15FDusJ8PdUQSaL E7ymXWtXUMgRNAiQAQz LZbnomdcKY9oeic+XH5 cflx+DP4bvhy+XH5cfl x+BL1qksRUx5VlbZ8ok oJco8JrGzpoZWPaXdyd b5KhDgFoqfr+ND5vdyc +LV6kygo+UR8oseg+XH 5cflx+XB2qnwo+XH5cf lx+CJ1khbe+MC3eJi65 NRjfK4CdMOKqDU4ziRM yfQ== Gross Description (test m2cryMZsMBWlj6dzRFF code = [id number]) tEkUjJMVEc3hsu463bK HfLZzuOvIcWnH6iTOaV UUzxIQhs0M5JVimoWZe NwACwzmbzMm8r3itD7i ojz2tQB1yQnRlLUNvUP QwXGZwcnEyIFRpbWVzI F2icuKGh94xzmq9f2yk MJuemF8rNBDjUYBekSD kw9E2VQvtuWXaYNPEl7 CfdFJcVY0qswz5l2wjS Kmil4viu0XoZoXmMBAn ZXQwXGZwcnEyIEFyaWF fKX2qngUwuso2k7xsGJ AnXx4oOMWieortG7wlp uRotIArIbXxcPZhP855 jtetasl5l7gjJSLcIt2 olXexE0ilhiCbvLLsJd BycTIgVHJveSBNaWNyb jUzyUY4wZwyQfWrJZZv s46havafU2zwcySblSV aJrCfzMMhP6ntMd1xK6 64EDQaOCylp6krf2CcG mNoYXJzZXQwXGZwcnEy TFLrM54zEGOZD663ZGW kPOEzIQYmc8jkg0tuR8 hhcnNldDBcZnBycTIgQ FMcEVr9sE8Xn8hzv6ay gqOgpTQ2FFYhRXZyJ2L sKF6hZNWhnIWaD1buJH RhOIovryQhswI3MWToa HRrMJaicfAuZuDrI3Fj JL2tSWmpoNCpIkN1LTT mLCQ4OKxrPSCxLIpcBt p1OYG3C9cwKSZ2D7dwv xIamdBnPVVjxUG7Rpzj mlOtIqjlS8VyMY77CGe qfBSgEms1VAPlUWn3OP anYCUmIEUeBcp8FEi2P 4vuZMVwPFPeO1QwMH1w HUAwWbp8YUHlUYsusxF oQDY7OQkqRCEuPMX4AZ DgfFQvMub4NSPhJPI5G 3httqSrmoK9K5taeYWg PQWmD2fdRKSdVZphR5D dFR3gMTpoTyq5IVL2ZD zawfFqMDd3NCxlTGPvW Ft4FTKevYFcLuC6GOXk LYA4GFwcvmQdotL2YTc umYIpRWtiI3dlYGKjJC kcM4SrFO9rJOugKsb6C TIwNztccmVkMjIzXGdy ZWVuMjIzXGJsdWUyMjM 7XHJlZDIzOVxncmVlbj NlKKmncQAhLgQ0P9vbR BBeYSUvC6VxMQ0xKLXl Vpq2SGC9PIyqkcBqFWe dgmPwixSrPwq5HBX7BI a4Aggxt3G6rVQlnSIkz HtcczEgaGVhZGluZyAx Q193MXXzXRbeLXBiblk wWld3w3lsCfIbRPKxoC 0hLPA0jMcfycHkoPFsO SvjPbP7Y712FDE0HIyb MWHbjzowTUh7v7xxVcE gNKUubY8hYIU5bL0KUd hxQUVgfbujDGc9REibT ZZsofaqOvF7CPvqHIXb ySb5MDcgNPSsofZ2Our tYXJndDcyMFxtYXJnYj teMRxnDGBcNIJ7RoTxA XBsr8Lkcao3WcXqAsPs CGGYFgiltETrMXT3QDL 0ZjFcZXBpYzkxMDFcYW 8uoBwdzSw5qMyoONCqh wS3vSBjFVzqx1zjUWZ1 y7lhfihuOPKiMWuxPg9 udHRibHtcZjAgQXJpYW y9yG24WRDbnK3wqVAbH Pv3UBSyumRumZgxkV2e ZnMyMCBCLiBJbGlhYyB DcmVzdCwgTGVmdCBQb3 T1RMTcq0UcWHOeh8Qaz PQaYUWvaJRxo0gzprU3 BQNbByN0JYYvlXGcYDU tCVTrruXOvMGofK8vjw BpcyBlbnRpcmVseSBzd YZyvLI4TGRycY0xDJWt rY9arw3ptFCrOCZrm9U gW4FtkVTxjXZynEAdP2 JccHJvdGVjdDAgXHBsY WluXGZzMjBccGFyfVxw CFQ1Ws0= Disclaimer (test code = z9aynDCiKJOpfEHrUnD 9844) fVIMtKLDjs3qwDPCrdP FuZzEwMzNcZnRuYmpcd CXmAQZrHnTfl1izj310 mZTie5lnDTIxIrQ6eSA zKLMwuSPhV672GYVlCW mxj5trq8PhFQOyeWEru 0J7LXHHnpcqxPb2wIpf V30vg8S1ZppyX3txBCZ cIDUpN8EoRO4zDZZcIs n4RTP0KHE3CKRsIZKlG 3JxZQ6eLGXsuDItZFt7 v9ghzLmyVIBpRFM8w7f iUEyenzXrQC2pft5hwF n0l1qvxrNqPVGvRNFmi TEZLBJsB9MarKxzZc0z dGb7wAmoVbikGXR0Eda 1XH3etd91edu3dHehTT RdicmvIgC8UWjhKRHke lacIUx3MRmaMRMbrZO3 XNMdhDKbZ6IqBAJtNH7 vvrz9QCT9NDtkXTUjTp S6GSIvvMEyQYFiwMfiK Qdyu286VUE6OzGiFR3o A0Hzk0M5kA1nbCIhIMT viYMdUkMfKZGvkq5zwD GoFVuzz3CvJNH8xeX8r AUijGIaJBSyQB40Bbwo g8LeFjkrBTY3FDQqdbF rk9Yhm2ovGgPyqwUnO4 etL9OvWPIkJGIhHZQoM kCuqoEte7Lmo6QjiKGu xCb4m6leUXJtQCWugUf xz8evRXW6YVRkV7D8mN Qwb9dkGBlcURBuaXX0d nL9BOOtdURkC4RdgL4u FMByFB2shzw5u9ehRBW 5JBocTRCyLbU9djQ5KX BcaGVhZGVyeTcyMFxmb 522JIN3YuFnKDSfr6Up J9UkiJdkG03bcYtuV29 gXNUprAqbeQ9asCvgeF 5cZjBcZnMyNFxxbFxwb GSuawhkRKeyqxT6DArh ixgvAHHgGUaoW2bdRcV tLZYbhAioYVmxd1DcRJ YbRZUbKliqsrE9EPNNm 68bUCAir7CvEALroE5m zWSlWOkdvlBfqYM1JWg hdmUgYmVlbiBkZXZlbG 9hXANmOL4jHIOxrgOet m4lbxVvDIZdUXIfF3Mi cmlzdGljcyBkZXRlcm1 xivBnTBA2LOXUZD7WST FhRLLgn82rPIKhyFvuw J1lqSQvmvOjFWLqb6Zd kP7nsDVKJCLrI1jtPQ2 sWJdiw5ZtzDOqlBBfuD B7QMAiv3YnXqGpcrEha VHwoDXqF2NgvNhcC8qc EGGfCOCiwcAgxCWdv3Z eUYKxbEZ2rUBmIS0XUr TOx12aOONxORIFzrSuH QHtcMywsVW7sgL4yQ9a LiBJZiBhcHBsaWNhYmx wLCMqj310xm9cikE8ZH EaCDXdpxxgc6HzXOZkT DHuiR54ANXfXIQhxa2i vpjhxHKhulFdD3Ytsgt 2nJ8sCDKgXEirQDSdKB ZzMjJcbGFuZzEwMzNca GljaFxmMVxkYmNoXGYx MDbtW3xyXsSbQqDsXlb wYXJ9 MD DaoCytogenetics Specimen Collection -Bone Abpmgj8696-09-51 19:53:30 Test Item Value Reference Range Interpretation Comments Ken Ruiz (test [id number] code = 37972) Cytogenetics Yes (Received) (test code = 8304) GUILLAUME (test code = GUILLAUME) Please schedule in the morning. Thank youPremedication type:->NoneAspiration laterality:->UnilateralP rocedure type:->AspirateProcedure type:->Clot MD DaoBondolores marrow jkyesoumiz2262-70-69 15:30:00hBavik Armas NP 03/03/2020 1:32 PM Procedure: Bone marrow aspiration Date/Time: 03/03/2020 1:15 PMProvider Information:Performed by: Bhavik Armas NPAuthorized by: LISA Griffith Tufting Machine Fixer present: yesAssistant: Daiana DarlingMediilya tube bender used?: tube bender not needed Patient Diagnosis:Pre-procedure diagnosis: CMMLPost- procedure diagnosis: unchanged Indication:Indication: evaluation of disease status Anesthesia:Anesthesia: local infiltrationPatient anesthetized by: advanced practice providerLocal anesthetic: lidocaine 1% without epinephrineAnesthetic total (ml): 10 Sedation:Patient sedated?: patient not sedated Aspirate Site(s):Laterality: leftSite location: posterior iliac junaid tInstrument(s) used: [place] needleInstruments placed by: advanced practice provider Dressing:Dressing: compression bandage Post-Procedure Patient Assessment:Patient tolerance: wellEstimated blood loss: minimalComplications/Observations: no complications Discharge/Disposition:Discharge instructions: verbalPatient discharged to: discharge to homeDisposition mode: ambulatory Sample Disposition:Testing performed: flow cytometry, cytogenetics and pathologyResearch samples(s): yesProtocol #: Yik30-901 [facility] Aspirate volume obtained (mL) - left: 19Visual [...] were observed immediately after the procedure.MD DaoGlucose Tvfhe8660-54-49 13:09:56 Test Item Value Reference Range Interpretation Comments Glucose Level 98 mg/dL 70-99 Reference rang e is (test code = valid for fasti ng 5699) specimens only. Guidelines established by the [employer] [employer] guidelines (Standards of Medical [...] nitrogen (BUN). MD DaoPeripheral Smear for Bone Aofqrs9869-40-79 12:43:13 Test Item Value Reference Range Interpretation Comments Peripheral Smear (test code = 4273) PSMEAR MD DaoGeneral Laboratory Add-On Tozk2764-27-84 00:17:18 Test Item Value Reference Range Interpretation Comments Ordered (test code = 6568) Test Added Test Needed (test code = 7604) GGT MD DaoPathology Outside Zkniirhtsjcswj0168-58-79 15:40:00 Test Item Value Reference Range Interpretation Comments Materials Received (test l4nuoZHxIPEkoWCjQyGy code = 9973) RBCzFXZzt5yyNFThnMOr ZzEwMzNcZnRuYmpcdWMx PKDaAmBqe6pao907wCSp w3eoQKWmIaL9bHQbBNMf vLJaH753ZJByLIltt6cb h6LbTZNouOIvc3X7WQZG ctoelMu6xHleV68ko5C5 FxgmH0wgETWqNFYsN5Xt GP6xUYBpQhp3MCZ2PXZ3 ZKDoLTKkM8YwVZ9bUFZe qEYlFCh1n4tjtKjbPFYo EZS9c5etMHpiofIySX3c hi6wiGw0l8bobrLkUBNe RDPogGVMMKZaC2HwoQpe Lo3fdBy1nIyeFqttNEE9 Ucp4AS9fnc88jhp4hXht KXPjiiadPiP8HLrkOJGc focqYBf2HNjqTFIafQrv MFxtYXJncjcyMFxtYXJn iSL3UMKkhVZbL7IdQNLp HZqmTOOfcns3BtRrYb1j qQKyfVzeXSbbt7wkl5fd vZAnVqh1NRNmEvBaOhzs XWmlh2Llh6klIQHrpj8k QAP8qIUcmKfor8T3cEVb CBJvaSCptiAiELUxhk63 aUZvzKVnmPKyun6vskCq hEKwnSMeHGQ4oOTjfzMn HKKayEJjSUZuLJ8uvLLg QEUahT7beigxELDhKjNe sllfFZCyxLcjvgToOp3j rQaoYPL0RMnkZ4msdL9l CsX5LZtsN4tigO9iMUy2 TNefmMW2PKPmmQ8uIT7d hdjdw6hlRjUtFK5mnffz o6ihLtHqQF0kvos3w7jr GYP7WOsuLHYpMuU8yaG9 NDBcaGVhZGVyeTcyMFxm u047WMU2UhYeAHQlb5Fl B2VwdEtmV00szWkeH70k GTKuqFsbeD9pgFqsvW7u RlOnYrRpGSw5wy05LPv0 xuqtdGgmQZm1avGlWSKy ATP4DQZzqDLmSKCsZ0r3 ipCgDJMwKJN3PAPmaPQf FAYyU8a0rtHaEZN9LFo4 cnBhZGRmdDNcdHJwYWRk YjBcdHJwYWRkZmIzXHRy pFOopLFeuCNjeO1naAej OEEtsLBxlZ8qPTN1ZBJl cmgzMjBcdHJoZHJcbHRy ls48AMLxfyQodGCtzClf oXScMCL4MEYtVTIvOXVl TAI9GNEbVwXwxyVzIXfl bGJyZHJiXGJyZHJzXGJy QUK6OZQeGuYztsSyLJtk bGJyZHJsXGJyZHJzXGJy QHC6YQQnCfKbakBoPCeu bGJyZHJyXGJyZHJzXGJy PGC2SYFcJeLhivVcHKex bHBhZHQxMFxjbHBhZGZ0 I7mwkSFgTPAkDUmwkYTw NDAeM5maeKXxKEwtYHCt cGFkZmwzXGNscGFkYjBc X6ucAUVsAiKnW1WbvWf6 MDAwXGNsdmVydGFsdFxj uVRmFNW0LVIoJVQbAIZn RGH3XPQjJdUxdfEkBIug bGJyZHJiXGJyZHJzXGJy PSD6JAXaEcPwuwLhDNfi bGJyZHJsXGJyZHJzXGJy LBY6FNMhUoYyfyPpLJky bGJyZHJyXGJyZHJzXGJy PYP9YZAlQeQcyuVdPYzk bHBhZHQxMFxjbHBhZGZ0 N4gwfYHrLRHwVLsbvUKm PHUkD4ohnJTuDOmlTFOo cGFkZmwzXGNscGFkYjBc T2ysQLZbHrWyP5LbrYt9 NjAwXGNsdmVydGFsdFxj wHIlHMF4UDBrFAAoXLEc GKA4EELdSjMcgpNtWGtl bGJyZHJiXGJyZHJzXGJy EAM7JOLaBnSgnlHlCCfu bGJyZHJsXGJyZHJzXGJy PSJ8RQXbYlQabqPhOKpo bGJyZHJyXGJyZHJzXGJy HXN3JSPbRcZeozIjDQkg bHBhZHQxMFxjbHBhZGZ0 S8agoLHcKLKxPLoweAPv ZLQgA2heaRCjEBzyHQOu cGFkZmwzXGNscGFkYjBc B4ezMAMpLgFvA2WbnXa2 VnAnMYJtlpFeqF84Jpvb e3XfOTKrKLN7ULzaKAul bFxwbGFpblxmMVxmczIw JEcqszfvNCMdEYihO8tq MgPxCZCvhZuoIAmwl6Co XGYxXGNmMlxmczIwXGIg GEKbNTBsgT8oSkkuQ4Bk gI1zBRzeKgjqT3daRZIn w3FvgY8qTZaxeWSozftk MVxmczIwXGxhbmcxMDMz ZNezJ1gmGuQyIDOfyUtk CIoxa6IpIFBbSWDrCxtq ypHzMJp9vtXuORMmrEjx sCAuTTbakxLhfHwil6Ri mnLtpStaYOOmYWc9fwEc qojeaHa0zYSpdCmlSVVh nYohcK9yKbErMsCkUHfq bGFpblxmMVxmczIwXGxh efcrCCAcBYugF5fzFsUd TFDviGpmIUeim6RxZPKl NWNcQlkyhgFrTAWnG68o bGVjdGVkXHBsYWluXGYx XGZzMjBcbGFuZzEwMzNc aGljaFxmMVxkYmNoXGYx EIatY9gbQpVpZ8RaCMZu VqLmmTEvP9xsJ8KnlUvc YXJkXGludGJsXHNzcGFy QUF6tBBtitXqpQXhaAMs FYMdNZkvBUM9dXHnlmgu zJBaemceJTydkvP5OYXj YWluXGYxXGZzMjBcbGFu ZzEwMzNcaGljaFxmMVxk MmCoMIOdSXlfG4vpKvSz L8IaDIJfCwEfWyIRJAGa aXZlZFxwbGFpblxmMVxm czIwXGxhbmcxMDMzXGhp N9wzXrGkCAXfjZxtNDbv h4JtMHNkCFKcTlsdfxNq IMf6qfLpIBXtdZmzlS24 Pgyyeb27AKKpa7arUYZf H9VchPUtNFObwMBfZZdu MDhcdHJwYWRkZmwzXHRy cGFkZHIxMDhcdHJwYWRk ZnIzXHRycGFkZHQwXHRy cHCpVIO5W8k8hpNqYAOj ZWl1qeWcLLCoJlJvnQHn FCK8GBn4RrjkvxA6cIBd X1a2GtuyqfBxTYjniFGo qg35ATWwvaKstOHanCvv vVUmNVT8VXTxKCDcFQXm MTN9YIZeQwFgclWjRYgq bGJyZHJiXGJyZHJzXGJy ODC4PMMuQpXcdbOiFEbi bGJyZHJsXGJyZHJzXGJy PTV3VPCnIxKpyyPgFOuo bGJyZHJyXGJyZHJzXGJy QQG5CAItYlBwfzTnBDda bHBhZHQxMFxjbHBhZGZ0 K1jlhNHnYHDeFHeijHCs HOYqG7yufSRjGMquVRUi cGFkZmwzXGNscGFkYjBc I2erQIPjTkCrE9XroUn2 MDAwXGNsdmVydGFsdFxj iMZiMAP9ORYgRHCfOTKg XJO4VGKbMuLmbcRmKLot bGJyZHJiXGJyZHJzXGJy FYG5IDFjRzDqbcIxOXqe bGJyZHJsXGJyZHJzXGJy OQH8NUNrYoOtowBmXEmx bGJyZHJyXGJyZHJzXGJy TFH4XPFjHgKpluZuRXol bHBhZHQxMFxjbHBhZGZ0 Z5fzxIFaDQVuDQnwoNPj TXSvN6nzrIXsJBtzMXHa cGFkZmwzXGNscGFkYjBc I7gfGTHjQeIrQ5MtuVl5 NjAwXGNsdmVydGFsdFxj hLJzJVO6UZNgCUCfUXJv ORT5NBOaVqMkbwUlMNbn bGJyZHJiXGJyZHJzXGJy TPZ5UBKbAjJviiWuGCyg bGJyZHJsXGJyZHJzXGJy AMZ6WLOkZfNqweCfGZld bGJyZHJyXGJyZHJzXGJy WHA5YJYbEeFszoJnPUth bHBhZHQxMFxjbHBhZGZ0 S2lyjYUwEJWcRBlmzEAk XFEnJ5oosXYrLTbuRLKc cGFkZmwzXGNscGFkYjBc W4vgMYCpLjQhB4LzwUi9 FcHrAWQasvHenL24Peay p7VfRYLgQBS5MDwuXKza bFxwbGFpblxmMFxmczI0 XHBsYWluXGYxXGZzMjBc bGFuZzEwMzNcaGljaFxm VNroPgLdWEDhTGqzJ2zp MdUhI4JzVCFtOvNuKE0p ESVuZE8jYKW4LZCpSnUl Z9EcPAGPNZ5SY4ZsVNIS H1IxqRgbwP0vVsBiQgFk ZVbqGI5vBFUfJ2oezADi FHWoTHYkK2lkVdFndZ8t aFxmMVxjZjJcZnMyMFxs dHJjaFxjZWxsXHBhcmRc sQ83Lvxat6QkWKIbJLS2 MFxzMFxxbFxwbGFpblxm QLdjpjD0GFIsEOnpSYXq XGZzMjBcbGFuZzEwMzNc aGljaFxmMVxkYmNoXGYx VTkbZ2psFhXcB4ZmJIZt UdCsEi76OjAgIzCfcJsx sP8bPfKqHdGhMOrsHQ3q FMSeL2znwDKwAXLoOEOa T0mcIuEvxY5xmOcqPUqp ZjJcZnMyMFxsdHJjaFxj GGawHCHashQzyP89Zysl v1IrXRFiVXZ7VAyhYIts bFxwbGFpblxmMFxmczI0 XHBsYWluXGYxXGZzMjBc bGFuZzEwMzNcaGljaFxm SOcnGrRcJFEyFPguQ1oy JjPyX2FjPNHbIkZfGm2t MX3eGAHdRKGzUQtaITNp XGZzMjBcbGFuZzEwMzNc aGljaFxmMVxkYmNoXGYx LCvwC6ekPgTyZ7BqASOn IbSpmBQcG8kcD2OxyCtk tiKnlKjpg6cwhMDhBHct s8YrhlNlyKriJCRkVMSe XHBsYWluXGYwXGZzMjRc bTljxR0iIhNdFpCvUVgv XC5uTZQlJ3ajgWAwXXPr UGPkW1vwZmYxwS8hbDle MVxmczIwXHBhcn0= Diagnosis (test code = b7trxTAlWNSphYO9YOWt 34) ERFdj1wra5VrsIQpdDJe UYestPFlgeBtfv85hMO6 mV75IW7sHJJfAqT5FPOo voF2Zpv1SKSsMVGvpZYh V035v0wcq1aggaBicAM0 wWgpGKXwOZF7YlYzMSB9 QJU9GIn3nOIiCbThkNyq NIypIQD3MaVyNSc1vRQt EmJsaRq3HGOyWWE4OVp2 PEb4vNH9YHJsjFl6OoBo CVN7JynhPQs3fWk9ZESc qUh4AoZjYYW7ZRToBVJw fBhbaV8oVwRdOAeyWKLh Zx4nHCXoYQMsh0ruEGLb n4DexTtaK8pbxZQgCFM6 xT2dOGDoz0UxctI9VHJr rAXocfPkWJ9sOAJegHBg IGltcHJpbnQgKEFEMjAt PrLcUBWuFUT7CcXoRkOa TQv3HTTuoragKWVfuJe6 TkJfbDjrWiJiULLLAz3Z JDWbKVpQYL0CX24XQ3nC GLSkCCBDM7JIWPNpCiKz KADwNHSqMCJDLQDYM9cp YXJccGFyZFxmMFxwYXJc cGFyfQ== Comment (test code = u8madBOlJXFjeIX3KLPw 9835) RHIxr8mvk9VlhNTgvNSv FHbusPEppdEiwl76iJW7 kT39SY0qUBRkKeO0INBu jeA4Cbw3YOMfJZUegUBb X873i1bwx0olxlSmaGV8 fVxwYXJkXHBsYWluXGZz MjAgRnJvbSBvdXRzaWRl UUZiUP4lZXQnCK8qjN8t bqKpADL5jKGazBL2iZSr oXTiDWXatRYtx2obyKIz cECmc08gA4j1g7Ubsa6m cGFyXGYwXHBhciBQZXJp kIhfihQuCSDze10oVOZb KTZtUBPhc1uzUUtdyQfc B5p6t3GdreE3lSDxOGgi S5KfCIMjICZmeaZboIgs B8l9DWRrOY8yIJ4djj6l aWSxqw1gBHKnlubtTXRr Iu2bNVVyRPWyx9rfR48n FNHbuJ8xw8ssEK9lJLKv a9Nzb9YrdVcvpsMgz2ei taHvIQu3fAUwO5EbxTHl HUPbUSknBBtblYFxwy94 IHdpdGggdHJpbGluZWFn QEMxYL5wlN0mk2adh6it HgUVIEnfh5ZauY0pvZco myWyvmQzoDYji3RpmSY0 lVLmXJHfMON7PGGfMQQk fYHecS2bNPIkQPOmy9Qh ui0dVH1ebZ0xr7ZazA1m MJDii3ahAZ86HLZkrMDh oOAjmHdxdTwbH5q1APRz AzdvS2NtKY5dTZ23lR1V HATwIQvtM2yfwFkerBOx vO6vplTpx8AhDE3zC0Cg FSK4k1V7sYHoDJPrCDHo w10dLAEbNZMgeDWacEso rChak4auVoD3SYRfCGCd gWpbXMKXJPdyC0zyxHak sZRlS3FmxrXwf6D1jSSl UXM1hLiydGUedeUnuHMz DV4gnZ7zgyFpAQLcyWgh L7P9YDTiwUjfsDnccJVj UFFnlMS8NFOoGG3tZNKd lWRxjd5nUHCvMMroru0b YJWdmqQiiRBfrfXqcA70 xdItzuAlkFetfFOlC3Ao qIEedz6yRBYriO9dyZEq o32nAJGlaDjvsKbensHk uIRouoPcnK32xgNlqzOi gNalkIVwY1JoqIBbYUGh V9YupN7rCwlhxh5ooQYc IFxwYXJccGFyIEJvbmUg aBSbgk45QGOwUJXtujNt xY95MR58FEcwnQUjP4Ge tFPqTUZmVHLarFX2rNBm aCohvY2rilNpk3VeNXqi dZyvlKAjP4Hpo4SaoqEn eRG1cBBvsCxxvx8mULR4 xKyvp2jhJCGccOtyCRPx DWPgEGlflOi8XVr0HLHu L2KjOKEnPK7xILThJZlu rhlgF5t9SVIjJIEqRKCa KSP0ABVcIIEwkhZbj43e IDFygtBufFbql9qvErN5 DZFbPYFyXPK1znVnrdMx VO08GUOsMnS0o3LagHNh CMzvni0udSPpCRIlikOZ EMFxz7D9u8teWAWjVJXl o7jjT9dwxbBau9P0OkXp b060MD14oB5mXYqgF7h7 o8bpgeS1tDKni3D1RWer t7lze3XgABWyen1ofPXw FO0vyELze9XrwQ43wEEh KdCQTXGLCMNfv9zvXRZg grMoAe9hly6yyYr6eJUl MT9oXPQvATDTRV67YSY5 vGbfP4CNADflTONGUD8R H7HeXGVzeAvau1HuViGk DrDwb4ijM7ZvIPCwm6Z7 GCeva3khj5AyTJ0oS6R0 nLVyVICge4IleJDyIj1t GGyEOrFfTmKzH7ZjKJQH TFIsIGFuZCBNUEwuIFxw YXJ9 Disclaimer (test code = i4sgnPLuRQIxfEJuSuUm 9844) LFKkELXtw4riRGUkpBPd ZzEwMzNcZnRuYmpcdWMx FGJbGsVdu3hce878nOHg o3ueAFLbBaV3rHKvIZUb xWJmA431CHJtGHlyi7hr t1SgWBZykSLdg9D0KYYN zlrnhAw9vBinC81uq1P0 TuyeX4uuMTYyQBYzC5Eu KV0qDHQdKwc6MZJ6QVW5 KEPlUVGvH4PsLR1aBAKz kMMvUMn8t1slbRytBLJe PYZ8c4dgSYtijlJcOH9v gk0edSx5e0snsfCeUVBm OUKxgGWQLSJsE3KdxEbl Sa4kiRe4eIzmHbtgFKR5 Xjc0EK7xbd95zpn2zNoj NAIkkowaIvO8BPupAUQz zidbZQt0JWvnCUDhxFO7 YPRlaCPiS9LcJXAkBS3s wmu1ABS6GXbhJZWfBoL1 NDBcaGVhZGVyeTcyMFxm s081VKQ1HiStZA4yZ6Ws r3R5wO4lmPWdAOThiBHz VsWpYUMtyh9abYEpYWhm c7LmYTN1wfC2yRQipGRu SMBiEX38Ohiix0ShQxuf XZZ9ASCijxSqj1Fuz0tl MpHgzsYaR7ibS9GcJSMn DJVrNJWqCfWpooBiw7Gx n0QykBVflKu7n6ztAMTk RHPrkCjfc1fxNZQ1GAKf H1H0aWMge9ibHPgoZTEx yYH3qhL0UUWreSWpG8Qy xM0hOQXgAD8jleq5n8xw FHP0LGwyPDBhWhH4spI2 NDBcaGVhZGVyeTcyMFxm b707CLZ4MfGxJBZzc8Nl T0FlrBfkN61kfNzbQ73o OFYysAvjpP5tfKgkzU6q ZjBcZnMyNFxxbFxwbGFp qhtbKGfabaZ7FJswfrro OWYdQYtlC3dqFtJvXEUs wNpbJUato9LnHOGaRMLg GujcyzA8MHDEo21oIPYo j3XyNKPxiX6ncSSuNBpi eeNmiIH9PAdkscInYcZj loGqHIQruB1pSSKrJB4v VJYcaxXzib8gbuSfNMVg KSSnB3KjzsqicQohzhHa FUWwdx2wypBaXPZ3RANE WJ8ZKMCuOQZog88tYYAw iTtbxR5ezMCwkqFxVRMj r7DvjT0gfRGCMQTyN1sf BG6mAZefe9MspWVajRCq gJC5AFLzz6JlGmTavnMe vBNucYAfL1XubKghB7xh XRCrESVzuiQfbVTjr2Gd JEOdcBI8wEUwCL3KXkBK e19gHJHkRVXFrqEqDQUy iLyuqKH7wiM7xE3aBaVC ZiBhcHBsaWNhYmxlLCBj q904gl0uqdJ4XYIiXGRz rkwgo6OgHGJbIPLapR43 GCWePLYclg7jcmfmjUHi xbTjQ5Aublk7uH0bQJBe YWluXGYxXGZzMjJcbGFu ZzEwMzNcaGljaFxmMVxk NgAkTGKfJQnlV4pmRrKw ZnMyMlxwYXJ9 MD DaoFlow Cytometry Specimen Collection -Bone [id number] 18:41:43 Test Item Value Reference Range Interpretation Comments Flow Cytometry Yes (Received) (test code = 8319) Ken Ruiz (test [id number] code = 10324) GUILLAUME (test code = GUILLAUME) Premedication type:->NoneAspiration laterality:->UnilateralB iopsy laterality:->UnilateralP rocedure type:->ClotProcedure type:->BiopsyProcedure type:->AspirateSelect the Bone Marrow Stains:->IronSelect the Bone Marrow Stains:->Reticulin/Trich brenton MD DaoMolecular Diagnostics Specimen Collection -Bone [id number] 15:07:54 Test Item Value Reference Range Interpretation Comments Molecular Diagnostics Yes (Received) (test code = 8400) Pathology (Qualitative) (test code = 8412) GUILLAUME (test code = GUILLAUME) Premedication type:->NoneAspiration laterality:->Unilateral Biopsy laterality:->Unilateral Procedure type:->ClotProcedure type:->BiopsyProcedure type:->AspirateSelect the Bone Marrow Stains:->IronSelect the Bone Marrow Stains:->Reticulin/Tric hrome MD DaoBondolores marrow aspiration w/ [id number] 19:00:00LISA Carpenter 12/15/2019 8:01 AM Procedure: Bone marrow aspiration/biopsy Date/Time: 020 3:18 PM Provider Information:Performed by: CORIE Carpenteruthorized by: LISA Griffith Tufting Machine Fixer present: yesAssistant: Aga Krishnan tube bender used?: tube bender not neededPatient Diagnosis:Pre-procedure diagnosis: CMMLPost-procedure diagnosis: unchanged [...] Interpretation Comments V K (test code = 13499-3) 5.1 3.4- 4.5 mEq/L H Lab Interpretation (test code = Abnormal 25519-9) MD King HIV 1/2 Ag&Ab Path [id number] 14:20:41 Test Item Value Reference Range Interpretation [...] 9: 20 AM Bayron King RPR Path [id number] 14:20:40 Test Item Value Reference Interpretation Comments Range TMP RPR Path The Rapid Interpretation Plasma Reagin (test code = (RPR) assay is [place] RLY 842762) negative. If Isabelle Crook ed by: syphilis BARB infection is Ayesha NEWBERRY suspected, Date/Time: 12.01 please perform 9:20 AM CDT a Treponemal Transcribed Ian e/Time: specific 12.11.2019 9:20 AM screening CDTElectronical ly assay. Signed By: maikel SMART 12.01 9:20 AM Bayron King HCV Ab Path [id number] 14:20:39 Test Item Value Reference Range Interpretation Comments HCV Ab Path There is NO Interp (test serologic code = 8923) evidence of ____BARB Hepatitis C CONI,Dictated by: virus antibody. BARB BRADSHAW IN,Dictated Date/Time: 12.01 9:20 AM CDT Transcribed Ian e/Time: 12.11.2019 9:20 AM CDTElectronical ly Signed By: BARB GRESHAM, on 12.11.2019 9:20 AM Bayron King HBcAb Path [id number] 14:20:38 Test Item Value Reference Range Interpretation Comments HBcAb Path There is NO Interp (test serologic code = 8924) evidence of ____BARB Hepatitis B CONI,Dictated by: virus core BARB NEWBERRY, Dictated antibody. Date/Time: 12.01 9:20 AM CDT Transcribed Ian e/Time: 12.11.2019 9:20 AM CDTElectronical ly Signed By: BARB GRESHAM, on 12.11.2019 9:20 AM Bayron King HBsAg Path [id number] 14:20:37 Test Item Value Reference Range Interpretation Comments HBsAg Path There is NO Interp (test serologic code = 8922) evidence of ____BARB detectable CONI,Dictated by: Hepatitis B virus BARB MORGAN,Dictated surface antigen. Date/Time: 12.11.2019 9:20 AM CDT Transcribed Ian e/Time: 12.11.2019 9:20 AM CDTElectronical ly Signed By: BARB GRESHAM, on 12.11.2019 9:20 AM Bayron King HTLV Path [id number] 14:20:36 Test Item Value Reference Range Interpretation [...] (test code = Non Reactive Non Reactive 456828) MD Aponte C Virus [id number] 04:17:10 Test Item Value Reference Range Interpretation Comments HCVAb. (test code Non Reactive Non Reactive Performed at: = 5762) [facility] [address] [address] MD Aponte B Surface [id number] 04:16:51 Test Item Value Reference Range Interpretation Comments HBsAg. (test code Non Reactive Non Reactive Performed at: = 5747) [facility] [address] [address] MD Fay Saldana Total Ig Core Ab (SCREENING) (anti-HBc total Ig; HBcAb total Ig)2019-12-11 04:16:48 Test Item Value Reference Range Interpretation Comments HBcAb. (test code Non Reactive Non Reactive Performed at: = 5742) [facility] [address] [address] MD DaoHTLV I/II [id number] 04:16:23 Test Item Value Reference Range Interpretation Comments HTLV I/II Ab. Non Reactive Non Reactive Performed at:M D (test code = 5842) [facility] [address] [address] MD DaoHIV-1/2 Antigen and Antibodies, Fourth [id number] 00:13:43 Test Item Value Reference Range Interpretation Comments HIV 1/2 Ag & Ab, Non Reactive Non Reactive Performed a t: 4th Gen (test code [facility] = 9280) [address] [address] MD DaoResearch Protocol [id number] 21:05:02 Test Item Value Reference Range Interpretation Comments Research Prot (test code = 7189) 709588 MD DaoVitamin B12 [id number] 19:22:54 Test Item Value Reference Range Interpretation Comments Vitamin B12 Lvl (test code = 8017) 442 pg/mL 211-946 MD DaoTfclxwysXlsynveo1307-34-80 19:05:24 Test Item Value Reference Range Interpretation Comments Ferritin Lvl (test code = 5608) 219 ng/mL 30-400 MD DaoConfirm [id number] 18:37:44 Test Item Value Reference Range Interpretation Comments ABORh Confirm. (test code = 882-1) A POS MD [id number] 18:01:40 Test Item Value Reference Range Interpretation Comments Erythropo Lvl (test code = 5523) 20.2 2.6- 18.5 mIU/mL H Lab Interpretation (test code = Abnormal 95820-6) MD DaoNT-Pro BNP (In-House)2019-12-10 17:45:30 Test Item Value Reference Range Interpretation Comments NT ProBNP (test code = 9385) 394 pg/mL <=125 H Lab Interpretation (test code = Abnormal 14416-5) MD DaoPartial Thromboplastin [id number] 17:23:50 Test Item Value Reference Range Interpretation Comments PTT (test code = 6773) 31.8 24.2- 36.0 second(s) MD DaoProthrombin [id number] 17:23:49 Test Item Value Reference Range Interpretation Comments PT (test code = 6746) 13.5 12.0- 14.3 second(s) INR (test code = 5973) 1.06 0.90-1.10 MD DaoNgqebxpoRaqdckyfly3614-76-03 17:23:24 Test Item Value Reference Range Interpretation Comments Fibrinogen (test code = 5610) 290 mg/dL 214-503 MD DaoD [id number] 17:23:23 Test Item Value Reference Range Interpretation Comments D-Dimer (test code = 1.20 0.10- 0.50 H The cut off value for 5419) mcg/ml FEU exclusion of ve nous thromboembolism is <0.50 mcg/mL FEUs (fi brinogen equivalent unit s). Lab Interpretation Abnormal (test code = 67933-2) MD [id number] 17:20:49 Test Item Value Reference Range Interpretation Comments TSH (test code = 7578) 1.27 0.27- 4.20 mcunit/mL MD DaoFolate [id number] 17:19:59 Test Item Value Reference Range Interpretation Comments Folate Lvl (test 12.3 ng/mL 4.8-24.2 Hemolyzed s pecimens with code = 5625) Hemolysis Index >30.0 (30 mg/dL or vi sible hemolysis) may cause interference an d give falsely high re sults. MD DaoRetic [id number] 16:43:11 Test Item Value Reference Range Interpretation Comments Retic Cnt Auto (test code = 34840-8) 2.4 % 0.5-1.5 H RETHE (test code = 6973) 37.7 pg 23.2-37.5 H IRF (test code = 37245-9) 25.2 % 2.3-18 H Lab Interpretation (test code = Abnormal 67394-8) MD DaoCOVID-19 (SARS-CoV-2) PCR-Asymptomatic [id number] 18:10:47 Test Item Value Reference Range Interpretation Comments COVID19 (SARS Not Detected Not Detected This test is a CoV-2) Result qualitative (test code = reverse-transcr iptase 69022-6) polymerase artem n reaction (RT-PC R) developed [...] fied by the Microbiolog y Laboratory at [facility]. Results must be interpreted wit hin the context of all relevant clinical and la boratory findings and sh ould not form the sole b asis for a diagnosis or treatment decision.Product Accountant al controls are in cluded to assess [...] sting if clinically dave cated. COVID19 SARS ALLERGY NURSE Swab Source (test code = 24622) COVID19 SARS New Patient Indication (test code = 73981) [facility] W/PLT COUNT & AUTO [id number] 10:19:00 Test Item Value Reference Range Interpretation [...] Received comment: User comments: Slide comments:BASIC METABOLIC [id number] 05:19:00 Test Item Value Reference Range Interpretation [...] S NOT APPLICABLE FOR DIALYSIS PATIEN TS. [id number]-[id number] 09:50:00 Test Item Value Reference Range Interpretation Comments ACTIVATED CLOTTING TIME 208 sec Refe rence Range: (BEAKER) (test code = 74-137 seconds, 441) Baseline/TESTED AT [place] [id number] [facility] [address] [id number]-[id number] 09:13:00 Test Item Value Reference Range Interpretation Comments ACTIVATED CLOTTING TIME 246 sec Refe rence Range: (BEAKER) (test code = 74-137 seconds, 441) Baseline/TESTED AT [address] [address] CBC W/PLT COUNT & AUTO [id number] 07:02:00 Test Item Value Reference Range Interpretation [...] Received comment: User comments: Slide comments:BASIC METABOLIC [id number] 06:34:00 Test Item Value Reference Range Interpretation [...] PATIEN TS. CBC W/PLT COUNT & AUTO [id number] 11:06:00 Test Item Value Reference Range Interpretation [...] 3438) Received comment: User comments: Slide comments:LIPID [id number] 10:22:00 Test Item Value Reference Range Interpretation [...] 130-159 High 160-189 Very High >=190COMPREHENSIVE METABOLIC [id number] 10:22:00 Test Item Value Reference Range Interpretation [...] S NOT APPLICABLE FOR DIALYSIS PATIEN TS. PT/[id number] 10:11:00 Test Item Value Reference Range Interpretation [...] is2.5-3.5 for patients wiht mechanical heart valves.TISSUE [id number] 16:04:00Surgical Pathology Report Case: [id number] Authorizing Provider: Madison Wang MD Collected: 09/24/2018 1109 Ordering Location: [facility] Received: 09/24/2018 1335 PERIOPERATIVE SERVICES Pathologist: Alfonso Wong MD Specimen: Pl aque, RIGHT CAROTID PLAQUE ARTERY, RIGHT CAROTID, ENDARTERECTOMY:CALCIFIC ATHEROSCLEROTIC PLAQUE Signing Pathologist Direct Phone Line: [phone] signed by Alfonso Wong MD on 09/29/2018 at 4:04 [id number]; [id number] stenosis right side Right carotid plaque Specimen is received in a formalin-filled container labeled withthe patient's information and labeled "right carotid plaque" and consists of a tubular shaped segment of calcified tissue measuring 3.5 cm in length and 0.8 cm in diameter. Convex Grinder Operator sections are submitted in A1 for decalcification. [...] MDReport Verified Date/Time: 09/28/2018 09:56:53 Reading Location: [address] Ortho Consult Reading Room [id number] 06:09:00 Test Item Value Reference Range Interpretation Comments MAGNESIUM (BEAKER) (test code = 1.7 mg/dL 1.6-2.6 627) BASIC METABOLIC [id number] 06:09:00 Test Item Value Reference Range Interpretation [...] FOR DIALYSIS PATIEN TS. MR, BRAIN, WITHOUT [id number] 17:40:00FINAL REPORT MRI brain Comparison: CT dated [...] Thomaseport Verified Date/Time: 09/27/2018 17:40:08 Reading Location: [address] Neuro Reading Room [place] METABOLIC [id number] 05:35:00 Test Item Value Reference Range Interpretation [...] /100 WBC 0-0 (test code = 413) [id number] 06:27:00 Test Item Value Reference Range Interpretation Comments MAGNESIUM (BEAKER) (test code = 1.9 mg/dL 1.6-2.6 627) BASIC METABOLIC [id number] 06:27:00 Test Item Value Reference Range Interpretation [...] (test code = 413) CT, BRAIN, WITHOUT [id number] 14:11:00FINAL REPORT CT, BRAIN, WITHOUT CONTRAST INDICATION: [...] recommended for further characterization. Signed: JR Gilmar, Beranna WHITINGeport Verified Date/Time: 09/25/2018 14:11:51 Reading Location: [facility] Radiology Reading Room [id number] 04:50:00 Test Item Value Reference Range Interpretation Comments MAGNESIUM (BEAKER) (test code = 1.7 mg/dL 1.6-2.6 627) BASIC METABOLIC [id number] 04:50:00 Test Item Value Reference Range Interpretation [...] WBC 0-0 (test code = 413) GLUCOSE-STAT [id number] 14:26:00 Test Item Value Reference Range Interpretation Comments GLUCOSE RANDOM (BEAKER) (test code 118 mg/dL 70-110 H = 652) HGB/HCT (H&H) - STAT [id number] 14:26:00 Test Item Value Reference Range Interpretation Comments HEMOGLOBIN (BEAKER) (test code = 9.7 g/dL 13.0-16.8 L 410) HEMATOCRIT (BEAKER) (test code = 29.0 % 40.0-50.0 L 411) CBC W/PLT COUNT & AUTO [id number] 11:47:00 Test Item Value Reference Range Interpretation [...] Received comment: User comments: Slide comments:BLOOD GAS, [id number] 10:40:00 Test Item Value Reference Range Interpretation [...] (test code = 1819) 100.0 % GLUCOSE-STAT [id number] 10:40:00 Test Item Value Reference Range Interpretation Comments GLUCOSE RANDOM (BEAKER) (test code 113 mg/dL 70-110 H = 652) HGB/HCT (H&H) - STAT [id number] 10:40:00 Test Item Value Reference Range Interpretation Comments HEMOGLOBIN (BEAKER) (test code = 10.5 g/dL 13.0-16.8 L 410) HEMATOCRIT (BEAKER) (test code = 31.0 % 40.0-50.0 L 411) SODIUM NA-STAT [id number] 10:39:00 Test Item Value Reference Range Interpretation Comments SODIUM (BEAKER) (test code = 381) 135 meq/L 135-148 POTASSIUM-STAT [id number] 10:39:00 Test Item Value Reference Range Interpretation Comments POTASSIUM (BEAKER) (test code = 3.8 meq/L 3.6-5.5 379) HEMOGLOBIN [id number] 10:36:00 Test Item Value Reference Range Interpretation Comments HEMOGLOBIN A1C (BEAKER) (test code = 5.3 % 4.3-6.1 368) [id number] 09:00:00 Test Item Value Reference Range Interpretation Comments MAGNESIUM (BEAKER) (test code = 2.1 mg/dL 1.6-2.6 627) COMPREHENSIVE METABOLIC [id number] 09:00:00 Test Item Value Reference Range Interpretation [...] NOT APPLICABLE FOR DIALYSIS PATIEN TS. LIPID [id number] 09:00:00 Test Item Value Reference Range Interpretation [...] 100-129 Borderline 130-159 High 160-189 Very High >=[id number] 08:56:00 Test Item Value Reference Range Interpretation Comments PARTIAL THROMBOPLASTIN TIME 36.8 seconds 22.5-36.0 H (BEAKER) (test code = 760) PROTHROMBIN TIME/[id number] 08:55:00 Test Item Value Reference Range Interpretation Comments PROTIME (BEAKER) (test code = 13.8 seconds 11.7-14.7 759) INR (BEAKER) (test code = 370) 1.1 <=5.9 RECOMMENDED COUMADIN/WARFARIN INR THERAPY RANGESSTANDARD DOSE: 2.0 - 3.0 Includes: PROPHYLAXIS forvenous thrombosis, systemic embolization; TREATMENT for venous thrombosis and/or pulmonary embolus.HIGH RISK: Target INR is 2.5-3.5 for patients with mechanical heart valves.[id number] 05:31:00 Test Item Value Reference Range Interpretation Comments PHOSPHORUS (BEAKER) (test code = 4.0 mg/dL 2.3-4.7 604) [id number] 05:31:00 Test Item Value Reference Range Interpretation Comments MAGNESIUM (BEAKER) (test code = 2.0 mg/dL 1.6-2.6 627) BASIC METABOLIC [id number] 05:31:00 Test Item Value Reference Range Interpretation [...] PATIEN TS. CBC W/PLT COUNT & AUTO [id number] 05:11:00 Test Item Value Reference Range Interpretation [...] = 2801) RAD, CHEST, 1 VIEW, NON [id number] 08:23:00Reason for exam:->pl effusionShould this be performed [...] Zepeda Verified Date/Time: 06/16/2018 08:23:01 Reading Location: [facility] Radiology Reading Room [facility] (HEMOGRAM ONLY)2018-06-16 05:37:00 Test Item Value Reference [...] = 413) RAD, CHEST, 1 VIEW, NON [id number] 12:25:00Reason for exam:->pl effusionShould this be performed [...] MDReport Verified Date/Time: 06/15/2018 12:25:59 Reading Location: [address] Transitional Reading Room [id number] 06:08:00 Test Item Value Reference Range Interpretation [...] = 413) CBC W/PLT COUNT & AUTO [id number] 11:45:00 Test Item Value Reference Range Interpretation [...] PLATELET CONCENTRATION Decreased (CELLAVISION)(BEAKER) (test code = 3432) Received comment: User comments: Slide comments:[id number] 06:12:00 Test Item Value Reference Range Interpretation Comments MAGNESIUM (BEAKER) (test code = 1.9 mg/dL 1.6-2.6 627) BASIC METABOLIC [id number] 06:12:00 Test Item Value Reference Range Interpretation [...] Specimen slightly ictericCBC W/PLT COUNT & AUTO [id number] 12:36:00 Test Item Value Reference Range Interpretation [...] = 3438) Received comment: User comments: Slide comments:[id number] 06:33:00 Test Item Value Reference Range Interpretation Comments MAGNESIUM (BEAKER) (test code = 1.8 mg/dL 1.6-2.6 627) BASIC METABOLIC [id number] 06:33:00 Test Item Value Reference Range Interpretation [...] PATIEN TS. RAD, CHEST, 1 VIEW, NON [id number] 04:27:00Reason for exam:->post-opShould this be performed at [...] MDReport Verified Date/Time: 06/13/2018 04:27:13 Reading Location: [facility] C013V Neuro Reading Room CBC W/PLT COUNT & AUTO [id number] 14:42:00 Test Item Value Reference Range Interpretation [...] MDReport Verified Date/Time: 06/12/2018 11:47:39 Reading Location: [facility] Radiology Reading Room BASIC METABOLIC [id number] 06:19:00 Test Item Value Reference Range Interpretation [...] PATIEN TS. RAD, CHEST, 1 VIEW, NON [id number] 09:05:00Reason for exam:->pl effusionShould this be performed at the bedside?->YesFINAL REPORT CLINICAL HISTORY: pl effusion TECHNIQUE: 1 view of the chest. [facility]: 06/10/2018 IMPRESSION: The right central line has been removed. Three chest tubes remain. There is no evidence of pneumothorax. There is bibasilar atelectasis. There is a trace right effusion. The cardiomediastinal silhouette is magnified by technique with sternotomy wires. Signed: Agatha Galvin MDReport Verified Date/Time: 06/11/2018 09:05:55 Reading Location: [facility] Rad[facility] Reading Room [id number] 05:42:00 Test Item Value Reference Range Interpretation Comments MAGNESIUM (BEAKER) (test code = 1.9 mg/dL 1.6-2.6 627) BASIC METABOLIC [id number] 05:42:00 Test Item Value Reference Range Interpretation [...] CORPUSCULAR HEMOGLOBIN CONC 32.1 GM/DL 32.3-36.5 L ([facility] (test code = 752) RED CELL DISTRIBUTION WIDTH 16.4 % 11.6-14.4 H ([facility] (test code = 412) PLATELET COUNT ([facility] (test code 77 K/CU MM 150-450 L = 756) MEAN PLATELET VOLUME ([facility] 9.9 fL 9.4-12.4 (test code = 754) NUCLEATED RED BLOOD CELLS ([facility] 0 /100 WBC 0-0 (test code = 413) POCT-GLUCOSE [id number] 19:48:00 Test Item Value Reference Range Interpretation Comments POC-GLUCOSE METER 157 mg/dL 70-110 H TESTED AT [place] [address] ([facility] (test code = [facility] 1538) [address] POCT-GLUCOSE [id number] 19:48:00 Test Item Value Reference Range Interpretation Comments POC-GLUCOSE METER 128 mg/dL 70-110 H TESTED AT [place] [address] ([facility] (test code = [facility] 1538) [address] HEMOGLOBIN AND [id number] 13:43:00 Test Item Value Reference Range Interpretation Comments HEMOGLOBIN ([facility] (test code = 7.8 GM/DL 13.7-17.5 L 410) HEMATOCRIT ([facility] (test code = 23.1 % 40.1-51.0 L 411) LACTIC ACID, ARTERIAL, WHOLE [id number] 09:11:00 Test Item Value Reference Range Interpretation Comments LACTATE BLOOD ARTERIAL (2) 1.4 mmol/L 0.5-2.2 ([facility] (test code = 2874) OXYGEN SATURATION, [id number] 08:31:00 Test Item Value Reference Range Interpretation Comments O2 SATURATION (MEASURED) ([facility] 70.9 % (test code = 1455) RAD, CHEST, 1 VIEW, NON [id number] 05:56:00while patient is intubated or has chest [...] surgical changes.Additional findings: None. Signed: Jeanie Corona MDReport Verified Date/Time: 06/10/2018 05:56:50 Reading Location: [address] Transitional Reading Room [id number] 04:23:00 Test Item Value Reference Range Interpretation Comments PHOSPHORUS (BEAKER) (test code = 3.6 mg/dL 2.3-4.7 604) [id number] 04:23:00 Test Item Value Reference Range Interpretation Comments MAGNESIUM (BEAKER) (test code = 2.3 mg/dL 1.6-2.6 627) BASIC METABOLIC [id number] 04:23:00 Test Item Value Reference Range Interpretation [...] DIALYSIS PATIEN TS. LACTIC ACID, ARTERIAL, WHOLE [id number] 04:15:00 Test Item Value Reference Range Interpretation [...] 0-0 (test code = 413) BLOOD GAS, [id number] 22:21:00 Test Item Value Reference Range Interpretation [...] 1819) 36.0 % LACTIC ACID, ARTERIAL, WHOLE [id number] 21:36:00 Test Item Value Reference Range Interpretation Comments LACTATE BLOOD ARTERIAL (2) 1.6 mmol/L 0.5-2.2 (BEAKER) (test code = 2874) [id number] 21:36:00 Test Item Value Reference Range Interpretation Comments MAGNESIUM (BEAKER) (test code = 2.3 mg/dL 1.6-2.6 627) BLOOD GAS, [id number] 21:15:00 Test Item Value Reference Range Interpretation [...] (test code = 1819) 60.0 % GLUCOSE-STAT [id number] 21:15:00 Test Item Value Reference Range Interpretation Comments GLUCOSE RANDOM (BEAKER) (test code 149 mg/dL 70-110 H = 652) HGB/HCT (H&H) - STAT [id number] 21:15:00 Test Item Value Reference Range Interpretation [...] 0.0 % 0.0-5.0 code = 1414) CALCIUM, [id number] 18:48:00 Test Item Value Reference Range Interpretation Comments CALCIUM IONIZED (BEAKER) (test 1.16 mmol/L 1.12-1.27 code = 698) PH, BLOOD (BEAKER) (test code = 7.38 1810) BLOOD GAS, [id number] 18:48:00 Test Item Value Reference Range Interpretation [...] (test code = 1819) 100.0 % GLUCOSE-STAT [id number] 18:48:00 Test Item Value Reference Range Interpretation Comments GLUCOSE RANDOM (BEAKER) (test code 146 mg/dL 70-110 H = 652) HGB/HCT (H&H) - STAT [id number] 18:48:00 Test Item Value Reference Range Interpretation Comments HEMOGLOBIN (BEAKER) (test code = 9.2 g/dL 13.0-16.8 L 410) HEMATOCRIT (BEAKER) (test code = 27.0 % 40.0-50.0 L 411) SODIUM NA-STAT [id number] 18:47:00 Test Item Value Reference Range Interpretation Comments SODIUM (BEAKER) (test code = 381) 137 meq/L 135-148 POTASSIUM-STAT [id number] 18:47:00 Test Item Value Reference Range Interpretation Comments POTASSIUM (BEAKER) (test code = 4.1 meq/L 3.6-5.5 379) RAD, CHEST, 1 VIEW, NON [id number] 18:00:00Reason for exam:->sp cardiac surgery intubatedShould this [...] MDReport Verified Date/Time: 06/09/2018 18:00:13 Reading Location: [facility] C013W Consult Reading Room [id number] 17:50:00 Test Item Value Reference Range Interpretation Comments POTASSIUM (BEAKER) (test code = 4.2 meq/L 3.5-5.1 379) [id number] 17:50:00 Test Item Value Reference Range Interpretation Comments MAGNESIUM (BEAKER) (test code = 2.1 mg/dL 1.6-2.6 627) [id number] 17:50:00 Test Item Value Reference Range Interpretation Comments GLUCOSE RANDOM (BEAKER) (test code 127 mg/dL 70-105 H = 652) BASIC METABOLIC [id number] 17:50:00 Test Item Value Reference Range Interpretation [...] DIALYSIS PATIEN TS. LACTIC ACID, ARTERIAL, WHOLE [id number] 17:47:00 Test Item Value Reference Range Interpretation Comments LACTATE BLOOD 1.3 mmol/L 0.5-2.2 Specimen sligh tly ARTERIAL (2) (BEAKER) hemoly zed (test code = 2874) [id number] 17:43:00 Test Item Value Reference Range Interpretation Comments PARTIAL THROMBOPLASTIN TIME 29.2 seconds 22.5-36.0 (BEAKER) (test code = 760) [id number] 17:43:00 Test Item Value Reference Range Interpretation Comments FIBRINOGEN LEVEL (BEAKER) (test 264 mg/dl 225-434 code = 658) PROTHROMBIN [id number] 17:42:00 Test Item Value Reference Range Interpretation [...] (BEAKER) (test code = 413) OXYGEN SATURATION, [id number] 17:28:00 Test Item Value Reference Range Interpretation Comments O2 SATURATION (MEASURED) (BEAKER) 80.0 % (test code = 1455) CALCIUM, [id number] 17:27:00 Test Item Value Reference Range Interpretation Comments CALCIUM IONIZED (BEAKER) (test 1.21 mmol/L 1.12-1.27 code = 698) PH, BLOOD (BEAKER) (test code = 7.37 1810) BLOOD GAS, [id number] 17:27:00 Test Item Value Reference Range Interpretation [...] (test code = 1819) 60.0 % GLUCOSE-STAT [id number] 17:27:00 Test Item Value Reference Range Interpretation Comments GLUCOSE RANDOM (BEAKER) (test code 126 mg/dL 70-110 H = 652) HGB/HCT (H&H) - STAT [id number] 17:27:00 Test Item Value Reference Range Interpretation Comments HEMOGLOBIN (BEAKER) (test code = 9.9 g/dL 13.0-16.8 L 410) HEMATOCRIT (BEAKER) (test code = 29.0 % 40.0-50.0 L 411) SODIUM NA-STAT [id number] 17:26:00 Test Item Value Reference Range Interpretation Comments SODIUM (BEAKER) (test code = 381) 138 meq/L 135-148 POTASSIUM-STAT [id number] 17:26:00 Test Item Value Reference Range Interpretation Comments POTASSIUM (BEAKER) (test code = 4.1 meq/L 3.6-5.5 379) [id number] 16:10:00 Test Item Value Reference Range Interpretation Comments ACTIVATED CLOTTING TIME 109 sec TEST ED AT [place] [address] ([facility] (test code = [place] [address]) [address] [id number] 16:10:00 Test Item Value Reference Range Interpretation Comments ACTIVATED CLOTTING TIME 720 sec TEST ED AT [place] [address] ([facility] (test code = [facility]) [address] [id number] 16:10:00 Test Item Value Reference Range Interpretation Comments ACTIVATED CLOTTING TIME 824 sec TEST ED AT [place] [address] ([facility] (test code = [facility] [address]) [address] [id number] 16:10:00 Test Item Value Reference Range Interpretation Comments ACTIVATED CLOTTING TIME 918 sec TEST ED [address] [facility] 6720 (BEAKER) (test code = [place] [address]) [address] SODIUM NA-STAT [id number] 15:34:00 Test Item Value Reference Range Interpretation Comments SODIUM (BEAKER) (test code = 381) 137 meq/L 135-148 POTASSIUM-STAT [id number] 15:34:00 Test Item Value Reference Range Interpretation Comments POTASSIUM (BEAKER) (test code = 4.4 meq/L 3.6-5.5 379) CALCIUM, [id number] 15:34:00 Test Item Value Reference Range Interpretation Comments CALCIUM IONIZED (BEAKER) (test 1.32 mmol/L 1.12-1.27 H code = 698) PH, BLOOD (BEAKER) (test code = 7.36 1810) BLOOD GAS, [id number] 15:34:00 Test Item Value Reference Range Interpretation [...] (test code = 1819) 100.0 % GLUCOSE-STAT [id number] 15:34:00 Test Item Value Reference Range Interpretation Comments GLUCOSE RANDOM (BEAKER) (test code 118 mg/dL 70-110 H = 652) HGB/HCT (H&H) - STAT [id number] 15:34:00 Test Item Value Reference Range Interpretation Comments HEMOGLOBIN (BEAKER) (test code = 9.5 g/dL 13.0-16.8 L 410) HEMATOCRIT (BEAKER) (test code = 28.0 % 40.0-50.0 L 411) [id number] 14:28:00 Test Item Value Reference Range Interpretation Comments PARTIAL THROMBOPLASTIN TIME 28.3 seconds 22.5-36.0 (BEAKER) (test code = 760) [id number] 14:28:00 Test Item Value Reference Range Interpretation Comments FIBRINOGEN LEVEL (BEAKER) (test 187 mg/dl 225-434 L code = 658) PROTHROMBIN [id number] 14:27:00 Test Item Value Reference Range Interpretation Comments PROTIME (BEAKER) (test code = 17.5 seconds 11.7-14.7 H 759) INR (BEAKER) (test code = 370) 1.4 <=5.9 RECOMMENDED COUMADIN/WARFARIN INR THERAPY RANGESSTANDARD DOSE: 2.0 - 3.0 Includes: PROPHYLAXIS forvenous thrombosis, systemic embolization; TREATMENT for venous thrombosis and/or pulmonary embolus.HIGH RISK: Target INR is 2.5-3.5 for patients with mechanical heart valves.PLATELET [id number] 14:17:00 Test Item Value Reference Range Interpretation Comments PLATELET COUNT (BEAKER) (test 127 K/CU MM 150-450 L code = 756) BLOOD GAS, [id number] 14:13:00 Test Item Value Reference Range Interpretation [...] code = 1819) 100.0 % SODIUM NA-STAT [id number] 14:13:00 Test Item Value Reference Range Interpretation Comments SODIUM (BEAKER) (test code = 381) 132 meq/L 135-148 L GLUCOSE-STAT [id number] 14:13:00 Test Item Value Reference Range Interpretation Comments GLUCOSE RANDOM (BEAKER) (test code 170 mg/dL 70-110 H = 652) HGB/HCT (H&H) - STAT [id number] 14:13:00 Test Item Value Reference Range Interpretation Comments HEMOGLOBIN (BEAKER) (test code = 8.5 g/dL 13.0-16.8 L 410) HEMATOCRIT (BEAKER) (test code = 25.0 % 40.0-50.0 L 411) CALCIUM, [id number] 14:12:00 Test Item Value Reference Range Interpretation Comments CALCIUM IONIZED (BEAKER) (test 1.17 mmol/L 1.12-1.27 code = 698) PH, BLOOD (BEAKER) (test code = 7.32 1810) POTASSIUM-STAT [id number] 14:11:00 Test Item Value Reference Range Interpretation Comments POTASSIUM (BEAKER) (test code = 5.1 meq/L 3.6-5.5 379) POTASSIUM-STAT [id number] 13:31:00 Test Item Value Reference Range Interpretation Comments POTASSIUM (BEAKER) (test code = 6.8 meq/L 3.6-5.5 HH 379) BLOOD GAS, [id number] 13:29:00 Test Item Value Reference Range Interpretation [...] code = 1819) 80.0 % SODIUM NA-STAT [id number] 13:29:00 Test Item Value Reference Range Interpretation Comments SODIUM (BEAKER) (test code = 381) 130 meq/L 135-148 L GLUCOSE-STAT [id number] 13:29:00 Test Item Value Reference Range Interpretation Comments GLUCOSE RANDOM (BEAKER) (test code 213 mg/dL 70-110 H = 652) HGB/HCT (H&H) - STAT [id number] 13:29:00 Test Item Value Reference Range Interpretation Comments HEMOGLOBIN (BEAKER) (test code = 7.8 g/dL 13.0-16.8 L 410) HEMATOCRIT (BEAKER) (test code = 23.0 % 40.0-50.0 L 411) BLOOD GAS, [id number] 13:07:00 Test Item Value Reference Range Interpretation [...] code = 1819) 80.0 % BLOOD GAS, [id number] 13:06:00 Test Item Value Reference Range Interpretation [...] code = 1819) 80.0 % SODIUM NA-STAT [id number] 13:06:00 Test Item Value Reference Range Interpretation Comments SODIUM (BEAKER) (test code = 381) 131 meq/L 135-148 L GLUCOSE-STAT [id number] 13:06:00 Test Item Value Reference Range Interpretation Comments GLUCOSE RANDOM (BEAKER) (test code 121 mg/dL 70-110 H = 652) HGB/HCT (H&H) - STAT [id number] 13:06:00 Test Item Value Reference Range Interpretation Comments HEMOGLOBIN (BEAKER) (test code = 7.9 g/dL 13.0-16.8 L 410) HEMATOCRIT (BEAKER) (test code = 23.0 % 40.0-50.0 L 411) POTASSIUM-STAT [id number] 13:05:00 Test Item Value Reference Range Interpretation Comments POTASSIUM (BEAKER) (test code = 4.2 meq/L 3.6-5.5 379) BLOOD GAS, [id number] 11:02:00 Test Item Value Reference Range Interpretation [...] 1819) 90.0 % HGB/HCT (H&H) - STAT [id number] 11:02:00 Test Item Value Reference Range Interpretation Comments HEMOGLOBIN (BEAKER) (test code = 10.7 g/dL 13.0-16.8 L 410) HEMATOCRIT (BEAKER) (test code = 31.0 % 40.0-50.0 L 411) GLUCOSE-STAT [id number] 11:01:00 Test Item Value Reference Range Interpretation Comments GLUCOSE RANDOM (BEAKER) (test code 104 mg/dL 70-110 = 652) SODIUM NA-STAT [id number] 11:01:00 Test Item Value Reference Range Interpretation Comments SODIUM (BEAKER) (test code = 381) 137 meq/L 135-148 POTASSIUM-STAT [id number] 11:01:00 Test Item Value Reference Range Interpretation Comments POTASSIUM (BEAKER) (test code = 3.6 meq/L 3.6-5.5 379) POCT-GLUCOSE [id number] 08:43:00 Test Item Value Reference Range Interpretation Comments POC-GLUCOSE METER 99 mg/dL 70-[address] [facility] 67[address] (BEAKER) (test code = [place] [address]38) HEMOGLOBIN [id number] 13:25:00 Test Item Value Reference Range Interpretation Comments HEMOGLOBIN A1C (BEAKER) (test code = 5.5 % 4.3-6.1 368) [id number] 12:54:00 Test Item Value Reference Range Interpretation Comments MAGNESIUM (BEAKER) (test code = 2.0 mg/dL 1.6-2.6 627) COMPREHENSIVE METABOLIC [id number] 12:54:00 Test Item Value Reference Range Interpretation [...] NOT APPLICABLE FOR DIALYSIS PATIEN TS. LIPID [id number] 12:54:00 Test Item Value Reference Range Interpretation [...] 100-129 Borderline 130-159 High 160-189 Very High [id number] 12:48:00 Test Item Value Reference Range Interpretation Comments PARTIAL THROMBOPLASTIN TIME 34.6 seconds 22.5-36.0 (BEAKER) (test code = 760) PROTHROMBIN [id number] 12:47:00 Test Item Value Reference Range Interpretation [...] = 2801) CBC W/PLT COUNT & AUTO [id number] 07:06:00 Test Item Value Reference Range Interpretation [...] = 3438) Received comment: User comments: Slide comments:[id number] 06:09:00 Test Item Value Reference Range Interpretation Comments MAGNESIUM (BEAKER) (test code = 2.2 mg/dL 1.6-2.6 627) BASIC METABOLIC [id number] 06:09:00 Test Item Value Reference Range Interpretation [...] NOT APPLICABLE FOR DIALYSIS PATIEN TS. POCT-GLUCOSE [id number] 10:41:00 Test Item Value Reference Range Interpretation Comments POC-GLUCOSE METER 135 mg/dL 70-[address] [facility] 67[address] ([facility] (test code = [facility] [place] [address]) [address] RAD, CHEST, 1 VIEW, NON [id number] 05:01:00Reason for exam:->excessive coughingFINAL REPORT RAD, CHEST, 1 VIEW, NON DEPT INDICATION: excessive coughing COMPARISON: Prior day's exam FINDINGS: Portable frontal view of the chest. IMPRESSION: Support Lines: Stable. Lungs and pleura: The lungs are clear. No pleural effusion. No pneumothorax.Heart and mediastinum: Stable contours. Additional findings: None. Signed: Jeanie Corona Verified Date/Time: 05/14/2018 05:01:57 Reading Location: [address] Transitional Reading Room CALCIUM, [id number] 04:16:00 Test Item Value Reference Range Interpretation Comments CALCIUM IONIZED (BEAKER) (test 1.11 mmol/L 1.12-1.27 L code = 698) PH, BLOOD (BEAKER) (test code = 7.40 1810) [id number] 04:16:00 Test Item Value Reference Range Interpretation Comments MAGNESIUM (BEAKER) (test code = 2.2 mg/dL 1.6-2.6 627) BASIC METABOLIC [id number] 04:16:00 Test Item Value Reference Range Interpretation [...] APPLICABLE FOR DIALYSIS PATIEN TS. BLOOD GAS, [id number] 04:15:00 Test Item Value Reference Range Interpretation [...] 21.0 % CBC W/PLT COUNT & AUTO [id number] 03:49:00 Test Item Value Reference Range Interpretation [...] (BEAKER) (test code = 2801) SODIUM NA-STAT [id number] 23:50:00 Test Item Value Reference Range Interpretation Comments SODIUM (BEAKER) (test code = 381) 140 meq/L 135-148 POTASSIUM-STAT [id number] 23:50:00 Test Item Value Reference Range Interpretation Comments POTASSIUM (BEAKER) (test code = 3.8 meq/L 3.6-5.5 379) BLOOD GAS, [id number] 23:50:00 Test Item Value Reference Range Interpretation [...] (test code = 1819) 21.0 % GLUCOSE-STAT [id number] 23:50:00 Test Item Value Reference Range Interpretation Comments GLUCOSE RANDOM (BEAKER) (test code 120 mg/dL 70-110 H = 652) HGB/HCT (H&H) - STAT [id number] 23:50:00 Test Item Value Reference Range Interpretation Comments HEMOGLOBIN (BEAKER) (test code = 10.2 g/dL 13.0-16.8 L 410) HEMATOCRIT (BEAKER) (test code = 30.0 % 40.0-50.0 L 411) RAD, CHEST, 1 VIEW, NON [id number] 22:51:00Reason for exam:->central line placementFINAL REPORT Chest, [...] [place] Verified Date/Time: 05/13/2018 22:51:08 Reading Location: [address] Transitional Reading Room [id number] 19:40:00 Test Item Value Reference Range Interpretation Comments PHOSPHORUS (BEAKER) (test code = 3.0 mg/dL 2.3-4.7 604) [id number] 19:40:00 Test Item Value Reference Range Interpretation Comments MAGNESIUM (BEAKER) (test code = 1.6 mg/dL 1.6-2.6 627) BASIC METABOLIC [id number] 19:40:00 Test Item Value Reference Range Interpretation [...] APPLICABLE FOR DIALYSIS PATIEN TS. HEPATIC FUNCTION [id number] 19:40:00 Test Item Value Reference Range Interpretation [...] U/L 6-55 347) LACTIC ACID, ARTERIAL, WHOLE [id number] 19:36:00 Test Item Value Reference Range Interpretation Comments LACTATE BLOOD ARTERIAL (2) 1.2 mmol/L 0.5-2.2 (BEAKER) (test code = 2874) PROTHROMBIN [id number] 19:25:00 Test Item Value Reference Range Interpretation Comments PROTIME (BEAKER) (test code = 15.1 seconds 11.7-14.7 H 759) INR (BEAKER) (test code = 370) 1.2 <=5.9 RECOMMENDED COUMADIN/WARFARIN INR THERAPY RANGESSTANDARD DOSE: 2.0 - 3.0 Includes: PROPHYLAXIS forvenous thrombosis, systemic embolization; TREATMENT for venous thrombosis and/or pulmonary embolus.HIGH RISK: Target INR is 2.5-3.5 for patients with mechanical heart valves.PT/[id number] 19:25:00 Test Item Value Reference Range Interpretation [...] (BEAKER) (test code = 2801) BLOOD GAS, [id number] 19:12:00 Test Item Value Reference Range Interpretation [...] (test code = 1819) 33.0 % CALCIUM, [id number] 19:12:00 Test Item Value Reference Range Interpretation Comments CALCIUM IONIZED (BEAKER) (test 1.04 mmol/L 1.12-1.27 L code = 698) PH, BLOOD (BEAKER) (test code = 7.40 1810) GLUCOSE-STAT [id number] 19:12:00 Test Item Value Reference Range Interpretation Comments GLUCOSE RANDOM (BEAKER) (test code 135 mg/dL 70-110 H = 652) HGB/HCT (H&H) - STAT [id number] 19:12:00 Test Item Value Reference Range Interpretation Comments HEMOGLOBIN (BEAKER) (test code = 10.7 g/dL 13.0-16.8 L 410) HEMATOCRIT (BEAKER) (test code = 31.0 % 40.0-50.0 L 411) SODIUM NA-STAT [id number] 19:11:00 Test Item Value Reference Range Interpretation Comments SODIUM (BEAKER) (test code = 381) 137 meq/L 135-148 POTASSIUM-STAT [id number] 19:11:00 Test Item Value Reference Range Interpretation Comments POTASSIUM (BEAKER) (test code = 3.7 meq/L 3.6-5.5 379) [id number] 18:24:00 Test Item Value Reference Range Interpretation Comments ACTIVATED CLOTTING TIME 246 [address] ED [address] [facility] 67[address] (BEAKER) (test code = [place] [address]) [address] [id number] 18:24:00 Test Item Value Reference Range Interpretation Comments ACTIVATED CLOTTING TIME 175 [address] ED [address] [facility] 67[address] (BEAKER) (test code = [place] [address]) [address] BASIC METABOLIC [id number] 16:10:00 Test Item Value Reference Range Interpretation [...] S NOT APPLICABLE FOR DIALYSIS PATIEN TS. [id number] 16:04:00 Test Item Value Reference Range Interpretation Comments PARTIAL THROMBOPLASTIN TIME 34.2 seconds 22.5-36.0 (BEAKER) (test code = 760) PROTHROMBIN TIME/[id number] 16:03:00 Test Item Value Reference Range Interpretation [...] code = 2801) XR Chest 1 View [id number] 07:45:24Patient: JUDD Jr, ALIA Date/Time05/02/2018 07:40 CSTReason for ExamChest painReportHISTORY: Chest painLocation code: [id number]: CHEST X- RAY, ONE VIEWCOMPARISON: NoneCOMMENT: Frontal view of the chest is provided. Lungs are hyperinflated suggesting some COPD. No focal infiltrate, consolidation, mass lesion, or effusion is seen. Cardiac silhouette is within normal limits. No acute bony abnormalities.IMPRESSION: COPD. No acute infiltrate. Final Dictated by: Dionne Horn LDictated DT/TM: 05/02/2018 7:44 amSigned by: Dionne Horn LSigned (Electronic Signature): 05/02/2018 7:45 amLipid [id number] 19:23:00 Test Item Value Reference Range Interpretation Comments Cholesterol (test 148 mg/dL 0-200 N code = CHOL) Triglycerides (test 123 mg/dL 9-200 N code = TRIG) HDL (test code = 41 mg/dL 40-60 N HDL) Chol/HDL (test code 3.6 Ratio 0.0-5.0 N = CHOLPHDL) LDL, Calculated 82 mg/dL 0-130 N (NOTE)RISK O F HEART (test code = LDLC) DISEASEPu blished by [place] Heart AssociationAnal yte Optim al Boderline Increased RiskC HOL <200 200-239 >240TRI G <150 150-199 >200HDL Male: >60 <40HDL Female: >60 <50 LDL < 100 130-15 9 >160 LDL NEAR OPTIMAL IS 100- 129 VLDL (test code = 25 mg/dL 5-40 N VLDL) LDL/HDL (test code = 2 LDLPHDL)
--- OUTSIDE RECORDS SUMMARY | 2020-04-15 08:47 | XMS REPORT | Clinical Summary ---
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 Device Shelf Model / Identifier Expiration Serial / Date Lot Thuy Padillavt Full Strlprep 5ml [id number] - Sn/A Cement/[place] KING:BIOSCI 08/01/2019 [id number] / Implanted: Qty: 1 on 05/13/2018 at [facility] r/Adhesive N/A / [id number] Stent Excluder C3 23x14.5mmx16 [id number] - [id number] IMPLANTS N/A: BILL QUINONES & 02/11/2022 [id number] / Implanted: Qty: 1 on 04/09/2019 by Che Diego MD at [facility] Aorta ASSC:MED PRDT [id number] / Grft Excluder 14.5x14mm [id number] - [id number] IMPLANTS Left: Jaime QUINONES & 03/30/2021 [id number] / Implanted: Qty: 1 on 04/09/2019 by Che Diego MD at [facility] Iliac ASSC:MED PRDT [id number] / Patch Pericard Bovine 8x14cm [id number] - Sn/A Tissue Left: [employer] 10/10/2022 [id number] / Implanted: Qty: 1 on 05/13/2018 by Madison Lopez MD at [facility] Graft/Substi Neck TECH:SURG INNOV N/A / tute [id number] Patch Periph Vascu-Grd 0.8x8cm [id number] - [id number] Tissue [employer] 02/18/2023 [id number] / Implanted: Qty: 1 on 09/24/2018 by Madison Lopez MD at [facility] Graft/Substi TECH:SURG INNOV / tute [id number] Procedures Procedure Name Priority Date/Time Associated Diagnosis Comme nts VASCULAR DIAGRAM -SCAN 04/20/2019 5:30 PM 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
--- OUTSIDE RECORDS SUMMARY | 2020-04-15 08:54 | XMS REPORT | Continuity of Care Document ---
:1945 Author Organization 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 Take on days 1-7 in combinatio n with Cedazudrid ine. No food 2 hours before and 2 hours after dose. 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 Take 1 MD 025) 02-03 [facility] tablet Anderso cedazuridin 00:00: 04:59 syndrome [...] LEVEL 2020-03-31 12:24:00 Amarilys Montanez MD [facility] ASPARTATE AMINOTRANSFERASE 2020-03-31 12:24:00 Agustina Montanez MD URINALYSIS MICROSCOPIC 2020-03-31 12:24:00 Amarilys Montanez GAMMA GLUTAMYL TRANSFERASE 2020-03-31 12:24:00 Agustina Montanez MD ABORH 2020-03-31 12:24:00 Amarilys Montnaez MD [facility] ANTIBODY SCREEN 2020-03-31 12:24:00 [...] 2020-03-03 18:23:00 MD Feliberto Blackwell DIFFERENTIAL June [place] DIAGNOSTIC BONE MARROW 2020-03-03 15:30:00 Leonela Montanez [...] LEVEL 2020-03-03 12:18:00 Amarilys Montanez MD [facility] ALKALINE PHOSPHATASE 2020-03-03 12:18:00 Amarilys Montanez MD ALANINE AMINOTRANSFERASE 2020-03-03 12:18:00 Amarilys Montanez MD ASPARTATE AMINOTRANSFERASE 2020-03-03 12:18:00 Agustina Montanez MD TOTAL PROTEIN 2020-03-03 12:18:00 Amarilys Montanez MD [facility] FRACTIONATED BILIRUBIN 2020-03-03 12:18:00 Amarilys Montanez ABORH 2020-03-03 12:18:00 Amarilys Montanez MD [facility] Results CBC 2020-03-03 12:18:00 Amarilys Montanez MD [facility] ANTIBODY SCREEN 2020-03-03 12:18:00 Amarilys Montanez MD [facility] MANUAL DIFFERENTIAL 2020-03-03 12:18:00 Amarilys Montanez MD nderson URINALYSIS MICROSCOPIC 2020-03-03 12:18:00 Amarilys Montanez TMP INTERPRETATION ANTIBODY 2020-03-03 12:18:00 Tomas Montanez MD SCREEN NEGATIVE CLOT EXPIRATION DATE 2020-03-03 12:18:00 Amarilys Montanez MD TYPE AND SCREEN 2020-02-04 15:16:00 Amarilys Montanez MD [facility] COMPLETE BLOOD COUNT W/ 2020-02-04 15:16:00 Amarilys Montanez MD DIFFERENTIAL TOTAL PROTEIN 2020-02-04 15:16:00 Amarilys Montanez MD [facility] ALBUMIN LEVEL 2020-02-04 15:16:00 Amarilys Montanez MD [facility] CALCIUM LEVEL TOTAL 2020-02-04 15:16:00 Amarilys Montanez MD nderson PHOSPHORUS LEVEL 2020-02-04 15:16:00 Amarilys Montanez MD Duc rson GLUCOSE, RANDOM 2020-02-04 15:16:00 Amarilys Montanez MD [facility] son BLOOD UREA NITROGEN 2020-02-04 15:16:00 Amarilys Montanez MD nderson SERUM CREATININE 2020-02-04 15:16:00 Amarilys Montanez MD Duc rson URIC ACID 2020-02-04 15:16:00 Amarilys Montanez MD [facility] FRACTIONATED BILIRUBIN 2020-02-04 15:16:00 Amarilys Montanez ALKALINE PHOSPHATASE 2020-02-04 15:16:00 Amarilys Montanez MD LACTATE DEHYDROGENASE 2020-02-04 15:16:00 Amarilys Montanez MD ALANINE AMINOTRANSFERASE 2020-02-04 15:16:00 Amarilys Montanez MD ELECTROLYTE PANEL 2020-02-04 15:16:00 Amarilys Montanez MD And erson MAGNESIUM LEVEL 2020-02-04 15:16:00 [facility] ASPARTATE AMINOTRANSFERASE 2020-02-04 15:16:00 Agustina Montanez MD GAMMA GLUTAMYL TRANSFERASE 2020-02-04 15:16:00 Agustina Montanez MD URINALYSIS WITH MICROSCOPIC 2020-02-04 15:16:00 Tomas Montanez MD IF INDICATED ABORH 2020-02-04 15:16:00 Amarilys [facility]z [facility] ANTIBODY SCREEN 2020-02-04 15:16:00 Amarilys [facility]z [facility] Results CBC 2020-02-04 15:16:00 Amarilys [facility]anez [facility] MANUAL DIFFERENTIAL 2020-02-04 15:16:00 Amarilys [...] PROTEIN 2020-02-01 11:50:00 Amarilys Montanez MD [facility] ALBUMIN LEVEL 2020-02-01 11:50:00 Amarilys Montanez MD [facility] CALCIUM LEVEL TOTAL 2020-02-01 11:50:00 Amarilys Montanez MD nderson PHOSPHORUS LEVEL 2020-02-01 11:50:00 Amarilys Montanez MD Duc rson GLUCOSE, RANDOM 2020-02-01 11:50:00 Amarilys Montanez MD [facility] BLOOD UREA NITROGEN 2020-02-01 11:50:00 Amarilys Montanez MD nderson SERUM CREATININE 2020-02-01 11:50:00 Amarilys Montanez MD Duc rson URIC ACID 2020-02-01 11:50:00 Amarilys Montanez MD [facility] FRACTIONATED BILIRUBIN 2020-02-01 11:50:00 Amarilys Montanez ALKALINE PHOSPHATASE 2020-02-01 11:50:00 Amarilys Montanez MD LACTATE DEHYDROGENASE 2020-02-01 11:50:00 Amarilys Montanez MD ALANINE AMINOTRANSFERASE 2020-02-01 11:50:00 Amarilys Montanez MD ELECTROLYTE PANEL 2020-02-01 11:50:00 Amarilys Montanez MD And erson MAGNESIUM LEVEL 2020-02-01 11:50:00 Amarilys Montanez MD [facility] son ABORH 2020-02-01 11:50:00 Amarilys Montanez MD [facility] ANTIBODY SCREEN 2020-02-01 11:50:00 Amarilys Montanez MD [facility] Results CBC 2020-02-01 11:50:00 Amarilys Montanez MD [facility] MANUAL DIFFERENTIAL 2020-02-01 11:50:00 Amarilys Montanez MD nderson SERUM CREATININE 2020-02-01 11:50:00 Amarilys Montanez MD Duc [facility]son .GLOMERULAR FILTRATION RATE 2020-02-01 11:50:00 Tomas Montanez MD TMP INTERPRETATION ANTIBODY 2020-02-01 11:50:00 Tomas Montanez MD SCREEN NEGATIVE CLOT EXPIRATION DATE 2020-02-01 11:50:00 Amarilys Montanez MD TYPE AND SCREEN 2020-01-27 12:33:00 Amarilys Montanez MD [facility] COMPLETE BLOOD COUNT W/ 2020-01-27 12:33:00 Amarilys Montanez MD DIFFERENTIAL TOTAL PROTEIN 2020-01-27 12:33:00 Amarilys Montanez MD [facility] ALBUMIN LEVEL 2020-01-27 12:33:00 Amarilys Montanez MD [facility] CALCIUM LEVEL TOTAL 2020-01-27 12:33:00 Amarilys Montanez MD nderson PHOSPHORUS LEVEL 2020-01-27 12:33:00 Amarilys Montanez MD Duc rson GLUCOSE, RANDOM 2020-01-27 12:33:00 Amarilys Montanez MD [facility] BLOOD UREA NITROGEN 2020-01-27 12:33:00 Amarilys Montanez MD nderson SERUM CREATININE 2020-01-27 12:33:00 Amarilys Montanez MD Duc rson URIC ACID 2020-01-27 12:33:00 Amarilys Montanez MD [facility] FRACTIONATED BILIRUBIN 2020-01-27 12:33:00 Amarilys Montanez ALKALINE PHOSPHATASE 2020-01-27 12:33:00 Amarilys Montanez MD LACTATE DEHYDROGENASE 2020-01-27 12:33:00 Amarilys Montanez MD ALANINE AMINOTRANSFERASE 2020-01-27 12:33:00 Amarilys Montanez MD ELECTROLYTE PANEL 2020-01-27 12:33:00 Amarilys Montanez MD And erson MAGNESIUM LEVEL 2020-01-27 12:33:00 Amarilys Montanez MD [facility] ABORH 2020-01-27 12:33:00 Amarilys Montanez MD [facility] ANTIBODY SCREEN 2020-01-27 12:33:00 Amarilys [...] LEVEL TOTAL 2020-01-21 12:29: Mervat Mercer MD [facility] PHOSPHORUS LEVEL 2020-01-21 12::00 Mervat Mercer MD GLUCOSE, RANDOM 2020-01-21 12:: Mervat Mercer MD BLOOD UREA NITROGEN 2020-01-21 12:29:00 Mervat Mercer MD [facility] SERUM CREATININE 2020-01-21 12:29:00 Mervat Mercer MD [...] CBC 2020-01-18 11:49:00 Amarilys Montanez MD [facility] MANUAL DIFFERENTIAL 2020-01-18 11:49:00 Amarilys Montanez MD nderson ABORH 2020-01-18 11:49:00 Amarilys Montanez MD [facility] ANTIBODY SCREEN 2020-01-18 11:49:00 Amarilys Montanez MD [facility] TMP INTERPRETATION ANTIBODY 2020-01-18 11:49:00 Tomas Montanez MD SCREEN NEGATIVE CLOT EXPIRATION DATE 2020-01-18 11:49:00 Amarilys Montanez MD TYPE AND SCREEN 2020-01-14 12:41:00 Amarilys Montanez MD [facility] COMPLETE BLOOD COUNT W/ 2020-01-14 12:41:00 Amarilys Montanez MD DIFFERENTIAL TOTAL PROTEIN 2020-01-14 12:41:00 Amarilys Montanez MD [facility] ALBUMIN LEVEL 2020-01-14 12:41:00 Amarilys Montanez MD [facility] CALCIUM LEVEL TOTAL 2020-01-14 12:41:00 Amarilys Montanez MD nderson PHOSPHORUS LEVEL 2020-01-14 12:41:00 Amarilys Montanez MD [facility] GLUCOSE, RANDOM 2020-01-14 12:41:00 Amarilys Montanez MD [facility] BLOOD UREA NITROGEN 2020-01-14 12:41:00 Amarilys Montanez MD nderson SERUM CREATININE 2020-01-14 12:41:00 Amarilys Montanez MD Duc [facility]son URIC ACID 2020-01-14 12:41:00 Amarilys Montanez MD [facility] son FRACTIONATED BILIRUBIN 2020-01-14 12:41:00 Amarilys Montanez ALKALINE PHOSPHATASE 2020-01-14 12:41:00 Amarilys Montanez MD LACTATE DEHYDROGENASE 2020-01-14 12:41:00 Amarilys Motnanez MD ALANINE AMINOTRANSFERASE 2020-01-14 12:41:00 Amarilys Montanez MD ELECTROLYTE PANEL 2020-01-14 12:41:00 Amarilys Montanez MD And erson MAGNESIUM LEVEL 2020-01-14 12:41:00 [facility] AB[facility]H 2020-01-14 12:41:00 Amarilys Montanez MD [facility] ANTIBODY SCREEN 2020-01-14 12:41:00 Amarilys Montanez MD [facility] Results CBC 2020-01-14 12:41:00 Amarilys Montanez MD [facility] MANUAL DIFFERENTIAL 2020-01-14 12:41:00 Amarilys Montanez MD nderson SERUM CREATININE 2020-01-14 12:41:00 Amarilys Montanez MD [facility] .GLOMERULAR FILTRATION RATE 2020-01-14 12:41:00 Tomas Montanez MD CLOT EXPIRATION DATE 2020-01-14 12:41:00 Amarilys Montanez MD TMP INTERPRETATION ANTIBODY 2020-01-14 12:41:00 Tomas Montanez MD SCREEN NEGATIVE TYPE AND SCREEN 2020-01-11 13:31:00 Amarilys Montanez MD [facility] COMPLETE BLOOD COUNT W/ 2020-01-11 13:31:00 Amarilys Montanez MD DIFFERENTIAL TOTAL PROTEIN 2020-01-11 13:31:00 Amarilys Montanez MD [facility] ALBUMIN LEVEL 2020-01-11 13:31:00 Amarilys Montanez MD [facility] CALCIUM LEVEL TOTAL 2020-01-11 13:31:00 Amarilys Montanez MD nderson PHOSPHORUS LEVEL 2020-01-11 13:31:00 Amarilys Montanez MD Duc [facility] GLUCOSE, RANDOM 2020-01-11 13:31:00 Amarilys Montanez MD [facility] BLOOD UREA NITROGEN 2020-01-11 13:31:00 Amarilys Montanez [...] son ABORH 2020-01-11 13:31:00 Amarilys Montanez MD [facility] ANTIBODY SCREEN 2020-01-11 13:31:00 Amarilys Montanez MD [facility] Results CBC 2020-01-11 13:31:00 Amarilys Montanez MD [facility] MANUAL DIFFERENTIAL 2020-01-11 13:31:00 Amarilys Montanez MD [...] PROTEIN 2020-01-07 12:44:00 Amarilys Montanez MD [facility] ALBUMIN LEVEL 2020-01-07 12:44:00 Amarilys Montanez MD [facility] son CALCIUM LEVEL TOTAL 2020-01-07 12:44:00 Amarilys Montanez MD nderson PHOSPHORUS LEVEL 2020-01-07 12:44:00 Amarilys Montanez MD Duc rson GLUCOSE, RANDOM 2020-01-07 12:44:00 Amarilys Montanez MD [facility] BLOOD UREA NITROGEN 2020-01-07 12:44:00 Amarilys Montanez MD nderson SERUM CREATININE 2020-01-07 12:44:00 Amarilys Montanez MD [facility] URIC ACID 2020-01-07 12:44:00 Amarilys Montanez MD [facility] FRACTIONATED BILIRUBIN 2020-01-07 12:44:00 Amarilys Montanez ALKALINE PHOSPHATASE 2020-01-07 12:44:00 Amarilys Montanez MD LACTATE DEHYDROGENASE 2020-01-07 12:44:00 Amarilys Montanez MD ALANINE AMINOTRANSFERASE 2020-01-07 12:44:00 Amarilys Montanez MD ELECTROLYTE PANEL 2020-01-07 12:44:00 Amarilys Montanez MD And erson MAGNESIUM LEVEL 2020-01-07 12:44:00 Amarilys Montanez MD [facility] GLUCOSE LEVEL 2020-01-07 12:44:00 MD Feliberto Blackwell [...] 2019-12-14 20:22:00 MD Feliberto Blackwell INTERPRETATION June [place] DIAGNOSTIC BONE MARROW 2019-12-14 19:00:00 Leonela Montanez [...] URIC ACID 2019-12-14 14:46:00 Amarilys Montanez MD [facility] FRACTIONATED BILIRUBIN 2019-12-14 14:46:00 Amarilys Montanez ALKALINE PHOSPHATASE 2019-12-14 14:46:00 Amarilys Montanez MD LACTATE DEHYDROGENASE 2019-12-14 14:46:00 Amarilys Montanez MD ALANINE AMINOTRANSFERASE 2019-12-14 14:46:00 Amarilys Montanez MD ELECTROLYTE PANEL 2019-12-14 14:46:00 Amarilys Montanez MD And erson MAGNESIUM LEVEL 2019-12-14 14:46:00 Amarilys Montanez MD [facility] PERIPHERAL SMEAR FOR BONE 2019-12-14 14:46:00 Leonela Montanez MD MARROW ABORH 2019-12-14 14:46:00 Amarilys Montanez MD [facility] ANTIBODY SCREEN 2019-12-14 14:46:00 Amarilys Montanez MD [facility] Results CBC 2019-12-14 14:46:00 Amarilys Montanez MD [facility] MANUAL DIFFERENTIAL 2019-12-14 14:46:00 Amarilys Montanez MD nderson SERUM CREATININE 2019-12-14 14:46:00 Amarilys Montanez MD [facility] .GLOMERULAR FILTRATION RATE 2019-12-14 14:46:00 Tomas Montanez MD CLOT EXPIRATION DATE 2019-12-14 14:46:00 Amarilys Montanez MD TMP INTERPRETATION ANTIBODY 2019-12-14 14:46:00 Tomas Montanez MD SCREEN NEGATIVE TOTAL PROTEIN 2019-12-10 16:26:00 Amarilys Montanez MD [facility] ALBUMIN LEVEL 2019-12-10 16:26:00 Amarilys Montanez MD [facility] CALCIUM LEVEL TOTAL 2019-12-10 16:26:00 Amarilys Montanez [...] PRO BNP 2019-12-10 16:26:00 Amarilys Montanez MD [facility] TYPE AND SCREEN 2019-12-10 16:26:00 Amarilys Montanez MD [facility] HEPATITIS B CORE ANTIBODY 2019-12-10 16:26:00 Leonela [...] 2019-12-10 16:26:00 Amarilys Montanez MD And erson [id number] SERUM CREATININE 2019-12-10 16:26:00 Amarilys Montanez MD [...] Provider, Yari [facility] - Sc[facility] Plan of Care Planned Activity Planned Date Details Comments Source Future Scheduled 2020-02-[address] [facility] - Test 00:00:00 (#1) [code = [facility] INFLUENZA VACCINE (#1)] Future Scheduled 2012-03-[address] [facility] 00:[facility]:00 WELLNESS (YEAR [facility] or [facility] FIRST YEAR if no IPPE) [code = MEDICARE ANNUAL WELLNESS (YEAR 2 or FIRST YEAR if no IPPE)] Future Scheduled [address] [facility]:00:00 malignant neoplasm Medical C enter of colon (procedure) [code = 905492675] Encounters Start End Encounter Admission Attending Care Care Encounter Source Date/Time Date/Time Type Type Clinicians Facility Department ID 2020-02-15 Outpatient SYSTEM, CARLOS GONZALEZ [id number] 11:42:17 FABRIZIO apple 2020-01-04 Outpatient CARLOS GONZALEZ [id number] 15:51:33 Chavez apple 2019-12-22 Outpatient MELBA ZAMORA MDA MDA [id number] 11:07:13 RAFAEL apple 2019-11-26 Outpatient SYSTEM, CARLOS GONZALEZ [id number] 12:31:31 PROVIDER Haroldo apple 2020-04-14 2020-04-14 Outpatient EL VALENTE GONZALEZ MDA [id number] 11:50:34 13:50:14 Haroldo PRUITT 2020-04-14 2020-04-14 Outpatient MELBA BOLAÑOSESECARLOS MDA [id number] 11:49:38 11:49:38 MERVAT apple 2020-03-31 2020-03-31 Outpatient MELBA MONTANEZ MDA MDA [id number] 07:14:23 23:59:00 AMARILYS whalen n 2020-03-31 2020-03-31 Outpatient EL MAY MDA MDA [id number] 07:36:38 07:36:38 Haroldo PRUITT JUNE n 2020-03-03 2020-03-03 Outpatient MELBA MONTANEZ, MDA MDA [id number] 10:30:00 23:59:00 AMARILYS [place] so zechariah 2020-03-03 2020-03-03 Outpatient EL MAY MDA MDA [id number] 07:25:25 11:54:16 Haroldo PRUITT JUNE n 2020-03-03 2020-03-03 Outpatient MELBA MONTANEZ, MDA MDA [id number] 07:11:53 10:29:00 AMARILYS apple 2020-03-03 2020-03-03 Outpatient EL MAY MDA MDA [id number] 07:33:17 07:33:17 Haroldo PRUITT JUNE n 2020-02-15 2020-02-15 Outpatient EL MAY MDA MDA [id number] 00:00:00 00:00:00 Haroldo PRUITT JUNE n 2020-02-15 2020-02-15 Outpatient EL MAY MDA MDA [id number] 00:00:00 00:00:00 Haroldo PRUITT JUNE n 2020-02-11 2020-02-11 Outpatient EL MAY MDA MDA [id number] 00:00:00 00:00:00 Haroldo PRUITT JUNE n 2020-02-11 2020-02-11 Outpatient EL MAY MDA MDA [id number] 00:00:00 00:00:00 Haroldo PRUITT JUNE n 2020-02-04 2020-02-04 Outpatient EL MAY MDA MDA [id number] 07:30:00 23:59:00 Haroldo PRUITT JUNE n 2020-02-04 2020-02-04 Outpatient EL MAY MDA MDA [id number] 13:01:22 13:01:22 Haroldo PRUITT JUNE n 2020-02-04 2020-02-04 Outpatient EL MAY MDA MDA [id number] MD 09:47:29 11:23:48 Haroldo PRUITT JUNE n 2020-02-04 2020-02-04 Outpatient EL MAY MDA MDA [id number] 00:00:00 00:00:00 Haroldo PRUITT JUNE n 2020-02-01 2020-02-01 Outpatient EL SALVATORA, MDA MDA [id number] MD 06:44:58 23:59:00 AMARILYS [place] so n 2020-02-01 2020-02-01 Outpatient EL SALVATORA, MDA MDA [id number] MD 06:44:46 06:44:46 AMARILYS [place] so n 2020-02-01 2020-02-01 Outpatient EL MAY MDA MDA [id number] 00:00:00 00:00:00 Haroldo PRUITT 2020-02-01 2020-02-01 Outpatient EL MAY MDA MDA [id number] 00:00:00 00:00:00 Haroldo PRUITT 2020-01-29 2020-01-29 Outpatient EL MAY MDA MDA [id number] 00:00:00 00:00:00 Haroldo PRUITT JUNE n 2020-01-28 2020-01-28 Outpatient EL MAY MDA MDA [id number] 00:00:00 00:00:00 Haroldo PRUITT JUNE n 2020-01-28 2020-01-28 Outpatient EL MAY MDA MDA [id number] 00:00:00 00:00:00 Haroldo PRUITT JUNE n 2020-01-28 2020-01-28 Outpatient EL MAY MDA MDA [id number] 00:00:00 00:00:00 Haroldo PRUITT JUNE n 2020-01-27 2020-01-27 Outpatient EL SALVATORA, MDA MDA [id number] MD 07:21:52 23:59:00 AMARILYS [place] so n 2020-01-27 2020-01-27 Outpatient EL SALVATORA, MDA MDA [id number] 07:38:46 07:38:46 AMARILYS [place] so n 2020-01-27 2020-01-27 Outpatient EL MAY MDA MDA [id number] 07:21:31 07:21:31 Haroldo PRUITT JUNE n 2020-01-26 2020-01-26 Outpatient EL MAY MDA MDA [id number] 06:51:19 23:59:00 Haroldo PRUITT JUNE n 2020-01-25 2020-01-25 [facility] [id number] 06:39:14 23:59:00 AMARILYS [place] so n 2020-01-25 2020-01-25 [facility] MDA [id number] 06:39:01 06:39:01 AMARILYS [place] so n 2020-01-25 2020-01-25 Outpatient EL MAY MDA MDA [id number] 00:00:00 00:00:00 Haroldo PRUITT JUNE n 2020-01-25 2020-01-25 [facility] [id number] 00:00:00 00:00:00 Haroldo PRUITT JUNE n 2020-01-21 2020-01-21 [facility] [id number] MD 07:24:30 23:59:00 MERVAT wylie n 2020-01-21 2020-01-21 [facility] [id number] MD 07:43:33 07:43:33 MERVAT apple 2020-01-21 2020-01-21 [facility] MDA [id number] MD 07:24:47 07:24:47 Haroldo PRUITT JUNE n 2020-01-21 2020-01-21 [facility] MDA [id number] 00:00:00 00:00:00 Haroldo PRUITT JUNE n 2020-01-21 2020-01-21 Outpatient EL MAY MDA MDA [id number] 00:00:00 00:00:00 Haroldo PRUITT JUNE n 2020-01-18 2020-01-18 [facility] MDA [id number] 06:44:06 23:59:00 AMARILYS [place] so n 2020-01-18 2020-01-18 [facility] MDA [id number] 06:43:55 06:43:55 AMARILYS [place] so n 2020-01-18 2020-01-18 Outpatient EL MAY MDA MDA [id number] 00:00:00 00:00:00 Haroldo PRUITT JUNE n 2020-01-18 2020-01-18 Outpatient EL MAY MDA MDA [id number] 00:00:00 00:00:00 Haroldo PRUITT JUNE n 2020-01-14 2020-01-14 Outpatient EL MAY MDA MDA [id number] 07:12:49 23:59:00 Haroldo PRUITT JUNE n 2020-01-14 2020-01-14 Outpatient EL MAY MDA MDA [id number] 08:48:08 08:48:08 Haroldo PRUITT JUNE n 2020-01-14 2020-01-14 Outpatient EL MAY MDA MDA [id number] 07:42:35 07:42:35 Haroldo PRUITT JUNE n 2020-01-14 2020-01-14 Outpatient EL MAY MDA MDA [id number] 07:12:35 07:12:35 Haroldo PRUITT JUNE n 2020-01-13 2020-01-13 Outpatient EL MAY MDA MDA [id number] 07:05:08 23:59:00 Haroldo PRUITT JUNE n 2020-01-13 2020-01-13 [facility] MDA [id number] 07:32:19 07:32:19 Haroldo PRUITT JUNE n 2020-01-11 2020-01-11 Outpatient [facility], MDA MDA [id number] 10:02:52 13:20:01 GREG wylie n 2020-01-11 2020-01-11 [facility] MDA [id number] 08:57:34 09:48:53 AMARILYS apple 2020-01-11 2020-01-11 Out[facility] MDA MDA [id number] 08:31:21 08:49:52 AMARILYS apple 2020-01-11 2020-01-11 Outpatient EL MAY MDA MDA [id number] 00:00:00 00:00:00 Haroldo PRUITT JUNE n 2020-01-11 2020-01-11 Outpatient [facility] MDA MDA [id number] 00:00:00 00:00:00 Haroldo PRUITT JUNE n 2020-01-08 2020-01-08 Outpatient [facility] MDA MDA [id number] 07:16:35 07:16:35 Haroldo PRUITT JUNE n 2020-01-07 2020-01-07 Outpatient [facility], MDA MDA [id number] 07:27:22 23:59:00 AMARILYS [place] so zechariah 2020-01-07 2020-01-07 Outpatient [facility] MDA MDA [id number] 08:53:53 08:53:53 Haroldo PRUITT JUNE n 2020-01-07 2020-01-07 Outpatient [facility], MDA MDA [id number] 08:05:30 08:05:30 AMARILYS [place] so n 2020-01-07 2020-01-07 Outpatient [facility] MDA MDA [id number] 07:26:26 07:26:26 Haroldo PRUITT JUNE n 2020-01-07 2020-01-07 Outpatient [facility] MDA MDA [id number] 07:15:00 07:26:00 Haroldo PRUITT JUNE n 2020-01-07 2020-01-07 Outpatient [facility] MDA MDA [id number] 06:52:32 07:14:00 Haroldo PRUITT JUNE n 2020-01-05 2020-01-05 Outpatient [facility] MDA MDA [id number] 07:37:32 23:59:00 Haroldo PRUITT JUNE n 2020-01-05 2020-01-05 [facility] [id number] 07:37:48 07:37:48 Haroldo PRUITT JUNE n 2020-01-05 2020-01-05 [facility] [id number] 07:01:56 07:36:00 Haroldo PRUITT JUNE n 2020-01-04 2020-01-04 Outpatient [facility], MDA MDA [id number] 12:55:40 23:59:00 AMARILYS [place] so zechariah 2020-01-04 2020-01-04 Outpatient EL MAY MDA MDA [id number] 13:20:42 13:20:42 Haroldo PRUITT JUNE n 2019-12-29 2019-12-29 Outpatient [facility], MDA MDA [id number] 06:48:03 23:59:00 AMARILYS Alvareser so n 2019-12-29 2019-12-29 Outpatient EL MAY MDA MDA [id number] 07:43:41 07:43:41 Haroldo PRUITT JUNE n 2019-12-29 2019-12-29 Outpatient [facility], MDA MDA [id number] 00:00:00 00:00:00 AMARILYS [place] so n 2019-12-29 2019-12-29 Outpatient EL MAY MDA MDA [id number] 00:00:00 00:00:00 Haroldo PRUITT JUNE n 2019-12-24 2019-12-24 Outpatient EL [facility], MDA MDA [id number] 16:25:48 23:59:00 AMARILYS Alvareser so n 2019-12-24 2019-12-24 Outpatient EL MAY MDA MDA [id number] 12:50:38 16:58:36 Haroldo PRUITT JUNE n 2019-12-24 2019-12-24 Outpatient EL [facility], MDA MDA [id number] 12:27:52 16:24:00 AMARILYS Alvareser so n 2019-12-23 2019-12-23 Outpatient [facility] MDA MDA [id number] 07:26:00 23:59:00 Haroldo ANAND SERINA n 2019-12-14 2019-12-14 Outpatient [facility], MDA MDA [id number] 14:00:00 23:59:00 AMARILYS [place] so n 2019-12-14 2019-12-14 Outpatient [facility], MDA MDA [id number] MD 11:46:16 13:59:00 EDGAR mayen n 2019-12-14 2019-12-14 Outpatient EL MAY MDA MDA [id number] 11:51:42 11:51:42 Haroldo PRUITT JUNE n 2019-12-14 2019-12-14 Outpatient MELBA PENG, MDA MDA [id number] 10:03:00 11:45:00 Carolina apple 2019-12-14 2019-12-14 Outpatient MELBA MONTANEZ, MDA MDA [id number] 09:25:53 10:02:00 AMARILYS apple 2019-12-14 2019-12-14 Outpatient MELBA MONTANEZ MDA MDA [id number] 09:26:08 09:26:08 AMARILYS apple 2019-12-10 2019-12-10 Outpatient MELBA MONTANEZ, MDA MDA [id number] 11:12:14 23:59:00 AMARILYS apple 2019-12-10 2019-12-10 Outpatient MAY MDA MDA [id number] MD 09:31:49 15:36:51 Haroldo PRUITT 2019-12-10 2019-12-10 Outpatient MAY MDA MDA [id number] 09:31:21 09:31:21 Haroldo PRUITT 2019-12-10 2019-12-10 Outpatient MDA MDA [id number] 09:11:05 09:11:05 Haroldo apple 2019-12-10 2019-12-10 Outpatient MELBA MONTANEZ, MDA MDA [id number] 00:00:00 00:00:00 AMARILYS apple 2019-12-08 2019-12-08 Outpatient VALENTE MDA MDA [id number] 06:55:55 06:55:55 Haroldo PRUITT 2019-12-08 2019-12-08 Outpatient MAY MDA MDA [id number] 00:00:00 00:00:00 Haroldo PRUITT 2017-04-24 2017-04-24 [facility] MED [id number] . 18:23:00 18:23:00 [facility] Results Test Description Test Time Test Comments Results Result Comments Source TMP Interpretation Antibody Screen Negative 2020-04-15 02:02 :55 Test Item Value Reference Range Interpretation Comme nts TMP Auto At the present MADINA Neg ABSC time, patient NAVDEEP PEPPER MD - [id number] by: MADINA PEPPER MD - [place] no [id number] d Date/Time: 04.14.2020 20:02 PM VICE PRESIDENT SAFETY (test evidence of RBC Transcribed Date/Time: 04.14.2020 20:02 PM code = alloantibodies. CSTElectroni galileo Signed By: MD Frank SNELL [id number] on 7535) 04.14.2020 20:0 2 PM MD DaoTMP Interpretation Iiwbvflzol8036-68-53 02:02:54 Test Item Value Reference Range Interpretation Comments TMP XM Interp RBC units (test code = crossmatched for 7566) transfusion appear NAHUM PEPPER MD acceptable. - [id number] by: MD Frank SNELL [id number] Date/Time: 04.03 20:02 PM VICE PRESIDENT SAFETY Transcribed Ian e/Time: 04.14.2020 20:0 2 PM CSTElectronical ly Signed By: MD Frank PELAYO [id number] on 04.14.2020 20:0 2 PM MD DaoWugrdufqSbokjvjglglw2969-12-37 22:34:31 Test Item Value Reference Range Interpretation [...] PLT Morph (test code = Normal Normal 88876-0) Anisocytosis (test code Present Not Present A = 4811) Poik (test code = 6840) Present Not Present A Tear Drop (test code = Present Not Present A 7602) Macrocyte (test code = Present Not Present A 6358) Lab Interpretation Abnormal (test code = 37240-8) MD Dao.OZE6551-64-37 22:34:28 Test Item Value Reference Range Interpretation [...] (test code = 64.6 fL 35.1-46.3 H 78797-2) RDW-CV (test code = 17.8 % 12-15.5 [...] differential. Lab Interpretation Abnormal (test code = 08661-2) MD DaoPrepare RBC:atc main, 1 Cnhby4222-77-79 20:57:15 Test Item Value Reference Range Interpretation Comments PRBC Product 1 Red Blood Cells Ready (test code Available - Order = [id number]) Form 03 when re caitlyn for product iss ue. GUILLAUME (test code = Does the Patient GUILLAUME) have a Current Signed Informed Consent for Blood Component Transfusion?->Yes MD DaoRrwrkpjiUKMCf9058-95-19 20:35:01 Test Item Value Reference Range Interpretation Comments ABORh. (test code = 882-1) A POS MD DaoClot Expiration Jxob3926-57-74 20:34:30 Test Item Value Reference Range Interpretation Comments T & S Expiration (test code = 04/17/2020 5318) MD DaoAntibody Ixvhjs9634-40-20 20:32:05 Test Item Value Reference Range Interpretation Comments ABSC. (test code = 890-4) Negative ABSC MD DaoUrinalysis with Imxldkbxwfm7888-90-61 19:57:33 Test Item Value Reference Range Interpretation [...] implementation of new instrumentation in the [facility], allowing greater sensitivity of measurement. Urinalysis results reported by the [facility] using existing instrumentation, as well as Urinalysis testing performed manually or by backup methodology at the [facility] will remain relatively unchanged. New reporting parameters and units will now be reported for all campuses. MD DaoUrinalysis w/Microscopic if Tnpmxtwjx5827-54-18 19:55:14 Test Item Value Reference Range Interpretation [...] NEG Lab Interpretation (test code = Abnormal 87964-0) MD DaoFractionated Qbggmruou6188-95-30 19:02:32 Test Item Value Reference Range Interpretation [...] outside rep ortable range MD DaoGlomerular Filtration Lduk0332-72-67 19:02:30 Test Item Value Reference Range Interpretation [...] sed GFR 15-295 Kidney failure <15 MD DaoOkxqijzfPSE6598-55-13 19:02:29 Test Item Value Reference Range Interpretation [...] conjunction wit h clinical context. MD DaoAlkaline Tukacfpfxuj2307-24-54 19:02:28 Test Item Value Reference Range Interpretation Comments Alk Phos (test code = 4768) 86 U/L 40-129 MD DaoAlbumin Miumu3460-23-30 19:02:27 Test Item Value Reference Range Interpretation Comments Albumin Lvl (test code = 4763) 4.1 3.5- 5.2 gm/dL MD DaoAspartate Cktboeyhpjsidvvz6187-99-76 19:02:25 Test Item Value Reference Range Interpretation Comments AST (test code = 4731) 19 U/L <=40 MD DaoGlucose, Yacffb8400-26-56 19:02:24 Test Item Value Reference Range Interpretation Comments Glucose Random (test 121 mg/dL 70-199 Effecti ve 12/28/15, the code = 9360) glucose referen ce intervals have been updated based o n [place] [employer] [place] (Standards of [...] with increased risk for diabetes MD DaoElectrolyte Pvtew5186-88-93 19:02:23 Test Item Value Reference Range Interpretation Comments Sodium Lvl (test code = 7355) 137 136- 145 mEq/L Potassium Lvl (test code = 6854) 4.4 3.5- 5.1 mEq/L Chloride (test code = 5279) 104 98- 107 mEq/L CO2 (test code = 5227) 24 22- 29 mEq/L Anion Gap (test code = 9325) 9 4- 14 mEq/L MD DaoUric Pheh9309-14-63 19:02:22 Test Item Value Reference Range Interpretation Comments Uric Acid (test code = 7955) 4.8 mg/dL 3.4-7 MD Dao.Serum Wlfostited9943-65-82 19:02:21 Test Item Value Reference Range Interpretation Comments Creatinine (test code = 5399) 1.13 mg/dL 0.67-1.17 MD DaoTotal Qdbxhlx7653-48-05 19:02:20 Test Item Value Reference Range Interpretation Comments Total Protein (test code = 7649) 6.6 g/dL 6.4-8.3 MD DaoPhosphorus Mjytl2378-19-13 19:02:19 Test Item Value Reference Range Interpretation Comments Phosphorus (test code = 6817) 3.4 mg/dL 2.5-4.5 MD DaoFirmiywnJWP1738-12-41 19:02:18 Test Item Value Reference Range Interpretation Comments GGT (test code = 5647) 22 U/L 8-61 MD DaoCalcium Ysisq8995-33-41 19:02:16 Test Item Value Reference Range Interpretation Comments Calcium Lvl (test code = 5258) 8.9 mg/dL 8.4-10.2 AshkumAlanine Fxzxedqhodlbiabc4119-49-62 19:02:15 Test Item Value Reference Range Interpretation Comments ALT (test code = 4705) 9 U/L <=41 [facility] Agnaf0384[facility]-15 19:02:14 Test Item Value Reference Range Interpretation Comments Magnesium (test code = 6359) 1.9 mg/dL 1.6-2.6 [facility] HospitalSdaxvcpsYFW3170-27-12 19:02:13 Test Item Value Reference Range Interpretation Comments BUN (test code = 5055) 13 mg/dL 6-23 [facility] Hospital[facility] Marrow Vrgvfadarmud1455-32-34 15:44:00 Test Item Value Reference Range Interpretation [...] may have been completed by a medical assistant supervisor and is subject to change. Any pathologist updates will be included on interpretation and appear in the final result. Please use caution in evaluating your patient based on preliminary results. Lab Interpretation Abnormal (test code = 05314-8) MD DaoHematopathology Bone Marrow Eolpwcnghxcqfp1679-66-95 15:43:00 Test Item Value Reference Range Interpretation Comments Diagnosis (test code = 34) x6hgxJImBQFtxLF2CLH hKELsz3rpr7XwjIFgaN IiYYggtZDzxaOxan11i PC0rQ55WB8lTUWtFlP2 OSYhxdZ4Daq0EEKxPWJ lhZEcK065h4nuk2hsgb ZvhUN2tPyeHCDwFSxiM VxyaTFcbGluMVxwbGFp blxmczIwIEJvbmUgbWF ala04OEMwu0M3XSJwq9 HioVakOWVrC3Kew5HoZ HQes7XgoEhhC3vfeGCv ZSK8sX8fWJLng4TaifW 0ZSBzbWVhcnMsIGFuZC R5i5MijBPkojByZNOtl MsfurnrkTXyER1qsLIh IL9tfpi+QB9qmvl+XH5 cflx+RT9btuYKVEFHBN TUQZ5DNFJNJb8PXSHhZ ReRQZ1DR55NW0bCHEDn YZJNS6DKEIWkVFSoHBS OHLQUJoOZHgXHD9FHOm FURSBTTUVBUlMgKHNlZ BUgp14cZO26IR3dsWMx fQ== Comment (test code = 9835) s4jklGYkKNTceJJ8FEQ kQSOvj6uvf7MstSSstL GpUMqfnLDefuPjfd29w UM2eZ28WE9dTEEdTdG9 ZEJxsjO0Lea3LAKfHQT hrPQuK256g6szo8iier SrbMN2KZZnBIV2VJzey hQqqhF0PRtixGDpKiB9 S91owMEhSJlefARleyj pazSaBLJgV1JzOLVrYJ BlciBjbGluaWNhbCBub 3RlcywgdGhlIHBhdGll itVwiSOvGNE1OiD3ooV wETmlIDmoiJopG77XGU wgYmVpbmcgdHJlYXRlZ OS7lCUdDLP4ORXhfOvu sQ0hQQTpOBXjGQOqrcU yaWRpbmUuXHBhclxwYX EjfDjfMSKfNZdtdH0bR HVlF2FhTRSdDOPymtFv kSE5iX8oNGoyuSpuHY0 awOkjDOY1FTT7oDO9SK Tah1IzsWOjlIYkytYdm 14pUJ7sHQGvDa4cMAKa qIGnGPLqYNM2CZz6WVV rq11xEOMrsh9= Microscopic Description j2jjzUJiWNPpeHD0RFA (test code = 9865) lUTGob4uue5DyqIIzuE HoGIgxxDDyjbMsuu28o RK4fJ78QW9aPPFjPcY2 OACvodB2Ymi6SQMkYGR xpNEoI514j1xyf7czvp BciMU0RKEdWIFgR0JpB X7iAGLngNPqOGI4TQMp ZDIyOVxncmVlbjIyOVx ltPGyTjG5L18jpVOmVS xsaTFccmkxXGxpbjFcc MwsxY9rFcwwebNjRYAo KGkkyIWraYN4DcRYLAU VIXiNTaWQSTWUW83LLX x+D80ZLQQliOPwXFDqI JAwADemkFIpwBN0TAg+ XHBhciBSQkNzOiBcflx +OP8niuf+SH5xwie+XH 5cflx+TE7kWJEcrb0zc KKiOghyvr5sgW5jvSQy xWtvODFyCZ2aKTvuf8o 0aCBtaWxkIGFuaXNvcG 1rd1gdn3U3lL1nnECdO HBhciBXQkNzOiBcflx+ QF2icms+IF9uozl+XH5 cflx+TMNtQVE5QJHdHB syqQuiPNItk2j0fBAcz Z7rh8Y9mQ5oqBDuNA1z XJIduvB7vTV6sM8cUBG cYHH4pqTjviPom0Pzhr 3kUYNfugDBlVJ3CPnpy HM6IFx+RB5xtcd+XH5c flx+UQ6lDGskx45ir2X 9sF0eIK4bQW7adEMdZF 5ttFOmLKBtS0NpCDZiW 2JwYXQyIEJPTkUgTUFS Vx9IVVHDA5MkpLHdECQ hEHQlCRutrBLqsQG3AN x+SVXeftVMiMMpxZS2M lx+ML1fglk+MT3iruv+ LQ3kfkn+LA8cvyb+XH5 cflx+GQ5bxja+XH5cfl x+HT7wCFWdpMYmfOLoH HBhciBDZWxsdWxhcml0 eTpcflx+IA0emre+XH5 cflx+ND6pcem+XH5cfl x+LO1kcir+OZ7angY9Z ZPsYE2udid+KV1vakOp flxwYXIgTWVnYWthcnl cW4e7VZV0BYe+XH5cfl x+VM0zqgg+VH3yYHTwh YVrxON2NBP1w0CqHPI3 wZDwRQrwCZWgBK8djTs 5jlG3YXzyrhi+XH5cfl x+SN3qpif+AR0qlui+X H5cflx+VZ5cdls+XH5c flx+MH9dcdZNi8FwkSK mleEkFphzBK0coLLhPH 1byLAnUHGwX2NvEVDtV 2JwYXQyIEJPTkUgTUFS Kv3LWXKENHZEAl5MT8G LFDRMAlUVN3jcNGWaQk InC7SwUJQyX4BaDHTaE L0iuZWrKZB6OAhjtJc2 IFx+HY6ilcp+NO6kutv +WQ2ebur+KY9cngf+XH 5cflx+DU4jjmb+XH5cf xRvxlXEOZMdrYO6FL9p hMTuQZmgWN17sM1aiEG lczpcflx+DG6ndqd+XH 5cflx+YV8bxvr+XH5cf lx+IFNlcXVlbnRpYWwg yTU6sCDksWdmikgkKUk ldNqqj4XeLp1hqLTsZM PhfGXtgx7koTNglawsb lx+EJ6bxon+AR9uodr+ GI1iofv+YM4kpkw+XH4 kK5RiuNNwrRevwJHaCW N4asE4tG2iSsFkpZGbz GFzdGljLlxwYXIgTWVn UDfbgilhB1l4YXZ3WG0 cflx+SM0uliv+XH5cfl x+NKXnS0WdKGJlNR6wx IQiLBb8fEFvg4L1gFLd Olx+PB0mfgk+RI7piwf +LX8pkxl+BI4uxjk+XH 3yHy54NWznX7CnEDGbX D9isIWrXFYhJTWdTXDj KFyhzkrmXI7sesf+XH5 cflx+NG2vcll+XH5cfl x+YI6eynVUa4TxrT7rh aVjx4CzVhcdDFXdWjxb v6EyClPwire+VO4xmtr +BA7rbhh+MB3yicw+XH 5cflx+ZQ4dfij+XH5cf lx+ZU5lzat+QD4pIs86 ORbjV5IfTLLnPV2fzSE yfQ== Gross Description (test l7izlRBcBHOcu4qjBHX code = [id number]) rPfZlSGDFv9qgg037eU JfYTxmYkGyYmB2tSPnJ TAsxZJas7V0ASmyrWIj YmUHvbhueEm1c3ckD3p lvi1sWY4mAyCyIOYzLO QwXGZwcnEyIFRpbWVzI O1kjqAVo49vckl2g6dc UKlnqQ0bZIPgGDHbaYR rl3M4JQqrkDWtRETMl1 NhvVQyCZ5kjwt2a2dfR Mqlk8arb5VlVbUcMQRm ZXQwXGZwcnEyIEFyaWF jDF7lhpVkmzy7o0yiCF XkPl7yEOJjatxyC5pln hHrzSUuTsDbwGFxF224 tgsefbd9h9foKXImFz0 stTgbW2qgcwGniVSvLh BycTIgVHJveSBNaWNyb fLzqJM9lEbjIpRqBKEn t73gdewcP7vtexEhpVF uYhCntGXiC1shYl9wB9 09MKIgBQlmb2wbo2XjZ mNoYXJzZXQwXGZwcnEy RKZcP72nUGYXU786WDE bPLEkZDTgr9ror3alA8 hhcnNldDBcZnBycTIgQ OOyFIs9rP7Zn8yfv4mg pvAqwYV8YVExGSUiM1H hDY3tOFStyVWhI5koFY HtROtbabWvjpT8ILZbk NZeMLisihJiOtEhI7Vl HW3lFGtfzVSdMeN0VLP oMCU0YSifKZHoWRtfXo d0MAA0C3jzFUU6B3vvu iRjetEtPCGucNO3Qyxm nyNzPgvyF0GgUR76KZx dbGPwKim0QBQlTEy1VF moPGCsBDQdCzm4TLv8O 7dnHDYeBQQpX4CcUP4g KQQmIci7XITvNCirbtP dEPN1UXxmCSAyGSB3PZ KltBBaUvx0OJJrGSI7D 1potcYlceW7B8fntACc OUNtJ3gcQEPzEWziJ5Y kVG2zENylObb7RUI5FN pjuaOkVFh4ROixFEKhX Gy1GEOjlKKpJpO4BBTz FAO3QKmftyKazyY4NAk bqRJaBQqeL6xsXFQiXC afC7PvYJ1uFNjuFus6X TIwNztccmVkMjIzXGdy ZWVuMjIzXGJsdWUyMjM 7XHJlZDIzOVxncmVlbj KdKMzfhEYjKzJ1W2xmB WHhMGPpJ3YhTM7hACDn Dkb8KTU3QUtubaJzGAg gzxVlrxCwRdd2ZKU9ZZ t1Xjdgs7X0aRVhuYByh HtcczEgaGVhZGluZyAx T853FDBpVFraRXTsacm oGgm2l9acUgKyGPGwtA 7vHFZ5pKagkgNigSExL QlcNiT8N295TND1HJij DEAhxvxlATt4m0ogYjN eXPTngZ5bBES3zJ8SLm txYLEjtampBGq5DDkbC ZFovfgmIwU0THgjNKTi kIo1FUjiQANvdcK7Zin tYXJndDcyMFxtYXJnYj yfPSmkEXHaSBX7PsOvJ CEme1Mifca4YbGgNrCk LPGXGrroaWCfQAC2PHL 0ZjFcZXBpYzkxMDFcYW 2lfXzjiKg4vZobUUZnr eO4aCDmDImym8ctDCW6 b0ltzrxvAENsROfjVs7 udHRibHtcZjAgQXJpYW w4vS58OUBmdU7vgQCdN Dy4JJKvkoTkeBkowX3y ZnMyMCBCLiBJbGlhYyB DcmVzdCwgTGVmdCBQb3 C2MJJfb8RyTUAix5Ybe ISfOPZxiFQmt8machK5 PSRuUiZ6UOIhcCDmIJR xMDElusEQdUJjjD8soi BpcyBlbnRpcmVseSBzd BYjtPC2ZPYrqP4aDPXj qI2xee2rlXGnGRTqz5L wT9XgxRSunGJmxEGkR5 JccHJvdGVjdDAgXHBsY WluXGZzMjBccGFyfVxw MBD0Or7= Disclaimer (test code = u4durUScTTAkqUQwSaJ 9844) gKKBvFEVeb4jeBOFmwS FuZzEwMzNcZnRuYmpcd UHxNASuQnKro8pih907 mBGed5jgAAAcOxX7uLJ lIQWovCMhU099SHKwII iac9muv6OyROZynVWyk 2Q0YUWPwczhqEp9mBkj S42yo4W1DigjH9chEYC vWZFzZ4InXE0hATBoHj d1TYK0YGS4KWOqLIIrE 4JmNQ0lIVRtbUZsEZg2 e7kqvFqfEDYbBHF9w3z iWAqwuiEcDY5xyp0kxJ a7d1clslUcQJTpYJScv INYLRBaO0NkfXrmMt3m rXq7oXrmCxylSTR8Vrt 7FK7iel30vfv6hUvqAC AlyzupRdJ4HPyuKJXtv gheCFw9HDodHVJvwIS3 GALqdZZuU8TsJTUjTN7 gjsr2WLV9IGjkVUXbOl M1CQMgdTMtLVSdvNskN Ziju144ZGV9ByUgCG5l K2Xzk4O2xJ8tdSTgWAI jzJEcNvNkOYFfur1wsP WcZQiug1MuZQU6fzV3j PGhfVHoXVPeNJ15Dmrh o7VfOqiuPOE4DQNrorU po5Mwv7pbFwFfdbRaQ6 crD7ZrLEVsBKLzIMZrK rKuzyJls4Kup4TqrFRe pYj6c0otYJMzXBVxbTt eg8xzPXT5KFQcT2K8iP Skj0dyVCwaXXWwiWJ2i gQ5LVDcjRXpO4SzsL1i OAQdGY8lzfi9t1drYHV 8NHjbAIHkNuX1fvF2LB BcaGVhZGVyeTcyMFxmb 237UXT2IkWhYMVcu2Lw F5InqBiiD48ojXbeV96 fMMBvwGoznN8jfGsjmF 5cZjBcZnMyNFxxbFxwb GRuthjhACznpnO7PKcz ddcnMRPiMGljJ9rbHeM nBEJulQhiFWdjm5MvIK PsPCZiCmdrxcV9BELUt 03lYHHwz7ErCDBavT8t kOLsYWhsxwWnqIP3JZa hdmUgYmVlbiBkZXZlbG 0wIUVeWV4bPCUbijAid x0gkgIxWDFzARLvV9Zc cmlzdGljcyBkZXRlcm1 onbUfOQR8MWOJPA6HVH CgSCBwp45cJFZlxXuop O3wfQHhnxVgJZUgo6Bw qW5veALKLMNmR7ewQV5 bFLmhs9DdaHVesXZqcM A6ZLRwz6DmFmVtfpUog BIleEHlS6DuxXtvL8pt DGQdFSBhkoEhaEBco1E dLQFrnOI0bAPdPX3NZo GLd25wFAWkQOVTtdZrR GMotWeekRF5hfY3rP8g LiBJZiBhcHBsaWNhYmx rIJCdq424gm8pqgV5SX OnOVPgxgrzq5BuZSJpU OTfmZ49RWPnIVXkcf8n qjixtBTxdcQlL7Vthxu 6lW6aZXLjBJlvQXMmWY ZzMjJcbGFuZzEwMzNca GljaFxmMVxkYmNoXGYx EUamU4oiLiRqUwSfVln wYXJ9 MD DaoCytogenetics Specimen Collection -Bone Aaphpn5749-00-40 19:53:30 Test Item Value Reference Range Interpretation Comments Ken Ruiz (test [id number] code = 02228) Cytogenetics Yes (Received) (test code = 8304) GUILLAUME (test code = GUILLAUME) Please schedule in the morning. Thank youPremedication type:->NoneAspiration laterality:->UnilateralP rocedure type:->AspirateProcedure type:->Clot MD DaoBondolores marrow iskohpshdr3259-04-26 15:30:00Bhavik Armas NP 03/03/2020 1:32 PM Procedure: Bone marrow aspiration Date/Time: 03/03/2020 1:15 PMProvider Information:Performed by: Bhavik Armas NPAuthorized by: LISA [employer] Teacher present: yesAssistant: Daiana DarlingMediilya senior medical writer used?: senior medical writer not needed Patient Diagnosis:Pre-procedure diagnosis: CMMLPost- procedure diagnosis: unchanged Indication:Indication: evaluation of disease status Anesthesia:Anesthesia: local infiltrationPatient anesthetized by: advanced practice providerLocal anesthetic: lidocaine 1% without epinephrineAnesthetic total (ml): 10 Sedation:Patient sedated?: patient not sedated Aspirate Site(s):Laterality: leftSite location: posterior iliac junaid tInstrument(s) used: [place] needleInstruments placed by: advanced practice provider Dressing:Dressing: compression bandage Post-Procedure Patient Assessment:Patient tolerance: wellEstimated blood loss: minimalComplications/Observations: no complications Discharge/Disposition:Discharge instructions: verbalPatient discharged to: discharge to homeDisposition mode: ambulatory Sample Disposition:Testing performed: flow cytometry, cytogenetics and pathologyResearch samples(s): yesProtocol #: [id number] [facility] Asp[facility] volume obtained (mL) - left: 19Visual [...] were observed immediately after the procedure.MD DaoGlucose Zuxzf1786-74-31 13:09:56 Test Item Value Reference Range Interpretation Comments Glucose Level 98 mg/dL 70-99 Reference rang e is (test code = valid for fasti ng 5699) specimens only. Guidelines established by the [place] [employer] guidelines (Standards of Medical [...] nitrogen (BUN). MD DaoPeripheral Smear for Bone Bvmbwl7307-18-17 12:43:13 Test Item Value Reference Range Interpretation Comments Peripheral Smear (test code = 4273) PSMEAR MD DaoGeneral Laboratory Add-On Lmxr4912-03-11 00:17:18 Test Item Value Reference Range Interpretation Comments Ordered (test code = 6568) Test Added Test Needed (test code = 7604) GGT MD DaoPathology Outside Befkuagqjclwmb8173-37-14 15:40:00 Test Item Value Reference Range Interpretation Comments Materials Received (test m8vvbIRaTMHidQVjJsWl code = 9973) LXNaITVej4wbXJLpgPJr ZzEwMzNcZnRuYmpcdWMx ULJlJpUuw1wyf858jAYz a3axQQDdCyS2eOBnLYPm fDTrG351VNEvKZgge9ck v6OuXSJhwENvz4O3DKDL abjjnXi4rMgxT88ez0G2 BuffC9jrAEZvTPCiC1Mk LA4aEPBiEjh3WOO4YFJ3 WZKrIQWwN5EqAE2kEFAf nJZfZUm5f8svoWloEOSv KAR3l1svTMcjyeIeMJ1v dq1uvEk0r8uqgcEiLIMt DGYcdDMRFKYmH1MuhZuu Ub8xiEl3sCnuChttIED8 Pju8EK4jjc43vvx0aUwb YLZytlwwLnS0OAvmIZTj rulsAHy8JGxnPBXwqSsq MFxtYXJncjcyMFxtYXJn dKA5RBLalFZyO0MmWCTs PTikRUFkgqv6JuBzRo3x sXNlxZlgRYgiz4bzr9tb gFOlDzx0HVQpXeOgHvbt ORadk7Igq5ziWYUqkl3h MAL1eZLfkLnvu1U7kJMe TAOriDQrmdBbEVDlou03 iXUptLKymKQovw9tghIi vKTuiVKkZEO7zJDledHo ZGErhRVyFBWsYI2uoWKp DHXoiA6zabuoIZYqVtOa ouucIKVmjPopjhMgQv0b qCqqXCM1GRsmO0xhzN3l TzF0YBvdM6sjhK1dNRt7 GRoerME9VHSzlV0hUK9b htzsv5pePyUeVX6gbkma w9ewXzUgXF8rfqd2z5sq QIR8LXqgUAJmPmO9ymQ1 NDBcaGVhZGVyeTcyMFxm d434JXJ9WzCcXRGgt7Qn X3ZibFnlS02iaFicG55r BGXwyJuplM3owXnbdW2s NlHcJoGqWHc2bv10EDu7 yxnmmJivUAq6laXdXRMm WRC3ZAKjqYXhHSLcV7x4 fmBvWGGoSMG7ZNEjuXLg GOCpL0u4wmHiIST1RBv0 cnBhZGRmdDNcdHJwYWRk YjBcdHJwYWRkZmIzXHRy cKSqaDJoeAEuqF9soJqu NYUiyKDdtB1vNPU7MXSu cmgzMjBcdHJoZHJcbHRy bv21MOUjuyJqlMTglXkz fTWpMNV6JPPuBNXwEKCq PDH0FBVaXnAcaqUzIFhl bGJyZHJiXGJyZHJzXGJy IYS6CSNiUfKspvLcXVep bGJyZHJsXGJyZHJzXGJy DST9FEJzRkZktbIeIAps bGJyZHJyXGJyZHJzXGJy IBM0EFZsVzHyxnNbMTwc bHBhZHQxMFxjbHBhZGZ0 M4wcdTRrJOPoUFddyNUb KFWsX6uxcGYyWEgwRFQe cGFkZmwzXGNscGFkYjBc Q2ckIXAdKjIdD4PyhQs0 MDAwXGNsdmVydGFsdFxj iTAbVJE2KPHrLDVfFNMi XUF3QZAdQaInldOeYSpt bGJyZHJiXGJyZHJzXGJy CTV2XVKkAoWhepDaWYcs bGJyZHJsXGJyZHJzXGJy WGL4MURtRvLkrhHzQGoh bGJyZHJyXGJyZHJzXGJy CSQ4ZWWvDmWqbhYqEPed bHBhZHQxMFxjbHBhZGZ0 W4xksWTcWCJzRUyxbLNg QEWvC9jveDUyCWlyJQXs cGFkZmwzXGNscGFkYjBc D5wgGZPvEoSyF8JvpAu9 NjAwXGNsdmVydGFsdFxj vNFtUSF6KYDuRCYsIZXn KPV3XYVhSjJljvUnTXus bGJyZHJiXGJyZHJzXGJy SIA6OACnQnFcyiKbOWir bGJyZHJsXGJyZHJzXGJy IMB5JWMuPoLyijUcJCug bGJyZHJyXGJyZHJzXGJy PUT0EJNxDuYpuaRpKVfc bHBhZHQxMFxjbHBhZGZ0 I0zdvNRrAAPjNVekcXZs QJLaL9ahwRJiFWsiRNQq cGFkZmwzXGNscGFkYjBc N1bsFQFkSuOuC4AznMf5 LxTmTFDidaDaqE37Rfgq e7SqJNFxYSA1QJecXHfj bFxwbGFpblxmMVxmczIw EZgtrjjeBYTmQDgiC4od IdXkUYScvEhsPWfwf7Ik XGYxXGNmMlxmczIwXGIg UKZdHEYejN1pOdywX9Of iS2mZEpjKmpiM9ukAUOk g1YfrL4rIErvwCAbmbwv MVxmczIwXGxhbmcxMDMz BXumZ6zpJxKvFXRkmFpm ZHcnz4GwZTJbDQXdYvxw cxObFOy5gtCsFZRnrZbg bSAfXIsonlPwmUoud2Zg fhTnbAgeZSQrAOa1wmKv xytqlQj4rLYpnEjjKVId aYdmvF0gNuMdNuKpEHij bGFpblxmMVxmczIwXGxh petvLYEbNEgrM3alCzXe QAZqgDvkHSwtd1TrBSJh IFVzTusnfsMxMKNfL61f bGVjdGVkXHBsYWluXGYx XGZzMjBcbGFuZzEwMzNc aGljaFxmMVxkYmNoXGYx XLwfX1toTbAeN3VsCMPk WuPiyAGiC6xrY8QieJvy YXJkXGludGJsXHNzcGFy CQW2aOHowyAtkQFlpPMi GKRsMTmoNZX7eFUuvine vFFictlyZDfokwL3BJIt YWluXGYxXGZzMjBcbGFu ZzEwMzNcaGljaFxmMVxk FmJuMYKtCFjdQ5hiGuLg R2PdKWRyZpCiAwCNTHTj aXZlZFxwbGFpblxmMVxm czIwXGxhbmcxMDMzXGhp D8xtIkZsUSYrgXeyXJxi p8ZdFHCqKJMmUyykhbBh BNs9ybBwNDCydKpbhN88 Jrcyym41MZBkg4kzWDTc U0MrqHDxNNTumIBgCAtl MDhcdHJwYWRkZmwzXHRy cGFkZHIxMDhcdHJwYWRk ZnIzXHRycGFkZHQwXHRy yAUnROE6U6x5ypWpZGYg NRy5biNnGRXyYyBxrIJh XHQ7VWn2MhexpnB1iSSu P5e7DticepKpKEclmNXg ut30IXSxnpEkdIWsgLhx wHPaGGQ5QXSrKZUgUVTv QTN0OXRoDrVdsgVpJJcs bGJyZHJiXGJyZHJzXGJy XWY5EPFjHzPszlCpMBzx bGJyZHJsXGJyZHJzXGJy MLP8HZJlDcGinaHqEGtm bGJyZHJyXGJyZHJzXGJy BFX1PDXlRuZxwrChEObn bHBhZHQxMFxjbHBhZGZ0 Z7idjPFrJQPeMXykeKPp DLDnO6mzgWCuRKcfKLFg cGFkZmwzXGNscGFkYjBc B7xkASPtOoRsH5HxbWm5 MDAwXGNsdmVydGFsdFxj hXNiDBO1TTEbLQUmYAZa KHD4ANUnQmEkcuJqWFix bGJyZHJiXGJyZHJzXGJy KSP4SWEtDeVmtqUvUEus bGJyZHJsXGJyZHJzXGJy BFY1ONDfMlYfxaMsUJek bGJyZHJyXGJyZHJzXGJy NIU1NIPuZvVwpsBeYRqp bHBhZHQxMFxjbHBhZGZ0 L0fguEYcADQqUPtlmDVc JVNoS4rbrXEpLWvaXEQp cGFkZmwzXGNscGFkYjBc C1upMMHmEzRsR7AglCo2 NjAwXGNsdmVydGFsdFxj tEAzSAN4BEGwIBTcIYYr PZB7LCPnSoImzaHtOFql bGJyZHJiXGJyZHJzXGJy VGI0UVCuKzYhouVyESmx bGJyZHJsXGJyZHJzXGJy STZ5SMHhLlJyxpLsOYnx bGJyZHJyXGJyZHJzXGJy PIG6QBChCxBbhwAyZUrq bHBhZHQxMFxjbHBhZGZ0 A4xkcFOgWNSvKWzadOQs MBFlL3kdrPYvHNmoKJQh cGFkZmwzXGNscGFkYjBc C9lfSTYrDaUeV2TuyFc4 RsBrCEVrbjKhrJ65Xdnc r9GjBWHeQLI7ASmkDNmx bFxwbGFpblxmMFxmczI0 XHBsYWluXGYxXGZzMjBc bGFuZzEwMzNcaGljaFxm PXnrRtOgQDZoPUllL1bf OxZtE1RmBWDnDuVnMR9o LNHoFF0oTCZ0PKEmRsYu A6IvKMJBJT6KL9JqDGDX H1PibUvbaI5bZxYpGeTr ELaqPM6wFVOyJ3neqYRz YOVbHVPmK4mzIqCilU7r aFxmMVxjZjJcZnMyMFxs dHJjaFxjZWxsXHBhcmRc tS61Wxhtc4RuVUSoVOI0 MFxzMFxxbFxwbGFpblxm WJohgeY1ZCZeRUmuGEJo XGZzMjBcbGFuZzEwMzNc aGljaFxmMVxkYmNoXGYx WKfwJ1scCyXzC0NyPMZy DxMqIr97ZgRaQcYzzSda hU9cAcUsLvMlJNsyNM2f HJViO5iweXHaBFZuCGTt S0tyOrUhkI9nuKsqWEta ZjJcZnMyMFxsdHJjaFxj FTbzLAWxibJweS22Npih h0DhUZVsIEQ3LObrRVfv bFxwbGFpblxmMFxmczI0 XHBsYWluXGYxXGZzMjBc bGFuZzEwMzNcaGljaFxm XNxoYmCcJKJiCEtxY5zy MtRxI0LfPZOgIaUlSh5o UH8vKMByLUPgPWigJPKq XGZzMjBcbGFuZzEwMzNc aGljaFxmMVxkYmNoXGYx IFjqP7zlQwRfP5GwLWFy JkCrkRBtP5laL6WqjYtx wnRkjMbyh8rkbYWiUYay b3IxxnXbvYvxEWVhMGGi XHBsYWluXGYwXGZzMjRc kWswpO3jKdGkFtJeHZkt GQ9qTKBvA0yqfKMgKNQl DMDcT2urZlMinO3biGvu MVxmczIwXHBhcn0= Diagnosis (test code = l7jdqSTnBRQpkLB1SHNh 34) HBLdr1xdn7MaqBTbhWZh NSgxuXSiidBwhe85sRB2 cS96UL7wJSEhGlP3YAZq igW7Sma1OCDcYYEeqHPp G873a3fgu7yjgoUrkBN3 cSsoDVWlQMJ4UtGcMBY1 MWY3UWv7nGRdIyNshTby HZakXNV3VeLxGGw2sVYs WaDdqHz0GARdUMX1EMc7 FLv0tLD9BRVmlBw6JbNs QWO7VqsrGFn9mSe7AEMr oCw1PhBzULL3YUPtZYGl pOqisA1uJdNnXEwpUYVh Ar0lTGZbQMDio6zrFNBv p4FbsIbaD4brzCRoICD5 aY5eFMOvu5YjahI0GEVg hAJkxtBhDH6jCDQzuBNi IGltcHJpbnQgKEFEMjAt AsJmUJFbBQI5KjTwXlBm VAs7GVYqymwcXBMepPo4 RrKdkNzjXyGoTRLQXq2X XZTkJDjLPT3PP31TI8fO LNGbMLEYO7QWWIVsDjVv TIKuSJCeZGLEPZRUC8ey YXJccGFyZFxmMFxwYXJc cGFyfQ== Comment (test code = u6butTMpCDMkfZI3JYPk 9835) DESnj2evz0QlwODcnTHp JJxgmSQntlXdqk21cWN6 vI55NR7sGFXvHpO1NGKj faB3Ahi4VDBlBGPijSFp V501l4bnv4nvjwFwwPJ4 fVxwYXJkXHBsYWluXGZz MjAgRnJvbSBvdXRzaWRl QUOrQA5oANOoIK6njV2m jnHgNCH7qDQcvXE9eJZx pZEbGTCcdTTie1lpzTIt mNZhq18cX5s0r5Dafr7j cGFyXGYwXHBhciBQZXJp dEtajuPkMMZbn87gZDRd LHMiUYFgd2xyEKvogRia R9q9a3RtzwJ9dAIfIBfa H9IqBGDnMCJvkeGtsBnc N7o1DVOnCO3nQH5wei5g tTCzga3iDOIdstioEDCk Dw8sZDWoITRbd0fcV35v IIVmmR7kd0fkZW7rPHKy w5Qon8QbnElsecRgv1bi adZjCAf0dHGbA6VloAFb URIjHWfgEJijpIGpvn90 IHdpdGggdHJpbGluZWFn TMLeEO9nuJ8kq8dxy9sn GvURUKpqb4VoyC0tjRxf xfVqvmEkoYDji6UekVH2 jJLuHTAoILY5MLSvOTHj aUQuuZ8cYZPsALDmg5Nj wk1zQL3irK6wc1PkiO8d ATMxu2xrLI66TGUzoYNu fJKpuPfwfOfbY0r4TRBi XdwiA0VcBU6hXZ24jK8B HSFvUWzfV1dnfHgguVTq iW7yuxHza3TqHR4bX5Oc KNW6p7H3wTTpSZCzAHAq p00nCXVcHIPvmOPerXrf oNswp2ulThP6BJXeNEQh dRlxXLBRCYndI4jrtCsw rGXyD7SqklCmg9J2mPMc SQW4wPwnhFVtohBigYNp JV4liM0axzKiRDZhhIpi J7I9MAAxaAbwgOmvoQAm HLXbkDB3EVCvVI4dRHHa nKRtqs8mMKZaTCgfwq0k ENOgknXciVYxdvKjcV56 jxZqyrMqbWnimGFyW5Mu aBYqun3vCMHrbA6joPPh n95nXDNdaTiglOdidtOg yKLshtArpN14zaZcvhEx xFxruWZyB4OqlJZnTQKi N2VekF0zUckghi1dyOXa IFxwYXJccGFyIEJvbmUg rVIkst77VBKrCBTublXa mL89NP80WJxbmEEpC9Sk gGCrRXEvBCYggWX5tMZv wMivwG8inmVsk2BxOUks bAqjoTEoD1Ugt7RhkxRw aKQ3kCVqcVspcx2aYTX1 iRrpl7qdDTOjwTtxDBEi RCQdVXkznJl3QRp2LEPx E3JxEQZuUZ9xFTOeHHvd wqztC1j8PKRkLRUxGPBn DCC1RDKkXYBlodMdo52i BRAnezMlqEerd4lyBbK7 UHEaHAXiMHO9bvPavdVy SC44IMHuIdE9i3ZnmVHi UWlskk5pmDAtDWSbauJC IWGoa6D6t8jnEANeHYIk z4mmH9owfxOno3Q2AjQo q419KP43nW6bNZbpS2j9 p0adkvP4bGCuk8D2ZVmy o4mre5EwZHWczm8vbIRo MD4biUUdk1IykE31aWJs AaLFCOSCHZRpj1blPYWu pzGgHw8xtu0caQw2sBYq YU3gEOPyNNFZWA94EBP5 nGvsL7RDJGnqBEDUMH8N G3PmNTIlyIrki1TlQsQx JdLay0ypI9DtMYOex9D2 JZtwg8ope2OvQT1gZ3M7 zFAgHHCdc7NouJEzId1e DGyEZmTgGaHrY2WpIJMA TFIsIGFuZCBNUEwuIFxw YXJ9 Disclaimer (test code = r1jejSOzBOVwoVWxSlSa 9844) DTRsLXTrq8igEHFldSDg ZzEwMzNcZnRuYmpcdWMx AKRmPqSvb7epv861aMVn n9egSORsFaT1aSHaCMOo oVHdD296NBClDAyok5ft b6GlILLkmWWul3L7UUXP wgpmeSk1nXehT39et1B5 BjexA1kmRVUdAOGnO3Iv WG6fRWClVpr2FHK3HOR7 CGUgSGBnU1IcBM2tUHSz iFUlLVv8q6dtsCpjTPZn NBX2x0poSPnwbnJgJP8c fk3zeCo6m4mgeaMbREYa DLTseXSWWDPmJ0ZzaTvx Yv5hsPs0yVnjTbbjYXW2 Vme6PP4odd43fjz9eAzn EJPffamuZyF9VJhwQRHm qxwoLPm0LCosQIBjqJN4 QLUmdMEjO3QzEHMdBS7y vpt4XBF4UMjhMRHmOqA2 NDBcaGVhZGVyeTcyMFxm b264NIB3ZeZqAW8dG1Ex m1D4hC0ovUPvFRZltQSs QqBbBUCski2dkBLgIPhj q0EpFNJ4hmM0eFJcrBPh HHGdFK22Wicpb3ZlAhzq ZOQ5WLSpovYmz5Tvg6ss AwXupfSvP7mnH1YaWHGa XAXwFNImByLkewVga2Up h9EznBEmfNz1q8vtRWNr EAHauAbvw8agCZV2VLJl A9I2lCWmn2hoGSeyEKKl tZF9klT0PXFivOCsR0Rg iD2aYTJiHV6fvnu4h1uz AFW1WZvuLYVpFpK1xaT8 NDBcaGVhZGVyeTcyMFxm e839JIH2UoPfRBIcs6Ya H8ApwVbcJ67rsNwcD71b EEUaaExopC8bsAqkaQ7l ZjBcZnMyNFxxbFxwbGFp athnXVxepzD6BNuprory NXMzIQcdL2ybMsXjNIJg wRoeLPmlb1SeWXXmJBWa WexvbkH2JMAWf48dEFGv e4FlMYEuyS5yxLIkAGiz nyMblCR1CVlavdKyLvXt rgJqXAFscH2xRLKhHS5q LNEdefIznd3xirWaPMOu ESXqO1BjojhnsKafnaQt EEGrsa8btwImUUW9PCLZ QY1WBTNqLFJhl43bVYUp fIiegQ4iiAYqucYxKKOw s4IqpW0raOSMKMWfZ4eh OM3dHWsfo2GwkUJubSNl jII2KZUwk8UhMdTmjbNl fLWqdDRiL6YxjFwyN0zj PRPpYPQyqcElzBHxv9Gy KHJmrWL2zMDvSA6SEyJM d02zJJMvUMRNabSoYODp rQhdsQH7syN9wL1bJiUG ZiBhcHBsaWNhYmxlLCBj f840ga9ydkU3PTXcAWEa nyeui2OzHSPnDUXxcR49 IHReFCMliy3yrpdhaJPa tfRkB4Wqcia7cH1vGXNu YWluXGYxXGZzMjJcbGFu ZzEwMzNcaGljaFxmMVxk BoZpIHSsLYmtN6loSvNf ZnMyMlxwYXJ9 MD DaoFlow Cytometry Specimen Collection -Bone [id number] 18:41:43 Test Item Value Reference Range Interpretation Comments Flow Cytometry Yes (Received) (test code = 8319) Ken Ruiz (test [id number] code = 86128) GUILLAUME (test code = GUILLAUME) Premedication type:->NoneAspiration laterality:->UnilateralB iopsy laterality:->UnilateralP rocedure type:->ClotProcedure type:->BiopsyProcedure type:->AspirateSelect the Bone Marrow Stains:->IronSelect the Bone Marrow Stains:->Reticulin/Trich brenton MD DaoMolecular Diagnostics Specimen Collection -Bone [id number] 15:07:54 Test Item Value Reference Range Interpretation Comments Molecular Diagnostics Yes (Received) (test code = 8400) Pathology (Qualitative) (test code = 8412) GUILLAUME (test code = GUILLAUME) Premedication type:->NoneAspiration laterality:->Unilateral Biopsy laterality:->Unilateral Procedure type:->ClotProcedure type:->BiopsyProcedure type:->AspirateSelect the Bone Marrow Stains:->IronSelect the Bone Marrow Stains:->Reticulin/Tric hrome MD DaoBondolores marrow aspiration w/ [id number] 19:00:00LISA Carpenter 12/15/2019 8:01 AM Procedure: Bone marrow aspiration/biopsy Date/Time: 020 3:18 PM Provider Information:Performed by: CORIE Carpenteruthorized by: LISA Griffith Ship Design Teacher present: yesAssistant: Aga Krishnan senior medical writer used?: senior medical writer not neededPatient Diagnosis:Pre-procedure diagnosis: CMMLPost-procedure diagnosis: unchanged [...] Interpretation Comments V K (test code = 38263-4) 5.1 3.4- 4.5 mEq/L H Lab Interpretation (test code = Abnormal 39518-1) MD King HIV 1/2 Ag&Ab Path [id number] 14:20:41 Test Item Value Reference Range Interpretation [...] 9: 20 AM Bayron King RPR Path [id number] 14:20:40 Test Item Value Reference Interpretation Comments Range TMP RPR Path The Rapid Interpretation Plasma Reagin (test code = (RPR) assay is [place] RLY 329345) negative. If Isabelle Crook ed by: syphilis BARB infection is Ayesha NEWBERRY suspected, Date/Time: 12.01 please perform 9:20 AM CDT a Treponemal Transcribed Ian e/Time: specific 12.11.2019 9:20 AM screening CDTElectronical ly assay. Signed By: maikel SMART 12.01 9:20 AM Bayron King HCV Ab Path [id number] 14:20:39 Test Item Value Reference Range Interpretation Comments HCV Ab Path There is NO Interp (test serologic code = 8923) evidence of ____BARB Hepatitis C CONI,Dictated by: virus antibody. BARB BRADSHAW IN,Dictated Date/Time: 12.01 9:20 AM CDT Transcribed Ian e/Time: 12.11.2019 9:20 AM CDTElectronical ly Signed By: BARB GRESHAM, on 12.11.2019 9:20 AM Bayron King HBcAb Path [id number] 14:20:38 Test Item Value Reference Range Interpretation Comments HBcAb Path There is NO Interp (test serologic code = 8924) evidence of ____BARB Hepatitis B CONI,Dictated by: virus core BARB NEWBERRY, Dictated antibody. Date/Time: 12.01 9:20 AM CDT Transcribed Ian e/Time: 12.11.2019 9:20 AM CDTElectronical ly Signed By: BARB GRESHAM, on 12.11.2019 9:20 AM Bayron King HBsAg Path [id number] 14:20:37 Test Item Value Reference Range Interpretation Comments HBsAg Path There is NO Interp (test serologic code = 8922) evidence of ____BARB detectable CONI,Dictated by: Hepatitis B virus BARB MORGAN,Dictated surface antigen. Date/Time: 12.11.2019 9:20 AM CDT Transcribed Ian e/Time: 12.11.2019 9:20 AM CDTElectronical ly Signed By: BARB GRESHAM, on 12.11.2019 9:20 AM Bayron King HTLV Path [id number] 14:20:36 Test Item Value Reference Range Interpretation [...] (test code = Non Reactive Non Reactive 231147) MD Aponte C Virus [id number] 04:17:10 Test Item Value Reference Range Interpretation Comments HCVAb. (test code Non Reactive Non Reactive Performed at: = 5762) [facility] [address] [address] MD Aponte B Surface [id number] 04:16:51 Test Item Value Reference Range Interpretation Comments HBsAg. (test code Non Reactive Non Reactive Performed at: = 5747) [facility] [address] [address] MD Fay Saldana Total Ig Core Ab (SCREENING) (anti-HBc total Ig; HBcAb total Ig)2019-12-11 04:16:48 Test Item Value Reference Range Interpretation Comments HBcAb. (test code Non Reactive Non Reactive Performed at: = 5742) [facility] [address] [address] MD DaoHTLV I/II [id number] 04:16:23 Test Item Value Reference Range Interpretation Comments HTLV I/II Ab. Non Reactive Non Reactive Performed at:M D (test code = 5842) [facility] [address] [address] MD DaoHIV-1/2 Antigen and Antibodies, Fourth [id number] 00:13:43 Test Item Value Reference Range Interpretation Comments HIV 1/2 Ag & Ab, Non Reactive Non Reactive Performed a t: 4th Gen (test code [facility] = 9280) [address] [address] MD DaoResearch Protocol [id number] 21:05:02 Test Item Value Reference Range Interpretation Comments Research Prot (test code = 7189) 337173 MD DaoVitamin B12 [id number] 19:22:54 Test Item Value Reference Range Interpretation Comments Vitamin B12 Lvl (test code = 8017) 442 pg/mL 211-946 MD DaoWzqkcjezBayqyuno4825-88-30 19:05:24 Test Item Value Reference Range Interpretation Comments Ferritin Lvl (test code = 5608) 219 ng/mL 30-400 MD DaoConfirm [id number] 18:37:44 Test Item Value Reference Range Interpretation Comments ABORh Confirm. (test code = 882-1) A POS MD [id number] 18:01:40 Test Item Value Reference Range Interpretation Comments Erythropo Lvl (test code = 5523) 20.2 2.6- 18.5 mIU/mL H Lab Interpretation (test code = Abnormal 11135-6) MD DaoNT-Pro BNP (In-House)2019-12-10 17:45:30 Test Item Value Reference Range Interpretation Comments NT ProBNP (test code = 9385) 394 pg/mL <=125 H Lab Interpretation (test code = Abnormal 75010-4) MD DaoPartial Thromboplastin [id number] 17:23:50 Test Item Value Reference Range Interpretation Comments PTT (test code = 6773) 31.8 24.2- 36.0 second(s) MD DaoProthrombin [id number] 17:23:49 Test Item Value Reference Range Interpretation Comments PT (test code = 6746) 13.5 12.0- 14.3 second(s) INR (test code = 5973) 1.06 0.90-1.10 MD DaoTwgxkvesDewifevwne1942-51-46 17:23:24 Test Item Value Reference Range Interpretation Comments Fibrinogen (test code = 5610) 290 mg/dL 214-503 MD DaoD [id number] 17:23:23 Test Item Value Reference Range Interpretation Comments D-Dimer (test code = 1.20 0.10- 0.50 H The cut off value for 5419) mcg/ml FEU exclusion of ve nous thromboembolism is <0.50 mcg/mL FEUs (fi brinogen equivalent unit s). Lab Interpretation Abnormal (test code = 21851-0) MD [id number] 17:20:49 Test Item Value Reference Range Interpretation Comments TSH (test code = 7578) 1.27 0.27- 4.20 mcunit/mL MD DaoFolate [id number] 17:19:59 Test Item Value Reference Range Interpretation Comments Folate Lvl (test 12.3 ng/mL 4.8-24.2 Hemolyzed s pecimens with code = 5625) Hemolysis Index >30.0 (30 mg/dL or vi sible hemolysis) may cause interference an d give falsely high re sults. MD DaoRetic [id number] 16:43:11 Test Item Value Reference Range Interpretation Comments Retic Cnt Auto (test code = 11143-1) 2.4 % 0.5-1.5 H RETHE (test code = 6973) 37.7 pg 23.2-37.5 H IRF (test code = 55495-4) 25.2 % 2.3-18 H Lab Interpretation (test code = Abnormal 44798-5) MD DaoCOVID-19 (SARS-CoV-2) PCR-Asymptomatic [id number] 18:10:47 Test Item Value Reference Range Interpretation Comments COVID19 (SARS Not Detected Not Detected This test is a CoV-2) Result qualitative (test code = reverse-transcr iptase 75364-9) polymerase artem n reaction (RT-PC R) developed [...] fied by the Microbiolog y Laboratory at [facility]. Results must be interpreted wit hin the context of all relevant clinical and la boratory findings and sh ould not form the sole b asis for a diagnosis or treatment decision.Cement Mixer Driver al controls are in cluded to assess [...] sting if clinically dave cated. COVID19 SARS FRYLINE ATTENDANT Swab Source (test code = 27215) COVID19 SARS New Patient Indication (test code = 21511) [facility] W/[facility] & AUTO [id number] 10:19:00 Test Item Value Reference Range Interpretation [...] Received comment: User comments: Slide comments:BASIC METABOLIC [id number] 05:19:00 Test Item Value Reference Range Interpretation [...] S NOT APPLICABLE FOR DIALYSIS PATIEN TS. [id number] 09:50:00 Test Item Value Reference Range Interpretation Comments ACTIVATED CLOTTING TIME 208 sec Refe rence Range: (BEAKER) (test code = 74-137 seconds, 441) Baseline/TESTED AT [place] [id number] [facility] [address] AVPA-[id number] 09:13:00 Test Item Value Reference Range Interpretation Comments ACTIVATED CLOTTING TIME 246 sec Refe rence Range: (BEAKER) (test code = 74-137 seconds, 441) Baseline/TESTED AT [address] [address] CBC W/PLT COUNT & AUTO [id number] 07:02:00 Test Item Value Reference Range Interpretation [...] Received comment: User comments: Slide comments:BASIC METABOLIC [id number] 06:34:00 Test Item Value Reference Range Interpretation [...] PATIEN TS. CBC W/PLT COUNT & AUTO [id number] 11:06:00 Test Item Value Reference Range Interpretation [...] 3438) Received comment: User comments: Slide comments:LIPID [id number] 10:22:00 Test Item Value Reference Range Interpretation [...] 130-159 High 160-189 Very High >=190COMPREHENSIVE METABOLIC [id number] 10:22:00 Test Item Value Reference Range Interpretation [...] S NOT APPLICABLE FOR DIALYSIS PATIEN TS. [id number] 10:11:00 Test Item Value Reference Range Interpretation [...] is2.5-3.5 for patients wiht mechanical heart valves.TISSUE [id number] 16:04:00Surgical Pathology Report Case: [id number] Authorizing Provider: Madison Wang MD Collected: 09/24/2018 1109 Ordering Location: [facility] Received: 09/24/2018 1335 PERIOPERATIVE SERVICES Pathologist: Alfonso Wong MD Specimen: Pl aque, RIGHT CAROTID PLAQUE ARTERY, RIGHT CAROTID, ENDARTERECTOMY:CALCIFIC ATHEROSCLEROTIC PLAQUE Signing Pathologist Direct Phone Line: [phone] signed by Alfonso Wong MD on 09/29/2018 at 4:04 [id number]; [id number] stenosis right side Right carotid plaque Specimen is received in a formalin-filled container labeled withthe patient's information and labeled "right carotid plaque" and consists of a tubular shaped segment of calcified tissue measuring 3.5 cm in length and 0.8 cm in diameter. Circulation Sales Representative sections are submitted in A1 for decalcification. [...] Verified Date/Time: 09/28/2018 09:56:53 Reading Location: [address] Ortho Consult Reading Room [id number] 06:09:00 Test Item Value Reference Range Interpretation Comments MAGNESIUM (BEAKER) (test code = 1.7 mg/dL 1.6-2.6 627) BASIC METABOLIC [id number] 06:09:00 Test Item Value Reference Range Interpretation [...] FOR DIALYSIS PATIEN TS. MR, BRAIN, WITHOUT [id number] 17:40:00FINAL REPORT MRI brain Comparison: CT dated [...] [place] Verified Date/Time: 09/27/2018 17:40:08 Reading Location: [address] Neuro [facility] MET[facility] [id number] 05:35:00 Test Item Value Reference Range Interpretation [...] /100 WBC 0-0 (test code = 413) [id number] 06:27:00 Test Item Value Reference Range Interpretation Comments MAGNESIUM (BEAKER) (test code = 1.9 mg/dL 1.6-2.6 627) BASIC METABOLIC [id number] 06:27:00 Test Item Value Reference Range Interpretation [...] (test code = 413) CT, BRAIN, WITHOUT [id number] 14:11:00FINAL REPORT CT, BRAIN, WITHOUT CONTRAST INDICATION: [...] WHITINGeport Verified Date/Time: 09/25/2018 14:11:51 Reading Location: [facility] Radiology Reading Room [id number] 04:50:00 Test Item Value Reference Range Interpretation Comments MAGNESIUM (BEAKER) (test code = 1.7 mg/dL 1.6-2.6 627) BASIC METABOLIC [id number] 04:50:00 Test Item Value Reference Range Interpretation [...] WBC 0-0 (test code = 413) GLUCOSE-STAT [id number] 14:26:00 Test Item Value Reference Range Interpretation Comments GLUCOSE RANDOM (BEAKER) (test code 118 mg/dL 70-110 H = 652) HGB/HCT (H&H) - STAT [id number] 14:26:00 Test Item Value Reference Range Interpretation Comments HEMOGLOBIN (BEAKER) (test code = 9.7 g/dL 13.0-16.8 L 410) HEMATOCRIT (BEAKER) (test code = 29.0 % 40.0-50.0 L 411) CBC W/PLT COUNT & AUTO [id number] 11:47:00 Test Item Value Reference Range Interpretation [...] Received comment: User comments: Slide comments:BLOOD GAS, [id number] 10:40:00 Test Item Value Reference Range Interpretation [...] (test code = 1819) 100.0 % GLUCOSE-STAT [id number] 10:40:00 Test Item Value Reference Range Interpretation Comments GLUCOSE RANDOM (BEAKER) (test code 113 mg/dL 70-110 H = 652) HGB/HCT (H&H) - STAT [id number] 10:40:00 Test Item Value Reference Range Interpretation Comments HEMOGLOBIN (BEAKER) (test code = 10.5 g/dL 13.0-16.8 L 410) HEMATOCRIT (BEAKER) (test code = 31.0 % 40.0-50.0 L 411) SODIUM NA-STAT [id number] 10:39:00 Test Item Value Reference Range Interpretation Comments SODIUM (BEAKER) (test code = 381) 135 meq/L 135-148 POTASSIUM-STAT [id number] 10:39:00 Test Item Value Reference Range Interpretation Comments POTASSIUM (BEAKER) (test code = 3.8 meq/L 3.6-5.5 379) HEMOGLOBIN [id number] 10:36:00 Test Item Value Reference Range Interpretation Comments HEMOGLOBIN A1C (BEAKER) (test code = 5.3 % 4.3-6.1 368) [id number] 09:00:00 Test Item Value Reference Range Interpretation Comments MAGNESIUM (BEAKER) (test code = 2.1 mg/dL 1.6-2.6 627) COMPREHENSIVE METABOLIC [id number] 09:00:00 Test Item Value Reference Range Interpretation [...] NOT APPLICABLE FOR DIALYSIS PATIEN TS. LIPID [id number] 09:00:00 Test Item Value Reference Range Interpretation [...] 100-129 Borderline 130-159 High 160-189 Very High >=[id number] 08:56:00 Test Item Value Reference Range Interpretation Comments PARTIAL THROMBOPLASTIN TIME 36.8 seconds 22.5-36.0 H (BEAKER) (test code = 760) PROTHROMBIN TIME/[id number] 08:55:00 Test Item Value Reference Range Interpretation Comments PROTIME (BEAKER) (test code = 13.8 seconds 11.7-14.7 759) INR (BEAKER) (test code = 370) 1.1 <=5.9 RECOMMENDED COUMADIN/WARFARIN INR THERAPY RANGESSTANDARD DOSE: 2.0 - 3.0 Includes: PROPHYLAXIS forvenous thrombosis, systemic embolization; TREATMENT for venous thrombosis and/or pulmonary embolus.HIGH RISK: Target INR is 2.5-3.5 for patients with mechanical heart valves.[id number] 05:31:00 Test Item Value Reference Range Interpretation Comments PHOSPHORUS (BEAKER) (test code = 4.0 mg/dL 2.3-4.7 604) [id number] 05:31:00 Test Item Value Reference Range Interpretation Comments MAGNESIUM (BEAKER) (test code = 2.0 mg/dL 1.6-2.6 627) BASIC METABOLIC [id number] 05:31:00 Test Item Value Reference Range Interpretation [...] PATIEN TS. CBC W/PLT COUNT & AUTO [id number] 05:11:00 Test Item Value Reference Range Interpretation [...] = 2801) RAD, CHEST, 1 VIEW, NON [id number] 08:23:00Reason for exam:->pl effusionShould this be performed [...] Zepeda Verified Date/Time: 06/16/2018 08:23:01 Reading Location: [facility] Radiology Reading Room [facility] (HEMOGRAM ONLY)2018-06-16 05:37:00 Test Item Value [...] = 413) RAD, CHEST, 1 VIEW, NON [id number] 12:25:00Reason for exam:->pl effusionShould this be performed [...] MDReport Verified Date/Time: 06/15/2018 12:25:59 Reading Location: [address] Transitional Reading Room [id number] 06:08:00 Test Item Value Reference Range Interpretation [...] = 413) CBC W/PLT COUNT & AUTO [id number] 11:45:00 Test Item Value Reference Range Interpretation [...] PLATELET CONCENTRATION Decreased (CELLAVISION)(BEAKER) (test code = 3434) Received comment: User comments: Slide comments:[id number] 06:12:00 Test Item Value Reference Range Interpretation Comments MAGNESIUM (BEAKER) (test code = 1.9 mg/dL 1.6-2.6 627) BASIC METABOLIC [id number] 06:12:00 Test Item Value Reference Range Interpretation [...] Specimen slightly ictericCBC W/PLT COUNT & AUTO [id number] 12:36:00 Test Item Value Reference Range Interpretation [...] = 3438) Received comment: User comments: Slide comments:[id number] 06:33:00 Test Item Value Reference Range Interpretation Comments MAGNESIUM (BEAKER) (test code = 1.8 mg/dL 1.6-2.6 627) BASIC METABOLIC [id number] 06:33:00 Test Item Value Reference Range Interpretation [...] PATIEN TS. RAD, CHEST, 1 VIEW, NON [id number] 04:27:00Reason for exam:->post-opShould this be performed at [...] MDReport Verified Date/Time: 06/13/2018 04:27:13 Reading Location: [facility] C013V Neuro Reading Room CBC W/PLT COUNT & AUTO [id number] 14:42:00 Test Item Value Reference Range Interpretation [...] MDReport Verified Date/Time: 06/12/2018 11:47:39 Reading Location: [facility] Radiology Reading Room BASIC METABOLIC [id number] 06:19:00 Test Item Value Reference Range Interpretation [...] PATIEN TS. RAD, CHEST, 1 VIEW, NON [id number] 09:05:00Reason for exam:->pl effusionShould this be performed at the bedside?->YesFINAL REPORT CLINICAL HISTORY: pl effusion TECHNIQUE: 1 view of the chest. [facility]: 06/10/2018 IMPRESSION: The right central line has been removed. Three chest tubes remain. There is no evidence of pneumothorax. There is bibasilar atelectasis. There is a trace right effusion. The cardiomediastinal silhouette is magnified by technique with sternotomy wires. Signed: Agatha Galvin MDReport Verified Date/Time: 06/11/2018 09:05:55 Reading Location: [facility] Reading Room [id number] 05:42:00 Test Item Value Reference Range Interpretation Comments MAGNESIUM (BEAKER) (test code = 1.9 mg/dL 1.6-2.6 627) BASIC METABOLIC [id number] 05:42:00 Test Item Value Reference Range Interpretation [...] CORPUSCULAR HEMOGLOBIN CONC 32.1 GM/DL 32.3-36.5 L ([facility]) (test code = 752) RED CELL DISTRIBUTION WIDTH 16.4 % 11.6-14.4 H ([facility]) (test code = 412) PLATELET COUNT ([facility]) (test code 77 K/CU MM 150-450 L = 756) MEAN PLATELET VOLUME ([facility]) 9.9 fL 9.4-12.4 (test code = 754) NUCLEATED RED BLOOD CELLS ([facility]) 0 /100 WBC 0-0 (test code = 413) POCT-GLUCOSE [id number] 19:48:00 Test Item Value Reference Range Interpretation Comments POC-GLUCOSE METER 157 mg/dL 70-110 H TESTED AT [place] [address] ([facility]) (test code = [facility] 1538) [address] POCT-GLUCOSE [id number] 19:48:00 Test Item Value Reference Range Interpretation Comments POC-GLUCOSE METER 128 mg/dL 70-110 H TESTED AT [place] [address] ([facility]) (test code = [facility] 1538) [address] HEMOGLOBIN AND [id number] 13:43:00 Test Item Value Reference Range Interpretation Comments HEMOGLOBIN ([facility]) (test code = 7.8 GM/DL 13.7-17.5 L 410) HEMATOCRIT ([facility]) (test code = 23.1 % 40.1-51.0 L 411) LACTIC ACID, ARTERIAL, WHOLE [id number] 09:11:00 Test Item Value Reference Range Interpretation Comments LACTATE BLOOD ARTERIAL (2) 1.4 mmol/L 0.5-2.2 ([facility]) (test code = 2874) OXYGEN SATURATION, [id number] 08:31:00 Test Item Value Reference Range Interpretation Comments O2 SATURATION (MEASURED) ([facility]) 70.9 % (test code = 1455) RAD, CHEST, 1 VIEW, NON [id number] 05:56:00while patient is intubated or has chest [...] MDReport Verified Date/Time: 06/10/2018 05:56:50 Reading Location: [address] Transitional Reading Room [id number] 04:23:00 Test Item Value Reference Range Interpretation Comments PHOSPHORUS (BEAKER) (test code = 3.6 mg/dL 2.3-4.7 604) [id number] 04:23:00 Test Item Value Reference Range Interpretation Comments MAGNESIUM (BEAKER) (test code = 2.3 mg/dL 1.6-2.6 627) BASIC METABOLIC [id number] 04:23:00 Test Item Value Reference Range Interpretation [...] DIALYSIS PATIEN TS. LACTIC ACID, ARTERIAL, WHOLE [id number] 04:15:00 Test Item Value Reference Range Interpretation [...] 0-0 (test code = 413) BLOOD GAS, [id number] 22:21:00 Test Item Value Reference Range Interpretation [...] 1819) 36.0 % LACTIC ACID, ARTERIAL, WHOLE [id number] 21:36:00 Test Item Value Reference Range Interpretation Comments LACTATE BLOOD ARTERIAL (2) 1.6 mmol/L 0.5-2.2 (BEAKER) (test code = 2874) [id number] 21:36:00 Test Item Value Reference Range Interpretation Comments MAGNESIUM (BEAKER) (test code = 2.3 mg/dL 1.6-2.6 627) BLOOD GAS, [id number] 21:15:00 Test Item Value Reference Range Interpretation [...] (test code = 1819) 60.0 % GLUCOSE-STAT [id number] 21:15:00 Test Item Value Reference Range Interpretation Comments GLUCOSE RANDOM (BEAKER) (test code 149 mg/dL 70-110 H = 652) HGB/HCT (H&H) - STAT [id number] 21:15:00 Test Item Value Reference Range Interpretation [...] 0.0 % 0.0-5.0 code = 1414) CALCIUM, [id number] 18:48:00 Test Item Value Reference Range Interpretation Comments CALCIUM IONIZED (BEAKER) (test 1.16 mmol/L 1.12-1.27 code = 698) PH, BLOOD (BEAKER) (test code = 7.38 1810) BLOOD GAS, [id number] 18:48:00 Test Item Value Reference Range Interpretation [...] (test code = 1819) 100.0 % GLUCOSE-STAT [id number] 18:48:00 Test Item Value Reference Range Interpretation Comments GLUCOSE RANDOM (BEAKER) (test code 146 mg/dL 70-110 H = 652) HGB/HCT (H&H) - STAT [id number] 18:48:00 Test Item Value Reference Range Interpretation Comments HEMOGLOBIN (BEAKER) (test code = 9.2 g/dL 13.0-16.8 L 410) HEMATOCRIT (BEAKER) (test code = 27.0 % 40.0-50.0 L 411) SODIUM NA-STAT [id number] 18:47:00 Test Item Value Reference Range Interpretation Comments SODIUM (BEAKER) (test code = 381) 137 meq/L 135-148 POTASSIUM-STAT [id number] 18:47:00 Test Item Value Reference Range Interpretation Comments POTASSIUM (BEAKER) (test code = 4.1 meq/L 3.6-5.5 379) RAD, CHEST, 1 VIEW, NON [id number] 18:00:00Reason for exam:->sp cardiac surgery intubatedShould this [...] MDReport Verified Date/Time: 06/09/2018 18:00:13 Reading Location: [facility] C013W Consult Reading Room [id number] 17:50:00 Test Item Value Reference Range Interpretation Comments POTASSIUM (BEAKER) (test code = 4.2 meq/L 3.5-5.1 379) [id number] 17:50:00 Test Item Value Reference Range Interpretation Comments MAGNESIUM (BEAKER) (test code = 2.1 mg/dL 1.6-2.6 627) [id number] 17:50:00 Test Item Value Reference Range Interpretation Comments GLUCOSE RANDOM (BEAKER) (test code 127 mg/dL 70-105 H = 652) BASIC METABOLIC [id number] 17:50:00 Test Item Value Reference Range Interpretation [...] DIALYSIS PATIEN TS. LACTIC ACID, ARTERIAL, WHOLE [id number] 17:47:00 Test Item Value Reference Range Interpretation Comments LACTATE BLOOD 1.3 mmol/L 0.5-2.2 Specimen sligh tly ARTERIAL (2) (BEAKER) hemoly zed (test code = 2874) [id number] 17:43:00 Test Item Value Reference Range Interpretation Comments PARTIAL THROMBOPLASTIN TIME 29.2 seconds 22.5-36.0 (BEAKER) (test code = 760) [id number] 17:43:00 Test Item Value Reference Range Interpretation Comments FIBRINOGEN LEVEL (BEAKER) (test 264 mg/dl 225-434 code = 658) PROTHROMBIN TIME/[id number] 17:42:00 Test Item Value Reference Range Interpretation [...] (BEAKER) (test code = 413) OXYGEN SATURATION, [id number] 17:28:00 Test Item Value Reference Range Interpretation Comments O2 SATURATION (MEASURED) (BEAKER) 80.0 % (test code = 1455) CALCIUM, [id number] 17:27:00 Test Item Value Reference Range Interpretation Comments CALCIUM IONIZED (BEAKER) (test 1.21 mmol/L 1.12-1.27 code = 698) PH, BLOOD (BEAKER) (test code = 7.37 1810) BLOOD GAS, [id number] 17:27:00 Test Item Value Reference Range Interpretation [...] (test code = 1819) 60.0 % GLUCOSE-STAT [id number] 17:27:00 Test Item Value Reference Range Interpretation Comments GLUCOSE RANDOM (BEAKER) (test code 126 mg/dL 70-110 H = 652) HGB/HCT (H&H) - STAT [id number] 17:27:00 Test Item Value Reference Range Interpretation Comments HEMOGLOBIN (BEAKER) (test code = 9.9 g/dL 13.0-16.8 L 410) HEMATOCRIT (BEAKER) (test code = 29.0 % 40.0-50.0 L 411) SODIUM NA-STAT [id number] 17:26:00 Test Item Value Reference Range Interpretation Comments SODIUM (BEAKER) (test code = 381) 138 meq/L 135-148 POTASSIUM-STAT [id number] 17:26:00 Test Item Value Reference Range Interpretation Comments POTASSIUM (BEAKER) (test code = 4.1 meq/L 3.6-5.5 379) [id number] 16:10:00 Test Item Value Reference Range Interpretation Comments ACTIVATED CLOTTING TIME 109 sec TEST ED AT [place] [address] ([facility]) (test code = [facility] [place] [address]) [id number] [id number] 16:10:00 Test Item Value Reference Range Interpretation Comments ACTIVATED CLOTTING TIME 720 sec TEST ED AT [place] [address] ([facility]) (test code = [facility]) [id number] 16:10:00 Test Item Value Reference Range Interpretation Comments ACTIVATED CLOTTING TIME 824 sec TEST ED AT [place] [address] ([facility]) (test code = [facility] [place] [address]) [address] [id number] 16:10:00 Test Item Value Reference Range Interpretation Comments ACTIVATED CLOTTING TIME 918 sec TEST ED [address] [facility] 67[address] (BEAKER) (test code = [facility] [address]) [address] SODIUM NA-STAT [id number] 15:34:00 Test Item Value Reference Range Interpretation Comments SODIUM (BEAKER) (test code = 381) 137 meq/L 135-148 POTASSIUM-STAT [id number] 15:34:00 Test Item Value Reference Range Interpretation Comments POTASSIUM (BEAKER) (test code = 4.4 meq/L 3.6-5.5 379) CALCIUM, [id number] 15:34:00 Test Item Value Reference Range Interpretation Comments CALCIUM IONIZED (BEAKER) (test 1.32 mmol/L 1.12-1.27 H code = 698) PH, BLOOD (BEAKER) (test code = 7.36 1810) BLOOD GAS, [id number] 15:34:00 Test Item Value Reference Range Interpretation [...] (test code = 1819) 100.0 % GLUCOSE-STAT [id number] 15:34:00 Test Item Value Reference Range Interpretation Comments GLUCOSE RANDOM (BEAKER) (test code 118 mg/dL 70-110 H = 652) HGB/HCT (H&H) - STAT [id number] 15:34:00 Test Item Value Reference Range Interpretation Comments HEMOGLOBIN (BEAKER) (test code = 9.5 g/dL 13.0-16.8 L 410) HEMATOCRIT (BEAKER) (test code = 28.0 % 40.0-50.0 L 411) [id number] 14:28:00 Test Item Value Reference Range Interpretation Comments PARTIAL THROMBOPLASTIN TIME 28.3 seconds 22.5-36.0 (BEAKER) (test code = 760) [id number] 14:28:00 Test Item Value Reference Range Interpretation Comments FIBRINOGEN LEVEL (BEAKER) (test 187 mg/dl 225-434 L code = 658) PROTHROMBIN [id number] 14:27:00 Test Item Value Reference Range Interpretation Comments PROTIME (BEAKER) (test code = 17.5 seconds 11.7-14.7 H 759) INR (BEAKER) (test code = 370) 1.4 <=5.9 RECOMMENDED COUMADIN/WARFARIN INR THERAPY RANGESSTANDARD DOSE: 2.0 - 3.0 Includes: PROPHYLAXIS forvenous thrombosis, systemic embolization; TREATMENT for venous thrombosis and/or pulmonary embolus.HIGH RISK: Target INR is 2.5-3.5 for patients with mechanical heart valves.PLATELET [id number] 14:17:00 Test Item Value Reference Range Interpretation Comments PLATELET COUNT (BEAKER) (test 127 K/CU MM 150-450 L code = 756) BLOOD GAS, [id number] 14:13:00 Test Item Value Reference Range Interpretation [...] code = 1819) 100.0 % SODIUM NA-STAT [id number] 14:13:00 Test Item Value Reference Range Interpretation Comments SODIUM (BEAKER) (test code = 381) 132 meq/L 135-148 L GLUCOSE-STAT [id number] 14:13:00 Test Item Value Reference Range Interpretation Comments GLUCOSE RANDOM (BEAKER) (test code 170 mg/dL 70-110 H = 652) HGB/HCT (H&H) - STAT [id number] 14:13:00 Test Item Value Reference Range Interpretation Comments HEMOGLOBIN (BEAKER) (test code = 8.5 g/dL 13.0-16.8 L 410) HEMATOCRIT (BEAKER) (test code = 25.0 % 40.0-50.0 L 411) CALCIUM, [id number] 14:12:00 Test Item Value Reference Range Interpretation Comments CALCIUM IONIZED (BEAKER) (test 1.17 mmol/L 1.12-1.27 code = 698) PH, BLOOD (BEAKER) (test code = 7.32 1810) POTASSIUM-STAT [id number] 14:11:00 Test Item Value Reference Range Interpretation Comments POTASSIUM (BEAKER) (test code = 5.1 meq/L 3.6-5.5 379) POTASSIUM-STAT [id number] 13:31:00 Test Item Value Reference Range Interpretation Comments POTASSIUM (BEAKER) (test code = 6.8 meq/L 3.6-5.5 HH 379) BLOOD GAS, [id number] 13:29:00 Test Item Value Reference Range Interpretation [...] code = 1819) 80.0 % SODIUM NA-STAT [id number] 13:29:00 Test Item Value Reference Range Interpretation Comments SODIUM (BEAKER) (test code = 381) 130 meq/L 135-148 L GLUCOSE-STAT [id number] 13:29:00 Test Item Value Reference Range Interpretation Comments GLUCOSE RANDOM (BEAKER) (test code 213 mg/dL 70-110 H = 652) HGB/HCT (H&H) - STAT [id number] 13:29:00 Test Item Value Reference Range Interpretation Comments HEMOGLOBIN (BEAKER) (test code = 7.8 g/dL 13.0-16.8 L 410) HEMATOCRIT (BEAKER) (test code = 23.0 % 40.0-50.0 L 411) BLOOD GAS, [id number] 13:07:00 Test Item Value Reference Range Interpretation [...] code = 1819) 80.0 % BLOOD GAS, [id number] 13:06:00 Test Item Value Reference Range Interpretation [...] code = 1819) 80.0 % SODIUM NA-STAT [id number] 13:06:00 Test Item Value Reference Range Interpretation Comments SODIUM (BEAKER) (test code = 381) 131 meq/L 135-148 L GLUCOSE-STAT [id number] 13:06:00 Test Item Value Reference Range Interpretation Comments GLUCOSE RANDOM (BEAKER) (test code 121 mg/dL 70-110 H = 652) HGB/HCT (H&H) - STAT [id number] 13:06:00 Test Item Value Reference Range Interpretation Comments HEMOGLOBIN (BEAKER) (test code = 7.9 g/dL 13.0-16.8 L 410) HEMATOCRIT (BEAKER) (test code = 23.0 % 40.0-50.0 L 411) POTASSIUM-STAT [id number] 13:05:00 Test Item Value Reference Range Interpretation Comments POTASSIUM (BEAKER) (test code = 4.2 meq/L 3.6-5.5 379) BLOOD GAS, [id number] 11:02:00 Test Item Value Reference Range Interpretation [...] 1819) 90.0 % HGB/HCT (H&H) - STAT [id number] 11:02:00 Test Item Value Reference Range Interpretation Comments HEMOGLOBIN (BEAKER) (test code = 10.7 g/dL 13.0-16.8 L 410) HEMATOCRIT (BEAKER) (test code = 31.0 % 40.0-50.0 L 411) GLUCOSE-STAT [id number] 11:01:00 Test Item Value Reference Range Interpretation Comments GLUCOSE RANDOM (BEAKER) (test code 104 mg/dL 70-110 = 652) SODIUM NA-STAT [id number] 11:01:00 Test Item Value Reference Range Interpretation Comments SODIUM (BEAKER) (test code = 381) 137 meq/L 135-148 POTASSIUM-STAT [id number] 11:01:00 Test Item Value Reference Range Interpretation Comments POTASSIUM (BEAKER) (test code = 3.6 meq/L 3.6-5.5 379) POCT-GLUCOSE [id number] 08:43:00 Test Item Value Reference Range Interpretation Comments POC-GLUCOSE METER 99 mg/dL 70-[address] [facility] 67[address] (BEAKER) (test code = [place] [address]) HEMOGLOBIN [id number] 13:25:00 Test Item Value Reference Range Interpretation Comments HEMOGLOBIN A1C (BEAKER) (test code = 5.5 % 4.3-6.1 368) [id number] 12:54:00 Test Item Value Reference Range Interpretation Comments MAGNESIUM (BEAKER) (test code = 2.0 mg/dL 1.6-2.6 627) COMPREHENSIVE METABOLIC [id number] 12:54:00 Test Item Value Reference Range Interpretation [...] NOT APPLICABLE FOR DIALYSIS PATIEN TS. LIPID [id number] 12:54:00 Test Item Value Reference Range Interpretation [...] 100-129 Borderline 130-159 High 160-189 Very High >=[id number] 12:48:00 Test Item Value Reference Range Interpretation Comments PARTIAL THROMBOPLASTIN TIME 34.6 seconds 22.5-36.0 (BEAKER) (test code = 760) PROTHROMBIN [id number] 12:47:00 Test Item Value Reference Range Interpretation [...] = 2801) CBC W/PLT COUNT & AUTO [id number] 07:06:00 Test Item Value Reference Range Interpretation [...] = 3438) Received comment: User comments: Slide comments:[id number] 06:09:00 Test Item Value Reference Range Interpretation Comments MAGNESIUM (BEAKER) (test code = 2.2 mg/dL 1.6-2.6 627) BASIC METABOLIC [id number] 06:09:00 Test Item Value Reference Range Interpretation [...] NOT APPLICABLE FOR DIALYSIS PATIEN TS. POCT-GLUCOSE [id number] 10:41:00 Test Item Value Reference Range Interpretation Comments POC-GLUCOSE METER 135 mg/dL 70-[address] [facility] 67[address] ([facility]) (test code = [facility] [address]) [address] RAD, CHEST, 1 VIEW, NON [id number] 05:01:00Reason for exam:->excessive coughingFINAL REPORT RAD, CHEST, 1 VIEW, NON DEPT INDICATION: excessive coughing COMPARISON: Prior day's exam FINDINGS: Portable frontal view of the chest. IMPRESSION: Support Lines: Stable. Lungs and pleura: The lungs are clear. No pleural effusion. No pneumothorax.Heart and mediastinum: Stable contours. Additional findings: None. Signed: Jeanie Corona Verified Date/Time: 05/14/2018 05:01:57 Reading Location: [address] Transitional Reading Room CALCIUM, [id number] 04:16:00 Test Item Value Reference Range Interpretation Comments CALCIUM IONIZED (BEAKER) (test 1.11 mmol/L 1.12-1.27 L code = 698) PH, BLOOD (BEAKER) (test code = 7.40 1810) [id number] 04:16:00 Test Item Value Reference Range Interpretation Comments MAGNESIUM (BEAKER) (test code = 2.2 mg/dL 1.6-2.6 627) BASIC METABOLIC [id number] 04:16:00 Test Item Value Reference Range Interpretation [...] APPLICABLE FOR DIALYSIS PATIEN TS. BLOOD GAS, [id number] 04:15:00 Test Item Value Reference Range Interpretation [...] 21.0 % CBC W/PLT COUNT & AUTO [id number] 03:49:00 Test Item Value Reference Range Interpretation [...] (BEAKER) (test code = 2801) SODIUM NA-STAT [id number] 23:50:00 Test Item Value Reference Range Interpretation Comments SODIUM (BEAKER) (test code = 381) 140 meq/L 135-148 POTASSIUM-STAT [id number] 23:50:00 Test Item Value Reference Range Interpretation Comments POTASSIUM (BEAKER) (test code = 3.8 meq/L 3.6-5.5 379) BLOOD GAS, [id number] 23:50:00 Test Item Value Reference Range Interpretation [...] (test code = 1819) 21.0 % GLUCOSE-STAT [id number] 23:50:00 Test Item Value Reference Range Interpretation Comments GLUCOSE RANDOM (BEAKER) (test code 120 mg/dL 70-110 H = 652) HGB/HCT (H&H) - STAT [id number] 23:50:00 Test Item Value Reference Range Interpretation Comments HEMOGLOBIN (BEAKER) (test code = 10.2 g/dL 13.0-16.8 L 410) HEMATOCRIT (BEAKER) (test code = 30.0 % 40.0-50.0 L 411) RAD, CHEST, 1 VIEW, NON [id number] 22:51:00Reason for exam:->central line placementFINAL REPORT Chest, [...] [place] Verified Date/Time: 05/13/2018 22:51:08 Reading Location: [address] Transitional Reading Room [id number] 19:40:00 Test Item Value Reference Range Interpretation Comments PHOSPHORUS (BEAKER) (test code = 3.0 mg/dL 2.3-4.7 604) [id number] 19:40:00 Test Item Value Reference Range Interpretation Comments MAGNESIUM (BEAKER) (test code = 1.6 mg/dL 1.6-2.6 627) BASIC METABOLIC [id number] 19:40:00 Test Item Value Reference Range Interpretation [...] APPLICABLE FOR DIALYSIS PATIEN TS. HEPATIC FUNCTION [id number] 19:40:00 Test Item Value Reference Range Interpretation [...] U/L 6-55 347) LACTIC ACID, ARTERIAL, WHOLE [id number] 19:36:00 Test Item Value Reference Range Interpretation Comments LACTATE BLOOD ARTERIAL (2) 1.2 mmol/L 0.5-2.2 (BEAKER) (test code = 2874) PROTHROMBIN [id number] 19:25:00 Test Item Value Reference Range Interpretation Comments PROTIME (BEAKER) (test code = 15.1 seconds 11.7-14.7 H 759) INR (BEAKER) (test code = 370) 1.2 <=5.9 RECOMMENDED COUMADIN/WARFARIN INR THERAPY RANGESSTANDARD DOSE: 2.0 - 3.0 Includes: PROPHYLAXIS forvenous thrombosis, systemic embolization; TREATMENT for venous thrombosis and/or pulmonary embolus.HIGH RISK: Target INR is 2.5-3.5 for patients with mechanical heart valves.[id number] 19:25:00 Test Item Value Reference Range Interpretation [...] (BEAKER) (test code = 2801) BLOOD GAS, [id number] 19:12:00 Test Item Value Reference Range Interpretation [...] (test code = 1819) 33.0 % CALCIUM, [id number] 19:12:00 Test Item Value Reference Range Interpretation Comments CALCIUM IONIZED (BEAKER) (test 1.04 mmol/L 1.12-1.27 L code = 698) PH, BLOOD (BEAKER) (test code = 7.40 1810) GLUCOSE-STAT [id number] 19:12:00 Test Item Value Reference Range Interpretation Comments GLUCOSE RANDOM (BEAKER) (test code 135 mg/dL 70-110 H = 652) HGB/HCT (H&H) - STAT [id number] 19:12:00 Test Item Value Reference Range Interpretation Comments HEMOGLOBIN (BEAKER) (test code = 10.7 g/dL 13.0-16.8 L 410) HEMATOCRIT (BEAKER) (test code = 31.0 % 40.0-50.0 L 411) SODIUM NA-STAT [id number] 19:11:00 Test Item Value Reference Range Interpretation Comments SODIUM (BEAKER) (test code = 381) 137 meq/L 135-148 POTASSIUM-STAT [id number] 19:11:00 Test Item Value Reference Range Interpretation Comments POTASSIUM (BEAKER) (test code = 3.7 meq/L 3.6-5.5 379) [id number] 18:24:00 Test Item Value Reference Range Interpretation Comments ACTIVATED CLOTTING TIME 246 [address] ED [address] [facility] 67[address] (BEAKER) (test code = [place] [address]) [address] [id number] 18:24:00 Test Item Value Reference Range Interpretation Comments ACTIVATED CLOTTING TIME 175 sec [address] ED [address] [facility] 67[address] (BEAKER) (test code = [place] [address]) [address] BASIC METABOLIC [id number] 16:10:00 Test Item Value Reference Range Interpretation [...] S NOT APPLICABLE FOR DIALYSIS PATIEN TS. [id number] 16:04:00 Test Item Value Reference Range Interpretation Comments PARTIAL THROMBOPLASTIN TIME 34.2 seconds 22.5-36.0 (BEAKER) (test code = 760) PROTHROMBIN [id number] 16:03:00 Test Item Value Reference Range Interpretation [...] code = 2801) XR Chest 1 View [id number] 07:45:24Patient: JUDD Jr, ALIA Date/Time05/02/2018 07:40 CSTReason for ExamChest painReportHISTORY: Chest painLocation code: T58WQXL: CHEST X- RAY, ONE VIEWCOMPARISON: NoneCOMMENT: Frontal view of the chest is provided. Lungs are hyperinflated suggesting some COPD. No focal infiltrate, consolidation, mass lesion, or effusion is seen. Cardiac silhouette is within normal limits. No acute bony abnormalities.IMPRESSION: COPD. No acute infiltrate. Final Dictated by: Dionne Horn LDictated DT/TM: 05/02/2018 7:44 amSigned by: Dionne Horn LSigned (Electronic Signature): 05/02/2018 7:45 amLipid [id number] 19:23:00 Test Item Value Reference Range Interpretation Comments Cholesterol (test 148 mg/dL 0-200 N code = CHOL) Triglycerides (test 123 mg/dL 9-200 N code = TRIG) HDL (test code = 41 mg/dL 40-60 N HDL) Chol/HDL (test code 3.6 Ratio 0.0-5.0 N = CHOLPHDL) LDL, Calculated 82 mg/dL 0-130 N (NOTE)RISK O F HEART (test code = LDLC) DISEASEPu blished by [place] Heart AssociationAnal yte Optim al Boderline Increased RiskC HOL <200 200-239 >240TRI G <150 150-199 >200HDL Male: >60 <40HDL Female: >60 <50 LDL < 100 130-15 9 >160 LDL NEAR OPTIMAL IS 100- 129 VLDL (test code = 25 mg/dL 5-40 N VLDL) LDL/HDL (test code = 2 LDLPHDL)
[2020-04-15 09:12] VITALS: O2SAT 100
[2020-04-15 09:13] VITALS: BMI 21.9
[2020-04-15] MEDS ORDERED: NA CHLORIDE 0.9% 250 ML ONE ×2 (10:57→13:30)
[2020-04-15 17:39] VITALS: BP 118/55; TEMP 98.1
[2020-04-15 17:50] LABS: Hematocrit 28.5 % (39.6-49.0)
== END 2020-04-15 17:38 | disposition home or self-care (01) ==
LOC: DS 08:30
PROVIDERS: ATTEND Internal Medicine Medical Oncology
DX: D64.9 Anemia, unspecified (principal); D46.Z Other myelodysplastic syndromes; D61.818 Other pancytopenia
CPT/HCPCS: 36415; 86900; 86850; 86901; 85018; 85014; 36430; P9016 ×2; J7050 ×2